=== PATIENT | female | born 1945 | race Caucasian/White ===

== ENCOUNTER → 2018-05-29 | Outpatient (CLI) | payer MEDICARE ==
--- NOTE | 2018-05-29 22:56 | XR ---
EXAMINATION TYPE: XR Hip Bilateral Complete, 2 views each side DATE OF EXAM: 05/29/2018 COMPARISON: NONE HISTORY: 72-year-old female probably arthropathy, bilateral hip pain, trouble walking for 2 weeks TECHNIQUE: 4 views total FINDINGS: There is mild axial joint space narrowing at both hips with marginal spurring. Osteopenia. No acute f racture, subluxation, or dislocation seen. Some changes of osteitis pubis. Additional subarticular sc lerosis in both SI joints. No displaced fracture. IMPRESSION: 1. Mild degenerative change in both hips with axial joint space narrowing. 2. Osteitis pubis and additional degenerative change at both SI joints. 3. Osteopenia without displaced fractures.
== END | disposition home or self-care (01) ==
LOC: RADXRMAIN 15:09
PROVIDERS: ATTEND Internal Medicine Rheumatology
DX: M25.851 Other specified joint disorders, right hip (principal); M25.852 Other specified joint disorders, left hip; M85.88 Other specified disorders of bone density and structure, other site; M86.8X8 Other osteomyelitis, other site
CPT/HCPCS: 73521

== ENCOUNTER → 2018-07-08 | Outpatient (CLI) | payer MEDICARE | END | disposition home or self-care (01) | LOC: RADMRIMAIN 14:37 | PROVIDERS: ATTEND Physical Medicine & Rehabilitation | DX: Z53.9 Procedure and treatment not carried out, unspecified reason (principal) ==

== ENCOUNTER → 2018-07-23 | Outpatient (CLI) | payer MEDICARE ==
--- NOTE | 2018-07-23 15:23 | CT ---
EXAMINATION TYPE: CT lumbar spine wo con DATE OF EXAM: 07/23/2018 1:48 PM COMPARISON: CT thorax dated 05/30/2016 HISTORY: Low back pain X 6 months. R/O Spondylosis without myelopathy CT DLP: 507.30 mGycm Automated exposure control for dose reduction was used. TECHNIQUE: Unenhanced CT of the lumbar spine was performed. Bone and soft tissue window settings are submitted as well as coronal and sagittal reconstructions. FINDINGS: There is an exaggeration of the usual lumbar lordosis. There is very mild anterolisthesis ( grade 1) of L5 on S1, likely on a degenerative basis as there is facet hypertrophy. No pars interarti cularis defects are identified. Mild multilevel degenerative change of the lumbar spine is seen. Ther e is a small compression deformity of T12 with approximately 15% vertebral body height loss of the mi d body and no retropulsion. This is seen on the prior CT thorax dated 05/30/2016. Fibrotic changes are seen at the lung bases with subpleural reticulation and interlobular septal thic kening. Probable mild cardiomegaly is also demonstrated. There is a small hiatal hernia seen. The gal lbladder is enlarged containing innumerable gallstones. Too small to accurately characterize left vinny al lesion is incompletely evaluated without contrast. Probable right sacral perineural cyst is seen on series 4 image 78 and 79. This could be confirmed wi th MR. There is slight subsequent enlargement of the neural foramen and on bone windows aerated L1-L2: There is a small broad-based disc bulge without spinal canal stenosis or significant neural fo raminal narrowing. L2-L3: There is a broad-based disc bulge and facet arthropathy resulting in mild bilateral neural for aminal narrowing and mild spinal canal stenosis. L3-L4: There is a broad-based disc bulge resulting in mild bilateral neural foraminal narrowing and m ild spinal canal stenosis. L4-L5: There is a broad-based disc bulge and vacuum disc disease resulting in minimal bilateral neura l foraminal narrowing. No significant spinal canal stenosis is seen. L5-S1: There is disc uncovering from the anterolisthesis. Minimal bilateral neural foraminal narrowin g is seen. No spinal canal stenosis. Degenerative disc disease and a broad-based disc bulge are prese nt. IMPRESSION: 1. No evidence of acute fracture of the lumbar spine. Chronic mild compression deformity of the T12 v ertebral body is unchanged from the prior CT thorax of 05/30/2016. 2. Grade 1 anterolisthesis of L4 on L5 is likely on degenerative basis due to facet hypertrophy. 3. 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 4. Multilevel degenerative disc disease resulting in multilevel neural foraminal narrowing and spinal canal stenosis that appears mild from L2 through L4. Findings could be better assessed with MRI. 5. Enlarged gallbladder containing innumerable gallstones. 6. Fibrotic changes of the lung bases.
== END | disposition home or self-care (01) ==
LOC: RADCTMAIN 13:16
PROVIDERS: ATTEND Physical Medicine & Rehabilitation
DX: M48.061 Spinal stenosis, lumbar region without neurogenic claudication (principal); M99.73 Connective tissue and disc stenosis of intervertebral foramina of lumbar region; M43.16 Spondylolisthesis, lumbar region; M51.36 Other intervertebral disc degeneration, lumbar region
CPT/HCPCS: 72131

== ENCOUNTER → 2018-08-20 | Outpatient (CLI) | payer MEDICARE ==
--- NOTE | 2018-08-20 20:23 | BD ---
EXAMINATION TYPE: Axial Bone Density DATE OF EXAM: 08/20/2018 CLINICAL HISTORY: 72-year-old female long-term steroid use, postmenopausal screening Height: 66 inches Weight: 180 FRAX RISK QUESTIONS: Alcohol (3 or more units per day): no Family History (Parent hip fracture): no Glucocorticoids (More than 3mos): yes (Ex: prednisone, prednisolone, methylprednisolone, dexamethasone, and hydrocortisone). History of Fracture in Adulthood: no Secondary Osteoporosis: 1. Type 1 Diabetes: no 2. Hyperthyroidism: no 3. Menopause before 45: no 4. Malnutrition: no 5. Chronic liver disease: no Rheumatoid Arthritis: no Current Tobacco Use: no RISK FACTORS HISTORY OF: Family History of Osteoporosis: unsure Active: not fully Diet low in dairy products/other sources of calcium: no Postmenopausal woman: yes Take estrogen and/or progesterone medications: no Lost more than 2 inches in height since high school: unsure Frequent falls: no Poor Health: no Hyperparathyroidism: no Adrenal Insufficiency: no MEDICATIONS: Prednisone or other steroids: yes How Long: about 2 years Thyroid Medications: no Osteoporosis Medications: no Additional Medications: multi-vitamin Additional History: see CT Lumbar Spine report 07/23/18; Scleroderma; osteoarthritis EXAM MEASUREMENTS: Bone mineral densitometry was performed using the Stupil System. Bone mineral density as measured about the Lumbar spine is: ----- L1-L4(G/cm2): 0.826 T Score Values are as follows: ----- L2: -3.6 ----- L3: -2.7 ----- L4: -3.0 ----- L1-L4: -2.9 Bone mineral density BASELINE Bone mineral density about the R hip (g/cm2): 0.582 Bone mineral density about the L hip (g/cm2): 0.631 T Score values are as follows: -----R Neck: -3-3 -----L Neck: -2.9 -----R Total: -3.7 -----L Total: -3.5 Bone mineral density BASELINE IMPRESSION: Osteoporosis (T Score less than -2.5). There is increased fracture risk and therapy is usually indicated based on age. Re-Screen 1-2 years. NOTE: T-SCORE=SD OF THE YOUNG ADULT MEAN.
== END ==
LOC: RADBDWWP 13:47
PROVIDERS: ATTEND Internal Medicine Rheumatology
DX: M81.0 Age-related osteoporosis without current pathological fracture (principal); Z79.52 Long term (current) use of systemic steroids
CPT/HCPCS: 77080

== ENCOUNTER → 2019-05-12 | Outpatient (CLI) | payer MEDICARE | DX: J98.9 Respiratory disorder, unspecified (principal) | CPT/HCPCS: 94060; 94726; 94729 ==

== ENCOUNTER → 2019-07-02 | Outpatient (CLI) | payer MEDICARE ==
--- NOTE | 2019-07-03 11:49 | ECHOF ---
Referral Reason:M34.9 Systemic sclerosis, unspecified MEASUREMENTS -------- HEIGHT: 180.3 cm WEIGHT: 81.6 kg BP: RVIDd: 3.0 cm (< 3.3) IVSd: 1.2 cm (0.6 - 1.1) LVIDd: 3.6 cm (3.9 - 5.3) LVPWd: 1.3 cm (0.6 - 1.1) IVSs: 1.4 cm LVIDs: 1.5 cm LVPWs: 2.0 cm LAESV Index (A-L): 23.30 ml/m Ao Diam: 3.0 cm (2.0 - 3.7) AV Cusp: 1.8 cm (1.5 - 2.6) LA Diam: 4.0 cm (2.7 - 3.8) MV EXCURSION: 18.395 mm (> 18.000) MV EF SLOPE: 67 mm/s (70 - 150) EPSS: 0.6 cm MV E Jose Carlos: 0.64 m/s MV DecT: 178 ms MV A Jose Carlos: 0.97 m/s MV E/A Ratio: 0.66 RAP: 5.00 mmHg RVSP: 26.04 mmHg FINDINGS -------- Sinus rhythm. This was a technically good study. The left ventricular size is normal. There is mild concentric left ventricular hypertrophy. Overa ll left ventricular systolic function is normal with, an EF between 55 - 60 %. The diastolic fillin g pattern is normal for the age of the patient 13.72. The right ventricle is normal in size. The left atrial size is normal. Normal LA size by volume 22+/-6 ml/m2. The right atrial size is normal. The aortic valve is trileaflet and appears structurally normal. The mitral valve is normal. There is trace mitral regurgitation. The tricuspid valve appears structurally normal. Trace tricuspid regurgitation present. Right amadeo tricular systolic pressure is normal at < 35 mmHg. There is no pulmonic regurgitation present. The aortic root size is normal. Normal inferior vena cava with normal inspiratory collapse consistent with estimated right atrial pre ssure of 5 mmHg. The pulmonary veins were not recorded. There is no pericardial effusion. CONCLUSIONS -------- 1. Sinus rhythm. 2. This was a technically good study. 3. The left ventricular size is normal. 4. There is mild concentric left ventricular hypertrophy. 5. Overall left ventricular systolic function is normal with, an EF between 55 - 60 %. 6. The diastolic filling pattern is normal for the age of the patient 13.72 7. The right ventricle is normal in size. 8. The left atrial size is normal. 9. Normal LA size by volume 22+/-6 ml/m2. 10. The right atrial size is normal. 11. The aortic valve is trileaflet and appears structurally normal. 12. The mitral valve is normal. 13. There is trace mitral regurgitation. 14. The tricuspid valve appears structurally normal. 15. Trace tricuspid regurgitation present. 16. Right ventricular systolic pressure is normal at < 35 mmHg. 17. There is no pulmonic regurgitation present. 18. The aortic root size is normal. 19. Normal inferior vena cava with normal inspiratory collapse consistent with estimated right atrial pressure of 5 mmHg. 20. The pulmonary veins were not recorded. 21. There is no pericardial effusion. OUTREACH LIAISON: Cynthia Bass RDCS
== END | disposition home or self-care (01) ==
LOC: RADECHMAIN 14:48
PROVIDERS: ATTEND Internal Medicine Rheumatology
DX: I51.7 Cardiomegaly (principal); M34.9 Systemic sclerosis, unspecified
CPT/HCPCS: 93306

== ENCOUNTER → 2019-12-02 | Outpatient (CLI) | payer MEDICARE ==
--- NOTE | 2019-12-02 15:19 | CT ---
EXAMINATION TYPE: CT chest wo con DATE OF EXAM: 12/02/2019 COMPARISON: Chest CT May 30, 2016 and older study August 04, 2015 HISTORY: Follow up for systemic sclerosis. Interstitial lung disease per order. CT DLP: 80 mGycm. Automated Exposure Control for Dose Reduction was Utilized. TECHNIQUE: CT scan of the thorax is performed without IV contrast. High-resolution protocol ordered with typical 1 mm sequences obtained in supine and prone position at 10 mm intervals. FINDINGS: Exam is suboptimal as patient cannot tolerate prone positioning for prone imaging. LUNGS: Some patchy reticulation and groundglass opacity in the lateral posterior aspect left upper lo be infiltrate seen extending inferiorly is redemonstrated. The mid to lower lungs there is peripheral reticulonodular opacity with increased prominence in the bases just above the diaphragm. Images also show motion artifact degradation. There is some honeycombing when middle lobe thought present axial image 39. No pleural effusion or pneumothorax. No pulmonary masses. MEDIASTINUM: Lack of IV contrast is noted to limit evaluation for mediastinal and especially hilar ad enopathy. There are no definitive greater than 1 cm hilar or mediastinal lymph nodes. No pericardia l effusion is seen. Heart size stable and upper limits of normal. Enlarged main pulmonary artery 3.4 cm, CT findings consistent with underlying pulmonary hypertension.1 OTHER: Prominent right axillary lymph node measuring 1.6 x 1.0 cm axial image 15 warrants follow-up n ew or more prominent from 2016 study. Multilevel spurring in the spine. Multiple small calcified gall stones in gallbladder redemonstrated IMPRESSION: Suboptimal study with pulmonary fibrotic changes greater in the lower lungs redemonstrate d, no obvious progression from 2016 CT. New or more prominent right axillary lymph node, targeted ult rasound follow-up advised.
--- NOTE | 2019-12-03 08:01 | ECHOF ---
Referral Reason:I10 hypertention MEASUREMENTS -------- HEIGHT: 175.3 cm WEIGHT: 81.6 kg BP: RVIDd: 2.4 cm (< 3.3) IVSd: 1.5 cm (0.6 - 1.1) LVIDd: 4.1 cm (3.9 - 5.3) LVPWd: 1.5 cm (0.6 - 1.1) IVSs: 1.7 cm LVIDs: 2.7 cm LVPWs: 1.7 cm LAESV Index (A-L): 22.05 ml/m Ao Diam: 2.8 cm (2.0 - 3.7) AV Cusp: 2.0 cm (1.5 - 2.6) LA Diam: 3.7 cm (2.7 - 3.8) MV EXCURSION: 17.354 mm (> 18.000) MV EF SLOPE: 148 mm/s (70 - 150) EPSS: 0.4 cm MV E Jose Carlos: 1.00 m/s MV DecT: 198 ms MV A Jose Carlos: 1.09 m/s MV E/A Ratio: 0.92 AV maxP.93 mmHg AV meanP.67 mmHg RAP: 5.00 mmHg RVSP: 37.42 mmHg FINDINGS -------- Sinus rhythm. This was a technically good study. The left ventricular size is normal. There is moderate concentric left ventricular hypertrophy. O verall left ventricular systolic function is normal with, an EF between 55 - 60 %. Normal LAP. Grad e 1 Diastolic Dysfunction. The right ventricle is normal in size. The left atrial size is normal. Normal LA size by volume 22+/-6 ml/m2. The right atrial size is normal. The aortic valve is trileaflet and appears structurally normal. Peak/mean gradient across the Aorti c Valve is 16.93mmHg / 9.67mmHg. The mitral valve is normal. The mitral valve leaflets are mildly thickened. Mild mitral regurgita tion is present. The tricuspid valve appears structurally normal. Mild tricuspid regurgitation present. There is m ild pulmonary hypertension. The right ventricular systolic pressure, as measured by Doppler, is 37. 42mmHg. There is no pulmonic regurgitation present. The aortic root size is normal. Normal inferior vena cava with normal inspiratory collapse consistent with estimated right atrial pre ssure of 5 mmHg. There is no pericardial effusion. CONCLUSIONS -------- 1. Sinus rhythm. 2. This was a technically good study. 3. The left ventricular size is normal. 4. There is moderate concentric left ventricular hypertrophy. 5. Overall left ventricular systolic function is normal with, an EF between 55 - 60 %. 6. Normal LAP. Grade 1 Diastolic Dysfunction. 7. The right ventricle is normal in size. 8. The left atrial size is normal. 9. Normal LA size by volume 22+/-6 ml/m2. 10. The right atrial size is normal. 11. The aortic valve is trileaflet and appears structurally normal. 12. Peak/mean gradient across the Aortic Valve is 16.93mmHg / 9.67mmHg. 13. The mitral valve is normal. 14. The mitral valve leaflets are mildly thickened. 15. Mild mitral regurgitation is present. 16. The tricuspid valve appears structurally normal. 17. Mild tricuspid regurgitation present. 18. There is mild pulmonary hypertension. 19. The right ventricular systolic pressure, as measured by Doppler, is 37.42mmHg. 20. There is no pulmonic regurgitation present. 21. The aortic root size is normal. 22. Normal inferior vena cava with normal inspiratory collapse consistent with estimated right atrial pressure of 5 mmHg. 23. There is no pericardial effusion. EMS COORDINATOR: Cynthia Bass RDCS
== END | disposition home or self-care (01) ==
LOC: RADCTMAIN 14:10
PROVIDERS: ATTEND Internal Medicine
DX: J84.10 Pulmonary fibrosis, unspecified (principal); R59.0 Localized enlarged lymph nodes; I08.1 Rheumatic disorders of both mitral and tricuspid valves; I27.20 Pulmonary hypertension, unspecified; M34.9 Systemic sclerosis, unspecified
CPT/HCPCS: 71250; 93306

== ENCOUNTER → 2020-05-10 | Outpatient (CLI) | payer MEDICARE | END | disposition home or self-care (01) | LOC: CPPFTMAIN 13:35 | DX: R94.2 Abnormal results of pulmonary function studies (principal); M34.9 Systemic sclerosis, unspecified | CPT/HCPCS: 94060; 94726; 94729 ==

== ENCOUNTER 2020-08-26 23:36 | Inpatient (IN) | payer MEDICARE ==
--- NOTE | 2020-08-27 00:51 | ED ---
SOB HPI <Ayaan Causey - Last Filed: 08/27/20 02:41> - General Source: patient Mode of arrival: EMS Limitations: no limitations <Muna Cortes - Last Filed: 08/27/20 03:31> - General Chief Complaint: Shortness of Breath Stated Complaint: + COVID, SURYA Time Seen by Provider: 08/26/20 23:38 - History of Present Illness Initial Comments: 74-year-old female patient presents as a transfer from [facility] for COVID-19, hypoxia, and elevated troponin. They believe that her elevated troponin is related to NSTEMI secondary to hypoxia. She was started on heparin there. Review of labs reveals patient had elevated troponin at 0.542, BNP 5600, elevated d-dimer at 3.82. Patient denies history of lung conditions, heart conditions, or diabetes. States that she is usually generally healthy. She is reporting shortness of breath and cough. States she's had symptoms for the last 4-5 days worsening today which prompted her visit to the emergency department. Apparently upon EMS arrival at her home she had O2 saturation in the 60s and appeared very dusky and short of breath. Patient denies any recent rash, fever, chills, cough, shortness of breath, chest pain, abdominal pain, nausea, vomiting, diarrhea, constipation, back pain, numbness, tingling, dizziness, weakness, hematuria, dysuria, urinary urgency, urinary frequency, headache, visual changes, or any other complaints. (Muna Cortes) - Related Data Home Medications Medication Instructions Recorded Confirmed NIFEdipine [Nifedical Xl] 30 mg PO DAILY 06/28/15 12/15/15 Furosemide [Lasix] 20 mg PO DAILY PRN 10/06/15 12/15/15 Allergies Allergy/AdvReac Type Severity Reaction Status Date / Time clindamycin HCl Allergy Rash/Hives Verified 12/15/15 14:16 [From Cleocin] clindamycin palmitate HCl Allergy Rash/Hives Verified 12/15/15 14:16 [From Cleocin] clindamycin phosphate Allergy Rash/Hives Verified 12/15/15 14:16 [From Cleocin] latex Allergy Rash/Hives Verified 12/15/15 14:16 Review of Systems ROS Other: All systems not noted in ROS Statement are negative. <Ayaan Causey - Last Filed: 08/27/20 02:41> ROS Other: All systems not noted in ROS Statement are negative. <Muna Cortes M - Last Filed: 08/27/20 03:31> ROS Statement: Those systems with pertinent positive or pertinent negative responses have been documented in the HPI. Past Medical History Additional Past Medical History / Comment(s): Raunaulds syndrome, Scoliosis of the skin, varicose veins, hx bleeding from ruptured varicosities. History of Any Multi-Drug Resistant Organisms: None Reported Past Surgical History: No Surgical Hx Reported Past Psychological History: No Psychological Hx Reported Smoking Status: Never smoker Past Alcohol Use History: None Reported Past Drug Use History: None Reported - Past Family History Mother Family Medical History: Dementia, Hypertension Additional Family Medical History / Comment(s): Lived until 102 Father Family Medical History: COPD Additional Family Medical History / Comment(s): in his late 60's from emphysema <SebastianMuna M - Last Filed: 08/27/20 03:31> General Exam Limitations: no limitations General appearance: alert, in no apparent distress, other (This is a well- developed, well-nourished elderly female patient in no acute distress. Vital signs upon presentation are temperature 97.3F, pulse 72, respirations 23, blood pressure 127/73, pulse ox 96% on 15 L via nonrebreather.) ENT exam: Present: normal exam, normal oropharynx, mucous membranes moist Neck exam: Present: normal inspection. Absent: tenderness, meningismus, lymphadenopathy Respiratory exam: Present: normal lung sounds bilaterally. Absent: respiratory distress, wheezes, rales, rhonchi, stridor Cardiovascular Exam: Present: regular rate, normal rhythm, normal heart sounds. Absent: systolic murmur, diastolic murmur, rubs, gallop, clicks GI/Abdominal exam: Present: soft, normal bowel sounds. Absent: distended, tenderness, guarding, rebound, rigid Neurological exam: Present: alert, oriented X3, CN II-XII intact Psychiatric exam: Present: normal affect, normal mood Skin exam: Present: warm, dry, intact, normal color. Absent: rash <Muna Cortes M - Last Filed: 08/27/20 03:31> Course Vital Signs 08/26/20 23:53 Temperature 97.3 F L Pulse Rate 72 Respiratory 23 Rate Blood Pressure 127/73 O2 Sat by Pulse 96 Oximetry Medical Decision Making <GlenysAyaan shay - Last Filed: 08/27/20 02:41> - EKG Data -: EKG Interpreted by Me - Radiology Data Radiology results: report reviewed, image reviewed <Muna Cortes - Last Filed: 08/27/20 03:31> - Medical Decision Making I saw this patient in conjunction with the nurse practitioner. I performed independent history and physical exam. Agree with case management. (Ayaan Causey) 74-year-old female patient is a transfer from [facility] for positive coated and hypoxia. Patient also had elevated troponin which is felt to be NSTEMI secondary to hypoxia. Patient was initially found to be 60% on room air when EMS arrived to her home. She was started on 15 L via nonrebreather and transferred to the hospital. There she underwent testing and ended up having positive coated and troponin at 0.54, BNP at 5600. She also had elevated d- dimer at 3.82. She was started on heparin and transferred here for further evaluation and monitoring. Upon arrival we did perform CT angiography of the chest to rule out pulmonary embolism, this is negative. She did receive a dose of dexamethasone at the previous facility. Case was discussed with Dr. Swenson who recommends admission to ICU. Dr. Cooper was consulted by my attending Dr. Causey. I did discuss CODE STATUS with the patient, she agrees to receiving CPR but does not want intubation at this time. (Muna Cortes) - EKG Data EKG Comments: EKG obtained at oh to 16 shows normal sinus rhythm with an incomplete right bundle branch block. Ventricular rate is 76, ND interval 138, QRS duration 92, QT 394, QTC 443. No evidence of ST elevation or depression (Muna Cortes) - Radiology Data CT angiography of the chest was obtained. Report was reviewed in its entirety. Impression by Dr. Han shows extensive patchy groundglass opacities throughout the lungs. Correlate with coated. Pulmonary edema not excluded. Cardiomegaly. No pulmonary embolus. (Muna Cortes) Disposition <GlenyslauritaAyaan - Last Filed: 08/27/20 02:41> Decision to Admit Reason: Admit from EC Decision Date: 08/27/20 Decision Time: 02:52 <Muna Cortes - Last Filed: 08/27/20 03:31> Clinical Impression: COVID-19, Hypoxia, NSTEMI (non-ST elevated myocardial infarction) Disposition: ADMITTED IP TO THIS HOSP Condition: Serious
--- NOTE | 2020-08-27 02:04 | CT ---
EXAM: CT Angiography Chest With Intravenous Contrast CLINICAL HISTORY: ITS.REASON CT Reason: Elevated D-dimer; Elevated trop TECHNIQUE: Axial computed tomographic angiography images of the chest with intravenous contrast. CTDI is 19.57 mGy and DLP is 261.9 mGy-cm. This CT exam was performed using one or more of the following dose reduction techniques: automated exposure control, adjustment of the mA and/or kV according to patient size, and/or use of iterative reconstruction technique. MIP reconstructed images were created and reviewed. COMPARISON: 12/02/2019 FINDINGS: Pulmonary arteries: No filling defects. Aorta: No thoracic aortic aneurysm. Lungs: Extensive patchy groundglass opacities throughout the lungs. Pleural space: No pneumothorax. No effusion. Heart: cardiomegaly. No pericardial effusion. Bones/joints: No acute fracture or dislocation. Soft tissues: Unremarkable. Lymph nodes: No enlarged lymph nodes. IMPRESSION: 1. Extensive patchy groundglass opacities throughout the lungs. Correlate with COVID. Pulmonary edema not excluded. 2. Cardiomegaly. 3. No pulmonary embolism.
[2020-08-27] MEDS ORDERED: NALOXONE 0.4 MG/ML 1 ML VIAL IV PRN (02:24)
[2020-08-27] MEDS: HEPARIN SOD,PORK IN 0.45% NACL 25,000 UNIT in 0.45% NACL 1 250ML.BAG IV SCH (03:43)
[2020-08-27 04:11] LABS: Basophils % (A) 1 %; Eosinophils % (A) 0 %; HCT 36.5 % (34.0-46.0); HGB 11.7 gm/dL (11.4-16.0); Hypochromasia Slight; Lymphocytes # (A) 0.6 k/uL (1.0-4.8); Lymphocytes % (A) 11 %; MCH 26.5 pg (25.0-35.0); MCHC 32.2 g/dL (31.0-37.0); MCV 82.3 fL (80.0-100.0); Mean Platelet Volume 7.9; Monocytes # (A) 0.2 k/uL (0-1.0); Monocytes % (A) 3 %; Neutrophils # (A) 4.4 k/uL (1.3-7.7); Neutrophils % (A) 83 %; Platelet Count 349 k/uL (150-450); RBC 4.43 m/uL (3.80-5.40); RDW 15.5 % (11.5-15.5); WBC 5.3 k/uL (3.8-10.6)
[2020-08-27 04:21] LABS: Prothrombin Time 10.7 sec (9.0-12.0)
--- NOTE | 2020-08-27 09:57 | P.CRDCN ---
History of Present Illness Consult date: 08/27/20 History of present illness: This is a 74-year-old female with history of hypertension who is been having symptoms of shortness of breath and cough for 4 to 5 days prior to admission. Patient was taken by EMS to [facility] because of shortness of breath and hypoxia. She was diagnosed to have COVID Pneumonia. She was also found to have mildly elevated troponin values. Patient did not have any chest pain, according to the information available. EKG not reveal any acute changes of ischemia. From the available information, patient did not have any history of previous myocardial infarction or ischemic heart disease. The pattern of troponin elevation is not consistent with acute coronary syndrome. Could be related to hypoxia related to pneumonia. We'll get an echocardiogram to assess LV function. Patient is being treated for Covid with cocktail. Prognosis is guarded. This patient is not personally examined because of COVID infection. 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 History of Any Multi-Drug Resistant Organisms: None Reported Past Surgical History: No Surgical Hx Reported Past Psychological History: No Psychological Hx Reported Smoking Status: Never smoker Past Alcohol Use History: None Reported Past Drug Use History: None Reported - Past Family History Mother Family Medical History: Dementia, Hypertension Additional Family Medical History / Comment(s): Lived until 102 Father Family Medical History: COPD Additional Family Medical History / Comment(s): in his late 60's from emphysema Medications and Allergies Home Medications Medication Instructions Recorded Confirmed Type NIFEdipine [Nifedical Xl] 30 mg PO DAILY 06/28/15 12/15/15 History Furosemide [Lasix] 20 mg PO DAILY PRN 10/06/15 12/15/15 History Allergies Allergy/AdvReac Type Severity Reaction Status Date / Time clindamycin HCl Allergy Rash/Hives Verified 12/15/15 14:16 [From Cleocin] clindamycin palmitate HCl Allergy Rash/Hives Verified 12/15/15 14:16 [From Cleocin] clindamycin phosphate Allergy Rash/Hives Verified 12/15/15 14:16 [From Cleocin] latex Allergy Rash/Hives Verified 12/15/15 14:16 Physical Exam Vitals: Vital Signs Temp Pulse Resp BP Pulse Ox 08/27/20 08:00 68 18 117/67 95 08/27/20 06:00 72 20 124/77 100 08/27/20 05:00 75 20 118/69 89 L 08/27/20 03:47 99.1 F 78 20 117/76 95 08/27/20 01:00 94 L 08/27/20 00:00 24 08/26/20 23:53 97.3 F L 72 23 127/73 96 Intake and Output 08/26/20 08/27/20 08/27/20 22:59 06:59 14:59 Other: Weight 81.647 kg Patient is not personally examined. Heart rhythm is regular. Information is gathered from nurses notes and consultants reports. Results 08/27/20 03:25 Cardiac Enzymes 08/27/20 08/27/20 Range/Units 02:21 03:25 Troponin I 0.530 H* 0.486 H* (0.000-0.034) ng/mL Coagulation 08/27/20 Range/Units 03:25 PT 10.7 (9.0-12.0) sec APTT 21.0 L (22.0-30.0) sec CBC 08/27/20 Range/Units 03:25 WBC 5.3 (3.8-10.6) k/uL RBC 4.43 (3.80-5.40) m/uL Hgb 11.7 (11.4-16.0) gm/dL Hct 36.5 (34.0-46.0) % Plt Count 349 (150-450) k/uL Current Medications Generic Name Dose Route Start Last Admin Trade Name Alexanderq PRN Reason Stop Dose Admin Acetaminophen 650 mg 08/27/20 02:30 Acetaminophen Tab 325 Mg Tab PO Q4HR PRN Fever and/or Mild Pain Dexamethasone 6 mg 08/27/20 09:00 Dexamethasone 2 Mg Tab PO DAILY ISAÍAS Heparin Sodium (Porcine) 0 unit 08/27/20 02:23 Heparin Sodium,Porcine 5,000 Unit/Ml 1 Ml Vial IV PER PROTOCOL PRN Low PTT Protocol Heparin Sodium/Sodium Chloride 250 mls @ 9.798 mls/hr 08/27/20 02:30 08/27/20 03:43 25,000 unit/ Sodium Chloride IV 12 units/kg/hr .Q24H ISA[facility]AS 9.798 mls/hr Administration Protocol 12 UNITS/KG/HR Naloxone HCl 0.2 mg 08/27/20 02:24 Naloxone 0.4 Mg/Ml 1 Ml Vial IV Q2M PRN Opioid Reversal Intake and Output 08/26/20 08/27/20 08/27/20 22:59 06:59 14:59 Other: Weight 81.647 kg 08/27/20 03:25 EKG Interpretations (text) Sinus rhythm Assessment and Plan (1) Troponin level elevated Current Visit: Yes Status: Acute Code(s): R77.8 - OTHER SPECIFIED ABNORMALITIES OF PLASMA PROTEINS SNOMED Code(s): 400703711 (2) COVID-19 Current Visit: Yes Status: Acute Code(s): U07.1 - COVID-19 SNOMED Code(s): 472997150 (3) Hypoxia Current Visit: Yes Status: Acute Code(s): R09.02 - HYPOXEMIA SNOMED Code(s): 677251837 Plan: Continue current medical therapy. Get an echocardiogram to rule out any wall motion abnormalities. Further recommendation depending upon the clinical course. Continue with aspirin and beta blockers
[2020-08-27] MEDS: HEPARIN SODIUM,PORCINE 5,000 UNIT/ML 1 ML VIAL IV PRN (11:12)
[2020-08-27] MEDS: dexAMETHasone 2 MG TAB PO SCH (11:43)
[2020-08-27] MEDS ORDERED: PSEUDOEPHEDRINE 12HR 120 MG TABLET.ER PO PRN (12:38)
[2020-08-27] MEDS ORDERED: NON FORMULARY DRUG (Acetaminophen [Tylenol Arthritis] 650 MG Tablet.Er) PO PRN (12:38)
[2020-08-27] MEDS: NIFEdipine XL 30 MG TAB.ER.24 PO SCH ×2 (13:49→21:15)
[2020-08-27] MEDS ORDERED: REMDESIVIR 200 MG in SODIUM CHLORIDE 0.9% 250 ML IVPB ONE (16:00)
--- NOTE | 2020-08-27 16:14 | P.HPIM ---
History of Present Illness H&P Date: 08/27/20 Claribel Ruiz, is a 74-year-old female patient of Dr. christiansen who presented to [facility] with a chief complaint of cough and shortness of breath, patient was transferred from [facility] she had elevated troponin level and positive Covid 19 testing she was evaluated in emergency room she was started on IV heparin [facility] in the relation non-ST elevation myocardial infarction with elevated troponin, patient also had elevated d-dimer at 3.[address] angiogram of the chest that was negative for pulmonary embolism however it was positive for extensive patchy groundglass opacities throughout the lungs. Patient was seen and examined in the emergency room she is alert and oriented 3 in no apparent distress she is maintained on oxygen via nasal cannula at 6 L there is no fever or chills no headache or dizziness she has cough and shortness of breath no chest pain no nausea or vomiting no abdominal pain no diarrhea no blood in the stools no burning with urination no frequency or urgency and no hematuria Past Medical History Additional Past Medical History / Comment(s): Raunaulds syndrome, Scoliosis of the skin, varicose veins, hx bleeding from ruptured varicosities. History of Any Multi-Drug Resistant Organisms: None Reported Past Surgical History: No Surgical Hx Reported Past Psychological History: No Psychological Hx Reported Smoking Status: Never smoker Past Alcohol Use History: None Reported Past Drug Use History: None Reported - Past Family History Mother Family Medical History: Dementia, Hypertension Additional Family Medical History / Comment(s): Lived until 102 Father Family Medical History: COPD Additional Family Medical History / Comment(s): in his late 60's from emphysema Medications and Allergies Home Medications Medication Instructions Recorded Confirmed Type NIFEdipine [Nifedical Xl] 30 mg PO BID 06/28/15 08/27/20 History Acetaminophen [Tylenol Arthritis] 650 mg PO Q8H PRN 08/27/20 08/27/20 History Alendronate Sodium [Binosto] 70 mg PO WE 08/27/20 08/27/20 History Celebrex Unknown Strength 1 cap PO DAILY PRN 08/27/20 08/27/20 History Cholecalciferol [Vitamin D3 (25 1,000 unit PO DAILY 08/27/20 08/27/20 History Mcg = 1000 Iu)] Mycophenolate Mofetil [Cellcept] 500 mg PO TID 08/27/20 08/27/20 History Pseudoephedrine 12Hr [Sudafed 12Hr] 120 mg PO Q12H PRN 08/27/20 08/27/20 History predniSONE 10 mg PO DAILY 08/27/20 08/27/20 History traMADol HCL 50 mg PO TID PRN 08/27/20 08/27/20 History Allergies Allergy/AdvReac Type Severity Reaction Status Date / Time clindamycin HCl Allergy Rash/Hives Verified 08/27/20 10:09 [From Cleocin] clindamycin palmitate HCl Allergy Rash/Hives Verified 08/27/20 10:09 [From Cleocin] clindamycin phosphate Allergy Rash/Hives Verified 08/27/20 10:09 [From Cleocin] latex Allergy Rash/Hives Verified 08/27/20 10:09 Physical Exam Vitals: Vital Signs Temp Pulse Resp BP Pulse Ox 08/27/20 11:11 65 16 116/64 90 L 08/27/20 11:00 98.1 F 76 18 116/64 91 L 08/27/20 08:00 68 18 117/67 95 08/27/20 06:00 72 20 124/77 100 08/27/20 05:00 75 20 118/69 89 L 08/27/20 03:47 99.1 F 78 20 117/76 95 08/27/20 01:00 94 L 08/27/20 00:00 24 08/26/20 23:53 97.3 F L 72 23 127/73 96 Intake and Output 08/26/20 08/27/20 08/27/20 22:59 06:59 14:59 Intake Total 73.485 Balance 73.485 Intake: Intake, IV Titration 73.485 Amount Heparin Sod,Pork in 0.45% 73.485 NaCl 25,000 unit In 0.45 % NaCl 1 250ml.bag @ 12 UNITS/KG/HR 9.798 mls/hr IV .Q24H [facility] Rx#: [id number] Other: Weight 81.647 kg In general patient is alert and oriented 3 in no apparent distress HEENT head normocephalic and atraumatic Neck is supple no JVD no goiter no lymphadenopathy Chest exam reveals fine crackles in both lung torres no wheezing Cardiac exam reveals regular heart sounds S1 and S2 no gallops no murmurs Abdomen is soft nontender no organomegaly with normal bowel sounds Extremity exam reveals minimal edema no cyanosis or clubbing Neurological examination reveals no gross focal neurological deficit Results CBC & Chem 7: 08/27/20 03:25 Labs: Abnormal Lab Results - Last 24 Hours (Table) 08/27/20 08/27/20 08/27/20 Range/Units 02:21 03:25 03:25 Lymphocytes # 0.6 L (1.0-4.8) k/uL APTT 21.0 L (22.0-30.0) sec Troponin I 0.530 H* (0.000-0.034) ng/mL 08/27/20 Range/Units 03:25 Lymphocytes # (1.0-4.8) k/uL APTT (22.0-30.0) sec Troponin I 0.486 H* (0.000-0.034) ng/mL Assessment and Plan Plan: 1. Covid 19 pneumonia pulmonary consultation requested, patient will be started on Decadron and Remdesevi 2. Elevated troponin level, patient was seen by cardiology, it was felt that her troponin elevation is related to hypoxia there was no evidence of acute coronary syndrome 3. Underlying history of scoliosis with chronic back pain 4. Underlying history of Raynaud's syndrome 5. Underlying history of hypertension At this time medication and labs were reviewed Cardiology and pulmonary consultation requested Recheck labs and chest x-ray in a.m. Will follow closely
--- NOTE | 2020-08-27 17:18 | P.CNPUL ---
History of Present Illness Consult date: 08/27/20 Requesting physician: Akbar Swenson Reason for consult: other (Acute hypoxic respiratory failure secondary to covid 19 pneumonitis.) Chief complaint: Cough and shortness of breath History of present illness: This is a 74-year-old female with history of multiple medical problems including scleroderma, Raynaud's syndrome, patient was transferred yesterday from [facility] to [facility] with symptoms of shortness of breath, fever, and she was noted to have positive pcr covid 19. Patient was also noted to have elevated troponin level while at [facility]. Patient was started on heparin at [facility] for presumptive non-ST elevation myocardial infarction, CT angiogram done at [facility] showed extensive patchy groundglass opacities affecting both lungs. Patient required increase in her FiO2 up to 15 L flow per minute, and I was asked to see her on consultation. I saw this patient in the ER, she is now on 11 L high flow nasal cannula, and her O2 saturation is ranging anywhere between 91-95%. Patient is noted to be in no distress, her symptoms of shortness of breath are about 1 week in urination. After evaluating the patient, we recommended that the patient goes on the Covid 19 cocktail, and we initiated remdesivir. Patient clearly wished DO NOT RES USCITATE CODE STATUS, hence we'll arrange for the patient to be transferred to a regular medical floor instead of transferred to the ICU. Review of Systems Constitutional: Fever, chills, vague aches and pains, no weight loss. HEENT: Negative. Pulmonary: Cough and shortness of breath GI: Negative Genitourinary: Negative Muscular skeletal: Negative Skin: Negative Psychiatric: Negative Hematologic: Negative Neurologic: Negative Psychiatric: Past Medical History Additional Past Medical History / Comment(s): Raunaulds syndrome, Scoliosis of the skin, varicose veins, hx bleeding from ruptured varicosities. History of Any Multi-Drug Resistant Organisms: None Reported Past Surgical History: No Surgical Hx Reported Past Psychological History: No Psychological Hx Reported Smoking Status: Never smoker Past Alcohol Use History: None Reported Past Drug Use History: None Reported - Past Family History Mother Family Medical History: Dementia, Hypertension Additional Family Medical History / Comment(s): Lived until 102 Father Family Medical History: COPD Additional Family Medical History / Comment(s): in his late 60's from emphysema Medications and Allergies Home Medications Medication Instructions Recorded Confirmed Type NIFEdipine [Nifedical Xl] 30 mg PO BID 06/28/15 08/27/20 History Acetaminophen [Tylenol Arthritis] 650 mg PO Q8H PRN 08/27/20 08/27/20 History Alendronate Sodium [Binosto] 70 mg PO WE 08/27/20 08/27/20 History Celebrex Unknown Strength 1 cap PO DAILY PRN 08/27/20 08/27/20 History Cholecalciferol [Vitamin D3 (25 1,000 unit PO DAILY 08/27/20 08/27/20 History Mcg = 1000 Iu)] Mycophenolate Mofetil [Cellcept] 500 mg PO TID 08/27/20 08/27/20 History Pseudoephedrine 12Hr [Sudafed 12Hr] 120 mg PO Q12H PRN 08/27/20 08/27/20 History predniSONE 10 mg PO DAILY 08/27/20 08/27/20 History traMADol HCL 50 mg PO TID PRN 08/27/20 08/27/20 History Allergies Allergy/AdvReac Type Severity Reaction Status Date / Time clindamycin HCl Allergy Rash/Hives Verified 08/27/20 10:09 [From Cleocin] clindamycin palmitate HCl Allergy Rash/Hives Verified 08/27/20 10:09 [From Cleocin] clindamycin phosphate Allergy Rash/Hives Verified 08/27/20 10:09 [From Cleocin] latex Allergy Rash/Hives Verified 08/27/20 10:09 Physical Exam Vitals: Vital Signs Temp Pulse Resp BP Pulse Ox 08/27/20 16:36 60 22 117/59 91 L 08/27/20 11:11 65 16 116/64 90 L 08/27/20 11:00 98.1 F 76 18 116/64 91 L 08/27/20 08:00 68 18 117/67 95 08/27/20 06:00 72 20 124/77 100 08/27/20 05:00 75 20 118/69 89 L 08/27/20 03:47 99.1 F 78 20 117/76 95 08/27/20 01:00 94 L 08/27/20 00:00 24 08/26/20 23:53 97.3 F L 72 23 127/73 96 Intake and Output 08/27/20 08/27/20 08/27/20 06:59 14:59 22:59 Intake Total 73.485 Balance 73.485 Intake: Intake, IV Titration 73.485 Amount Heparin Sod,Pork in 0.45% 73.485 NaCl 25,000 unit In 0.45 % NaCl 1 250ml.bag @ 12 UNITS/KG/HR 9.798 mls/hr IV .Q24H [facility] Rx#: [id number] Other: Weight 81.647 kg General appearance: Revealed a 74-year-old female on 11 L high flow nasal cannula, in no distress ENT exam: Present: normal exam, normal oropharynx, mucous membranes moist Neck exam: Present: normal inspection. Absent: tenderness, meningismus, lymphadenopathy Respiratory exam: Symmetrical chest expansion, minimal fine crackles at the bases, no rhonchi and no wheezes. Cardiovascular Exam: Normal S1 and S2, no S3 gallop. No murmur. GI/Abdominal exam: Soft nontender no megaly no rebound no guarding. Neurological exam: Alert and oriented 3, no gross focal deficits. Psychiatric exam: Normal mood, affect and normal mental status examination. Skin exam: No rashes, no cyanosis, no jaundice. Results - Laboratory Findings CBC and BMP: 08/27/20 03:25 PT/INR, D-dimer PT 10.7 sec (9.0-12.0) 08/27/20 03:25 INR 1.0 (<1.2) 08/27/20 03:25 Abnormal lab findings: Abnormal Labs 08/27/20 08/27/20 08/27/20 02:21 03:25 03:25 Lymphocytes # 0.6 L APTT 21.0 L Troponin I 0.530 H* 08/27/20 03:25 Lymphocytes # APTT Troponin I 0.486 H* - Diagnostic Findings CT scan - chest: image reviewed (CT angiogram of the chest showed extensive patchy groundglass opacities throughout both lungs. Differential diagnosis of course includes Covid 19 pneumonitis and/or pulmonary edema or both.) Assessment and Plan Assessment: Impression: Acute hypoxic respiratory failure secondary to Covid 19 pneumonitis. History of scleroderma and Raynaud's syndrome. History of benign essential hypertension. Elevated troponin on presentation, felt to be nonsignificant by cardiology on the case. Recommendation: Continue present supportive care measures. Admit patient to regular medical floor. Titrate oxygen to maintain O2 saturation above 90%. Continue remdesivir Continue the Covid 19 cocktail. We'll continue to follow. Time with Patient: Greater than 30
--- NOTE | 2020-08-27 18:02 | XR ---
EXAMINATION TYPE: XR chest 1V DATE OF EXAM: 08/27/2020 COMPARISON: Yesterday HISTORY: Short of breath TECHNIQUE: Single view FINDINGS: There is moderately severe diffuse pulmonary interstitial infiltrate. Heart is borderline e nlarged. Pulmonary vascularity is difficult to evaluate. There is no definite pleural effusion. IMPRESSION: Extensive pulmonary interstitial pneumonia is the same or slightly worse than yesterday.
[2020-08-27] MEDS: METOPROLOL TARTRATE 12.5 MG TAB PO SCH (21:19)
[2020-08-27] MEDS: ASPIRIN 81 MG PO SCH (21:19)
[2020-08-28] MEDS: HEPARIN SOD,PORK IN 0.45% NACL 25,000 UNIT in 0.45% NACL 1 250ML.BAG IV SCH ×2 (03:12→09:28)
[2020-08-28 05:21] LABS: Basophils # (A) 0.1 k/uL (0-0.2); Basophils % (A) 1 %; Eosinophils % (A) 0 %; HCT 35.2 % (34.0-46.0); HGB 11.1 gm/dL (11.4-16.0); Hypochromasia Slight; Lymphocytes # (A) 1.2 k/uL (1.0-4.8); Lymphocytes % (A) 12 %; MCH 26.2 pg (25.0-35.0); MCHC 31.5 g/dL (31.0-37.0); MCV 83.3 fL (80.0-100.0); Mean Platelet Volume 8.1; Monocytes # (A) 0.5 k/uL (0-1.0); Monocytes % (A) 5 %; Neutrophils # (A) 7.7 k/uL (1.3-7.7); Neutrophils % (A) 79 %; Platelet Count 414 k/uL (150-450); RBC 4.22 m/uL (3.80-5.40); RDW 15.8 % (11.5-15.5); WBC 9.7 k/uL (3.8-10.6)
[2020-08-28] MEDS: traMADol 50 MG TAB PO PRN ×2 (05:59→21:25)
[2020-08-28] MEDS: HEPARIN SODIUM,PORCINE 5,000 UNIT/ML 1 ML VIAL IV PRN (06:00)
[2020-08-28] MEDS: dexAMETHasone 2 MG TAB PO SCH (09:30)
[2020-08-28] MEDS: CHOLECALCIFEROL 1,000 UNIT TAB PO SCH (09:30)
[2020-08-28] MEDS: METOPROLOL TARTRATE 12.5 MG TAB PO SCH ×2 (09:30→21:25)
[2020-08-28] MEDS: NIFEdipine XL 30 MG TAB.ER.24 PO SCH ×2 (09:31→22:32)
[2020-08-28 10:01] LABS: African American GFR (CKD) 103.3 (60.0-200.0); Albumin 3.6 g/dL (3.80-4.90); Albumin/Globulin Ratio 1.5 (1.60-3.17); Anion Gap 11.1 mmol/L (4.00-12.00); Carbon Dioxide 23.9 mmol/L (21.6-31.8); Globulin 2.4 g/dL (1.6-3.3); Non-African American GFR(CKD) 89.2 (60.0-200.0); Potassium 4.5 mmol/L (3.5-5.5); Total Bilirubin 0.4 mg/dL (0.2-1.2)
--- NOTE | 2020-08-28 11:18 | ECHOF ---
Referral Reason: MEASUREMENTS -------- HEIGHT: 177.8 cm WEIGHT: 81.6 kg BP: IVSd: 1.2 cm (0.6 - 1.1) LVIDd: 4.2 cm (3.9 - 5.3) LVPWd: 1.0 cm (0.6 - 1.1) EDV(Teich): 78 ml IVSs: 1.8 cm LVIDs: 3.4 cm LVPWs: 1.7 cm %IVS Thck: 50 % ESV(Teich): 46 ml EF(Teich): 42 % %FS: 20 % SV(Teich): 33 ml RVIDd: 2.8 cm (< 3.3) IVC: 15.40 mm Ao Diam: 2.9 cm (2.0 - 3.7) LA Diam: 3.6 cm (2.7 - 3.8) AV Cusp: 1.9 cm (1.5 - 2.6) EPSS: 0.9 cm MV E Jose Carlos: 0.70 m/s MV DecT: 271 ms MV Dec [place]: 2.6 m/s MV A Jose Carlos: 1.05 m/s MV E/A Ratio: 0.67 MV PHT: 79 ms MR Vmax: 2.77 m/s MR maxP.72 mmHg AV Vmax: 1.60 m/s AV maxP.27 mmHg TR Vmax: 3.09 m/s TR maxP.24 mmHg RAP: 5.00 mmHg RVSP: 43.24 mmHg MV EF SLOPE: 66.11 mm/s (70 - 150) MV EXCURSION: 13.54 mm (> 18.000) FINDINGS -------- This was a technically adequate study. The left ventricular size is normal. There is borderline concentric left ventricular hypertrophy. Overall left ventricular systolic function is low-normal with, an EF between 50 - 55 %. The right ventricle is normal in size. The left atrial size is normal. The right atrial size is normal. The aortic valve is trileaflet and appears structurally normal. The mitral valve is normal. The mitral valve leaflets are mildly thickened. Mild mitral regurgita tion is present. There is mild mitral valve prolapse. The tricuspid valve appears structurally normal. Mild tricuspid regurgitation present. There is m ild pulmonary hypertension. The right ventricular systolic pressure, as measured by Doppler, is 43. 24mmHg. There is no pulmonic regurgitation present. The aortic root size is normal. Normal inferior vena cava with normal inspiratory collapse consistent with estimated right atrial pre ssure of 5 mmHg. There is no pericardial effusion. CONCLUSIONS -------- 1. The left ventricular size is normal. 2. There is borderline concentric left ventricular hypertrophy. 3. Overall left ventricular systolic function is low-normal with, an EF between 50 - 55 %. 4. The mitral valve leaflets are mildly thickened. 5. Mild mitral regurgitation is present. 6. There is mild mitral valve prolapse. 7. Mild tricuspid regurgitation present. 8. There is mild pulmonary hypertension. 9. The right ventricular systolic pressure, as measured by Doppler, is 43.24mmHg. 10. There is no pericardial effusion. REFUELER: Cynthia Bass RDCS
--- NOTE | 2020-08-28 13:44 | P.PN ---
Subjective Progress Note Date: 08/28/20 Principal diagnosis: Acute hypoxic respiratory failure secondary to CoVID 19 pneumonitis This is a 74-year-old female with history of multiple medical problems including scleroderma, Raynaud's syndrome, patient was transferred yesterday from [facility] to [facility] with symptoms of shortness of breath, fever, and she was noted to have positive pcr covid 19. Patient was also noted to have elevated troponin level while at [place]. Patient was started on heparin at [facility] for presumptive non-ST elevation myocardial infarction, CT angiogram done at [place] showed extensive patchy groundglass opacities affecting both lungs. Patient required increase in her FiO2 up to 15 L flow per minute, and I was asked to see her on consultation. I saw this patient in the ER, she is now on 11 L high flow nasal cannula, and her O2 saturation is ranging anywhere between 91-95%. Patient is noted to be in no distress, her symptoms of shortness of breath are about 1 week in urination. After evaluating the patient, we recommended that the patient goes on the Covid 19 cocktail, and we initiated remdesivir. Patient clearly wished DO NOT RESU SCITATE CODE STATUS, hence we'll arrange for the patient to be transferred to a regular medical floor instead of transferred to the ICU. The patient is seen today 08/28/2020 in follow-up on the regular medical floor. She is currently sitting up in a chair at the bedside. Awake and alert in no ac juno distress. He states her breathing is a bit easier today compared to yesterday. Still dyspneic with minimal exertion. Still requiring 11 L high flow nasal cannula to maintain O2 saturations in the 90s. She's been afebrile. Hemodynamically stable. White count 9.7. Hemoglobin 11.1. Sodium 138. Potassium 4.5. Creatinine 0.6. This is day 2 of Remdesivir. She remains on dexamethasone, heparin drip for elevated troponin. Objective - Vital Signs Vital signs: Vital Signs Temp 97.5 F L 08/28/20 08:00 Pulse 73 08/28/20 08:00 Resp 16 08/28/20 08:00 BP 101/61 08/28/20 08:00 Pulse Ox 96 08/28/20 08:00 Intake & Output 08/27/20 08/28/20 08/28/20 18:59 06:59 18:59 Intake Total 73.485 510.807 105.076 Balance 73.485 510.807 105.076 Weight 78.018 kg Intake: Intake, IV Titration 73.485 210.807 105.076 Amount Heparin Sod,Pork in 0.45% 73.485 210.807 105.076 NaCl 25,000 unit In 0.45 % NaCl 1 250ml.bag @ 12 UNITS/KG/HR 9.798 mls/hr IV .Q24H [facility] Rx#: [id number] Oral 300 Other: Voiding Method Bedside Commode Bedside Commode # Voids 1 1 - Exam GENERAL EXAM: Alert, pleasant 74-year-old female patient, on 11 L high flow nasal cannula, up in a chair at the bedside, comfortable in no apparent distress. HEAD: Normocephalic. EYES: Normal reaction of pupils, equal size. NOSE: Clear with pink turbinates. THROAT: No erythema or exudates. NECK: No masses, no JVD. CHEST: No chest wall deformity. LUNGS: Equal air entry with basilar crackles, no wheeze, rhonchi or dullness. CVS: S1 and S2 normal with no audible murmur, regular rhythm. ABDOMEN: No hepatosplenomegaly, normal bowel sounds, no guarding or rigidity. SPINE: No scoliosis or deformity SKIN: No rashes CENTRAL NERVOUS SYSTEM: No focal deficits, tone is normal in all 4 extremities. EXTREMITIES: There is no peripheral edema. No clubbing, no cyanosis. Peripheral pulses are intact. - Labs CBC & Chem 7: 08/28/20 04:21 08/28/20 04:21 Labs: Abnormal Lab Results - Last 24 Hours (Table) 08/27/20 08/28/20 08/28/20 Range/Units 16:58 04:21 04:21 Hgb 11.1 L (11.4-16.0) gm/dL RDW 15.8 H (11.5-15.5) % APTT 45.9 H (22.0-30.0) sec BUN/Creatinine Ratio 40.00 H (12.00-20.00) Ratio Glucose 113 H (70-110) mg/dL Total Protein 6.0 L (6.2-8.2) g/dL Albumin 3.60 L (3.80-4.90) g/dL Albumin/Globulin Ratio 1.50 L (1.60-3.17) g/dL 08/28/20 Range/Units 12:07 Hgb (11.4-16.0) gm/dL RDW (11.5-15.5) % APTT 56.1 H (22.0-30.0) sec BUN/Creatinine Ratio (12.00-20.00) Ratio Glucose (70-110) mg/dL Total Protein (6.2-8.2) g/dL Albumin (3.80-4.90) g/dL Albumin/Globulin Ratio (1.60-3.17) g/dL Assessment and Plan Assessment: 1 Acute hypoxic respiratory failure secondary to cope 19 pneumonitis 2 History of scleroderma 3 History of Raynaud's syndrome 4 Hypertension 5 Troponin leak, currently on heparin drip Plan: The patient was seen and evaluated by Dr. Ortez Labs reviewed Titrate down the FiO2 as tolerated Continue Remdesivir and dexamethasone Currently on a heparin drip Continue vitamin C, vitamin D, zinc, Pepcid, melatonin. We will continue to follow I, the cosigning physician, performed a history & physical examination of the patient. Lungs sounds with basilar crackles. Maintaining good O2 saturations in the 90s on 11 L high flow nasal cannula. I discussed the assessment and plan of care with my nurse practitioner, Marti Espinoza. I attest to the above note as dictated by her.
[2020-08-28] MEDS: ASCORBIC ACID 500 MG TAB PO SCH (15:56)
[2020-08-28] MEDS: ZINC SULFATE 220 MG CAP PO SCH (15:56)
[2020-08-28] MEDS: REMDESIVIR 100 MG in SODIUM CHLORIDE 0.9% 250 ML IVPB SCH (15:56)
[2020-08-28] MEDS: MELATONIN 5 MG TABLET PO SCH (21:25)
[2020-08-28] MEDS: FAMOTIDINE 20 MG TAB PO SCH (21:25)
[2020-08-28] MEDS: ASPIRIN 81 MG PO SCH (21:25)
[2020-08-29] MEDS: HEPARIN SOD,PORK IN 0.45% NACL 25,000 UNIT in 0.45% NACL 1 250ML.BAG IV SCH ×2 (02:30→23:34)
[2020-08-29 08:21] LABS: Anisocytosis Slight; HCT 33.8 % (34.0-46.0); HGB 10.6 gm/dL (11.4-16.0); Hypochromasia Slight; MCH 26.3 pg (25.0-35.0); MCHC 31.4 g/dL (31.0-37.0); MCV 83.6 fL (80.0-100.0); Platelet Count 376 k/uL (150-450); RBC 4.04 m/uL (3.80-5.40); RDW 16.2 % (11.5-15.5)
[2020-08-29] MEDS: METOPROLOL TARTRATE 12.5 MG TAB PO SCH ×2 (09:46→22:24)
[2020-08-29] MEDS: CHOLECALCIFEROL 1,000 UNIT TAB PO SCH (09:46)
[2020-08-29] MEDS: ASCORBIC ACID 500 MG TAB PO SCH (09:46)
[2020-08-29] MEDS: dexAMETHasone 2 MG TAB PO SCH (09:46)
[2020-08-29] MEDS: FAMOTIDINE 20 MG TAB PO SCH ×2 (09:46→22:23)
[2020-08-29] MEDS: ZINC SULFATE 220 MG CAP PO SCH (09:46)
[2020-08-29] MEDS: NIFEdipine XL 30 MG TAB.ER.24 PO SCH ×2 (09:47→22:24)
[2020-08-29 09:53] LABS: Band Neutrophils % 1 %; Metamyelocytes # (M) 0.13 k/uL (0); Metamyelocytes % 1 %; Monocytes # (M) 0.65 k/uL (0-1.0); Neutrophils % (M) 85 %; Nucleated Red Blood Cells 0 /100 WBC (0-0); Total Cells Counted 200
[2020-08-29 09:55] LABS: African American GFR (CKD) 103.3 (60.0-200.0); Albumin 3.5 g/dL (3.80-4.90); Albumin/Globulin Ratio 1.52 (1.60-3.17); Anion Gap 8.4 mmol/L (4.00-12.00); BUN/Creat Ratio 46.67 Ratio (12.00-20.00); Calcium 8.7 mg/dL (8.7-10.3); Carbon Dioxide 24.6 mmol/L (21.6-31.8); Globulin 2.3 g/dL (1.6-3.3); Non-African American GFR(CKD) 89.2 (60.0-200.0); Poikilocytosis (M) Present; Polychromasia Present; Potassium 4.1 mmol/L (3.5-5.5); Total Bilirubin 0.5 mg/dL (0.2-1.2); Total Protein 5.8 g/dL (6.2-8.2)
[2020-08-29 09:56] LABS: Ovalocytes Present; RBC Fragments Present
--- NOTE | 2020-08-29 16:36 | P.PN ---
Subjective Progress Note Date: 08/29/20 Principal diagnosis: Acute hypoxic respiratory failure related to COVID 19 pneumonitis This is a 74-year-old female with history of multiple medical problems including scleroderma, Raynaud's syndrome, patient was transferred yesterday from [facility] to [facility] with symptoms of shortness of breath, fever, and she was noted to have positive pcr covid 19. Patient was also noted to have elevated troponin level while at [place] [facility]. Patient was started on heparin at [facility] for presumptive non-ST elevation myocardial infarction, CT angiogram done at [place] showed extensive patchy groundglass opacities affecting both lungs. Patient required increase in her FiO2 up to 15 L flow per minute, and I was asked to see her on consultation. I saw this patient in the ER, she is now on 11 L high flow nasal cannula, and her O2 saturation is ranging anywhere between 91-95%. Patient is noted to be in no distress, her symptoms of shortness of breath are about 1 week in urination. After evaluating the patient, we recommended that the patient goes on the Covid 19 cocktail, and we initiated remdesivir. Patient clearly wished DO NOT RESUSC ITATE CODE STATUS, hence we'll arrange for the patient to be transferred to a regular medical floor instead of transferred to the ICU. The patient is seen today 08/28/2020 in follow-up on the regular medical floor. She is currently sitting up in a chair at the bedside. Awake and alert in no acute distress. He states her breathing is a bit easier today compared to yesterday. Still dyspneic with minimal exertion. Still requiring 11 L high flow nasal cannula to maintain O2 saturations in the 90s. She's been afebrile. Hemodynamically stable. White count 9.7. Hemoglobin 11.1. Sodium 138. Potassium 4.5. Creatinine 0.6. This is day 2 of Remdesivir. She remains on dexamethasone, heparin drip for elevated troponin. On 08/29/2020 patient seen in follow-up on the medical surgical floor. She remains on high flow oxygen, per Airvo at 3 L/m, and FiO2 of 65%, and a pulse ox 93-94%, she's been afebrile, hemodynamically stable, does have tremors of breath with exertion, but breathing comfortably at rest, her last chest x-ray was on 08/19/2020 shown extensive pulmonary interstitial pneumonia. Patient continues on oral Decadron, she is on day 3 of Remdesivir treatment. Today's labs have been reviewed, showing white blood cell count of 13, hemoglobin of 10.6, electrolytes were unremarkable, renal profile was unremarkable. Objective - Vital Signs Vital signs: Vital Signs Temp 97.5 F L 08/29/20 14:00 Pulse 51 L 08/29/20 14:00 Resp 19 08/29/20 14:00 BP 113/65 08/29/20 14:00 Pulse Ox 93 L 08/29/20 14:00 Intake & Output 08/28/20 08/29/20 08/29/20 18:59 06:59 18:59 Intake Total 345.076 795.87 Output Total 300 Balance 45.076 795.87 Intake: Intake, IV Titration 105.076 195.87 Amount Heparin Sod,Pork in 0.45% 105.076 195.87 NaCl 25,000 unit In 0.45 % NaCl 1 250ml.bag @ 12 UNITS/KG/HR 9.798 mls/hr IV .Q24H [facility] Rx#: [id number] Oral 240 600 Output: Urine 300 Other: Voiding Method Bedside Commode Bedside Commode Bedside Commode # Voids 1 2 - Exam GENERAL EXAM: Alert, very pleasant, 74-year-old white female, on Airvo at 30 L/m, and FiO2 of 65% comfortable in no apparent distress. HEAD: Normocephalic/atraumatic. EYES: Normal reaction of pupils, equal size. Conjunctiva pink, sclera white. NOSE: Clear with pink turbinates. THROAT: No erythema or exudates. NECK: No masses, no JVD, no thyroid enlargement, no adenopathy. CHEST: No chest wall deformity. Symmetrical expansion. LUNGS: Equal air entry with no crackles, wheeze, rhonchi or dullness. CVS: Regular rate and rhythm, normal S1 and S2, no gallops, no murmurs, no rubs ABDOMEN: Soft, nontender. No hepatosplenomegaly, normal bowel sounds, no guarding or rigidity. EXTREMITIES: No clubbing, no edema, no cyanosis, 2+ pulses and upper and lower extremities. MUSCULOSKELETAL: Muscle strength and tone normal. SPINE: No scoliosis or deformity SKIN: No rashes CENTRAL NERVOUS SYSTEM: Alert and oriented -3. No focal deficits, tone is normal in all 4 extremities. PSYCHIATRIC: Alert and oriented -3. Appropriate affect. Intact judgment and insight. - Labs CBC & Chem 7: 08/29/20 06:24 08/29/20 06:24 Labs: Abnormal Lab Results - Last 24 Hours (Table) 08/29/20 08/29/20 08/29/20 Range/Units 06:24 06:24 06:24 WBC 13.0 H (3.8-10.6) k/uL Hgb 10.6 L (11.4-16.0) gm/dL Hct 33.8 L (34.0-46.0) % RDW 16.2 H (11.5-15.5) % Neutrophils # (Manual) 11.10 H (1.3-7.7) k/uL Metamyelocytes # (Man) 0.13 H (0) k/uL APTT 51.8 H (22.0-30.0) sec BUN 28.0 H (9.0-27.0) mg/dL BUN/Creatinine Ratio 46.67 H (12.00-20.00) Ratio Total Protein 5.8 L (6.2-8.2) g/dL Albumin 3.50 L (3.80-4.90) g/dL Albumin/Globulin Ratio 1.52 L (1.60-3.17) g/dL Assessment and Plan Plan: Assessment: #1. Acute hypoxic respiratory failure secondary to comorbid 19 pneumonitis, started on the Remdesivir on 08/27/2020 #2. History of scleroderma #3. History of Raynaud's syndrome #4. Hypertension #5. Troponin leak, currently on heparin drip, patient was evaluated by cardiology and it was felt that the troponin elevation was related to hypoxia and there was no evidence of acute coronary syndrome Plan: Follow-up chest x-ray in the morning, weaning FiO2, vital signs are stable, patient is on day 3 of Remdesivir, continue Decadron, continue vitamins, and anticoagulation, once heparin is stopped we'll consider switch the patient over to Lovenox, will defer on the decision to discontinue the heparin to cardiology. I performed a history & physical examination of the patient and discussed their management with my nurse practitioner, Teagan Ceron. I reviewed the nurse practitioner's note and agree with the documented findings and plan of care. Lung sounds are positive for diminished breath sounds. The findings and the impression was discussed with the patient. I attest to the documentation by the nurse practitioner. Time with Patient: Less than 30
[2020-08-29] MEDS: traMADol 50 MG TAB PO PRN (16:51)
[2020-08-29] MEDS: REMDESIVIR 100 MG in SODIUM CHLORIDE 0.9% 250 ML IVPB SCH (16:52)
--- NOTE | 2020-08-29 19:40 | P.PN ---
Subjective Progress Note Date: 08/28/20 Claribel Ruiz, is a 74-year-old female patient of Dr. stokes who presented to [facility] with a chief complaint of cough and shortness of breath, patient was transferred from [facility] she had elevated troponin level and positive Covid 19 testing she was evaluated in emergency room she was started on IV heparin [facility] in the relation non-ST elevation myocardial infarction with elevated troponin, patient also had elevated d-dimer at 3.[address] angiogram of the chest that was negative for pulmonary embolism however it was positive for extensive patchy groundglass opacities throughout the lungs. Patient was seen and examined in the emergency room she is alert and oriented 3 in no apparent distress she is maintained on oxygen via nasal cannula at 6 L there is no fever or chills no headache or dizziness she has cough and shortness of breath no chest pain no nausea or vomiting no abdominal pain no diarrhea no blood in the stools no burning with urination no frequency or urgency and no hematuria. On 08/28/2020 patient was seen and examined on the medical floor, she is alert and oriented 3 in no distress she is complaining of cough and shortness of breath she is complaining of generalized weakness otherwise she denies any complaints there is no fever or chills no headache or dizziness no chest pain no palpitation no nausea or vomiting no abdominal pain no diarrhea no blood in the stools no burning with urination no frequency or urgency no hematuria Objective - Vital Signs Vital signs: Vital Signs Temp 97.5 F L 08/28/20 08:00 Pulse 73 08/28/20 08:00 Resp 16 08/28/20 08:00 BP 101/61 08/28/20 08:00 Pulse Ox 96 08/28/20 08:00 Intake & Output 08/27/20 08/28/20 08/28/20 18:59 06:59 18:59 Intake Total 73.485 510.807 50.946 Balance 73.485 510.807 50.946 Weight 78.018 kg Intake: Intake, IV Titration 73.485 210.807 50.946 Amount Heparin Sod,Pork in 0.45% 73.485 210.807 50.946 NaCl 25,000 unit In 0.45 % NaCl 1 250ml.bag @ 12 UNITS/KG/HR 9.798 mls/hr IV .Q24H [facility] Rx#: [id number] Oral 300 Other: Voiding Method Bedside Commode # Voids 1 - Exam In general patient is alert and oriented 3 in no apparent distress HEENT head normocephalic and atraumatic Neck is supple no JVD no goiter no lymphadenopathy Chest exam reveals fine crackles in both lung torres no wheezing Cardiac exam reveals regular heart sounds S1 and S2 no gallops no murmurs Abdomen is soft nontender no organomegaly with normal bowel sounds Extremity exam reveals minimal edema no cyanosis or clubbing Neurological examination reveals no gross focal neurological deficit - Labs CBC & Chem 7: 08/28/20 04:21 08/28/20 04:21 Labs: Abnormal Lab Results - Last 24 Hours (Table) 08/27/20 08/28/20 Range/Units 16:58 04:21 Hgb 11.1 L (11.4-16.0) gm/dL RDW 15.8 H (11.5-15.5) % APTT 45.9 H (22.0-30.0) sec Assessment and Plan Plan: 1. Covid 19 pneumonia pulmonary consultation requested, patient will be started on Decadron and Remdesevir 2. Elevated troponin level, patient was seen by cardiology, it was felt that her troponin elevation is related to hypoxia there was no evidence of acute coronary syndrome 3. Underlying history of scoliosis with chronic back pain 4. Underlying history of Raynaud's syndrome 5. Underlying history of hypertension At this time medication and labs were reviewed Cardiology and pulmonary consultation requested Recheck labs and chest x-ray in a.m. Will follow closely
--- NOTE | 2020-08-29 19:41 | P.PN ---
Subjective Progress Note Date: 08/29/20 Claribel Ruiz, is a 74-year-old female patient of Dr. stokes who presented to [facility] with a chief complaint of cough and shortness of breath, patient was transferred from [facility] she had elevated troponin level and positive Covid 19 testing she was evaluated in emergency room she was started on IV heparin [facility] in the relation non-ST elevation myocardial infarction with elevated troponin, patient also had elevated d-dimer at 3.[address] angiogram of the chest that was negative for pulmonary embolism however it was positive for extensive patchy groundglass opacities throughout the lungs. Patient was seen and examined in the emergency room she is alert and oriented 3 in no apparent distress she is maintained on oxygen via nasal cannula at 6 L there is no fever or chills no headache or dizziness she has cough and shortness of breath no chest pain no nausea or vomiting no abdominal pain no diarrhea no blood in the stools no burning with urination no frequency or urgency and no hematuria. On 08/28/2020 patient was seen and examined on the medical floor, she is alert and oriented 3 in no distress she is complaining of cough and shortness of breath she is complaining of generalized weakness otherwise she denies any complaints there is no fever or chills no headache or dizziness no chest pain no palpitation no nausea or vomiting no abdominal pain no diarrhea no blood in the stools no burning with urination no frequency or urgency no hematuria On 08/29/2020 patient was seen and examined on the medical floor, she is alert and oriented in no distress she is complaining of cough and shortness of breath she is complaining of generalized weakness, she is complaining of hemoorrhoides with pain and discomfort otherwise she denies any complaints there is no fever or chills no headache or dizziness no chest pain no palpitation no nausea or vomiting no abdominal pain no diarrhea no blood in the stools no burning with urination no frequency or urgency no hematuria Objective - Vital Signs Vital signs: Vital Signs Temp 97.4 F L 08/29/20 07:49 Pulse 58 L 08/29/20 07:49 Resp 18 08/29/20 07:49 BP 111/68 08/29/20 07:49 Pulse Ox 94 L 08/29/20 11:40 Intake & Output 08/28/20 08/29/20 08/29/20 18:59 06:59 18:59 Intake Total 345.076 795.87 Output Total 300 Balance 45.076 795.87 Intake: Intake, IV Titration 105.076 195.87 Amount Heparin Sod,Pork in 0.45% 105.076 195.87 NaCl 25,000 unit In 0.45 % NaCl 1 250ml.bag @ 12 UNITS/KG/HR 9.798 mls/hr IV .Q24H [facility] Rx#: [id number] Oral 240 600 Output: Urine 300 Other: Voiding Method Bedside Commode Bedside Commode # Voids 1 2 - Exam In general patient is alert and oriented 3 in no apparent distress HEENT head normocephalic and atraumatic Neck is supple no JVD no goiter no lymphadenopathy Chest exam reveals fine crackles in both lung torres no wheezing Cardiac exam reveals regular heart sounds S1 and S2 no gallops no murmurs Abdomen is soft nontender no organomegaly with normal bowel sounds Extremity exam reveals minimal edema no cyanosis or clubbing Neurological examination reveals no gross focal neurological deficit - Labs CBC & Chem 7: 08/29/20 06:24 08/29/20 06:24 Labs: Abnormal Lab Results - Last 24 Hours (Table) 08/29/20 08/29/20 08/29/20 Range/Units 06:24 06:24 06:24 WBC 13.0 H (3.8-10.6) k/uL Hgb 10.6 L (11.4-16.0) gm/dL Hct 33.8 L (34.0-46.0) % RDW 16.2 H (11.5-15.5) % Neutrophils # (Manual) 11.10 H (1.3-7.7) k/uL Metamyelocytes # (Man) 0.13 H (0) k/uL APTT 51.8 H (22.0-30.0) sec BUN 28.0 H (9.0-27.0) mg/dL BUN/Creatinine Ratio 46.67 H (12.00-20.00) Ratio Total Protein 5.8 L (6.2-8.2) g/dL Albumin 3.50 L (3.80-4.90) g/dL Albumin/Globulin Ratio 1.52 L (1.60-3.17) g/dL Assessment and Plan Plan: 1. Covid 19 pneumonia pulmonary consultation requested, patient will be started on Decadron and Remdesevir 2. Elevated troponin level, patient was seen by cardiology, it was felt that her troponin elevation is related to hypoxia there was no evidence of acute coronary syndrome 3. Underlying history of scoliosis with chronic back pain 4. Underlying history of Raynaud's syndrome 5. Underlying history of hypertension At this time medication and labs were reviewed Cardiology and pulmonary consultation requested Recheck labs and chest x-ray in a.m. Will follow closely
[2020-08-29] MEDS: ASPIRIN 81 MG PO SCH (22:23)
[2020-08-29] MEDS: MELATONIN 5 MG TABLET PO SCH (22:24)
[2020-08-30] MEDS: ZINC SULFATE 220 MG CAP PO SCH (08:47)
[2020-08-30] MEDS: dexAMETHasone 2 MG TAB PO SCH (08:47)
[2020-08-30] MEDS: CHOLECALCIFEROL 1,000 UNIT TAB PO SCH (08:47)
[2020-08-30] MEDS: ASCORBIC ACID 500 MG TAB PO SCH (08:48)
[2020-08-30] MEDS: FAMOTIDINE 20 MG TAB PO SCH ×2 (08:48→20:51)
[2020-08-30] MEDS: NIFEdipine XL 30 MG TAB.ER.24 PO SCH ×2 (08:48→20:52)
[2020-08-30] MEDS: METOPROLOL TARTRATE 12.5 MG TAB PO SCH ×2 (08:48→20:51)
[2020-08-30 08:56] LABS: Anisocytosis Slight; HCT 36.2 % (34.0-46.0); HGB 11.1 gm/dL (11.4-16.0); Hypochromasia Moderate; MCH 25.9 pg (25.0-35.0); MCHC 30.7 g/dL (31.0-37.0); MCV 84.6 fL (80.0-100.0); Mean Platelet Volume 8.6; Platelet Count 417 k/uL (150-450); RBC 4.28 m/uL (3.80-5.40); RDW 16.3 % (11.5-15.5); WBC 15.3 k/uL (3.8-10.6)
[2020-08-30 09:30] LABS: Band Neutrophils % 2 %; Eosinophils # (M) 0.15 k/uL (0-0.7); Lymphocytes # (M) 1.22 k/uL (1.0-4.8); Metamyelocytes # (M) 0.31 k/uL (0); Metamyelocytes % 2 %; Monocytes # (M) 0.46 k/uL (0-1.0); Myelocytes # (M) 0.31 k/uL (0); Myelocytes % 2 %; Neutrophils % (M) 85 %; Nucleated Red Blood Cells 0 /100 WBC (0-0); Total Cells Counted 200
[2020-08-30 09:31] LABS: Ovalocytes Present; Poikilocytosis (M) Present
[2020-08-30 11:35] LABS: African American GFR (CKD) 103.3 (60.0-200.0); Albumin 3.5 g/dL (3.80-4.90); Albumin/Globulin Ratio 1.46 (1.60-3.17); Anion Gap 8.1 mmol/L (4.00-12.00); BUN/Creat Ratio 38.33 Ratio (12.00-20.00); Calcium 8.8 mg/dL (8.7-10.3); Carbon Dioxide 24.9 mmol/L (21.6-31.8); Globulin 2.4 g/dL (1.6-3.3); Non-African American GFR(CKD) 89.2 (60.0-200.0); Potassium 4.1 mmol/L (3.5-5.5); Total Bilirubin 0.5 mg/dL (0.2-1.2); Total Protein 5.9 g/dL (6.2-8.2)
[2020-08-30] MEDS: REMDESIVIR 100 MG in SODIUM CHLORIDE 0.9% 250 ML IVPB SCH (15:56)
--- NOTE | 2020-08-30 17:19 | P.PN ---
Subjective Progress Note Date: 08/30/20 Principal diagnosis: Acute hypoxic respiratory failure related to COVID 19 pneumonitis This is a 74-year-old female with history of multiple medical problems including scleroderma, Raynaud's syndrome, patient was transferred yesterday from [facility] to [facility] with symptoms of shortness of breath, fever, and she was noted to have positive pcr covid 19. Patient was also noted to have elevated troponin level while at [place] [facility]. Patient was started on heparin at [facility] for presumptive non-ST elevation myocardial infarction, CT angiogram done at [place] showed extensive patchy groundglass opacities affecting both lungs. Patient required increase in her FiO2 up to 15 L flow per minute, and I was asked to see her on consultation. I saw this patient in the ER, she is now on 11 L high flow nasal cannula, and her O2 saturation is ranging anywhere between 91-95%. Patient is noted to be in no distress, her symptoms of shortness of breath are about 1 week in urination. After evaluating the patient, we recommended that the patient goes on the Covid 19 cocktail, and we initiated remdesivir. Patient clearly wished DO NOT RESUSC ITATE CODE STATUS, hence we'll arrange for the patient to be transferred to a regular medical floor instead of transferred to the ICU. The patient is seen today 08/28/2020 in follow-up on the regular medical floor. She is currently sitting up in a chair at the bedside. Awake and alert in no acute distress. He states her breathing is a bit easier today compared to yesterday. Still dyspneic with minimal exertion. Still requiring 11 L high flow nasal cannula to maintain O2 saturations in the 90s. She's been afebrile. Hemodynamically stable. White count 9.7. Hemoglobin 11.1. Sodium 138. Potassium 4.5. Creatinine 0.6. This is day 2 of Remdesivir. She remains on dexamethasone, heparin drip for elevated troponin. On 08/29/2020 patient seen in follow-up on the medical surgical floor. She remains on high flow oxygen, per Airvo at 3 L/m, and FiO2 of 65%, and a pulse ox 93-94%, she's been afebrile, hemodynamically stable, does have tremors of breath with exertion, but breathing comfortably at rest, her last chest x-ray was on 08/19/2020 shown extensive pulmonary interstitial pneumonia. Patient continues on oral Decadron, she is on day 3 of Remdesivir treatment. Today's labs have been reviewed, showing white blood cell count of 13, hemoglobin of 10.6, electrolytes were unremarkable, renal profile was unremarkable. On 08/30/2020 patient seen in follow-up on medical surgical floor. She remains on high flow oxygen, currently at 3 L and FiO2 of 66%, her pulse ox of 92%, she is afebrile, hemodynamically she is stable, no worsening dyspnea, she is up in the chair, today is day 4 of Remdesivir treatment, her vital signs have been stable, she continues on heparin infusion she denies any chest pain. Objective - Vital Signs Vital signs: Vital Signs Temp 97.6 F 08/30/20 13:25 Pulse 62 08/30/20 13:25 Resp 20 08/30/20 13:25 BP 117/71 08/30/20 13:25 Pulse Ox 92 L 08/30/20 13:25 Intake & Output 08/29/20 08/30/20 08/30/20 18:59 06:59 18:59 Intake Total 250 1050 Balance 250 1050 Weight 78.925 kg Intake: Intake, IV Titration 250 250 Amount Heparin Sod,Pork in 0.45% 250 NaCl 25,000 unit In 0.45 % NaCl 1 250ml.bag @ 12 UNITS/KG/HR 9.798 mls/hr IV .Q24H [facility] Rx#: [id number] Remdesivir (Eua) 100 mg 250 In Sodium Chloride 0.9% 250 ml @ 250 mls/hr IVPB DAILY@1600 [facility] Rx#: [id number] Oral 800 Other: Voiding Method Bedside Commode Bedside Commode Bedside Commode # Voids 3 1 1 - Exam GENERAL EXAM: Alert, very pleasant, 74-year-old white female, on Airvo at 30 L/m, and FiO2 of 65% comfortable in no apparent distress. HEAD: Normocephalic/atraumatic. EYES: Normal reaction of pupils, equal size. Conjunctiva pink, sclera white. NOSE: Clear with pink turbinates. THROAT: No erythema or exudates. NECK: No masses, no JVD, no thyroid enlargement, no adenopathy. CHEST: No chest wall deformity. Symmetrical expansion. LUNGS: Equal air entry with no crackles, wheeze, rhonchi or dullness. CVS: Regular rate and rhythm, normal S1 and S2, no gallops, no murmurs, no rubs ABDOMEN: Soft, nontender. No hepatosplenomegaly, normal bowel sounds, no guarding or rigidity. EXTREMITIES: No clubbing, no edema, no cyanosis, 2+ pulses and upper and lower extremities. MUSCULOSKELETAL: Muscle strength and tone normal. SPINE: No scoliosis or deformity SKIN: No rashes CENTRAL NERVOUS SYSTEM: Alert and oriented -3. No focal deficits, tone is normal in all 4 extremities. PSYCHIATRIC: Alert and oriented -3. Appropriate affect. Intact judgment and insight. - Labs CBC & Chem 7: 08/30/20 07:19 08/30/20 07:19 Labs: Abnormal Lab Results - Last 24 Hours (Table) 08/30/20 08/30/20 08/30/20 Range/Units 07:19 07:19 07:19 WBC 15.3 H (3.8-10.6) k/uL Hgb 11.1 L (11.4-16.0) gm/dL MCHC 30.7 L (31.0-37.0) g/dL RDW 16.3 H (11.5-15.5) % Neutrophils # (Manual) 13.30 H (1.3-7.7) k/uL Metamyelocytes # (Man) 0.31 H (0) k/uL Myelocytes # (Manual) 0.31 H (0) k/uL APTT 64.8 H (22.0-30.0) sec BUN/Creatinine Ratio 38.33 H (12.00-20.00) Ratio Total Protein 5.9 L (6.2-8.2) g/dL Albumin 3.50 L (3.80-4.90) g/dL Albumin/Globulin Ratio 1.46 L (1.60-3.17) g/dL Assessment and Plan Plan: Assessment: #1. Acute hypoxic respiratory failure secondary to comorbid 19 pneumonitis, started on the Remdesivir on 08/27/2020 #2. History of scleroderma #3. History of Raynaud's syndrome #4. Hypertension #5. Troponin leak, currently on heparin drip, patient was evaluated by cardiology and it was felt that the troponin elevation was related to hypoxia and there was no evidence of acute coronary syndrome Plan: Wean FiO2, continue with Remdesivir treatment, today is day 4 of treatment, no worsening dyspnea, continue oral Decadron, we'll switch the patient to prophylactic dose of Lovenox if the heparin drip can be discontinued per cardiology recommendations. We'll continue to follow I performed a history & physical examination of the patient and discussed their management with my nurse practitioner, Teagan Ceron. I reviewed the nurse practitioner's note and agree with the documented findings and plan of care. Lung sounds are positive for diminished breath sounds. The findings and the impression was discussed with the patient. I attest to the documentation by the nurse practitioner. Time with Patient: Less than 30
--- NOTE | 2020-08-30 17:58 | P.PN ---
Subjective Progress Note Date: 08/30/20 Claribel Ruiz, is a 74-year-old female patient of Dr. stokes who presented to [facility] with a chief complaint of cough and shortness of breath, patient was transferred from [facility] she had elevated troponin level and positive Covid 19 testing she was evaluated in emergency room she was started on IV heparin [facility] in the relation non-ST elevation myocardial infarction with elevated troponin, patient also had elevated d-dimer at 3.[address] angiogram of the chest that was negative for pulmonary embolism however it was positive for extensive patchy groundglass opacities throughout the lungs. Patient was seen and examined in the emergency room she is alert and oriented 3 in no apparent distress she is maintained on oxygen via nasal cannula at 6 L there is no fever or chills no headache or dizziness she has cough and shortness of breath no chest pain no nausea or vomiting no abdominal pain no diarrhea no blood in the stools no burning with urination no frequency or urgency and no hematuria. On 08/28/2020 patient was seen and examined on the medical floor, she is alert and oriented 3 in no distress she is complaining of cough and shortness of breath she is complaining of generalized weakness otherwise she denies any complaints there is no fever or chills no headache or dizziness no chest pain no palpitation no nausea or vomiting no abdominal pain no diarrhea no blood in the stools no burning with urination no frequency or urgency no hematuria On 08/29/2020 patient was seen and examined on the medical floor, she is alert and oriented in no distress she is complaining of cough and shortness of breath she is complaining of generalized weakness, she is complaining of hemoorrhoides with pain and discomfort otherwise she denies any complaints there is no fever or chills no headache or dizziness no chest pain no palpitation no nausea or vomiting no abdominal pain no diarrhea no blood in the stools no burning with urination no frequency or urgency no hematuria On 08/30/2020 patient was seen and examined on the medical floor she is complaining of hemorrhoids with pain and bleeding she is complaining of shortness of breath and cough otherwise she denies any complaints there is no fever or chills no headache or dizziness no nausea or vomiting no abdominal pain no diarrhea no burning with urination no frequency or urgency no hematuria Objective - Vital Signs Vital signs: Vital Signs Temp 98.1 F 08/30/20 08:00 Pulse 55 L 08/30/20 08:00 Resp 20 08/30/20 08:00 BP 120/63 08/30/20 08:00 Pulse Ox 98 08/30/20 08:00 Intake & Output 08/29/20 08/30/20 08/30/20 18:59 06:59 18:59 Intake Total 250 1050 Balance 250 1050 Weight 78.925 kg Intake: Intake, IV Titration 250 250 Amount Heparin Sod,Pork in 0.45% 250 NaCl 25,000 unit In 0.45 % NaCl 1 250ml.bag @ 12 UNITS/KG/HR 9.798 mls/hr IV .Q24H ISAÍAS Rx#: [id number] Remdesivir (Eua) 100 mg 250 In Sodium Chloride 0.9% 250 ml @ 250 mls/hr IVPB DAILY@1600 [facility] Rx#: [id number] Oral 800 Other: Voiding Method Bedside Commode Bedside Commode # Voids 3 1 1 - Exam In general patient is alert and oriented 3 in no apparent distress HEENT head normocephalic and atraumatic Neck is supple no JVD no goiter no lymphadenopathy Chest exam reveals fine crackles in both lung torres no wheezing Cardiac exam reveals regular heart sounds S1 and S2 no gallops no murmurs Abdomen is soft nontender no organomegaly with normal bowel sounds Extremity exam reveals minimal edema no cyanosis or clubbing Neurological examination reveals no gross focal neurological deficit - Labs CBC & Chem 7: 08/30/20 07:19 08/30/20 07:19 Labs: Abnormal Lab Results - Last 24 Hours (Table) 08/30/20 08/30/20 Range/Units 07:19 07:19 WBC 15.3 H (3.8-10.6) k/uL Hgb 11.1 L (11.4-16.0) gm/dL MCHC 30.7 L (31.0-37.0) g/dL RDW 16.3 H (11.5-15.5) % Neutrophils # (Manual) 13.30 H (1.3-7.7) k/uL Metamyelocytes # (Man) 0.31 H (0) k/uL Myelocytes # (Manual) 0.31 H (0) k/uL APTT 64.8 H (22.0-30.0) sec Assessment and Plan Plan: 1. Covid 19 pneumonia pulmonary consultation requested, patient will be started on Decadron and Remdesevir 2. Elevated troponin level, patient was seen by cardiology, it was felt that her troponin elevation is related to hypoxia there was no evidence of acute coronary syndrome 3. Underlying history of scoliosis with chronic back pain 4. Underlying history of Raynaud's syndrome 5. Underlying history of hypertension At this time medication and labs were reviewed Cardiology and pulmonary consultation requested Recheck labs and chest x-ray in a.m. Will follow closely
[2020-08-30] MEDS: ASPIRIN 81 MG PO SCH (20:51)
[2020-08-30] MEDS: traMADol 50 MG TAB PO PRN (20:51)
[2020-08-30] MEDS: MELATONIN 5 MG TABLET PO SCH (20:52)
[2020-08-30] MEDS: HYDROCORTISONE SUPPOSITORY 25 MG SUPP RECTAL SCH (20:53)
[2020-08-30] MEDS: HYDROCORTISONE 2.5% RECTAL CREAM 30 GM TUBE RECTAL SCH (20:53)
[2020-08-31] MEDS: dexAMETHasone 2 MG TAB PO SCH (08:29)
[2020-08-31] MEDS: CHOLECALCIFEROL 1,000 UNIT TAB PO SCH (08:30)
[2020-08-31] MEDS: ASCORBIC ACID 500 MG TAB PO SCH (08:30)
[2020-08-31] MEDS: METOPROLOL TARTRATE 12.5 MG TAB PO SCH ×2 (08:30→22:16)
[2020-08-31] MEDS: HYDROCORTISONE SUPPOSITORY 25 MG SUPP RECTAL SCH ×2 (08:30→22:17)
[2020-08-31] MEDS: FAMOTIDINE 20 MG TAB PO SCH ×2 (08:30→22:16)
[2020-08-31] MEDS: ZINC SULFATE 220 MG CAP PO SCH (08:30)
[2020-08-31] MEDS: NIFEdipine XL 30 MG TAB.ER.24 PO SCH ×2 (08:31→22:16)
[2020-08-31] MEDS: HYDROCORTISONE 2.5% RECTAL CREAM 30 GM TUBE RECTAL SCH ×3 (08:35→22:17)
--- NOTE | 2020-08-31 10:14 | CDI ---
Demand ischemia without MO secondary to hypoxia Documentation Clarification Form Date: 08/31/2020 09:32:36 AM From: Neelima Hickman RN, CCDS Admit Date: 08/27/2020 02:23:00 AM Patient Name: Claribel Ruiz Visit Number: [id number] Discharge Date: ATTENTION: The Clinical Documentation Specialists (CDI) and [facility] Coding Staff appreciate your assistance in clarifying documentation. Please respond to the clarification below the line at the bottom and electronically sign. The CDI & [facility] Coding staff will review the response and follow-up if needed. Please note: Queries are made part of the Legal Health Record. If you have any questions, please contact the author of this message via ITS. Dr. Kelsie Schwartz NSTEMI is documented in the ED clinical impression on 08/27. 08/27 Cardiology consult: The pattern of troponin elevation is not consistent with acute coronary syndrome. Could be related to hypoxia related to pneumonia. For accurate documentation please indicate if the elevated troponin not consistent with acute coronary syndrome may represent. Patient History/Risk Factors: Covid-19 positive, Raunaulds syndrome, varicose veins Clinical Indicators: 74-year-old female transfer with complaints of worsening shortness of breath and cough. EMS arrival her O2 saturation in the 60. and appeared very dusky and short of breath. Vital signs on admission: 127/73 72 23 96 % 15/L nonrebreather 08/27 Troponin 0.054, BNP 5600, 08/27 CT angiography chest: negative for PE 08/27 EKG: normal sinus rhythm with an incomplete right bundle branch block. Ventricular rate is 76. No evidence of ST elevation or depression. 08/27 CXR: extensive patchy groundglass opacities throughout lungs. Pulmonary edema not excluded. Cardiomegaly. Respiratory exam (per pulmonary): Symmetrical chest expansion, minimal fine crackles at the bases, no rhonchi and no wheezes. 08/28 ECHO: Overall left ventricular systolic function is low-normal with, an EF between 50-55 %Mild mitral regurgitation is present. There is mild pulmonary hypertension Treatment: Heparin Drip 250 mls@ 9.798 mls/hr Titrate oxygen to maintain O2 saturation above 90 % Dexamethasone 6 mg po daily Remdesivir 100 mg daily x4 bags For accurate documentation please indicate if the elevated troponin not consistent with acute coronary syndrome represent Type II MO secondary to hypoxia Demand ischemia without MO secondary to hypoxia Unable to determine Other Condition, please specify (Last Revision: September 2019) MTDD
--- NOTE | 2020-08-31 14:59 | P.PN ---
Subjective Progress Note Date: 08/31/20 Principal diagnosis: Acute hypoxic respiratory failure secondary to CoVID 19 pneumonitis This is a 74-year-old female with history of multiple medical problems including scleroderma, Raynaud's syndrome, patient was transferred yesterday from [facility] to [facility] with symptoms of shortness of breath, fever, and she was noted to have positive pcr covid 19. Patient was also noted to have elevated troponin level while at [place] [facility]. Patient was started on heparin at [facility] for presumptive non-ST elevation myocardial infarction, CT angiogram done at [place] showed extensive patchy groundglass opacities affecting both lungs. Patient required increase in her FiO2 up to 15 L flow per minute, and I was asked to see her on consultation. I saw this patient in the ER, she is now on 11 L high flow nasal cannula, and her O2 saturation is ranging anywhere between 91-95%. Patient is noted to be in no distress, her symptoms of shortness of breath are about 1 week in urination. After evaluating the patient, we recommended that the patient goes on the Covid 19 cocktail, and we initiated remdesivir. Patient clearly wished DO NOT RESU SCITATE CODE STATUS, hence we'll arrange for the patient to be transferred to a regular medical floor instead of transferred to the ICU. The patient is seen today 08/28/2020 in follow-up on the regular medical floor. She is currently sitting up in a chair at the bedside. Awake and alert in no ac juno distress. He states her breathing is a bit easier today compared to yesterday. Still dyspneic with minimal exertion. Still requiring 11 L high flow nasal cannula to maintain O2 saturations in the 90s. She's been afebrile. Hemodynamically stable. White count 9.7. Hemoglobin 11.1. Sodium 138. Potassium 4.5. Creatinine 0.6. This is day 2 of Remdesivir. She remains on dexamethasone, heparin drip for elevated troponin. On 08/29/2020 patient seen in follow-up on the medical surgical floor. She remains on high flow oxygen, per Airvo at 3 L/m, and FiO2 of 65%, and a pulse ox 93-94%, she's been afebrile, hemodynamically stable, does have tremors of breath with exertion, but breathing comfortably at rest, her last chest x-ray was on 08/19/2020 shown extensive pulmonary interstitial pneumonia. Patient continues on oral Decadron, she is on day 3 of Remdesivir treatment. Today's labs have been reviewed, showing white blood cell count of 13, hemoglobin of 10.6, electrolytes were unremarkable, renal profile was unremarkable. On 08/30/2020 patient seen in follow-up on medical surgical floor. She remains on high flow oxygen, currently at 3 L and FiO2 of 66%, her pulse ox of 92%, she is afebrile, hemodynamically she is stable, no worsening dyspnea, she is up in the chair, today is day 4 of Remdesivir treatment, her vital signs have been stable, she continues on heparin infusion she denies any chest pain. The patient is seen today 08/31/2020 in follow-up on the regular medical floor. She is currently resting in bed. She remains on the AirVo high flow oxygen device at 25 L and 70% FiO2 to maintain O2 saturations in the 90s. She's been afebrile. This will be day 5 of Remdesivir. Objective - Vital Signs Vital signs: Vital Signs Temp 97.6 F 08/31/20 14:00 Pulse 71 08/31/20 14:00 Resp 17 08/31/20 14:00 BP 122/71 08/31/20 14:00 Pulse Ox 95 08/31/20 14:00 Intake & Output 08/30/20 08/31/20 08/31/20 18:59 06:59 18:59 Intake Total 250 400 Balance 250 400 Weight 76.43 kg Intake: Intake, IV Titration 250 Amount Remdesivir (Eua) 100 mg 250 In Sodium Chloride 0.9% 250 ml @ 250 mls/hr IVPB DAILY@1600 [facility] Rx#: [id number] Oral 400 Other: Voiding Method Bedside Commode Bedside Commode # Voids 6 3 - Exam GENERAL EXAM: Alert, pleasant 74-year-old female patient, on AirVo at 70% FiO2, comfortable in no apparent distress. HEAD: Normocephalic. EYES: Normal reaction of pupils, equal size. NOSE: Clear with pink turbinates. THROAT: No erythema or exudates. NECK: No masses, no JVD. CHEST: No chest wall deformity. LUNGS: Equal air entry with basilar crackles, no wheeze, rhonchi or dullness. CVS: S1 and S2 normal with no audible murmur, regular rhythm. ABDOMEN: No hepatosplenomegaly, normal bowel sounds, no guarding or rigidity. SPINE: No scoliosis or deformity SKIN: No rashes CENTRAL NERVOUS SYSTEM: No focal deficits, tone is normal in all 4 extremities. EXTREMITIES: There is no peripheral edema. No clubbing, no cyanosis. Peripheral pulses are intact. - Labs CBC & Chem 7: 08/30/20 07:19 08/30/20 07:19 Assessment and Plan Assessment: 1 Acute hypoxic respiratory failure secondary to CoVID 19 pneumonitis 2 History of scleroderma 3 History of Raynaud's syndrome 4 Hypertension 5 Troponin leak Plan: The patient was seen and evaluated by Dr. Arredondo Titrate down the FiO2 as tolerated Continue Remdesivir and dexamethasone Heparin drip has been discontinued per cardiology Add Lovenox Continue vitamin C, vitamin D, zinc, Pepcid, melatonin Chest x-ray in a.m. We will continue to follow I, the cosigning physician, performed a history & physical examination of the patient. Lungs sounds with basilar crackles. Maintaining good O2 saturations in the 90s on 70% FiO2 via AirVo. I discussed the assessment and plan of care with my nurse practitioner, Marti Espinoza. I attest to the above note as dictated by her.
[2020-08-31] MEDS: REMDESIVIR 100 MG in SODIUM CHLORIDE 0.9% 250 ML IVPB SCH (16:45)
--- NOTE | 2020-08-31 18:39 | P.PN ---
Subjective Progress Note Date: 08/31/20 Claribel Ruiz, is a 74-year-old female patient of Dr. stkoes who presented to [facility] with a chief complaint of cough and shortness of breath, patient was transferred from [facility] she had elevated troponin level and positive Covid 19 testing she was evaluated in emergency room she was started on IV heparin [facility] in the relation non-ST elevation myocardial infarction with elevated troponin, patient also had elevated d-dimer at 3.[address] angiogram of the chest that was negative for pulmonary embolism however it was positive for extensive patchy groundglass opacities throughout the lungs. Patient was seen and examined in the emergency room she is alert and oriented 3 in no apparent distress she is maintained on oxygen via nasal cannula at 6 L there is no fever or chills no headache or dizziness she has cough and shortness of breath no chest pain no nausea or vomiting no abdominal pain no diarrhea no blood in the stools no burning with urination no frequency or urgency and no hematuria. On 08/28/2020 patient was seen and examined on the medical floor, she is alert and oriented 3 in no distress she is complaining of cough and shortness of breath she is complaining of generalized weakness otherwise she denies any complaints there is no fever or chills no headache or dizziness no chest pain no palpitation no nausea or vomiting no abdominal pain no diarrhea no blood in the stools no burning with urination no frequency or urgency no hematuria On 08/29/2020 patient was seen and examined on the medical floor, she is alert and oriented in no distress she is complaining of cough and shortness of breath she is complaining of generalized weakness, she is complaining of hemoorrhoides with pain and discomfort otherwise she denies any complaints there is no fever or chills no headache or dizziness no chest pain no palpitation no nausea or vomiting no abdominal pain no diarrhea no blood in the stools no burning with urination no frequency or urgency no hematuria On 08/30/2020 patient was seen and examined on the medical floor she is complaining of hemorrhoids with pain and bleeding she is complaining of shortness of breath and cough otherwise she denies any complaints there is no fever or chills no headache or dizziness no nausea or vomiting no abdominal pain no diarrhea no burning with urination no frequency or urgency no hematuria On 08/31/2020 patient was seen and examined on the medical floor she is still complaining of shortness of breath, cough and generalized weakness she is maintained on high flow oxygen otherwise she denies any complaints at this time there is no fever or chills no headache or dizziness no chest pain no nausea or vomiting no abdominal pain no diarrhea no blood in the stools no burning with urination no frequency or urgency and no hematuria Objective - Vital Signs Vital signs: Vital Signs Temp 97.6 F 08/31/20 14:00 Pulse 71 08/31/20 14:00 Resp 17 08/31/20 14:00 BP 122/71 08/31/20 14:00 Pulse Ox 95 08/31/20 14:00 Intake & Output 08/30/20 08/31/20 08/31/20 18:59 06:59 18:59 Intake Total 250 400 Balance 250 400 Weight 76.43 kg Intake: Intake, IV Titration 250 Amount Remdesivir (Eua) 100 mg 250 In Sodium Chloride 0.9% 250 ml @ 250 mls/hr IVPB DAILY@1600 [facility] Rx#: [id number] Oral 400 Other: Voiding Method Bedside Commode Bedside Commode # Voids 6 3 - Exam In general patient is alert and oriented 3 in no apparent distress HEENT head normocephalic and atraumatic Neck is supple no JVD no goiter no lymphadenopathy Chest exam reveals fine crackles in both lung torres no wheezing Cardiac exam reveals regular heart sounds S1 and S2 no gallops no murmurs Abdomen is soft nontender no organomegaly with normal bowel sounds Extremity exam reveals minimal edema no cyanosis or clubbing Neurological examination reveals no gross focal neurological deficit - Labs CBC & Chem 7: 08/30/20 07:19 08/30/20 07:19 Assessment and Plan Plan: 1. Covid 19 pneumonia pulmonary consultation requested, patient will be started on Decadron and Remdesevir 2. Elevated troponin level, patient was seen by cardiology, it was felt that her troponin elevation is related to hypoxia there was no evidence of acute coronary syndrome 3. Underlying history of scoliosis with chronic back pain 4. Underlying history of Raynaud's syndrome 5. Underlying history of hypertension At this time medication and labs were reviewed Cardiology and pulmonary consultation requested Recheck labs and chest x-ray in a.m. Will follow closely
[2020-08-31] MEDS: ASPIRIN 81 MG PO SCH (22:16)
[2020-08-31] MEDS: MELATONIN 5 MG TABLET PO SCH (22:16)
--- NOTE | 2020-09-01 08:06 | XR ---
EXAMINATION TYPE: XR chest 1V portable DATE OF EXAM: 09/01/2020 Comparison: 08/27/2020 Clinical History: 74-year-old female CoVID pneumonitis Findings: Heart upper limits of normal in size. Aorta within normal limits. Confluent groundglass airspace dise ase mid and lower lungs with slight improvement in aeration in the upper lungs. Impression: Confluent groundglass infiltrates persist with some improvement in aeration in the upper lungs.
[2020-09-01] MEDS: ZINC SULFATE 220 MG CAP PO SCH (09:38)
[2020-09-01] MEDS: NIFEdipine XL 30 MG TAB.ER.24 PO SCH ×2 (09:38→21:21)
[2020-09-01] MEDS: ASCORBIC ACID 500 MG TAB PO SCH (09:38)
[2020-09-01] MEDS: METOPROLOL TARTRATE 12.5 MG TAB PO SCH ×2 (09:39→21:21)
[2020-09-01] MEDS: CHOLECALCIFEROL 1,000 UNIT TAB PO SCH (09:39)
[2020-09-01] MEDS: dexAMETHasone 2 MG TAB PO SCH (09:39)
[2020-09-01] MEDS: HYDROCORTISONE SUPPOSITORY 25 MG SUPP RECTAL SCH ×2 (09:39→20:56)
[2020-09-01] MEDS: FAMOTIDINE 20 MG TAB PO SCH ×2 (09:39→20:56)
[2020-09-01] MEDS: ENOXAPARIN 40 MG/0.4 ML SYRINGE SQ SCH (10:36)
--- NOTE | 2020-09-01 14:53 | P.PN ---
Subjective Progress Note Date: 09/01/20 Principal diagnosis: Acute hypoxic respiratory failure secondary to CoVID 19 pneumonitis This is a 74-year-old female with history of multiple medical problems including scleroderma, Raynaud's syndrome, patient was transferred yesterday from [facility] to [facility] with symptoms of shortness of breath, fever, and she was noted to have positive pcr covid 19. Patient was also noted to have elevated troponin level while at [place] [facility]. Patient was started on heparin at [facility] for presumptive non-ST elevation myocardial infarction, CT angiogram done at [place] showed extensive patchy groundglass opacities affecting both lungs. Patient required increase in her FiO2 up to 15 L flow per minute, and I was asked to see her on consultation. I saw this patient in the ER, she is now on 11 L high flow nasal cannula, and her O2 saturation is ranging anywhere between 91-95%. Patient is noted to be in no distress, her symptoms of shortness of breath are about 1 week in urination. After evaluating the patient, we recommended that the patient goes on the Covid 19 cocktail, and we initiated remdesivir. Patient clearly wished DO NOT RESU SCITATE CODE STATUS, hence we'll arrange for the patient to be transferred to a regular medical floor instead of transferred to the ICU. The patient is seen today 08/28/2020 in follow-up on the regular medical floor. She is currently sitting up in a chair at the bedside. Awake and alert in no ac juno distress. He states her breathing is a bit easier today compared to yesterday. Still dyspneic with minimal exertion. Still requiring 11 L high flow nasal cannula to maintain O2 saturations in the 90s. She's been afebrile. Hemodynamically stable. White count 9.7. Hemoglobin 11.1. Sodium 138. Potassium 4.5. Creatinine 0.6. This is day 2 of Remdesivir. She remains on dexamethasone, heparin drip for elevated troponin. On 08/29/2020 patient seen in follow-up on the medical surgical floor. She remains on high flow oxygen, per Airvo at 3 L/m, and FiO2 of 65%, and a pulse ox 93-94%, she's been afebrile, hemodynamically stable, does have tremors of breath with exertion, but breathing comfortably at rest, her last chest x-ray was on 08/19/2020 shown extensive pulmonary interstitial pneumonia. Patient continues on oral Decadron, she is on day 3 of Remdesivir treatment. Today's labs have been reviewed, showing white blood cell count of 13, hemoglobin of 10.6, electrolytes were unremarkable, renal profile was unremarkable. On 08/30/2020 patient seen in follow-up on medical surgical floor. She remains on high flow oxygen, currently at 3 L and FiO2 of 66%, her pulse ox of 92%, she is afebrile, hemodynamically she is stable, no worsening dyspnea, she is up in the chair, today is day 4 of Remdesivir treatment, her vital signs have been stable, she continues on heparin infusion she denies any chest pain. The patient is seen today 08/31/2020 in follow-up on the regular medical floor. She is currently resting in bed. She remains on the AirVo high flow oxygen device at 25 L and 70% FiO2 to maintain O2 saturations in the 90s. She's been afebrile. This will be day 5 of Remdesivir. The patient is seen today 09/01/2020 in follow-up on the regular medical floor. She is currently sitting up in a chair at the bedside. She is awake and alert. She is still quite dyspneic with minimal exertion. Chest x-ray continues to show bilateral infiltrates. She has completed her Remdesivir. She is still requiring AirVo at 25 L and 68% FiO2 to maintain O2 saturations in the 90s. Sputum culture pending. Blood culture reveals no growth. D-dimer 0.69. She remains on IV Solu-Medrol, bronchodilators, Lovenox, vitamin supplements. Objective - Vital Signs Vital signs: Vital Signs Temp 97.6 F 09/01/20 10:15 Pulse 70 09/01/20 10:15 Resp 18 09/01/20 10:15 BP 140/76 09/01/20 10:15 Pulse Ox 91 L 09/01/20 10:15 Intake & Output 08/31/20 09/01/20 09/01/20 18:59 06:59 18:59 Intake Total 250 Balance 250 Weight 79.5 kg 79.5 kg Intake: Intake, IV Titration 250 Amount Remdesivir 100 mg In 250 Sodium Chloride 0.9% 250 ml @ 250 mls/hr IVPB DAILY@1600 [facility] Rx#: [id number] Other: Voiding Method Bedside Commode Bedside Commode Bedside Commode Diaper Bedpan Incontinent # Voids 3 1 - Exam GENERAL EXAM: Alert, pleasant 74-year-old female patient, on AirVo at 68% FiO2, comfortable in no apparent distress. HEAD: Normocephalic. EYES: Normal reaction of pupils, equal size. NOSE: Clear with pink turbinates. THROAT: No erythema or exudates. NECK: No masses, no JVD. CHEST: No chest wall deformity. LUNGS: Equal air entry with basilar crackles, no wheeze, rhonchi or dullness. CVS: S1 and S2 normal with no audible murmur, regular rhythm. ABDOMEN: No hepatosplenomegaly, normal bowel sounds, no guarding or rigidity. SPINE: No scoliosis or deformity SKIN: No rashes CENTRAL NERVOUS SYSTEM: No focal deficits, tone is normal in all 4 extremities. EXTREMITIES: There is no peripheral edema. No clubbing, no cyanosis. Peripheral pulses are intact. - Labs CBC & Chem 7: 08/30/20 07:19 08/30/20 07:19 Labs: Abnormal Lab Results - Last 24 Hours (Table) 09/01/20 Range/Units 08:07 D-Dimer 17.45 H (<0.60) mg/L FEU Assessment and Plan Assessment: 1 Acute hypoxic respiratory failure secondary to CoVID 19 pneumonitis 2 History of scleroderma 3 History of Raynaud's syndrome 4 Hypertension 5 Troponin leak Plan: The patient was seen and evaluated by Dr. Arredondo Chest x-ray and labs reviewed Titrate down the FiO2 as tolerated Completed Remdesivir Remains on Lovenox and IV Solu-Medrol Continue vitamin C, vitamin D, zinc, Pepcid, melatonin We will continue to follow I, the cosigning physician, performed a history & physical examination of the patient. Lungs sounds with basilar crackles. Maintaining good O2 saturations in the 90s on 68% FiO2 via AirVo. I discussed the assessment and plan of care with my nurse practitioner, Marti Espinoza. I attest to the above note as dictated by her.
[2020-09-01] MEDS: HYDROCORTISONE 2.5% RECTAL CREAM 30 GM TUBE RECTAL SCH ×3 (16:46→21:21)
--- NOTE | 2020-09-01 18:47 | P.PN ---
Subjective Progress Note Date: 09/01/20 Claribel Ruiz, is a 74-year-old female patient of Dr. stokes who presented to [facility] with a chief complaint of cough and shortness of breath, patient was transferred from [facility] she had elevated troponin level and positive Covid 19 testing she was evaluated in emergency room she was started on IV heparin [facility] in the relation non-ST elevation myocardial infarction with elevated troponin, patient also had elevated d-dimer at 3.[address] angiogram of the chest that was negative for pulmonary embolism however it was positive for extensive patchy groundglass opacities throughout the lungs. Patient was seen and examined in the emergency room she is alert and oriented 3 in no apparent distress she is maintained on oxygen via nasal cannula at 6 L there is no fever or chills no headache or dizziness she has cough and shortness of breath no chest pain no nausea or vomiting no abdominal pain no diarrhea no blood in the stools no burning with urination no frequency or urgency and no hematuria. On 08/28/2020 patient was seen and examined on the medical floor, she is alert and oriented 3 in no distress she is complaining of cough and shortness of breath she is complaining of generalized weakness otherwise she denies any complaints there is no fever or chills no headache or dizziness no chest pain no palpitation no nausea or vomiting no abdominal pain no diarrhea no blood in the stools no burning with urination no frequency or urgency no hematuria On 08/29/2020 patient was seen and examined on the medical floor, she is alert and oriented in no distress she is complaining of cough and shortness of breath she is complaining of generalized weakness, she is complaining of hemoorrhoides with pain and discomfort otherwise she denies any complaints there is no fever or chills no headache or dizziness no chest pain no palpitation no nausea or vomiting no abdominal pain no diarrhea no blood in the stools no burning with urination no frequency or urgency no hematuria On 08/30/2020 patient was seen and examined on the medical floor she is complaining of hemorrhoids with pain and bleeding she is complaining of shortness of breath and cough otherwise she denies any complaints there is no fever or chills no headache or dizziness no nausea or vomiting no abdominal pain no diarrhea no burning with urination no frequency or urgency no hematuria On 08/31/2020 patient was seen and examined on the medical floor she is still complaining of shortness of breath, cough and generalized weakness she is maintained on high flow oxygen otherwise she denies any complaints at this time there is no fever or chills no headache or dizziness no chest pain no nausea or vomiting no abdominal pain no diarrhea no blood in the stools no burning with urination no frequency or urgency and no hematuria On 09/01/2020 patient was seen and examined on the medical floor she is alert and oriented 3 she is still complaining of significant shortness of breath otherwise she denies any complaints she stated that she is having some pain in her legs and is requesting gabapentin 200 mg twice a day she stated that she was on that at home prior to admission although it was not listed on her home medication list. Otherwise patient denies any complaints there is no fever or chills no headache or dizziness no chest pain no nausea or vomiting no abdominal pain no diarrhea no blood in the stools no burning with urination no frequency or urgency and no hematuria Objective - Vital Signs Vital signs: Vital Signs Temp 98 F 09/01/20 05:41 Pulse 75 09/01/20 05:41 Resp 18 09/01/20 05:41 BP 142/88 09/01/20 05:41 Pulse Ox 93 L 09/01/20 05:41 Intake & Output 08/31/20 09/01/20 09/01/20 18:59 06:59 18:59 Intake Total 250 Balance 250 Weight 79.5 kg Intake: Intake, IV Titration 250 Amount Remdesivir 100 mg In 250 Sodium Chloride 0.9% 250 ml @ 250 mls/hr IVPB DAILY@1600 [facility] Rx#: [id number] Other: Voiding Method Bedside Commode Bedside Commode Diaper # Voids 3 - Exam In general patient is alert and oriented 3 in no apparent distress HEENT head normocephalic and atraumatic Neck is supple no JVD no goiter no lymphadenopathy Chest exam reveals fine crackles in both lung torres no wheezing Cardiac exam reveals regular heart sounds S1 and S2 no gallops no murmurs Abdomen is soft nontender no organomegaly with normal bowel sounds Extremity exam reveals minimal edema no cyanosis or clubbing Neurological examination reveals no gross focal neurological deficit - Labs CBC & Chem 7: 08/30/20 07:19 08/30/20 07:19 Assessment and Plan Plan: 1. Covid 19 pneumonia pulmonary consultation requested, patient will be started on Decadron and Remdesevir 2. Elevated troponin level, patient was seen by cardiology, it was felt that her troponin elevation is related to hypoxia there was no evidence of acute coronary syndrome 3. Underlying history of scoliosis with chronic back pain 4. Underlying history of Raynaud's syndrome 5. Underlying history of hypertension At this time medication and labs were reviewed Cardiology and pulmonary consultation requested Recheck labs and chest x-ray in a.m. Will follow closely
[2020-09-01] MEDS: GABAPENTIN 100 MG CAP PO SCH (20:56)
[2020-09-01] MEDS: MELATONIN 5 MG TABLET PO SCH (20:56)
[2020-09-01] MEDS: ASPIRIN 81 MG PO SCH (20:56)
[2020-09-02] MEDS: traMADol 50 MG TAB PO PRN (06:12)
[2020-09-02 08:21] LABS: Anisocytosis Slight; Basophils % (A) 0 %; Eosinophils % (A) 0 %; HCT 38.4 % (34.0-46.0); HGB 12.1 gm/dL (11.4-16.0); Hypochromasia Slight; Lymphocytes # (A) 0.8 k/uL (1.0-4.8); Lymphocytes % (A) 5 %; MCH 26.5 pg (25.0-35.0); MCHC 31.6 g/dL (31.0-37.0); MCV 83.9 fL (80.0-100.0); Mean Platelet Volume 8.6; Monocytes # (A) 0.6 k/uL (0-1.0); Monocytes % (A) 3 %; Neutrophils # (A) 17.1 k/uL (1.3-7.7); Neutrophils % (A) 91 %; Platelet Count 275 k/uL (150-450); RBC 4.57 m/uL (3.80-5.40); RDW 17.4 % (11.5-15.5); WBC 18.7 k/uL (3.8-10.6)
[2020-09-02] MEDS: ENOXAPARIN 40 MG/0.4 ML SYRINGE SQ SCH (09:18)
[2020-09-02] MEDS: CHOLECALCIFEROL 1,000 UNIT TAB PO SCH (09:19)
[2020-09-02] MEDS: FAMOTIDINE 20 MG TAB PO SCH ×2 (09:19→21:56)
[2020-09-02] MEDS: ZINC SULFATE 220 MG CAP PO SCH (09:19)
[2020-09-02] MEDS: NIFEdipine XL 30 MG TAB.ER.24 PO SCH ×2 (09:19→21:57)
[2020-09-02] MEDS: METOPROLOL TARTRATE 12.5 MG TAB PO SCH ×2 (09:19→21:57)
[2020-09-02] MEDS: GABAPENTIN 100 MG CAP PO SCH ×2 (09:19→21:55)
[2020-09-02] MEDS: dexAMETHasone 2 MG TAB PO SCH (09:19)
[2020-09-02] MEDS: ASCORBIC ACID 500 MG TAB PO SCH (09:19)
[2020-09-02] MEDS: HYDROCORTISONE SUPPOSITORY 25 MG SUPP RECTAL SCH ×2 (09:20→21:58)
[2020-09-02] MEDS: HYDROCORTISONE 2.5% RECTAL CREAM 30 GM TUBE RECTAL SCH ×3 (09:21→21:57)
[2020-09-02 12:40] LABS: African American GFR (CKD) 103.3 (60.0-200.0); Albumin 3.5 g/dL (3.80-4.90); Albumin/Globulin Ratio 1.4 (1.60-3.17); Anion Gap 13.4 mmol/L (4.00-12.00); BUN/Creat Ratio 36.67 Ratio (12.00-20.00); Carbon Dioxide 21.6 mmol/L (21.6-31.8); Globulin 2.5 g/dL (1.6-3.3); Non-African American GFR(CKD) 89.2 (60.0-200.0); Potassium 4.3 mmol/L (3.5-5.5)
[2020-09-02] MEDS: methylPREDNISolone SOD SUCCI 125 MG/2 ML VIAL IV SCH ×2 (13:10→17:18)
--- NOTE | 2020-09-02 14:47 | P.PN ---
Subjective Progress Note Date: 09/02/20 Principal diagnosis: Acute hypoxic respiratory failure secondary to CoVID 19 pneumonitis This is a 74-year-old female with history of multiple medical problems including scleroderma, Raynaud's syndrome, patient was transferred yesterday from [facility] to [facility] with symptoms of shortness of breath, fever, and she was noted to have positive pcr covid 19. Patient was also noted to have elevated troponin level while at [facility]. Patient was started on heparin at [facility] for presumptive non-ST elevation myocardial infarction, CT angiogram done at [facility] showed extensive patchy groundglass opacities affecting both lungs. Patient required increase in her FiO2 up to 15 L flow per minute, and I was asked to see her on consultation. I saw this patient in the ER, she is now on 11 L high flow nasal cannula, and her O2 saturation is ranging anywhere between 91-95%. Patient is noted to be in no distress, her symptoms of shortness of breath are about 1 week in urination. After evaluating the patient, we recommended that the patient goes on the Covid 19 cocktail, and we initiated remdesivir. Patient clearly wished DO NOT RESU SCITATE CODE STATUS, hence we'll arrange for the patient to be transferred to a regular medical floor instead of transferred to the ICU. The patient is seen today 08/28/2020 in follow-up on the regular medical floor. She is currently sitting up in a chair at the bedside. Awake and alert in no ac juno distress. He states her breathing is a bit easier today compared to yesterday. Still dyspneic with minimal exertion. Still requiring 11 L high flow nasal cannula to maintain O2 saturations in the 90s. She's been afebrile. Hemodynamically stable. White count 9.7. Hemoglobin 11.1. Sodium 138. Potassium 4.5. Creatinine 0.6. This is day 2 of Remdesivir. She remains on dexamethasone, heparin drip for elevated troponin. On 08/29/2020 patient seen in follow-up on the medical surgical floor. She remains on high flow oxygen, per Airvo at 3 L/m, and FiO2 of 65%, and a pulse ox 93-94%, she's been afebrile, hemodynamically stable, does have tremors of breath with exertion, but breathing comfortably at rest, her last chest x-ray was on 08/19/2020 shown extensive pulmonary interstitial pneumonia. Patient continues on oral Decadron, she is on day 3 of Remdesivir treatment. Today's labs have been reviewed, showing white blood cell count of 13, hemoglobin of 10.6, electrolytes were unremarkable, renal profile was unremarkable. On 08/30/2020 patient seen in follow-up on medical surgical floor. She remains on high flow oxygen, currently at 3 L and FiO2 of 66%, her pulse ox of 92%, she is afebrile, hemodynamically she is stable, no worsening dyspnea, she is up in the chair, today is day 4 of Remdesivir treatment, her vital signs have been stable, she continues on heparin infusion she denies any chest pain. The patient is seen today 08/31/2020 in follow-up on the regular medical floor. She is currently resting in bed. She remains on the AirVo high flow oxygen device at 25 L and 70% FiO2 to maintain O2 saturations in the 90s. She's been afebrile. This will be day 5 of Remdesivir. The patient is seen today 09/01/2020 in follow-up on the regular medical floor. She is currently sitting up in a chair at the bedside. She is awake and alert. She is still quite dyspneic with minimal exertion. Chest x-ray continues to show bilateral infiltrates. She has completed her Remdesivir. She is still requiring AirVo at 25 L and 68% FiO2 to maintain O2 saturations in the 90s. Sputum culture pending. Blood culture reveals no growth. D-dimer 0.69. She remains on IV Solu-Medrol, bronchodilators, Lovenox, vitamin supplements. The patient is seen today 09/02/2020 in follow-up on the regular medical floor. She is awake and alert. She is dyspneic with minimal exertion. Dyspneic with conversation. She remains on AirVo high flow oxygen at 50 L and 90% FiO2. W brandon count 18.7. Hemoglobin 12.1. Sodium 139. Potassium 4.3. Creatinine 0.6. She remains on dexamethasone, bronchodilators, Lovenox, vitamin supplements. Chest x-ray revealed confluent groundglass infiltrates with some improvement in aeration of the upper lobes. Sitters at the bedside to assure the patient keeps her oxygen on. Objective - Vital Signs Vital signs: Vital Signs Temp 97.6 F 09/02/20 11:00 Pulse 83 09/02/20 11:00 Resp 24 09/02/20 11:00 BP 108/64 09/02/20 11:00 Pulse Ox 98 09/02/20 11:00 Intake & Output 09/01/20 09/02/20 09/02/20 18:59 06:59 18:59 Intake Total 300 Output Total 1 Balance -1 300 Weight 79.5 kg Intake: Oral 300 Output: Urine 1 Other: Voiding Method Bedside Commode Bedside Commode Bedside Commode Bedpan Bedpan Bedpan Incontinent Diaper Diaper Incontinent Incontinent # Voids 4 1 - Exam GENERAL EXAM: Alert, pleasant 74-year-old female patient, on AirVo at 90% FiO2, comfortable in no apparent distress. HEAD: Normocephalic. EYES: Normal reaction of pupils, equal size. NOSE: Clear with pink turbinates. THROAT: No erythema or exudates. NECK: No masses, no JVD. CHEST: No chest wall deformity. LUNGS: Equal air entry with basilar crackles, few scattered rhonchi, diminished CVS: S1 and S2 normal with no audible murmur, regular rhythm. ABDOMEN: No hepatosplenomegaly, normal bowel sounds, no guarding or rigidity. SPINE: No scoliosis or deformity SKIN: No rashes CENTRAL NERVOUS SYSTEM: No focal deficits, tone is normal in all 4 extremities. EXTREMITIES: There is no peripheral edema. No clubbing, no cyanosis. Peripheral pulses are intact. - Labs CBC & Chem 7: 09/02/20 07:12 09/02/20 07:12 Labs: Abnormal Lab Results - Last 24 Hours (Table) 09/02/20 09/02/20 Range/Units 07:12 07:12 WBC 18.7 H (3.8-10.6) k/uL RDW 17.4 H (11.5-15.5) % Neutrophils # 17.1 H (1.3-7.7) k/uL Lymphocytes # 0.8 L (1.0-4.8) k/uL Anion Gap 13.40 H (4.00-12.00) mmol/L BUN/Creatinine Ratio 36.67 H (12.00-20.00) Ratio Total Protein 6.0 L (6.2-8.2) g/dL Albumin 3.50 L (3.80-4.90) g/dL Albumin/Globulin Ratio 1.40 L (1.60-3.17) g/dL Assessment and Plan Assessment: 1 Acute hypoxic respiratory failure secondary to CoVID 19 pneumonitis, requiring AirVo high flow oxygen at 50 L 90% FiO2, completed Remdesivir 2 History of scleroderma 3 History of Raynaud's syndrome 4 Hypertension 5 Troponin leak Plan: The patient was seen and evaluated by Dr. Arredondo She has required more oxygen supplementation Sitter at the bedside to assure she continues to Wear the Oxygen Discontinue dexamethasone, and IV Solu-Medrol 60 every 6 Increase Lovenox to 80 mg subcutaneous twice a day Completed Remdesivir Continue vitamin C, vitamin D, zinc, Pepcid, melatonin We will continue to follow Prognosis is guarded I, the cosigning physician, performed a history & physical examination of the patient. Lungs sounds with basilar crackles, scattered rhonchi, diminished. Maintaining good O2 saturations in the 90s on 90% FiO2 via AirVo. I discussed the assessment and plan of care with my nurse practitioner, Marti Espinoza. I attest to the above note as dictated by her.
--- NOTE | 2020-09-02 15:34 | P.PN ---
Subjective Progress Note Date: 09/02/20 Claribel Ruiz, is a 74-year-old female patient of Dr. stokes who presented to [facility] with a chief complaint of cough and shortness of breath, patient was transferred from [facility] she had elevated troponin level and positive Covid 19 testing she was evaluated in emergency room she was started on IV heparin [facility] in the relation non-ST elevation myocardial infarction with elevated troponin, patient also had elevated d-dimer at 3.[address] angiogram of the chest that was negative for pulmonary embolism however it was positive for extensive patchy groundglass opacities throughout the lungs. Patient was seen and examined in the emergency room she is alert and oriented 3 in no apparent distress she is maintained on oxygen via nasal cannula at 6 L there is no fever or chills no headache or dizziness she has cough and shortness of breath no chest pain no nausea or vomiting no abdominal pain no diarrhea no blood in the stools no burning with urination no frequency or urgency and no hematuria. On 08/28/2020 patient was seen and examined on the medical floor, she is alert and oriented 3 in no distress she is complaining of cough and shortness of breath she is complaining of generalized weakness otherwise she denies any complaints there is no fever or chills no headache or dizziness no chest pain no palpitation no nausea or vomiting no abdominal pain no diarrhea no blood in the stools no burning with urination no frequency or urgency no hematuria On 08/29/2020 patient was seen and examined on the medical floor, she is alert and oriented in no distress she is complaining of cough and shortness of breath she is complaining of generalized weakness, she is complaining of hemoorrhoides with pain and discomfort otherwise she denies any complaints there is no fever or chills no headache or dizziness no chest pain no palpitation no nausea or vomiting no abdominal pain no diarrhea no blood in the stools no burning with urination no frequency or urgency no hematuria On 08/30/2020 patient was seen and examined on the medical floor she is complaining of hemorrhoids with pain and bleeding she is complaining of shortness of breath and cough otherwise she denies any complaints there is no fever or chills no headache or dizziness no nausea or vomiting no abdominal pain no diarrhea no burning with urination no frequency or urgency no hematuria On 08/31/2020 patient was seen and examined on the medical floor she is still complaining of shortness of breath, cough and generalized weakness she is maintained on high flow oxygen otherwise she denies any complaints at this time there is no fever or chills no headache or dizziness no chest pain no nausea or vomiting no abdominal pain no diarrhea no blood in the stools no burning with urination no frequency or urgency and no hematuria On 09/01/2020 patient was seen and examined on the medical floor she is alert and oriented 3 she is still complaining of significant shortness of breath otherwise she denies any complaints she stated that she is having some pain in her legs and is requesting gabapentin 200 mg twice a day she stated that she was on that at home prior to admission although it was not listed on her home medication list. Otherwise patient denies any complaints there is no fever or chills no headache or dizziness no chest pain no nausea or vomiting no abdominal pain no diarrhea no blood in the stools no burning with urination no frequency or urgency and no hematuria. On 09/02/2020 patient was seen and examined on the medical floor, she is somnolant, responsive she is still complaining of generalized weakness shortness of breath fatigue and cough, she has poor oral intake, at this time, patient remains full code per her request, we will place a midline and start on TPN, consultation for infectious disease was initiated, condition is poor, prognosis is guarded Objective - Vital Signs Vital signs: Vital Signs Temp 98.1 F 09/02/20 04:32 Pulse 50 L 09/02/20 04:32 Resp 17 09/02/20 04:32 BP 144/70 09/02/20 04:32 Pulse Ox 98 09/02/20 09:12 Intake & Output 09/01/20 09/02/20 09/02/20 18:59 06:59 18:59 Intake Total 300 Output Total 1 Balance -1 300 Weight 79.5 kg Intake: Oral 300 Output: Urine 1 Other: Voiding Method Bedside Commode Bedside Commode Bedpan Bedpan Incontinent Diaper Incontinent # Voids 4 1 - Exam In general patient is alert and oriented 3 in no apparent distress HEENT head normocephalic and atraumatic Neck is supple no JVD no goiter no lymphadenopathy Chest exam reveals fine crackles in both lung torres no wheezing Cardiac exam reveals regular heart sounds S1 and S2 no gallops no murmurs Abdomen is soft nontender no organomegaly with normal bowel sounds Extremity exam reveals minimal edema no cyanosis or clubbing Neurological examination reveals no gross focal neurological deficit - Labs CBC & Chem 7: 09/02/20 07:12 09/02/20 07:12 Labs: Abnormal Lab Results - Last 24 Hours (Table) 09/02/20 Range/Units 07:12 WBC 18.7 H (3.8-10.6) k/uL RDW 17.4 H (11.5-15.5) % Neutrophils # 17.1 H (1.3-7.7) k/uL Lymphocytes # 0.8 L (1.0-4.8) k/uL Assessment and Plan Plan: 1. Covid 19 pneumonia pulmonary consultation requested, patient will be started on Decadron and Remdesevir 2. Elevated troponin level, patient was seen by cardiology, it was felt that her troponin elevation is related to hypoxia there was no evidence of acute coronary syndrome 3. Underlying history of scoliosis with chronic back pain 4. Underlying history of Raynaud's syndrome 5. Underlying history of hypertension At this time medication and labs were reviewed Cardiology and pulmonary consultation requested Recheck labs and chest x-ray in a.m. Will follow closely
[2020-09-02] MEDS: ASPIRIN 81 MG PO SCH (21:55)
[2020-09-02] MEDS: ENOXAPARIN 80 MG/0.8 ML SYRINGE SQ SCH (21:55)
[2020-09-02] MEDS: MELATONIN 5 MG TABLET PO SCH (21:55)
[2020-09-03] MEDS: methylPREDNISolone SOD SUCCI 125 MG/2 ML VIAL IV SCH ×4 (00:30→17:22)
[2020-09-03 06:24] LABS: Anisocytosis Slight; Basophils % (A) 0 %; Eosinophils % (A) 0 %; HGB 11.9 gm/dL (11.4-16.0); Hypochromasia Marked; Lymphocytes # (A) 0.6 k/uL (1.0-4.8); Lymphocytes % (A) 7 %; MCH 26.7 pg (25.0-35.0); MCHC 30.4 g/dL (31.0-37.0); MCV 87.8 fL (80.0-100.0); Mean Platelet Volume 8.4; Monocytes # (A) 0.2 k/uL (0-1.0); Monocytes % (A) 2 %; Neutrophils # (A) 8.5 k/uL (1.3-7.7); Neutrophils % (A) 90 %; Platelet Count 215 k/uL (150-450); RBC 4.45 m/uL (3.80-5.40); WBC 9.5 k/uL (3.8-10.6)
[2020-09-03] MEDS: CHOLECALCIFEROL 1,000 UNIT TAB PO SCH (09:50)
[2020-09-03] MEDS: METOPROLOL TARTRATE 12.5 MG TAB PO SCH ×2 (09:50→20:59)
[2020-09-03] MEDS: FAMOTIDINE 20 MG TAB PO SCH ×2 (09:50→20:59)
[2020-09-03] MEDS: GABAPENTIN 100 MG CAP PO SCH ×2 (09:50→20:59)
[2020-09-03] MEDS: ASCORBIC ACID 500 MG TAB PO SCH (09:50)
[2020-09-03] MEDS: NIFEdipine XL 30 MG TAB.ER.24 PO SCH ×2 (09:50→20:59)
[2020-09-03] MEDS: ENOXAPARIN 80 MG/0.8 ML SYRINGE SQ SCH ×2 (09:50→20:59)
[2020-09-03] MEDS: ZINC SULFATE 220 MG CAP PO SCH (09:50)
[2020-09-03] MEDS: HYDROCORTISONE 2.5% RECTAL CREAM 30 GM TUBE RECTAL SCH ×3 (09:51→20:58)
[2020-09-03] MEDS: HYDROCORTISONE SUPPOSITORY 25 MG SUPP RECTAL SCH ×2 (09:51→20:58)
[2020-09-03 10:11] LABS: African American GFR (CKD) 109.7 (60.0-200.0); Albumin 3.2 g/dL (3.80-4.90); Albumin/Globulin Ratio 1.28 (1.60-3.17); Anion Gap 10.2 mmol/L (4.00-12.00); Calcium 8.7 mg/dL (8.7-10.3); Carbon Dioxide 22.8 mmol/L (21.6-31.8); Globulin 2.5 g/dL (1.6-3.3); Non-African American GFR(CKD) 94.7 (60.0-200.0); Potassium 4.8 mmol/L (3.5-5.5); Total Bilirubin 0.6 mg/dL (0.2-1.2); Total Protein 5.7 g/dL (6.2-8.2)
--- NOTE | 2020-09-03 13:04 | P.PN ---
Subjective Progress Note Date: 09/03/20 Claribel Ruiz, is a 74-year-old female patient of Dr. stokes who presented to [facility] with a chief complaint of cough and shortness of breath, patient was transferred from [facility] she had elevated troponin level and positive Covid 19 testing she was evaluated in emergency room she was started on IV heparin [facility] in the relation non-ST elevation myocardial infarction with elevated troponin, patient also had elevated d-dimer at 3.[address] angiogram of the chest that was negative for pulmonary embolism however it was positive for extensive patchy groundglass opacities throughout the lungs. Patient was seen and examined in the emergency room she is alert and oriented 3 in no apparent distress she is maintained on oxygen via nasal cannula at 6 L there is no fever or chills no headache or dizziness she has cough and shortness of breath no chest pain no nausea or vomiting no abdominal pain no diarrhea no blood in the stools no burning with urination no frequency or urgency and no hematuria. On 08/28/2020 patient was seen and examined on the medical floor, she is alert and oriented 3 in no distress she is complaining of cough and shortness of breath she is complaining of generalized weakness otherwise she denies any complaints there is no fever or chills no headache or dizziness no chest pain no palpitation no nausea or vomiting no abdominal pain no diarrhea no blood in the stools no burning with urination no frequency or urgency no hematuria On 08/29/2020 patient was seen and examined on the medical floor, she is alert and oriented in no distress she is complaining of cough and shortness of breath she is complaining of generalized weakness, she is complaining of hemoorrhoides with pain and discomfort otherwise she denies any complaints there is no fever or chills no headache or dizziness no chest pain no palpitation no nausea or vomiting no abdominal pain no diarrhea no blood in the stools no burning with urination no frequency or urgency no hematuria On 08/30/2020 patient was seen and examined on the medical floor she is complaining of hemorrhoids with pain and bleeding she is complaining of shortness of breath and cough otherwise she denies any complaints there is no fever or chills no headache or dizziness no nausea or vomiting no abdominal pain no diarrhea no burning with urination no frequency or urgency no hematuria On 08/31/2020 patient was seen and examined on the medical floor she is still complaining of shortness of breath, cough and generalized weakness she is maintained on high flow oxygen otherwise she denies any complaints at this time there is no fever or chills no headache or dizziness no chest pain no nausea or vomiting no abdominal pain no diarrhea no blood in the stools no burning with urination no frequency or urgency and no hematuria On 09/01/2020 patient was seen and examined on the medical floor she is alert and oriented 3 she is still complaining of significant shortness of breath otherwise she denies any complaints she stated that she is having some pain in her legs and is requesting gabapentin 200 mg twice a day she stated that she was on that at home prior to admission although it was not listed on her home medication list. Otherwise patient denies any complaints there is no fever or chills no headache or dizziness no chest pain no nausea or vomiting no abdominal pain no diarrhea no blood in the stools no burning with urination no frequency or urgency and no hematuria. On 09/02/2020 patient was seen and examined on the medical floor, she is somnolant, responsive she is still complaining of generalized weakness shortness of breath fatigue and cough, she has poor oral intake, at this time, patient remains full code per her request, we will place a midline and start on TPN, consultation for infectious disease was initiated, condition is poor, prognosis is guarded On 09/03/2020 patient was seen and examined on the medical floor she is more alert today she is sitting up at the chair, yesterday she was very somnolent and she had almost no oral intake however today she is sitting up and she is having some food, at this time will hold plans for midline and TPN, Will consult nutrition to assess oral intake, will follow closely, patient is still com plaining of cough and shortness of breath otherwise she denies any complaints there is no fever or chills no headache or dizziness no chest pain no palpitation no nausea or vomiting no abdominal pain no diarrhea no burning with urination no frequency or urgency and no hematuria Objective - Vital Signs Vital signs: Vital Signs Temp 97.5 F L 09/03/20 11:00 Pulse 64 09/03/20 11:00 Resp 19 09/03/20 11:00 BP 131/71 09/03/20 05:12 Pulse Ox 100 09/03/20 11:00 Intake & Output 09/02/20 09/03/20 09/03/20 18:59 06:59 18:59 Weight 71.5 kg Other: Voiding Method Bedside Commode Diaper Diaper Bedpan Incontinent Incontinent Diaper Incontinent # Voids 3 1 - Exam In general patient is alert and oriented 3 in no apparent distress HEENT head normocephalic and atraumatic Neck is supple no JVD no goiter no lymphadenopathy Chest exam reveals fine crackles in both lung torres no wheezing Cardiac exam reveals regular heart sounds S1 and S2 no gallops no murmurs Abdomen is soft nontender no organomegaly with normal bowel sounds Extremity exam reveals minimal edema no cyanosis or clubbing Neurological examination reveals no gross focal neurological deficit - Labs CBC & Chem 7: 09/03/20 05:28 09/03/20 05:28 Labs: Abnormal Lab Results - Last 24 Hours (Table) 09/03/20 09/03/20 Range/Units 05:28 05:28 MCHC 30.4 L (31.0-37.0) g/dL RDW 17.0 H (11.5-15.5) % Neutrophils # 8.5 H (1.3-7.7) k/uL Lymphocytes # 0.6 L (1.0-4.8) k/uL BUN 28.0 H (9.0-27.0) mg/dL Creatinine 0.5 L (0.6-1.5) mg/dL BUN/Creatinine Ratio 56.00 H (12.00-20.00) Ratio Glucose 127 H (70-110) mg/dL AST 12 L (13-35) U/L Total Protein 5.7 L (6.2-8.2) g/dL Albumin 3.20 L (3.80-4.90) g/dL Albumin/Globulin Ratio 1.28 L (1.60-3.17) g/dL Assessment and Plan Plan: 1. Covid 19 pneumonia pulmonary consultation requested, patient will be started on Decadron and Remdesevir 2. Elevated troponin level, patient was seen by cardiology, it was felt that her troponin elevation is related to hypoxia there was no evidence of acute coronary syndrome 3. Underlying history of scoliosis with chronic back pain 4. Underlying history of Raynaud's syndrome 5. Underlying history of hypertension At this time medication and labs were reviewed Cardiology and pulmonary consultation requested Recheck labs and chest x-ray in a.m. Will follow closely
--- NOTE | 2020-09-03 14:03 | P.PN ---
Subjective Progress Note Date: 09/03/20 Principal diagnosis: Acute hypoxic respiratory failure secondary to CoVID 19 pneumonitis This is a 74-year-old female with history of multiple medical problems including scleroderma, Raynaud's syndrome, patient was transferred yesterday from [facility] to [facility] with symptoms of shortness of breath, fever, and she was noted to have positive pcr covid 19. Patient was also noted to have elevated troponin level while at [facility]. Patient was started on heparin at [facility] for presumptive non-ST elevation myocardial infarction, CT angiogram done at [facility] showed extensive patchy groundglass opacities affecting both lungs. Patient required increase in her FiO2 up to 15 L flow per minute, and I was asked to see her on consultation. I saw this patient in the ER, she is now on 11 L high flow nasal cannula, and her O2 saturation is ranging anywhere between 91-95%. Patient is noted to be in no distress, her symptoms of shortness of breath are about 1 week in urination. After evaluating the patient, we recommended that the patient goes on the Covid 19 cocktail, and we initiated remdesivir. Patient clearly wished DO NOT RESU SCITATE CODE STATUS, hence we'll arrange for the patient to be transferred to a regular medical floor instead of transferred to the ICU. The patient is seen today 08/28/2020 in follow-up on the regular medical floor. She is currently sitting up in a chair at the bedside. Awake and alert in no ac juno distress. He states her breathing is a bit easier today compared to yesterday. Still dyspneic with minimal exertion. Still requiring 11 L high flow nasal cannula to maintain O2 saturations in the 90s. She's been afebrile. Hemodynamically stable. White count 9.7. Hemoglobin 11.1. Sodium 138. Potassium 4.5. Creatinine 0.6. This is day 2 of Remdesivir. She remains on dexamethasone, heparin drip for elevated troponin. On 08/29/2020 patient seen in follow-up on the medical surgical floor. She remains on high flow oxygen, per Airvo at 3 L/m, and FiO2 of 65%, and a pulse ox 93-94%, she's been afebrile, hemodynamically stable, does have tremors of breath with exertion, but breathing comfortably at rest, her last chest x-ray was on 08/19/2020 shown extensive pulmonary interstitial pneumonia. Patient continues on oral Decadron, she is on day 3 of Remdesivir treatment. Today's labs have been reviewed, showing white blood cell count of 13, hemoglobin of 10.6, electrolytes were unremarkable, renal profile was unremarkable. On 08/30/2020 patient seen in follow-up on medical surgical floor. She remains on high flow oxygen, currently at 3 L and FiO2 of 66%, her pulse ox of 92%, she is afebrile, hemodynamically she is stable, no worsening dyspnea, she is up in the chair, today is day 4 of Remdesivir treatment, her vital signs have been stable, she continues on heparin infusion she denies any chest pain. The patient is seen today 08/31/2020 in follow-up on the regular medical floor. She is currently resting in bed. She remains on the AirVo high flow oxygen device at 25 L and 70% FiO2 to maintain O2 saturations in the 90s. She's been afebrile. This will be day 5 of Remdesivir. The patient is seen today 09/01/2020 in follow-up on the regular medical floor. She is currently sitting up in a chair at the bedside. She is awake and alert. She is still quite dyspneic with minimal exertion. Chest x-ray continues to show bilateral infiltrates. She has completed her Remdesivir. She is still requiring AirVo at 25 L and 68% FiO2 to maintain O2 saturations in the 90s. Sputum culture pending. Blood culture reveals no growth. D-dimer 0.69. She remains on IV Solu-Medrol, bronchodilators, Lovenox, vitamin supplements. The patient is seen today 09/02/2020 in follow-up on the regular medical floor. She is awake and alert. She is dyspneic with minimal exertion. Dyspneic with conversation. She remains on AirVo high flow oxygen at 50 L and 90% FiO2. W brandon count 18.7. Hemoglobin 12.1. Sodium 139. Potassium 4.3. Creatinine 0.6. She remains on dexamethasone, bronchodilators, Lovenox, vitamin supplements. Chest x-ray revealed confluent groundglass infiltrates with some improvement in aeration of the upper lobes. Sitters at the bedside to assure the patient keeps her oxygen on. The patient is seen today 09/03/2020 in follow-up on the regular medical floor. She is currently sitting up in a chair at the bedside. Awake and alert in no acute distress. She does still require the AirVo high flow oxygen device at 50 L and 90% FiO2. She is afebrile. White count 9.5. Hemoglobin 11.9. Leukocyte 0.6. Sodium 130. Potassium 4.8. Creatinine 0.5. She remains on IV Solu- Medrol, bronchodilators, Lovenox 80 mg twice a day, vitamin supplements. Objective - Vital Signs Vital signs: Vital Signs Temp 97.5 F L 09/03/20 11:00 Pulse 64 09/03/20 11:00 Resp 19 09/03/20 11:00 BP 131/71 09/03/20 05:12 Pulse Ox 100 09/03/20 11:00 Intake & Output 09/02/20 09/03/20 09/03/20 18:59 06:59 18:59 Weight 71.5 kg Other: Voiding Method Bedside Commode Diaper Diaper Bedpan Incontinent Incontinent Diaper Incontinent # Voids 3 1 - Exam GENERAL EXAM: Alert, pleasant 74-year-old female patient, on AirVo at 90% FiO2, comfortable in no apparent distress. HEAD: Normocephalic. EYES: Normal reaction of pupils, equal size. NOSE: Clear with pink turbinates. THROAT: No erythema or exudates. NECK: No masses, no JVD. CHEST: No chest wall deformity. LUNGS: Equal air entry with basilar crackles, few scattered rhonchi, diminished CVS: S1 and S2 normal with no audible murmur, regular rhythm. ABDOMEN: No hepatosplenomegaly, normal bowel sounds, no guarding or rigidity. SPINE: No scoliosis or deformity SKIN: No rashes CENTRAL NERVOUS SYSTEM: No focal deficits, tone is normal in all 4 extremities. EXTREMITIES: There is no peripheral edema. No clubbing, no cyanosis. Peripheral pulses are intact. - Labs CBC & Chem 7: 09/03/20 05:28 09/03/20 05:28 Labs: Abnormal Lab Results - Last 24 Hours (Table) 09/03/20 09/03/20 Range/Units : 05:28 MCHC 30.4 L (31.0-37.0) g/dL RDW 17.0 H (11.5-15.5) % Neutrophils # 8.5 H (1.3-7.7) k/uL Lymphocytes # 0.6 L (1.0-4.8) k/uL BUN 28.0 H (9.0-27.0) mg/dL Creatinine 0.5 L (0.6-1.5) mg/dL BUN/Creatinine Ratio 56.00 H (12.00-20.00) Ratio Glucose 127 H (70-110) mg/dL AST 12 L (13-35) U/L Total Protein 5.7 L (6.2-8.2) g/dL Albumin 3.20 L (3.80-4.90) g/dL Albumin/Globulin Ratio 1.28 L (1.60-3.17) g/dL Assessment and Plan Assessment: 1 Acute hypoxic respiratory failure secondary to CoVID 19 pneumonitis, requiring AirVo high flow oxygen at 50 L 90% FiO2, completed Remdesivir 2 History of scleroderma 3 History of Raynaud's syndrome 4 Hypertension 5 Troponin leak Plan: The patient was seen and evaluated by Dr. Arredondo Titrate down the FiO2 as tolerated Continue IV Solu-Medrol 60mg every 6 hours Continue Lovenox to 80 mg subcutaneous twice a day Continue vitamin C, vitamin D, zinc, Pepcid, melatonin Completed Remdesivir Give convalescent plasma Repeat chest x-ray in a.m. We will continue to follow Prognosis is guarded I, the cosigning physician, performed a history & physical examination of the patient. Lungs sounds with basilar crackles, scattered rhonchi, diminished. Maintaining good O2 saturations in the 90s on 90% FiO2 via AirVo. I discussed the assessment and plan of care with my nurse practitioner, Marti Espinoza. I attest to the above note as dictated by her.
[2020-09-03] MEDS: MELATONIN 5 MG TABLET PO SCH (20:59)
[2020-09-03] MEDS: ASPIRIN 81 MG PO SCH (20:59)
[2020-09-03] MEDS ORDERED: LEVOFLOXACIN 750MG-D5W PMX 750 MG in DEXTROSE/WATER 1 150ML.BAG IVPB STA (23:21)
--- NOTE | 2020-09-03 23:21 | P.CONS ---
History of Present Illness - Reason for Consult Consult date: 09/03/20 covid19 Requesting physician: Akbar Swenson - Chief Complaint shortness of breath x days - History of Present Illness Patient is a 74-year-old female presenting to the ER at [facility] about a week ago in this patient who was basically transferred from [facility] with the patient presented with increasing shortness of breath she was noticed to be hypoxic so diagnosed with COVID-19 and did have elevated troponin patient main symptom has been shortness of breath and cough that was going on for about 4 to 5 days before presentation to the hospital patient on admission to this facility did not have any fever throughout her hospital stay patient did have a normal white count did jump to 18.7 yesterday however is normal today patient also have elevated D-dimer patient did have a normal liver enzymes CRP procalcitonin not done patient did have a CT angiogram of the chest on admission there was negative for PE diffuse extensive patchy groundglass opacities throughout the lungs correlate for Covid patient be treated with 5-day course of remdesivir she was on dexamethasone that has been switched to Solu- Medrol yesterday currently on zinc and her Lovenox infection was consulted last evening for further management at the time my evaluation this morning the patient is afebrile he still complaining of shortness of breath though did have some improvement and requiring high flow nasal cannula oxygen denies having any chest pain she did have a cough and minimal sputum no nausea no vomiting no abdominal pain or diarrhea. Review of Systems Positive point has been mentioned in HPI rest of the systems are negative. 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 History of Any Multi-Drug Resistant Organisms: None Reported Past Surgical History: No Surgical Hx Reported Past Anesthesia/Blood Transfusion Reactions: No Reported Reaction Past Psychological History: No Psychological Hx Reported Smoking Status: Never smoker Past Alcohol Use History: None Reported Past Drug Use History: None Reported - Past Family History Mother Family Medical History: Dementia, Hypertension Additional Family Medical History / Comment(s): Lived until 102 Father Family Medical History: COPD Additional Family Medical History / Comment(s): in his late 60's from emphysema Medications and Allergies Home Medications Medication Instructions Recorded Confirmed Type NIFEdipine [Nifedical Xl] 30 mg PO BID 06/28/15 08/27/20 History Acetaminophen [Tylenol Arthritis] 650 mg PO Q8H PRN 08/27/20 08/27/20 History Alendronate Sodium [Binosto] 70 mg PO WE 08/27/20 08/27/20 History Cholecalciferol [Vitamin D3 (25 1,000 unit PO DAILY 08/27/20 08/27/20 History Mcg = 1000 Iu)] Mycophenolate Mofetil [Cellcept] 500 mg PO TID 08/27/20 08/27/20 History Pseudoephedrine 12Hr [Sudafed 12Hr] 120 mg PO Q12H PRN 08/27/20 08/27/20 History predniSONE 10 mg PO DAILY 08/27/20 08/27/20 History traMADol HCL 50 mg PO TID PRN 08/27/20 08/27/20 History Celecoxib [CeleBREX] 200 mg PO BID PRN 08/29/20 08/29/20 History Allergies Allergy/AdvReac Type Severity Reaction Status Date / Time clindamycin HCl Allergy Rash/Hives Verified 08/27/20 10:09 [From Cleocin] clindamycin palmitate HCl Allergy Rash/Hives Verified 08/27/20 10:09 [From Cleocin] clindamycin phosphate Allergy Rash/Hives Verified 08/27/20 10:09 [From Cleocin] latex Allergy Rash/Hives Verified 08/27/20 10:09 Physical Exam Vitals: Vital Signs Temp Pulse Resp BP BP Pulse Ox 09/03/20 11:00 97.5 F L 64 19 100 09/03/20 05:12 97.6 F 51 L 18 131/71 97 09/02/20 23:00 97.0 F L 61 20 149/76 100 09/02/20 17:00 97.9 F 77 16 116/67 99 Intake and Output 09/02/20 09/03/20 09/03/20 22:59 06:59 14:59 Other: Voiding Method Diaper Diaper Incontinent Incontinent # Voids 3 1 Weight 71.5 kg GENERAL DESCRIPTION: Elderly female up in the chair, no distress. No tachypnea or accessory muscle of respiration use. HEENT: Shows Pallor , no scleral icterus. Oral mucous membrane is dry. NECK: Trachea central, no thyromegaly. LUNGS: Unlabored breathing. Coarse breath sounds bilaterally. No wheeze or crackle. HEART: S1, S2, regular rate and rhythm. ABDOMEN: Soft, no tenderness , guarding or rigidity EXTREMITIES: No edema of feet. SKIN: No rash, no masses palpable. NEUROLOGICAL: The patient is awake, alert, oriented x3, mood and affect normal. Results CBC & Chem 7: 09/03/20 05:28 09/03/20 05:28 Labs: Abnormal Lab Results - Last 24 Hours (Table) 09/02/20 09/03/20 09/03/20 Range/Units 07:12 05:28 05:28 MCHC 30.4 L (31.0-37.0) g/dL RDW 17.0 H (11.5-15.5) % Neutrophils # 8.5 H (1.3-7.7) k/uL Lymphocytes # 0.6 L (1.0-4.8) k/uL Anion Gap 13.40 H (4.00-12.00) mmol/L BUN 28.0 H (9.0-27.0) mg/dL Creatinine 0.5 L (0.6-1.5) mg/dL BUN/Creatinine Ratio 36.67 H 56.00 H (12.00-20.00) Ratio Glucose 127 H (70-110) mg/dL AST 12 L (13-35) U/L Total Protein 6.0 L 5.7 L (6.2-8.2) g/dL Albumin 3.50 L 3.20 L (3.80-4.90) g/dL Albumin/Globulin Ratio 1.40 L 1.28 L (1.60-3.17) g/dL Assessment and Plan Assessment: patient admitted to hospital with respiratory distress hypoxemia in this patient who did have multifocal infiltrate on the CT angiogram high clinical suspicious for COVID-19 infection patient has completed her remdesivir therapy with persistent respiratory failure and need for high flow nasal cannula oxygen more likely from inflammatory changes associated with a COVID-19 infection and will benefit from high-dose steroids plus minus Actemra clinical no suspicious for secondary bacterial infection (1) COVID-19 Current Visit: Yes Status: Acute Code(s): U07.1 - COVID-19 SNOMED Code(s): 490912505 Plan: 1-we will check inflammatory markers and procalcitonin with a.m. lab 2-repeat chest x-ray 3-continue Solu-Medrol Lovenox and zinc sulfate 4-droplet isolation respiratory support. We will follow on clinical condition and cultures to further adjust medication if needed Thank you for this consultation we will follow the patient along with you Time with Patient: Greater than 30
[2020-09-04] MEDS: methylPREDNISolone SOD SUCCI 125 MG/2 ML VIAL IV SCH ×5 (00:34→23:31)
--- NOTE | 2020-09-04 08:47 | XR ---
EXAMINATION TYPE: XR chest 1V portable DATE OF EXAM: 09/04/2020 Comparison: 09/01/2020 Clinical History: 74-year-old female CoVID Findings: Heart upper limits of normal in size. Slight worsening in airspace disease bilaterally especially in the mid and lower lungs. Impression: Slight worsening bilateral airspace disease.
[2020-09-04] MEDS: METOPROLOL TARTRATE 12.5 MG TAB PO SCH ×2 (08:56→21:05)
[2020-09-04] MEDS: ASCORBIC ACID 500 MG TAB PO SCH (08:56)
[2020-09-04] MEDS: GABAPENTIN 100 MG CAP PO SCH ×2 (08:56→21:05)
[2020-09-04] MEDS: NIFEdipine XL 30 MG TAB.ER.24 PO SCH ×2 (08:56→21:06)
[2020-09-04] MEDS: CHOLECALCIFEROL 1,000 UNIT TAB PO SCH (08:56)
[2020-09-04] MEDS: FAMOTIDINE 20 MG TAB PO SCH ×2 (08:56→21:05)
[2020-09-04] MEDS: ZINC SULFATE 220 MG CAP PO SCH (08:56)
[2020-09-04] MEDS: HYDROCORTISONE SUPPOSITORY 25 MG SUPP RECTAL SCH ×2 (08:57→21:06)
[2020-09-04] MEDS: ENOXAPARIN 80 MG/0.8 ML SYRINGE SQ SCH ×2 (08:57→21:06)
[2020-09-04 12:39] LABS: C Reactive Protein 6.3 mg/dL (0.0-0.8)
[2020-09-04] MEDS: HYDROCORTISONE 2.5% RECTAL CREAM 30 GM TUBE RECTAL SCH ×3 (12:41→21:05)
--- NOTE | 2020-09-04 14:30 | P.PN ---
Subjective Progress Note Date: 09/04/20 Principal diagnosis: Acute hypoxic respiratory failure secondary to CoVID 19 pneumonitis This is a 74-year-old female with history of multiple medical problems including scleroderma, Raynaud's syndrome, patient was transferred yesterday from [facility] to [facility] with symptoms of shortness of breath, fever, and she was noted to have positive pcr covid 19. Patient was also noted to have elevated troponin level while at [facility]. Patient was started on heparin at [facility] for presumptive non-ST elevation myocardial infarction, CT angiogram done at [facility] showed extensive patchy groundglass opacities affecting both lungs. Patient required increase in her FiO2 up to 15 L flow per minute, and I was asked to see her on consultation. I saw this patient in the ER, she is now on 11 L high flow nasal cannula, and her O2 saturation is ranging anywhere between 91-95%. Patient is noted to be in no distress, her symptoms of shortness of breath are about 1 week in urination. After evaluating the patient, we recommended that the patient goes on the Covid 19 cocktail, and we initiated remdesivir. Patient clearly wished DO NOT RESU SCITATE CODE STATUS, hence we'll arrange for the patient to be transferred to a regular medical floor instead of transferred to the ICU. The patient is seen today 08/28/2020 in follow-up on the regular medical floor. She is currently sitting up in a chair at the bedside. Awake and alert in no ac juno distress. He states her breathing is a bit easier today compared to yesterday. Still dyspneic with minimal exertion. Still requiring 11 L high flow nasal cannula to maintain O2 saturations in the 90s. She's been afebrile. Hemodynamically stable. White count 9.7. Hemoglobin 11.1. Sodium 138. Potassium 4.5. Creatinine 0.6. This is day 2 of Remdesivir. She remains on dexamethasone, heparin drip for elevated troponin. On 08/29/2020 patient seen in follow-up on the medical surgical floor. She remains on high flow oxygen, per Airvo at 3 L/m, and FiO2 of 65%, and a pulse ox 93-94%, she's been afebrile, hemodynamically stable, does have tremors of breath with exertion, but breathing comfortably at rest, her last chest x-ray was on 08/19/2020 shown extensive pulmonary interstitial pneumonia. Patient continues on oral Decadron, she is on day 3 of Remdesivir treatment. Today's labs have been reviewed, showing white blood cell count of 13, hemoglobin of 10.6, electrolytes were unremarkable, renal profile was unremarkable. On 08/30/2020 patient seen in follow-up on medical surgical floor. She remains on high flow oxygen, currently at 3 L and FiO2 of 66%, her pulse ox of 92%, she is afebrile, hemodynamically she is stable, no worsening dyspnea, she is up in the chair, today is day 4 of Remdesivir treatment, her vital signs have been stable, she continues on heparin infusion she denies any chest pain. The patient is seen today 08/31/2020 in follow-up on the regular medical floor. She is currently resting in bed. She remains on the AirVo high flow oxygen device at 25 L and 70% FiO2 to maintain O2 saturations in the 90s. She's been afebrile. This will be day 5 of Remdesivir. The patient is seen today 09/01/2020 in follow-up on the regular medical floor. She is currently sitting up in a chair at the bedside. She is awake and alert. She is still quite dyspneic with minimal exertion. Chest x-ray continues to show bilateral infiltrates. She has completed her Remdesivir. She is still requiring AirVo at 25 L and 68% FiO2 to maintain O2 saturations in the 90s. Sputum culture pending. Blood culture reveals no growth. D-dimer 0.69. She remains on IV Solu-Medrol, bronchodilators, Lovenox, vitamin supplements. The patient is seen today 09/02/2020 in follow-up on the regular medical floor. She is awake and alert. She is dyspneic with minimal exertion. Dyspneic with conversation. She remains on AirVo high flow oxygen at 50 L and 90% FiO2. W brandon count 18.7. Hemoglobin 12.1. Sodium 139. Potassium 4.3. Creatinine 0.6. She remains on dexamethasone, bronchodilators, Lovenox, vitamin supplements. Chest x-ray revealed confluent groundglass infiltrates with some improvement in aeration of the upper lobes. Sitters at the bedside to assure the patient keeps her oxygen on. The patient is seen today 09/03/2020 in follow-up on the regular medical floor. She is currently sitting up in a chair at the bedside. Awake and alert in no acute distress. She does still require the AirVo high flow oxygen device at 50 L and 90% FiO2. She is afebrile. White count 9.5. Hemoglobin 11.9. Leukocyte 0.6. Sodium 130. Potassium 4.8. Creatinine 0.5. She remains on IV Solu- Medrol, bronchodilators, Lovenox 80 mg twice a day, vitamin supplements. The patient is seen today 09/04/2020 in follow-up on the regular medical floor. She is currently sitting up in a chair at the bedside. Awake and alert. She is quite dyspneic on minimal exertion. She remains on AirVo high flow oxygen at 50 L and 91% FiO2 to maintain O2 saturation in the high 80s low 90s. She's afebrile. Chest x-ray reveals slight worsening bilateral airspace disease. She remains on IV Solu-Medrol, bronchodilators, Lovenox 80 mg twice a day, vitamin supplements. She did receive convalescent plasma that was completed early this morning. Objective - Vital Signs Vital signs: Vital Signs Temp 97.2 F L 09/04/20 11:00 Pulse 83 09/04/20 11:00 Resp 19 09/04/20 11:00 BP 171/71 09/04/20 11:00 Pulse Ox 91 L 09/04/20 11:00 Intake & Output 09/03/20 09/04/20 09/04/20 18:59 06:59 18:59 Intake Total 201 Balance 201 Weight 74 kg Intake: Blood Product 201 Ffp Pher Conval Covid19 201 Acda 2 Unit [id number] Other: Voiding Method Diaper Diaper Diaper Incontinent Incontinent Incontinent # Voids 2 # Bowel Movements 0 - Exam GENERAL EXAM: Alert, pleasant,frail 74-year-old female patient, on AirVo at 90% FiO2, comfortable in no apparent distress. HEAD: Normocephalic. EYES: Normal reaction of pupils, equal size. NOSE: Clear with pink turbinates. THROAT: No erythema or exudates. NECK: No masses, no JVD. CHEST: No chest wall deformity. LUNGS: Equal air entry with basilar crackles, few scattered rhonchi, diminished CVS: S1 and S2 normal with no audible murmur, regular rhythm. ABDOMEN: No hepatosplenomegaly, normal bowel sounds, no guarding or rigidity. SPINE: No scoliosis or deformity SKIN: No rashes CENTRAL NERVOUS SYSTEM: No focal deficits, tone is normal in all 4 extremities. EXTREMITIES: There is no peripheral edema. No clubbing, no cyanosis. Peripheral pulses are intact. - Labs CBC & Chem 7: 09/03/20 05:28 09/03/20 05:28 Labs: Abnormal Lab Results - Last 24 Hours (Table) 09/04/20 09/04/20 Range/Units 07:38 07:38 D-Dimer 3.54 H (<0.60) mg/L FEU Lactate Dehydrogenase 373 H (120-246) U/L C-Reactive Protein 6.3 H (0.0-0.8) mg/dL Assessment and Plan Assessment: 1 Acute hypoxic respiratory failure secondary to CoVID 19 pneumonitis, requiring AirVo high flow oxygen at 50 L 90% FiO2, completed Remdesivir, received convalescent plasma 2 History of scleroderma 3 History of Raynaud's syndrome 4 Hypertension 5 Troponin leak Plan: The patient was seen and evaluated by Dr. Arredondo Received convalescent plasma today Slow to improve and remains on AirVo X-ray reveals no significant improvement We will continue to follow Prognosis is guarded I, the cosigning physician, performed a history & physical examination of the patient. Lungs sounds with basilar crackles, scattered rhonchi, diminished. Maintaining good O2 saturations in the 90s on 90% FiO2 via AirVo. I discussed the assessment and plan of care with my nurse practitioner, Marti Espinoza. I attest to the above note as dictated by her.
--- NOTE | 2020-09-04 14:33 | P.PN ---
Subjective Progress Note Date: 09/04/20 Claribel Ruiz, is a 74-year-old female patient of Dr. stokes who presented to [facility] with a chief complaint of cough and shortness of breath, patient was transferred from [facility] she had elevated troponin level and positive Covid 19 testing she was evaluated in emergency room she was started on IV heparin [facility] in the relation non-ST elevation myocardial infarction with elevated troponin, patient also had elevated d-dimer at 3.[address] angiogram of the chest that was negative for pulmonary embolism however it was positive for extensive patchy groundglass opacities throughout the lungs. Patient was seen and examined in the emergency room she is alert and oriented 3 in no apparent distress she is maintained on oxygen via nasal cannula at 6 L there is no fever or chills no headache or dizziness she has cough and shortness of breath no chest pain no nausea or vomiting no abdominal pain no diarrhea no blood in the stools no burning with urination no frequency or urgency and no hematuria. On 08/28/2020 patient was seen and examined on the medical floor, she is alert and oriented 3 in no distress she is complaining of cough and shortness of breath she is complaining of generalized weakness otherwise she denies any complaints there is no fever or chills no headache or dizziness no chest pain no palpitation no nausea or vomiting no abdominal pain no diarrhea no blood in the stools no burning with urination no frequency or urgency no hematuria On 08/29/2020 patient was seen and examined on the medical floor, she is alert and oriented in no distress she is complaining of cough and shortness of breath she is complaining of generalized weakness, she is complaining of hemoorrhoides with pain and discomfort otherwise she denies any complaints there is no fever or chills no headache or dizziness no chest pain no palpitation no nausea or vomiting no abdominal pain no diarrhea no blood in the stools no burning with urination no frequency or urgency no hematuria On 08/30/2020 patient was seen and examined on the medical floor she is complaining of hemorrhoids with pain and bleeding she is complaining of shortness of breath and cough otherwise she denies any complaints there is no fever or chills no headache or dizziness no nausea or vomiting no abdominal pain no diarrhea no burning with urination no frequency or urgency no hematuria On 08/31/2020 patient was seen and examined on the medical floor she is still complaining of shortness of breath, cough and generalized weakness she is maintained on high flow oxygen otherwise she denies any complaints at this time there is no fever or chills no headache or dizziness no chest pain no nausea or vomiting no abdominal pain no diarrhea no blood in the stools no burning with urination no frequency or urgency and no hematuria On 09/01/2020 patient was seen and examined on the medical floor she is alert and oriented 3 she is still complaining of significant shortness of breath otherwise she denies any complaints she stated that she is having some pain in her legs and is requesting gabapentin 200 mg twice a day she stated that she was on that at home prior to admission although it was not listed on her home medication list. Otherwise patient denies any complaints there is no fever or chills no headache or dizziness no chest pain no nausea or vomiting no abdominal pain no diarrhea no blood in the stools no burning with urination no frequency or urgency and no hematuria. On 09/02/2020 patient was seen and examined on the medical floor, she is somnolant, responsive she is still complaining of generalized weakness shortness of breath fatigue and cough, she has poor oral intake, at this time, patient remains full code per her request, we will place a midline and start on TPN, consultation for infectious disease was initiated, condition is poor, prognosis is guarded On 09/03/2020 patient was seen and examined on the medical floor she is more alert today she is sitting up at the chair, yesterday she was very somnolent and she had almost no oral intake however today she is sitting up and she is having some food, at this time will hold plans for midline and TPN, Will consult nutrition to assess oral intake, will follow closely, patient is still com plaining of cough and shortness of breath otherwise she denies any complaints there is no fever or chills no headache or dizziness no chest pain no palpitation no nausea or vomiting no abdominal pain no diarrhea no burning with urination no frequency or urgency and no hematuria. On 09/04/2020 patient was seen and examined on the medical floor she is alert and oriented 3 she is sitting up in a chair he reports some improvement in her shortness of breath she is having some oral intake better than yesterday she is complaining of cough and generalized weakness otherwise she denies any complaint there is no fever or chills no headache or dizziness no chest pain no palpitation no nausea or vomiting no abdominal pain no diarrhea no blood in the stools no burning with urination no frequency or urgency no hematuria. CODE STATUS was discussed again today with patient and she still wish to be full code Objective - Vital Signs Vital signs: Vital Signs Temp 97.2 F L 09/04/20 11:00 Pulse 83 09/04/20 11:00 Resp 19 09/04/20 11:00 BP 171/71 09/04/20 11:00 Pulse Ox 91 L 09/04/20 11:00 Intake & Output 09/03/20 09/04/20 09/04/20 18:59 06:59 18:59 Intake Total 201 Balance 201 Weight 74 kg Intake: Blood Product 201 Ffp Pher Conval Covid19 201 Acda 2 Unit [id number] Other: Voiding Method Diaper Diaper Diaper Incontinent Incontinent Incontinent # Voids 2 # Bowel Movements 0 - Exam In general patient is alert and oriented 3 in no apparent distress HEENT head normocephalic and atraumatic Neck is supple no JVD no goiter no lymphadenopathy Chest exam reveals fine crackles in both lung torres no wheezing Cardiac exam reveals regular heart sounds S1 and S2 no gallops no murmurs Abdomen is soft nontender no organomegaly with normal bowel sounds Extremity exam reveals minimal edema no cyanosis or clubbing Neurological examination reveals no gross focal neurological deficit - Labs CBC & Chem 7: 09/03/20 05:28 09/03/20 05:28 Labs: Abnormal Lab Results - Last 24 Hours (Table) 09/04/20 09/04/20 Range/Units 07:38 07:38 D-Dimer 3.54 H (<0.60) mg/L FEU Lactate Dehydrogenase 373 H (120-246) U/L C-Reactive Protein 6.3 H (0.0-0.8) mg/dL Assessment and Plan Plan: 1. Covid 19 pneumonia pulmonary consultation requested, patient will be started on Decadron and Remdesevir 2. Elevated troponin level, patient was seen by cardiology, it was felt that her troponin elevation is related to hypoxia there was no evidence of acute coronary syndrome 3. Underlying history of scoliosis with chronic back pain 4. Underlying history of Raynaud's syndrome 5. Underlying history of hypertension At this time medication and labs were reviewed Cardiology and pulmonary consultation requested Recheck labs and chest x-ray in a.m. Will follow closely
[2020-09-04] MEDS: MELATONIN 5 MG TABLET PO SCH (21:05)
[2020-09-04] MEDS: ASPIRIN 81 MG PO SCH (21:06)
--- NOTE | 2020-09-04 23:19 | PN ---
PROGRESS NOTE DATE OF SERVICE: 09/04/2020. REASON FOR FOLLOWUP: COVID-19 pneumonia. INTERVAL HISTORY: Patient is currently afebrile. As mentioned she is feeling slightly better. The patient denies having any chest pain. She did have a cough, not bringing up any sputum. No nausea, no vomiting. No abdominal pain. No diarrhea. PHYSICAL EXAMINATION: Blood pressure 133/69, pulse of 53. Temperature 97.9. She is 91% on 50% O2. General description is an elderly female up in the chair in no distress. Respiratory system: Unlabored breathing, decreased intense breath sounds. No wheeze. HEART: S1, S2. Regular rate and rhythm. ABDOMEN: Soft, no tenderness. LABS: D. dimer is down to 3.54 and LDH 3.7. Procalcitonin is normal. DIAGNOSTIC IMPRESSION AND PLAN: Patient with acute COVID-19 infection. This patient has completed her Remdesivir therapy, currently on steroid, Lovenox, to continue and and monitor clinical course closely. MMODL / IJN: [id number] /
[2020-09-05] MEDS: methylPREDNISolone SOD SUCCI 125 MG/2 ML VIAL IV SCH ×4 (05:46→23:30)
[2020-09-05 07:33] LABS: Anisocytosis Slight; Basophils % (A) 0 %; Eosinophils % (A) 0 %; HCT 35.1 % (34.0-46.0); Hypochromasia Moderate; Lymphocytes # (A) 0.5 k/uL (1.0-4.8); Lymphocytes % (A) 7 %; MCHC 31.4 g/dL (31.0-37.0); MCV 86.2 fL (80.0-100.0); Mean Platelet Volume 8.4; Monocytes # (A) 0.3 k/uL (0-1.0); Monocytes % (A) 5 %; Neutrophils % (A) 87 %; Platelet Count 269 k/uL (150-450); RBC 4.07 m/uL (3.80-5.40); RDW 16.9 % (11.5-15.5)
[2020-09-05 09:17] LABS: African American GFR (CKD) 109.7 (60.0-200.0); Albumin 3.2 g/dL (3.80-4.90); Albumin/Globulin Ratio 1.52 (1.60-3.17); Anion Gap 5.6 mmol/L (4.00-12.00); Carbon Dioxide 28.4 mmol/L (21.6-31.8); Globulin 2.1 g/dL (1.6-3.3); Non-African American GFR(CKD) 94.7 (60.0-200.0); Total Bilirubin 0.6 mg/dL (0.2-1.2); Total Protein 5.3 g/dL (6.2-8.2)
[2020-09-05] MEDS: GABAPENTIN 100 MG CAP PO SCH ×2 (09:28→20:30)
[2020-09-05] MEDS: ZINC SULFATE 220 MG CAP PO SCH (09:28)
[2020-09-05] MEDS: FAMOTIDINE 20 MG TAB PO SCH ×2 (09:28→20:30)
[2020-09-05] MEDS: CHOLECALCIFEROL 1,000 UNIT TAB PO SCH (09:28)
[2020-09-05] MEDS: ASCORBIC ACID 500 MG TAB PO SCH (09:28)
[2020-09-05] MEDS: METOPROLOL TARTRATE 12.5 MG TAB PO SCH ×2 (09:28→20:29)
[2020-09-05] MEDS: HYDROCORTISONE SUPPOSITORY 25 MG SUPP RECTAL SCH ×2 (09:29→20:30)
[2020-09-05] MEDS: ENOXAPARIN 80 MG/0.8 ML SYRINGE SQ SCH (09:29)
[2020-09-05] MEDS: NIFEdipine XL 30 MG TAB.ER.24 PO SCH ×2 (09:29→20:31)
--- NOTE | 2020-09-05 13:15 | P.PN ---
Subjective Progress Note Date: 09/05/20 On today's evaluation of 09/05/2020 the patient is feeling slightly better. Her appetite is improved. Nevertheless, the chest x-ray from yesterday was showing SA space disease bilaterally consistent with pneumonia and the patient is still requiring high flow oxygen at 15 L with an FiO2 of 90%. The patient is also on IV Solu-Medrol, completed a course of Remdesivir and she also received a dose of convalescent plasma. The patient wishes to have a full code status. The d- dimer is down to 3.54. C-reactive protein is down to 6.3 with an LDH of 373. The pro-calcitonin level was low at 0.09. 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 No 70 interstitial lung disease. Objective - Vital Signs Vital signs: Vital Signs Temp 97.7 F 09/05/20 11:00 Pulse 57 L 09/05/20 11:00 Resp 19 09/05/20 11:00 BP 136/68 09/05/20 11:00 Pulse Ox 93 L 09/05/20 11:00 Intake & Output 09/04/20 09/05/20 09/05/20 18:59 06:59 18:59 Weight 72.5 kg Other: Voiding Method Diaper Diaper Incontinent Incontinent # Voids 4 3 # Bowel Movements 0 - Exam - GENERAL EXAM: Alert, pleasant,frail 74-year-old female patient, on AirVo at 90% FiO2, comfortable in no apparent distress.she is not using his muscles of breathing and the patient seems to be quite comfortable at this point in time HEAD: Normocephalic. EYES: Normal reaction of pupils, equal size. NOSE: Clear with pink turbinates. THROAT: No erythema or exudates. NECK: No masses, no JVD. CHEST: No chest wall deformity. LUNGS: Equal air entry with basilar crackles, few scattered rhonchi, diminished CVS: S1 and S2 normal with no audible murmur, regular rhythm. ABDOMEN: No hepatosplenomegaly, normal bowel sounds, no guarding or rigidity. SPINE: No scoliosis or deformity SKIN: No rashes, skin changes consistent with scleroderma CENTRAL NERVOUS SYSTEM: No focal deficits, tone is normal in all 4 extremities. EXTREMITIES: There is no peripheral edema. No clubbing, no cyanosis. Peripheral pulses are intact. - Labs CBC & Chem 7: 09/05/20 06:26 09/05/20 06:26 Labs: Abnormal Lab Results - Last 24 Hours (Table) 09/05/20 09/05/20 Range/Units 06:26 06:26 Hgb 11.0 L (11.4-16.0) gm/dL RDW 16.9 H (11.5-15.5) % Lymphocytes # 0.5 L (1.0-4.8) k/uL BUN 31.0 H (9.0-27.0) mg/dL Creatinine 0.5 L (0.6-1.5) mg/dL BUN/Creatinine Ratio 62.00 H (12.00-20.00) Ratio Glucose 122 H (70-110) mg/dL Total Protein 5.3 L (6.2-8.2) g/dL Albumin 3.20 L (3.80-4.90) g/dL Albumin/Globulin Ratio 1.52 L (1.60-3.17) g/dL Assessment and Plan Plan: 1 Acute hypoxic respiratory failure secondary to CoVID 19 pneumonitis, requiring AirVo high flow oxygen at 50 L 90% FiO2, completed Remdesivir, received convalescent plasma. No major improvement over the past few days. On today's evaluation, the patient is feeling somewhat better. Appetite is improved. Nevertheless she still requiring high flow oxygen at 50 L. 2 History of scleroderma 3 History of Raynaud's syndrome 4 Hypertension 5 Troponin leak Plan: Received Remdesivir , steroids and convalescent plasma t remains on AirVo at 50 L and a FIo2 70% Chest x-ray from yesterday is showing events bilateral airspace disease right more than left more so over the lung bases X-ray reveals no significant improvement Will need adjustment in the Lovenox dose to half a dose twice a day as the patient d-dimer has dropped considerably. We will continue to follow Prognosis is guarded
[2020-09-05] MEDS: HYDROCORTISONE 2.5% RECTAL CREAM 30 GM TUBE RECTAL SCH ×3 (13:34→20:32)
--- NOTE | 2020-09-05 14:51 | P.PN ---
Subjective Progress Note Date: 09/05/20 HISTORY OF PRESENT ILLNESS This is a 74-year-old female patient admitted to the hospital for [place] 19 pn eumonia. Patient complains of minimal cough. No phlegm production. She denies having any chest pain. No abdominal pain. She denies any nausea vomiting or diarrhea. Patient has completed course of Remdesivir and continued on steroids, Lovenox and supplements. Lung sounds are improving. Patient has been afebrile, heart rate 57, blood pressure 136/68, pulse ox 91-93% on high flow nasal cannula 15 L. PHYSICAL EXAMINATION Gen: This is a 74-year-old female. Patient is sitting in a recliner and appears to be comfortable. HEENT: Head is atraumatic, normocephalic. Pupils equal, round. Sclerae is anicteric. LUNGS: Decreased breath sounds bilaterally.. No wheezes or rhonchi. No in tercostal retractions. HEART: Regular rate and rhythm. No murmur. ABDOMEN: Soft. Bowel sounds are present. No masses. No tenderness. EXTREMITIES: No pedal edema. NEUROLOGICAL: Patient is awake, alert and oriented x3. ASSESSMENT COVID-19 pneumonia PLAN Patient completed course of Remdesivir Continue Solu-Medrol 60 mg IV every 6 hours, Lovenox 40 mg subcu twice daily, zinc, vitamin C, vitamin D Continue oxygen therapy The above dictated assessment and findings were discussed with Dr. Wallace. The impression and plan of care have been directed as dictated. Antonieta Nguyen nurse practitioner acting as scribe for Dr. Wallace. Objective - Vital Signs Vital signs: Vital Signs Temp 97.7 F 09/05/20 11:00 Pulse 57 L 09/05/20 11:00 Resp 19 09/05/20 11:00 BP 136/68 09/05/20 11:00 Pulse Ox 93 L 09/05/20 11:00 Intake & Output 09/04/20 09/05/20 09/05/20 18:59 06:59 18:59 Weight 72.5 kg Other: Voiding Method Diaper Diaper Incontinent Incontinent # Voids 4 3 # Bowel Movements 0 - Labs CBC & Chem 7: 09/05/20 06:26 09/05/20 06:26 Labs: Abnormal Lab Results - Last 24 Hours (Table) 1209/05/20 09/05/20 Range/Units 07:38 06:26 06:26 Hgb 11.0 L (11.4-16.0) gm/dL RDW 16.9 H (11.5-15.5) % Lymphocytes # 0.5 L (1.0-4.8) k/uL BUN 31.0 H (9.0-27.0) mg/dL Creatinine 0.5 L (0.6-1.5) mg/dL BUN/Creatinine Ratio 62.00 H (12.00-20.00) Ratio Glucose 122 H (70-110) mg/dL Lactate Dehydrogenase 373 H (120-246) U/L C-Reactive Protein 6.3 H (0.0-0.8) mg/dL Total Protein 5.3 L (6.2-8.2) g/dL Albumin 3.20 L (3.80-4.90) g/dL Albumin/Globulin Ratio 1.52 L (1.60-3.17) g/dL
[2020-09-05 15:16] VITALS: BMI 22.9
--- NOTE | 2020-09-05 17:29 | P.PN ---
Subjective Progress Note Date: 09/05/20 Claribel Ruiz, is a 74-year-old female patient of Dr. stokes who presented to [facility] with a chief complaint of cough and shortness of breath, patient was transferred from [facility] she had elevated troponin level and positive Covid 19 testing she was evaluated in emergency room she was started on IV heparin [facility] in the relation non-ST elevation myocardial infarction with elevated troponin, patient also had elevated d-dimer at 3.[address] angiogram of the chest that was negative for pulmonary embolism however it was positive for extensive patchy groundglass opacities throughout the lungs. Patient was seen and examined in the emergency room she is alert and oriented 3 in no apparent distress she is maintained on oxygen via nasal cannula at 6 L there is no fever or chills no headache or dizziness she has cough and shortness of breath no chest pain no nausea or vomiting no abdominal pain no diarrhea no blood in the stools no burning with urination no frequency or urgency and no hematuria. On 08/28/2020 patient was seen and examined on the medical floor, she is alert and oriented 3 in no distress she is complaining of cough and shortness of breath she is complaining of generalized weakness otherwise she denies any complaints there is no fever or chills no headache or dizziness no chest pain no palpitation no nausea or vomiting no abdominal pain no diarrhea no blood in the stools no burning with urination no frequency or urgency no hematuria On 08/29/2020 patient was seen and examined on the medical floor, she is alert and oriented in no distress she is complaining of cough and shortness of breath she is complaining of generalized weakness, she is complaining of hemoorrhoides with pain and discomfort otherwise she denies any complaints there is no fever or chills no headache or dizziness no chest pain no palpitation no nausea or vomiting no abdominal pain no diarrhea no blood in the stools no burning with urination no frequency or urgency no hematuria On 08/30/2020 patient was seen and examined on the medical floor she is complaining of hemorrhoids with pain and bleeding she is complaining of shortness of breath and cough otherwise she denies any complaints there is no fever or chills no headache or dizziness no nausea or vomiting no abdominal pain no diarrhea no burning with urination no frequency or urgency no hematuria On 08/31/2020 patient was seen and examined on the medical floor she is still complaining of shortness of breath, cough and generalized weakness she is maintained on high flow oxygen otherwise she denies any complaints at this time there is no fever or chills no headache or dizziness no chest pain no nausea or vomiting no abdominal pain no diarrhea no blood in the stools no burning with urination no frequency or urgency and no hematuria On 09/01/2020 patient was seen and examined on the medical floor she is alert and oriented 3 she is still complaining of significant shortness of breath otherwise she denies any complaints she stated that she is having some pain in her legs and is requesting gabapentin 200 mg twice a day she stated that she was on that at home prior to admission although it was not listed on her home medication list. Otherwise patient denies any complaints there is no fever or chills no headache or dizziness no chest pain no nausea or vomiting no abdominal pain no diarrhea no blood in the stools no burning with urination no frequency or urgency and no hematuria. On 09/02/2020 patient was seen and examined on the medical floor, she is somnolant, responsive she is still complaining of generalized weakness shortness of breath fatigue and cough, she has poor oral intake, at this time, patient remains full code per her request, we will place a midline and start on TPN, consultation for infectious disease was initiated, condition is poor, prognosis is guarded On 09/03/2020 patient was seen and examined on the medical floor she is more alert today she is sitting up at the chair, yesterday she was very somnolent and she had almost no oral intake however today she is sitting up and she is having some food, at this time will hold plans for midline and TPN, Will consult nutrition to assess oral intake, will follow closely, patient is still com plaining of cough and shortness of breath otherwise she denies any complaints there is no fever or chills no headache or dizziness no chest pain no palpitation no nausea or vomiting no abdominal pain no diarrhea no burning with urination no frequency or urgency and no hematuria. On 09/04/2020 patient was seen and examined on the medical floor she is alert and oriented 3 she is sitting up in a chair he reports some improvement in her shortness of breath she is having some oral intake better than yesterday she is complaining of cough and generalized weakness otherwise she denies any complaint there is no fever or chills no headache or dizziness no chest pain no palpitation no nausea or vomiting no abdominal pain no diarrhea no blood in the stools no burning with urination no frequency or urgency no hematuria. CODE STATUS was discussed again today with patient and she still wish to be full code. On 09/05/2020 patient was seen and examined on the medical floor she is alert and oriented 3 in no distress there is some improvement in patient's symptoms and in her oxygen requirement since yesterday she is still complaining of severe shortness of breath with any activity she is complaining of cough and complaining of constipation otherwise she denies any complaints at this time there is no fever or chills no headache or dizziness no chest pain no palpitation no nausea or vomiting no abdominal pain no diarrhea no blood in the stools no burning with urination no frequency or urgency and no hematuria Objective - Vital Signs Vital signs: Vital Signs Temp 97.5 F L 09/05/20 04:25 Pulse 56 L 09/05/20 04:25 Resp 16 09/05/20 04:25 BP 144/75 09/05/20 04:25 Pulse Ox 97 09/05/20 04:25 Intake & Output 09/04/20 09/05/20 09/05/20 18:59 06:59 18:59 Weight 72.5 kg Other: Voiding Method Diaper Diaper Incontinent Incontinent # Voids 4 3 # Bowel Movements 0 - Exam In general patient is alert and oriented 3 in no apparent distress HEENT head normocephalic and atraumatic Neck is supple no JVD no goiter no lymphadenopathy Chest exam reveals fine crackles in both lung torres no wheezing Cardiac exam reveals regular heart sounds S1 and S2 no gallops no murmurs Abdomen is soft nontender no organomegaly with normal bowel sounds Extremity exam reveals minimal edema no cyanosis or clubbing Neurological examination reveals no gross focal neurological deficit - Labs CBC & Chem 7: 09/05/20 06:26 09/05/20 06:26 Labs: Abnormal Lab Results - Last 24 Hours (Table) 09/04/20 09/04/20 Range/Units 07:38 07:38 D-Dimer 3.54 H (<0.60) mg/L FEU Lactate Dehydrogenase 373 H (120-246) U/L C-Reactive Protein 6.3 H (0.0-0.8) mg/dL Assessment and Plan Plan: 1. Covid 19 pneumonia pulmonary consultation requested, patient will be started on Decadron and Remdesevir 2. Elevated troponin level, patient was seen by cardiology, it was felt that her troponin elevation is related to hypoxia there was no evidence of acute coronary syndrome 3. Underlying history of scoliosis with chronic back pain 4. Underlying history of Raynaud's syndrome 5. Underlying history of hypertension At this time medication and labs were reviewed Cardiology and pulmonary consultation requested Recheck labs and chest x-ray in a.m. Will follow closely
[2020-09-05] MEDS: MELATONIN 5 MG TABLET PO SCH (20:30)
[2020-09-05] MEDS: ASPIRIN 81 MG PO SCH (20:30)
[2020-09-05] MEDS: ENOXAPARIN 40 MG/0.4 ML SYRINGE SQ SCH (20:30)
[2020-09-05] MEDS ORDERED: ENOXAPARIN 80 MG/0.8 ML SYRINGE SQ SCH (21:00)
[2020-09-06] MEDS: methylPREDNISolone SOD SUCCI 125 MG/2 ML VIAL IV SCH ×4 (05:48→23:41)
[2020-09-06] MEDS: ASCORBIC ACID 500 MG TAB PO SCH (11:12)
[2020-09-06] MEDS: CHOLECALCIFEROL 1,000 UNIT TAB PO SCH (11:12)
[2020-09-06] MEDS: GABAPENTIN 100 MG CAP PO SCH ×2 (11:12→21:19)
[2020-09-06] MEDS: ENOXAPARIN 40 MG/0.4 ML SYRINGE SQ SCH ×2 (11:12→21:18)
[2020-09-06] MEDS: METOPROLOL TARTRATE 12.5 MG TAB PO SCH ×2 (11:12→21:19)
[2020-09-06] MEDS: FAMOTIDINE 20 MG TAB PO SCH ×2 (11:12→21:19)
[2020-09-06] MEDS: ZINC SULFATE 220 MG CAP PO SCH (11:13)
[2020-09-06] MEDS: HYDROCORTISONE 2.5% RECTAL CREAM 30 GM TUBE RECTAL SCH ×3 (11:13→21:21)
[2020-09-06] MEDS: NIFEdipine XL 30 MG TAB.ER.24 PO SCH ×2 (11:13→21:20)
[2020-09-06] MEDS: HYDROCORTISONE SUPPOSITORY 25 MG SUPP RECTAL SCH ×2 (11:13→21:20)
--- NOTE | 2020-09-06 12:21 | P.PN ---
Subjective Progress Note Date: 09/06/20 on 09/06/2020, the patient is still on high flow oxygen at 50L and she is also on 57% FiO2. Her pulse ox has improved. The patient remains on IV Solu-Medrol, completed a course of Remdesivir and she also received a dose of convalescent plasma. She is a full CODE STATUS. Her pro-calcitonin level is not elevated. She has known history of interstitial lung disease. She has history of scleroderma. She is a weak and fatigued and tired. No nausea. No vomiting. No diarrhea. No altered mentation. Blood work is stable for now. Objective - Vital Signs Vital signs: Vital Signs Temp 97.4 F L 09/06/20 10:52 Pulse 54 L 09/06/20 10:52 Resp 16 09/06/20 10:52 BP 123/71 09/06/20 10:52 Pulse Ox 98 09/06/20 11:37 Intake & Output 09/05/20 09/06/20 09/06/20 18:59 06:59 18:59 Intake Total 250 Balance 250 Weight 72.5 kg 74 kg Intake: Oral 250 Other: Voiding Method Diaper Diaper Incontinent Incontinent # Voids 2 1 # Bowel Movements 1 - Exam - GENERAL EXAM: Alert, pleasant,frail 74-year-old female patient, on AirVo at 50 lietrs 57% FiO2, comfortable in no apparent distress.she is not using his mu scles of breathing and the patient seems to be quite comfortable at this point in time HEAD: Normocephalic. EYES: Normal reaction of pupils, equal size. NOSE: Clear with pink turbinates. THROAT: No erythema or exudates. NECK: No masses, no JVD. CHEST: No chest wall deformity. LUNGS: Equal air entry with basilar crackles, few scattered rhonchi, diminished CVS: S1 and S2 normal with no audible murmur, regular rhythm. ABDOMEN: No hepatosplenomegaly, normal bowel sounds, no guarding or rigidity. SPINE: No scoliosis or deformity SKIN: No rashes, skin changes consistent with scleroderma CENTRAL NERVOUS SYSTEM: No focal deficits, tone is normal in all 4 extremities. EXTREMITIES: There is no peripheral edema. No clubbing, no cyanosis. Peripheral pulses are intact. - Labs CBC & Chem 7: 09/05/20 06:09/05/20 06:26 Assessment and Plan Plan: 1 Acute hypoxic respiratory failure secondary to CoVID 19 pneumonitis, requiring AirVo high flow oxygen at 50 L , 50% FiO2, completed Remdesivir, received convalescent plasma. No major improvement over the past few days. On today's evaluation, the patient is feeling somewhat better. Appetite is improved. Nevertheless she still requiring high flow oxygen at 50 L. we'll gradually wean down the FiO2 as tolerated. 2 History of scleroderma 3 History of Raynaud's syndrome 4 Hypertension 5 Troponin leak Plan: Received Remdesivir , steroids and convalescent plasma remains on AirVo at 50 L and a FIo2 57% Chest x-ray from yesterday is showing events bilateral airspace disease right more than left more so over the lung bases X-ray reveals no significant improvement Lovenox half a dose twice a day as the patient d-dimer has dropped considerably. We will continue to follow Prognosis is guarded, we'll continue to follow. Allow advancement in diet.
--- NOTE | 2020-09-06 14:06 | P.PN ---
Subjective Progress Note Date: 09/06/20 HISTORY OF PRESENT ILLNESS This is a 74-year-old female patient admitted to the hospital for COVID-19 pneu monia. Patient complains of minimal cough. No phlegm production. She denies having any chest pain. No abdominal pain. She denies any nausea vomiting or diarrhea. Patient has completed course of Remdesivir, status post convalescent plasma, and continued on steroids, Lovenox and supplements. Lung sounds are improving. Patient has been afebrile, heart rate 57, blood pressure 136/68, pulse ox 91-93% on high flow nasal cannula 15 L. 09/06: Patient denies any chest pain, cough, she denies shortness breath although she is on AirVo at pulse ox is 98% on FiO2 71, flow rate 50. She has been afe brile, heart rate 54, blood pressure 123/71. No nausea, vomiting or diarrhea. PHYSICAL EXAMINATION Gen: This is a 74-year-old female. Patient is sitting in a recliner and appears to be comfortable. HEENT: Head is atraumatic, normocephalic. Pupils equal, round. Sclerae is anicteric. LUNGS: Decreased breath sounds bilaterally. No wheezes or rhonchi. No intercostal retractions. HEART: Regular rate and rhythm. No murmur. ABDOMEN: Soft. Bowel sounds are present. No masses. No tenderness. EXTREMITIES: No pedal edema. NEUROLOGICAL: Patient is awake, alert and oriented x3. Generalized weakness. ASSESSMENT COVID-19 pneumonia History of scleroderma PLAN Patient completed course of Remdesivir, status post convalescent plasma Continue Solu-Medrol 60 mg IV every 6 hours, Lovenox 40 mg subcu twice daily, zinc, vitamin C, vitamin D Continue oxygen therapy The above dictated assessment and findings were discussed with Dr. Wallace. The impression and plan of care have been directed as dictated. Antonieta Nguyen nurse practitioner acting as scribe for Dr. Wallace. Objective - Vital Signs Vital signs: Vital Signs Temp 97.4 F L 09/06/20 10:52 Pulse 54 L 09/06/20 10:52 Resp 16 09/06/20 10:52 BP 123/71 09/06/20 10:52 Pulse Ox 98 09/06/20 11:37 Intake & Output 09/05/20 09/06/2009/06/20 18:59 06:59 18:59 Intake Total 250 Balance 250 Weight 72.5 kg 74 kg Intake: Oral 250 Other: Voiding Method Diaper Diaper Incontinent Incontinent # Voids 2 1 # Bowel Movements 1 - Labs CBC & Chem 7: 09/05/20 06:26 09/05/20 06:26
--- NOTE | 2020-09-06 18:06 | P.PN ---
Subjective Progress Note Date: 09/06/20 Claribel Ruiz, is a 74-year-old female patient of Dr. stokes who presented to [facility] with a chief complaint of cough and shortness of breath, patient was transferred from [facility] she had elevated troponin level and positive Covid 19 testing she was evaluated in emergency room she was started on IV heparin [facility] in the relation non-ST elevation myocardial infarction with elevated troponin, patient also had elevated d-dimer at 3.[address] angiogram of the chest that was negative for pulmonary embolism however it was positive for extensive patchy groundglass opacities throughout the lungs. Patient was seen and examined in the emergency room she is alert and oriented 3 in no apparent distress she is maintained on oxygen via nasal cannula at 6 L there is no fever or chills no headache or dizziness she has cough and shortness of breath no chest pain no nausea or vomiting no abdominal pain no diarrhea no blood in the stools no burning with urination no frequency or urgency and no hematuria. On 08/28/2020 patient was seen and examined on the medical floor, she is alert and oriented 3 in no distress she is complaining of cough and shortness of breath she is complaining of generalized weakness otherwise she denies any complaints there is no fever or chills no headache or dizziness no chest pain no palpitation no nausea or vomiting no abdominal pain no diarrhea no blood in the stools no burning with urination no frequency or urgency no hematuria On 08/29/2020 patient was seen and examined on the medical floor, she is alert and oriented in no distress she is complaining of cough and shortness of breath she is complaining of generalized weakness, she is complaining of hemoorrhoides with pain and discomfort otherwise she denies any complaints there is no fever or chills no headache or dizziness no chest pain no palpitation no nausea or vomiting no abdominal pain no diarrhea no blood in the stools no burning with urination no frequency or urgency no hematuria On 08/30/2020 patient was seen and examined on the medical floor she is complaining of hemorrhoids with pain and bleeding she is complaining of shortness of breath and cough otherwise she denies any complaints there is no fever or chills no headache or dizziness no nausea or vomiting no abdominal pain no diarrhea no burning with urination no frequency or urgency no hematuria On 08/31/2020 patient was seen and examined on the medical floor she is still complaining of shortness of breath, cough and generalized weakness she is maintained on high flow oxygen otherwise she denies any complaints at this time there is no fever or chills no headache or dizziness no chest pain no nausea or vomiting no abdominal pain no diarrhea no blood in the stools no burning with urination no frequency or urgency and no hematuria On 09/01/2020 patient was seen and examined on the medical floor she is alert and oriented 3 she is still complaining of significant shortness of breath otherwise she denies any complaints she stated that she is having some pain in her legs and is requesting gabapentin 200 mg twice a day she stated that she was on that at home prior to admission although it was not listed on her home medication list. Otherwise patient denies any complaints there is no fever or chills no headache or dizziness no chest pain no nausea or vomiting no abdominal pain no diarrhea no blood in the stools no burning with urination no frequency or urgency and no hematuria. On 09/02/2020 patient was seen and examined on the medical floor, she is somnolant, responsive she is still complaining of generalized weakness shortness of breath fatigue and cough, she has poor oral intake, at this time, patient remains full code per her request, we will place a midline and start on TPN, consultation for infectious disease was initiated, condition is poor, prognosis is guarded On 09/03/2020 patient was seen and examined on the medical floor she is more alert today she is sitting up at the chair, yesterday she was very somnolent and she had almost no oral intake however today she is sitting up and she is having some food, at this time will hold plans for midline and TPN, Will consult nutrition to assess oral intake, will follow closely, patient is still com plaining of cough and shortness of breath otherwise she denies any complaints there is no fever or chills no headache or dizziness no chest pain no palpitation no nausea or vomiting no abdominal pain no diarrhea no burning with urination no frequency or urgency and no hematuria. On 09/04/2020 patient was seen and examined on the medical floor she is alert and oriented 3 she is sitting up in a chair he reports some improvement in her shortness of breath she is having some oral intake better than yesterday she is complaining of cough and generalized weakness otherwise she denies any complaint there is no fever or chills no headache or dizziness no chest pain no palpitation no nausea or vomiting no abdominal pain no diarrhea no blood in the stools no burning with urination no frequency or urgency no hematuria. CODE STATUS was discussed again today with patient and she still wish to be full code. On 09/05/2020 patient was seen and examined on the medical floor she is alert and oriented 3 in no distress there is some improvement in patient's symptoms and in her oxygen requirement since yesterday she is still complaining of severe shortness of breath with any activity she is complaining of cough and complaining of constipation otherwise she denies any complaints at this time there is no fever or chills no headache or dizziness no chest pain no palpitation no nausea or vomiting no abdominal pain no diarrhea no blood in the stools no burning with urination no frequency or urgency and no hematuria. On 09/06/2020 patient was seen and examined on the medical floor she is alert a nd oriented 3 in no apparent distress she is still complaining of cough and shortness of breath she is still maintained on high flow oxygen she is complaining of back and lower extremities pain she has a known history of scleroderma and osteoarthritis otherwise she denies any complaints there is no fever or chills no headache or dizziness no chest pain no nausea or vomiting no abdominal pain no diarrhea no blood in the stools no burning with urination no frequency or urgency and no hematuria. Objective - Vital Signs Vital signs: Vital Signs Temp 97.3 F L 09/06/20 05:00 Pulse 44 L 09/06/20 05:00 Resp 20 09/06/20 05:00 BP 149/70 09/06/20 05:00 Pulse Ox 97 09/06/20 05:00 Intake & Output 09/05/20 09/06/20 09/06/20 18:59 06:59 18:59 Intake Total 250 Balance 250 Weight 72.5 kg 74 kg Intake: Oral 250 Other: Voiding Method Diaper Diaper Incontinent Incontinent # Voids 2 1 # Bowel Movements 1 - Exam In general patient is alert and oriented 3 in no apparent distress HEENT head normocephalic and atraumatic Neck is supple no JVD no goiter no lymphadenopathy Chest exam reveals fine crackles in both lung torres no wheezing Cardiac exam reveals regular heart sounds S1 and S2 no gallops no murmurs Abdomen is soft nontender no organomegaly with normal bowel sounds Extremity exam reveals minimal edema no cyanosis or clubbing Neurological examination reveals no gross focal neurological deficit - Labs CBC & Chem 7: 09/05/20 06:26 09/05/20 06:26 Labs: Abnormal Lab Results - Last 24 Hours (Table) 09/05/20 Range/Units 06:26 BUN 31.0 H (9.0-27.0) mg/dL Creatinine 0.5 L (0.6-1.5) mg/dL BUN/Creatinine Ratio 62.00 H (12.00-20.00) Ratio Glucose 122 H (70-110) mg/dL Total Protein 5.3 L (6.2-8.2) g/dL Albumin 3.20 L (3.80-4.90) g/dL Albumin/Globulin Ratio 1.52 L (1.60-3.17) g/dL Assessment and Plan Plan: 1. Covid 19 pneumonia pulmonary consultation requested, patient will be started on Decadron and Remdesevir 2. Elevated troponin level, patient was seen by cardiology, it was felt that her troponin elevation is related to hypoxia there was no evidence of acute coronary syndrome 3. Underlying history of scoliosis with chronic back pain 4. Underlying history of Raynaud's syndrome 5. Underlying history of hypertension At this time medication and labs were reviewed Cardiology and pulmonary consultation requested Recheck labs and chest x-ray in a.m. Will follow closely
[2020-09-06] MEDS: traMADol 50 MG TAB PO PRN (21:18)
[2020-09-06] MEDS: ASPIRIN 81 MG PO SCH (21:19)
[2020-09-06] MEDS: MELATONIN 5 MG TABLET PO SCH (21:19)
[2020-09-07] MEDS: methylPREDNISolone SOD SUCCI 125 MG/2 ML VIAL IV SCH ×3 (05:51→18:00)
[2020-09-07] MEDS: ASCORBIC ACID 500 MG TAB PO SCH (08:18)
[2020-09-07] MEDS: FAMOTIDINE 20 MG TAB PO SCH ×2 (08:18→21:03)
[2020-09-07] MEDS: NIFEdipine XL 30 MG TAB.ER.24 PO SCH ×2 (08:18→21:04)
[2020-09-07] MEDS: CHOLECALCIFEROL 1,000 UNIT TAB PO SCH (08:19)
[2020-09-07] MEDS: GABAPENTIN 100 MG CAP PO SCH ×2 (08:19→21:03)
[2020-09-07] MEDS: ZINC SULFATE 220 MG CAP PO SCH (08:19)
[2020-09-07] MEDS: ENOXAPARIN 40 MG/0.4 ML SYRINGE SQ SCH ×2 (08:20→21:03)
[2020-09-07] MEDS: HYDROCORTISONE SUPPOSITORY 25 MG SUPP RECTAL SCH ×2 (08:20→21:03)
[2020-09-07] MEDS: METOPROLOL TARTRATE 12.5 MG TAB PO SCH ×2 (08:20→21:04)
[2020-09-07] MEDS: HYDROCORTISONE 2.5% RECTAL CREAM 30 GM TUBE RECTAL SCH ×3 (08:21→21:04)
--- NOTE | 2020-09-07 11:40 | P.PN ---
Subjective Progress Note Date: 09/07/20 Principal diagnosis: Acute hypoxic respiratory failure related to COVID 19 pneumonitis This is a 74-year-old female with history of multiple medical problems including scleroderma, Raynaud's syndrome, patient was transferred yesterday from [facility] to [facility] with symptoms of shortness of breath, fever, and she was noted to have positive pcr covid 19. Patient was also noted to have elevated troponin level while at [facility]. Patient was started on heparin at [facility] for presumptive non-ST elevation myocardial infarction, CT angiogram done at [facility] showed extensive patchy groundglass opacities affecting both lungs. Patient required increase in her FiO2 up to 15 L flow per minute, and I was asked to see her on consultation. I saw this patient in the ER, she is now on 11 L high flow nasal cannula, and her O2 saturation is ranging anywhere between 91-95%. Patient is noted to be in no distress, her symptoms of shortness of breath are about 1 week in urination. After evaluating the patient, we recommended that the patient goes on the Covid 19 cocktail, and we initiated remdesivir. Patient clearly wished DO NOT RESUSC ITATE CODE STATUS, hence we'll arrange for the patient to be transferred to a regular medical floor instead of transferred to the ICU. The patient is seen today 08/28/2020 in follow-up on the regular medical floor. She is currently sitting up in a chair at the bedside. Awake and alert in no acute distress. He states her breathing is a bit easier today compared to yesterday. Still dyspneic with minimal exertion. Still requiring 11 L high flow nasal cannula to maintain O2 saturations in the 90s. She's been afebrile. Hemodynamically stable. White count 9.7. Hemoglobin 11.1. Sodium 138. Potassium 4.5. Creatinine 0.6. This is day 2 of Remdesivir. She remains on dexamethasone, heparin drip for elevated troponin. On 08/29/2020 patient seen in follow-up on the medical surgical floor. She remains on high flow oxygen, per Airvo at 3 L/m, and FiO2 of 65%, and a pulse ox 93-94%, she's been afebrile, hemodynamically stable, does have tremors of breath with exertion, but breathing comfortably at rest, her last chest x-ray was on 08/19/2020 shown extensive pulmonary interstitial pneumonia. Patient continues on oral Decadron, she is on day 3 of Remdesivir treatment. Today's labs have been reviewed, showing white blood cell count of 13, hemoglobin of 10.6, electrolytes were unremarkable, renal profile was unremarkable. On 08/30/2020 patient seen in follow-up on medical surgical floor. She remains on high flow oxygen, currently at 3 L and FiO2 of 66%, her pulse ox of 92%, she is afebrile, hemodynamically she is stable, no worsening dyspnea, she is up in the chair, today is day 4 of Remdesivir treatment, her vital signs have been stable, she continues on heparin infusion she denies any chest pain. On today's evaluation 09/07/2020 patient still remains on Airvo 50 L and FiO2 of 60%, and her pulse ox is around 95%, patient has completed a course of Remdesivir, she remains on IV steroids with Solu-Medrol, she has received a unit of convalescent plasma, she's been afebrile, yesterday chest x-ray showed stable bilateral consolidation. No acute events overnight, patient is somewhat depressed, and she thinks he may have oral candidiasis. No worsening cough. Ap petite is improving Objective - Vital Signs Vital signs: Vital Signs Temp 97 F L 09/07/20 10:14 Pulse 54 L 09/07/20 10:14 Resp 18 09/07/20 10:14 BP 132/82 09/07/20 10:14 Pulse Ox 95 09/07/20 10:14 Intake & Output 09/06/20 09/07/20 09/07/20 18:59 06:59 18:59 Intake Total 240 460 Balance 240 460 Weight 72 kg Intake: Oral 240 460 Other: Voiding Method Diaper Diaper Incontinent Incontinent # Voids 3 2 # Bowel Movements 1 - Exam GENERAL EXAM: Alert, very pleasant, 74-year-old white female, on Airvo at 50 L/m, and FiO2 of 60% comfortable in no apparent distress. HEAD: Normocephalic/atraumatic. EYES: Normal reaction of pupils, equal size. Conjunctiva pink, sclera white. NOSE: Clear with pink turbinates. THROAT: No erythema or exudates. NECK: No masses, no JVD, no thyroid enlargement, no adenopathy. CHEST: No chest wall deformity. Symmetrical expansion. LUNGS: Equal air entry with no crackles, wheeze, rhonchi or dullness. CVS: Regular rate and rhythm, normal S1 and S2, no gallops, no murmurs, no rubs ABDOMEN: Soft, nontender. No hepatosplenomegaly, normal bowel sounds, no guarding or rigidity. EXTREMITIES: No clubbing, no edema, no cyanosis, 2+ pulses and upper and lower extremities. MUSCULOSKELETAL: Muscle strength and tone normal. SPINE: No scoliosis or deformity SKIN: No rashes CENTRAL NERVOUS SYSTEM: Alert and oriented -3. No focal deficits, tone is normal in all 4 extremities. PSYCHIATRIC: Alert and oriented -3. Appropriate affect. Intact judgment and insight. - Labs CBC & Chem 7: 09/05/20 06:26 09/05/20 06:26 Assessment and Plan Plan: Assessment: #1. Acute hypoxic respiratory failure secondary to COVID 19 pneumonitis, started on the Remdesivir on 08/27/2020, STATUS POST iv STEROIDS, AND USE OF CONVALESCENT PLASMA #2. History of scleroderma #3. History of Raynaud's syndrome #4. Hypertension #5. Troponin leak, currently on heparin drip, patient was evaluated by cardiology and it was felt that the troponin elevation was related to hypoxia and there was no evidence of acute coronary syndrome Plan: Continue steroids, requiring high flow oxygen, however it's extremely drying to her oral membranes, she is complaining is really difficult for her to eat with the animal on, she is currently on 50 L and FiO2 of 60%, pulse ox is 95%, no worsening dyspnea, we'll try to give her a trial on 15 L per high flow, patient has developed oral candidiasis, will start her on nystatin swish and swallow. Continue supportive treatment, continue anticoagulation. I performed a history & physical examination of the patient and discussed their management with my nurse practitioner, Teagan Ceron. I reviewed the nurse practitioner's note and agree with the documented findings and plan of care. L zak sounds are positive for diminished breath sounds. The findings and the impression was discussed with the patient. I attest to the documentation by the nurse practitioner. Time with Patient: Less than 30
--- NOTE | 2020-09-07 18:00 | P.PN ---
Subjective Progress Note Date: 09/07/20 Claribel Ruiz, is a 74-year-old female patient of Dr. stokes who presented to [facility] with a chief complaint of cough and shortness of breath, patient was transferred from [facility] she had elevated troponin level and positive Covid 19 testing she was evaluated in emergency room she was started on IV heparin [facility] in the relation non-ST elevation myocardial infarction with elevated troponin, patient also had elevated d-dimer at 3.[address] angiogram of the chest that was negative for pulmonary embolism however it was positive for extensive patchy groundglass opacities throughout the lungs. Patient was seen and examined in the emergency room she is alert and oriented 3 in no apparent distress she is maintained on oxygen via nasal cannula at 6 L there is no fever or chills no headache or dizziness she has cough and shortness of breath no chest pain no nausea or vomiting no abdominal pain no diarrhea no blood in the stools no burning with urination no frequency or urgency and no hematuria. On 08/28/2020 patient was seen and examined on the medical floor, she is alert and oriented 3 in no distress she is complaining of cough and shortness of breath she is complaining of generalized weakness otherwise she denies any complaints there is no fever or chills no headache or dizziness no chest pain no palpitation no nausea or vomiting no abdominal pain no diarrhea no blood in the stools no burning with urination no frequency or urgency no hematuria On 08/29/2020 patient was seen and examined on the medical floor, she is alert and oriented in no distress she is complaining of cough and shortness of breath she is complaining of generalized weakness, she is complaining of hemoorrhoides with pain and discomfort otherwise she denies any complaints there is no fever or chills no headache or dizziness no chest pain no palpitation no nausea or vomiting no abdominal pain no diarrhea no blood in the stools no burning with urination no frequency or urgency no hematuria On 08/30/2020 patient was seen and examined on the medical floor she is complaining of hemorrhoids with pain and bleeding she is complaining of shortness of breath and cough otherwise she denies any complaints there is no fever or chills no headache or dizziness no nausea or vomiting no abdominal pain no diarrhea no burning with urination no frequency or urgency no hematuria On 08/31/2020 patient was seen and examined on the medical floor she is still complaining of shortness of breath, cough and generalized weakness she is maintained on high flow oxygen otherwise she denies any complaints at this time there is no fever or chills no headache or dizziness no chest pain no nausea or vomiting no abdominal pain no diarrhea no blood in the stools no burning with urination no frequency or urgency and no hematuria On 09/01/2020 patient was seen and examined on the medical floor she is alert and oriented 3 she is still complaining of significant shortness of breath otherwise she denies any complaints she stated that she is having some pain in her legs and is requesting gabapentin 200 mg twice a day she stated that she was on that at home prior to admission although it was not listed on her home medication list. Otherwise patient denies any complaints there is no fever or chills no headache or dizziness no chest pain no nausea or vomiting no abdominal pain no diarrhea no blood in the stools no burning with urination no frequency or urgency and no hematuria. On 09/02/2020 patient was seen and examined on the medical floor, she is somnolant, responsive she is still complaining of generalized weakness shortness of breath fatigue and cough, she has poor oral intake, at this time, patient remains full code per her request, we will place a midline and start on TPN, consultation for infectious disease was initiated, condition is poor, prognosis is guarded On 09/03/2020 patient was seen and examined on the medical floor she is more alert today she is sitting up at the chair, yesterday she was very somnolent and she had almost no oral intake however today she is sitting up and she is having some food, at this time will hold plans for midline and TPN, Will consult nutrition to assess oral intake, will follow closely, patient is still com plaining of cough and shortness of breath otherwise she denies any complaints there is no fever or chills no headache or dizziness no chest pain no palpitation no nausea or vomiting no abdominal pain no diarrhea no burning with urination no frequency or urgency and no hematuria. On 09/04/2020 patient was seen and examined on the medical floor she is alert and oriented 3 she is sitting up in a chair he reports some improvement in her shortness of breath she is having some oral intake better than yesterday she is complaining of cough and generalized weakness otherwise she denies any complaint there is no fever or chills no headache or dizziness no chest pain no palpitation no nausea or vomiting no abdominal pain no diarrhea no blood in the stools no burning with urination no frequency or urgency no hematuria. CODE STATUS was discussed again today with patient and she still wish to be full code. On 09/05/2020 patient was seen and examined on the medical floor she is alert and oriented 3 in no distress there is some improvement in patient's symptoms and in her oxygen requirement since yesterday she is still complaining of severe shortness of breath with any activity she is complaining of cough and complaining of constipation otherwise she denies any complaints at this time there is no fever or chills no headache or dizziness no chest pain no palpitation no nausea or vomiting no abdominal pain no diarrhea no blood in the stools no burning with urination no frequency or urgency and no hematuria. On 09/06/2020 patient was seen and examined on the medical floor she is alert a nd oriented 3 in no apparent distress she is still complaining of cough and shortness of breath she is still maintained on high flow oxygen she is complaining of back and lower extremities pain she has a known history of scleroderma and osteoarthritis otherwise she denies any complaints there is no fever or chills no headache or dizziness no chest pain no nausea or vomiting no abdominal pain no diarrhea no blood in the stools no burning with urination no frequency or urgency and no hematuria. On 09/07/2020 patient was seen and examined on the medical floor she is alert and oriented in no distress she is sitting up in a chair she is still complaining of cough and shortness of breath otherwise she denies any complaints maintained on high flow oxygen there is no fever or chills no headache or dizziness no chest pain no nausea or vomiting no abdominal pain no diarrhea no blood in the stools no burning with urination no frequency or urgency and no hematuria Objective - Vital Signs Vital signs: Vital Signs Temp 97.1 F L 09/07/20 05:00 Pulse 53 L 09/07/20 05:00 Resp 20 09/07/20 05:00 BP 127/72 09/07/20 05:00 Pulse Ox 95 09/07/20 05:00 Intake & Output 09/06/20 09/07/20 09/07/20 18:59 06:59 18:59 Intake Total 240 460 Balance 240 460 Weight 72 kg Intake: Oral 240 460 Other: Voiding Method Diaper Diaper Incontinent Incontinent # Voids 3 2 # Bowel Movements 1 - Exam In general patient is alert and oriented 3 in no apparent distress HEENT head normocephalic and atraumatic Neck is supple no JVD no goiter no lymphadenopathy Chest exam reveals fine crackles in both lung torres no wheezing Cardiac exam reveals regular heart sounds S1 and S2 no gallops no murmurs Abdomen is soft nontender no organomegaly with normal bowel sounds Extremity exam reveals minimal edema no cyanosis or clubbing Neurological examination reveals no gross focal neurological deficit - Labs CBC & Chem 7: 09/05/20 06:26 09/05/20 06:26 Assessment and Plan Plan: 1. Covid 19 pneumonia pulmonary consultation requested, patient will be started on Decadron and Remdesevir 2. Elevated troponin level, patient was seen by cardiology, it was felt that her troponin elevation is related to hypoxia there was no evidence of acute coronary syndrome 3. Underlying history of scoliosis with chronic back pain 4. Underlying history of Raynaud's syndrome 5. Underlying history of hypertension At this time medication and labs were reviewed Cardiology and pulmonary consultation requested Recheck labs and chest x-ray in a.m. Will follow closely
[2020-09-07] MEDS: ASPIRIN 81 MG PO SCH (21:03)
[2020-09-07] MEDS: MELATONIN 5 MG TABLET PO SCH (21:03)
[2020-09-07] MEDS: NYSTATIN 100,000 UNIT/ML SUSP 500,000 UNIT/5 ML CUP PO SCH (21:04)
--- NOTE | 2020-09-08 00:19 | PN ---
PROGRESS NOTE DATE OF SERVICE: 09/07/2020 REASON FOR FOLLOWUP: 1. Covid 19 urinary tract infection. 2. The patient with oral thrush. INTERVAL HISTORY: The patient is currently afebrile. Patient is breathing slightly comfortably today. She is complaining of sore throat and difficulty swallowing. No chest pain. Minimal cough. No abdominal pain. No diarrhea. PHYSICAL EXAMINATION: Blood pressure 131/70 with a pulse of 70. Temperature 99.5. She is 97% on 50% high- flow oxygen. General description is an elderly female up in the chair in no distress. HEENT: Shows thrush. Lungs unlabored breathing, decreased intensity of the breath sounds. No wheeze. Heart S1, S2. Regular rate and rhythm. ABDOMEN: Soft, no tenderness. LABS: Hemoglobin is 11.2, white count 7.3. BUN of 31, creatinine 0.5. DIAGNOSTIC IMPRESSION AND PLAN: 1. Patient with COVID-19 infection in this patient mostly ARDS type of picture in this patient currently on Lovenox and Solu Medrol to continue. 2. Patient with oral thrush, will add nystatin swish and swallow and monitor clinical course closely. MMODL / IJN: [id number] /
[2020-09-08] MEDS: methylPREDNISolone SOD SUCCI 125 MG/2 ML VIAL IV SCH ×5 (00:41→23:06)
[2020-09-08] MEDS: traMADol 50 MG TAB PO PRN (05:19)
[2020-09-08] MEDS: CHOLECALCIFEROL 1,000 UNIT TAB PO SCH (08:45)
[2020-09-08] MEDS: NYSTATIN 100,000 UNIT/ML SUSP 500,000 UNIT/5 ML CUP PO SCH ×4 (08:45→21:56)
[2020-09-08] MEDS: ZINC SULFATE 220 MG CAP PO SCH (08:45)
[2020-09-08] MEDS: FAMOTIDINE 20 MG TAB PO SCH ×2 (08:45→21:29)
[2020-09-08] MEDS: GABAPENTIN 100 MG CAP PO SCH ×2 (08:45→21:29)
[2020-09-08] MEDS: METOPROLOL TARTRATE 12.5 MG TAB PO SCH ×2 (08:46→21:30)
[2020-09-08] MEDS: ENOXAPARIN 40 MG/0.4 ML SYRINGE SQ SCH ×2 (08:46→21:29)
[2020-09-08] MEDS: ASCORBIC ACID 500 MG TAB PO SCH (08:46)
[2020-09-08] MEDS: NIFEdipine XL 30 MG TAB.ER.24 PO SCH ×2 (09:35→21:31)
[2020-09-08] MEDS: HYDROCORTISONE SUPPOSITORY 25 MG SUPP RECTAL SCH ×2 (09:36→21:30)
[2020-09-08] MEDS: HYDROCORTISONE 2.5% RECTAL CREAM 30 GM TUBE RECTAL SCH ×3 (09:45→21:32)
--- NOTE | 2020-09-08 14:08 | P.PN ---
Subjective Progress Note Date: 09/08/20 HISTORY OF PRESENT ILLNESS This is a 74-year-old female patient admitted to the hospital for COVID-19 pneu monia. Patient complains of minimal cough. No phlegm production. She denies having any chest pain. No abdominal pain. She denies any nausea vomiting or diarrhea. Patient has completed course of Remdesivir, status post convalescent plasma, and continued on steroids, Lovenox and supplements. Lung sounds are improving. Patient has been afebrile, heart rate 57, blood pressure 136/68, pulse ox 91-93% on high flow nasal cannula 15 L. 09/08: Patient denies any chest pain, cough, she denies shortness breath although she has been on AirVo and transition to 6 L high flow nasal cannula with pulse ox 100%. She has been afebrile, heart rate 62, blood pressure 124/68. No nausea, vomiting or diarrhea. PHYSICAL EXAMINATION Gen: This is a 74-year-old female. Patient is sitting in a recliner and appears to be comfortable. HEENT: Head is atraumatic, normocephalic. Pupils equal, round. Sclerae is anicteric. LUNGS: Clear to auscultation. No wheezes or rhonchi. No intercostal ret ractions. HEART: Regular rate and rhythm. No murmur. ABDOMEN: Soft. Bowel sounds are present. No masses. No tenderness. EXTREMITIES: No pedal edema. NEUROLOGICAL: Patient is awake, alert and oriented x3. Generalized weakness. ASSESSMENT COVID-19 pneumonia History of scleroderma Oral thrush PLAN Patient completed course of Remdesivir, status post convalescent plasma Continue Solu-Medrol 60 mg IV every 6 hours, Lovenox 40 mg subcu twice daily, zinc, vitamin C, vitamin D Continue oxygen therapy and attempt to wean. The above dictated assessment and findings were discussed with Dr. Wallace. The impression and plan of care have been directed as dictated. Antonieta Nguyen nurse practitioner acting as scribe for Dr. Wallace. Objective - Vital Signs Vital signs: Vital Signs Temp 97.5 F L 09/08/20 09:40 Pulse 62 09/08/20 09:40 Resp 20 09/08/20 09:40 BP 124/68 09/08/20 09:40 Pulse Ox 99 09/08/20 09:40 Intake & Output 09/07/20 09/08/20 09/08/20 18:59 06:59 18:59 Other: Voiding Method Diaper Diaper Diaper Incontinent Incontinent Incontinent # Voids 4 1 - Labs CBC & Chem 7: 09/05/20 06:26 09/05/20 06:26
--- NOTE | 2020-09-08 14:36 | P.PN ---
Subjective Progress Note Date: 09/08/20 On today's evaluation of 09/08/2020 the patient is being seen for a follow-up. No reported chest pain. She was on high flow oxygen 6 L yesterday and today she has been weaned down. She was on 45 L and then 10 L and currently she is down to 6 L and his saturations around 99%.. Hemodynamically stable. No nausea vomiting or diarrhea. She does not feel that she is getting better fast. She remains on IV Solu Medrol 60 mg every 6 hours addition to Lovenox 40 mg subcu twice a day and zinc and vitamin C and vitamin D. Her pulse ox on the current setting is in the order of 99%. Objective - Vital Signs Vital signs: Vital Signs Temp 97.5 F L 09/08/20 09:40 Pulse 62 09/08/20 09:40 Resp 20 09/08/20 09:40 BP 124/68 09/08/20 09:40 Pulse Ox 99 09/08/20 13:34 Intake & Output 09/07/20 09/08/20 09/08/20 18:59 06:59 18:59 Other: Voiding Method Diaper Diaper Diaper Incontinent Incontinent Incontinent # Voids 4 1 - Exam - GENERAL EXAM: Alert, pleasant,frail 74-year-old female patient, on6lof oxygen by nasal cannula, comfortable in no apparent distress.she is not using his muscles of breathing and the patient seems to be quite comfortable at this point in time HEAD: Normocephalic. EYES: Normal reaction of pupils, equal size. NOSE: Clear with pink turbinates. THROAT: No erythema or exudates. NECK: No masses, no JVD. CHEST: No chest wall deformity. LUNGS: Equal air entry with basilar crackles, few scattered rhonchi, diminished CVS: S1 and S2 normal with no audible murmur, regular rhythm. ABDOMEN: No hepatosplenomegaly, normal bowel sounds, no guarding or rigidity. SPINE: No scoliosis or deformity SKIN: No rashes, skin changes consistent with scleroderma CENTRAL NERVOUS SYSTEM: No focal deficits, tone is normal in all 4 extremities. EXTREMITIES: There is no peripheral edema. No clubbing, no cyanosis. Peripheral pulses are intact. - Labs CBC & Chem 7: 09/05/20 06:26 09/05/20 06:26 Assessment and Plan Plan: 1 Acute hypoxic respiratory failure secondary to CoVID 19 pneumonitis,clinically improving currently on 6 L of oxygen by nasal cannula 2 History of scleroderma 3 History of Raynaud's syndrome 4 Hypertension 5 Troponin leak Plan: Received Remdesivir , steroids and convalescent plasma Currently on 6 L of oxygen by nasal cannula. Continue weaning the FiO2 down. Chest x-ray from yesterday is showing events bilateral airspace disease right more than left more so over the lung bases X-ray reveals no significant improvement Lovenox half a dose twice a day as the patient d-dimer has dropped considerably. We will continue to follow Prognosis is guarded, we'll continue to follow. Allow advancement in diet.
[2020-09-08] MEDS ORDERED: MELOXICAM 7.5 MG TAB PO PRN (17:25)
--- NOTE | 2020-09-08 19:30 | P.PN ---
Subjective Progress Note Date: 09/08/20 Claribel Ruiz, is a 74-year-old female patient of Dr. stokes who presented to [facility] with a chief complaint of cough and shortness of breath, patient was transferred from [facility] she had elevated troponin level and positive Covid 19 testing she was evaluated in emergency room she was started on IV heparin [facility] in the relation non-ST elevation myocardial infarction with elevated troponin, patient also had elevated d-dimer at 3.[address] angiogram of the chest that was negative for pulmonary embolism however it was positive for extensive patchy groundglass opacities throughout the lungs. Patient was seen and examined in the emergency room she is alert and oriented 3 in no apparent distress she is maintained on oxygen via nasal cannula at 6 L there is no fever or chills no headache or dizziness she has cough and shortness of breath no chest pain no nausea or vomiting no abdominal pain no diarrhea no blood in the stools no burning with urination no frequency or urgency and no hematuria. On 08/28/2020 patient was seen and examined on the medical floor, she is alert and oriented 3 in no distress she is complaining of cough and shortness of breath she is complaining of generalized weakness otherwise she denies any complaints there is no fever or chills no headache or dizziness no chest pain no palpitation no nausea or vomiting no abdominal pain no diarrhea no blood in the stools no burning with urination no frequency or urgency no hematuria On 08/29/2020 patient was seen and examined on the medical floor, she is alert and oriented in no distress she is complaining of cough and shortness of breath she is complaining of generalized weakness, she is complaining of hemoorrhoides with pain and discomfort otherwise she denies any complaints there is no fever or chills no headache or dizziness no chest pain no palpitation no nausea or vomiting no abdominal pain no diarrhea no blood in the stools no burning with urination no frequency or urgency no hematuria On 08/30/2020 patient was seen and examined on the medical floor she is complaining of hemorrhoids with pain and bleeding she is complaining of shortness of breath and cough otherwise she denies any complaints there is no fever or chills no headache or dizziness no nausea or vomiting no abdominal pain no diarrhea no burning with urination no frequency or urgency no hematuria On 08/31/2020 patient was seen and examined on the medical floor she is still complaining of shortness of breath, cough and generalized weakness she is maintained on high flow oxygen otherwise she denies any complaints at this time there is no fever or chills no headache or dizziness no chest pain no nausea or vomiting no abdominal pain no diarrhea no blood in the stools no burning with urination no frequency or urgency and no hematuria On 09/01/2020 patient was seen and examined on the medical floor she is alert and oriented 3 she is still complaining of significant shortness of breath otherwise she denies any complaints she stated that she is having some pain in her legs and is requesting gabapentin 200 mg twice a day she stated that she was on that at home prior to admission although it was not listed on her home medication list. Otherwise patient denies any complaints there is no fever or chills no headache or dizziness no chest pain no nausea or vomiting no abdominal pain no diarrhea no blood in the stools no burning with urination no frequency or urgency and no hematuria. On 09/02/2020 patient was seen and examined on the medical floor, she is somnolant, responsive she is still complaining of generalized weakness shortness of breath fatigue and cough, she has poor oral intake, at this time, patient remains full code per her request, we will place a midline and start on TPN, consultation for infectious disease was initiated, condition is poor, prognosis is guarded On 09/03/2020 patient was seen and examined on the medical floor she is more alert today she is sitting up at the chair, yesterday she was very somnolent and she had almost no oral intake however today she is sitting up and she is having some food, at this time will hold plans for midline and TPN, Will consult nutrition to assess oral intake, will follow closely, patient is still com plaining of cough and shortness of breath otherwise she denies any complaints there is no fever or chills no headache or dizziness no chest pain no palpitation no nausea or vomiting no abdominal pain no diarrhea no burning with urination no frequency or urgency and no hematuria. On 09/04/2020 patient was seen and examined on the medical floor she is alert and oriented 3 she is sitting up in a chair he reports some improvement in her shortness of breath she is having some oral intake better than yesterday she is complaining of cough and generalized weakness otherwise she denies any complaint there is no fever or chills no headache or dizziness no chest pain no palpitation no nausea or vomiting no abdominal pain no diarrhea no blood in the stools no burning with urination no frequency or urgency no hematuria. CODE STATUS was discussed again today with patient and she still wish to be full code. On 09/05/2020 patient was seen and examined on the medical floor she is alert and oriented 3 in no distress there is some improvement in patient's symptoms and in her oxygen requirement since yesterday she is still complaining of severe shortness of breath with any activity she is complaining of cough and complaining of constipation otherwise she denies any complaints at this time there is no fever or chills no headache or dizziness no chest pain no palpitation no nausea or vomiting no abdominal pain no diarrhea no blood in the stools no burning with urination no frequency or urgency and no hematuria. On 09/06/2020 patient was seen and examined on the medical floor she is alert a nd oriented 3 in no apparent distress she is still complaining of cough and shortness of breath she is still maintained on high flow oxygen she is complaining of back and lower extremities pain she has a known history of scleroderma and osteoarthritis otherwise she denies any complaints there is no fever or chills no headache or dizziness no chest pain no nausea or vomiting no abdominal pain no diarrhea no blood in the stools no burning with urination no frequency or urgency and no hematuria. On 09/07/2020 patient was seen and examined on the medical floor she is alert and oriented in no distress she is sitting up in a chair she is still complaining of cough and shortness of breath otherwise she denies any complaints maintained on high flow oxygen there is no fever or chills no headache or dizziness no chest pain no nausea or vomiting no abdominal pain no diarrhea no blood in the stools no burning with urination no frequency or urgency and no hematuria On 09/08/2020 patient was seen and examined on the medical floor she is alert and oriented in no distress she is sitting up in a chair she is still complaining of cough and shortness of breath , however she is feeling better she is down to 4 L nasal cannula on her oxygen requirements otherwise she denies any complaints there is no fever or chills no headache or dizziness no chest pain no nausea or vomiting no abdominal pain no diarrhea no blood in the stools no burning with urination no frequency or urgency and no hematuria Objective - Vital Signs Vital signs: Vital Signs Temp 97.6 F 09/08/20 17:00 Pulse 53 L 09/08/20 17:00 Resp 19 09/08/20 17:00 BP 134/61 09/08/20 17:00 Pulse Ox 94 L 09/08/20 17:00 Intake & Output 09/08/20 09/08/20 09/09/20 06:59 18:59 06:59 Other: Voiding Method Diaper Diaper Incontinent Incontinent # Voids 1 2 - Exam In general patient is alert and oriented 3 in no apparent distress HEENT head normocephalic and atraumatic Neck is supple no JVD no goiter no lymphadenopathy Chest exam reveals fine crackles in both lung torres no wheezing Cardiac exam reveals regular heart sounds S1 and S2 no gallops no murmurs Abdomen is soft nontender no organomegaly with normal bowel sounds Extremity exam reveals minimal edema no cyanosis or clubbing Neurological examination reveals no gross focal neurological deficit - Labs CBC & Chem 7: 09/05/20 06:26 09/05/20 06:26 Assessment and Plan Plan: 1. Covid 19 pneumonia pulmonary consultation requested, patient will be started on Decadron and Remdesevir 2. Elevated troponin level, patient was seen by cardiology, it was felt that her troponin elevation is related to hypoxia there was no evidence of acute coronary syndrome 3. Underlying history of scoliosis with chronic back pain 4. Underlying history of Raynaud's syndrome 5. Underlying history of hypertension At this time medication and labs were reviewed Cardiology and pulmonary consultation requested Recheck labs and chest x-ray in a.m. Will follow closely
[2020-09-08] MEDS: ASPIRIN 81 MG PO SCH (21:29)
[2020-09-08] MEDS: MELATONIN 5 MG TABLET PO SCH (21:30)
[2020-09-09] MEDS: ACETAMINOPHEN TAB 325 MG TAB PO PRN ×2 (02:18→20:49)
[2020-09-09] MEDS: methylPREDNISolone SOD SUCCI 125 MG/2 ML VIAL IV SCH ×3 (05:22→18:17)
[2020-09-09] MEDS: GABAPENTIN 100 MG CAP PO SCH ×2 (08:38→20:48)
[2020-09-09] MEDS: FAMOTIDINE 20 MG TAB PO SCH ×2 (08:38→20:48)
[2020-09-09] MEDS: ENOXAPARIN 40 MG/0.4 ML SYRINGE SQ SCH ×2 (08:38→20:48)
[2020-09-09] MEDS: METOPROLOL TARTRATE 12.5 MG TAB PO SCH ×2 (08:38→20:48)
[2020-09-09] MEDS: ZINC SULFATE 220 MG CAP PO SCH (08:38)
[2020-09-09] MEDS: ASCORBIC ACID 500 MG TAB PO SCH (08:38)
[2020-09-09] MEDS: CHOLECALCIFEROL 1,000 UNIT TAB PO SCH (08:39)
[2020-09-09] MEDS: NYSTATIN 100,000 UNIT/ML SUSP 500,000 UNIT/5 ML CUP PO SCH ×4 (08:39→21:01)
[2020-09-09] MEDS: NIFEdipine XL 30 MG TAB.ER.24 PO SCH ×2 (08:40→20:41)
[2020-09-09] MEDS: HYDROCORTISONE SUPPOSITORY 25 MG SUPP RECTAL SCH ×2 (08:40→20:41)
[2020-09-09] MEDS: HYDROCORTISONE 2.5% RECTAL CREAM 30 GM TUBE RECTAL SCH ×3 (08:45→22:03)
--- NOTE | 2020-09-09 14:14 | P.PN ---
Subjective Progress Note Date: 09/09/20 Claribel Ruiz, is a 74-year-old female patient of Dr. stokes who presented to [facility] with a chief complaint of cough and shortness of breath, patient was transferred from [facility] she had elevated troponin level and positive Covid 19 testing she was evaluated in emergency room she was started on IV heparin [facility] in the relation non-ST elevation myocardial infarction with elevated troponin, patient also had elevated d-dimer at 3.[address] angiogram of the chest that was negative for pulmonary embolism however it was positive for extensive patchy groundglass opacities throughout the lungs. Patient was seen and examined in the emergency room she is alert and oriented 3 in no apparent distress she is maintained on oxygen via nasal cannula at 6 L there is no fever or chills no headache or dizziness she has cough and shortness of breath no chest pain no nausea or vomiting no abdominal pain no diarrhea no blood in the stools no burning with urination no frequency or urgency and no hematuria. On 08/28/2020 patient was seen and examined on the medical floor, she is alert and oriented 3 in no distress she is complaining of cough and shortness of breath she is complaining of generalized weakness otherwise she denies any complaints there is no fever or chills no headache or dizziness no chest pain no palpitation no nausea or vomiting no abdominal pain no diarrhea no blood in the stools no burning with urination no frequency or urgency no hematuria On 08/29/2020 patient was seen and examined on the medical floor, she is alert and oriented in no distress she is complaining of cough and shortness of breath she is complaining of generalized weakness, she is complaining of hemoorrhoides with pain and discomfort otherwise she denies any complaints there is no fever or chills no headache or dizziness no chest pain no palpitation no nausea or vomiting no abdominal pain no diarrhea no blood in the stools no burning with urination no frequency or urgency no hematuria On 08/30/2020 patient was seen and examined on the medical floor she is complaining of hemorrhoids with pain and bleeding she is complaining of shortness of breath and cough otherwise she denies any complaints there is no fever or chills no headache or dizziness no nausea or vomiting no abdominal pain no diarrhea no burning with urination no frequency or urgency no hematuria On 08/31/2020 patient was seen and examined on the medical floor she is still complaining of shortness of breath, cough and generalized weakness she is maintained on high flow oxygen otherwise she denies any complaints at this time there is no fever or chills no headache or dizziness no chest pain no nausea or vomiting no abdominal pain no diarrhea no blood in the stools no burning with urination no frequency or urgency and no hematuria On 09/01/2020 patient was seen and examined on the medical floor she is alert and oriented 3 she is still complaining of significant shortness of breath otherwise she denies any complaints she stated that she is having some pain in her legs and is requesting gabapentin 200 mg twice a day she stated that she was on that at home prior to admission although it was not listed on her home medication list. Otherwise patient denies any complaints there is no fever or chills no headache or dizziness no chest pain no nausea or vomiting no abdominal pain no diarrhea no blood in the stools no burning with urination no frequency or urgency and no hematuria. On 09/02/2020 patient was seen and examined on the medical floor, she is somnolant, responsive she is still complaining of generalized weakness shortness of breath fatigue and cough, she has poor oral intake, at this time, patient remains full code per her request, we will place a midline and start on TPN, consultation for infectious disease was initiated, condition is poor, prognosis is guarded On 09/03/2020 patient was seen and examined on the medical floor she is more alert today she is sitting up at the chair, yesterday she was very somnolent and she had almost no oral intake however today she is sitting up and she is having some food, at this time will hold plans for midline and TPN, Will consult nutrition to assess oral intake, will follow closely, patient is still com plaining of cough and shortness of breath otherwise she denies any complaints there is no fever or chills no headache or dizziness no chest pain no palpitation no nausea or vomiting no abdominal pain no diarrhea no burning with urination no frequency or urgency and no hematuria. On 09/04/2020 patient was seen and examined on the medical floor she is alert and oriented 3 she is sitting up in a chair he reports some improvement in her shortness of breath she is having some oral intake better than yesterday she is complaining of cough and generalized weakness otherwise she denies any complaint there is no fever or chills no headache or dizziness no chest pain no palpitation no nausea or vomiting no abdominal pain no diarrhea no blood in the stools no burning with urination no frequency or urgency no hematuria. CODE STATUS was discussed again today with patient and she still wish to be full code. On 09/05/2020 patient was seen and examined on the medical floor she is alert and oriented 3 in no distress there is some improvement in patient's symptoms and in her oxygen requirement since yesterday she is still complaining of severe shortness of breath with any activity she is complaining of cough and complaining of constipation otherwise she denies any complaints at this time there is no fever or chills no headache or dizziness no chest pain no palpitation no nausea or vomiting no abdominal pain no diarrhea no blood in the stools no burning with urination no frequency or urgency and no hematuria. On 09/06/2020 patient was seen and examined on the medical floor she is alert a nd oriented 3 in no apparent distress she is still complaining of cough and shortness of breath she is still maintained on high flow oxygen she is complaining of back and lower extremities pain she has a known history of scleroderma and osteoarthritis otherwise she denies any complaints there is no fever or chills no headache or dizziness no chest pain no nausea or vomiting no abdominal pain no diarrhea no blood in the stools no burning with urination no frequency or urgency and no hematuria. On 09/07/2020 patient was seen and examined on the medical floor she is alert and oriented in no distress she is sitting up in a chair she is still complaining of cough and shortness of breath otherwise she denies any complaints maintained on high flow oxygen there is no fever or chills no headache or dizziness no chest pain no nausea or vomiting no abdominal pain no diarrhea no blood in the stools no burning with urination no frequency or urgency and no hematuria On 09/08/2020 patient was seen and examined on the medical floor she is alert and oriented in no distress she is sitting up in a chair she is still complaining of cough and shortness of breath , however she is feeling better she is down to 4 L nasal cannula on her oxygen requirements otherwise she denies any complaints there is no fever or chills no headache or dizziness no chest pain no nausea or vomiting no abdominal pain no diarrhea no blood in the stools no burning with urination no frequency or urgency and no hematuria On 09/09/2020 patient was seen and examined on the medical floor she is alert and oriented 3 she is sitting up in a chair she is feeling better she has significant improvement in her cough and her shortness of breath she is still fairly weak and requires assistance to stand or walk she is maintained on oxygen via nasal cannula at 4 L/m there is no fever or chills no headache or dizziness no chest pain no nausea or vomiting no abdominal pain no diarrhea no blood in the stools no burning with urination no frequency or urgency and no hematuria, disability case manager and social service agency director working on transferring the patient to a rehab unit. Objective - Vital Signs Vital signs: Vital Signs Temp 97.3 F L 09/09/20 11:00 Pulse 63 09/09/20 11:00 Resp 18 09/09/20 11:00 BP 134/69 09/09/20 11:00 Pulse Ox 84 L 09/09/20 11:23 Intake & Output 09/08/20 09/09/20 09/09/20 18:59 06:59 18:59 Intake Total 1320 Output Total 900 0 Balance 420 0 Weight 73.5 kg Intake: Oral 1320 Output: Urine 900 Stool 0 0 Other: Voiding Method Diaper Diaper Diaper Incontinent Incontinent Incontinent # Voids 2 2 - Exam In general patient is alert and oriented 3 in no apparent distress HEENT head normocephalic and atraumatic Neck is supple no JVD no goiter no lymphadenopathy Chest exam reveals fine crackles in both lung torres no wheezing Cardiac exam reveals regular heart sounds S1 and S2 no gallops no murmurs Abdomen is soft nontender no organomegaly with normal bowel sounds Extremity exam reveals minimal edema no cyanosis or clubbing Neurological examination reveals no gross focal neurological deficit - Labs CBC & Chem 7: 09/05/20 06:26 09/05/20 06:26 Assessment and Plan Plan: 1. Covid 19 pneumonia pulmonary consultation requested, patient will be started on Decadron and Remdesevir 2. Elevated troponin level, patient was seen by cardiology, it was felt that her troponin elevation is related to hypoxia there was no evidence of acute cor onary syndrome 3. Underlying history of scoliosis with chronic back pain 4. Underlying history of Raynaud's syndrome 5. Underlying history of hypertension At this time medication and labs were reviewed Cardiology and pulmonary consultation requested Recheck labs and chest x-ray in a.m. Will follow closely
--- NOTE | 2020-09-09 14:44 | P.PN ---
Subjective Progress Note Date: 09/09/20 HISTORY OF PRESENT ILLNESS This is a 74-year-old female patient admitted to the hospital for COVID-19 pneu monia. Patient complains of minimal cough. No phlegm production. She denies having any chest pain. No abdominal pain. She denies any nausea vomiting or diarrhea. Patient has completed course of Remdesivir, status post convalescent plasma, and continued on steroids, Lovenox and supplements. Lung sounds are improving. Patient has been afebrile, heart rate 57, blood pressure 136/68, pulse ox 91-93% on high flow nasal cannula 15 L. 09/08: Patient denies any chest pain, cough, she denies shortness breath although she has been on AirVo and transition to 6 L high flow nasal cannula with pulse ox 100%. She has been afebrile, heart rate 62, blood pressure 124/68. No nausea, vomiting or diarrhea. 09/09: Patient denies any chest pain. Shortness of breath with exertion is mild. No cough. She has improvement of oral thrush. Patient denies abdominal symptoms including nausea, vomiting, diarrhea. She has been afebrile, pulse ox is 89% on 2 L nasal cannula, heart rate 63. Blood pressure 134/69. PHYSICAL EXAMINATION Gen: This is a 74-year-old female. Patient is sitting in a recliner and appears to be comfortable. HEENT: Head is atraumatic, normocephalic. Pupils equal, round. Sclerae is anicteric. LUNGS: Clear to auscultation. No wheezes or rhonchi. No intercostal retractions. HEART: Regular rate and rhythm. No murmur. ABDOMEN: Soft. Bowel sounds are present. No masses. No tenderness. EXTREMITIES: No pedal edema. NEUROLOGICAL: Patient is awake, alert and oriented x3. Generalized weakness. ASSESSMENT COVID-19 pneumonia History of scleroderma Oral thrush, improving PLAN Patient completed course of Remdesivir, status post convalescent plasma Continue Solu-Medrol 60 mg IV every 6 hours, Lovenox 40 mg subcu twice daily, zinc, vitamin C, vitamin D Continue oxygen therapy and attempt to wean. The above dictated assessment and findings were discussed with Dr. Wallace. The impression and plan of care have been directed as dictated. Antonieta Nguyen nurse practitioner acting as scribe for Dr. Wallace. Objective - Vital Signs Vital signs: Vital Signs Temp 97.3 F L 09/09/20 11:00 Pulse 63 09/09/20 11:00 Resp 18 09/09/20 11:00 BP 134/69 09/09/20 11:00 Pulse Ox 84 L 09/09/20 11:23 Intake & Output 09/08/20 09/09/20 09/09/20 18:59 06:59 18:59 Intake Total 1320 Output Total 900 0 Balance 420 0 Weight 73.5 kg Intake: Oral 1320 Output: Urine 900 Stool 0 0 Other: Voiding Method Diaper Diaper Diaper Incontinent Incontinent Incontinent # Voids 2 2 - Labs CBC & Chem 7: 09/05/20 06:26 09/05/20 06:26
--- NOTE | 2020-09-09 18:53 | P.PN ---
Subjective Progress Note Date: 09/09/20 Principal diagnosis: Acute hypoxic respiratory failure secondary to CoVID 19 pneumonitis This is a 74-year-old female with history of multiple medical problems including scleroderma, Raynaud's syndrome, patient was transferred yesterday from [facility] to [facility] with symptoms of shortness of breath, fever, and she was noted to have positive pcr covid 19. Patient was also noted to have elevated troponin level while at [place] [facility]. Patient was started on heparin at [facility] for presumptive non-ST elevation myocardial infarction, CT angiogram done at [place] showed extensive patchy groundglass opacities affecting both lungs. Patient required increase in her FiO2 up to 15 L flow per minute, and I was asked to see her on consultation. I saw this patient in the ER, she is now on 11 L high flow nasal cannula, and her O2 saturation is ranging anywhere between 91-95%. Patient is noted to be in no distress, her symptoms of shortness of breath are about 1 week in urination. After evaluating the patient, we recommended that the patient goes on the Covid 19 cocktail, and we initiated remdesivir. Patient clearly wished DO NOT RESU SCITATE CODE STATUS, hence we'll arrange for the patient to be transferred to a regular medical floor instead of transferred to the ICU. The patient is seen today 08/28/2020 in follow-up on the regular medical floor. She is currently sitting up in a chair at the bedside. Awake and alert in no ac juno distress. He states her breathing is a bit easier today compared to yesterday. Still dyspneic with minimal exertion. Still requiring 11 L high flow nasal cannula to maintain O2 saturations in the 90s. She's been afebrile. Hemodynamically stable. White count 9.7. Hemoglobin 11.1. Sodium 138. Potassium 4.5. Creatinine 0.6. This is day 2 of Remdesivir. She remains on dexamethasone, heparin drip for elevated troponin. On 08/29/2020 patient seen in follow-up on the medical surgical floor. She remains on high flow oxygen, per Airvo at 3 L/m, and FiO2 of 65%, and a pulse ox 93-94%, she's been afebrile, hemodynamically stable, does have tremors of breath with exertion, but breathing comfortably at rest, her last chest x-ray was on 08/19/2020 shown extensive pulmonary interstitial pneumonia. Patient continues on oral Decadron, she is on day 3 of Remdesivir treatment. Today's labs have been reviewed, showing white blood cell count of 13, hemoglobin of 10.6, electrolytes were unremarkable, renal profile was unremarkable. On 08/30/2020 patient seen in follow-up on medical surgical floor. She remains on high flow oxygen, currently at 3 L and FiO2 of 66%, her pulse ox of 92%, she is afebrile, hemodynamically she is stable, no worsening dyspnea, she is up in the chair, today is day 4 of Remdesivir treatment, her vital signs have been stable, she continues on heparin infusion she denies any chest pain. The patient is seen today 08/31/2020 in follow-up on the regular medical floor. She is currently resting in bed. She remains on the AirVo high flow oxygen device at 25 L and 70% FiO2 to maintain O2 saturations in the 90s. She's been afebrile. This will be day 5 of Remdesivir. The patient is seen today 09/01/2020 in follow-up on the regular medical floor. She is currently sitting up in a chair at the bedside. She is awake and alert. She is still quite dyspneic with minimal exertion. Chest x-ray continues to show bilateral infiltrates. She has completed her Remdesivir. She is still requiring AirVo at 25 L and 68% FiO2 to maintain O2 saturations in the 90s. Sputum culture pending. Blood culture reveals no growth. D-dimer 0.69. She remains on IV Solu-Medrol, bronchodilators, Lovenox, vitamin supplements. The patient is seen today 09/02/2020 in follow-up on the regular medical floor. She is awake and alert. She is dyspneic with minimal exertion. Dyspneic with conversation. She remains on AirVo high flow oxygen at 50 L and 90% FiO2. W brandon count 18.7. Hemoglobin 12.1. Sodium 139. Potassium 4.3. Creatinine 0.6. She remains on dexamethasone, bronchodilators, Lovenox, vitamin supplements. Chest x-ray revealed confluent groundglass infiltrates with some improvement in aeration of the upper lobes. Sitters at the bedside to assure the patient keeps her oxygen on. The patient is seen today 09/03/2020 in follow-up on the regular medical floor. She is currently sitting up in a chair at the bedside. Awake and alert in no acute distress. She does still require the AirVo high flow oxygen device at 50 L and 90% FiO2. She is afebrile. White count 9.5. Hemoglobin 11.9. Leukocyte 0.6. Sodium 130. Potassium 4.8. Creatinine 0.5. She remains on IV Solu- Medrol, bronchodilators, Lovenox 80 mg twice a day, vitamin supplements. The patient is seen today 09/04/2020 in follow-up on the regular medical floor. She is currently sitting up in a chair at the bedside. Awake and alert. She is quite dyspneic on minimal exertion. She remains on AirVo high flow oxygen at 50 L and 91% FiO2 to maintain O2 saturation in the high 80s low 90s. She's afebrile. Chest x-ray reveals slight worsening bilateral airspace disease. She remains on IV Solu-Medrol, bronchodilators, Lovenox 80 mg twice a day, vitamin supplements. She did receive convalescent plasma that was completed early this morning. The patient is seen today 09/09/2020 in follow-up on the regular medical floor. She is currently sitting up in a chair at the bedside. Awake and alert. Her main complaint is that of fatigue and weakness. No worsening shortness of breath, cough or congestion. He is maintaining O2 saturations on 4 L high flow nasal cannula in the 90s. Does dip into the 80s on 2 L. She remains on IV Solu-Medrol, Lovenox. Objective - Vital Signs Vital signs: Vital Signs Temp 97.4 F L 09/09/20 17:00 Pulse 53 L 09/09/20 17:00 Resp 18 09/09/20 17:00 BP 126/71 09/09/20 17:00 Pulse Ox 95 09/09/20 17:00 Intake & Output 09/08/20 09/09/20 09/09/20 18:59 06:59 18:59 Intake Total 1320 300 Output Total 900 0 Balance 420 300 Weight 73.5 kg Intake: Oral 1320 300 Output: Urine 900 Stool 0 0 Other: Voiding Method Diaper Diaper Diaper Incontinent Incontinent Incontinent # Voids 2 2 - Exam GENERAL EXAM: Alert, pleasant,frail 74-year-old female patient, on 4 L/m per nasal cannula, comfortable in no apparent distress. HEAD: Normocephalic. EYES: Normal reaction of pupils, equal size. NOSE: Clear with pink turbinates. THROAT: No erythema or exudates. NECK: No masses, no JVD. CHEST: No chest wall deformity. LUNGS: Equal air entry with basilar crackles, few scattered rhonchi, diminished CVS: S1 and S2 normal with no audible murmur, regular rhythm. ABDOMEN: No hepatosplenomegaly, normal bowel sounds, no guarding or rigidity. SPINE: No scoliosis or deformity SKIN: No rashes CENTRAL NERVOUS SYSTEM: No focal deficits, tone is normal in all 4 extremities. EXTREMITIES: There is no peripheral edema. No clubbing, no cyanosis. Peripheral pulses are intact. - Labs CBC & Chem 7: 09/05/20 06:26 12 06:26 Assessment and Plan Assessment: 1 Acute hypoxic respiratory failure secondary to CoVID 19 pneumonitis, improving and down to 4 L nasal cannula, completed Remdesivir, received convalescent plasma 2 History of scleroderma 3 History of Raynaud's syndrome 4 Hypertension 5 Troponin leak Plan: The patient was seen and evaluated by Dr. Woo Oxygen requirements have improved and she is down to 4 L/m per nasal cannula Plan is to transfer to [facility] for rehabilitation once cleared medically Prognosis is guarded I, the cosigning physician, performed a history & physical examination of the patient. Lungs sounds with basilar crackles, scattered rhonchi, diminished. Maintaining good O2 saturations in the 90s on 4 L/m per nasal cannula. I di scussed the assessment and plan of care with my nurse practitioner, Marti Espinoza. I attest to the above note as dictated by her.
[2020-09-09] MEDS: ASPIRIN 81 MG PO SCH (20:48)
[2020-09-09] MEDS: MELATONIN 5 MG TABLET PO SCH (20:48)
[2020-09-10] MEDS: methylPREDNISolone SOD SUCCI 125 MG/2 ML VIAL IV SCH ×3 (00:03→12:03)
[2020-09-10 00:32] VITALS: RESP 20
[2020-09-10] MEDS: ASCORBIC ACID 500 MG TAB PO SCH (09:06)
[2020-09-10] MEDS: CHOLECALCIFEROL 1,000 UNIT TAB PO SCH (09:06)
[2020-09-10] MEDS: ENOXAPARIN 40 MG/0.4 ML SYRINGE SQ SCH (09:07)
[2020-09-10] MEDS: METOPROLOL TARTRATE 12.5 MG TAB PO SCH (09:07)
[2020-09-10] MEDS: GABAPENTIN 100 MG CAP PO SCH (09:07)
[2020-09-10] MEDS: HYDROCORTISONE SUPPOSITORY 25 MG SUPP RECTAL SCH (09:07)
[2020-09-10] MEDS: FAMOTIDINE 20 MG TAB PO SCH (09:07)
[2020-09-10] MEDS: NIFEdipine XL 30 MG TAB.ER.24 PO SCH (09:08)
[2020-09-10] MEDS: NYSTATIN 100,000 UNIT/ML SUSP 500,000 UNIT/5 ML CUP PO SCH ×2 (09:08→12:03)
[2020-09-10] MEDS: ZINC SULFATE 220 MG CAP PO SCH (09:08)
[2020-09-10] MEDS: HYDROCORTISONE 2.5% RECTAL CREAM 30 GM TUBE RECTAL SCH (09:09)
[2020-09-10 11:10] VITALS: BP 124/71; PULSE 64; TEMP 97.9
--- NOTE | 2020-09-10 12:09 | P.DS ---
Providers Date of admission: 08/27/20 02:23 Expected date of discharge: 09/10/20 Attending physician: Akbar Swenson Consults: 08/27/20 02:24 Consult Physician Stat Consulting Provider: Sara Ortez Consult Reason/Comments: Critical care management Do you want consulting provider notified?: Already Contacted 08/27/20 12:38 Consult Physician Routine Consulting Provider: Sara Ortez Consult Reason/Comments: pneumonia Do you want consulting provider notified?: Yes 09/02/20 15:28 Consult Physician Routine Consulting Provider: Liam Wallace Consult Reason/Comments: Covid 19 Do you want consulting provider notified?: Yes Primary care physician: Darcy Araujo [facility] Hospital Course: Diagnosis on discharge: 1. Covid 19 pneumonia pulmonary consultation requested, patient received Decadron and Remdesevir and Lovenox she improved gradually 2. Elevated troponin level, patient was seen by cardiology, it was felt that her troponin elevation is related to hypoxia there was no evidence of acute coronary syndrome 3. Underlying history of scoliosis with chronic back pain 4. Underlying history of Raynaud's syndrome 5. Underlying history of hypertension 6. Underlying history of pulmonary fibrosis and secondary pulmonary hypertension 7. Underlying history of scleroderma 8. Hemorrhoids with pain and discomfort Hospital course: Claribel Ruiz, is a 74-year-old female patient of Dr. araujo who presented to [facility] with a chief complaint of cough and shortness of breath, patient was transferred from [facility] she had elevated troponin level and positive Covid 19 testing she was evaluated in emergency room she was started on IV heparin [facility] in the relation non-ST elevation myocardial infarction with elevated troponin, patient also had elevated d-dimer at 3.[address] angiogram of the chest that was negative for pulmonary embolism however it was positive for extensive patchy groundglass opacities throughout the lungs. Patient was seen and examined in the emergency room she is alert and oriented 3 in no apparent distress she is maintained on oxygen via nasal cannula at 6 L there is no fever or chills no headache or dizziness she has cough and shortness of breath no chest pain no nausea or vomiting no abdominal pain no diarrhea no blood in the stools no burning with urination no frequency or urgency and no hematuria. On 08/28/2020 patient was seen and examined on the medical floor, she is alert and oriented 3 in no distress she is complaining of cough and shortness of breath she is complaining of generalized weakness otherwise she denies any complaints there is no fever or chills no headache or dizziness no chest pain no palpitation no nausea or vomiting no abdominal pain no diarrhea no blood in the stools no burning with urination no frequency or urgency no hematuria On 08/29/2020 patient was seen and examined on the medical floor, she is alert and oriented in no distress she is complaining of cough and shortness of breath she is complaining of generalized weakness, she is complaining of hemoorrhoides with pain and discomfort otherwise she denies any complaints there is no fever or chills no headache or dizziness no chest pain no palpitation no nausea or vomiting no abdominal pain no diarrhea no blood in the stools no burning with urination no frequency or urgency no hematuria On 08/30/2020 patient was seen and examined on the medical floor she is complaining of hemorrhoids with pain and bleeding she is complaining of shortness of breath and cough otherwise she denies any complaints there is no fever or chills no headache or dizziness no nausea or vomiting no abdominal pain no diarrhea no burning with urination no frequency or urgency no hematuria On 08/31/2020 patient was seen and examined on the medical floor she is still complaining of shortness of breath, cough and generalized weakness she is maint ained on high flow oxygen otherwise she denies any complaints at this time there is no fever or chills no headache or dizziness no chest pain no nausea or vomiting no abdominal pain no diarrhea no blood in the stools no burning with urination no frequency or urgency and no hematuria On 09/01/2020 patient was seen and examined on the medical floor she is alert and oriented 3 she is still complaining of significant shortness of breath otherwise she denies any complaints she stated that she is having some pain in her legs and is requesting gabapentin 200 mg twice a day she stated that she was on that at home prior to admission although it was not listed on her home medication list. Otherwise patient denies any complaints there is no fever or chills no headache or dizziness no chest pain no nausea or vomiting no abdominal pain no diarrhea no blood in the stools no burning with urination no frequency or urgency and no hematuria. On 09/02/2020 patient was seen and examined on the medical floor, she is somnolant, responsive she is still complaining of generalized weakness shortness of breath fatigue and cough, she has poor oral intake, at this time, patient remains full code per her request, we will place a midline and start on TPN, consultation for infectious disease was initiated, condition is poor, prognosis is guarded On 09/03/2020 patient was seen and examined on the medical floor she is more alert today she is sitting up at the chair, yesterday she was very somnolent and she had almost no oral intake however today she is sitting up and she is having some food, at this time will hold plans for midline and TPN, Will consult nutrition to assess oral intake, will follow closely, patient is still complaining of cough and shortness of breath otherwise she denies any complaints there is no fever or chills no headache or dizziness no chest pain no palpitation no nausea or vomiting no abdominal pain no diarrhea no burning with urination no frequency or urgency and no hematuria. On 09/04/2020 patient was seen and examined on the medical floor she is alert and oriented 3 she is sitting up in a chair he reports some improvement in her shortness of breath she is having some oral intake better than yesterday she is complaining of cough and generalized weakness otherwise she denies any complaint there is no fever or chills no headache or dizziness no chest pain no pal pitation no nausea or vomiting no abdominal pain no diarrhea no blood in the stools no burning with urination no frequency or urgency no hematuria. CODE STATUS was discussed again today with patient and she still wish to be full code. On 09/05/2020 patient was seen and examined on the medical floor she is alert and oriented 3 in no distress there is some improvement in patient's symptoms and in her oxygen requirement since yesterday she is still complaining of severe shortness of breath with any activity she is complaining of cough and complaining of constipation otherwise she denies any complaints at this time there is no fever or chills no headache or dizziness no chest pain no palpitation no nausea or vomiting no abdominal pain no diarrhea no blood in the stools no burning with urination no frequency or urgency and no hematuria. On 09/06/2020 patient was seen and examined on the medical floor she is alert and oriented 3 in no apparent distress she is still complaining of cough and shortness of breath she is still maintained on high flow oxygen she is complaining of back and lower extremities pain she has a known history of scleroderma and osteoarthritis otherwise she denies any complaints there is no fever or chills no headache or dizziness no chest pain no nausea or vomiting no abdominal pain no diarrhea no blood in the stools no burning with urination no frequency or urgency and no hematuria. On 09/07/2020 patient was seen and examined on the medical floor she is alert and oriented in no distress she is sitting up in a chair she is still complaining of cough and shortness of breath otherwise she denies any complaints maintained on high flow oxygen there is no fever or chills no headache or dizziness no chest pain no nausea or vomiting no abdominal pain no diarrhea no blood in the stools no burning with urination no frequency or urgency and no hematuria On 09/08/2020 patient was seen and examined on the medical floor she is alert and oriented in no distress she is sitting up in a chair she is still complaining of cough and shortness of breath , however she is feeling better she is down to 4 L nasal cannula on her oxygen requirements otherwise she denies any complaints there is no fever or chills no headache or dizziness no chest pain no nausea or vomiting no abdominal pain no diarrhea no blood in the stools no burning with urination no frequency or urgency and no hematuria On 09/09/2020 patient was seen and examined on the medical floor she is alert and oriented 3 she is sitting up in a chair she is feeling better she has significant improvement in her cough and her shortness of breath she is still fairly weak and requires assistance to stand or walk she is maintained on oxygen via nasal cannula at 4 L/m there is no fever or chills no headache or dizziness no chest pain no nausea or vomiting no abdominal pain no diarrhea no blood in the stools no burning with urination no frequency or urgency and no hematuria, patient case coordinator and social insurance analyst working on transferring the patient to a rehab unit. On 09/10/2020 patient was seen and examined on the medical floor she is alert and oriented 3 in no apparent distress she is still maintained on oxygen 4 L via nasal cannula and her oxygen saturation is in the low 90s, she is tolerating well she is sitting up in a chair, her oxygen saturation drops down to the 80s when oxygen flow is decreased, at this time patient was evaluated by pulmonary and was cleared for discharge to a rehab facility, will discontinue IV Solu- Medrol and resume prednisone 10 mg by mouth daily, will follow as needed for medical management at the longterm. At the time of discharge patient is doing well she is alert and oriented 3 she is sitting up in a chair there is no fever or chills no headache or dizziness no chest pain no cough no nausea or vomiting no abdominal pain no diarrhea and no urinary symptoms Patient Condition at Discharge: Serious Plan - Discharge Summary Discharge Rx Participant: No New Discharge Prescriptions: New Hydrocortisone Suppository [Anusol-Hc] 25 mg RECTAL BID supp Aspirin 81 mg PO HS chew Metoprolol Tartrate [Lopressor] 12.5 mg PO BID tab Melatonin 5 mg PO HS tablet Nystatin 100,000 Unit/ml Susp [Mycostatin Oral Susp] 500,000 unit PO QID ml Gabapentin [Neurontin] 200 mg PO BID cap Zinc Sulfate [Orazinc] 220 mg PO DAILY cap Famotidine [Pepcid] 20 mg PO BID tab Hydrocortisone Pr Cream [Proctosol-Hc 2.5%] 1 applic RECTAL TID applic Ascorbic Acid [Vitamin C] 1,000 mg PO DAILY tab Continue NIFEdipine [Nifedical Xl] 30 mg PO BID Cholecalciferol [Vitamin D3 (25 Mcg = 1000 Iu)] 1,000 unit PO DAILY Acetaminophen [Tylenol Arthritis] 650 mg PO Q8H PRN PRN Reason: Pain Or Fever > 100.5 Pseudoephedrine 12Hr [Sudafed 12 Hour] 120 mg PO Q12H PRN PRN Reason: Cold Symptoms predniSONE 10 mg PO DAILY Mycophenolate Mofetil [Cellcept] 500 mg PO TID Alendronate Sodium [Binosto] 70 mg PO WE traMADol HCL 50 mg PO TID PRN PRN Reason: Pain Celecoxib [CeleBREX] 200 mg PO BID PRN PRN Reason: Pain Discharge Medication List NIFEdipine [Nifedical Xl] 30 mg PO BID 06/28/15 [History] Acetaminophen [Tylenol Arthritis] 650 mg PO Q8H PRN 08/27/20 [History] Alendronate Sodium [Binosto] 70 mg PO WE 08/27/20 [History] Cholecalciferol [Vitamin D3 (25 Mcg = 1000 Iu)] 1,000 unit PO DAILY 08/27/20 [History] Mycophenolate Mofetil [Cellcept] 500 mg PO TID 08/27/20 [History] Pseudoephedrine 12Hr [Sudafed 12 Hour] 120 mg PO Q12H PRN 08/27/20 [History] predniSONE 10 mg PO DAILY 08/27/20 [History] traMADol HCL 50 mg PO TID PRN 08/27/20 [History] Celecoxib [CeleBREX] 200 mg PO BID PRN 08/29/20 [History] Ascorbic Acid [Vitamin C] 1,000 mg PO DAILY tab 09/10/20 [Rx] Aspirin 81 mg PO HS chew 09/10/20 [Rx] Famotidine [Pepcid] 20 mg PO BID tab 09/10/20 [Rx] Gabapentin [Neurontin] 200 mg PO BID cap 09/10/20 [Rx] Hydrocortisone Pr Cream [Proctosol-Hc 2.5%] 1 applic RECTAL TID applic 09/10/20 [Rx] Hydrocortisone Suppository [Anusol-Hc] 25 mg RECTAL BID supp 09/10/20 [Rx] Melatonin 5 mg PO HS tablet 09/10/20 [Rx] Metoprolol Tartrate [Lopressor] 12.5 mg PO BID tab 09/10/20 [Rx] Nystatin 100,000 Unit/ml Susp [Mycostatin Oral Susp] 500,000 unit PO QID ml 09/10/20 [Rx] Zinc Sulfate [Orazinc] 220 mg PO DAILY cap 09/10/20 [Rx] Follow up Appointment(s)/Referral(s): Darcy Araujo MD [Primary Care Provider] - 1-2 days Activity/Diet/Wound Care/Special Instructions: Per Dr. Swenson, patient may be taken off isolation precautions.
--- NOTE | 2020-09-10 13:12 | P.PN ---
Subjective Progress Note Date: 09/10/20 b On 09/10/2020 patient is extremely weak. She is having difficulty with mobility. She cannot get herself from bed to a recliner and she needs help doing this. Her oxygenation however is improved. There is a significant decline in her oxygenation. Which was down titrated and currently she is down to 2 L of oxygen by nasal cannula. No significant cough or sputum production. On examination, she still having some crackles more so on the right compared to left. No thrush. No nausea. No vomiting. In fact she is hungry and she is looking forward for lunch. Objective - Vital Signs Vital signs: Vital Signs Temp 97.9 F 09/10/20 10:12 Pulse 64 09/10/20 10:12 Resp 20 09/10/20 10:12 BP 124/71 09/10/20 10:12 Pulse Ox 93 L 09/10/20 10:12 Intake & Output 09/09/20 09/10/20 09/10/20 18:59 06:59 18:59 Intake Total 300 500 Output Total 0 Balance 300 500 Weight 72.5 kg Intake: Oral 300 500 Output: Stool 0 Other: Voiding Method Diaper Diaper Diaper Incontinent Incontinent Incontinent # Voids 1 1 # Bowel Movements 1 1 - Exam - GENERAL EXAM: Alert, pleasant,frail 74-year-old female patient, on 2l of oxygen by nasal cannula, comfortable in no apparent distress.she is not using his m uscles of breathing and the patient seems to be quite comfortable at this point in time HEAD: Normocephalic. EYES: Normal reaction of pupils, equal size. NOSE: Clear with pink turbinates. THROAT: No erythema or exudates. NECK: No masses, no JVD. CHEST: No chest wall deformity. LUNGS: Equal air entry with basilar crackles, few scattered rhonchi, diminished CVS: S1 and S2 normal with no audible murmur, regular rhythm. ABDOMEN: No hepatosplenomegaly, normal bowel sounds, no guarding or rigidity. SPINE: No scoliosis or deformity SKIN: No rashes, skin changes consistent with scleroderma CENTRAL NERVOUS SYSTEM: No focal deficits, tone is normal in all 4 extremities. EXTREMITIES: There is no peripheral edema. No clubbing, no cyanosis. Peripheral pulses are intact. - Labs CBC & Chem 7: 09/05/20 06:26 09/05/20 06:26 Assessment and Plan Plan: 1 Acute hypoxic respiratory failure secondary to CoVID 19 pneumonitis,clinically improving currently on 2 L of oxygen by nasal cannula 2 History of scleroderma 3 History of Raynaud's syndrome 4 Hypertension 5 Troponin leak Plan: Received Remdesivir , steroids and convalescent plasma Currently on 2 L of oxygen by nasal cannula. Continue weaning the FiO2 down. Chest x-ray from yesterday is showing events bilateral airspace disease right more than left more so over the lung bases, this chest x-ray was from 09/04/2020. Lovenox half a dose twice a day as the patient d-dimer has dropped considerably. We will continue to follow Prognosis is guarded, we'll continue to follow. will need aggressive physical therapy.
== END 2020-09-10 15:29 | DRG 177 ==
LOC: EC 23:36 → 2SICU 08-27 02:23 → 4SSUR 08-27 14:03 → 6NMEDSUR 08-27 18:22
PROVIDERS: ADMIT Internal Medicine; ATTEND Internal Medicine
PROC: XW033E5 Introduction of Remdesivir Anti-infective into Peripheral Vein, Percutaneous Approach, New Technology Group 5 (ICD-10-PCS; principal; 2020-08-27)
PROC: XW13325 Transfusion of Convalescent Plasma (Nonautologous) into Peripheral Vein, Percutaneous Approach, New Technology Group 5 (ICD-10-PCS; 2020-09-04)
DX: U07.1 COVID-19 (principal); J80 Acute respiratory distress syndrome; J12.89 Other viral pneumonia; B37.0 Candidal stomatitis; I24.8 Other forms of acute ischemic heart disease; M34.9 Systemic sclerosis, unspecified; I27.29 Other secondary pulmonary hypertension; J84.10 Pulmonary fibrosis, unspecified; I10 Essential (primary) hypertension; I73.00 Raynaud's syndrome without gangrene; K59.00 Constipation, unspecified; K64.9 Unspecified hemorrhoids; M41.9 Scoliosis, unspecified; G89.29 Other chronic pain; I83.90 Asymptomatic varicose veins of unspecified lower extremity; M54.9 Dorsalgia, unspecified; R32 Unspecified urinary incontinence; M19.90 Unspecified osteoarthritis, unspecified site; Z79.899 Other long term (current) drug therapy; Z66 Do not resuscitate; Z88.1 Allergy status to other antibiotic agents; Z91.040 Latex allergy status; Z82.49 Family history of ischemic heart disease and other diseases of the circulatory system; Z82.5 Family history of asthma and other chronic lower respiratory diseases; Z82.0 Family history of epilepsy and other diseases of the nervous system
CPT/HCPCS: 36415; 71045; 71275; 80053; 83615; 84145; 84484; 85025; 85379; 85610; 85730; 86140; 86850; 86900; 86901; 93005; 93306; 94760; 96365; 96366; 96376; 99285

== ENCOUNTER 2020-09-11 10:49 | Inpatient (IN) | payer MEDICARE ==
[2020-09-11] MEDS ORDERED: FUROSEMIDE 10 MG/ML 4 ML VIAL IV STA (10:53)
[2020-09-11] MEDS ORDERED: IPRATROPIUM-ALBUTEROL 3 ML NEB INHALATION STA (10:53)
[2020-09-11 12:15] LABS: Anisocytosis Slight; Basophils # (A) 0.1 k/uL (0-0.2); Basophils % (A) 1 %; Eosinophils # (A) 0.1 k/uL (0-0.7); Eosinophils % (A) 1 %; HCT 38.8 % (34.0-46.0); HGB 12.2 gm/dL (11.4-16.0); Hypochromasia Slight; Lymphocytes # (A) 1.3 k/uL (1.0-4.8); Lymphocytes % (A) 12 %; MCH 27.2 pg (25.0-35.0); MCHC 31.5 g/dL (31.0-37.0); MCV 86.3 fL (80.0-100.0); Mean Platelet Volume 7.9; Monocytes # (A) 0.6 k/uL (0-1.0); Monocytes % (A) 6 %; Neutrophils # (A) 9.1 k/uL (1.3-7.7); Neutrophils % (A) 80 %; Platelet Count 224 k/uL (150-450); RDW 16.9 % (11.5-15.5); WBC 11.4 k/uL (3.8-10.6)
[2020-09-11 12:21] LABS: ALT 18 U/L (4-34); AST 21 U/L (14-36); African American GFR (CKD) >90 (>60 ml/min/1.73 sqM); Albumin 2.9 g/dL (3.5-5.0); Alkaline Phosphatase 64 U/L (38-126); Anion Gap 1 mmol/L; Blood Urea Nitrogen 23 mg/dL (7-17); Calcium 8.9 mg/dL (8.4-10.2); Carbon Dioxide 32 mmol/L (22-30); Chloride 104 mmol/L (98-107); Creatine Kinase <20 U/L (30-135); Glucose 84 mg/dL (74-99); Magnesium 2.2 mg/dL (1.6-2.3); Non-African American GFR(CKD) >90 (>60 ml/min/1.73 sqM); Sodium 137 mmol/L (137-145); Total Bilirubin 1.5 mg/dL (0.2-1.3); Total Protein 5.7 g/dL (6.3-8.2)
[2020-09-11 12:22] LABS: INR 1.1 (<1.2); Prothrombin Time 10.9 sec (9.0-12.0)
--- NOTE | 2020-09-11 12:22 | XR ---
EXAMINATION TYPE: XR chest 2V DATE OF EXAM: 09/11/2020 COMPARISON: 09/04/2020 INDICATION: Difficulty breathing, short of breath TECHNIQUE: Frontal and lateral views of the chest are obtained. FINDINGS: The heart size is normal. The pulmonary vasculature is prominent. Bibasilar infiltrates are present. IMPRESSION: 1. Mild increased infiltrates, slightly improved from comparison
--- NOTE | 2020-09-11 12:28 | ED ---
SOB HPI - General Chief Complaint: Shortness of Breath Stated Complaint: SOB Time Seen by Provider: 09/11/20 10:49 Source: patient, EMS, RN notes reviewed, old records reviewed Mode of arrival: EMS Limitations: no limitations - History of Present Illness Initial Comments: This is a 74-year-old female who was just discharged yesterday from this facility after being admitted for treatment of Covid 19, who presents with complaints of shortness of breath refractory to her medications. Patient brought in by EMS oxygen did seem to help. She did demonstrate audible wheezing. She denies any overt fevers chills sweats or chest pain at this time. Other complaints MD Complaint: shortness of breath - Related Data Home Medications Medication Instructions Recorded Confirmed NIFEdipine [Nifedical Xl] 30 mg PO BID@0800,199906/28/15 09/11/20 Acetaminophen [Tylenol Arthritis] 650 mg PO Q8H PRN 08/27/20 09/11/20 Alendronate Sodium [Binosto] 70 mg PO WE 08/27/20 09/11/20 Cholecalciferol [Vitamin D3 (25 1,000 unit PO DAILY 08/27/20 09/11/20 Mcg = 1000 Iu)] Mycophenolate Mofetil [Cellcept] 500 mg PO TID@0500,1300,209908/27/20 09/11/20 Pseudoephedrine 12Hr [Sudafed 12 120 mg PO Q12H PRN 08/27/20 09/11/20 Hour] predniSONE 10 mg PO DAILY 08/27/20 09/11/20 traMADol HCL 50 mg PO Q8H PRN 08/27/20 09/11/20 Celecoxib [CeleBREX] 200 mg PO Q12H PRN 08/29/20 09/11/20 Ascorbic Acid [Vitamin C] 1,000 mg PO HS 09/11/20 09/11/20 Gabapentin [Neurontin] 200 mg PO BID@0800,199909/11/20 09/11/20 Hydrocortisone Pr Cream 1 applic RECTAL TID@0500,1300,209909/11/20 09/11/20 [Proctosol-Hc 2.5%] Nystatin 100,000 Unit/ml Susp 500,000 unit PO Q6H 09/11/20 09/11/20 [Mycostatin Oral Susp] Zinc Sulfate [Orazinc] 220 mg PO HS 09/11/20 09/11/20 Previous Rx's Medication Instructions Recorded Aspirin 81 mg PO HS chew 09/10/20 Famotidine [Pepcid] 20 mg PO BID tab 09/10/20 Hydrocortisone Suppository 25 mg RECTAL BID supp 09/10/20 [Anusol-Hc] Melatonin 5 mg PO HS tablet 09/10/20 Metoprolol Tartrate [Lopressor] 12.5 mg PO BID tab 09/10/20 Allergies Allergy/AdvReac Type Severity Reaction Status Date / Time clindamycin HCl Allergy Rash/Hives Verified 09/11/20 12:28 [From Cleocin] clindamycin palmitate HCl Allergy Rash/Hives Verified 09/11/20 12:28 [From Cleocin] clindamycin phosphate Allergy Rash/Hives Verified 09/11/20 12:28 [From Cleocin] latex Allergy Rash/Hives Verified 09/11/20 12:28 Review of Systems ROS Statement: Those systems with pertinent positive or pertinent negative responses have been documented in the HPI. ROS Other: All systems not noted in ROS Statement are negative. 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 History of Any Multi-Drug Resistant Organisms: None Reported Past Surgical History: No Surgical Hx Reported Past Anesthesia/Blood Transfusion Reactions: No Reported Reaction Past Psychological History: No Psychological Hx Reported Smoking Status: Never smoker Past Alcohol Use History: None Reported Past Drug Use History: None Reported - Past Family History Mother Family Medical History: Dementia, Hypertension Additional Family Medical History / Comment(s): Lived until 102 Father Family Medical History: COPD Additional Family Medical History / Comment(s): in his late 60's from emphysema General Exam - General Exam Comments Initial Comments: This a well-developed asthenic appearing female who is awake alert oriented 3 Limitations: no limitations General appearance: alert, in no apparent distress Head exam: Present: atraumatic, normocephalic, normal inspection Eye exam: Present: normal appearance, PERRL, EOMI. Absent: scleral icterus, conjunctival injection, periorbital swelling ENT exam: Present: mucous membranes dry Neck exam: Present: normal inspection, full ROM. Absent: tenderness, meningismus, lymphadenopathy Respiratory exam: Present: decreased breath sounds, other (Right lower lobe rales and rhonchi.Wheezes audible). Absent: respiratory distress, wheezes, rales, rhonchi, stridor Cardiovascular Exam: Present: regular rate, normal rhythm, normal heart sounds. Absent: systolic murmur, diastolic murmur, rubs, gallop, clicks GI/Abdominal exam: Present: soft, normal bowel sounds. Absent: distended, tenderness, guarding, rebound, rigid Extremities exam: Present: full ROM, normal capillary refill, pedal edema (Bilateral pedal edema). Absent: tenderness, joint swelling, calf tenderness Back exam: Present: normal inspection Neurological exam: Present: alert, oriented X3, CN II-XII intact Psychiatric exam: Present: normal affect, normal mood Skin exam: Present: warm, dry, intact, normal color. Absent: rash Course Vital Signs 09/11/20 09/11/20 09/11/20 10:51 12:00 13:00 Temperature 97.6 F Pulse Rate 66 74 87 Respiratory 18 18 18 Rate Blood Pressure 135/57 144/75 141/72 O2 Sat by Pulse 90 L 91 L 93 L Oximetry - Reevaluation(s) Reevaluation #1: 09/11/20 14:13 EKG shows sinus rhythm with evidence of hematuria sure ventricular complexes rate 60 MT interval once 36 QRS 82 QT since QTC 446/[address]-T wave configuration noted Medical Decision Making - Medical Decision Making I did discuss findings with Dr. Swenson as well as the patient patient be readmitted for inpatient treatment and care feel outpatient treatment - Lab Data Result diagrams: 09/11/20 11:39 09/11/20 11:39 Lab Results 09/11/20 09/11/20 09/11/20 Range/Units 11:39 11:39 11:39 WBC 11.4 H (3.8-10.6) k/uL RBC 4.50 (3.80-5.40) m/uL Hgb 12.2 (11.4-16.0) gm/dL Hct 38.8 (34.0-46.0) % MCV 86.3 (80.0-100.0) fL MCH 27.2 (25.0-35.0) pg MCHC 31.5 (31.0-37.0) g/dL RDW 16.9 H (11.5-15.5) % Plt Count 224 (150-450) k/uL MPV 7.9 Neutrophils % 80 % Lymphocytes % 12 % Monocytes % 6 % Eosinophils % 1 % Basophils % 1 % Neutrophils # 9.1 H (1.3-7.7) k/uL Lymphocytes # 1.3 (1.0-4.8) k/uL Monocytes # 0.6 (0-1.0) k/uL Eosinophils # 0.1 (0-0.7) k/uL Basophils # 0.1 (0-0.2) k/uL Hypochromasia Slight Anisocytosis Slight PT 10.9 (9.0-12.0) sec INR 1.1 (<1.2) APTT 19.9 L (22.0-30.0) sec D-Dimer 1.71 H (<0.60) mg/L FEU Sodium 137 (137-145) mmol/L Potassium 4.0 (3.5-5.1) mmol/L Chloride 104 (98-107) mmol/L Carbon Dioxide 32 H (22-30) mmol/L Anion Gap 1 mmol/L BUN 23 H (7-17) mg/dL Creatinine 0.48 L (0.52-1.04) mg/dL Est GFR (CKD-EPI)AfAm >90 (>60 ml/min/1.73 sqM) Est GFR (CKD-EPI)NonAf >90 (>60 ml/min/1.73 sqM) Glucose 84 (74-99) mg/dL Plasma Lactic Acid Aime (0.7-2.0) mmol/L Calcium 8.9 (8.4-10.2) mg/dL Magnesium 2.2 (1.6-2.3) mg/dL Total Bilirubin 1.5 H (0.2-1.3) mg/dL AST 21 (14-36) U/L ALT 18 (4-34) U/L Alkaline Phosphatase 64 (38-126) U/L Creatine Kinase <20 L (30-135) U/L Troponin I (0.000-0.034) ng/mL NT-Pro-B Natriuret Pep pg/mL Total Protein 5.7 L (6.3-8.2) g/dL Albumin 2.9 L (3.5-5.0) g/dL 09/11/20 09/11/20 09/11/20 Range/Units 11:39 11:39 11:39 WBC (3.8-10.6) k/uL RBC (3.80-5.40) m/uL Hgb (11.4-16.0) gm/dL Hct (34.0-46.0) % MCV (80.0-100.0) fL MCH (25.0-35.0) pg MCHC (31.0-37.0) g/dL RDW (11.5-15.5) % Plt Count (150-450) k/uL MPV Neutrophils % % Lymphocytes % % Monocytes % % Eosinophils % % Basophils % % Neutrophils # (1.3-7.7) k/uL Lymphocytes # (1.0-4.8) k/uL Monocytes # (0-1.0) k/uL Eosinophils # (0-0.7) k/uL Basophils # (0-0.2) k/uL Hypochromasia Anisocytosis PT (9.0-12.0) sec INR (<1.2) APTT (22.0-30.0) sec D-Dimer (<0.60) mg/L FEU Sodium (137-145) mmol/L Potassium (3.5-5.1) mmol/L Chloride (98-107) mmol/L Carbon Dioxide (22-30) mmol/L Anion Gap mmol/L BUN (7-17) mg/dL Creatinine (0.52-1.04) mg/dL Est GFR (CKD-EPI)AfAm (>60 ml/min/1.73 sqM) Est GFR (CKD-EPI)NonAf (>60 ml/min/1.73 sqM) Glucose (74-99) mg/dL Plasma Lactic Acid Aime 1.1 (0.7-2.0) mmol/L Calcium (8.4-10.2) mg/dL Magnesium (1.6-2.3) mg/dL Total Bilirubin (0.2-1.3) mg/dL AST (14-36) U/L ALT (4-34) U/L Alkaline Phosphatase (38-126) U/L Creatine Kinase (30-135) U/L Troponin I 0.087 H* (0.000-0.034) ng/mL NT-Pro-B Natriuret Pep 840 pg/mL Total Protein (6.3-8.2) g/dL Albumin (3.5-5.0) g/dL - Radiology Data Radiology results: report reviewed (Imaging shows evidence of bilateral infiltrates questionable improvement from previous), image reviewed Disposition Clinical Impression: Viral pneumonia, COVID-19, Elevated d-dimer, Elevated troponin, Dehydration, Dyspnea, Bronchospasm, Failure of outpatient treatment Disposition: ADMITTED IP TO THIS HOSP Condition: Fair Referrals: Akbar Swenson MD [Primary Care Provider] - 1-2 days
[2020-09-11 12:37] LABS: Partial Thromboplastin Time 19.9 sec (22.0-30.0)
[2020-09-11 12:39] LABS: D-Dimer 1.71 mg/L FEU (<0.60)
[2020-09-11] MEDS ORDERED: ALBUTEROL HFA INHALER INHALATION STA (13:25)
[2020-09-11] MEDS ORDERED: methylPREDNISolone SOD SUCCI 125 MG/2 ML VIAL IV STA (15:22)
[2020-09-11] MEDS ORDERED: ACETAMINOPHEN TAB 325 MG TAB PO PRN (15:24)
[2020-09-11] MEDS ORDERED: PSEUDOEPHEDRINE 12HR 120 MG TABLET.ER PO PRN (15:24)
[2020-09-11] MEDS ORDERED: ENOXAPARIN 80 MG/0.8 ML SYRINGE SQ STA (15:24)
[2020-09-11] MEDS: traMADol 50 MG TAB PO PRN (15:46)
[2020-09-11] MEDS: NYSTATIN 100,000 UNIT/ML SUSP 500,000 UNIT/5 ML CUP PO SCH ×2 (17:10→23:47)
[2020-09-11] MEDS: methylPREDNISolone SOD SUCCI 125 MG/2 ML VIAL IV SCH ×2 (17:11→23:46)
--- NOTE | 2020-09-11 18:17 | CT ---
EXAMINATION TYPE: CT angio chest DATE OF EXAM: 09/11/2020 6:06 PM COMPARISON: CT 08/19/2020. Same-day radiograph. HISTORY: PE suspected. Shortness of breath. CT DLP: 199.4 mGycm Automated exposure control for dose reduction was used. CONTRAST: CTA scan of the thorax is performed with IV Contrast, patient injected with 100 mL of Isovue 370, pul monary embolism protocol. MIP images are created and reviewed. FINDINGS: LUNGS: There are ongoing bilateral diffuse moderate patchy airspace opacities, mildly decreased in th e upper midlungs, compared to the prior study. However pronounced in the lower lobes. There is no p leural effusion or pneumothorax seen. MEDIASTINUM: There is satisfactory enhancement of the pulmonary artery and its branches, there is no CT evidence for pulmonary embolism. There are no greater than 1 cm hilar or mediastinal lymph nodes. No pericardial effusion is seen. OTHER: No additional significant abnormality is seen. IMPRESSION: ONGOING BILATERAL DIFFUSE AIRSPACE DISEASE, MILDLY DECREASED IN THE UPPER MID LUNGS. NO EVIDENCE OF PE.
[2020-09-11] MEDS: GABAPENTIN 100 MG CAP PO SCH (20:08)
[2020-09-11] MEDS: NIFEdipine XL 30 MG TAB.ER.24 PO SCH (20:08)
[2020-09-11] MEDS: ASCORBIC ACID 500 MG TAB PO SCH (21:05)
[2020-09-11] MEDS: METOPROLOL TARTRATE 12.5 MG TAB PO SCH (21:05)
[2020-09-11] MEDS: ASPIRIN 81 MG PO SCH (21:05)
[2020-09-11] MEDS: FAMOTIDINE 20 MG TAB PO SCH (21:05)
[2020-09-11] MEDS: MELATONIN 5 MG TABLET PO SCH (21:05)
[2020-09-11] MEDS: HYDROCORTISONE 2.5% RECTAL CREAM 30 GM TUBE RECTAL SCH (21:06)
[2020-09-11] MEDS: HYDROCORTISONE SUPPOSITORY 25 MG SUPP RECTAL SCH (21:06)
[2020-09-12] MEDS: HYDROCORTISONE 2.5% RECTAL CREAM 30 GM TUBE RECTAL SCH ×3 (05:08→21:01)
[2020-09-12] MEDS: methylPREDNISolone SOD SUCCI 125 MG/2 ML VIAL IV SCH ×3 (05:08→18:07)
[2020-09-12] MEDS: NYSTATIN 100,000 UNIT/ML SUSP 500,000 UNIT/5 ML CUP PO SCH ×3 (05:08→18:07)
[2020-09-12] MEDS: ENOXAPARIN 80 MG/0.8 ML SYRINGE SQ SCH ×2 (05:09→18:07)
[2020-09-12 06:53] LABS: Glucose,Whole Blood 129 mg/dL (75-99)
[2020-09-12] MEDS: NIFEdipine XL 30 MG TAB.ER.24 PO SCH ×2 (08:22→20:58)
[2020-09-12] MEDS: METOPROLOL TARTRATE 12.5 MG TAB PO SCH ×2 (08:22→20:58)
[2020-09-12] MEDS: GABAPENTIN 100 MG CAP PO SCH ×2 (08:22→20:57)
[2020-09-12] MEDS: FAMOTIDINE 20 MG TAB PO SCH ×2 (08:22→20:57)
[2020-09-12] MEDS: CHOLECALCIFEROL 1,000 UNIT TAB PO SCH (08:22)
[2020-09-12] MEDS: HYDROCORTISONE SUPPOSITORY 25 MG SUPP RECTAL SCH ×2 (08:23→21:00)
[2020-09-12 11:47] LABS: Glucose,Whole Blood 141 mg/dL (75-99)
[2020-09-12 17:08] LABS: Glucose,Whole Blood 288 mg/dL (75-99)
--- NOTE | 2020-09-12 18:26 | P.HPIM ---
History of Present Illness H&P Date: 09/12/20 Claribel Ruiz, is a 74-year-old female who presented to [facility] emergency room with worsening shortness of breath, patient had a prolonged admission at [facility] for Covid 19 pneumonia with acute respiratory failure she was treated with Remdesevir, IV Steroids, convalescent plasma, and subcu Lovenox she improved very slowly she was transferred to assisted for rehab however after 24 hours patient developed severe shortness of breath and was transferred back to emergency room patient was evaluated in the emergency room CT angiogram of the chest was done in the emergency room due to severe shortness of breath or was no evidence of pulmonary embolism however patient had evidence of ongoing bilateral diffuse airspace disease she was restarted on IV Solu-Medrol and subcu Lovenox and admitted to medical floor pulmonary consultation was requested Patient has multiple underlying medical problems including scleroderma, history of pulmonary fibrosis and secondary pulmonary hypertension, history of hypertension, history of scoliosis. 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 Does NOT want to ever return there. Spouse was admitted to [facility] in [place] with covid. Pt last spoke to him 09/09 and currently doesnt know his status or whereabouts. Smoking Status: Never smoker Past Alcohol Use History: None Reported Past Drug Use History: None Reported - Past Family History Mother Family Medical History: Dementia, Hypertension Additional Family Medical History / Comment(s): Lived until 102 Father Family Medical History: COPD Additional Family Medical History / Comment(s): in his late 60's from emphysema Medications and Allergies Home Medications Medication Instructions Recorded Confirmed Type NIFEdipine [Nifedical Xl] 30 mg PO BID@799,199906/28/15 09/11/20 History Acetaminophen [Tylenol Arthritis] 650 mg PO Q8H PRN 08/27/20 09/11/20 History Alendronate Sodium [Binosto] 70 mg PO WE 08/27/20 09/11/20 History Cholecalciferol [Vitamin D3 (25 1,000 unit PO DAILY 08/27/20 09/11/20 History Mcg = 1000 Iu)] Mycophenolate Mofetil [Cellcept] 500 mg PO TID@0500,1300,209908/27/20 09/11/20 History Pseudoephedrine 12Hr [Sudafed 12 120 mg PO Q12H PRN 08/27/20 09/11/20 History Hour] predniSONE 10 mg PO DAILY 08/27/20 09/11/20 History traMADol HCL 50 mg PO Q8H PRN 08/27/20 09/11/20 History Celecoxib [CeleBREX] 200 mg PO Q12H PRN 08/29/20 09/11/20 History Aspirin 81 mg PO HS chew 09/10/20 09/11/20 Rx Famotidine [Pepcid] 20 mg PO BID tab 09/10/20 09/11/20 Rx Hydrocortisone Suppository 25 mg RECTAL BID supp 09/10/20 09/11/20 Rx [Anusol-Hc] Melatonin 5 mg PO HS tablet 09/10/20 09/11/20 Rx Metoprolol Tartrate [Lopressor] 12.5 mg PO BID tab 09/10/20 09/11/20 Rx Ascorbic Acid [Vitamin C] 1,000 mg PO HS 09/11/20 09/11/20 History Gabapentin [Neurontin] 200 mg PO BID@0800,199909/11/20 09/11/20 History Hydrocortisone Pr Cream 1 applic RECTAL TID@0500,1300,209909/11/20 09/11/20 History [Proctosol-Hc 2.5%] Nystatin 100,000 Unit/ml Susp 500,000 unit PO Q6H 09/11/20 09/11/20 History [Mycostatin Oral Susp] Zinc Sulfate [Orazinc] 220 mg PO HS 09/11/20 09/11/20 History Allergies Allergy/AdvReac Type Severity Reaction Status Date / Time clindamycin HCl Allergy Rash/Hives Verified 09/11/20 12:28 [From Cleocin] clindamycin palmitate HCl Allergy Rash/Hives Verified 09/11/20 12:28 [From Cleocin] clindamycin phosphate Allergy Rash/Hives Verified 09/11/20 12:28 [From Cleocin] latex Allergy Rash/Hives Verified 09/11/20 12:28 Physical Exam Vitals: Vital Signs Temp Pulse Pulse Resp BP BP Pulse Ox 09/12/20 13:58 97.4 F L 81 20 131/63 94 L 09/12/20 09:47 97.4 F L 64 26 H 118/59 96 09/12/20 05:30 98.4 F 53 L 14 117/65 96 09/12/20 02:55 97.8 F 70 18 123/65 92 L 09/11/20 21:50 97.2 F L 55 L 16 123/71 99 09/11/20 19:51 78 122/71 92 L 09/11/20 18:17 98.0 F 69 20 130/79 90 L 09/11/20 15:59 82 18 124/68 93 L Intake and Output 09/11/20 09/12/20 09/12/20 22:59 06:59 14:59 Output Total 650 Balance -650 Output: Urine 650 Other: Voiding Method Incontinent Weight 81.647 kg In general patient is alert and oriented 3 in no apparent distress HEENT head normocephalic and atraumatic Neck is supple no JVD no goiter no lymphadenopathy Chest exam reveals fine crackles in both lung torres no wheezing Cardiac exam reveals regular heart sounds S1 and S2 no gallops no murmurs Abdomen is soft nontender no organomegaly with normal bowel sounds Extremity exam reveals minimal edema no cyanosis or clubbing Neurological examination reveals no gross focal neurological deficit Results CBC & Chem 7: 09/11/20 11:39 09/11/20 11:39 Labs: Abnormal Lab Results - Last 24 Hours (Table) 09/12/20 09/12/20 Range/Units 06:51 11:46 POC Glucose (mg/dL) 129 H 141 H (75-99) mg/dL Microbiology - Last 24 Hours (Table) 09/11/20 11:39 Blood Culture - Preliminary Blood No Growth after 24 hours Thrombosis Risk Factor Assmnt - Choose All That Apply Each Risk Factor Represents 3 Points: Age 75 years or older Thrombosis Risk Factor Assessment Total Risk Factor Score: 3 Thrombosis Risk Factor Assessment Level: Moderate Risk Assessment and Plan Plan: 1. Acute hypoxic respiratory failure 2. Covid 19 pneumonia diagnosed 3 weeks ago 3. Underlying history of scleroderma 4. Underlying history of pulmonary fibrosis 5. Underlying history of pulmonary hypertension At this time patient is admitted to medical floor she was restarted on IV Decadron and subcu Lovenox home medications reviewed and reordered Will follow during this admission for medical management pulmonary consultation was requested
[2020-09-12 20:29] LABS: Glucose,Whole Blood 197 mg/dL (75-99)
[2020-09-12] MEDS: ZINC SULFATE 220 MG CAP PO SCH (20:57)
[2020-09-12] MEDS: MELATONIN 5 MG TABLET PO SCH (20:57)
[2020-09-12] MEDS: INSULIN ASPART (NovoLOG) 100 UNIT/ML VIAL SQ SCH (20:57)
[2020-09-12] MEDS: ASPIRIN 81 MG PO SCH (20:57)
[2020-09-12] MEDS: ASCORBIC ACID 500 MG TAB PO SCH (20:58)
[2020-09-13] MEDS: NYSTATIN 100,000 UNIT/ML SUSP 500,000 UNIT/5 ML CUP PO SCH ×4 (00:37→18:09)
[2020-09-13] MEDS: methylPREDNISolone SOD SUCCI 125 MG/2 ML VIAL IV SCH ×3 (00:38→13:35)
[2020-09-13] MEDS: HYDROCORTISONE 2.5% RECTAL CREAM 30 GM TUBE RECTAL SCH ×3 (06:19→21:29)
[2020-09-13 06:59] LABS: Glucose,Whole Blood 112 mg/dL (75-99)
[2020-09-13] MEDS: INSULIN ASPART (NovoLOG) 100 UNIT/ML VIAL SQ SCH ×4 (07:01→21:29)
[2020-09-13 07:22] LABS: Anisocytosis Slight; Basophils # (A) 0.1 k/uL (0-0.2); Basophils % (A) 1 %; Eosinophils # (A) 0.1 k/uL (0-0.7); Eosinophils % (A) 0 %; HCT 32.1 % (34.0-46.0); HGB 10.2 gm/dL (11.4-16.0); Hypochromasia Slight; Lymphocytes % (A) 7 %; MCH 27.5 pg (25.0-35.0); MCHC 31.6 g/dL (31.0-37.0); MCV 86.8 fL (80.0-100.0); Mean Platelet Volume 8.7; Monocytes # (A) 0.8 k/uL (0-1.0); Monocytes % (A) 6 %; Neutrophils # (A) 11.9 k/uL (1.3-7.7); Neutrophils % (A) 85 %; Platelet Count 211 k/uL (150-450); RDW 17.3 % (11.5-15.5); WBC 13.9 k/uL (3.8-10.6)
[2020-09-13] MEDS: NIFEdipine XL 30 MG TAB.ER.24 PO SCH ×2 (09:23→21:09)
[2020-09-13] MEDS: METOPROLOL TARTRATE 12.5 MG TAB PO SCH ×2 (09:23→21:30)
[2020-09-13] MEDS: FAMOTIDINE 20 MG TAB PO SCH ×2 (09:23→21:07)
[2020-09-13] MEDS: ENOXAPARIN 80 MG/0.8 ML SYRINGE SQ SCH (09:23)
[2020-09-13] MEDS: GABAPENTIN 100 MG CAP PO SCH ×2 (09:23→21:10)
[2020-09-13] MEDS: CHOLECALCIFEROL 1,000 UNIT TAB PO SCH (09:23)
[2020-09-13] MEDS: HYDROCORTISONE SUPPOSITORY 25 MG SUPP RECTAL SCH ×2 (10:49→21:29)
[2020-09-13 12:05] LABS: Glucose,Whole Blood 173 mg/dL (75-99)
[2020-09-13 13:24] LABS: African American GFR (CKD) 118.1 (60.0-200.0); Anion Gap 8.2 mmol/L (4.00-12.00); BUN/Creat Ratio 57.5 Ratio (12.00-20.00); Calcium 8.6 mg/dL (8.7-10.3); Carbon Dioxide 27.8 mmol/L (21.6-31.8); Non-African American GFR(CKD) 101.9 (60.0-200.0); Potassium 4.5 mmol/L (3.5-5.5)
--- NOTE | 2020-09-13 14:02 | P.CNPUL ---
History of Present Illness Consult date: 09/13/20 Reason for consult: other Chief complaint: Generalized weakness, recent history of COVID 19 pneumonitis History of present illness: This is a 74-year-old white female patient of Dr. Swenson, who was recently hospitalized for a period of time from 08/27/2020 through 09/10/2024 acute COVID 19 pneumonia, patient had completed a course of Decadron, Remdesivir, and she received anticoagulation while in the hospital. She did require prolonged hospitalization during which she was requiring high flow oxygen per [employer], which was gradually weaned down, to 4 L/m, patient remained generally very weak, however she was improving, she was discharged to rehab facility, on 09/10/2020, however when the patient got there she was not happy with the care that she was getting there, and she remained quite weak, and she thought she should return to the hospital. On 09/11/2020 patient was brought back to the hospital per EMS, apparently patient also stated down increased shortness of breath, denies any fever or chills, denied any chest pain or sweats, no nausea vomiting or diarrhea. Chest x-ray was obtained showing evidence of bilateral infiltrates , stable in appearance from previous chest x-ray. Her lab work was reviewed, showing white blood cell count of 11.4, hemoglobin 12.2, her d-dimer is 1.71, and this is improved from 3.54 from previous admission, CO2 is 32, the rest of the electrolytes are unremarkable, BUN is 23, creatinine is 0.48, total bilirubin was 1.5, her troponin was mildly elevated to 0.08, and 0.045. And they are trending down from her previous admission. She denied any chest discomfort, her proBNP was 840. She is currently on 6 L of oxygen, with a pulse ox of 97-99%, hemodynamically she is stable, she's been afebrile, CT angios the chest was obtained showing ongoing bilateral diffuse airspace disease, mildly decreased in the upper mid lungs, and no evidence of pulmonary embolism. Suraj parker remains on therapeutic doses of Lovenox at 80 mg by mouth twice daily, she is on IV Solu-Medrol 60 mg every 6 hours. Review of Systems All systems: negative Constitutional: Denies chills, Denies fever Eyes: denies blurred vision, denies pain Ears, nose, mouth and throat: Denies headache, Denies sore throat Cardiovascular: Denies chest pain, Denies shortness of breath Respiratory: Reports dyspnea, Denies cough Gastrointestinal: Denies abdominal pain, Denies diarrhea, Denies nausea, Denies vomiting Genitourinary: Denies dysuria, Denies hematuria Musculoskeletal: Denies myalgias Integumentary: Denies pruritus, Denies rash Neurological: Denies numbness, Denies weakness Psychiatric: Denies anxiety, Denies depression Endocrine: Denies fatigue, Denies weight change 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 Does NOT want to ever return there. Spouse was admitted to [facility] in [place] with [facility]. Pt last spoke to him 09/09 and currently doesnt know his status or whereabouts. Smoking Status: Never smoker Past Alcohol Use History: None Reported Past Drug Use History: None Reported - Past Family History Mother Family Medical History: Dementia, Hypertension Additional Family Medical History / Comment(s): Lived until 102 Father Family Medical History: COPD Additional Family Medical History / Comment(s): in his late 60's from emphysema Medications and Allergies Home Medications Medication Instructions Recorded Confirmed Type NIFEdipine [Nifedical Xl] 30 mg PO BID@0800,199906/28/15 09/11/20 History Acetaminophen [Tylenol Arthritis] 650 mg PO Q8H PRN 08/27/20 09/11/20 History Alendronate Sodium [Binosto] 70 mg PO WE 08/27/20 09/11/20 History Cholecalciferol [Vitamin D3 (25 1,000 unit PO DAILY 08/27/20 09/11/20 History Mcg = 1000 Iu)] Mycophenolate Mofetil [Cellcept] 500 mg PO TID@0500,1300,2100 08/27/20 09/11/20 History Pseudoephedrine 12Hr [Sudafed 12 120 mg PO Q12H PRN 08/27/20 09/11/20 History Hour] predniSONE 10 mg PO DAILY 08/27/20 09/11/20 History traMADol HCL 50 mg PO Q8H PRN 08/27/20 09/11/20 History Celecoxib [CeleBREX] 200 mg PO Q12H PRN 08/29/20 09/11/20 History Aspirin 81 mg PO HS chew 09/10/20 09/11/20 Rx Famotidine [Pepcid] 20 mg PO BID tab 09/10/20 09/11/20 Rx Hydrocortisone Suppository 25 mg RECTAL BID supp 09/10/20 09/11/20 Rx [Anusol-Hc] Melatonin 5 mg PO HS tablet 09/10/20 09/11/20 Rx Metoprolol Tartrate [Lopressor] 12.5 mg PO BID tab 09/10/20 09/11/20 Rx Ascorbic Acid [Vitamin C] 1,000 mg PO HS 09/11/20 09/11/20 History Gabapentin [Neurontin] 200 mg PO BID@0800,2000 09/11/20 09/11/20 History Hydrocortisone Pr Cream 1 applic RECTAL TID@0500,1300,209909/11/20 09/11/20 History [Proctosol-Hc 2.5%] Nystatin 100,000 Unit/ml Susp 500,000 unit PO Q6H 09/11/20 09/11/20 History [Mycostatin Oral Susp] Zinc Sulfate [Orazinc] 220 mg PO HS 09/11/20 09/11/20 History Allergies Allergy/AdvReac Type Severity Reaction Status Date / Time clindamycin HCl Allergy Rash/Hives Verified 09/11/20 12:28 [From Cleocin] clindamycin palmitate HCl Allergy Rash/Hives Verified 09/11/20 12:28 [From Cleocin] clindamycin phosphate Allergy Rash/Hives Verified 09/11/20 12:28 [From Cleocin] latex Allergy Rash/Hives Verified 09/11/20 12:28 Physical Exam Vitals: Vital Signs Temp Pulse Pulse Resp BP Pulse Ox 09/13/20 10:00 97.7 F 54 L 18 125/63 97 12/15/20 07:25 54 L 18 09/13/20 05:40 97.4 F L 49 L 146/71 99 09/13/20 01:53 97 F L 54 L 162/77 100 09/12/20 21:51 97.8 F 64 20 126/77 97 09/12/20 20:00 20 09/12/20 17:48 98.1 F 58 L 20 142/59 97 09/12/20 13:58 97.4 F L 81 20 131/63 94 L Intake and Output 09/12/20 09/13/20 09/13/20 22:59 06:59 14:59 Output Total 300 300 Balance -300 -300 Output: Urine 300 300 Other: Voiding Method Diaper Diaper Incontinent Incontinent # Voids 3 3 # Bowel Movements 1 1 GENERAL EXAM: Alert, 74-year-old white female, on 6 L of oxygen and the pulse ox of 97-99% comfortable in no apparent distress. HEAD: Normocephalic/atraumatic. EYES: Normal reaction of pupils, equal size. Conjunctiva pink, sclera white. NOSE: Clear with pink turbinates. THROAT: No erythema or exudates. NECK: No masses, no JVD, no thyroid enlargement, no adenopathy. CHEST: No chest wall deformity. Symmetrical expansion. LUNGS: Equal air entry with no crackles, wheeze, rhonchi or dullness. CVS: Regular rate and rhythm, normal S1 and S2, no gallops, no murmurs, no rubs ABDOMEN: Soft, nontender. No hepatosplenomegaly, normal bowel sounds, no guarding or rigidity. EXTREMITIES: No clubbing, no edema, no cyanosis, 2+ pulses and upper and lower extremities. MUSCULOSKELETAL: Muscle strength and tone normal. SPINE: No scoliosis or deformity SKIN: No rashes CENTRAL NERVOUS SYSTEM: Alert and oriented -3. No focal deficits, tone is normal in all 4 extremities. PSYCHIATRIC: Alert and oriented -3. Appropriate affect. Intact judgment and insight. Results - Laboratory Findings CBC and BMP: 09/13/20 06:06 09/13/20 06:06 PT/INR, D-dimer PT 10.9 sec (9.0-12.0) 09/11/20 11:39 INR 1.1 (<1.2) 09/11/20 11:39 D-Dimer 1.71 mg/L FEU (<0.60) H 09/11/20 11:39 Abnormal lab findings: Abnormal Labs 09/11/20 09/11/20 09/11/20 11:39 11:39 11:39 WBC 11.4 H RBC Hgb Hct RDW 16.9 H Neutrophils # 9.1 H APTT 19.9 L D-Dimer 1.71 H Carbon Dioxide 32 H BUN 23 H Creatinine 0.48 L BUN/Creatinine Ratio Glucose POC Glucose (mg/dL) Calcium Total Bilirubin 1.5 H Creatine Kinase <20 L Troponin I Total Protein 5.7 L Albumin 2.9 L 09/11/20 09/12/20 09/12/20 11:39 06:51 11:46 WBC RBC Hgb Hct RDW Neutrophils # APTT D-Dimer Carbon Dioxide BUN Creatinine BUN/Creatinine Ratio Glucose POC Glucose (mg/dL) 129 H 141 H Calcium Total Bilirubin Creatine Kinase Troponin I 0.087 H* Total Protein Albumin 09/12/20 09/12/20 09/12/20 16:25 17:06 20:27 WBC RBC Hgb Hct RDW Neutrophils # APTT D-Dimer Carbon Dioxide BUN Creatinine BUN/Creatinine Ratio Glucose POC Glucose (mg/dL) 288 H 197 H Calcium Total Bilirubin Creatine Kinase Troponin I 0.045 H* Total Protein Albumin 09/13/20 09/13/20 09/13/20 06:06 06:06 06:58 WBC 13.9 H RBC 3.70 L Hgb 10.2 L Hct 32.1 L RDW 17.3 H Neutrophils # 11.9 H APTT D-Dimer Carbon Dioxide BUN Creatinine 0.4 L BUN/Creatinine Ratio 57.50 H Glucose 111 H POC Glucose (mg/dL) 112 H Calcium 8.6 L Total Bilirubin Creatine Kinase Troponin I Total Protein Albumin 09/13/20 12:03 WBC RBC Hgb Hct RDW Neutrophils # APTT D-Dimer Carbon Dioxide BUN Creatinine BUN/Creatinine Ratio Glucose POC Glucose (mg/dL) 173 H Calcium Total Bilirubin Creatine Kinase Troponin I Total Protein Albumin - Diagnostic Findings Chest x-ray: report reviewed, image reviewed CT scan - chest: report reviewed, image reviewed Additional studies: EKG was reviewed Assessment and Plan Plan: Assessment: #1. Acute hypoxic respiratory failure, ongoing, has improved over the course of the last several weeks, related to recent history of COVID 19 pneumonia, currently requiring 6 L of oxygen, pulse ox of 97-99%, this can probably be further wean down #2. Slightly improved bilateral airspace disease related to recent history of COVID 19 pneumonia #3. Elevated d-dimer of 1.72, trending down from recent hospitalization for acute COVID 19 pneumonitis, with no evidence of pulmonary embolism on the CT chest #4. Elevated troponins, trending down from her most recent hospitalization #5. Recent hospitalization from 08/27/2020 through 09/10/2020 patient completed a course of Remdesivir, IV steroids, and doses of anticoagulation, she required high flow oxygen per [employer], which was gradually weaned down, and patient was discharged to ECF for rehabilitation on 09/10/2020 on 4 L/m #6. History of scleroderma #7. History of Raynaud's syndrome #8. History of hypertension #9. Generalized weakness Plan: CTA chest has been reviewed, chest x-ray reviewed, patient still has evidence of bilateral airspace disease, maybe mildly improved from her most recent admission, wean FiO2 to keep O2 sat between 92-94%, no worsening dyspnea, patient appears to be very comfortable, continue Pepcid, continue vitamins, we will cut back on IV steroids to 40 mg every 8 hours, we'll cut back the therapeutic doses of Lovenox to prophylactic dose 40 mg daily, her d-dimer is actually trending down from her most previous admission, no PE on CTA, her troponins are trending down, no complaints of chest pain, no worsening dyspnea, patient appears to be very comfortable, we'll continue to monitor, she will need placement in the possibly in the different ECF or possibly home, consult discharge planning. I performed a history & physical examination of the patient and discussed their management with my nurse practitioner, Teagan Ceron. I reviewed the nurse practitioner's note and agree with the documented findings and plan of care. Lung sounds are positive for diminished breath sounds. The findings and the impression was discussed with the patient. I attest to the documentation by the nurse practitioner. Time with Patient: Greater than 30
--- NOTE | 2020-09-13 14:06 | P.CRDCN ---
History of Present Illness History of present illness: HISTORY OF PRESENTING ILLNESS This is a pleasant 74-year-old female past medical history significant for scleroderma and reynauds. She denies prior history of coronary artery disea se and does not follow in the office with a ocean biologist. We have been asked to see in consultation for chest pain. She was recently diagnosed with COVID and was treated in the hospital. We had seen her on that admission secondary to elevated troponin. An echo was obtained revealing preserved LV systolic function with EF 50-55%, mild MR , mild TR, mild mitral valve prolapse and mild pulmonary hypertension with RVSP 43 mmHg. During that admission she states she did not have any chest pain or exertional shortness of breath. Her troponins peaked at 0.53. She was discharged to [facility] 09/10. She returned to ER with complaints of worsening shortness of breath and chest pressure. Her troponins are again elevated however are coming down. She is seen and examined resting comfortably in no acute distress. She states her chest pressure has subsided. DIAGNOSTICS EKG reveals sinus mechanism with heart rate 60 with T-wave inversion in the inferior and precordial leads. These are changes from EKG obtained 08/27/20. Telemetry tracings indicate sinus rhythm with no acute arrhythmia noted. Chest xray mild increased infiltrates slightly improved from previous study. CTA negative for PE with ongoing bilateraly diffuse airspace disease with mildly decreased upper-mid lungs. Laboratory reviewed, WBC 11.4, hemoglobin 12.2, platelets 224, d-dimer 1.71, sodium 137, potassium 4.0, creatinine 0.48, magnesium 2.2, troponin 0.087, 0.045 and proBNP 840. Current cardiac medications include metoprolol 12.5 mg twice a day, nifedipine 30 mg twice a day and aspirin 81 mg chanel. REVIEW OF SYSTEMS At the time of my exam: CONSTITUTIONAL: Denies fever or chills. CARDIOVASCULAR: Denies chest pain, shortness of breath, orthopnea, PND or palpitations. RESPIRATORY: Denies cough. GASTROINTESTINAL: Denies abdominal pain, diarrhea, constipation, nausea or vomiting. MUSCULOSKELETAL: Denies myalgias. NEUROLOGIC: Denies numbness, tingling or weakness. ENDOCRINE: Denies fatigue, weight change, polydipsia or polyurina. GENITOURINARY: Denies burning, hematuria or urgency with micturation. HEMATOLOGIC: Denies history of anemia or bleeding. PHYSICAL EXAMINATION Blood pressure 125/63 heart rate 54 afebrile and maintaining oxygen saturation on nasal cannula. CONSTITUTIONAL: No apparent distress. Appears older than stated age. HEENT: Head is normocephalic. Pupils are equal, round. Sclerae anicteric. Mucous membranes of the mouth are moist. No JVD. No carotid bruit. CHEST EXAMINATION: Scattered rhonchi. No rales or wheezes. No chest wall tenderness is noted on palpation or with deep breathing. HEART EXAMINATION: Regular rate and rhythm. S1, S2 heard. No murmurs, gallops or rub. ABDOMEN: Soft, nontender. Positive bowel sounds. EXTREMITIES: 2+ peripheral pulses, no lower extremity edema and no calf tenderness. NEUROLOGIC EXAMINATION: Patient is awake, alert and oriented x3. ASSESSMENT COVID 19 Chest pain Abnormal troponin Hypertension Scleroderma PLAN Previous admission her troponins were elevated but she had no symptoms of chest pressure throughout her hospital stay. In the last 24 hours she did develop some chest pressure at rest. We will repeat a limited echo to assess LV function. Continue aspirin and lopressor. Initiate atorvastatin 20 mg daily. Discussed with her the possibility of underlying CAD and the need for either stress testing or catherization down the road when her COVID has improved. She states she would not like to pursue and further testing like that and would opt for medical therapy regardless. If echo is benign we will follow along as needed. Thank you kindly for this consultation. Nurse Practitioner note has been reviewed, I agree with a documented findings and plan of care. Patient was seen and examined. 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 Does NOT want to ever return there. Spouse was admitted to [facility] in [place] with covid. Pt last spoke to him 09/09 and currently doesnt know his status or whereabouts. Smoking Status: Never smoker Past Alcohol Use History: None Reported Past Drug Use History: None Reported - Past Family History Mother Family Medical History: Dementia, Hypertension Additional Family Medical History / Comment(s): Lived until 102 Father Family Medical History: COPD Additional Family Medical History / Comment(s): in his late 60's from emp hysema Medications and Allergies Home Medications Medication Instructions Recorded Confirmed Type NIFEdipine [Nifedical Xl] 30 mg PO BID@799,199906/28/15 09/11/20 History Acetaminophen [Tylenol Arthritis] 650 mg PO Q8H PRN 08/27/20 09/11/20 History Alendronate Sodium [Binosto] 70 mg PO WE 08/27/20 09/11/20 History Cholecalciferol [Vitamin D3 (25 1,000 unit PO DAILY 08/27/20 09/11/20 History Mcg = 1000 Iu)] Mycophenolate Mofetil [Cellcept] 500 mg PO TID@0500,1300,2100 08/27/20 09/11/20 History Pseudoephedrine 12Hr [Sudafed 12 120 mg PO Q12H PRN 08/27/20 09/11/20 History Hour] predniSONE 10 mg PO DAILY 08/27/20 09/11/20 History traMADol HCL 50 mg PO Q8H PRN 08/27/20 09/11/20 History Celecoxib [CeleBREX] 200 mg PO Q12H PRN 08/29/20 09/11/20 History Aspirin 81 mg PO HS chew 09/10/20 09/11/20 Rx Famotidine [Pepcid] 20 mg PO BID tab 09/10/20 09/11/20 Rx Hydrocortisone Suppository 25 mg RECTAL BID supp 09/10/20 09/11/20 Rx [Anusol-Hc] Melatonin 5 mg PO HS tablet 09/10/20 09/11/20 Rx Metoprolol Tartrate [Lopressor] 12.5 mg PO BID tab 09/10/20 09/11/20 Rx Ascorbic Acid [Vitamin C] 1,000 mg PO HS 09/11/20 09/11/20 History Gabapentin [Neurontin] 200 mg PO BID@0800,199909/11/20 09/11/20 History Hydrocortisone Pr Cream 1 applic RECTAL TID@0500,1300,2100 09/11/20 09/11/20 History [Proctosol-Hc 2.5%] Nystatin 100,000 Unit/ml Susp 500,000 unit PO Q6H 09/11/20 09/11/20 History [Mycostatin Oral Susp] Zinc Sulfate [Orazinc] 220 mg PO HS 09/11/20 09/11/20 History Allergies Allergy/AdvReac Type Severity Reaction Status Date / Time clindamycin HCl Allergy Rash/Hives Verified 09/11/20 12:28 [From Cleocin] clindamycin palmitate HCl Allergy Rash/Hives Verified 09/11/20 12:28 [From Cleocin] clindamycin phosphate Allergy Rash/Hives Verified 09/11/20 12:28 [From Cleocin] latex Allergy Rash/Hives Verified 09/11/20 12:28 Physical Exam Vitals: Vital Signs Temp Pulse Pulse Resp BP Pulse Ox 09/13/20 10:00 97.7 F 54 L 18 125/63 97 09/13/20 07:25 54 L 18 09/13/20 05:40 97.4 F L 49 L 146/71 99 09/13/20 01:53 97 F L 54 L 162/77 100 09/12/20 21:51 97.8 F 64 20 126/77 97 09/12/20 20:00 20 09/12/20 17:48 98.1 F 58 L 20 142/59 97 09/12/20 13:58 97.4 F L 81 20 131/63 94 L Intake and Output 09/12/20 09/13/20 09/13/20 22:59 06:59 14:59 Output Total 300 300 Balance -300 -300 Output: Urine 300 300 Other: Voiding Method Diaper Diaper Incontinent Incontinent # Voids 3 3 # Bowel Movements 1 1 Results 09/13/20 06:06 09/13/20 06:06 Cardiac Enzymes 09/12/20 Range/Units 16:25 Troponin I 0.045 H* (0.000-0.034) ng/mL CBC 09/13/20 Range/Units 06:06 WBC 13.9 H (3.8-10.6) k/uL RBC 3.70 L (3.80-5.40) m/uL Hgb 10.2 L (11.4-16.0) gm/dL Hct 32.1 L (34.0-46.0) % Plt Count 211 (150-450) k/uL Comprehensive Metabolic Panel 09/13/20 Range/Units 06:06 Sodium 139 (135-145) mmol/L Potassium 4.5 (3.5-5.5) mmol/L Chloride 103 (96-109) mmol/L Carbon Dioxide 27.8 (21.6-31.8) mmol/L BUN 23.0 (9.0-27.0) mg/dL Creatinine 0.4 L (0.6-1.5) mg/dL Glucose 111 H (70-110) mg/dL Calcium 8.6 L (8.7-10.3) mg/dL Current Medications Generic Name Dose Route Start Last Admin Trade Name Freq PRN Reason Stop Dose Admin Acetaminophen 650 mg 09/11/20 15:24 Acetaminophen Tab 325 Mg Tab PO Q8H PRN Pain or Fever > 100.5 Ascorbic Acid 1,000 mg 09/11/20 21:00 09/12/20 20:58 Ascorbic Acid 500 Mg Tab PO 1,000 mg HS ISAÍAS Administration Aspirin 81 mg 09/11/20 21:00 09/12/20 20:57 Aspirin 81 Mg PO 81 mg HS ISAÍAS Administration Cholecalciferol 1,000 unit 09/12/20 09:00 09/13/20 09:23 Cholecalciferol 1,000 Unit Tab PO 1,000 unit DAILY ISAÍAS Administration Enoxaparin Sodium 80 mg 09/12/20 06:00 09/13/20 09:23 Enoxaparin 80 Mg/0.8 Ml Syringe SQ 80 mg Q12H ISAÍAS Administration Famotidine 20 mg 09/11/20 21:00 09/13/20 09:23 Famotidine 20 Mg Tab PO 20 mg BID ISAÍAS Administration Gabapentin 200 mg 09/11/20 20:00 09/13/20 09:23 Gabapentin 100 Mg Cap PO 200 mg BID@0800,2000 [facility] Administration Hydrocortisone 1 applic 09/11/20 21:00 09/13/20 10:50 Hydrocortisone 2.5% Rectal Cream 30 Gm Tube RECTAL Not Given TID@0500,1300,2100 [facility] Hydrocortisone Acetate 25 mg 09/11/20 21:00 09/13/20 10:49 Hydrocortisone Suppository 25 Mg Supp RECTAL Not Given BID [facility] Insulin Aspart 0 unit 09/12/20 21:00 09/13/20 13:34 Insulin Aspart (Novolog) 100 Unit/Ml Vial SQ 2 unit ACHS ISAÍAS Administration Protocol Melatonin 5 mg 09/11/20 21:00 09/12/20 20:57 Melatonin 5 Mg Tablet PO 5 mg HS ISAÍAS Administration Meloxicam 7.5 mg 09/11/20 15:24 Meloxicam 7.5 Mg Tab PO Q12H PRN Pain Methylprednisolone Sodium Succinate 60 mg 09/11/20 18:00 09/13/20 13:35 Methylprednisolone Sod Succi 125 Mg/2 Ml Vial IV 60 mg Q6HR ISAÍAS Administration Metoprolol Tartrate 12.5 mg 09/11/20 21:00 09/13/20 09:23 Metoprolol Tartrate 12.5 Mg Tab PO 12.5 mg BID ISAÍAS Administration Mycophenolate Mofetil 500 mg 09/11/20 21:00 09/13/20 13:35 Mycophenolate Mofetil 500 Mg Tab PO 500 mg TID@0500,1300,2100 ISAÍAS Administration Nifedipine 30 mg 09/11/20 20:00 09/13/20 09:23 Nifedipine Xl 30 Mg Tab.Er.24 PO 30 mg BID@0800,2000 ISAÍAS Administration Patient's Own ( 70 mg 09/14/20 07:00 Alendronate Sodium [ PO Binosto] 70 Mg WE [facility] Tablet.Eff) Nystatin 500,000 unit 09/11/20 18:00 09/13/20 13:34 Nystatin 100,000 Unit/Ml Susp 500,000 Unit/5 Ml Cup PO 500,000 unit Q6H ISAÍAS Administration Pseudoephedrine HCl 120 mg 09/11/20 15:24 Pseudoephedrine 12hr 120 Mg Tablet.Er PO Q12H PRN Cold Symptoms Tramadol HCl 50 mg 09/11/20 15:24 09/11/20 15:46 Tramadol 50 Mg Tab PO 50 mg Q8H PRN Administration Pain Zinc Sulfate 220 mg 09/12/20 21:00 09/12/20 20:57 Zinc Sulfate 220 Mg Cap PO 220 mg HS ISAÍAS Administration Intake and Output 09/12/20 09/13/20 09/13/20 22:59 06:59 14:59 Output Total 300 300 Balance -300 -300 Output: Urine 300 300 Other: Voiding Method Diaper Diaper Incontinent Incontinent # Voids 3 3 # Bowel Movements 1 1 09/13/20 06:06 09/13/20 06:06
[2020-09-13 17:30] LABS: Glucose,Whole Blood 163 mg/dL (75-99)
[2020-09-13] MEDS: methylPREDNISolone SOD SUCCI 40 MG/ML 1 ML VIAL IV SCH (18:09)
--- NOTE | 2020-09-13 18:48 | P.PN ---
Subjective Progress Note Date: 09/13/20 Claribel Ruiz, is a 74-year-old female who presented to [facility] emergency room with worsening shortness of breath, patient had a prolonged admission at [facility] for Covid 19 pneumonia with acute respiratory failure she was treated with Remdesevir, IV Steroids, convalescent plasma, and subcu Lovenox she improved very slowly she was transferred to group home for rehab however after 24 hours patient developed severe shortness of breath and was transferred back to emergency room patient was evaluated in the emergency room CT angiogram of the chest was done in the emergency room due to severe shortness of breath or was no evidence of pulmonary embolism however patient had evidence of ongoing bilateral diffuse airspace disease she was restarted on IV Solu-Medrol and subcu Lovenox and admitted to medical floor pulmonary consultation was requested Patient has multiple underlying medical problems including scleroderma, history of pulmonary fibrosis and secondary pulmonary hypertension, history of hypertension, history of scoliosis. On review of system patient is complaining of generalized weakness and generalized muscle aches she is also complaining of cough and shortness of breath otherwise she denies any complaints there is no fever or chills no headache or dizziness no chest pain no palpitation no nausea or vomiting no abdominal pain no diarrhea and no urinary symptoms. On 09/13/2020 patient was seen and examined on the medical floor she oriented 3 in no apparent distress of generalized weakness and body ache she is complaining of cough and shortness of breath she is maintained on oxygen 5 L/m via nasal cannula otherwise she denies any complaints there is no fever or chills no headache or dizziness no chest pain no palpitation no nausea or vomiting no abdominal pain no diarrhea no blood in the stools no burning with urination no frequency or urgency and no hematuria Objective - Vital Signs Vital signs: Vital Signs Temp 97.8 F 09/13/20 18:00 Pulse 56 L 09/13/20 18:00 Resp 18 09/13/20 18:00 BP 154/74 09/13/20 18:00 Pulse Ox 93 L 09/13/20 18:00 Intake & Output 09/12/20 09/13/20 09/13/20 18:59 06:59 18:59 Output Total 300 750 Balance -300 -750 Output: Urine 300 750 Other: Voiding Method Diaper Diaper Incontinent Incontinent # Voids 3 3 # Bowel Movements 1 1 - Exam In general patient is alert and oriented 3 in no apparent distress HEENT head normocephalic and atraumatic Neck is supple no JVD no goiter no lymphadenopathy Chest exam reveals fine crackles in both lung torres no wheezing Cardiac exam reveals regular heart sounds S1 and S2 no gallops no murmurs Abdomen is soft nontender no organomegaly with normal bowel sounds Extremity exam reveals minimal edema no cyanosis or clubbing Neurological examination reveals no gross focal neurological deficit - Labs CBC & Chem 7: 09/13/20 06:06 09/13/20 06:06 Labs: Abnormal Lab Results - Last 24 Hours (Table) 09/12/20 09/13/20 09/13/20 Range/Units 20:27 06:06 06:06 WBC 13.9 H (3.8-10.6) k/uL RBC 3.70 L (3.80-5.40) m/uL Hgb 10.2 L (11.4-16.0) gm/dL Hct 32.1 L (34.0-46.0) % RDW 17.3 H (11.5-15.5) % Neutrophils # 11.9 H (1.3-7.7) k/uL Creatinine 0.4 L (0.6-1.5) mg/dL BUN/Creatinine Ratio 57.50 H (12.00-20.00) Ratio Glucose 111 H (70-110) mg/dL POC Glucose (mg/dL) 197 H (75-99) mg/dL Calcium 8.6 L (8.7-10.3) mg/dL 09/13/20 09/13/20 09/13/20 Range/Units 06:58 12:03 17:28 WBC (3.8-10.6) k/uL RBC (3.80-5.40) m/uL Hgb (11.4-16.0) gm/dL Hct (34.0-46.0) % RDW (11.5-15.5) % Neutrophils # (1.3-7.7) k/uL Creatinine (0.6-1.5) mg/dL BUN/Creatinine Ratio (12.00-20.00) Ratio Glucose (70-110) mg/dL POC Glucose (mg/dL) 112 H 173 H 163 H (75-99) mg/dL Calcium (8.7-10.3) mg/dL Microbiology - Last 24 Hours (Table) 09/11/20 11:39 Blood Culture - Preliminary Blood No Growth after 48 hours Assessment and Plan Plan: 1. Acute hypoxic respiratory failure 2. Covid 19 pneumonia diagnosed 3 weeks ago 3. Underlying history of scleroderma 4. Underlying history of pulmonary fibrosis 5. Underlying history of pulmonary hypertension At this time patient is admitted to medical floor she was restarted on IV Decadron and subcu Lovenox home medications reviewed and reordered Will follow during this admission for medical management pulmonary consultation was requested Continue with current management consult physical therapy and occupational therapy Patient does not wish to return to group home and is hoping to return home after this admission
[2020-09-13 20:27] LABS: Glucose,Whole Blood 180 mg/dL (75-99)
[2020-09-13] MEDS: ATORVASTATIN 20 MG TAB PO SCH (21:08)
[2020-09-13] MEDS: ASCORBIC ACID 500 MG TAB PO SCH (21:08)
[2020-09-13] MEDS: ASPIRIN 81 MG PO SCH (21:09)
[2020-09-13] MEDS: MELATONIN 5 MG TABLET PO SCH (21:09)
[2020-09-13] MEDS: ZINC SULFATE 220 MG CAP PO SCH (21:09)
[2020-09-13] MEDS: MELOXICAM 7.5 MG TAB PO PRN (21:17)
[2020-09-14] MEDS: NYSTATIN 100,000 UNIT/ML SUSP 500,000 UNIT/5 ML CUP PO SCH ×4 (01:17→17:37)
[2020-09-14] MEDS: methylPREDNISolone SOD SUCCI 40 MG/ML 1 ML VIAL IV SCH ×3 (01:17→14:39)
[2020-09-14] MEDS: HYDROCORTISONE 2.5% RECTAL CREAM 30 GM TUBE RECTAL SCH ×3 (05:54→20:37)
[2020-09-14 06:58] LABS: Glucose,Whole Blood 98 mg/dL (75-99)
[2020-09-14] MEDS ORDERED: ALENDRONATE SODIUM 70 MG PO SCH (07:00)
[2020-09-14] MEDS: INSULIN ASPART (NovoLOG) 100 UNIT/ML VIAL SQ SCH ×4 (07:12→20:21)
--- NOTE | 2020-09-14 07:53 | ECHOF ---
Referral Reason:lv function MEASUREMENTS -------- HEIGHT: 177.8 cm WEIGHT: 81.6 kg BP: 125/63 IVSd: 1.3 cm (0.6 - 1.1) LVIDd: 4.6 cm (3.9 - 5.3) LVPWd: 1.2 cm (0.6 - 1.1) IVSs: 1.8 cm LVIDs: 3.4 cm LVPWs: 1.9 cm FINDINGS -------- Sinus rhythm. Limited Study The left ventricular size is normal. There is mild concentric left ventricular hypertrophy. Overa ll left ventricular systolic function is low-normal with, an EF between 50 - 55 %. CONCLUSIONS -------- 1. The left ventricular size is normal. 2. There is mild concentric left ventricular hypertrophy. 3. Overall left ventricular systolic function is low-normal with, an EF between 50 - 55 %. [employer]: Elaine Ward RDCS
[2020-09-14] MEDS: ENOXAPARIN 40 MG/0.4 ML SYRINGE SQ SCH (08:15)
[2020-09-14] MEDS: NIFEdipine XL 30 MG TAB.ER.24 PO SCH ×2 (08:16→20:20)
[2020-09-14] MEDS: CHOLECALCIFEROL 1,000 UNIT TAB PO SCH (08:16)
[2020-09-14] MEDS: GABAPENTIN 100 MG CAP PO SCH ×2 (08:16→20:33)
[2020-09-14] MEDS: FAMOTIDINE 20 MG TAB PO SCH ×3 (08:16→21:45)
[2020-09-14] MEDS: METOPROLOL TARTRATE 12.5 MG TAB PO SCH ×2 (08:16→20:23)
[2020-09-14] MEDS: HYDROCORTISONE SUPPOSITORY 25 MG SUPP RECTAL SCH ×2 (08:23→20:23)
--- NOTE | 2020-09-14 13:46 | P.PN ---
Subjective Progress Note Date: 09/14/20 Principal diagnosis: Generalized fatigue and weakness, recent CoVID 19 pneumonitis This is a 74-year-old white female patient of Dr. Swenson, who was recently hospitalized for a period of time from 08/27/2020 through 09/10/2024 acute COVID 19 pneumonia, patient had completed a course of Decadron, Remdesivir, and she received anticoagulation while in the hospital. She did require prolonged hospitalization during which she was requiring high flow oxygen per [employer], which was gradually weaned down, to 4 L/m, patient remained generally very weak, however she was improving, she was discharged to rehab facility, on 09/10/2020, however when the patient got there she was not happy with the care that she was getting there, and she remained quite weak, and she thought she should return to the hospital. On 09/11/2020 patient was brought back to the hospital per EMS, apparently patient also stated down increased shortness of breath, denies any fever or chills, denied any chest pain or sweats, no nausea vomiting or diarrhea. Chest x-ray was obtained showing evidence of bilateral infiltrates , stable in appearance from previous chest x-ray. Her lab work was reviewed, showi ng white blood cell count of 11.4, hemoglobin 12.2, her d-dimer is 1.71, and this is improved from 3.54 from previous admission, CO2 is 32, the rest of the electrolytes are unremarkable, BUN is 23, creatinine is 0.48, total bilirubin was 1.5, her troponin was mildly elevated to 0.08, and 0.045. And they are trending down from her previous admission. She denied any chest discomfort, her proBNP was 840. She is currently on 6 L of oxygen, with a pulse ox of 97-99%, hemodynamically she is stable, she's been afebrile, CT angios the chest was obtained showing ongoing bilateral diffuse airspace disease, mildly decreased in the upper mid lungs, and no evidence of pulmonary embolism. Patient remains on therapeutic doses of Lovenox at 80 mg by mouth twice daily, she is on IV Solu- Medrol 60 mg every 6 hours. Patient is seen today 09/14/2020 in follow-up on the regular medical floor. She is awake and alert. Currently sitting up in a chair at the bedside. No worsening shortness of breath, cough or congestion. Maintaining O2 saturation in the 90s on 4 L/m per nasal cannula. She's afebrile. Blood glucose 98. Continued on Lovenox, IV Solu-Medrol, vitamin supplements. Limited echocard iogram revealed a preserved left ventricular systolic function with ejection fraction 50-55%. Objective - Vital Signs Vital signs: Vital Signs Temp 97.3 F L 09/14/20 09:33 Pulse 64 09/14/20 09:33 Resp 16 09/14/20 09:33 BP 129/63 09/14/20 09:33 Pulse Ox 91 L 09/14/20 09:33 Intake & Output 09/13/20 09/14/20 09/14/20 18:59 06:59 18:59 Output Total 750 400 Balance -750 -400 Output: Urine 750 400 Other: Voiding Method Diaper Diaper Diaper Incontinent Incontinent Incontinent # Voids 3 1 # Bowel Movements 1 - Exam GENERAL EXAM: Alert, 74-year-old female patient on 4 L of oxygen and the pulse ox of 97-99% comfortable in no apparent distress. HEAD: Normocephalic/atraumatic. EYES: Normal reaction of pupils, equal size. Conjunctiva pink, sclera white. NOSE: Clear with pink turbinates. THROAT: No erythema or exudates. NECK: No masses, no JVD, no thyroid enlargement, no adenopathy. CHEST: No chest wall deformity. Symmetrical expansion. LUNGS: Equal air entry with few scattered crackles in the bilateral posterior bases. CVS: Regular rate and rhythm, normal S1 and S2, no gallops, no murmurs, no rubs ABDOMEN: Soft, nontender. No hepatosplenomegaly, normal bowel sounds, no guarding or rigidity. EXTREMITIES: No clubbing, no edema, no cyanosis, 2+ pulses and upper and lower extremities. MUSCULOSKELETAL: Muscle strength and tone normal. SPINE: No scoliosis or deformity SKIN: No rashes CENTRAL NERVOUS SYSTEM: Alert and oriented -3. No focal deficits, tone is normal in all 4 extremities. PSYCHIATRIC: Alert and oriented -3. Appropriate affect. Intact judgment and insight. - Labs CBC & Chem 7: 09/13/20 06:06 09/13/20 06:06 Labs: Abnormal Lab Results - Last 24 Hours (Table) 09/13/20 09/13/20 Range/Units 17:28 20:23 POC Glucose (mg/dL) 163 H 180 H (75-99) mg/dL Microbiology - Last 24 Hours (Table) 09/11/20 11:39 Blood Culture - Preliminary Blood No Growth after 48 hours Assessment and Plan Assessment: #1. Acute hypoxic respiratory failure, ongoing, has improved over the course of the last several weeks, related to recent history of COVID 19 pneumonia, currently requiring 4 L of oxygen, pulse ox of 91-99%, this can probably be further wean down #2. Slightly improved bilateral airspace disease related to recent history of COVID 19 pneumonia #3. Elevated d-dimer of 1.72, trending down from recent hospitalization for acute COVID 19 pneumonitis, with no evidence of pulmonary embolism on the CT chest #4. Elevated troponins, trending down from her most recent hospitalization #5. Recent hospitalization from 08/27/2020 through 09/10/2020 patient completed a course of Remdesivir, IV steroids, and doses of anticoagulation, she required high flow oxygen per [employer], which was gradually weaned down, and patient was discharged to [facility] for rehabilitation on 09/10/2020 on 4 L/m #6. History of scleroderma #7. History of Raynaud's syndrome #8. History of hypertension #9. Generalized weakness Plan: The patient was seen and evaluated by Dr. Ortez Discharge planning in place We will see as needed I, the cosigning physician, performed a history & physical examination of the patient. Lungs sounds bibasilar coarse crackles. Maintaining good O2 saturations in the 90s on 4 L/m per nasal cannula. I discussed the assessment and plan of care with my nurse practitioner, Marti Espinoza. I attest to the above note as dictated by her.
[2020-09-14] MEDS: LACTULOSE 20 GM/30 ML CUP PO SCH (14:37)
[2020-09-14 16:46] LABS: Glucose,Whole Blood 133 mg/dL (75-99)
--- NOTE | 2020-09-14 16:58 | P.PN ---
Subjective Progress Note Date: 09/14/20 Claribel Ruiz, is a 74-year-old female who presented to [facility] emergency room with worsening shortness of breath, patient had a prolonged admission at [facility] for Covid 19 pneumonia with acute respiratory failure she was treated with Remdesevir, IV Steroids, convalescent plasma, and subcu Lovenox she improved very slowly she was [facility] to [facility] for [facility] however after 24 hours patient developed severe shortness of breath and was transferred back to emergency room patient was evaluated in the emergency room CT angiogram of the chest was done in the emergency room due to severe shortness of breath or was no evidence of pulmonary embolism however patient had evidence of ongoing bilateral diffuse airspace disease she was restarted on IV Solu-Medrol and subcu Lovenox and admitted to medical floor pulmonary consultation was requested Patient has multiple underlying medical problems including scleroderma, history of pulmonary fibrosis and secondary pulmonary hypertension, history of hypertension, history of scoliosis. On review of system patient is complaining of generalized weakness and generalized muscle aches she is also complaining of cough and shortness of breath otherwise she denies any complaints there is no fever or chills no headache or dizziness no chest pain no palpitation no nausea or vomiting no abdominal pain no diarrhea and no urinary symptoms. On 09/13/2020 patient was seen and examined on the medical floor she oriented 3 in no apparent distress of generalized weakness and body ache she is complaining of cough and shortness of breath she is maintained on oxygen 5 L/m via nasal cannula otherwise she denies any complaints there is no fever or chills no headache or dizziness no chest pain no palpitation no nausea or vomiting no abdominal pain no diarrhea no blood in the stools no burning with urination no frequency or urgency and no hematuria. On 09/14/2020 patient was seen and examined on the medical floor she oriented 3 in no apparent distress of generalized weakness and body ache she is complaining of cough and shortness of breath she is maintained on oxygen 5 L/m via nasal cannula , she is also complaining of constipation, otherwise she denies any complaints there is no fever or chills no headache or dizziness no chest pain no palpitation no nausea or vomiting no abdominal pain no diarrhea no blood in the stools no burning with urination no frequency or urgency and no hematuria Objective - Vital Signs Vital signs: Vital Signs Temp 97.6 F 09/14/20 05:22 Pulse 100 09/14/20 05:22 Resp 15 09/14/20 05:22 BP 133/67 09/14/20 05:22 Pulse Ox 99 09/14/20 05:22 Intake & Output 09/13/20 09/14/20 09/14/20 18:59 06:59 18:59 Output Total 750 400 Balance -750 -400 Output: Urine 750 400 Other: Voiding Method Diaper Diaper Incontinent Incontinent # Voids 3 1 # Bowel Movements 1 - Exam In general patient is alert and oriented 3 in no apparent distress HEENT head normocephalic and atraumatic Neck is supple no JVD no goiter no lymphadenopathy Chest exam reveals fine crackles in both lung torres no wheezing Cardiac exam reveals regular heart sounds S1 and S2 no gallops no murmurs Abdomen is soft nontender no organomegaly with normal bowel sounds Extremity exam reveals minimal edema no cyanosis or clubbing Neurological examination reveals no gross focal neurological deficit - Labs CBC & Chem 7: 09/13/20 06:06 09/13/20 06:06 Labs: Abnormal Lab Results - Last 24 Hours (Table) 09/13/20 09/13/20 09/13/20 Range/Units 06:06 12:03 17:28 Creatinine 0.4 L (0.6-1.5) mg/dL BUN/Creatinine Ratio 57.50 H (12.00-20.00) Ratio Glucose 111 H (70-110) mg/dL POC Glucose (mg/dL) 173 H 163 H (75-99) mg/dL Calcium 8.6 L (8.7-10.3) mg/dL 09/13/20 Range/Units 20:23 Creatinine (0.6-1.5) mg/dL BUN/Creatinine Ratio (12.00-20.00) Ratio Glucose (70-110) mg/dL POC Glucose (mg/dL) 180 H (75-99) mg/dL Calcium (8.7-10.3) mg/dL Microbiology - Last 24 Hours (Table) 09/11/20 11:39 Blood Culture - Preliminary Blood No Growth after 48 hours Assessment and Plan Plan: 1. Acute hypoxic respiratory failure 2. Covid 19 pneumonia diagnosed 3 weeks ago 3. Underlying history of scleroderma 4. Underlying history of pulmonary fibrosis 5. Underlying history of pulmonary hypertension At this time patient is admitted to medical floor she was restarted on IV Decadron and subcu Lovenox home medications reviewed and reordered Will follow during this admission for medical management pulmonary consultation was requested Continue with current management consult physical therapy and occupational therapy Patient does not wish to return to [facility] and is hoping to return home after this admission
[2020-09-14] MEDS ORDERED: NA PHOS,M-B/NA PHOS,DI-BA 133 ML ENEMA RECTAL ONE ×2 (17:00→20:00)
[2020-09-14 20:05] LABS: Glucose,Whole Blood 178 mg/dL (75-99)
[2020-09-14] MEDS: MELOXICAM 7.5 MG TAB PO PRN (20:33)
[2020-09-14] MEDS: MELATONIN 5 MG TABLET PO SCH (20:37)
[2020-09-14] MEDS: ASPIRIN 81 MG PO SCH (20:37)
[2020-09-14] MEDS: ATORVASTATIN 20 MG TAB PO SCH (20:37)
[2020-09-14] MEDS: ASCORBIC ACID 500 MG TAB PO SCH (20:37)
[2020-09-14] MEDS: ZINC SULFATE 220 MG CAP PO SCH (20:38)
[2020-09-15] MEDS: methylPREDNISolone SOD SUCCI 40 MG/ML 1 ML VIAL IV SCH ×4 (00:44→23:16)
[2020-09-15] MEDS: NYSTATIN 100,000 UNIT/ML SUSP 500,000 UNIT/5 ML CUP PO SCH ×5 (00:44→23:16)
[2020-09-15] MEDS: HYDROCORTISONE 2.5% RECTAL CREAM 30 GM TUBE RECTAL SCH ×3 (05:14→22:38)
[2020-09-15] MEDS: INSULIN ASPART (NovoLOG) 100 UNIT/ML VIAL SQ SCH ×4 (06:56→20:18)
[2020-09-15 07:01] LABS: Glucose,Whole Blood 38 mg/dL (75-99)
[2020-09-15 07:10] LABS: Glucose,Whole Blood 61 mg/dL (75-99)
[2020-09-15] MEDS: METOPROLOL TARTRATE 12.5 MG TAB PO SCH ×2 (07:23→20:18)
[2020-09-15] MEDS: GABAPENTIN 100 MG CAP PO SCH ×2 (07:23→20:18)
[2020-09-15] MEDS: FAMOTIDINE 20 MG TAB PO SCH ×2 (07:23→20:17)
[2020-09-15] MEDS: ENOXAPARIN 40 MG/0.4 ML SYRINGE SQ SCH (07:24)
[2020-09-15] MEDS: LACTULOSE 20 GM/30 ML CUP PO SCH (07:25)
[2020-09-15] MEDS: HYDROCORTISONE SUPPOSITORY 25 MG SUPP RECTAL SCH ×2 (07:26→22:38)
[2020-09-15] MEDS: NIFEdipine XL 30 MG TAB.ER.24 PO SCH ×2 (07:26→20:17)
[2020-09-15] MEDS: CHOLECALCIFEROL 1,000 UNIT TAB PO SCH (07:34)
[2020-09-15 07:46] LABS: Glucose,Whole Blood 40 mg/dL (75-99)
[2020-09-15 07:46] LABS: Glucose,Whole Blood 55 mg/dL (75-99)
[2020-09-15 07:50] LABS: Glucose,Whole Blood 81 mg/dL (75-99)
[2020-09-15 07:59] LABS: Anisocytosis Slight; Basophils # (A) 0.1 k/uL (0-0.2); Basophils % (A) 1 %; Eosinophils # (A) 0.2 k/uL (0-0.7); Eosinophils % (A) 1 %; HCT 36.2 % (34.0-46.0); HGB 11.3 gm/dL (11.4-16.0); Hypochromasia Marked; Lymphocytes # (A) 1.8 k/uL (1.0-4.8); Lymphocytes % (A) 13 %; MCH 27.3 pg (25.0-35.0); MCHC 31.2 g/dL (31.0-37.0); MCV 87.6 fL (80.0-100.0); Mean Platelet Volume 8.2; Monocytes # (A) 0.8 k/uL (0-1.0); Monocytes % (A) 6 %; Neutrophils % (A) 79 %; Platelet Count 219 k/uL (150-450); RBC 4.14 m/uL (3.80-5.40); RDW 17.3 % (11.5-15.5); WBC 13.9 k/uL (3.8-10.6)
[2020-09-15 11:39] LABS: Glucose,Whole Blood 115 mg/dL (75-99)
[2020-09-15 11:47] LABS: African American GFR (CKD) 118.1 (60.0-200.0); Albumin 3.4 g/dL (3.80-4.90); Albumin/Globulin Ratio 1.89 (1.60-3.17); Anion Gap 9.3 mmol/L (4.00-12.00); Calcium 8.9 mg/dL (8.7-10.3); Carbon Dioxide 25.7 mmol/L (21.6-31.8); Globulin 1.8 g/dL (1.6-3.3); Non-African American GFR(CKD) 101.9 (60.0-200.0); Potassium 4.2 mmol/L (3.5-5.5); Total Bilirubin 0.6 mg/dL (0.3-1.2); Total Protein 5.2 g/dL (6.2-8.2)
[2020-09-15 16:58] LABS: Glucose,Whole Blood 148 mg/dL (75-99)
[2020-09-15 20:05] LABS: Glucose,Whole Blood 140 mg/dL (75-99)
[2020-09-15] MEDS: ATORVASTATIN 20 MG TAB PO SCH (20:17)
[2020-09-15] MEDS: ASCORBIC ACID 500 MG TAB PO SCH (20:17)
[2020-09-15] MEDS: ASPIRIN 81 MG PO SCH (20:17)
[2020-09-15] MEDS: MELATONIN 5 MG TABLET PO SCH (20:18)
[2020-09-15] MEDS: ZINC SULFATE 220 MG CAP PO SCH (20:18)
[2020-09-16] MEDS: HYDROCORTISONE 2.5% RECTAL CREAM 30 GM TUBE RECTAL SCH ×3 (05:08→20:58)
[2020-09-16] MEDS: NYSTATIN 100,000 UNIT/ML SUSP 500,000 UNIT/5 ML CUP PO SCH ×3 (05:08→17:17)
[2020-09-16 07:18] LABS: Glucose,Whole Blood 152 mg/dL (75-99)
[2020-09-16] MEDS: LACTULOSE 20 GM/30 ML CUP PO SCH (07:26)
[2020-09-16] MEDS: INSULIN ASPART (NovoLOG) 100 UNIT/ML VIAL SQ SCH ×4 (07:26→20:48)
[2020-09-16] MEDS: HYDROCORTISONE SUPPOSITORY 25 MG SUPP RECTAL SCH ×2 (07:26→20:58)
[2020-09-16] MEDS: METOPROLOL TARTRATE 12.5 MG TAB PO SCH ×2 (07:31→20:43)
[2020-09-16] MEDS: methylPREDNISolone SOD SUCCI 40 MG/ML 1 ML VIAL IV SCH ×2 (07:31→16:11)
[2020-09-16] MEDS: FAMOTIDINE 20 MG TAB PO SCH ×2 (07:32→20:43)
[2020-09-16] MEDS: GABAPENTIN 100 MG CAP PO SCH ×2 (07:32→20:42)
[2020-09-16] MEDS: ENOXAPARIN 40 MG/0.4 ML SYRINGE SQ SCH (07:32)
[2020-09-16] MEDS: NIFEdipine XL 30 MG TAB.ER.24 PO SCH ×2 (07:32→21:04)
[2020-09-16] MEDS: CHOLECALCIFEROL 1,000 UNIT TAB PO SCH (07:32)
[2020-09-16 11:43] LABS: Glucose,Whole Blood 178 mg/dL (75-99)
--- NOTE | 2020-09-16 13:45 | P.PN ---
Subjective Progress Note Date: 09/15/20 Claribel Ruiz, is a 74-year-old female who presented to [facility] emergency room with worsening shortness of breath, patient had a prolonged admission at [facility] for Covid 19 pneumonia with acute respiratory failure she was treated with Remdesevir, IV Steroids, convalescent plasma, and subcu Lovenox she improved very slowly she was [facility] however after 24 hours patient developed severe shortness of breath and was transferred back to emergency room patient was evaluated in the emergency room CT angiogram of the chest was done in the emergency room due to severe shortness of breath or was no evidence of pulmonary embolism however patient had evidence of ongoing bilateral diffuse airspace disease she was restarted on IV Solu-Medrol and subcu Lovenox and admitted to medical floor pulmonary consultation was requested Patient has multiple underlying medical problems including scleroderma, history of pulmonary fibrosis and secondary pulmonary hypertension, history of hypertension, history of scoliosis. On review of system patient is complaining of generalized weakness and generalized muscle aches she is also complaining of cough and shortness of breath otherwise she denies any complaints there is no fever or chills no headache or dizziness no chest pain no palpitation no nausea or vomiting no abdominal pain no diarrhea and no urinary symptoms. On 09/13/2020 patient was seen and examined on the medical floor she oriented 3 in no apparent distress of generalized weakness and body ache she is complaining of cough and shortness of breath she is maintained on oxygen 5 L/m via nasal cannula otherwise she denies any complaints there is no fever or chills no headache or dizziness no chest pain no palpitation no nausea or vomiting no abdominal pain no diarrhea no blood in the stools no burning with urination no frequency or urgency and no hematuria. On 09/14/2020 patient was seen and examined on the medical floor she oriented 3 in no apparent distress of generalized weakness and body ache she is complaining of cough and shortness of breath she is maintained on oxygen 5 L/m via nasal cannula , she is also complaining of constipation, otherwise she denies any complaints there is no fever or chills no headache or dizziness no chest pain no palpitation no nausea or vomiting no abdominal pain no diarrhea no blood in the stools no burning with urination no frequency or urgency and no hematuria On 09/15/2020 patient was seen and examined on the medical floor she is alert and oriented 3 in no apparent distress she is still complaining of severe weakness and shortness of breath she has occasional cough otherwise she denies any complaints there is no fever or chills no headache or dizziness no chest pain, no palpitation no nausea or vomiting no abdominal pain no diarrhea no blood in the stools no burning with urination no frequency or urgency and no hematuria. Objective - Vital Signs Vital signs: Vital Signs Temp 97.3 F L 09/15/20 06:05 Pulse 83 09/15/20 07:03 Resp 19 09/15/20 06:05 BP 150/73 09/15/20 06:05 Pulse Ox 93 L 09/15/20 07:03 Intake & Output 09/14/20 09/15/20 09/15/20 18:59 06:59 18:59 Intake Total 400 Output Total 300 Balance 400 -300 Intake: Oral 400 Output: Urine 300 Other: Voiding Method Diaper Diaper Incontinent Incontinent # Voids 3 1 # Bowel Movements 1 - Exam In general patient is alert and oriented 3 in no apparent distress HEENT head normocephalic and atraumatic Neck is supple no JVD no goiter no lymphadenopathy Chest exam reveals fine crackles in both lung torres no wheezing Cardiac exam reveals regular heart sounds S1 and S2 no gallops no murmurs Abdomen is soft nontender no organomegaly with normal bowel sounds Extremity exam reveals minimal edema no cyanosis or clubbing Neurological examination reveals no gross focal neurological deficit - Labs CBC & Chem 7: 09/15/20 07:19 09/15/20 06:27 Labs: Abnormal Lab Results - Last 24 Hours (Table) 09/14/20 09/14/20 09/15/20 Range/Units 16:40 20:04 06:51 WBC (3.8-10.6) k/uL Hgb (11.4-16.0) gm/dL RDW (11.5-15.5) % Neutrophils # (1.3-7.7) k/uL POC Glucose (mg/dL) 133 H 178 H 38 L (75-99) mg/dL 09/15/20 09/15/20 09/15/20 Range/Units 07:09 07:19 07:28 WBC 13.9 H (3.8-10.6) k/uL Hgb 11.3 L (11.4-16.0) gm/dL RDW 17.3 H (11.5-15.5) % Neutrophils # 11.0 H (1.3-7.7) k/uL POC Glucose (mg/dL) 61 L 40 L (75-99) mg/dL 09/15/20 Range/Units 07:29 WBC (3.8-10.6) k/uL Hgb (11.4-16.0) gm/dL RDW (11.5-15.5) % Neutrophils # (1.3-7.7) k/uL POC Glucose (mg/dL) 55 L (75-99) mg/dL Microbiology - Last 24 Hours (Table) 09/11/20 11:39 Blood Culture - Preliminary Blood No Growth after 72 hours Assessment and Plan Plan: 1. Acute hypoxic respiratory failure 2. Covid 19 pneumonia diagnosed 3 weeks ago 3. Underlying history of scleroderma 4. Underlying history of pulmonary fibrosis 5. Underlying history of pulmonary hypertension At this time patient is admitted to medical floor she was restarted on IV Decadron and subcu Lovenox home medications reviewed and reordered Will follow during this admission for medical management pulmonary consultation was requested Continue with current management consult physical therapy and occupational therapy Patient does not wish to return to [facility] and is hoping to return home after this admission
--- NOTE | 2020-09-16 13:47 | P.PN ---
Subjective Progress Note Date: 09/16/20 Claribel Ruiz, is a 74-year-old female who presented to [facility] emergency room with worsening shortness of breath, patient had a prolonged admission at [facility] for Covid 19 pneumonia with acute respiratory failure she was treated with Remdesevir, IV Steroids, convalescent plasma, and subcu Lovenox she improved very slowly she was transferred to intermediate for rehab however after 24 hours patient developed severe shortness of breath and was transferred back to emergency room patient was evaluated in the emergency room CT angiogram of the chest was done in the emergency room due to severe shortness of breath or was no evidence of pulmonary embolism however patient had evidence of ongoing bilateral diffuse airspace disease she was restarted on IV Solu-Medrol and subcu Lovenox and admitted to medical floor pulmonary consultation was requested Patient has multiple underlying medical problems including scleroderma, history of pulmonary fibrosis and secondary pulmonary hypertension, history of hypertension, history of scoliosis. On review of system patient is complaining of generalized weakness and generalized muscle aches she is also complaining of cough and shortness of breath otherwise she denies any complaints there is no fever or chills no headache or dizziness no chest pain no palpitation no nausea or vomiting no abdominal pain no diarrhea and no urinary symptoms. On 09/13/2020 patient was seen and examined on the medical floor she oriented 3 in no apparent distress of generalized weakness and body ache she is complaining of cough and shortness of breath she is maintained on oxygen 5 L/m via nasal cannula otherwise she denies any complaints there is no fever or chills no headache or dizziness no chest pain no palpitation no nausea or vomiting no abdominal pain no diarrhea no blood in the stools no burning with urination no frequency or urgency and no hematuria. On 09/14/2020 patient was seen and examined on the medical floor she oriented 3 in no apparent distress of generalized weakness and body ache she is complaining of cough and shortness of breath she is maintained on oxygen 5 L/m via nasal cannula , she is also complaining of constipation, otherwise she denies any complaints there is no fever or chills no headache or dizziness no chest pain no palpitation no nausea or vomiting no abdominal pain no diarrhea no blood in the stools no burning with urination no frequency or urgency and no hematuria On 09/15/2020 patient was seen and examined on the medical floor she is alert and oriented 3 in no apparent distress she is still complaining of severe weakness and shortness of breath she has occasional cough otherwise she denies any complaints there is no fever or chills no headache or dizziness no chest pain, no palpitation no nausea or vomiting no abdominal pain no diarrhea no blood in the stools no burning with urination no frequency or urgency and no hematuria. On 09/16/2020 patient was seen and examined on the medical floor she is alert and oriented 3 in no apparent distress she is complaining of shortness of breath occasional cough and severe weakness otherwise she denies any complaints there is no fever or chills no headache or dizziness no chest pain no palpitation no nausea or vomiting no abdominal pain no diarrhea no blood in the stools no burning with urination no frequency or urgency and no hematuria. Pr olonged discussion today in regard to discharge planning, at this point patient is refusing to go to any intermediate she wants to return to her own home with oxygen and hospital bed and visiting nurses hopefully early next week. Objective - Vital Signs Vital signs: Vital Signs Temp 97.6 F 09/16/20 10:00 Pulse 63 09/16/20 10:00 Resp 16 09/16/20 10:00 BP 136/66 09/16/20 10:00 Pulse Ox 96 09/16/20 10:00 Intake & Output 09/15/20 09/16/20 09/16/20 18:59 06:59 18:59 Intake Total 532 Balance 532 Intake: Oral 532 Other: Voiding Method Diaper Diaper Incontinent Incontinent # Voids 2 4 - Exam In general patient is alert and oriented 3 in no apparent distress HEENT head normocephalic and atraumatic Neck is supple no JVD no goiter no lymphadenopathy Chest exam reveals fine crackles in both lung torres no wheezing Cardiac exam reveals regular heart sounds S1 and S2 no gallops no murmurs Abdomen is soft nontender no organomegaly with normal bowel sounds Extremity exam reveals minimal edema no cyanosis or clubbing Neurological examination reveals no gross focal neurological deficit - Labs CBC & Chem 7: 09/15/20 07:19 09/15/20 06:27 Labs: Abnormal Lab Results - Last 24 Hours (Table) 09/15/20 09/15/20 09/16/20 Range/Units 16:57 20:03 07:17 POC Glucose (mg/dL) 148 H 140 H 152 H (75-99) mg/dL 09/16/20 Range/Units 11:41 POC Glucose (mg/dL) 178 H (75-99) mg/dL Microbiology - Last 24 Hours (Table) 09/11/20 11:39 Blood Culture - Preliminary Blood No Growth after 96 hours Assessment and Plan Plan: 1. Acute hypoxic respiratory failure 2. Covid 19 pneumonia diagnosed 3 weeks ago 3. Underlying history of scleroderma 4. Underlying history of pulmonary fibrosis 5. Underlying history of pulmonary hypertension At this time patient is admitted to medical floor she was restarted on IV Decadron and subcu Lovenox home medications reviewed and reordered Will follow during this admission for medical management pulmonary consultation was requested Continue with current management consult physical therapy and occupational therapy Patient does not wish to return to intermediate and is hoping to return home after this admission
[2020-09-16 13:56] VITALS: BMI 25.8
[2020-09-16 16:59] LABS: Glucose,Whole Blood 101 mg/dL (75-99)
[2020-09-16 20:33] LABS: Glucose,Whole Blood 170 mg/dL (75-99)
[2020-09-16] MEDS: ASCORBIC ACID 500 MG TAB PO SCH (20:43)
[2020-09-16] MEDS: ZINC SULFATE 220 MG CAP PO SCH (20:43)
[2020-09-16] MEDS: MELATONIN 5 MG TABLET PO SCH (20:43)
[2020-09-16] MEDS: ATORVASTATIN 20 MG TAB PO SCH (20:43)
[2020-09-16] MEDS: ASPIRIN 81 MG PO SCH (21:04)
[2020-09-17] MEDS: methylPREDNISolone SOD SUCCI 40 MG/ML 1 ML VIAL IV SCH ×4 (00:07→23:36)
[2020-09-17] MEDS: NYSTATIN 100,000 UNIT/ML SUSP 500,000 UNIT/5 ML CUP PO SCH ×6 (00:07→23:38)
[2020-09-17] MEDS: HYDROCORTISONE 2.5% RECTAL CREAM 30 GM TUBE RECTAL SCH ×4 (05:33→21:17)
[2020-09-17 07:30] LABS: Glucose,Whole Blood 102 mg/dL (75-99)
[2020-09-17] MEDS: INSULIN ASPART (NovoLOG) 100 UNIT/ML VIAL SQ SCH ×4 (07:33→20:17)
[2020-09-17] MEDS: LACTULOSE 20 GM/30 ML CUP PO SCH (08:25)
[2020-09-17] MEDS: ENOXAPARIN 40 MG/0.4 ML SYRINGE SQ SCH (08:25)
[2020-09-17] MEDS: NIFEdipine XL 30 MG TAB.ER.24 PO SCH ×2 (08:26→21:16)
[2020-09-17] MEDS: METOPROLOL TARTRATE 12.5 MG TAB PO SCH ×2 (08:26→20:17)
[2020-09-17] MEDS: GABAPENTIN 100 MG CAP PO SCH ×2 (08:26→20:17)
[2020-09-17] MEDS: CHOLECALCIFEROL 1,000 UNIT TAB PO SCH (08:26)
[2020-09-17] MEDS: traMADol 50 MG TAB PO PRN (08:27)
[2020-09-17] MEDS: HYDROCORTISONE SUPPOSITORY 25 MG SUPP RECTAL SCH ×2 (08:27→20:07)
[2020-09-17] MEDS: FAMOTIDINE 20 MG TAB PO SCH ×2 (08:27→20:17)
[2020-09-17 11:09] LABS: Anisocytosis Slight; Basophils % (A) 0 %; Eosinophils % (A) 0 %; HCT 35.8 % (34.0-46.0); HGB 11.2 gm/dL (11.4-16.0); Hypochromasia Moderate; Lymphocytes # (A) 1.2 k/uL (1.0-4.8); Lymphocytes % (A) 9 %; MCH 27.3 pg (25.0-35.0); MCHC 31.2 g/dL (31.0-37.0); MCV 87.3 fL (80.0-100.0); Mean Platelet Volume 9.5; Monocytes # (A) 0.5 k/uL (0-1.0); Monocytes % (A) 4 %; Neutrophils # (A) 11.1 k/uL (1.3-7.7); Neutrophils % (A) 86 %; Platelet Count 222 k/uL (150-450); RDW 17.7 % (11.5-15.5); WBC 12.9 k/uL (3.8-10.6)
[2020-09-17 12:05] LABS: Glucose,Whole Blood 133 mg/dL (75-99)
--- NOTE | 2020-09-17 12:05 | P.PN ---
Subjective Progress Note Date: 09/17/20 Claribel Ruiz, is a 74-year-old female who presented to [facility] emergency room with worsening shortness of breath, patient had a prolonged admission at [facility] for Covid 19 pneumonia with acute respiratory failure she was treated with Remdesevir, IV Steroids, convalescent plasma, and subcu Lovenox she improved very slowly she was transferred to skilled nursing for rehab however after 24 hours patient developed severe shortness of breath and was transferred back to emergency room patient was evaluated in the emergency room CT angiogram of the chest was done in the emergency room due to severe shortness of breath or was no evidence of pulmonary embolism however patient had evidence of ongoing bilateral diffuse airspace disease she was restarted on IV Solu-Medrol and subcu Lovenox and admitted to medical floor pulmonary consultation was requested Patient has multiple underlying medical problems including scleroderma, history of pulmonary fibrosis and secondary pulmonary hypertension, history of hypertension, history of scoliosis. On review of system patient is complaining of generalized weakness and generalized muscle aches she is also complaining of cough and shortness of breath otherwise she denies any complaints there is no fever or chills no headache or dizziness no chest pain no palpitation no nausea or vomiting no abdominal pain no diarrhea and no urinary symptoms. On 09/13/2020 patient was seen and examined on the medical floor she oriented 3 in no apparent distress of generalized weakness and body ache she is complaining of cough and shortness of breath she is maintained on oxygen 5 L/m via nasal cannula otherwise she denies any complaints there is no fever or chills no headache or dizziness no chest pain no palpitation no nausea or vomiting no abdominal pain no diarrhea no blood in the stools no burning with urination no frequency or urgency and no hematuria. On 09/14/2020 patient was seen and examined on the medical floor she oriented 3 in no apparent distress of generalized weakness and body ache she is complaining of cough and shortness of breath she is maintained on oxygen 5 L/m via nasal cannula , she is also complaining of constipation, otherwise she denies any complaints there is no fever or chills no headache or dizziness no chest pain no palpitation no nausea or vomiting no abdominal pain no diarrhea no blood in the stools no burning with urination no frequency or urgency and no hematuria On 09/15/2020 patient was seen and examined on the medical floor she is alert and oriented 3 in no apparent distress she is still complaining of severe weakness and shortness of breath she has occasional cough otherwise she denies any complaints there is no fever or chills no headache or dizziness no chest pain, no palpitation no nausea or vomiting no abdominal pain no diarrhea no blood in the stools no burning with urination no frequency or urgency and no hematuria. On 09/16/2020 patient was seen and examined on the medical floor she is alert and oriented 3 in no apparent distress she is complaining of shortness of breath occasional cough and severe weakness otherwise she denies any complaints there is no fever or chills no headache or dizziness no chest pain no palpitation no nausea or vomiting no abdominal pain no diarrhea no blood in the stools no burning with urination no frequency or urgency and no hematuria. Pr olonged discussion today in regard to discharge planning, at this point patient is refusing to go to any skilled nursing she wants to return to her own home with oxygen and hospital bed and visiting nurses hopefully early next week. On 09/17/2020 patient was seen and examined on the medical floor she is alert and oriented 3 in no apparent distress she is complaining of shortness of breath occasional cough and severe weakness otherwise she denies any complaints there is no fever or chills no headache or dizziness no chest pain no palpitation no nausea or vomiting no abdominal pain no diarrhea no blood in the stools no burning with urination no frequency or urgency and no hematuria. Objective - Vital Signs Vital signs: Vital Signs Temp 97.9 F 09/17/20 10:00 Pulse 56 L 09/17/20 10:00 Resp 16 09/17/20 10:00 BP 137/71 09/17/20 10:00 Pulse Ox 98 09/17/20 10:00 Intake & Output 09/16/20 09/17/20 09/17/20 18:59 06:59 18:59 Intake Total 532 Output Total 300 Balance 532 -300 Weight 81.647 kg Intake: Oral 532 Output: Urine 300 Other: # Voids 2 # Bowel Movements 1 - Exam In general patient is alert and oriented 3 in no apparent distress HEENT head normocephalic and atraumatic Neck is supple no JVD no goiter no lymphadenopathy Chest exam reveals fine crackles in both lung torres no wheezing Cardiac exam reveals regular heart sounds S1 and S2 no gallops no murmurs Abdomen is soft nontender no organomegaly with normal bowel sounds Extremity exam reveals minimal edema no cyanosis or clubbing Neurological examination reveals no gross focal neurological deficit - Labs CBC & Chem 7: 09/17/20 09:11 09/15/20 06:27 Labs: Abnormal Lab Results - Last 24 Hours (Table) 09/16/20 09/16/20 09/17/20 Range/Units 16:58 20:32 07:26 WBC (3.8-10.6) k/uL Hgb (11.4-16.0) gm/dL RDW (11.5-15.5) % Neutrophils # (1.3-7.7) k/uL POC Glucose (mg/dL) 101 H 170 H 102 H (75-99) mg/dL 09/17/20 Range/Units 09:11 WBC 12.9 H (3.8-10.6) k/uL Hgb 11.2 L (11.4-16.0) gm/dL RDW 17.7 H (11.5-15.5) % Neutrophils # 11.1 H (1.3-7.7) k/uL POC Glucose (mg/dL) (75-99) mg/dL Microbiology - Last 24 Hours (Table) 09/11/20 11:39 Blood Culture - Preliminary Blood No Growth after 120 hours Assessment and Plan Plan: 1. Acute hypoxic respiratory failure 2. Covid 19 pneumonia diagnosed 3 weeks ago 3. Underlying history of scleroderma 4. Underlying history of pulmonary fibrosis 5. Underlying history of pulmonary hypertension At this time patient is admitted to medical floor she was restarted on IV Decadron and subcu Lovenox home medications reviewed and reordered Will follow during this admission for medical management pulmonary consultation was requested Continue with current management consult physical therapy and occupational therapy Patient does not wish to return to skilled nursing and is hoping to return home after this admission
[2020-09-17 17:18] LABS: Glucose,Whole Blood 133 mg/dL (75-99)
[2020-09-17 19:06] LABS: African American GFR (CKD) 117.3 (60.0-200.0); Albumin 3.5 g/dL (3.80-4.90); Albumin/Globulin Ratio 1.94 (1.60-3.17); Anion Gap 6.8 mmol/L (4.00-12.00); BUN/Creat Ratio 57.5 Ratio (12.00-20.00); Calcium 9.2 mg/dL (8.7-10.3); Carbon Dioxide 30.2 mmol/L (21.6-31.8); Globulin 1.8 g/dL (1.6-3.3); Non-African American GFR(CKD) 101.2 (60.0-200.0); Total Bilirubin 0.6 mg/dL (0.2-1.2); Total Protein 5.3 g/dL (6.2-8.2)
[2020-09-17 20:04] LABS: Glucose,Whole Blood 172 mg/dL (75-99)
[2020-09-17] MEDS: ASPIRIN 81 MG PO SCH (20:17)
[2020-09-17] MEDS: MELATONIN 5 MG TABLET PO SCH (20:17)
[2020-09-17] MEDS: ATORVASTATIN 20 MG TAB PO SCH (20:17)
[2020-09-17] MEDS: ZINC SULFATE 220 MG CAP PO SCH (20:17)
[2020-09-17] MEDS: ASCORBIC ACID 500 MG TAB PO SCH (20:17)
[2020-09-18] MEDS: NYSTATIN 100,000 UNIT/ML SUSP 500,000 UNIT/5 ML CUP PO SCH ×4 (05:14→23:10)
[2020-09-18] MEDS: INSULIN ASPART (NovoLOG) 100 UNIT/ML VIAL SQ SCH ×4 (07:16→20:08)
[2020-09-18] MEDS: NIFEdipine XL 30 MG TAB.ER.24 PO SCH ×2 (07:17→20:45)
[2020-09-18] MEDS: GABAPENTIN 100 MG CAP PO SCH ×2 (07:17→20:45)
[2020-09-18] MEDS: METOPROLOL TARTRATE 12.5 MG TAB PO SCH ×2 (07:17→20:45)
[2020-09-18] MEDS: FAMOTIDINE 20 MG TAB PO SCH ×2 (07:17→20:45)
[2020-09-18 07:18] LABS: Glucose,Whole Blood 117 mg/dL (75-99)
[2020-09-18] MEDS: HYDROCORTISONE SUPPOSITORY 25 MG SUPP RECTAL SCH ×2 (08:00→19:14)
[2020-09-18] MEDS: LACTULOSE 20 GM/30 ML CUP PO SCH (08:02)
[2020-09-18] MEDS: ENOXAPARIN 40 MG/0.4 ML SYRINGE SQ SCH (08:02)
[2020-09-18] MEDS: methylPREDNISolone SOD SUCCI 40 MG/ML 1 ML VIAL IV SCH ×3 (08:03→23:09)
[2020-09-18] MEDS: CHOLECALCIFEROL 1,000 UNIT TAB PO SCH (08:03)
[2020-09-18 10:00] LABS: Anisocytosis Slight; Basophils # (A) 0.1 k/uL (0-0.2); Basophils % (A) 1 %; Eosinophils # (A) 0.2 k/uL (0-0.7); Eosinophils % (A) 1 %; HCT 34.6 % (34.0-46.0); HGB 10.8 gm/dL (11.4-16.0); Hypochromasia Slight; Lymphocytes # (A) 0.8 k/uL (1.0-4.8); Lymphocytes % (A) 6 %; MCH 27.4 pg (25.0-35.0); MCHC 31.2 g/dL (31.0-37.0); MCV 87.8 fL (80.0-100.0); Monocytes # (A) 0.6 k/uL (0-1.0); Monocytes % (A) 5 %; Neutrophils # (A) 11.2 k/uL (1.3-7.7); Neutrophils % (A) 87 %; Platelet Count 186 k/uL (150-450); RBC 3.94 m/uL (3.80-5.40); RDW 18.1 % (11.5-15.5); WBC 12.9 k/uL (3.8-10.6)
[2020-09-18 11:31] LABS: Glucose,Whole Blood 107 mg/dL (75-99)
--- NOTE | 2020-09-18 13:45 | P.PN ---
Subjective Progress Note Date: 09/18/20 Claribel Ruiz, is a 74-year-old female who presented to [facility] emergency room with worsening shortness of breath, patient had a prolonged admission at [facility] for Covid 19 pneumonia with acute respiratory failure she was treated with Remdesevir, IV Steroids, convalescent plasma, and subcu Lovenox she improved very slowly she was transferred to correction for rehab however after 24 hours patient developed severe shortness of breath and was transferred back to emergency room patient was evaluated in the emergency room CT angiogram of the chest was done in the emergency room due to severe shortness of breath or was no evidence of pulmonary embolism however patient had evidence of ongoing bilateral diffuse airspace disease she was restarted on IV Solu-Medrol and subcu Lovenox and admitted to medical floor pulmonary consultation was requested Patient has multiple underlying medical problems including scleroderma, history of pulmonary fibrosis and secondary pulmonary hypertension, history of hypertension, history of scoliosis. On review of system patient is complaining of generalized weakness and generalized muscle aches she is also complaining of cough and shortness of breath otherwise she denies any complaints there is no fever or chills no headache or dizziness no chest pain no palpitation no nausea or vomiting no abdominal pain no diarrhea and no urinary symptoms. On 09/13/2020 patient was seen and examined on the medical floor she oriented 3 in no apparent distress of generalized weakness and body ache she is complaining of cough and shortness of breath she is maintained on oxygen 5 L/m via nasal cannula otherwise she denies any complaints there is no fever or chills no headache or dizziness no chest pain no palpitation no nausea or vomiting no abdominal pain no diarrhea no blood in the stools no burning with urination no frequency or urgency and no hematuria. On 09/14/2020 patient was seen and examined on the medical floor she oriented 3 in no apparent distress of generalized weakness and body ache she is complaining of cough and shortness of breath she is maintained on oxygen 5 L/m via nasal cannula , she is also complaining of constipation, otherwise she denies any complaints there is no fever or chills no headache or dizziness no chest pain no palpitation no nausea or vomiting no abdominal pain no diarrhea no blood in the stools no burning with urination no frequency or urgency and no hematuria On 09/15/2020 patient was seen and examined on the medical floor she is alert and oriented 3 in no apparent distress she is still complaining of severe weakness and shortness of breath she has occasional cough otherwise she denies any complaints there is no fever or chills no headache or dizziness no chest pain, no palpitation no nausea or vomiting no abdominal pain no diarrhea no blood in the stools no burning with urination no frequency or urgency and no hematuria. On 09/16/2020 patient was seen and examined on the medical floor she is alert and oriented 3 in no apparent distress she is complaining of shortness of breath occasional cough and severe weakness otherwise she denies any complaints there is no fever or chills no headache or dizziness no chest pain no palpitation no nausea or vomiting no abdominal pain no diarrhea no blood in the stools no burning with urination no frequency or urgency and no hematuria. Pr olonged discussion today in regard to discharge planning, at this point patient is refusing to go to any correction she wants to return to her own home with oxygen and hospital bed and visiting nurses hopefully early next week. On 09/17/2020 patient was seen and examined on the medical floor she is alert and oriented 3 in no apparent distress she is complaining of shortness of breath occasional cough and severe weakness otherwise she denies any complaints there is no fever or chills no headache or dizziness no chest pain no palpitation no nausea or vomiting no abdominal pain no diarrhea no blood in the stools no burning with urination no frequency or urgency and no hematuria. On 09/18/2020 patient was seen and examined on the medical floor, she is complaining of shortness of breath occasional cough and severe weakness otherwise she denies any complaints there is no fever or chills no headache or dizziness no chest pain no palpitation no nausea or vomiting no abdominal pain no diarrhea no blood in the stools no burning with urination no frequency or urgency and no hematuria. Patient will require home oxygen, hospital bed, and lift chair, will make arrangement on Saturday, plan is to discharge to home on Saturday if all above is available, patient is still refusing to go to any correction for rehab. Objective - Vital Signs Vital signs: Vital Signs Temp 97.5 F L 09/18/20 06:00 Pulse 63 09/18/20 08:02 Resp 16 09/18/20 08:02 BP 142/82 09/18/20 06:00 Pulse Ox 93 L 12/20/20 09:07 Intake & Output 09/17/20 09/18/20 09/18/20 18:59 06:59 18:59 Other: Voiding Method Diaper Diaper Incontinent Incontinent # Voids 3 - Exam In general patient is alert and oriented 3 in no apparent distress HEENT head normocephalic and atraumatic Neck is supple no JVD no goiter no lymphadenopathy Chest exam reveals fine crackles in both lung torres no wheezing Cardiac exam reveals regular heart sounds S1 and S2 no gallops no murmurs Abdomen is soft nontender no organomegaly with normal bowel sounds Extremity exam reveals minimal edema no cyanosis or clubbing Neurological examination reveals no gross focal neurological deficit - Labs CBC & Chem 7: 09/18/20 09:17 09/17/20 09:11 Labs: Abnormal Lab Results - Last 24 Hours (Table) 09/17/20 09/17/20 09/17/20 Range/Units 09:11 09:11 12:03 WBC 12.9 H (3.8-10.6) k/uL Hgb 11.2 L (11.4-16.0) gm/dL RDW 17.7 H (11.5-15.5) % Neutrophils # 11.1 H (1.3-7.7) k/uL Lymphocytes # (1.0-4.8) k/uL Creatinine 0.4 L (0.6-1.5) mg/dL BUN/Creatinine Ratio 57.50 H (12.00-20.00) Ratio Glucose 172 H (70-110) mg/dL POC Glucose (mg/dL) 133 H (75-99) mg/dL AST 11 L (13-35) U/L Total Protein 5.3 L (6.2-8.2) g/dL Albumin 3.50 L (3.80-4.90) g/dL 09/17/20 09/17/20 09/18/20 Range/Units 17:16 20:03 07:15 WBC (3.8-10.6) k/uL Hgb (11.4-16.0) gm/dL RDW (11.5-15.5) % Neutrophils # (1.3-7.7) k/uL Lymphocytes # (1.0-4.8) k/uL Creatinine (0.6-1.5) mg/dL BUN/Creatinine Ratio (12.00-20.00) Ratio Glucose (70-110) mg/dL POC Glucose (mg/dL) 133 H 172 H 117 H (75-99) mg/dL AST (13-35) U/L Total Protein (6.2-8.2) g/dL Albumin (3.80-4.90) g/dL 09/18/20 Range/Units 09:17 WBC 12.9 H (3.8-10.6) k/uL Hgb 10.8 L (11.4-16.0) gm/dL RDW 18.1 H (11.5-15.5) % Neutrophils # 11.2 H (1.3-7.7) k/uL Lymphocytes # 0.8 L (1.0-4.8) k/uL Creatinine (0.6-1.5) mg/dL BUN/Creatinine Ratio (12.00-20.00) Ratio Glucose (70-110) mg/dL POC Glucose (mg/dL) (75-99) mg/dL AST (13-35) U/L Total Protein (6.2-8.2) g/dL Albumin (3.80-4.90) g/dL Microbiology - Last 24 Hours (Table) 09/11/20 11:39 Blood Culture - Final Blood No Growth after 144 hours Assessment and Plan Plan: 1. Acute hypoxic respiratory failure 2. Covid 19 pneumonia diagnosed 3 weeks ago 3. Underlying history of scleroderma 4. Underlying history of pulmonary fibrosis 5. Underlying history of pulmonary hypertension At this time patient is admitted to medical floor she was restarted on IV Decadron and subcu Lovenox home medications reviewed and reordered Will follow during this admission for medical management pulmonary consultation was requested Continue with current management consult physical therapy and occupational therapy Patient does not wish to return to correction and is hoping to return home after this admission
[2020-09-18] MEDS: HYDROCORTISONE 2.5% RECTAL CREAM 30 GM TUBE RECTAL SCH ×2 (13:49→19:14)
[2020-09-18 16:39] LABS: Glucose,Whole Blood 132 mg/dL (75-99)
[2020-09-18 17:24] LABS: African American GFR (CKD) 117.3 (60.0-200.0); Albumin 3.4 g/dL (3.80-4.90); Anion Gap 5.9 mmol/L (4.00-12.00); Carbon Dioxide 31.1 mmol/L (21.6-31.8); Globulin 1.7 g/dL (1.6-3.3); Non-African American GFR(CKD) 101.2 (60.0-200.0); Potassium 4.3 mmol/L (3.5-5.5); Total Bilirubin 0.6 mg/dL (0.3-1.2); Total Protein 5.1 g/dL (6.2-8.2)
[2020-09-18 20:06] LABS: Glucose,Whole Blood 83 mg/dL (75-99)
[2020-09-18] MEDS: ATORVASTATIN 20 MG TAB PO SCH (20:45)
[2020-09-18] MEDS: ASPIRIN 81 MG PO SCH (20:45)
[2020-09-18] MEDS: MELATONIN 5 MG TABLET PO SCH (20:45)
[2020-09-18] MEDS: ASCORBIC ACID 500 MG TAB PO SCH (20:45)
[2020-09-18] MEDS: ZINC SULFATE 220 MG CAP PO SCH (20:45)
[2020-09-18] MEDS: MELOXICAM 7.5 MG TAB PO PRN (20:54)
[2020-09-19] MEDS: NYSTATIN 100,000 UNIT/ML SUSP 500,000 UNIT/5 ML CUP PO SCH ×4 (03:32→23:49)
[2020-09-19] MEDS: HYDROCORTISONE 2.5% RECTAL CREAM 30 GM TUBE RECTAL SCH ×3 (03:32→20:44)
[2020-09-19 06:53] LABS: Anisocytosis Slight; Basophils # (A) 0.1 k/uL (0-0.2); Basophils % (A) 1 %; Eosinophils # (A) 0.2 k/uL (0-0.7); Eosinophils % (A) 1 %; HCT 34.8 % (34.0-46.0); Hypochromasia Slight; Lymphocytes # (A) 1.9 k/uL (1.0-4.8); Lymphocytes % (A) 15 %; MCH 27.8 pg (25.0-35.0); MCHC 31.8 g/dL (31.0-37.0); MCV 87.5 fL (80.0-100.0); Mean Platelet Volume 8.3; Monocytes # (A) 0.8 k/uL (0-1.0); Monocytes % (A) 6 %; Neutrophils # (A) 9.8 k/uL (1.3-7.7); Neutrophils % (A) 77 %; Platelet Count 231 k/uL (150-450); RBC 3.97 m/uL (3.80-5.40); RDW 18.4 % (11.5-15.5); WBC 12.8 k/uL (3.8-10.6)
[2020-09-19 06:57] LABS: Glucose,Whole Blood 71 mg/dL (75-99)
[2020-09-19] MEDS: INSULIN ASPART (NovoLOG) 100 UNIT/ML VIAL SQ SCH ×4 (09:51→20:44)
[2020-09-19] MEDS: traMADol 50 MG TAB PO PRN ×2 (09:51→20:42)
[2020-09-19] MEDS: CHOLECALCIFEROL 1,000 UNIT TAB PO SCH (09:52)
[2020-09-19] MEDS: LACTULOSE 20 GM/30 ML CUP PO SCH (09:52)
[2020-09-19] MEDS: methylPREDNISolone SOD SUCCI 40 MG/ML 1 ML VIAL IV SCH ×3 (09:52→23:50)
[2020-09-19] MEDS: ENOXAPARIN 40 MG/0.4 ML SYRINGE SQ SCH (09:52)
[2020-09-19] MEDS: FAMOTIDINE 20 MG TAB PO SCH ×2 (09:52→20:44)
[2020-09-19] MEDS: NIFEdipine XL 30 MG TAB.ER.24 PO SCH ×2 (09:52→20:44)
[2020-09-19] MEDS: METOPROLOL TARTRATE 12.5 MG TAB PO SCH ×2 (09:52→20:44)
[2020-09-19] MEDS: GABAPENTIN 100 MG CAP PO SCH ×2 (09:53→20:43)
[2020-09-19] MEDS: HYDROCORTISONE SUPPOSITORY 25 MG SUPP RECTAL SCH ×2 (09:53→20:44)
[2020-09-19 11:03] LABS: African American GFR (CKD) 117.3 (60.0-200.0); Albumin 3.3 g/dL (3.80-4.90); Albumin/Globulin Ratio 1.94 (1.60-3.17); Anion Gap 4.3 mmol/L (4.00-12.00); Carbon Dioxide 30.7 mmol/L (21.6-31.8); Globulin 1.7 g/dL (1.6-3.3); Non-African American GFR(CKD) 101.2 (60.0-200.0); Potassium 4.6 mmol/L (3.5-5.5); Total Bilirubin 0.7 mg/dL (0.2-1.2)
[2020-09-19 17:10] LABS: Glucose,Whole Blood 141 mg/dL (75-99)
--- NOTE | 2020-09-19 18:24 | P.PN ---
Subjective Progress Note Date: 09/19/20 Claribel Ruiz, is a 74-year-old female who presented to [facility] emergency room with worsening shortness of breath, patient had a prolonged admission at [facility] for Covid 19 pneumonia with acute respiratory failure she was treated with Remdesevir, IV Steroids, convalescent plasma, and subcu Lovenox she improved very slowly she was transferred to detention for rehab however after 24 hours patient developed severe shortness of breath and was transferred back to emergency room patient was evaluated in the emergency room CT angiogram of the chest was done in the emergency room due to severe shortness of breath or was no evidence of pulmonary embolism however patient had evidence of ongoing bilateral diffuse airspace disease she was restarted on IV Solu-Medrol and subcu Lovenox and admitted to medical floor pulmonary consultation was requested Patient has multiple underlying medical problems including scleroderma, history of pulmonary fibrosis and secondary pulmonary hypertension, history of hypertension, history of scoliosis. On review of system patient is complaining of generalized weakness and generalized muscle aches she is also complaining of cough and shortness of breath otherwise she denies any complaints there is no fever or chills no headache or dizziness no chest pain no palpitation no nausea or vomiting no abdominal pain no diarrhea and no urinary symptoms. On 09/13/2020 patient was seen and examined on the medical floor she oriented 3 in no apparent distress of generalized weakness and body ache she is complaining of cough and shortness of breath she is maintained on oxygen 5 L/m via nasal cannula otherwise she denies any complaints there is no fever or chills no headache or dizziness no chest pain no palpitation no nausea or vomiting no abdominal pain no diarrhea no blood in the stools no burning with urination no frequency or urgency and no hematuria. On 09/14/2020 patient was seen and examined on the medical floor she oriented 3 in no apparent distress of generalized weakness and body ache she is complaining of cough and shortness of breath she is maintained on oxygen 5 L/m via nasal cannula , she is also complaining of constipation, otherwise she denies any complaints there is no fever or chills no headache or dizziness no chest pain no palpitation no nausea or vomiting no abdominal pain no diarrhea no blood in the stools no burning with urination no frequency or urgency and no hematuria On 09/15/2020 patient was seen and examined on the medical floor she is alert and oriented 3 in no apparent distress she is still complaining of severe weakness and shortness of breath she has occasional cough otherwise she denies any complaints there is no fever or chills no headache or dizziness no chest pain, no palpitation no nausea or vomiting no abdominal pain no diarrhea no blood in the stools no burning with urination no frequency or urgency and no hematuria. On 09/16/2020 patient was seen and examined on the medical floor she is alert and oriented 3 in no apparent distress she is complaining of shortness of breath occasional cough and severe weakness otherwise she denies any complaints there is no fever or chills no headache or dizziness no chest pain no palpitation no nausea or vomiting no abdominal pain no diarrhea no blood in the stools no burning with urination no frequency or urgency and no hematuria. Pr olonged discussion today in regard to discharge planning, at this point patient is refusing to go to any detention she wants to return to her own home with oxygen and hospital bed and visiting nurses hopefully early next week. On 09/17/2020 patient was seen and examined on the medical floor she is alert and oriented 3 in no apparent distress she is complaining of shortness of breath occasional cough and severe weakness otherwise she denies any complaints there is no fever or chills no headache or dizziness no chest pain no palpitation no nausea or vomiting no abdominal pain no diarrhea no blood in the stools no burning with urination no frequency or urgency and no hematuria. On 09/18/2020 patient was seen and examined on the medical floor, she is complaining of shortness of breath occasional cough and severe weakness otherwise she denies any complaints there is no fever or chills no headache or dizziness no chest pain no palpitation no nausea or vomiting no abdominal pain no diarrhea no blood in the stools no burning with urination no frequency or urgency and no hematuria. Patient will require home oxygen, hospital bed, and lift chair, will make arrangement on Saturday, plan is to discharge to home on Saturday if all above is available, patient is still refusing to go to any detention for rehab. On 09/19/2020 patient was seen and examined on the medical floor she is alert and oriented 3 in no apparent distress she stated that she is feeling better her shortness of breath and her generalized weakness are improving she is still having some cough otherwise she denies any symptoms there is no fever or chills no headache or dizziness no chest pain no nausea or vomiting no abdominal pain no diarrhea no blood in the stools no burning with urination no frequency or urgency and no hematuria Objective - Vital Signs Vital signs: Vital Signs Temp 97.6 F 09/19/20 14:00 Pulse 58 L 09/19/20 14:00 Resp 18 09/19/20 14:00 BP 106/65 09/19/20 14:00 Pulse Ox 98 09/19/20 14:00 Intake & Output 09/18/20 09/19/20 09/19/20 18:59 06:59 18:59 Output Total 1 1 Balance -1 -1 Output: Stool 1 1 Other: Voiding Method Diaper Diaper Diaper Incontinent Incontinent Incontinent # Voids 4 1 - Exam In general patient is alert and oriented 3 in no apparent distress HEENT head normocephalic and atraumatic Neck is supple no JVD no goiter no lymphadenopathy Chest exam reveals fine crackles in both lung torres no wheezing Cardiac exam reveals regular heart sounds S1 and S2 no gallops no murmurs Abdomen is soft nontender no organomegaly with normal bowel sounds Extremity exam reveals minimal edema no cyanosis or clubbing Neurological examination reveals no gross focal neurological deficit - Labs CBC & Chem 7: 09/19/20 05:59 09/19/20 05:59 Labs: Abnormal Lab Results - Last 24 Hours (Table) 09/19/20 09/19/20 09/19/20 Range/Units 05:59 05:59 06:55 WBC 12.8 H (3.8-10.6) k/uL Hgb 11.0 L (11.4-16.0) gm/dL RDW 18.4 H (11.5-15.5) % Neutrophils # 9.8 H (1.3-7.7) k/uL Creatinine 0.4 L (0.6-1.5) mg/dL BUN/Creatinine Ratio 50.00 H (12.00-20.00) Ratio POC Glucose (mg/dL) 71 L (75-99) mg/dL Total Protein 5.0 L (6.2-8.2) g/dL Albumin 3.30 L (3.80-4.90) g/dL 09/19/20 Range/Units 17:08 WBC (3.8-10.6) k/uL Hgb (11.4-16.0) gm/dL RDW (11.5-15.5) % Neutrophils # (1.3-7.7) k/uL Creatinine (0.6-1.5) mg/dL BUN/Creatinine Ratio (12.00-20.00) Ratio POC Glucose (mg/dL) 141 H (75-99) mg/dL Total Protein (6.2-8.2) g/dL Albumin (3.80-4.90) g/dL Assessment and Plan Plan: 1. Acute hypoxic respiratory failure 2. Covid 19 pneumonia diagnosed 3 weeks ago 3. Underlying history of scleroderma 4. Underlying history of pulmonary fibrosis 5. Underlying history of pulmonary hypertension At this time patient is admitted to medical floor she was restarted on IV Decadron and subcu Lovenox home medications reviewed and reordered Will follow during this admission for medical management pulmonary consultation was requested Continue with current management consult physical therapy and occupational therapy Patient does not wish to return to detention and is hoping to return home a fter this admission
[2020-09-19 20:27] LABS: Glucose,Whole Blood 158 mg/dL (75-99)
[2020-09-19] MEDS: MELATONIN 5 MG TABLET PO SCH (20:43)
[2020-09-19] MEDS: ASCORBIC ACID 500 MG TAB PO SCH (20:43)
[2020-09-19] MEDS: ASPIRIN 81 MG PO SCH (20:43)
[2020-09-19] MEDS: ATORVASTATIN 20 MG TAB PO SCH (20:44)
[2020-09-19] MEDS: ZINC SULFATE 220 MG CAP PO SCH (20:44)
[2020-09-20] MEDS: NYSTATIN 100,000 UNIT/ML SUSP 500,000 UNIT/5 ML CUP PO SCH ×2 (05:12→13:41)
[2020-09-20] MEDS: HYDROCORTISONE 2.5% RECTAL CREAM 30 GM TUBE RECTAL SCH ×2 (05:12→13:41)
[2020-09-20 07:09] LABS: Glucose,Whole Blood 80 mg/dL (75-99)
[2020-09-20] MEDS: INSULIN ASPART (NovoLOG) 100 UNIT/ML VIAL SQ SCH ×3 (07:18→17:01)
[2020-09-20] MEDS: METOPROLOL TARTRATE 12.5 MG TAB PO SCH (07:18)
[2020-09-20] MEDS: HYDROCORTISONE SUPPOSITORY 25 MG SUPP RECTAL SCH (07:19)
[2020-09-20] MEDS: GABAPENTIN 100 MG CAP PO SCH (08:03)
[2020-09-20] MEDS: CHOLECALCIFEROL 1,000 UNIT TAB PO SCH (08:03)
[2020-09-20] MEDS: FAMOTIDINE 20 MG TAB PO SCH (08:03)
[2020-09-20] MEDS: LACTULOSE 20 GM/30 ML CUP PO SCH (08:03)
[2020-09-20] MEDS: methylPREDNISolone SOD SUCCI 40 MG/ML 1 ML VIAL IV SCH ×2 (08:03→17:01)
[2020-09-20] MEDS: NIFEdipine XL 30 MG TAB.ER.24 PO SCH (08:04)
[2020-09-20] MEDS: ENOXAPARIN 40 MG/0.4 ML SYRINGE SQ SCH (08:04)
[2020-09-20] MEDS: traMADol 50 MG TAB PO PRN ×2 (08:12→17:04)
[2020-09-20 08:22] LABS: Anisocytosis Slight; Basophils % (A) 0 %; Eosinophils # (A) 0.1 k/uL (0-0.7); Eosinophils % (A) 1 %; HCT 36.1 % (34.0-46.0); HGB 11.4 gm/dL (11.4-16.0); Hypochromasia Slight; Lymphocytes # (A) 1.3 k/uL (1.0-4.8); Lymphocytes % (A) 12 %; MCH 28.1 pg (25.0-35.0); MCHC 31.7 g/dL (31.0-37.0); MCV 88.7 fL (80.0-100.0); Mean Platelet Volume 7.7; Monocytes # (A) 0.6 k/uL (0-1.0); Monocytes % (A) 5 %; Neutrophils # (A) 9.4 k/uL (1.3-7.7); Neutrophils % (A) 82 %; Platelet Count 217 k/uL (150-450); RBC 4.08 m/uL (3.80-5.40); RDW 18.4 % (11.5-15.5); WBC 11.6 k/uL (3.8-10.6)
[2020-09-20 11:43] LABS: Glucose,Whole Blood 99 mg/dL (75-99)
--- NOTE | 2020-09-20 15:25 | P.DS ---
Providers Date of admission: 09/11/20 15:22 Expected date of discharge: 09/20/20 Attending physician: Akbar Swenson Consults: 09/12/20 15:59 Consult Physician Routine Consulting Provider: Sara Ortez Consult Reason/Comments: shortness of breath Do you want consulting provider notified?: Yes 09/12/20 16:09 Consult Physician Routine Consulting Provider: Kye Montanez Consult Reason/Comments: elevated troponin Do you want consulting provider notified?: Yes Primary care physician: Akbar Swenson [facility] Course: Diagnosis on discharge: 1. Acute hypoxic respiratory failure 2. Covid 19 pneumonia diagnosed 3 weeks ago 3. Underlying history of scleroderma 4. Underlying history of pulmonary fibrosis 5. Underlying history of pulmonary hypertension 6. Generalized weakness with physical debility and gait disturbance Hospital course: Claribel Ruiz, is a 74-year-old female who presented to [facility] emergency room with worsening shortness of breath, patient had a prolonged admission at [facility] for Covid 19 pneumonia with acute respiratory failure she was treated with Remdesevir, IV Steroids, convalescent plasma, and subcu Lovenox she improved very slowly she was transferred to [facility]pc for rehab however after 24 hours patient developed severe shortness of breath and was transferred back to emergency room patient was evaluated in the emergency room CT angiogram of the chest was done in the emergency room due to severe shortness of breath or was no evidence of pulmonary embolism however patient had evidence of ongoing bilateral diffuse airspace disease she was restarted on IV Solu-Medrol and subcu Lovenox and admitted to medical floor pulmonary consultation was requested Patient has multiple underlying medical problems including scleroderma, history of pulmonary fibrosis and secondary pulmonary hypertension, history of hypertension, history of scoliosis. On review of system patient is complaining of generalized weakness and generalized muscle aches she is also complaining of cough and shortness of breath otherwise she denies any complaints there is no fever or chills no headache or dizziness no chest pain no palpitation no nausea or vomiting no abdominal pain no diarrhea and no urinary symptoms. On 09/13/2020 patient was seen and examined on the medical floor she oriented 3 in no apparent distress of generalized weakness and body ache she is complaining of cough and shortness of breath she is maintained on oxygen 5 L/m via nasal cannula otherwise she denies any complaints there is no fever or chills no headache or dizziness no chest pain no palpitation no nausea or vomiting no abdominal pain no diarrhea no blood in the stools no burning with urination no frequency or urgency and no hematuria. On 09/14/2020 patient was seen and examined on the medical floor she oriented 3 in no apparent distress of generalized weakness and body ache she is complaining of cough and shortness of breath she is maintained on oxygen 5 L/m via nasal cannula , she is also complaining of constipation, otherwise she denies any complaints there is no fever or chills no headache or dizziness no chest pain no palpitation no nausea or vomiting no abdominal pain no diarrhea no blood in the stools no burning with urination no frequency or urgency and no hematuria On 09/15/2020 patient was seen and examined on the medical floor she is alert and oriented 3 in no apparent distress she is still complaining of severe weakness and shortness of breath she has occasional cough otherwise she denies any complaints there is no fever or chills no headache or dizziness no chest pain, no palpitation no nausea or vomiting no abdominal pain no diarrhea no blood in the stools no burning with urination no frequency or urgency and no hematuria. On 09/16/2020 patient was seen and examined on the medical floor she is alert and oriented 3 in no apparent distress she is complaining of shortness of breath occasional cough and severe weakness otherwise she denies any complaints there is no fever or chills no headache or dizziness no chest pain no palpitation no nausea or vomiting no abdominal pain no diarrhea no blood in the stools no burning with urination no frequency or urgency and no hematuria. Prolonged discussion today in regard to discharge planning, at this point patient is refusing to go to any fpc she wants to return to her own home with oxygen and hospital bed and visiting nurses hopefully early next week. On 09/17/2020 patient was seen and examined on the medical floor she is alert and oriented 3 in no apparent distress she is complaining of shortness of breath occasional cough and severe weakness otherwise she denies any complaints there is no fever or chills no headache or dizziness no chest pain no palpitation no nausea or vomiting no abdominal pain no diarrhea no blood in the stools no burning with urination no frequency or urgency and no hematuria. On 09/18/2020 patient was seen and examined on the medical floor, she is complaining of shortness of breath occasional cough and severe weakness otherwise she denies any complaints there is no fever or chills no headache or dizziness no chest pain no palpitation no nausea or vomiting no abdominal pain no diarrhea no blood in the stools no burning with urination no frequency or urgency and no hematuria. Patient will require home oxygen, hospital bed, and lift chair, will make arrangement on Saturday, plan is to discharge to home on Saturday if all above is available, patient is still refusing to go to any fpc for rehab. On 09/19/2020 patient was seen and examined on the medical floor she is alert and oriented 3 in no apparent distress she stated that she is feeling better her shortness of breath and her generalized weakness are improving she is still having some cough otherwise she denies any symptoms there is no fever or chills no headache or dizziness no chest pain no nausea or vomiting no abdominal pain no diarrhea no blood in the stools no burning with urination no frequency or urgency and no hematuria On 09/20/2020 patient was seen and examined on the medical floor she is alert and oriented 3 in no apparent distress she is still complaining of shortness of breath with any activity and her oxygen requirement are ranging between 2-4 L/m she has minimal cough she is still complaining of severe weakness and gait disturbance however initially she was refusing to go to another any fpc for rehabilitation she was insisting on going home however at this point patient is willing to go to [facility] for some rehabilitation . Patient Condition at Discharge: Fair Plan - Discharge Summary Discharge Rx Participant: No New Discharge Prescriptions: New Atorvastatin [Lipitor] 20 mg PO HS tab Continue NIFEdipine [Nifedical Xl] 30 mg PO BID@0800,1999 Cholecalciferol [Vitamin D3 (25 Mcg = 1000 Iu)] 1,000 unit PO DAILY Acetaminophen [Tylenol Arthritis] 650 mg PO Q8H PRN PRN Reason: Pain Or Fever > 100.5 Pseudoephedrine 12Hr [Sudafed 12 Hour] 120 mg PO Q12H PRN PRN Reason: Cold Symptoms Mycophenolate Mofetil [Cellcept] 500 mg PO TID@0500,1300,2100 Alendronate Sodium [Binosto] 70 mg PO WE traMADol HCL 50 mg PO Q8H PRN PRN Reason: Pain Celecoxib [CeleBREX] 200 mg PO Q12H PRN PRN Reason: Pain Hydrocortisone Suppository [Anusol-Hc] 25 mg RECTAL BID supp Aspirin 81 mg PO HS chew Metoprolol Tartrate [Lopressor] 12.5 mg PO BID tab Melatonin 5 mg PO HS tablet Famotidine [Pepcid] 20 mg PO BID tab Ascorbic Acid [Vitamin C] 1,000 mg PO HS Zinc Sulfate [Orazinc] 220 mg PO HS Gabapentin [Neurontin] 200 mg PO BID@799,1999 Hydrocortisone Pr Cream [Proctosol-Hc 2.5%] 1 applic RECTAL TID@0500,1300,2099 Nystatin 100,000 Unit/ml Susp [Mycostatin Oral Susp] 500,000 unit PO Q6H predniSONE 10 mg PO DAILY 30 Days #60 tab Discharge Medication List NIFEdipine [Nifedical Xl] 30 mg PO BID@799,199906/28/15 [History] Acetaminophen [Tylenol Arthritis] 650 mg PO Q8H PRN 08/27/20 [History] Alendronate Sodium [Binosto] 70 mg PO WE 08/27/20 [History] Cholecalciferol [Vitamin D3 (25 Mcg = 1000 Iu)] 1,000 unit PO DAILY 08/27/20 [History] Mycophenolate Mofetil [Cellcept] 500 mg PO TID@0500,1300,2100 08/27/20 [History] Pseudoephedrine 12Hr [Sudafed 12 Hour] 120 mg PO Q12H PRN 08/27/20 [History] traMADol HCL 50 mg PO Q8H PRN 08/27/20 [History] Celecoxib [CeleBREX] 200 mg PO Q12H PRN 08/29/20 [History] Aspirin 81 mg PO HS chew 09/10/20 [Rx] Famotidine [Pepcid] 20 mg PO BID tab 09/10/20 [Rx] Hydrocortisone Suppository [Anusol-Hc] 25 mg RECTAL BID supp 09/10/20 [Rx] Melatonin 5 mg PO HS tablet 09/10/20 [Rx] Metoprolol Tartrate [Lopressor] 12.5 mg PO BID tab 09/10/20 [Rx] Ascorbic Acid [Vitamin C] 1,000 mg PO HS 09/11/20 [History] Gabapentin [Neurontin] 200 mg PO BID@799,199909/11/20 [History] Hydrocortisone Pr Cream [Proctosol-Hc 2.5%] 1 applic RECTAL TID@0500,1300,2100 09/11/20 [History] Nystatin 100,000 Unit/ml Susp [Mycostatin Oral Susp] 500,000 unit PO Q6H 09/11/20 [History] Zinc Sulfate [Orazinc] 220 mg PO HS 09/11/20 [History] Atorvastatin [Lipitor] 20 mg PO HS tab 09/20/20 [Rx] predniSONE 10 mg PO DAILY 30 Days #60 tab 09/20/20 [Rx] Follow up Appointment(s)/Referral(s): Darcy Araujo MD [STAFF PHYSICIAN] - 1 Week (office is closed Please call to make apoointment ) [facility] [NON-STAFF] - (Please call [facility] if you have questions about your new equipment. ) [facility], [NON-STAFF] - Kelsie Schwartz MD [STAFF PHYSICIAN] - 10/06/20 10:45 am
[2020-09-20 15:50] VITALS: BP 128/47; PULSE 60; RESP 17; TEMP 97.8
[2020-09-20 16:50] LABS: African American GFR (CKD) 128.9 (60.0-200.0); Albumin 3.7 g/dL (3.80-4.90); Albumin/Globulin Ratio 2.18 (1.60-3.17); Anion Gap 8.2 mmol/L (4.00-12.00); BUN/Creat Ratio 46.67 Ratio (12.00-20.00); Calcium 8.8 mg/dL (8.7-10.3); Carbon Dioxide 30.8 mmol/L (21.6-31.8); Globulin 1.7 g/dL (1.6-3.3); Non-African American GFR(CKD) 111.2 (60.0-200.0); Potassium 4.1 mmol/L (3.5-5.5); Total Bilirubin 0.7 mg/dL (0.3-1.2); Total Protein 5.4 g/dL (6.2-8.2)
== END 2020-09-20 17:33 | DRG 177 ==
LOC: EC 10:49 → 4SSUR 15:22
PROVIDERS: ADMIT Internal Medicine; ATTEND Internal Medicine
DX: U07.1 COVID-19 (principal); J12.89 Other viral pneumonia; J96.01 Acute respiratory failure with hypoxia; I27.29 Other secondary pulmonary hypertension; M34.9 Systemic sclerosis, unspecified; J84.10 Pulmonary fibrosis, unspecified; E86.0 Dehydration; I10 Essential (primary) hypertension; I08.1 Rheumatic disorders of both mitral and tricuspid valves; I73.00 Raynaud's syndrome without gangrene; M41.9 Scoliosis, unspecified; I83.90 Asymptomatic varicose veins of unspecified lower extremity; M19.90 Unspecified osteoarthritis, unspecified site; R26.9 Unspecified abnormalities of gait and mobility; R79.89 Other specified abnormal findings of blood chemistry; R53.81 Other malaise; R53.1 Weakness; R32 Unspecified urinary incontinence; Z79.82 Long term (current) use of aspirin; Z79.899 Other long term (current) drug therapy; Z79.52 Long term (current) use of systemic steroids; Z88.1 Allergy status to other antibiotic agents; Z91.040 Latex allergy status; Z82.49 Family history of ischemic heart disease and other diseases of the circulatory system; Z82.5 Family history of asthma and other chronic lower respiratory diseases; Z82.0 Family history of epilepsy and other diseases of the nervous system
CPT/HCPCS: 36415; 71046; 71275; 80048; 80053; 82550; 83605; 83735; 83880; 84484; 85025; 85379; 85610; 85730; 87040; 93005; 93308; 94640; 94760; 96372; 96374; 96375; 99285

== ENCOUNTER 2020-10-06 15:43 | Inpatient (IN) | payer MEDICARE ==
[2020-10-06] MEDS ORDERED: HYDROCORTISONE 2.5% RECTAL CREAM 30 GM TUBE RECTAL PRN (20:11)
[2020-10-06] MEDS ORDERED: ACETAMINOPHEN TAB 325 MG TAB PO PRN (20:13)
[2020-10-06] MEDS ORDERED: ONDANSETRON 4 MG/2 ML VIAL IVP PRN (20:13)
[2020-10-06] MEDS: SODIUM CHLORIDE 0.9% 1,000 ML IV SCH (20:40)
[2020-10-06] MEDS: METOPROLOL TARTRATE 12.5 MG TAB PO SCH (20:41)
[2020-10-06] MEDS: HYDROmorphone 0.5 MG/0.5 ML SYRINGE IVP PRN ×2 (20:41→23:53)
[2020-10-06] MEDS: GABAPENTIN 100 MG CAP PO SCH (20:41)
[2020-10-06] MEDS: metroNIDAZOLE 500 MG TAB PO SCH (20:41)
[2020-10-06] MEDS ORDERED: MELATONIN 5 MG TABLET PO SCH (21:00)
[2020-10-06] MEDS: VANCOMYCIN 125 MG CAPSULE PO SCH (23:52)
[2020-10-07] MEDS: SODIUM CHLORIDE 0.9% 1,000 ML IV SCH ×3 (01:55→22:47)
[2020-10-07 06:56] LABS: Anisocytosis Slight; Basophils # (A) 0.1 k/uL (0-0.2); Basophils % (A) 1 %; Eosinophils # (A) 0.2 k/uL (0-0.7); Eosinophils % (A) 2 %; HCT 35.7 % (34.0-46.0); HGB 11.2 gm/dL (11.4-16.0); Hypochromasia Moderate; Lymphocytes # (A) 1.2 k/uL (1.0-4.8); Lymphocytes % (A) 11 %; MCH 28.5 pg (25.0-35.0); MCHC 31.2 g/dL (31.0-37.0); MCV 91.4 fL (80.0-100.0); Mean Platelet Volume 7.3; Monocytes % (A) 10 %; Neutrophils # (A) 7.4 k/uL (1.3-7.7); Neutrophils % (A) 74 %; Platelet Count 301 k/uL (150-450); RBC 3.91 m/uL (3.80-5.40); RDW 18.8 % (11.5-15.5); WBC 10.1 k/uL (3.8-10.6)
[2020-10-07] MEDS: METOPROLOL TARTRATE 12.5 MG TAB PO SCH ×2 (08:07→20:41)
[2020-10-07] MEDS: metroNIDAZOLE 500 MG TAB PO SCH ×3 (08:07→20:41)
[2020-10-07] MEDS: GABAPENTIN 100 MG CAP PO SCH ×2 (08:07→20:42)
[2020-10-07] MEDS: VANCOMYCIN 125 MG CAPSULE PO SCH ×4 (08:07→20:57)
[2020-10-07] MEDS: HYDROmorphone 0.5 MG/0.5 ML SYRINGE IVP PRN ×3 (08:07→22:40)
[2020-10-07] MEDS ORDERED: ONDANSETRON 4 MG TAB PO PRN (09:07)
[2020-10-07] MEDS ORDERED: PSEUDOEPHEDRINE 12HR 120 MG TABLET.ER PO PRN (09:07)
[2020-10-07] MEDS ORDERED: LIDOCAINE RECTAL PRN (09:07)
[2020-10-07] MEDS ORDERED: traMADol 50 MG TAB PO PRN (09:07)
[2020-10-07] MEDS ORDERED: MAGNESIUM HYDROXIDE 2,400 MG/10 ML CUP PO PRN (09:07)
[2020-10-07] MEDS ORDERED: bisacodyL 10 MG SUPP RECTAL PRN (09:07)
[2020-10-07] MEDS ORDERED: polyethylene glycoL 3350 17 GM POWD.PACK PO PRN (09:07)
[2020-10-07] MEDS ORDERED: HYDROCORTISONE SUPPOSITORY 25 MG SUPP RECTAL PRN (09:07)
--- NOTE | 2020-10-07 09:17 | P.HPIM ---
History of Present Illness H&P Date: 10/07/20 Claribel acosta, is a 75 female who currently is a resident of [facility] for rehabilitation after a prolonged admission to [facility] for Covid 19 pneumonia, patient states that 3 days ago she started having pain in the rectal area with constant liquid stool incontinence she was having external hemorrhoids with severe pain, she was transferred to the [facility], she was evaluated there and had evidence of proctitis computed tomography scan of the abdomen and pelvis was done and revealed evidence of dilated rectum with evidence of inflammation stools for C. diff was positive for C. diff antigen but negative for C. diff toxin. She was transferred to [facility] for further evaluation and treatment. On arrival to [facility] vital examination revealed a temperature of 98.3 pulse 74 respiration 18 blood pressure 120/62 pulse ox 92% on 2 L nasal cannula, white blood count was 10.1 hemoglobin 11.2 platelet count 301 patient w as admitted to medical floor, home medications were resumed, patient was continued on oral vancomycin that was started at [facility] she was also started on IV Solu-Medrol consultation for gastroenterology was initiated. On review of systems patient is alert and oriented 3 in no distress she is complaining mostly of pain in the rectal area otherwise she denies any significant complaints she stated that her breathing has improved significantly since her recent admission with Covid 19 pneumonia she is currently maintained on oxygen at 2 L via nasal cannula there is no fever or chills no headache or dizziness no chest pain no palpitation no cough no nausea or vomiting no abdominal pain she is still complaining of diarrhea no blood in the stools no burning with urination no frequency or urgency and no hematuria. There is no weakness or numbness in any of the extremities there is no change in vision speech or gait. 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 Does NOT want to ever return there. Spouse was admitted to [facility] in [place] with napoleon. Pt last spoke to him 09/09 and currently doesnt know his status or whereabouts. Smoking Status: Never smoker Past Alcohol Use History: None Reported Past Drug Use History: None Reported - Past Family History Mother Family Medical History: Dementia, Hypertension Additional Family Medical History / Comment(s): Lived until 102 Father Family Medical History: COPD Additional Family Medical History / Comment(s): in his late 60's from emphysema Medications and Allergies Home Medications Medication Instructions Recorded Confirmed Type NIFEdipine [Nifedical Xl] 30 mg PO BID 06/28/15 10/06/20 History Acetaminophen [Tylenol Arthritis] 650 mg PO Q8H PRN 08/27/20 10/06/20 History Cholecalciferol [Vitamin D3 (25 1,000 unit PO HS 08/27/20 10/06/20 History Mcg = 1000 Iu)] Mycophenolate Mofetil [Cellcept] 500 mg PO TID@0500,1300,2100 08/27/20 10/06/20 History Pseudoephedrine 12Hr [Sudafed 12 120 mg PO Q12H PRN 08/27/20 10/06/20 History Hour] traMADol HCL 50 mg PO Q6H 08/27/20 10/06/20 History Celecoxib [CeleBREX] 200 mg PO BID 08/29/20 10/06/20 History Melatonin 5 mg PO HS tablet 09/10/20 10/06/20 Rx Metoprolol Tartrate [Lopressor] 12.5 mg PO BID tab 09/10/20 10/06/20 Rx Ascorbic Acid [Vitamin C] 1,000 mg PO HS 09/11/20 10/06/20 History Gabapentin [Neurontin] 200 mg PO BID 09/11/20 10/06/20 History Hydrocortisone Pr Cream 1 applic RECTAL TID@0500,1300,2100 09/11/20 10/06/20 History [Proctosol-Hc 2.5%] Atorvastatin [Lipitor] 20 mg PO HS tab 09/20/20 10/06/20 Rx predniSONE 10 mg PO DAILY 30 Days #60 tab 09/20/20 10/06/20 Rx ALPRAZolam [Xanax] 0.25 mg PO Q8H PRN 10/06/20 10/06/20 History Alendronate Sodium [Fosamax] 70 mg PO WE@0600 10/06/20 10/06/20 History Aspirin 81 mg PO DAILY 10/06/20 10/06/20 History Famotidine [Pepcid] 20 mg PO BID@0900,1700 10/06/20 10/06/20 History Hydrocortisone Suppository 25 mg RECTAL Q12H PRN 10/06/20 10/06/20 History [Anusol-Hc] Lidocaine [Lidocaine 5% Rectal 1 applic RECTAL DAILY PRN 10/06/20 10/06/20 H istory Cream] Magnesium Hydroxide [Milk of 7,200 mg PO DAILY PRN 10/06/20 10/06/20 History Magnesia Concentrate] Meclizine [Antivert] 12.5 mg PO TID@0900,1300,2100 10/06/20 10/06/20 History Nitrofurantoin Monohyd/M-Cryst 100 mg PO BID@0900,1700 10/06/20 10/06/20 History [Macrobid] Ondansetron HCl [Zofran] 4 mg PO Q8H PRN 10/06/20 10/06/20 History Sennosides-Docusate Sodium 1 tab PO DAILY@1300 10/06/20 10/06/20 History [Senokot-S] bisacodyL [Bisacodyl] 10 mg RECTAL DAILY PRN 10/06/20 10/06/20 History polyethylene glycoL 3350 [Miralax] 17 gm PO DAILY PRN 10/06/20 10/06/20 History traMADol HCL 50 mg PO Q6H PRN 10/06/20 10/06/20 History Allergies Allergy/AdvReac Type Severity Reaction Status Date / Time clindamycin HCl Allergy Rash/Hives Verified 10/06/20 20:29 [From Cleocin] clindamycin palmitate HCl Allergy Rash/Hives Verified 10/06/20 20:29 [From Cleocin] clindamycin phosphate Allergy Rash/Hives Verified 10/06/20 20:29 [From Cleocin] latex Allergy Rash/Hives Verified 10/06/20 20:29 Physical Exam Vitals: Vital Signs Temp Pulse Resp BP Pulse Ox 10/07/20 07:52 98.6 F 87 23 134/79 93 L 10/07/20 02:15 98.4 F 78 20 110/52 92 L 10/06/20 20:00 98.3 F 74 18 120/62 92 L Intake and Output 10/06/20 10/07/20 10/07/20 22:59 06:59 14:59 Intake Total 300 Output Total 5920 Balance -5620 Intake: Oral 300 Output: Urine 3940 Straight 1979 Post Void Residual 1979 Other: Voiding Method Diaper # Bowel Movements 1 4 Weight 153.3 kg In general patient is alert, and oriented in no apparent distress HEENT head normocephalic and atraumatic Neck is supple no JVD no goiter no lymphadenopathy Chest exam reveals a few scattered rhonchi no wheezing Cardiac exam reveals regular heart sounds no gallops no murmurs Abdomen is soft nontender no organomegaly with normal bowel sounds Extremity exam reveals no edema no cyanosis or clubbing Neurological examination reveals no gross focal deficits Results CBC & Chem 7: 10/07/20 06:31 Labs: Abnormal Lab Results - Last 24 Hours (Table) 10/07/20 Range/Units 06:31 Hgb 11.2 L (11.4-16.0) gm/dL RDW 18.8 H (11.5-15.5) % Thrombosis Risk Factor Assmnt - Choose All That Apply Each Risk Factor Represents 2 Points: Age 61-74 years Thrombosis Risk Factor Assessment Total Risk Factor Score: 2 Thrombosis Risk Factor Assessment Level: Low Risk Assessment and Plan Plan: 1. Rectal pain, with evidence of proctitis on computed tomography scan done at [facility], at this time we are treating with local steroids and IV steroids, consultation for gastroenterology initiated 2. Possible C. diff colitis, testing at [facility] revealed positive antigen but negative toxin for C. diff, at this time will continue with oral vancomycin and recheck C. diff toxin. 3. Recent prolonged admission for Covid 19 pneumonia, patient is still requiring oxygen supplements. 4. Underlying history of scleroderma 5. Underlying history of pulmonary fibrosis 6. Underlying history of pulmonary hypertension 7. Generalized weakness with physical debility and gait disturbance, patient was admitted to [facility] for rehabilitation. At this time, home medications reviewed and reordered, continue with rectal s teroids and IV steroids Continue with oral vancomycin Consultation for gastroenterology was initiated Will follow closely
[2020-10-07 10:11] LABS: African American GFR (CKD) 128.9 (60.0-200.0); Anion Gap 10.5 mmol/L (4.00-12.00); Calcium 9.1 mg/dL (8.7-10.3); Carbon Dioxide 25.5 mmol/L (21.6-31.8); Non-African American GFR(CKD) 111.2 (60.0-200.0); Potassium 4.2 mmol/L (3.5-5.5)
[2020-10-07] MEDS: SENNOSIDES-DOCUSATE SODIUM 1 EACH TAB PO SCH (12:23)
[2020-10-07] MEDS: MECLIZINE 12.5 MG TAB PO SCH ×2 (12:23→20:54)
[2020-10-07] MEDS: traMADol 50 MG TAB PO SCH ×3 (12:23→20:41)
[2020-10-07] MEDS: HYDROCORTISONE 2.5% RECTAL CREAM 30 GM TUBE RECTAL SCH ×2 (12:24→20:56)
[2020-10-07] MEDS: methylPREDNISolone SOD SUCCI 40 MG/ML 1 ML VIAL IV SCH ×3 (12:24→22:47)
[2020-10-07] MEDS: HYDROCORTISONE SUPPOSITORY 25 MG SUPP RECTAL SCH ×2 (12:24→20:28)
--- NOTE | 2020-10-07 14:18 | XR ---
EXAMINATION TYPE: XR chest 1V portable DATE OF EXAM: 10/07/2020 COMPARISON: 09/11/2020 INDICATION: Covid TECHNIQUE: Single frontal view of the chest is obtained. FINDINGS: The heart size is normal. The pulmonary vasculature is prominent. Diffuse increased peripheral lung markings are present. This greater the lung bases. Findings can be compatible with atypical pneumonia. IMPRESSION: 1. Diffuse peripheral increased lung infiltrates can be compatible with atypical pneumonia.
[2020-10-07] MEDS: FAMOTIDINE 20 MG TAB PO SCH (15:57)
[2020-10-07] MEDS: ATORVASTATIN 20 MG TAB PO SCH (20:40)
[2020-10-07] MEDS: ASCORBIC ACID 500 MG TAB PO SCH (20:41)
[2020-10-07] MEDS: CHOLECALCIFEROL 1,000 UNIT TAB PO SCH (20:41)
[2020-10-07] MEDS: MELATONIN 5 MG TABLET PO SCH (20:42)
[2020-10-07] MEDS: NIFEdipine XL 30 MG TAB.ER.24 PO SCH (20:57)
--- NOTE | 2020-10-07 23:27 | CONS ---
CONSULTATION DATE OF DICTATION: October 07, 2020. REQUESTING PHYSICIAN: Dr. Swenson. REASON FOR CONSULTATION: Abdominal pain, rectal pain. C diff infection. HISTORY OF PRESENT ILLNESS: The patient is a 75-year-old pleasant white female who is a resident of [facility] in [place], who recently had prolonged hospitalization for COVID-19 pneumonia and was discharged to rehab facility while she started complaining of some abdominal pain associated with severe rectal pain for the last 3-4 days duration and hence was admitted to the hospital. At the hospital, she had a CT of the abdomen and pelvis done that showed evidence of dilated rectum with evidence of inflammation of the perirectal area. The patient states that she has been having chronic constipation, but however for the last 3-4 days, she started having loose watery bowel movements. She did have stool studies for C difficile done. The antigen was positive but the toxin was negative. Subsequently she was started on vancomycin and Flagyl and transferred to [facility] for further evaluation. Today she complains of severe rectal pain. She states that she cannot sit down because of the severe intense pain. She also complains of lower abdominal pain. Reports no nausea, vomiting. No fever, chills, or night sweats. PAST MEDICAL HISTORY: Significant for recent COVID-19 pneumonia with prolonged hospitalization, history of systemic scleroderma, Raynaud syndrome, degenerative joint disease. PAST SURGICAL HISTORY: None. MEDICATIONS: Medications at home include nifedipine, Tylenol, vitamin D3, CellCept, Sudafed, metoprolol, melatonin, gabapentin, hydrocortisone cream, Fosamax, Xanax, Pepcid, Anusol suppositories, lidocaine, milk of magnesia p.r.n., Antivert, Macrobid, Zofran, Senokot, Tramadol, MiraLAX. ALLERGIES: TO CLINDAMYCIN AND LATEX. SOCIAL HISTORY: No smoking. No alcohol use. REVIEW OF SYSTEMS: CARDIOPULMONARY: She denies any chest pain or shortness of breath. No dysuria or hematuria. MUSCULOSKELETAL unremarkable. Skin unremarkable. Endocrine unremarkable. PSYCHIATRIC: Unremarkable. NEUROLOGY: Unremarkable. GI as mentioned above. Hematology unremarkable. ENT/VISION: Unremarkable. CONSTITUTIONAL: No recent weight loss. No fever, chills, night sweats. PHYSICAL EXAMINATION: She appears comfortable, in no apparent distress. Vital signs stable. Blood pressure is 133/87, pulse rate 79, temperature 97.7. HEENT examination unremarkable. Conjunctivae pink. Sclerae anicteric. Oral cavity no lesions. Neck no JVD or lymph node enlargement. CHEST was clear to auscultation. HEART: Regular rate and rhythm. ABDOMEN: Soft. Bowel sounds are positive. No organomegaly. EXTREMITIES: No pedal edema. Rectal examination there was a 1 cm thrombosed external hemorrhoid that was very tender. NEUROLOGIC: Alert and oriented x3. No focal deficits. LABS: From today WBC 10.1, hemoglobin 11.2, platelets normal. Basic metabolic panel is within normal limits. BUN 9, creatinine 0.3. Repeat C difficile toxin was negative. IMPRESSION: 1. Severe rectal pain secondary to thrombosed external hemorrhoids. 2. Possible C difficile colitis. Recent stool studies at [facility] showed C difficile toxin that was negative, but antigen positive and she has been on Flagyl and oral vancomycin for 3 days. 3. Fecal impaction with previous diarrhea. CT scan of the abdomen done in the hospital showed a dilated rectum with perirectal inflammation and solid stool which is highly unlikely that patient has fecal impaction with diarrhea. 4. History of gastroesophageal reflux disease. 5. History of hypertension. RECOMMENDATIONS: 1. We will obtain surgical consultation for thrombosed external hemorrhoids. 2. Continue with oral vancomycin. 3. In regard to the fecal impaction, we will give an enema tomorrow morning after she is evaluated by surgery. 4. Continue with a clear liquid diet. 5. The patient never had a colonoscopy in the past and recommended to have this done on outpatient basis once the current symptomatology resolves. We will follow with you closely. Thank you for this consultation. MMODL / IJN: [id number] /
[2020-10-08] MEDS: traMADol 50 MG TAB PO SCH ×4 (03:08→23:27)
[2020-10-08] MEDS: SODIUM CHLORIDE 0.9% 1,000 ML IV SCH ×4 (03:08→19:21)
[2020-10-08] MEDS: HYDROCORTISONE 2.5% RECTAL CREAM 30 GM TUBE RECTAL SCH ×3 (05:16→20:40)
[2020-10-08 07:09] LABS: Anisocytosis Slight; Basophils % (A) 1 %; Eosinophils % (A) 0 %; HCT 34.1 % (34.0-46.0); HGB 10.8 gm/dL (11.4-16.0); Hypochromasia Moderate; Lymphocytes # (A) 0.5 k/uL (1.0-4.8); Lymphocytes % (A) 6 %; MCH 28.6 pg (25.0-35.0); MCHC 31.5 g/dL (31.0-37.0); MCV 90.6 fL (80.0-100.0); Mean Platelet Volume 7.4; Monocytes # (A) 0.3 k/uL (0-1.0); Monocytes % (A) 4 %; Neutrophils # (A) 6.6 k/uL (1.3-7.7); Neutrophils % (A) 89 %; Platelet Count 333 k/uL (150-450); RBC 3.77 m/uL (3.80-5.40); RDW 19.1 % (11.5-15.5); WBC 7.4 k/uL (3.8-10.6)
[2020-10-08] MEDS ORDERED: NA PHOS,M-B/NA PHOS,DI-BA 133 ML ENEMA RECTAL ONE (09:01)
[2020-10-08] MEDS: GABAPENTIN 100 MG CAP PO SCH ×2 (09:27→20:40)
[2020-10-08] MEDS: NIFEdipine XL 30 MG TAB.ER.24 PO SCH ×2 (09:27→20:40)
[2020-10-08] MEDS: metroNIDAZOLE 500 MG TAB PO SCH ×3 (09:27→23:28)
[2020-10-08] MEDS: MECLIZINE 12.5 MG TAB PO SCH ×3 (09:27→20:40)
[2020-10-08] MEDS: FAMOTIDINE 20 MG TAB PO SCH ×2 (09:28→15:17)
[2020-10-08] MEDS: METOPROLOL TARTRATE 12.5 MG TAB PO SCH ×2 (09:28→20:39)
[2020-10-08] MEDS: MELOXICAM 7.5 MG TAB PO SCH (09:28)
[2020-10-08] MEDS: VANCOMYCIN 125 MG CAPSULE PO SCH ×4 (09:28→23:28)
[2020-10-08] MEDS: ASPIRIN 81 MG PO SCH (09:28)
[2020-10-08] MEDS: HYDROCORTISONE SUPPOSITORY 25 MG SUPP RECTAL SCH ×2 (09:29→20:40)
[2020-10-08 10:39] LABS: African American GFR (CKD) 128.9 (60.0-200.0); Albumin 3.6 g/dL (3.80-4.90); Albumin/Globulin Ratio 2.25 (1.60-3.17); Anion Gap 8.5 mmol/L (4.00-12.00); Calcium 8.8 mg/dL (8.7-10.3); Carbon Dioxide 28.5 mmol/L (21.6-31.8); Globulin 1.6 g/dL (1.6-3.3); Non-African American GFR(CKD) 111.2 (60.0-200.0); Total Bilirubin 0.4 mg/dL (0.2-1.2); Total Protein 5.2 g/dL (6.2-8.2)
[2020-10-08] MEDS ORDERED: bisacodyL 10 MG SUPP RECTAL STA (10:48)
--- NOTE | 2020-10-08 11:04 | PN ---
PROGRESS NOTE DATE OF SERVICE: 10/08/2020 Patient is a 75-year-old white female transferred from [facility] with possible C difficile colitis on vancomycin and Flagyl. Yesterday she developed severe rectal pain and was diagnosed with a thrombosed external hemorrhoid. She was seen by Dr. Alatorre and according to the patient, the thrombosed hemorrhoid was excised. She is feeling much better today. She still has some perirectal pain. She continues to have some leakage of stool. Her CAT scan done at [facility] did show dilated rectum with stool impaction and perirectal inflammation. She reports no abdominal pain. No nausea, vomiting. PHYSICAL EXAMINATION: She appears comfortable. No apparent distress. VITAL SIGNS: Stable. Blood pressure is 133/86, pulse rate 74, temperature 97.7. HEENT examination unremarkable. Conjunctivae pink. Sclerae anicteric. Oral cavity no lesions. NECK no JVD. No lymph node enlargement. CHEST was clear to auscultation. HEART: Regular rate and rhythm. ABDOMEN: Soft. Bowel sounds are positive. EXTREMITIES: No pedal edema. Rectal examination revealed slightly inflamed external hemorrhoid that has been excised and there was some leakage of stool in the diaper. LABS: C diff toxin is negative. WBC 7.4, hemoglobin 10.8, and platelets are 333. IMPRESSION: 1. Questionable Clostridium difficile colitis. Patient's C diff toxin was negative but C diff antigen was positive. She has been on oral vancomycin and Flagyl for the last 4 or 5 days. 2. Dilated rectum with fecal impaction and perirectal inflammation. 3. Thrombosed external hemorrhoids, status post excision by Dr. Alatorre. 4. History of hypertension. 5. Chronic history of chronic constipation. RECOMMENDATIONS: 1. Continue with antibiotics. 2. DC Solu-Medrol. 3. Give a Fleets enema today and continue with laxatives to help with the constipation. 4. Stool softeners and laxatives as needed. 5. Advance diet as tolerated. 6. Will follow with you closely. Thank you for this consultation. MMODL / DENILSONN: [id number] /
[2020-10-08] MEDS: SENNOSIDES-DOCUSATE SODIUM 1 EACH TAB PO SCH (11:11)
--- NOTE | 2020-10-08 11:45 | P.OP ---
Date of Procedure: 10/07/20 Preoperative Diagnosis: Thrombosed external hemorrhoid Postoperative Diagnosis: Thrombosed external hemorrhoid Procedure(s) Performed: Incision and drainage of thrombosed external hemorrhoid Anesthesia: VELIA Surgeon: Andrade Alatorre Estimated Blood Loss (ml): 5 Pathology: none sent Condition: stable Disposition: PACU Description of Procedure: The patient's placed on her bed in the lateral position. Her anus was prepped and draped usual fashion. The patient thrombosed femoral. The hemorrhoid was injected with 1% local Xylocaine. Using 11 blade the hemorrhoids in size and the large clot was removed from the hemorrhoid. Patient tolerated procedure well.
--- NOTE | 2020-10-08 11:46 | P.GSCN ---
History of Present Illness Consult date: 10/07/20 Reason for Consult: Thrombosed external hemorrhoid History of present illness: This a 75-year-old female with history of constipation. Patient has complaints he'll pain. She has a thrombosed external hemorrhoid. 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 Does NOT want to ever return there. Spouse was admitted to [facility] in [place] with tajpanda. Pt last spoke to him 09/09 and currently doesnt know his status or whereabouts. Smoking Status: Never smoker Past Alcohol Use History: None Reported Past Drug Use History: None Reported - Past Family History Mother Family Medical History: Dementia, Hypertension Additional Family Medical History / Comment(s): Lived until 102 Father Family Medical History: COPD Additional Family Medical History / Comment(s): in his late 60's from emphysema Medications and Allergies Home Medications Medication Instructions Recorded Confirmed Type NIFEdipine [Nifedical Xl] 30 mg PO BID 06/28/15 10/06/20 History Acetaminophen [Tylenol Arthritis] 650 mg PO Q8H PRN 08/27/20 10/06/20 History Cholecalciferol [Vitamin D3 (25 1,000 unit PO HS 08/27/20 10/06/20 History Mcg = 1000 Iu)] Mycophenolate Mofetil [Cellcept] 500 mg PO TID@0500,1300,2100 08/27/20 10/06/20 History Pseudoephedrine 12Hr [Sudafed 12 120 mg PO Q12H PRN 08/27/20 10/06/20 History Hour] traMADol HCL 50 mg PO Q6H 08/27/20 10/06/20 History Celecoxib [CeleBREX] 200 mg PO BID 08/29/20 10/06/20 History Melatonin 5 mg PO HS tablet 09/10/20 10/06/20 Rx Metoprolol Tartrate [Lopressor] 12.5 mg PO BID tab 09/10/20 10/06/20 Rx Ascorbic Acid [Vitamin C] 1,000 mg PO HS 09/11/20 10/06/20 History Gabapentin [Neurontin] 200 mg PO BID 09/11/20 10/06/20 History Hydrocortisone Pr Cream 1 applic RECTAL TID@0500,1300,2100 09/11/20 10/06/20 History [Proctosol-Hc 2.5%] Atorvastatin [Lipitor] 20 mg PO HS tab 09/20/20 10/06/20 Rx predniSONE 10 mg PO DAILY 30 Days #60 tab 09/20/20 10/06/20 Rx ALPRAZolam [Xanax] 0.25 mg PO Q8H PRN 10/06/20 10/06/20 History Alendronate Sodium [Fosamax] 70 mg PO WE@0600 10/06/20 10/06/20 History Aspirin 81 mg PO DAILY 10/06/20 10/06/20 History Famotidine [Pepcid] 20 mg PO BID@0900,1700 10/06/20 10/06/20 History Hydrocortisone Suppository 25 mg RECTAL Q12H PRN 10/06/20 10/06/20 History [Anusol-Hc] Lidocaine [Lidocaine 5% Rectal 1 applic RECTAL DAILY PRN 10/06/20 10/06/20 History Cream] Magnesium Hydroxide [Milk of 7,200 mg PO DAILY PRN 10/06/20 10/06/20 History Magnesia Concentrate] Meclizine [Antivert] 12.5 mg PO TID@0900,1300,2100 10/06/20 10/06/20 History Nitrofurantoin Monohyd/M-Cryst 100 mg PO BID@0900,1700 10/06/20 10/06/20 History [Macrobid] Ondansetron HCl [Zofran] 4 mg PO Q8H PRN 10/06/20 10/06/20 History Sennosides-Docusate Sodium 1 tab PO DAILY@1300 10/06/20 10/06/20 History [Senokot-S] bisacodyL [Bisacodyl] 10 mg RECTAL DAILY PRN 10/06/20 10/06/20 History polyethylene glycoL 3350 [Miralax] 17 gm PO DAILY PRN 10/06/20 10/06/20 History traMADol HCL 50 mg PO Q6H PRN 10/06/20 10/06/20 History Allergies Allergy/AdvReac Type Severity Reaction Status Date / Time clindamycin HCl Allergy Rash/Hives Verified 10/06/20 20:29 [From Cleocin] clindamycin palmitate HCl Allergy Rash/Hives Verified 10/06/20 20:29 [From Cleocin] clindamycin phosphate Allergy Rash/Hives Verified 10/06/20 20:29 [From Cleocin] latex Allergy Rash/Hives Verified 10/06/20 20:29 Surgical - Exam Vital Signs Temp Pulse Resp BP Pulse Ox 98.3 F 74 18 120/62 92 L 10/06/20 20:00 10/06/20 20:00 10/06/20 20:00 10/06/20 20:00 10/06/20 20:00 - General well developed, well nourished, no distress - Eyes PERRL - ENT normal pinna - Neck no masses - Respiratory normal expansion - Cardiovascular Rhythm: regular - Abdomen Abdomen: soft, non tender - Rectum 3 cm thrombosed external hemorrhoid Results - Labs 10/08/20 06:01 10/08/20 06:01 Abnormal Lab Results - Last 24 Hours (Table) 10/08/20 10/08/20 Range/Units 06:01 06:01 RBC 3.77 L (3.80-5.40) m/uL Hgb 10.8 L (11.4-16.0) gm/dL RDW 19.1 H (11.5-15.5) % Lymphocytes # 0.5 L (1.0-4.8) k/uL Creatinine 0.3 L (0.6-1.5) mg/dL BUN/Creatinine Ratio 30.00 H (12.00-20.00) Ratio Glucose 157 H (70-110) mg/dL AST 10 L (13-35) U/L Total Protein 5.2 L (6.2-8.2) g/dL Albumin 3.60 L (3.80-4.90) g/dL Diabetes panel 10/08/20 Range/Units 06:01 Sodium 141 (135-145) mmol/L Potassium 4.0 (3.5-5.5) mmol/L Chloride 104 (96-109) mmol/L Carbon Dioxide 28.5 (21.6-31.8) mmol/L BUN 9.0 (9.0-27.0) mg/dL Creatinine 0.3 L (0.6-1.5) mg/dL Glucose 157 H (70-110) mg/dL Calcium 8.8 (8.7-10.3) mg/dL AST 10 L (13-35) U/L ALT 17 (8-44) U/L Alkaline Phosphatase 72 (41-126) U/L Total Protein 5.2 L (6.2-8.2) g/dL Albumin 3.60 L (3.80-4.90) g/dL Calcium panel 10/08/20 Range/Units 06:01 Calcium 8.8 (8.7-10.3) mg/dL Albumin 3.60 L (3.80-4.90) g/dL Pituitary panel 10/08/20 Range/Units 06:01 Sodium 141 (135-145) mmol/L Potassium 4.0 (3.5-5.5) mmol/L Chloride 104 (96-109) mmol/L Carbon Dioxide 28.5 (21.6-31.8) mmol/L BUN 9.0 (9.0-27.0) mg/dL Creatinine 0.3 L (0.6-1.5) mg/dL Glucose 157 H (70-110) mg/dL Calcium 8.8 (8.7-10.3) mg/dL Adrenal panel 10/08/20 Range/Units 06:01 Sodium 141 (135-145) mmol/L Potassium 4.0 (3.5-5.5) mmol/L Chloride 104 (96-109) mmol/L Carbon Dioxide 28.5 (21.6-31.8) mmol/L BUN 9.0 (9.0-27.0) mg/dL Creatinine 0.3 L (0.6-1.5) mg/dL Glucose 157 H (70-110) mg/dL Calcium 8.8 (8.7-10.3) mg/dL Total Bilirubin 0.4 (0.2-1.2) mg/dL AST 10 L (13-35) U/L ALT 17 (8-44) U/L Alkaline Phosphatase 72 (41-126) U/L Total Protein 5.2 L (6.2-8.2) g/dL Albumin 3.60 L (3.80-4.90) g/dL Assessment and Plan Assessment: Thrombosed external hemorrhoid. We'll perform incision and drainage.
--- NOTE | 2020-10-08 11:53 | P.PN ---
Subjective Progress Note Date: 10/08/20 Claribel acosta, is a 75 female who currently is a resident of [facility] for rehabilitation after a prolonged admission to [facility] for Covid 19 pneumonia, patient states that 3 days ago she started having pain in the rectal area with constant liquid stool incontinence she was having external hemorrhoids with severe pain, she was transferred to the [facility], she was evaluated there and had evidence of proctitis computed tomography scan of the abdomen and pelvis was done and revealed evidence of dilated rectum with evidence of inflammation stools for C. diff was positive for C. diff antigen but negative for C. diff toxin. She was transferred to [facility] for further evaluation and treatment. On arrival to [facility] vital examination revealed a temperature of 98.3 pulse 74 respiration 18 blood pressure 120/62 pulse ox 92% on 2 L nasal cannula, white blood count was 10.1 hemoglobin 11.2 platelet count 301 patient was admitted to medical floor, home medications were resumed, patient was continued on oral vancomycin that was started at [facility] she was also started on IV Solu-Medrol consultation for gastroenterology was initiated. On review of systems patient is alert and oriented 3 in no distress she is complaining mostly of pain in the rectal area otherwise she denies any significant complaints she stated that her breathing has improved significantly since her recent admission with Covid 19 pneumonia she is currently maintained on oxygen at 2 L via nasal cannula there is no fever or chills no headache or dizziness no chest pain no palpitation no cough no nausea or vomiting no abdominal pain she is still complaining of diarrhea no blood in the stools no burning with urination no frequency or urgency and no hematuria. There is no weakness or numbness in any of the extremities there is no change in vision speech or gait. On 10/08/2020 patient was seen and examined on the medical floor she is alert and oriented 3 in no apparent distress, she is complaining of severe pain in the rectal area there is no fever or chills no headache or dizziness no chest pain no shortness of breath no cough no nausea or vomiting no abdominal pain no diarrhea no burning with urination no frequency or urgency and no hematuria Objective - Vital Signs Vital signs: Vital Signs Temp 97.7 F 10/08/20 08:19 Pulse 74 10/08/20 08:19 Resp 21 10/08/20 08:19 BP 133/81 10/08/20 08:19 Pulse Ox 94 L 10/08/20 08:19 Intake & Output 10/07/20 10/08/20 10/08/20 18:59 06:59 18:59 Intake Total 550 Output Total 619 Balance -69 Intake: Oral 550 Output: Post Void Residual 619 Other: Voiding Method Diaper # Voids 4 3 # Bowel Movements 1 4 - Exam In general patient is alert, and oriented in no apparent distress HEENT head normocephalic and atraumatic Neck is supple no JVD no goiter no lymphadenopathy Chest exam reveals a few scattered rhonchi no wheezing Cardiac exam reveals regular heart sounds no gallops no murmurs Abdomen is soft nontender no organomegaly with normal bowel sounds Extremity exam reveals no edema no cyanosis or clubbing Neurological examination reveals no gross focal deficits - Labs CBC & Chem 7: 10/08/20 06:01 10/08/20 06:01 Labs: Abnormal Lab Results - Last 24 Hours (Table) 10/08/20 10/08/20 Range/Units 06:01 06:01 RBC 3.77 L (3.80-5.40) m/uL Hgb 10.8 L (11.4-16.0) gm/dL RDW 19.1 H (11.5-15.5) % Lymphocytes # 0.5 L (1.0-4.8) k/uL Creatinine 0.3 L (0.6-1.5) mg/dL BUN/Creatinine Ratio 30.00 H (12.00-20.00) Ratio Glucose 157 H (70-110) mg/dL AST 10 L (13-35) U/L Total Protein 5.2 L (6.2-8.2) g/dL Albumin 3.60 L (3.80-4.90) g/dL Assessment and Plan Plan: 1. Rectal pain, with evidence of proctitis on computed tomography scan done at [facility], at this time we are treating with local steroids and IV steroids, consultation for gastroenterology initiated 2. Possible C. diff colitis, testing at [facility] revealed positive antigen but negative toxin for C. diff, at this time will continue with oral vancomycin and recheck C. diff toxin. 3. Recent prolonged admission for Covid 19 pneumonia, patient is still requiring oxygen supplements. 4. Underlying history of scleroderma 5. Underlying history of pulmonary fibrosis 6. Underlying history of pulmonary hypertension 7. Generalized weakness with physical debility and gait disturbance, patient was admitted to [facility] for rehabilitation. At this time, home medications reviewed and reordered, continue with rectal steroids and IV steroids Continue with oral vancomycin Consultation for gastroenterology was initiated Will follow closely
[2020-10-08 11:56] VITALS: BMI 48.4
[2020-10-08] MEDS: ACETAMINOPHEN TAB 325 MG TAB PO PRN (19:11)
[2020-10-08] MEDS: ASCORBIC ACID 500 MG TAB PO SCH (20:38)
[2020-10-08] MEDS: MELATONIN 5 MG TABLET PO SCH (20:39)
[2020-10-08] MEDS: ATORVASTATIN 20 MG TAB PO SCH (20:39)
[2020-10-08] MEDS: CHOLECALCIFEROL 1,000 UNIT TAB PO SCH (20:40)
[2020-10-09] MEDS: HYDROCORTISONE 2.5% RECTAL CREAM 30 GM TUBE RECTAL SCH ×3 (04:15→21:12)
[2020-10-09] MEDS: traMADol 50 MG TAB PO SCH ×4 (04:16→23:49)
[2020-10-09] MEDS: metroNIDAZOLE 500 MG TAB PO SCH ×3 (08:55→21:24)
[2020-10-09] MEDS: MELOXICAM 7.5 MG TAB PO SCH (08:55)
[2020-10-09] MEDS: GABAPENTIN 100 MG CAP PO SCH ×2 (08:55→21:23)
[2020-10-09] MEDS: ASPIRIN 81 MG PO SCH (08:55)
[2020-10-09] MEDS: HYDROCORTISONE SUPPOSITORY 25 MG SUPP RECTAL SCH ×2 (08:55→21:12)
[2020-10-09] MEDS: MECLIZINE 12.5 MG TAB PO SCH ×3 (08:55→21:23)
[2020-10-09] MEDS: METOPROLOL TARTRATE 12.5 MG TAB PO SCH ×2 (08:55→21:24)
[2020-10-09] MEDS: ALPRAZolam 0.25 MG TAB PO PRN (08:56)
[2020-10-09] MEDS: NIFEdipine XL 30 MG TAB.ER.24 PO SCH ×2 (08:56→21:25)
[2020-10-09] MEDS: ACETAMINOPHEN TAB 325 MG TAB PO PRN (08:56)
[2020-10-09] MEDS: FAMOTIDINE 20 MG TAB PO SCH ×2 (08:56→15:39)
[2020-10-09] MEDS: SODIUM CHLORIDE 0.9% 1,000 ML IV SCH ×2 (08:57→17:16)
[2020-10-09] MEDS: VANCOMYCIN 125 MG CAPSULE PO SCH ×4 (08:58→21:23)
[2020-10-09] MEDS: MORPHINE SULFATE 4 MG/ML SYRINGE IVP PRN ×3 (10:42→21:08)
--- NOTE | 2020-10-09 10:57 | P.PN ---
Subjective Progress Note Date: 10/09/20 Claribel acosta, is a 75 female who currently is a resident of [facility] for rehabilitation after a prolonged admission to [facility] for Covid 19 pneumonia, patient states that 3 days ago she started having pain in the rectal area with constant liquid stool incontinence she was having external hemorrhoids with severe pain, she was transferred to the [facility], she was evaluated there and had evidence of proctitis computed tomography scan of the abdomen and pelvis was done and revealed evidence of dilated rectum with evidence of inflammation stools for C. diff was positive for C. diff antigen but negative for C. diff toxin. She was transferred to [facility] for further evaluation and treatment. On arrival to [facility] vital examination revealed a temperature of 98.3 pulse 74 respiration 18 blood pressure 120/62 pulse ox 92% on 2 L nasal cannula, white blood count was 10.1 hemoglobin 11.2 platelet count 301 patient was admitted to medical floor, home medications were resumed, patient was continued on oral vancomycin that was started at [facility] she was also started on IV Solu-Medrol consultation for gastroenterology was initiated. On review of systems patient is alert and oriented 3 in no distress she is complaining mostly of pain in the rectal area otherwise she denies any significant complaints she stated that her breathing has improved significantly since her recent admission with Covid 19 pneumonia she is currently maintained on oxygen at 2 L via nasal cannula there is no fever or chills no headache or dizziness no chest pain no palpitation no cough no nausea or vomiting no abdominal pain she is still complaining of diarrhea no blood in the stools no burning with urination no frequency or urgency and no hematuria. There is no weakness or numbness in any of the extremities there is no change in vision speech or gait. On 10/08/2020 patient was seen and examined on the medical floor she is alert and oriented 3 in no apparent distress, she is complaining of severe pain in the rectal area there is no fever or chills no headache or dizziness no chest pain no shortness of breath no cough no nausea or vomiting no abdominal pain no diarrhea no burning with urination no frequency or urgency and no hematuria On 10/09/2020 patient is alert and oriented 3. Patient still having signif icant pain to rectal area. Patient denies chest pain or shortness of breath. Patient denies nausea vomiting or diarrhea. Patient denies any urinary burning or frequency. Status post incision and drainage of thrombosed external hemorrhoid per Dr. Alatorre. Patient remains on Flagyl and oral vancomycin. Objective - Vital Signs Vital signs: Vital Signs Temp 98.6 F 10/09/20 08:00 Pulse 65 10/09/20 08:00 Resp 20 10/09/20 08:00 BP 146/64 10/09/20 08:00 Pulse Ox 96 10/09/20 08:00 Intake & Output 10/08/20 10/09/20 10/09/20 18:59 06:59 18:59 Intake Total 480 200 Output Total 3600 Balance 480 -3400 Weight 153.3 kg Intake: IV 480 Sodium Chloride 0.9% 1, 480 000 ml @ 130 mls/hr IV . Q7H42M [facility] Rx#:[id number] Oral 200 Output: Urine 2400 Straight 1200 Post Void Residual 1200 Other: Voiding Method Diaper # Voids 1 - Exam In general patient is alert, and oriented in no apparent distress HEENT head normocephalic and atraumatic Neck is supple no JVD no goiter no lymphadenopathy Chest exam reveals a few scattered rhonchi no wheezing Cardiac exam reveals regular heart sounds no gallops no murmurs Abdomen is soft nontender no organomegaly with normal bowel sounds Extremity exam reveals no edema no cyanosis or clubbing Neurological examination reveals no gross focal deficits - Labs CBC & Chem 7: 10/08/20 06:01 10/08/20 06:01 Assessment and Plan Plan: 1. Rectal pain, with evidence of proctitis on computed tomography scan done at [facility]. Status post incision and drainage of thrombosed external hemorrhoid on 10/07/2020 2. Possible C. diff colitis, testing at [facility] revealed positive antigen but negative toxin for C. diff, at this time will continue with oral vancomycin and recheck C. diff toxin. 3. Recent prolonged admission for Covid 19 pneumonia, patient is still requiring oxygen supplements. 4. Underlying history of scleroderma 5. Underlying history of pulmonary fibrosis 6. Underlying history of pulmonary hypertension 7. Generalized weakness with physical debility and gait disturbance, patient was admitted to [facility] for rehabilitation. At this time, home medications reviewed and reordered, continue with rectal steroids and IV steroids GI and surgical services following She remains on Flagyl and oral vancomycin
--- NOTE | 2020-10-09 11:03 | P.PN ---
Progress Note - Text Progress Note Date: 10/09/20 The patient has complaints of perianal pain. On exam vital signs are stable. Abdomen is soft. There is no rebound tenderness. Status post incision and drainage of thrombosed hemorrhoid. Patient will be receiving some morphine today for pain.
[2020-10-09] MEDS: SENNOSIDES-DOCUSATE SODIUM 1 EACH TAB PO SCH (11:05)
--- NOTE | 2020-10-09 12:22 | PN ---
PROGRESS NOTE DATE OF DICTATION: October 09, 2020 The patient is a 75-year-old white female admitted to the hospital with severe rectal pain and constipation and C difficile colitis. Presently remains on antibiotics. She still continues to complain of rectal pain. She underwent incision and drainage of the thrombosed external hemorrhoid by Dr. Alatorre 2 days ago. As per the nursing staff, and multiple bowel movements yesterday after taking magnesium citrate. She still continues to complain of lower abdominal pain. Remains on antibiotics for C difficile colitis. PHYSICAL EXAMINATION: Appears comfortable. VITAL SIGNS: Stable. Blood pressure is 147/61, pulse rate 56. Temperature 98.4. HEENT examination unremarkable. Conjunctivae pink. Sclerae anicteric. Oral cavity no lesions. Neck: No JVD or lymph node enlargement. CHEST was clear to auscultation. HEART: Regular rate and rhythm. ABDOMEN: Soft. There was mild tenderness in the suprapubic area but rest of the abdomen was benign. EXTREMITIES: No pedal edema. NEURO: She is alert and oriented x3. No focal deficits. LABS: From today WBC 7.4, hemoglobin 10.8, platelets normal. Rest of the labs are within normal limits. IMPRESSION: 1. C difficile colitis on antibiotics with Flagyl and vancomycin. 2. Chronic constipation with previous diarrhea. Presently on oral laxatives with Colace, senna, and magnesium citrate as needed. 3. Thrombosed external hemorrhoids, status post I and D by Dr. Alatorre 2 days ago. 4. History of hypertension, hypercholesteremia. RECOMMENDATIONS: 1. Continue with antibiotics for possible C difficile colitis. 2. Continue with stool softeners and osmotic laxatives as needed for the constipation. 3. Advance diet as tolerated. 4. No plans on any endoscopic intervention at the present time. 5. We will follow with you closely. Thank you for this consultation. MMODL / IJN: [id number] /
[2020-10-09] MEDS: MELATONIN 5 MG TABLET PO SCH (21:23)
[2020-10-09] MEDS: ATORVASTATIN 20 MG TAB PO SCH (21:24)
[2020-10-09] MEDS: CHOLECALCIFEROL 1,000 UNIT TAB PO SCH (21:24)
[2020-10-09] MEDS: ASCORBIC ACID 500 MG TAB PO SCH (21:24)
[2020-10-10] MEDS: MORPHINE SULFATE 4 MG/ML SYRINGE IVP PRN ×5 (00:57→22:21)
[2020-10-10] MEDS: SODIUM CHLORIDE 0.9% 1,000 ML IV SCH ×3 (01:02→17:37)
[2020-10-10] MEDS: HYDROCORTISONE 2.5% RECTAL CREAM 30 GM TUBE RECTAL SCH ×3 (04:27→21:04)
[2020-10-10] MEDS: traMADol 50 MG TAB PO SCH ×3 (05:12→18:57)
[2020-10-10 06:23] LABS: Anisocytosis Slight; Basophils # (A) 0.1 k/uL (0-0.2); Basophils % (A) 1 %; Eosinophils # (A) 0.2 k/uL (0-0.7); Eosinophils % (A) 2 %; HCT 33.3 % (34.0-46.0); HGB 10.6 gm/dL (11.4-16.0); Hypochromasia Moderate; Lymphocytes # (A) 1.9 k/uL (1.0-4.8); Lymphocytes % (A) 18 %; MCH 29.2 pg (25.0-35.0); MCHC 31.8 g/dL (31.0-37.0); Mean Platelet Volume 7.9; Monocytes # (A) 1.1 k/uL (0-1.0); Monocytes % (A) 11 %; Neutrophils # (A) 6.8 k/uL (1.3-7.7); Neutrophils % (A) 67 %; Platelet Count 327 k/uL (150-450); RBC 3.62 m/uL (3.80-5.40); RDW 19.3 % (11.5-15.5); WBC 10.2 k/uL (3.8-10.6)
[2020-10-10] MEDS: VANCOMYCIN 125 MG CAPSULE PO SCH ×4 (08:48→21:02)
[2020-10-10] MEDS: METOPROLOL TARTRATE 12.5 MG TAB PO SCH ×2 (08:48→21:03)
[2020-10-10] MEDS: MECLIZINE 12.5 MG TAB PO SCH ×3 (08:48→21:04)
[2020-10-10] MEDS: MELOXICAM 7.5 MG TAB PO SCH (08:49)
[2020-10-10] MEDS: metroNIDAZOLE 500 MG TAB PO SCH ×3 (08:49→21:03)
[2020-10-10] MEDS: NIFEdipine XL 30 MG TAB.ER.24 PO SCH ×2 (08:49→21:03)
[2020-10-10] MEDS: ASPIRIN 81 MG PO SCH (08:49)
[2020-10-10] MEDS: HYDROCORTISONE SUPPOSITORY 25 MG SUPP RECTAL SCH ×2 (08:49→21:04)
[2020-10-10] MEDS: GABAPENTIN 100 MG CAP PO SCH ×2 (08:49→21:03)
[2020-10-10] MEDS: FAMOTIDINE 20 MG TAB PO SCH ×2 (08:49→17:37)
[2020-10-10 09:24] LABS: African American GFR (CKD) 128.9 (60.0-200.0); Albumin 3.2 g/dL (3.80-4.90); Albumin/Globulin Ratio 2.13 (1.60-3.17); Anion Gap 5.2 mmol/L (4.00-12.00); Calcium 8.2 mg/dL (8.7-10.3); Carbon Dioxide 30.8 mmol/L (21.6-31.8); Globulin 1.5 g/dL (1.6-3.3); Non-African American GFR(CKD) 111.2 (60.0-200.0); Potassium 4.1 mmol/L (3.5-5.5); Total Bilirubin 0.3 mg/dL (0.2-1.2); Total Protein 4.7 g/dL (6.2-8.2)
--- NOTE | 2020-10-10 12:42 | P.PN ---
Subjective Progress Note Date: 10/10/20 Principal diagnosis: Rectal pain, constipation Patient was seen and examined lying in bed. She underwent a hemorrhoidectomy on Saturday she states she has had relief, however pain returned and now is throbbing. She states she has had multiple bowel movements yesterday after taki ng magnesium citrate. Denies abdominal pain, nausea or vomiting. Cdiff collected and negative but had a previous positive antigen from [facility] and presently remains on antibiotics. Objective - Vital Signs Vital signs: Vital Signs Temp 97.4 F L 10/10/20 07:28 Pulse 67 10/10/20 07:28 Resp 18 10/10/20 07:28 BP 124/64 10/10/20 07:28 Pulse Ox 100 10/10/20 07:28 Intake & Output 10/09/20 10/10/20 10/10/20 18:59 06:59 18:59 Intake Total 1040 100 Output Total 2600 1000 Balance -1560 -900 Intake: IV 1040 Sodium Chloride 0.9% 1, 1040 000 ml @ 130 mls/hr IV . Q7H42M [facility] Rx#:[id number] Oral 100 Output: Urine 2600 1000 Straight 500 Other: Voiding Method Diaper Indwelling Catheter # Bowel Movements 1 - Exam General appearance: The patient is alert, oriented, in no acute distress. HET: Head is normocephalic and atraumatic. Conjunctiva pink. Sclera anicteric. Neck: Supple without lymphadenopathy. Abdomen: Soft, nontender, nondistended with bowel sounds. No guarding or rigidity. Extremities: Normal skin color and turgor. No pedal edema Neurological: No focal deficits. Alert and oriented 3. - Labs CBC & Chem 7: 10/10/20 06:09 10/10/20 06:09 Labs: Abnormal Lab Results - Last 24 Hours (Table) 10/10/20 10/10/20 Range/Units 06:09 06:09 RBC 3.62 L (3.80-5.40) m/uL Hgb 10.6 L (11.4-16.0) gm/dL Hct 33.3 L (34.0-46.0) % RDW 19.3 H (11.5-15.5) % Monocytes # 1.1 H (0-1.0) k/uL Creatinine 0.3 L (0.6-1.5) mg/dL BUN/Creatinine Ratio 30.00 H (12.00-20.00) Ratio Calcium 8.2 L (8.7-10.3) mg/dL AST 12 L (13-35) U/L Total Protein 4.7 L (6.2-8.2) g/dL Albumin 3.20 L (3.80-4.90) g/dL Globulin 1.5 L (1.6-3.3) g/dL Assessment and Plan (1) Colitis Narrative/Plan: Is is a 75-year-old lady who was transferred from [facility] for acute rectal pain, constipation and questionable proctitis on CT scan. Possible C. difficile colitis. Recent stool studies at [facility] showed C. difficile toxin that was negative but antigen positive and she's been on Flagyl and oral vancomycin. Current Visit: Yes Status: Acute Code(s): K52.9 - NONINFECTIVE GASTROENTERITIS AND COLITIS, UNSPECIFIED SNOMED Code(s): 01570448 (2) Constipation Narrative/Plan: Fecal impaction with previous diarrhea. Computed tomography scan of the abdomen done in [facility] showed a dilated rectum and fecal impaction. Patient has had relief with use of oral laxatives including Colace, Senokot and magnesium citrate. Current Visit: Yes Status: Acute Code(s): K59.00 - CONSTIPATION, UNSPECIFIED SNOMED Code(s): 94086103 (3) External hemorrhoid, thrombosed Narrative/Plan: Severe rectal pain secondary to thrombosed external hemorrhoids. Patient is status post hemorrhoidectomy per Dr. Alatorre. Current Visit: Yes Status: Acute Code(s): K64.5 - PERIANAL VENOUS THROMBOSIS SNOMED Code(s): 26352897 Plan: 1. Supportive care 2. Continue with stool softeners and osmotic laxatives as needed for constip ation 3. Continue with antibiotics for possible C. difficile colitis 4. Diet as tolerated 5. No plans on any endoscopic intervention at the present time 6. Thank you for this consultation we will sign off at this time. Dr. Gamble I agree with the dictator's note, documented as a scribe by Rose Marie Moreno.
--- NOTE | 2020-10-10 12:58 | P.PN ---
Subjective Progress Note Date: 10/10/20 CHIEF COMPLAINT: Thrombosed hemorrhoid HISTORY OF PRESENT ILLNESS: Patient is status post incision and drainage of thrombosed external hemorrhoid. Patient still complaining of rectal pain. She is having diarrhea. Stools are less frequent. C. diff was negative. Denies any nausea or vomiting. She is on regular diet. Afebrile. WBC 10.2 Hgb 10.6 PHYSICAL EXAM: VITAL SIGNS: Reviewed. GENERAL: Well-developed in no acute distress. HEENT: No sclera icterus. Extraocular movements grossly intact. Moist buccal mucosa. Head is atraumatic, normocephalic. ABDOMEN: Soft. Nondistended. Nontender. Right buttocks stage II ulcer. NEUROLOGIC: Alert and oriented. Cranial nerves II through XII grossly intact. ASSESSMENT: 1. Thrombosed external hemorrhoid is status post incision and drainage on PLAN: -Continue supportive care -Continue regular diet -Encouraged patient to increase activity Physician Human Resources Professional note has been reviewed by physician. Signing provider agrees with the documented findings, assessment, and plan of care. Objective - Vital Signs Vital signs: Vital Signs Temp 97.4 F L 10/10/20 07:28 Pulse 67 10/10/20 07:28 Resp 18 10/10/20 07:28 BP 124/64 10/10/20 07:28 Pulse Ox 100 10/10/20 07:28 Intake & Output 10/09/20 10/10/20 10/10/20 18:59 06:59 18:59 Intake Total 1040 100 Output Total 2600 1000 Balance -1560 -900 Intake: IV 1040 Sodium Chloride 0.9% 1, 1040 000 ml @ 130 mls/hr IV . Q7H42M [facility] Rx#:[id number] Oral 100 Output: Urine 2600 1000 Straight 500 Other: Voiding Method Diaper Indwelling Catheter # Bowel Movements 1 - Labs CBC & Chem 7: 10/10/20 06:09 10/10/20 06:09 Labs: Abnormal Lab Results - Last 24 Hours (Table) 10/10/20 10/10/20 Range/Units 06:09 06:09 RBC 3.62 L (3.80-5.40) m/uL Hgb 10.6 L (11.4-16.0) gm/dL Hct 33.3 L (34.0-46.0) % RDW 19.3 H (11.5-15.5) % Monocytes # 1.1 H (0-1.0) k/uL Creatinine 0.3 L (0.6-1.5) mg/dL BUN/Creatinine Ratio 30.00 H (12.00-20.00) Ratio Calcium 8.2 L (8.7-10.3) mg/dL AST 12 L (13-35) U/L Total Protein 4.7 L (6.2-8.2) g/dL Albumin 3.20 L (3.80-4.90) g/dL Globulin 1.5 L (1.6-3.3) g/dL
[2020-10-10] MEDS: SENNOSIDES-DOCUSATE SODIUM 1 EACH TAB PO SCH (14:47)
--- NOTE | 2020-10-10 18:31 | P.PN ---
Subjective Progress Note Date: 10/10/20 Claribel acosta, is a 75 female who currently is a resident of [facility] for rehabilitation after a prolonged admission to [facility] for Covid 19 pneumonia, patient states that 3 days ago she started having pain in the rectal area with constant liquid stool incontinence she was having external hemorrhoids with severe pain, she was transferred to the [facility], she was evaluated there and had evidence of proctitis computed tomography scan of the abdomen and pelvis was done and revealed evidence of dilated rectum with evidence of inflammation stools for C. diff was positive for C. diff antigen but negative for C. diff toxin. She was transferred to [facility] for further evaluation and treatment. On arrival to [facility] vital examination revealed a temperature of 98.3 pulse 74 respiration 18 blood pressure 120/62 pulse ox 92% on 2 L nasal cannula, white blood count was 10.1 hemoglobin 11.2 platelet count 301 patient was admitted to medical floor, home medications were resumed, patient was continued on oral vancomycin that was started at [facility] she was also started on IV Solu-Medrol consultation for gastroenterology was initiated. On review of systems patient is alert and oriented 3 in no distress she is complaining mostly of pain in the rectal area otherwise she denies any significant complaints she stated that her breathing has improved significantly since her recent admission with Covid 19 pneumonia she is currently maintained on oxygen at 2 L via nasal cannula there is no fever or chills no headache or dizziness no chest pain no palpitation no cough no nausea or vomiting no abdominal pain she is still complaining of diarrhea no blood in the stools no burning with urination no frequency or urgency and no hematuria. There is no weakness or numbness in any of the extremities there is no change in vision speech or gait. On 10/08/2020 patient was seen and examined on the medical floor she is alert and oriented 3 in no apparent distress, she is complaining of severe pain in the rectal area there is no fever or chills no headache or dizziness no chest pain no shortness of breath no cough no nausea or vomiting no abdominal pain no diarrhea no burning with urination no frequency or urgency and no hematuria On 10/09/2020 patient is alert and oriented 3. Patient still having signif icant pain to rectal area. Patient denies chest pain or shortness of breath. Patient denies nausea vomiting or diarrhea. Patient denies any urinary burning or frequency. Status post incision and drainage of thrombosed external hemorrhoid per Dr. Alatorre. Patient remains on Flagyl and oral vancomycin. On 10/10/2020 patient was seen and examined on the medical floor she is alert and oriented in no apparent distress she is still complaining of pain in the rectal area otherwise she denies any complaints there is no fever or chills no headache or dizziness no chest pain no shortness of breath no cough no nausea or vomiting no abdominal pain no diarrhea and no urinary symptoms Objective - Vital Signs Vital signs: Vital Signs Temp 98.5 F 10/10/20 14:00 Pulse 69 10/10/20 14:00 Resp 18 10/10/20 14:00 BP 117/65 10/10/20 14:00 Pulse Ox 98 10/10/20 14:00 Intake & Output 10/09/20 10/10/20 10/10/20 18:59 06:59 18:59 Intake Total 1040 100 Output Total 2600 1000 400 Balance -1560 -900 -400 Intake: IV 1040 Sodium Chloride 0.9% 1, 1040 000 ml @ 130 mls/hr IV . Q7H42M [facility] Rx#:[id number] Oral 100 Output: Urine 2600 1000 400 Straight 500 Other: Voiding Method Diaper Indwelling Catheter # Bowel Movements 1 - Exam In general patient is alert, and oriented in no apparent distress HEENT head normocephalic and atraumatic Neck is supple no JVD no goiter no lymphadenopathy Chest exam reveals a few scattered rhonchi no wheezing Cardiac exam reveals regular heart sounds no gallops no murmurs Abdomen is soft nontender no organomegaly with normal bowel sounds Extremity exam reveals no edema no cyanosis or clubbing Neurological examination reveals no gross focal deficits - Labs CBC & Chem 7: 10/10/20 06:09 10/10/20 06:09 Labs: Abnormal Lab Results - Last 24 Hours (Table) 10/10/20 10/10/20 Range/Units 06:09 06:09 RBC 3.62 L (3.80-5.40) m/uL Hgb 10.6 L (11.4-16.0) gm/dL Hct 33.3 L (34.0-46.0) % RDW 19.3 H (11.5-15.5) % Monocytes # 1.1 H (0-1.0) k/uL Creatinine 0.3 L (0.6-1.5) mg/dL BUN/Creatinine Ratio 30.00 H (12.00-20.00) Ratio Calcium 8.2 L (8.7-10.3) mg/dL AST 12 L (13-35) U/L Total Protein 4.7 L (6.2-8.2) g/dL Albumin 3.20 L (3.80-4.90) g/dL Globulin 1.5 L (1.6-3.3) g/dL Assessment and Plan Plan: 1. Rectal pain, with evidence of proctitis on computed tomography scan done at [facility]. Status post incision and drainage of thrombosed external hemorrhoid on 10/07/2020 2. Possible C. diff colitis, testing at [facility] revealed positive antigen but negative toxin for C. diff, at this time will continue with oral vancomycin and recheck C. diff toxin. 3. Recent prolonged admission for Covid 19 pneumonia, patient is still requiring oxygen supplements. 4. Underlying history of scleroderma 5. Underlying history of pulmonary fibrosis 6. Underlying history of pulmonary hypertension 7. Generalized weakness with physical debility and gait disturbance, patient was admitted to [facility] for rehabilitation. At this time, home medications reviewed and reordered, continue with rectal steroids and IV steroids GI and surgical services following She remains on Flagyl and oral vancomycin
[2020-10-10] MEDS: ALPRAZolam 0.25 MG TAB PO PRN (21:03)
[2020-10-10] MEDS: ASCORBIC ACID 500 MG TAB PO SCH (21:04)
[2020-10-10] MEDS: ATORVASTATIN 20 MG TAB PO SCH (21:04)
[2020-10-10] MEDS: CHOLECALCIFEROL 1,000 UNIT TAB PO SCH (21:04)
[2020-10-10] MEDS: MELATONIN 5 MG TABLET PO SCH (21:04)
[2020-10-11] MEDS: traMADol 50 MG TAB PO SCH ×5 (01:59→23:50)
[2020-10-11] MEDS: SODIUM CHLORIDE 0.9% 1,000 ML IV SCH ×4 (02:00→23:52)
[2020-10-11] MEDS: HYDROCORTISONE 2.5% RECTAL CREAM 30 GM TUBE RECTAL SCH ×3 (04:38→20:26)
[2020-10-11 07:22] LABS: Anisocytosis Slight; Basophils # (A) 0.1 k/uL (0-0.2); Basophils % (A) 1 %; Eosinophils # (A) 0.2 k/uL (0-0.7); Eosinophils % (A) 2 %; HGB 10.3 gm/dL (11.4-16.0); Hypochromasia Moderate; Lymphocytes # (A) 1.5 k/uL (1.0-4.8); Lymphocytes % (A) 16 %; MCH 27.9 pg (25.0-35.0); MCHC 30.2 g/dL (31.0-37.0); MCV 92.6 fL (80.0-100.0); Mean Platelet Volume 7.5; Monocytes # (A) 0.8 k/uL (0-1.0); Monocytes % (A) 8 %; Neutrophils % (A) 72 %; Platelet Count 369 k/uL (150-450); RBC 3.68 m/uL (3.80-5.40); RDW 19.5 % (11.5-15.5); WBC 9.7 k/uL (3.8-10.6)
[2020-10-11] MEDS: METOPROLOL TARTRATE 12.5 MG TAB PO SCH ×2 (09:06→20:25)
[2020-10-11] MEDS: MECLIZINE 12.5 MG TAB PO SCH ×3 (09:07→20:26)
[2020-10-11] MEDS: ASPIRIN 81 MG PO SCH (09:07)
[2020-10-11] MEDS: metroNIDAZOLE 500 MG TAB PO SCH ×3 (09:07→20:26)
[2020-10-11] MEDS: GABAPENTIN 100 MG CAP PO SCH ×2 (09:07→20:25)
[2020-10-11] MEDS: VANCOMYCIN 125 MG CAPSULE PO SCH ×4 (09:07→20:25)
[2020-10-11] MEDS: NIFEdipine XL 30 MG TAB.ER.24 PO SCH ×2 (09:07→20:26)
[2020-10-11] MEDS: HYDROCORTISONE SUPPOSITORY 25 MG SUPP RECTAL SCH ×2 (09:07→20:26)
[2020-10-11] MEDS: FAMOTIDINE 20 MG TAB PO SCH ×2 (09:07→16:20)
[2020-10-11] MEDS: MELOXICAM 7.5 MG TAB PO SCH (09:11)
[2020-10-11 10:24] LABS: African American GFR (CKD) 128.9 (60.0-200.0); Albumin 3.2 g/dL (3.80-4.90); Albumin/Globulin Ratio 2.29 (1.60-3.17); Anion Gap 2.3 mmol/L (4.00-12.00); BUN/Creat Ratio 26.67 Ratio (12.00-20.00); Calcium 8.3 mg/dL (8.7-10.3); Carbon Dioxide 30.7 mmol/L (21.6-31.8); Globulin 1.4 g/dL (1.6-3.3); Non-African American GFR(CKD) 111.2 (60.0-200.0); Potassium 3.6 mmol/L (3.5-5.5); Total Bilirubin 0.4 mg/dL (0.3-1.2); Total Protein 4.6 g/dL (6.2-8.2)
[2020-10-11] MEDS: SENNOSIDES-DOCUSATE SODIUM 1 EACH TAB PO SCH (12:34)
--- NOTE | 2020-10-11 13:51 | P.PN ---
Subjective Progress Note Date: 10/11/20 CHIEF COMPLAINT: Thrombosed hemorrhoid HISTORY OF PRESENT ILLNESS: Patient seen and examined with Dr. Alatorre. Patient is status post incision and drainage of thrombosed external hemorrhoid. Patient still complaining of rectal pain. She is having diarrhea. Stools are less frequent. Denies any nausea or vomiting. She is on regular diet. Afebrile. WBC 9.7 Hgb 10.3 PHYSICAL EXAM: VITAL SIGNS: Reviewed. GENERAL: Well-developed in no acute distress. HEENT: No sclera icterus. Extraocular movements grossly intact. Moist buccal mucosa. Head is atraumatic, normocephalic. ABDOMEN: Soft. Nondistended. Nontender. Right buttocks stage II ulcer. NEUROLOGIC: Alert and oriented. Cranial nerves II through XII grossly intact. ASSESSMENT: 1. Thrombosed external hemorrhoid is status post incision and drainage on 10/08/2020 PLAN: -Continue supportive care -Continue regular diet Physician Freight Associate note has been reviewed by physician. Signing provider agrees with the documented findings, assessment, and plan of care. Objective - Vital Signs Vital signs: Vital Signs Temp 98 F 10/11/20 07:38 Pulse 97 10/11/20 07:38 Resp 20 10/11/20 07:38 BP 143/70 10/11/20 07:38 Pulse Ox 92 L 10/11/20 07:38 Intake & Output 10/10/20 10/11/20 10/11/20 18:59 06:59 18:59 Output Total 400 1250 Balance -400 -1250 Weight 153.3 kg Output: Urine 400 1250 Straight 500 Other: Voiding Method Indwelling Catheter Indwelling Catheter Indwelling Catheter # Bowel Movements 1 1 - Labs CBC & Chem 7: 10/11/20 06:25 10/11/20 06:25 Labs: Abnormal Lab Results - Last 24 Hours (Table) 10/11/20 10/11/20 Range/Units 06:25 06:25 RBC 3.68 L (3.80-5.40) m/uL Hgb 10.3 L (11.4-16.0) gm/dL MCHC 30.2 L (31.0-37.0) g/dL RDW 19.5 H (11.5-15.5) % Anion Gap 2.30 L (4.00-12.00) mmol/L BUN 8.0 L (9.0-27.0) mg/dL Creatinine 0.3 L (0.6-1.5) mg/dL BUN/Creatinine Ratio 26.67 H (12.00-20.00) Ratio Glucose 117 H (70-110) mg/dL Calcium 8.3 L (8.7-10.3) mg/dL Total Protein 4.6 L (6.2-8.2) g/dL Albumin 3.20 L (3.80-4.90) g/dL Globulin 1.4 L (1.6-3.3) g/dL
[2020-10-11] MEDS: HYDROcodone/APAP 7.5-325MG 1 EACH TAB PO PRN (16:20)
--- NOTE | 2020-10-11 17:02 | P.PN ---
Subjective Progress Note Date: 10/11/20 Claribel acosta, is a 75 female who currently is a resident of [facility] for rehabilitation after a prolonged admission to [facility] for Covid 19 pneumonia, patient states that 3 days ago she started having pain in the rectal area with constant liquid stool incontinence she was having external hemorrhoids with severe pain, she was transferred to the [facility], she was evaluated there and had evidence of proctitis computed tomography scan of the abdomen and pelvis was done and revealed evidence of dilated rectum with evidence of inflammation stools for C. diff was positive for C. diff antigen but negative for C. diff toxin. She was transferred to [facility] for further evaluation and treatment. On arrival to [facility] vital examination revealed a temperature of 98.3 pulse 74 respiration 18 blood pressure 120/62 pulse ox 92% on 2 L nasal cannula, white blood count was 10.1 hemoglobin 11.2 platelet count 301 patient was admitted to medical floor, home medications were resumed, patient was continued on oral vancomycin that was started at [facility] she was also started on IV Solu-Medrol consultation for gastroenterology was initiated. On review of systems patient is alert and oriented 3 in no distress she is complaining mostly of pain in the rectal area otherwise she denies any significant complaints she stated that her breathing has improved significantly since her recent admission with Covid 19 pneumonia she is currently maintained on oxygen at 2 L via nasal cannula there is no fever or chills no headache or dizziness no chest pain no palpitation no cough no nausea or vomiting no abdominal pain she is still complaining of diarrhea no blood in the stools no burning with urination no frequency or urgency and no hematuria. There is no weakness or numbness in any of the extremities there is no change in vision speech or gait. On 10/08/2020 patient was seen and examined on the medical floor she is alert and oriented 3 in no apparent distress, she is complaining of severe pain in the rectal area there is no fever or chills no headache or dizziness no chest pain no shortness of breath no cough no nausea or vomiting no abdominal pain no diarrhea no burning with urination no frequency or urgency and no hematuria On 10/09/2020 patient is alert and oriented 3. Patient still having signif icant pain to rectal area. Patient denies chest pain or shortness of breath. Patient denies nausea vomiting or diarrhea. Patient denies any urinary burning or frequency. Status post incision and drainage of thrombosed external hemorrhoid per Dr. Alatorre. Patient remains on Flagyl and oral vancomycin. On 10/10/2020 patient was seen and examined on the medical floor she is alert and oriented in no apparent distress she is still complaining of pain in the rectal area otherwise she denies any complaints there is no fever or chills no headache or dizziness no chest pain no shortness of breath no cough no nausea or vomiting no abdominal pain no diarrhea and no urinary symptoms. On 10/11/2020 patient is alert and oriented 3. Patient still having significant pain to rectal area. There is no fever or chills no headache or dizziness no chest pain no shortness of breath no cough no nausea or vomiting no abdominal pain no diarrhea and no urinary symptoms. Patient denies any urinary burning or frequency. Status post incision and drainage of thrombosed external hemorrhoid per Dr. Alatorre. Patient remains on Flagyl and oral vancomycin. Objective - Vital Signs Vital signs: Vital Signs Temp 98.1 F 10/11/20 14:00 Pulse 69 10/11/20 14:00 Resp 18 10/11/20 14:00 BP 100/61 10/11/20 14:00 Pulse Ox 98 10/11/20 14:00 Intake & Output 10/10/20 10/11/20 10/11/20 18:59 06:59 18:59 Output Total 400 1250 600 Balance -400 -1250 -600 Weight 153.3 kg Output: Urine 400 1250 600 Straight 500 600 Other: Voiding Method Indwelling Catheter Indwelling Catheter Indwelling Catheter # Bowel Movements 1 1 - Exam In general patient is alert, and oriented in no apparent distress HEENT head normocephalic and atraumatic Neck is supple no JVD no goiter no lymphadenopathy Chest exam reveals a few scattered rhonchi no wheezing Cardiac exam reveals regular heart sounds no gallops no murmurs Abdomen is soft nontender no organomegaly with normal bowel sounds Extremity exam reveals no edema no cyanosis or clubbing Neurological examination reveals no gross focal deficits - Labs CBC & Chem 7: 10/11/20 06:25 10/11/20 06:25 Labs: Abnormal Lab Results - Last 24 Hours (Table) 10/11/20 10/11/20 Range/Units 06:25 06:25 RBC 3.68 L (3.80-5.40) m/uL Hgb 10.3 L (11.4-16.0) gm/dL MCHC 30.2 L (31.0-37.0) g/dL RDW 19.5 H (11.5-15.5) % Anion Gap 2.30 L (4.00-12.00) mmol/L BUN 8.0 L (9.0-27.0) mg/dL Creatinine 0.3 L (0.6-1.5) mg/dL BUN/Creatinine Ratio 26.67 H (12.00-20.00) Ratio Glucose 117 H (70-110) mg/dL Calcium 8.3 L (8.7-10.3) mg/dL Total Protein 4.6 L (6.2-8.2) g/dL Albumin 3.20 L (3.80-4.90) g/dL Globulin 1.4 L (1.6-3.3) g/dL Assessment and Plan Plan: 1. Rectal pain, with evidence of proctitis on computed tomography scan done at [facility]. Status post incision and drainage of thrombosed external hemorrhoid on 10/07/2020 2. Possible C. diff colitis, testing at [facility] revealed positive antigen but negative toxin for C. diff, at this time will continue with oral vancomycin and recheck C. diff toxin. 3. Recent prolonged admission for Covid 19 pneumonia, patient is still requiring oxygen supplements. 4. Underlying history of scleroderma 5. Underlying history of pulmonary fibrosis 6. Underlying history of pulmonary hypertension 7. Generalized weakness with physical debility and gait disturbance, patient was admitted to [facility] for rehabilitation. At this time, home medications reviewed and reordered, continue with rectal steroids and IV steroids GI and surgical services following She remains on Flagyl and oral vancomycin
[2020-10-11] MEDS: MORPHINE SULFATE ER 15 MG TABLET PO SCH (20:25)
[2020-10-11] MEDS: MELATONIN 5 MG TABLET PO SCH (20:26)
[2020-10-11] MEDS: ASCORBIC ACID 500 MG TAB PO SCH (20:26)
[2020-10-11] MEDS: CHOLECALCIFEROL 1,000 UNIT TAB PO SCH (20:26)
[2020-10-11] MEDS: ATORVASTATIN 20 MG TAB PO SCH (20:26)
[2020-10-12] MEDS: HYDROCORTISONE 2.5% RECTAL CREAM 30 GM TUBE RECTAL SCH ×4 (04:32→20:03)
[2020-10-12] MEDS: traMADol 50 MG TAB PO SCH ×3 (04:32→17:11)
[2020-10-12] MEDS ORDERED: NON FORMULARY DRUG (Alendronate Sodium [Fosamax] 70 MG Tablet) PO SCH (06:00)
[2020-10-12 06:32] LABS: Anisocytosis Slight; Basophils # (A) 0.1 k/uL (0-0.2); Basophils % (A) 1 %; Eosinophils # (A) 0.2 k/uL (0-0.7); Eosinophils % (A) 2 %; HCT 34.1 % (34.0-46.0); HGB 10.7 gm/dL (11.4-16.0); Hypochromasia Moderate; Lymphocytes # (A) 1.5 k/uL (1.0-4.8); Lymphocytes % (A) 15 %; MCHC 31.4 g/dL (31.0-37.0); MCV 92.5 fL (80.0-100.0); Mean Platelet Volume 7.1; Monocytes # (A) 0.9 k/uL (0-1.0); Monocytes % (A) 9 %; Neutrophils # (A) 7.1 k/uL (1.3-7.7); Neutrophils % (A) 73 %; Platelet Count 345 k/uL (150-450); RBC 3.69 m/uL (3.80-5.40); RDW 19.4 % (11.5-15.5); WBC 9.7 k/uL (3.8-10.6)
[2020-10-12] MEDS: SODIUM CHLORIDE 0.9% 1,000 ML IV SCH ×3 (08:37→21:20)
[2020-10-12] MEDS: ASPIRIN 81 MG PO SCH (09:04)
[2020-10-12] MEDS: METOPROLOL TARTRATE 12.5 MG TAB PO SCH ×2 (09:04→20:01)
[2020-10-12] MEDS: metroNIDAZOLE 500 MG TAB PO SCH ×3 (09:04→20:00)
[2020-10-12] MEDS: MELOXICAM 7.5 MG TAB PO SCH (09:05)
[2020-10-12] MEDS: FAMOTIDINE 20 MG TAB PO SCH ×2 (09:05→17:11)
[2020-10-12] MEDS: GABAPENTIN 100 MG CAP PO SCH ×2 (09:05→20:00)
[2020-10-12] MEDS: MECLIZINE 12.5 MG TAB PO SCH ×3 (09:06→20:01)
[2020-10-12] MEDS: HYDROCORTISONE SUPPOSITORY 25 MG SUPP RECTAL SCH ×2 (09:06→20:39)
[2020-10-12] MEDS: NIFEdipine XL 30 MG TAB.ER.24 PO SCH ×2 (09:07→20:00)
[2020-10-12] MEDS: VANCOMYCIN 125 MG CAPSULE PO SCH ×4 (09:08→20:01)
[2020-10-12] MEDS: HYDROcodone/APAP 7.5-325MG 1 EACH TAB PO PRN (09:24)
[2020-10-12 10:22] LABS: African American GFR (CKD) 128.9 (60.0-200.0); Albumin 3.3 g/dL (3.80-4.90); Albumin/Globulin Ratio 2.36 (1.60-3.17); Anion Gap 6.9 mmol/L (4.00-12.00); BUN/Creat Ratio 26.67 Ratio (12.00-20.00); Calcium 8.7 mg/dL (8.7-10.3); Carbon Dioxide 29.1 mmol/L (21.6-31.8); Globulin 1.4 g/dL (1.6-3.3); Non-African American GFR(CKD) 111.2 (60.0-200.0); Total Bilirubin 0.3 mg/dL (0.2-1.2); Total Protein 4.7 g/dL (6.2-8.2)
[2020-10-12] MEDS: SENNOSIDES-DOCUSATE SODIUM 1 EACH TAB PO SCH (11:06)
--- NOTE | 2020-10-12 12:35 | P.PN ---
Subjective Progress Note Date: 10/12/20 CHIEF COMPLAINT: Thrombosed hemorrhoid HISTORY OF PRESENT ILLNESS: Patient is status post incision and drainage of thrombosed external hemorrhoid. Patient still complaining of rectal pain. She is having diarrhea. Stools are less frequent. Denies any nausea or vomiting. She is on regular diet. Afebrile. WBC 9.7 Hgb 10.7 PHYSICAL EXAM: VITAL SIGNS: Reviewed. GENERAL: Well-developed in no acute distress. HEENT: No sclera icterus. Extraocular movements grossly intact. Moist buccal mucosa. Head is atraumatic, normocephalic. ABDOMEN: Soft. Nondistended. Nontender. Right buttocks stage II ulcer. NEUROLOGIC: Alert and oriented. Cranial nerves II through XII grossly intact. ASSESSMENT: 1. Thrombosed external hemorrhoid is status post incision and drainage on 10/08/2020 PLAN: -Continue supportive care -Continue regular diet Physician Chemistry Department Chair note has been reviewed by physician. Signing provider agrees with the documented findings, assessment, and plan of care. Objective - Vital Signs Vital signs: Vital Signs Temp 98 F 10/12/20 07:17 Pulse 94 10/12/20 07:17 Resp 18 10/12/20 08:00 BP 128/74 10/12/20 07:17 Pulse Ox 91 L 10/12/20 07:17 Intake & Output 10/11/20 10/12/20 10/12/20 18:59 06:59 18:59 Intake Total 250 Output Total 600 900 Balance -600 -900 250 Weight 153.3 kg Intake: Oral 250 Output: Urine 600 900 Straight 600 Other: Voiding Method Indwelling Catheter Indwelling Catheter Indwelling Catheter - Labs CBC & Chem 7: 10/12/20 06:18 10/12/20 06:18 Labs: Abnormal Lab Results - Last 24 Hours (Table) 10/12/20 10/12/20 Range/Units 06:18 06:18 RBC 3.69 L (3.80-5.40) m/uL Hgb 10.7 L (11.4-16.0) gm/dL RDW 19.4 H (11.5-15.5) % BUN 8.0 L (9.0-27.0) mg/dL Creatinine 0.3 L (0.6-1.5) mg/dL BUN/Creatinine Ratio 26.67 H (12.00-20.00) Ratio Glucose 113 H (70-110) mg/dL Total Protein 4.7 L (6.2-8.2) g/dL Albumin 3.30 L (3.80-4.90) g/dL Globulin 1.4 L (1.6-3.3) g/dL
--- NOTE | 2020-10-12 14:07 | P.PN ---
Subjective Progress Note Date: 10/12/20 Claribel acosta, is a 75 female who currently is a resident of [facility] for rehabilitation after a prolonged admission to [facility] for Covid 19 pneumonia, patient states that 3 days ago she started having pain in the rectal area with constant liquid stool incontinence she was having external hemorrhoids with severe pain, she was transferred to the [facility], she was evaluated there and had evidence of proctitis computed tomography scan of the abdomen and pelvis was done and revealed evidence of dilated rectum with evidence of inflammation stools for C. diff was positive for C. diff antigen but negative for C. diff toxin. She was transferred to [facility] for further evaluation and treatment. On arrival to [facility] vital examination revealed a temperature of 98.3 pulse 74 respiration 18 blood pressure 120/62 pulse ox 92% on 2 L nasal cannula, white blood count was 10.1 hemoglobin 11.2 platelet count 301 patient was admitted to medical floor, home medications were resumed, patient was continued on oral vancomycin that was started at [facility] she was also started on IV Solu-Medrol consultation for gastroenterology was initiated. On review of systems patient is alert and oriented 3 in no distress she is complaining mostly of pain in the rectal area otherwise she denies any significant complaints she stated that her breathing has improved significantly since her recent admission with Covid 19 pneumonia she is currently maintained on oxygen at 2 L via nasal cannula there is no fever or chills no headache or dizziness no chest pain no palpitation no cough no nausea or vomiting no abdominal pain she is still complaining of diarrhea no blood in the stools no burning with urination no frequency or urgency and no hematuria. There is no weakness or numbness in any of the extremities there is no change in vision speech or gait. On 10/08/2020 patient was seen and examined on the medical floor she is alert and oriented 3 in no apparent distress, she is complaining of severe pain in the rectal area there is no fever or chills no headache or dizziness no chest pain no shortness of breath no cough no nausea or vomiting no abdominal pain no diarrhea no burning with urination no frequency or urgency and no hematuria On 10/09/2020 patient is alert and oriented 3. Patient still having signif icant pain to rectal area. Patient denies chest pain or shortness of breath. Patient denies nausea vomiting or diarrhea. Patient denies any urinary burning or frequency. Status post incision and drainage of thrombosed external hemorrhoid per Dr. Alatorre. Patient remains on Flagyl and oral vancomycin. On 10/10/2020 patient was seen and examined on the medical floor she is alert and oriented in no apparent distress she is still complaining of pain in the rectal area otherwise she denies any complaints there is no fever or chills no headache or dizziness no chest pain no shortness of breath no cough no nausea or vomiting no abdominal pain no diarrhea and no urinary symptoms. On 10/11/2020 patient is alert and oriented 3. Patient still having significant pain to rectal area. There is no fever or chills no headache or dizziness no chest pain no shortness of breath no cough no nausea or vomiting no abdominal pain no diarrhea and no urinary symptoms. Patient denies any urinary burning or frequency. Status post incision and drainage of thrombosed external hemorrhoid per Dr. Alatorre. Patient remains on Flagyl and oral vancomycin. On 10/12/2020 patient is alert and oriented 3. Patient still reporting significant pain to rectal area. Patient reports that she does not feel ready for discharge. We'll anticipate discharge for tomorrow. At this time patient denies chest pain or shortness of breath. Patient denies nausea vomiting or diarrhea. Objective - Vital Signs Vital signs: Vital Signs Temp 98 F 10/12/20 07:17 Pulse 94 10/12/20 07:17 Resp 18 10/12/20 08:00 BP 128/74 10/12/20 07:17 Pulse Ox 91 L 10/12/20 07:17 Intake & Output 10/11/20 10/12/20 10/12/20 18:59 06:59 18:59 Intake Total 250 Output Total 600 900 Balance -600 -900 250 Weight 153.3 kg Intake: Oral 250 Output: Urine 600 900 Straight 600 Other: Voiding Method Indwelling Catheter Indwelling Catheter Indwelling Catheter - Exam In general patient is alert, and oriented in no apparent distress HEENT head normocephalic and atraumatic Neck is supple no JVD no goiter no lymphadenopathy Chest exam reveals a few scattered rhonchi no wheezing Cardiac exam reveals regular heart sounds no gallops no murmurs Abdomen is soft nontender no organomegaly with normal bowel sounds Extremity exam reveals no edema no cyanosis or clubbing Neurological examination reveals no gross focal deficits - Labs CBC & Chem 7: 10/12/20 06:18 10/12/20 06:18 Labs: Abnormal Lab Results - Last 24 Hours (Table) 10/12/20 10/12/20 Range/Units 06:18 06:18 RBC 3.69 L (3.80-5.40) m/uL Hgb 10.7 L (11.4-16.0) gm/dL RDW 19.4 H (11.5-15.5) % BUN 8.0 L (9.0-27.0) mg/dL Creatinine 0.3 L (0.6-1.5) mg/dL BUN/Creatinine Ratio 26.67 H (12.00-20.00) Ratio Glucose 113 H (70-110) mg/dL Total Protein 4.7 L (6.2-8.2) g/dL Albumin 3.30 L (3.80-4.90) g/dL Globulin 1.4 L (1.6-3.3) g/dL Assessment and Plan Plan: 1. Rectal pain, with evidence of proctitis on computed tomography scan done at [facility]. Status post incision and drainage of thrombosed external hemorrhoid on 10/07/2020 2. Possible C. diff colitis, testing at [facility] revealed positive antigen but negative toxin for C. diff, at this time will continue with oral vancomycin and recheck C. diff toxin. C. diff negative on 10/07/2020 3. Recent prolonged admission for Covid 19 pneumonia, patient is still requiring oxygen supplements. 4. Underlying history of scleroderma 5. Underlying history of pulmonary fibrosis 6. Underlying history of pulmonary hypertension 7. Generalized weakness with physical debility and gait disturbance, patient was admitted to [facility] for rehabilitation. At this time, home medications reviewed and reordered, continue with rectal steroids and IV steroids GI and surgical services following She remains on Flagyl and oral vancomycin
[2020-10-12] MEDS: ASCORBIC ACID 500 MG TAB PO SCH (20:00)
[2020-10-12] MEDS: ATORVASTATIN 20 MG TAB PO SCH (20:00)
[2020-10-12] MEDS: CHOLECALCIFEROL 1,000 UNIT TAB PO SCH (20:00)
[2020-10-12] MEDS: MELATONIN 5 MG TABLET PO SCH (20:00)
[2020-10-12] MEDS: MORPHINE SULFATE ER 15 MG TABLET PO SCH (20:01)
[2020-10-12] MEDS: ACETAMINOPHEN TAB 325 MG TAB PO PRN (20:50)
[2020-10-13] MEDS: traMADol 50 MG TAB PO SCH ×5 (00:49→22:56)
[2020-10-13] MEDS: HYDROcodone/APAP 7.5-325MG 1 EACH TAB PO PRN ×3 (03:53→14:42)
[2020-10-13] MEDS: SODIUM CHLORIDE 0.9% 1,000 ML IV SCH ×3 (05:10→22:57)
[2020-10-13 06:43] LABS: Anisocytosis Slight; Basophils # (A) 0.1 k/uL (0-0.2); Basophils % (A) 1 %; Eosinophils # (A) 0.2 k/uL (0-0.7); Eosinophils % (A) 2 %; HGB 10.4 gm/dL (11.4-16.0); Hypochromasia Moderate; Lymphocytes # (A) 1.3 k/uL (1.0-4.8); Lymphocytes % (A) 15 %; MCH 28.2 pg (25.0-35.0); MCHC 30.4 g/dL (31.0-37.0); MCV 92.5 fL (80.0-100.0); Mean Platelet Volume 7.4; Monocytes # (A) 0.9 k/uL (0-1.0); Monocytes % (A) 10 %; Neutrophils # (A) 6.3 k/uL (1.3-7.7); Neutrophils % (A) 70 %; Platelet Count 374 k/uL (150-450); RBC 3.68 m/uL (3.80-5.40); RDW 19.7 % (11.5-15.5)
[2020-10-13] MEDS: SENNOSIDES-DOCUSATE SODIUM 1 EACH TAB PO SCH (07:16)
[2020-10-13] MEDS: metroNIDAZOLE 500 MG TAB PO SCH ×3 (07:16→21:56)
[2020-10-13] MEDS: ASPIRIN 81 MG PO SCH (07:16)
[2020-10-13] MEDS: METOPROLOL TARTRATE 12.5 MG TAB PO SCH ×2 (07:17→21:58)
[2020-10-13] MEDS: MELOXICAM 7.5 MG TAB PO SCH (07:17)
[2020-10-13] MEDS: GABAPENTIN 100 MG CAP PO SCH ×2 (07:17→21:56)
[2020-10-13] MEDS: FAMOTIDINE 20 MG TAB PO SCH ×2 (07:17→16:47)
[2020-10-13] MEDS: VANCOMYCIN 125 MG CAPSULE PO SCH ×4 (07:32→22:57)
[2020-10-13] MEDS: HYDROCORTISONE SUPPOSITORY 25 MG SUPP RECTAL SCH ×2 (07:33→22:00)
[2020-10-13] MEDS: MECLIZINE 12.5 MG TAB PO SCH ×3 (07:33→22:57)
[2020-10-13] MEDS: NIFEdipine XL 30 MG TAB.ER.24 PO SCH ×2 (07:33→21:59)
[2020-10-13 10:47] LABS: African American GFR (CKD) 128.9 (60.0-200.0); Albumin 3.3 g/dL (3.80-4.90); Albumin/Globulin Ratio 2.54 (1.60-3.17); Anion Gap 3.4 mmol/L (4.00-12.00); Calcium 8.7 mg/dL (8.7-10.3); Carbon Dioxide 30.6 mmol/L (21.6-31.8); Globulin 1.3 g/dL (1.6-3.3); Non-African American GFR(CKD) 111.2 (60.0-200.0); Total Bilirubin 0.4 mg/dL (0.3-1.2); Total Protein 4.6 g/dL (6.2-8.2)
[2020-10-13] MEDS: HYDROCORTISONE 2.5% RECTAL CREAM 30 GM TUBE RECTAL SCH ×2 (11:34→22:02)
--- NOTE | 2020-10-13 11:49 | P.PN ---
Subjective Progress Note Date: 10/13/20 CHIEF COMPLAINT: Thrombosed hemorrhoid HISTORY OF PRESENT ILLNESS: Patient is status post incision and drainage of thrombosed external hemorrhoid. Patient still complaining of rectal pain. She is having less diarrhea. Denies any nausea or vomiting. She is on regular diet. She had issues with urinary retention today, required to be straight. Afebrile. WBC 9.0 PHYSICAL EXAM: VITAL SIGNS: Reviewed. GENERAL: Well-developed in no acute distress. HEENT: No sclera icterus. Extraocular movements grossly intact. Moist buccal mucosa. Head is atraumatic, normocephalic. ABDOMEN: Soft. Nondistended. Nontender. Right buttocks stage II ulcer. NEUROLOGIC: Alert and oriented. Cranial nerves II through XII grossly intact. ASSESSMENT: 1. Thrombosed external hemorrhoid is status post incision and drainage on 10/08/2020 PLAN: -Continue supportive care -Continue regular diet -Patient follow up with Dr. Alatorre in 1 week after discharge Physician Hop Picker note has been reviewed by physician. Signing provider agrees with the documented findings, assessment, and plan of care. Objective - Vital Signs Vital signs: Vital Signs Temp 97.8 F 10/13/20 07:15 Pulse 89 10/13/20 08:00 Resp 17 10/13/20 08:00 BP 131/72 10/13/20 07:15 Pulse Ox 99 10/13/20 07:15 Intake & Output 10/12/20 10/13/20 10/13/20 18:59 06:59 18:59 Intake Total 450 Output Total 300 Balance 450 -300 Intake: Oral 450 Output: Urine 300 Straight 300 Other: Voiding Method Indwelling Catheter Diaper Diaper Incontinent Incontinent # Bowel Movements 1 3 - Labs CBC & Chem 7: 10/13/20 06:10 10/13/20 06:10 Labs: Abnormal Lab Results - Last 24 Hours (Table) 10/13/20 10/13/20 Range/Units 06:10 06:10 RBC 3.68 L (3.80-5.40) m/uL Hgb 10.4 L (11.4-16.0) gm/dL MCHC 30.4 L (31.0-37.0) g/dL RDW 19.7 H (11.5-15.5) % Anion Gap 3.40 L (4.00-12.00) mmol/L Creatinine 0.3 L (0.6-1.5) mg/dL BUN/Creatinine Ratio 40.00 H (12.00-20.00) Ratio Glucose 114 H (70-110) mg/dL Total Protein 4.6 L (6.2-8.2) g/dL Albumin 3.30 L (3.80-4.90) g/dL Globulin 1.3 L (1.6-3.3) g/dL
[2020-10-13] MEDS ORDERED: MAGNESIUM CITRATE 296 ML BOTTLE PO ONE (13:28)
--- NOTE | 2020-10-13 17:35 | P.PN ---
Subjective Progress Note Date: 10/13/20 Claribel acosta, is a 75 female who currently is a resident of [facility] for rehabilitation after a prolonged admission to [facility] for Covid 19 pneumonia, patient states that 3 days ago she started having pain in the rectal area with constant liquid stool incontinence she was having external hemorrhoids with severe pain, she was transferred to the [facility], she was evaluated there and had evidence of proctitis computed tomography scan of the abdomen and pelvis was done and revealed evidence of dilated rectum with evidence of inflammation stools for C. diff was positive for C. diff antigen but negative for C. diff toxin. She was transferred to [facility] for further evaluation and treatment. On arrival to [facility] vital examination revealed a temperature of 98.3 pulse 74 respiration 18 blood pressure 120/62 pulse ox 92% on 2 L nasal cannula, white blood count was 10.1 hemoglobin 11.2 platelet count 301 patient was admitted to medical floor, home medications were resumed, patient was continued on oral vancomycin that was started at [facility] she was also started on IV Solu-Medrol consultation for gastroenterology was initiated. On review of systems patient is alert and oriented 3 in no distress she is complaining mostly of pain in the rectal area otherwise she denies any significant complaints she stated that her breathing has improved significantly since her recent admission with Covid 19 pneumonia she is currently maintained on oxygen at 2 L via nasal cannula there is no fever or chills no headache or dizziness no chest pain no palpitation no cough no nausea or vomiting no abdominal pain she is still complaining of diarrhea no blood in the stools no burning with urination no frequency or urgency and no hematuria. There is no weakness or numbness in any of the extremities there is no change in vision speech or gait. On 10/08/2020 patient was seen and examined on the medical floor she is alert and oriented 3 in no apparent distress, she is complaining of severe pain in the rectal area there is no fever or chills no headache or dizziness no chest pain no shortness of breath no cough no nausea or vomiting no abdominal pain no diarrhea no burning with urination no frequency or urgency and no hematuria On 10/09/2020 patient is alert and oriented 3. Patient still having signif icant pain to rectal area. Patient denies chest pain or shortness of breath. Patient denies nausea vomiting or diarrhea. Patient denies any urinary burning or frequency. Status post incision and drainage of thrombosed external hemorrhoid per Dr. Alatorre. Patient remains on Flagyl and oral vancomycin. On 10/10/2020 patient was seen and examined on the medical floor she is alert and oriented in no apparent distress she is still complaining of pain in the rectal area otherwise she denies any complaints there is no fever or chills no headache or dizziness no chest pain no shortness of breath no cough no nausea or vomiting no abdominal pain no diarrhea and no urinary symptoms. On 10/11/2020 patient is alert and oriented 3. Patient still having significant pain to rectal area. There is no fever or chills no headache or dizziness no chest pain no shortness of breath no cough no nausea or vomiting no abdominal pain no diarrhea and no urinary symptoms. Patient denies any urinary burning or frequency. Status post incision and drainage of thrombosed external hemorrhoid per Dr. Alatorre. Patient remains on Flagyl and oral vancomycin. On 10/12/2020 patient is alert and oriented 3. Patient still reporting significant pain to rectal area. Patient reports that she does not feel ready for discharge. We'll anticipate discharge for tomorrow. At this time patient denies chest pain or shortness of breath. Patient denies nausea vomiting or diarrhea. On 10/13/2020 patient was seen and examined on the medical floor she is alert and oriented 3 in no distress she is complaining of urinary retention, she had straight cath twice today she was retaining to 500 mL of urine in the bladder, she is still complaining of some rectal pain otherwise she denies any complaints there is no fever or chills no headache or dizziness no chest pain no shortness of breath no cough no nausea or vomiting no abdominal pain no diarrhea and no urinary symptoms Objective - Vital Signs Vital signs: Vital Signs Temp 98.7 F 10/13/20 14:06 Pulse 87 10/13/20 14:06 Resp 17 10/13/20 14:06 BP 134/74 10/13/20 14:06 Pulse Ox 97 10/13/20 14:06 Intake & Output 10/12/20 10/13/20 10/13/20 18:59 06:59 18:59 Intake Total 450 Output Total 300 500 Balance 450 -300 -500 Intake: Oral 450 Output: Urine 300 500 Straight 300 500 Other: Voiding Method Indwelling Catheter Diaper Diaper Incontinent Incontinent # Bowel Movements 1 3 - Exam In general patient is alert, and oriented in no apparent distress HEENT head normocephalic and atraumatic Neck is supple no JVD no goiter no lymphadenopathy Chest exam reveals a few scattered rhonchi no wheezing Cardiac exam reveals regular heart sounds no gallops no murmurs Abdomen is soft nontender no organomegaly with normal bowel sounds Extremity exam reveals no edema no cyanosis or clubbing Neurological examination reveals no gross focal deficits - Labs CBC & Chem 7: 10/13/20 06:10 10/13/20 06:10 Labs: Abnormal Lab Results - Last 24 Hours (Table) 10/13/20 10/13/20 Range/Units 06:10 06:10 RBC 3.68 L (3.80-5.40) m/uL Hgb 10.4 L (11.4-16.0) gm/dL MCHC 30.4 L (31.0-37.0) g/dL RDW 19.7 H (11.5-15.5) % Anion Gap 3.40 L (4.00-12.00) mmol/L Creatinine 0.3 L (0.6-1.5) mg/dL BUN/Creatinine Ratio 40.00 H (12.00-20.00) Ratio Glucose 114 H (70-110) mg/dL Total Protein 4.6 L (6.2-8.2) g/dL Albumin 3.30 L (3.80-4.90) g/dL Globulin 1.3 L (1.6-3.3) g/dL Assessment and Plan Plan: 1. Rectal pain, with evidence of proctitis on computed tomography scan done at [facility]. Status post incision and drainage of thrombosed external hemorrhoid on 10/07/2020 2. Possible C. diff colitis, testing at [facility] revealed positive antigen but negative toxin for C. diff, at this time will continue with oral vancomycin and recheck C. diff toxin. C. diff negative on 10/07/2020 3. Recent prolonged admission for Covid 19 pneumonia, patient is still requiring oxygen supplements. 4. Underlying history of scleroderma 5. Underlying history of pulmonary fibrosis 6. Underlying history of pulmonary hypertension 7. Generalized weakness with physical debility and gait disturbance, patient was admitted to [facility] for rehabilitation. At this time, home medications reviewed and reordered, continue with rectal steroids and IV steroids GI and surgical services following She remains on Flagyl and oral vancomycin
[2020-10-13] MEDS: MELATONIN 5 MG TABLET PO SCH (21:56)
[2020-10-13] MEDS: MORPHINE SULFATE ER 15 MG TABLET PO SCH (21:56)
[2020-10-13] MEDS: ASCORBIC ACID 500 MG TAB PO SCH (21:58)
[2020-10-13] MEDS: ATORVASTATIN 20 MG TAB PO SCH (21:58)
[2020-10-13] MEDS: CHOLECALCIFEROL 1,000 UNIT TAB PO SCH (21:58)
[2020-10-14] MEDS: traMADol 50 MG TAB PO SCH ×4 (05:42→23:33)
[2020-10-14] MEDS: HYDROCORTISONE 2.5% RECTAL CREAM 30 GM TUBE RECTAL SCH ×3 (05:43→20:01)
[2020-10-14] MEDS: SODIUM CHLORIDE 0.9% 1,000 ML IV SCH ×3 (05:43→22:47)
[2020-10-14 07:54] LABS: Anisocytosis Slight; Basophils # (A) 0.1 k/uL (0-0.2); Basophils % (A) 1 %; Eosinophils # (A) 0.1 k/uL (0-0.7); Eosinophils % (A) 1 %; HCT 34.6 % (34.0-46.0); HGB 10.2 gm/dL (11.4-16.0); Hypochromasia Marked; Lymphocytes # (A) 1.1 k/uL (1.0-4.8); Lymphocytes % (A) 12 %; MCHC 29.6 g/dL (31.0-37.0); MCV 94.4 fL (80.0-100.0); Macrocytosis Slight; Mean Platelet Volume 7.1; Monocytes # (A) 0.8 k/uL (0-1.0); Monocytes % (A) 9 %; Neutrophils # (A) 7.2 k/uL (1.3-7.7); Neutrophils % (A) 75 %; Platelet Count 369 k/uL (150-450); RBC 3.66 m/uL (3.80-5.40); RDW 19.5 % (11.5-15.5); WBC 9.5 k/uL (3.8-10.6)
[2020-10-14] MEDS: GABAPENTIN 100 MG CAP PO SCH ×2 (08:36→20:00)
[2020-10-14] MEDS: FAMOTIDINE 20 MG TAB PO SCH ×2 (08:36→17:38)
[2020-10-14] MEDS: METOPROLOL TARTRATE 12.5 MG TAB PO SCH ×2 (08:36→20:00)
[2020-10-14] MEDS: MELOXICAM 7.5 MG TAB PO SCH (08:36)
[2020-10-14] MEDS: ASPIRIN 81 MG PO SCH (08:36)
[2020-10-14] MEDS: MECLIZINE 12.5 MG TAB PO SCH ×3 (08:38→20:01)
[2020-10-14] MEDS: NIFEdipine XL 30 MG TAB.ER.24 PO SCH ×2 (08:38→20:01)
[2020-10-14] MEDS: HYDROCORTISONE SUPPOSITORY 25 MG SUPP RECTAL SCH ×2 (08:38→20:01)
[2020-10-14] MEDS ORDERED: MAGNESIUM CITRATE 296 ML BOTTLE PO ONE (11:30)
[2020-10-14 11:50] LABS: African American GFR (CKD) 128.9 (60.0-200.0); Albumin 3.3 g/dL (3.80-4.90); Albumin/Globulin Ratio 2.36 (1.60-3.17); Anion Gap 12.2 mmol/L (4.00-12.00); BUN/Creat Ratio 26.67 Ratio (12.00-20.00); Calcium 8.9 mg/dL (8.7-10.3); Carbon Dioxide 28.8 mmol/L (21.6-31.8); Globulin 1.4 g/dL (1.6-3.3); Non-African American GFR(CKD) 111.2 (60.0-200.0); Potassium 4.3 mmol/L (3.5-5.5); Total Bilirubin 0.3 mg/dL (0.3-1.2); Total Protein 4.7 g/dL (6.2-8.2)
--- NOTE | 2020-10-14 12:52 | P.PN ---
Subjective Progress Note Date: 10/14/20 CHIEF COMPLAINT: Thrombosed hemorrhoid HISTORY OF PRESENT ILLNESS: Patient is status post incision and drainage of thrombosed external hemorrhoid. Patient did receive a bottle of mag citrate yesterday. Patient reports having a good bowel movement. It did help relieve pressure and pain in the rectal area. Patient will get another bottle of mag citrate today. She is having issues with urinary retention. Urology is now on consult. Denies any nausea or vomiting. She is on regular diet. Afebrile. WBC 9.5 PHYSICAL EXAM: VITAL SIGNS: Reviewed. GENERAL: Well-developed in no acute distress. HEENT: No sclera icterus. Extraocular movements grossly intact. Moist buccal mucosa. Head is atraumatic, normocephalic. ABDOMEN: Soft. Nondistended. Nontender. Right buttocks stage II ulcer. NEUROLOGIC: Alert and oriented. Cranial nerves II through XII grossly intact. ASSESSMENT: 1. Thrombosed external hemorrhoid status post incision and drainage on 10/08/2020 2. Rectal pain improving PLAN: -Continue supportive care -We'll give patient another bottle of mag citrate -Continue regular diet -Patient follow up with Dr. Alatorre in 1 week after discharge Physician Bank Note Designer note has been reviewed by physician. Signing provider agrees with the documented findings, assessment, and plan of care. Objective - Vital Signs Vital signs: Vital Signs Temp 97.8 F 10/14/20 07:48 Pulse 82 10/14/20 07:48 Resp 16 10/14/20 07:48 BP 113/68 10/14/20 07:48 Pulse Ox 98 10/14/20 07:48 Intake & Output 10/13/20 10/14/20 10/14/20 18:59 06:59 18:59 Output Total 500 650 Balance -500 -650 Output: Urine 500 650 Straight 500 Uretheral (Panchal) 650 Other: Voiding Method Diaper Diaper Indwelling Catheter Incontinent Incontinent # Voids 0 # Bowel Movements 2 6 1 - Labs CBC & Chem 7: 10/14/20 07:19 10/14/20 07:19 Labs: Abnormal Lab Results - Last 24 Hours (Table) 10/14/20 10/14/20 Range/Units 07:19 07:19 RBC 3.66 L (3.80-5.40) m/uL Hgb 10.2 L (11.4-16.0) gm/dL MCHC 29.6 L (31.0-37.0) g/dL RDW 19.5 H (11.5-15.5) % Chloride 95 L (96-109) mmol/L Anion Gap 12.20 H (4.00-12.00) mmol/L BUN 8.0 L (9.0-27.0) mg/dL Creatinine 0.3 L (0.6-1.5) mg/dL BUN/Creatinine Ratio 26.67 H (12.00-20.00) Ratio Glucose 111 H (70-110) mg/dL Total Protein 4.7 L (6.2-8.2) g/dL Albumin 3.30 L (3.80-4.90) g/dL Globulin 1.4 L (1.6-3.3) g/dL
[2020-10-14] MEDS: SENNOSIDES-DOCUSATE SODIUM 1 EACH TAB PO SCH (13:31)
--- NOTE | 2020-10-14 13:37 | P.PN ---
Subjective Progress Note Date: 10/14/20 Claribel acosta, is a 75 female who currently is a resident of [facility] for rehabilitation after a prolonged admission to [facility] for Covid 19 pneumonia, patient states that 3 days ago she started having pain in the rectal area with constant liquid stool incontinence she was having external hemorrhoids with severe pain, she was transferred to the [facility], she was evaluated there and had evidence of proctitis computed tomography scan of the abdomen and pelvis was done and revealed evidence of dilated rectum with evidence of inflammation stools for C. diff was positive for C. diff antigen but negative for C. diff toxin. She was transferred to [facility] for further evaluation and treatment. On arrival to [facility] vital examination revealed a temperature of 98.3 pulse 74 respiration 18 blood pressure 120/62 pulse ox 92% on 2 L nasal cannula, white blood count was 10.1 hemoglobin 11.2 platelet count 301 patient was admitted to medical floor, home medications were resumed, patient was continued on oral vancomycin that was started at [facility] she was also started on IV Solu-Medrol consultation for gastroenterology was initiated. On review of systems patient is alert and oriented 3 in no distress she is complaining mostly of pain in the rectal area otherwise she denies any significant complaints she stated that her breathing has improved significantly since her recent admission with Covid 19 pneumonia she is currently maintained on oxygen at 2 L via nasal cannula there is no fever or chills no headache or dizziness no chest pain no palpitation no cough no nausea or vomiting no abdominal pain she is still complaining of diarrhea no blood in the stools no burning with urination no frequency or urgency and no hematuria. There is no weakness or numbness in any of the extremities there is no change in vision speech or gait. On 10/08/2020 patient was seen and examined on the medical floor she is alert and oriented 3 in no apparent distress, she is complaining of severe pain in the rectal area there is no fever or chills no headache or dizziness no chest pain no shortness of breath no cough no nausea or vomiting no abdominal pain no diarrhea no burning with urination no frequency or urgency and no hematuria On 10/09/2020 patient is alert and oriented 3. Patient still having signif icant pain to rectal area. Patient denies chest pain or shortness of breath. Patient denies nausea vomiting or diarrhea. Patient denies any urinary burning or frequency. Status post incision and drainage of thrombosed external hemorrhoid per Dr. Alatorre. Patient remains on Flagyl and oral vancomycin. On 10/10/2020 patient was seen and examined on the medical floor she is alert and oriented in no apparent distress she is still complaining of pain in the rectal area otherwise she denies any complaints there is no fever or chills no headache or dizziness no chest pain no shortness of breath no cough no nausea or vomiting no abdominal pain no diarrhea and no urinary symptoms. On 10/11/2020 patient is alert and oriented 3. Patient still having significant pain to rectal area. There is no fever or chills no headache or dizziness no chest pain no shortness of breath no cough no nausea or vomiting no abdominal pain no diarrhea and no urinary symptoms. Patient denies any urinary burning or frequency. Status post incision and drainage of thrombosed external hemorrhoid per Dr. Alatorre. Patient remains on Flagyl and oral vancomycin. On 10/12/2020 patient is alert and oriented 3. Patient still reporting significant pain to rectal area. Patient reports that she does not feel ready for discharge. We'll anticipate discharge for tomorrow. At this time patient denies chest pain or shortness of breath. Patient denies nausea vomiting or diarrhea. On 10/13/2020 patient was seen and examined on the medical floor she is alert and oriented 3 in no distress she is complaining of urinary retention, she had straight cath twice today she was retaining to 500 mL of urine in the bladder, she is still complaining of some rectal pain otherwise she denies any complaints there is no fever or chills no headache or dizziness no chest pain no shortness of breath no cough no nausea or vomiting no abdominal pain no diarrhea and no urinary symptoms On 10/14/2020 Patient was seen and examined on the medical floor she is alert and oriented 3 in no apparent distress, yesterday she had urine retention, she had straight catheterization 3 times then had a Panchal catheter inserted, urology consultation was requested, otherwise patient is still complaining of some pain in the rectal area she denies any other complaints there is no fever or chills no headache or dizziness no chest pain no shortness of breath no cough no nausea or vomiting no abdominal pain no diarrhea no blood in the stools, Panchal catheter is inserted for urinary retention. Objective - Vital Signs Vital signs: Vital Signs Temp 97.8 F 10/14/20 07:48 Pulse 82 10/14/20 07:48 Resp 16 10/14/20 07:48 BP 113/68 10/14/20 07:48 Pulse Ox 98 10/14/20 07:48 Intake & Output 10/13/20 10/14/20 10/14/20 18:59 06:59 18:59 Output Total 500 650 Balance -500 -650 Output: Urine 500 650 Straight 500 Uretheral (Panchal) 650 Other: Voiding Method Diaper Diaper Indwelling Catheter Incontinent Incontinent # Voids 0 # Bowel Movements 2 6 1 - Exam In general patient is alert, and oriented in no apparent distress HEENT head normocephalic and atraumatic Neck is supple no JVD no goiter no lymphadenopathy Chest exam reveals a few scattered rhonchi no wheezing Cardiac exam reveals regular heart sounds no gallops no murmurs Abdomen is soft nontender no organomegaly with normal bowel sounds Extremity exam reveals no edema no cyanosis or clubbing Neurological examination reveals no gross focal deficits - Labs CBC & Chem 7: 10/14/20 07:19 10/14/20 07:19 Labs: Abnormal Lab Results - Last 24 Hours (Table) 10/14/20 10/14/20 Range/Units 07:19 07:19 RBC 3.66 L (3.80-5.40) m/uL Hgb 10.2 L (11.4-16.0) gm/dL MCHC 29.6 L (31.0-37.0) g/dL RDW 19.5 H (11.5-15.5) % Chloride 95 L (96-109) mmol/L Anion Gap 12.20 H (4.00-12.00) mmol/L BUN 8.0 L (9.0-27.0) mg/dL Creatinine 0.3 L (0.6-1.5) mg/dL BUN/Creatinine Ratio 26.67 H (12.00-20.00) Ratio Glucose 111 H (70-110) mg/dL Total Protein 4.7 L (6.2-8.2) g/dL Albumin 3.30 L (3.80-4.90) g/dL Globulin 1.4 L (1.6-3.3) g/dL Assessment and Plan Plan: 1. Rectal pain, with evidence of proctitis on computed tomography scan done at [facility]. Status post incision and drainage of thrombosed external hemorrhoid on 10/07/2020 2. Possible C. diff colitis, testing at [facility] revealed positive antigen but negative toxin for C. diff, at this time will continue with oral vancomycin and recheck C. diff toxin. C. diff negative on 10/07/2020 3. Recent prolonged admission for Covid 19 pneumonia, patient is still requiring oxygen supplements. 4. Underlying history of scleroderma 5. Underlying history of pulmonary fibrosis 6. Underlying history of pulmonary hypertension 7. Generalized weakness with physical debility and gait disturbance, patient was admitted to [facility] for rehabilitation. 8. Urinary retention Panchal catheter inserted awaiting urology consultation At this time, home medications reviewed and reordered, continue with rectal ster oids and IV steroids GI and surgical services following She remains on Flagyl and oral vancomycin
--- NOTE | 2020-10-14 18:48 | P.GSCN ---
History of Present Illness Consult date: 10/14/20 Reason for Consult: Urinary retention History of present illness: This is a 75-year-old female admitted to the hospital with thrombosed external hemorrhoid, and possible C diff infection. She developed urinary retention during her hospital admission, required CIC 3, and subsequently a Panchal was placed for PVR of 600 mL. Denies any voiding issues at baseline. No history of kidney stones or gross hematuria. No previous episode of urinary retention. She has been complaining of constipation during this hospital admission Review of Systems - Constitutional Denies chills, Denies fever - EENT Ears, nose, mouth and throat: Denies dysphagia - Cardiovascular Denies chest pain, Denies shortness of breath - Respiratory Denies cough, Denies 7 - Gastrointestinal Reports constipation, Denies nausea, Denies vomiting - Genitourinary Genitourinary: Reports difficulty voiding, Denies dysuria, Denies flank pain, Denies hematuria - Neurological Denies headaches, Denies syncope 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 Does NOT want to ever return there. Spouse was admitted to [facility] in [place] with [facility]. Pt last spoke to him 09/09 and currently doesnt know his status or whereabouts. Smoking Status: Never smoker Past Alcohol Use History: None Reported Past Drug Use History: None Reported - Past Family History Mother Family Medical History: Dementia, Hypertension Additional Family Medical History / Comment(s): Lived until 102 Father Family Medical History: COPD Additional Family Medical History / Comment(s): in his late 60's from emphysema Medications and Allergies Home Medications Medication Instructions Recorded Confirmed Type NIFEdipine [Nifedical Xl] 30 mg PO BID 06/28/15 10/06/20 History Acetaminophen [Tylenol Arthritis] 650 mg PO Q8H PRN 08/27/20 10/06/20 History Cholecalciferol [Vitamin D3 (25 1,000 unit PO HS 08/27/20 10/06/20 History Mcg = 1000 Iu)] Mycophenolate Mofetil [Cellcept] 500 mg PO TID@0500,1300,2100 08/27/20 10/06/20 History Pseudoephedrine 12Hr [Sudafed 12 120 mg PO Q12H PRN 08/27/20 10/06/20 History Hour] traMADol HCL 50 mg PO Q6H 08/27/20 10/06/20 History Celecoxib [CeleBREX] 200 mg PO BID 08/29/20 10/06/20 History Melatonin 5 mg PO HS tablet 09/10/20 10/06/20 Rx Metoprolol Tartrate [Lopressor] 12.5 mg PO BID tab 09/10/20 10/06/20 Rx Ascorbic Acid [Vitamin C] 1,000 mg PO HS 09/11/20 10/06/20 History Gabapentin [Neurontin] 200 mg PO BID 09/11/20 10/06/20 History Hydrocortisone Pr Cream 1 applic RECTAL TID@0500,1300,2100 09/11/20 10/06/20 History [Proctosol-Hc 2.5%] Atorvastatin [Lipitor] 20 mg PO HS tab 09/20/20 10/06/20 Rx predniSONE 10 mg PO DAILY 30 Days #60 tab 09/20/20 10/06/20 Rx ALPRAZolam [Xanax] 0.25 mg PO Q8H PRN 10/06/20 10/06/20 History Alendronate Sodium [Fosamax] 70 mg PO WE@0600 10/06/20 10/06/20 History Aspirin 81 mg PO DAILY 10/06/20 10/06/20 History Famotidine [Pepcid] 20 mg PO BID@0900,1700 10/06/20 10/06/20 History Hydrocortisone Suppository 25 mg RECTAL Q12H PRN 10/06/20 10/06/20 History [Anusol-Hc] Lidocaine [Lidocaine 5% Rectal 1 applic RECTAL DAILY PRN 10/06/20 10/06/20 History Cream] Magnesium Hydroxide [Milk of 7,200 mg PO DAILY PRN 10/06/20 10/06/20 History Magnesia Concentrate] Meclizine [Antivert] 12.5 mg PO TID@0900,1300,2100 10/06/20 10/06/20 History Ondansetron HCl [Zofran] 4 mg PO Q8H PRN 10/06/20 10/06/20 History Sennosides-Docusate Sodium 1 tab PO DAILY@1300 10/06/20 10/06/20 History [Senokot-S] bisacodyL [Bisacodyl] 10 mg RECTAL DAILY PRN 10/06/20 10/06/20 History polyethylene glycoL 3350 [Miralax] 17 gm PO DAILY PRN 10/06/20 10/06/20 History traMADol HCL 50 mg PO Q6H PRN 10/06/20 10/06/20 History HYDROcodone/APAP 7.5-325MG [[place] 1 each PO Q6H PRN tab 10/12/20 Rx 7.5-325] Hydrocortisone Suppository 25 mg RECTAL BID 7 Days #14 supp 10/12/20 Rx [Anusol-Hc] Morphine Sulfate ER [Ms Contin] 15 mg PO HS tablet 10/12/20 Rx Allergies Allergy/AdvReac Type Severity Reaction Status Date / Time clindamycin HCl Allergy Rash/Hives Verified 10/06/20 20:29 [From Cleocin] clindamycin palmitate HCl Allergy Rash/Hives Verified 10/06/20 20:29 [From Cleocin] clindamycin phosphate Allergy Rash/Hives Verified 10/06/20 20:29 [From Cleocin] latex Allergy Rash/Hives Verified 10/06/20 20:29 Surgical - Exam Vital Signs Temp Pulse Resp BP Pulse Ox 98.3 F 74 18 120/62 92 L 10/06/20 20:00 10/06/20 20:00 10/06/20 20:00 10/06/20 20:00 10/06/20 20:00 - General well developed, well nourished, no distress - Eyes PERRL, normal ocular movement - Respiratory normal expansion, normal respiratory effort - Abdomen Abdomen: soft, non tender - Psychiatric oriented to time, oriented to person, oriented to place Results - Labs 10/14/20 07:19 10/14/20 07:19 Abnormal Lab Results - Last 24 Hours (Table) 10/14/20 10/14/20 Range/Units 07:19 07:19 RBC 3.66 L (3.80-5.40) m/uL Hgb 10.2 L (11.4-16.0) gm/dL MCHC 29.6 L (31.0-37.0) g/dL RDW 19.5 H (11.5-15.5) % Chloride 95 L (96-109) mmol/L Anion Gap 12.20 H (4.00-12.00) mmol/L BUN 8.0 L (9.0-27.0) mg/dL Creatinine 0.3 L (0.6-1.5) mg/dL BUN/Creatinine Ratio 26.67 H (12.00-20.00) Ratio Glucose 111 H (70-110) mg/dL Total Protein 4.7 L (6.2-8.2) g/dL Albumin 3.30 L (3.80-4.90) g/dL Globulin 1.4 L (1.6-3.3) g/dL Diabetes panel 10/14/20 Range/Units 07:19 Sodium 136 (135-145) mmol/L Potassium 4.3 (3.5-5.5) mmol/L Chloride 95 L (96-109) mmol/L Carbon Dioxide 28.8 (21.6-31.8) mmol/L BUN 8.0 L (9.0-27.0) mg/dL Creatinine 0.3 L (0.6-1.5) mg/dL Glucose 111 H (70-110) mg/dL Calcium 8.9 (8.7-10.3) mg/dL AST 18 (13-35) U/L ALT 13 (8-44) U/L Alkaline Phosphatase 71 (41-126) U/L Total Protein 4.7 L (6.2-8.2) g/dL Albumin 3.30 L (3.80-4.90) g/dL Calcium panel 10/14/20 Range/Units 07:19 Calcium 8.9 (8.7-10.3) mg/dL Albumin 3.30 L (3.80-4.90) g/dL Pituitary panel 10/14/20 Range/Units 07:19 Sodium 136 (135-145) mmol/L Potassium 4.3 (3.5-5.5) mmol/L Chloride 95 L (96-109) mmol/L Carbon Dioxide 28.8 (21.6-31.8) mmol/L BUN 8.0 L (9.0-27.0) mg/dL Creatinine 0.3 L (0.6-1.5) mg/dL Glucose 111 H (70-110) mg/dL Calcium 8.9 (8.7-10.3) mg/dL Adrenal panel 10/14/20 Range/Units 07:19 Sodium 136 (135-145) mmol/L Potassium 4.3 (3.5-5.5) mmol/L Chloride 95 L (96-109) mmol/L Carbon Dioxide 28.8 (21.6-31.8) mmol/L BUN 8.0 L (9.0-27.0) mg/dL Creatinine 0.3 L (0.6-1.5) mg/dL Glucose 111 H (70-110) mg/dL Calcium 8.9 (8.7-10.3) mg/dL Total Bilirubin 0.3 (0.3-1.2) mg/dL AST 18 (13-35) U/L ALT 13 (8-44) U/L Alkaline Phosphatase 71 (41-126) U/L Total Protein 4.7 L (6.2-8.2) g/dL Albumin 3.30 L (3.80-4.90) g/dL Assessment and Plan Assessment: 75-year-old female admitted to the hospital with thrombosed external hemorrhoid, C. diff infection. Also discussed urinary retention. Her PVR was 600 mL. No previous history of retention. Her urinary retention is likely secondary to her constipation, and recent procedure for her thrombosed hemorrhoid. Plan: -Keep catheter in place for a week, can follow-up as an outpatient for trial of void
[2020-10-14] MEDS: MELATONIN 5 MG TABLET PO SCH (20:00)
[2020-10-14] MEDS: ASCORBIC ACID 500 MG TAB PO SCH (20:00)
[2020-10-14] MEDS: CHOLECALCIFEROL 1,000 UNIT TAB PO SCH (20:00)
[2020-10-14] MEDS: ALPRAZolam 0.25 MG TAB PO PRN (20:00)
[2020-10-14] MEDS: ATORVASTATIN 20 MG TAB PO SCH (20:01)
[2020-10-14] MEDS: MORPHINE SULFATE ER 15 MG TABLET PO SCH (20:01)
[2020-10-15] MEDS: SODIUM CHLORIDE 0.9% 1,000 ML IV SCH ×2 (04:47→13:30)
[2020-10-15] MEDS: traMADol 50 MG TAB PO SCH ×2 (05:48→12:57)
[2020-10-15] MEDS: HYDROCORTISONE 2.5% RECTAL CREAM 30 GM TUBE RECTAL SCH (05:57)
[2020-10-15 07:22] LABS: Anisocytosis Slight; Basophils # (A) 0.1 k/uL (0-0.2); Basophils % (A) 1 %; Eosinophils # (A) 0.2 k/uL (0-0.7); Eosinophils % (A) 2 %; HCT 35.7 % (34.0-46.0); HGB 10.6 gm/dL (11.4-16.0); Hypochromasia Marked; Lymphocytes # (A) 1.5 k/uL (1.0-4.8); Lymphocytes % (A) 18 %; MCH 28.1 pg (25.0-35.0); MCHC 29.7 g/dL (31.0-37.0); MCV 94.5 fL (80.0-100.0); Macrocytosis Slight; Mean Platelet Volume 7.4; Monocytes # (A) 0.8 k/uL (0-1.0); Monocytes % (A) 10 %; Neutrophils # (A) 5.4 k/uL (1.3-7.7); Neutrophils % (A) 66 %; Platelet Count 463 k/uL (150-450); RBC 3.78 m/uL (3.80-5.40); RDW 19.6 % (11.5-15.5); WBC 8.2 k/uL (3.8-10.6)
[2020-10-15 07:50] VITALS: BP 114/70; PULSE 77; RESP 17; TEMP 97.8
[2020-10-15] MEDS: FAMOTIDINE 20 MG TAB PO SCH (08:14)
[2020-10-15] MEDS: ASPIRIN 81 MG PO SCH (08:14)
[2020-10-15] MEDS: NIFEdipine XL 30 MG TAB.ER.24 PO SCH (08:14)
[2020-10-15] MEDS: METOPROLOL TARTRATE 12.5 MG TAB PO SCH (08:14)
[2020-10-15] MEDS: GABAPENTIN 100 MG CAP PO SCH (08:14)
[2020-10-15] MEDS: MECLIZINE 12.5 MG TAB PO SCH (08:14)
[2020-10-15] MEDS: HYDROCORTISONE SUPPOSITORY 25 MG SUPP RECTAL SCH (08:14)
[2020-10-15] MEDS: MELOXICAM 7.5 MG TAB PO SCH (08:15)
[2020-10-15 12:31] LABS: African American GFR (CKD) 128.9 (60.0-200.0); Albumin 3.2 g/dL (3.80-4.90); Albumin/Globulin Ratio 2.13 (1.60-3.17); Anion Gap 4.8 mmol/L (4.00-12.00); BUN/Creat Ratio 23.33 Ratio (12.00-20.00); Calcium 8.9 mg/dL (8.7-10.3); Carbon Dioxide 31.2 mmol/L (21.6-31.8); Globulin 1.5 g/dL (1.6-3.3); Non-African American GFR(CKD) 111.2 (60.0-200.0); Potassium 4.3 mmol/L (3.5-5.5); Total Bilirubin 0.3 mg/dL (0.2-1.2); Total Protein 4.7 g/dL (6.2-8.2)
--- NOTE | 2020-10-15 13:04 | P.PN ---
Subjective Progress Note Date: 10/15/20 CHIEF COMPLAINT: Hemorrhoids HISTORY OF PRESENT ILLNESS: The patient is a 75-year-old female presented with thrombosed hemorrhoids. She status post I&D of thrombosed hemorrhoids. She now has C. diff colitis. She has less diarrhea. She is tolerating regular diet. ROS: No fevers or chills. No new chest pain. No productive sputum PHYSICAL EXAM: VITAL SIGNS: Reviewed CONSTITUTIONAL: Well developed and in no acute distress. EYES: Conjuctivae without sclera icterus. Extraocular movements grossly intact. HEAD, EARS, NOSE, THROAT: Moist buccal mucosa. Head is atraumatic, normocephalic. Hears conversational speech. No nasal drainage. NECK: Supple. No thyroidomegaly. RESPIRATORY: Non-labored respirations and equal bilateral excursions. CARDIOVASCULAR: Palpable 2+ radial pulses. Regular rate. Regular rhythm. ABDOMEN: No peritonitis MUSCULOSKELETAL: No gross deformity of the lower extremities noted. No clubbing. No cyanosis. SKIN: Good skin turgor. Well perfused. NEUROLOGIC: Cranial nerves II through XII grossly intact. No focal or lateralizing signs. PSYCH: Appropriate affect. Alert and oriented to person, place and time. CLINICAL LABS: White blood cell count normal at 8.2. ASSESSMENT: 1. Thrombosed hemorrhoid 2. C. difficile colitis PLAN: 1. Diet as tolerated 2. Recommend antibiotics for CDiff Objective - Vital Signs Vital signs: Vital Signs Temp 97.8 F 10/15/20 07:50 Pulse 77 10/15/20 07:50 Resp 17 10/15/20 07:50 BP 114/70 10/15/20 07:50 Pulse Ox 96 10/15/20 07:50 Intake & Output 10/14/20 10/15/20 10/15/20 18:59 06:59 18:59 Output Total 625 275 Balance -625 -275 Output: Urine 625 275 Other: Voiding Method Indwelling Catheter Indwelling Catheter Indwelling Catheter # Bowel Movements 1 - Labs CBC & Chem 7: 10/15/20 06:46 10/15/20 06:46 Labs: Abnormal Lab Results - Last 24 Hours (Table) 10/14/20 10/15/20 Range/Units 07:19 06:46 RBC 3.78 L (3.80-5.40) m/uL Hgb 10.6 L (11.4-16.0) gm/dL MCHC 29.7 L (31.0-37.0) g/dL RDW 19.6 H (11.5-15.5) % Plt Count 463 H (150-450) k/uL Chloride 95 L (96-109) mmol/L Anion Gap 12.20 H (4.00-12.00) mmol/L BUN 8.0 L (9.0-27.0) mg/dL Creatinine 0.3 L (0.6-1.5) mg/dL BUN/Creatinine Ratio 26.67 H (12.00-20.00) Ratio Glucose 111 H (70-110) mg/dL Total Protein 4.7 L (6.2-8.2) g/dL Albumin 3.30 L (3.80-4.90) g/dL Globulin 1.4 L (1.6-3.3) g/dL Assessment and Plan (1) Morbid obesity with BMI of 45.0-49.9, adult Current Visit: Yes Status: Acute Code(s): E66.01 - MORBID (SEVERE) OBESITY DUE TO EXCESS CALORIES; Z68.42 - BODY MASS INDEX [BMI] 45.0-49.9, ADULT SNOMED Code(s): 149198891 (2) Clostridioides difficile infection Current Visit: Yes Status: Acute Code(s): A49.8 - OTHER BACTERIAL INFECTIONS OF UNSPECIFIED SITE SNOMED Code(s): 294635729 (3) External hemorrhoid, thrombosed Current Visit: Yes Status: Acute Code(s): K64.5 - PERIANAL VENOUS THROMBOSIS SNOMED Code(s): 73192507
--- NOTE | 2020-10-15 14:20 | P.DS ---
Providers Date of admission: 10/06/20 19:35 Expected date of discharge: 10/15/20 Attending physician: Akbar Swenson Consults: 10/07/20 15:10 Consult Physician Urgent Consulting Provider: Andrade Alatorre Consult Reason/Comments: hemorrhoid pain, thrombosed external hemorrhoid Do you want consulting provider notified?: Yes 10/13/20 17:33 Consult Physician Routine Consulting Provider: Rafat Varela Consult Reason/Comments: urinary retention Do you want consulting provider notified?: Yes Primary care physician: Stated None Hospital Course: Diagnosis on discharge: 1. Rectal pain, with evidence of proctitis on computed tomography scan done at [facility]. Status post incision and drainage of thrombosed external hemorrhoid on 10/07/2020 2. Possible C. diff colitis, testing at [facility] revealed positive antigen but negative toxin for C. diff, at this time will continue with oral vancomycin and recheck C. diff toxin. C. diff negative on 10/07/2020 3. Recent prolonged admission for Covid 19 pneumonia, patient is still requiring oxygen supplements. 4. Underlying history of scleroderma 5. Underlying history of pulmonary fibrosis 6. Underlying history of pulmonary hypertension 7. Generalized weakness with physical debility and gait disturbance, patient was admitted to [facility] for rehabilitation. 8. Urinary retention Panchal catheter inserted awaiting urology consultation Hospital course: Claribel acosta, is a 75 female who currently is a resident of [facility] for rehabilitation after a prolonged admission to [facility] for Covid 19 pneumonia, patient states that 3 days ago she started having pain in the rectal area with constant liquid stool incontinence she was having external hemorrhoids with severe pain, she was transferred to the [facility], she was evaluated there and had evidence of proctitis computed tomography scan of the abdomen and pelvis was done and revealed evidence of dilated rectum with evidence of inflammation stools for C. diff was positive for C. diff antigen but negative for C. diff toxin. She was transferred to [facility] for further evaluation and treatment. On arrival to [facility] vital examination revealed a temperature of 98.3 pulse 74 respiration 18 blood pressure 120/62 pulse ox 92% on 2 L nasal cannula, white blood count was 10.1 hemoglobin 11.2 platelet count 301 patient was admitted to medical floor, home medications were resumed, patient was continued on oral vancomycin that was started at [facility] she was also started on IV Solu-Medrol consultation for gastroenterology was initiated. On review of systems patient is alert and oriented 3 in no distress she is complaining mostly of pain in the rectal area otherwise she denies any significant complaints she stated that her breathing has improved significantly since her recent admission with Covid 19 pneumonia she is currently maintained on oxygen at 2 L via nasal cannula there is no fever or chills no headache or dizziness no chest pain no palpitation no cough no nausea or vomiting no abdominal pain she is still complaining of diarrhea no blood in the stools no burning with urination no frequency or urgency and no hematuria. There is no weakness or numbness in any of the extremities there is no change in vision speech or gait. On 10/08/2020 patient was seen and examined on the medical floor she is alert and oriented 3 in no apparent distress, she is complaining of severe pain in the rectal area there is no fever or chills no headache or dizziness no chest pain no shortness of breath no cough no nausea or vomiting no abdominal pain no diarrhea no burning with urination no frequency or urgency and no hematuria On 10/09/2020 patient is alert and oriented 3. Patient still having significant pain to rectal area. Patient denies chest pain or shortness of breath. Patient denies nausea vomiting or diarrhea. Patient denies any urinary burning or frequency. Status post incision and drainage of thrombosed external hemorrhoid per Dr. Alatorre. Patient remains on Flagyl and oral vancomycin. On 10/10/2020 patient was seen and examined on the medical floor she is alert and oriented in no apparent distress she is still complaining of pain in the rectal area otherwise she denies any complaints there is no fever or chills no headache or dizziness no chest pain no shortness of breath no cough no nausea or vomiting no abdominal pain no diarrhea and no urinary symptoms. On 10/11/2020 patient is alert and oriented 3. Patient still having significant pain to rectal area. There is no fever or chills no headache or dizziness no chest pain no shortness of breath no cough no nausea or vomiting no abdominal pain no diarrhea and no urinary symptoms. Patient denies any urinary burning or frequency. Status post incision and drainage of thrombosed external hemorrhoid per Dr. Alatorre. Patient remains on Flagyl and oral vancomycin. On 10/12/2020 patient is alert and oriented 3. Patient still reporting significant pain to rectal area. Patient reports that she does not feel ready for discharge. We'll anticipate discharge for tomorrow. At this time patient denies chest pain or shortness of breath. Patient denies nausea vomiting or diarrhea. On 10/13/2020 patient was seen and examined on the medical floor she is alert and oriented 3 in no distress she is complaining of urinary retention, she had straight cath twice today she was retaining to 500 mL of urine in the bladder, she is still complaining of some rectal pain otherwise she denies any complaints there is no fever or chills no headache or dizziness no chest pain no shortness of breath no cough no nausea or vomiting no abdominal pain no diarrhea and no urinary symptoms On 10/14/2020 Patient was seen and examined on the medical floor she is alert and oriented 3 in no apparent distress, yesterday she had urine retention, she had straight catheterization 3 times then had a Panchal catheter inserted, urology consultation was requested, otherwise patient is still complaining of some pain in the rectal area she denies any other complaints there is no fever or chills no headache or dizziness no chest pain no shortness of breath no cough no nausea or vomiting no abdominal pain no diarrhea no blood in the stools, Panchal catheter is inserted for urinary retention. On 10/15/2020 patient was seen and examined on the medical floor she is alert and oriented 3 in no apparent distress there is no fever or chills no headache or dizziness no chest pain no shortness of breath no cough no nausea or vomiting no abdominal pain no diarrhea no blood in the stools no burning with urination no frequency or urgency no hematuria. Patient had urinary retention with high residual post void, she has a Panchal catheter inserted she was seen by urology and the recommendation is to keep Panchal catheter in for 1 week and to follow-up with urology in one week in the office. Patient is still having rectal pain, she is maintained on on Dickerson and morphine for pain she was given a prescription for morphine Dickerson for 3 days she was also given hydrocortisone suppositories, she will follow-up with her primary care physician Dr. Araujo in 3 days Plan - Discharge Summary Discharge Rx Participant: No New Discharge Prescriptions: New Hydrocortisone Suppository [Anusol-Hc] 25 mg RECTAL BID 7 Days #14 supp Morphine Sulfate ER [Ms Contin] 15 mg PO HS tablet HYDROcodone/APAP 7.5-325MG [[place] 7.5-325] 1 each PO Q6H PRN tab PRN Reason: Pain Continue NIFEdipine [Nifedical Xl] 30 mg PO BID Cholecalciferol [Vitamin D3 (25 Mcg = 1000 Iu)] 1,000 unit PO HS Acetaminophen [Tylenol Arthritis] 650 mg PO Q8H PRN PRN Reason: Fever And/ Or Pain Pseudoephedrine 12Hr [Sudafed 12 Hour] 120 mg PO Q12H PRN PRN Reason: Congestion Mycophenolate Mofetil [Cellcept] 500 mg PO TID@0500,1300,2100 traMADol HCL 50 mg PO Q6H Celecoxib [CeleBREX] 200 mg PO BID Metoprolol Tartrate [Lopressor] 12.5 mg PO BID tab Melatonin 5 mg PO HS tablet Ascorbic Acid [Vitamin C] 1,000 mg PO HS Gabapentin [Neurontin] 200 mg PO BID Hydrocortisone Pr Cream [Proctosol-Hc 2.5%] 1 applic RECTAL TID@0500,1300,2100 Atorvastatin [Lipitor] 20 mg PO HS tab predniSONE 10 mg PO DAILY 30 Days #60 tab ALPRAZolam [Xanax] 0.25 mg PO Q8H PRN PRN Reason: Anxiety traMADol HCL 50 mg PO Q6H PRN PRN Reason: Pain polyethylene glycoL 3350 [Miralax] 17 gm PO DAILY PRN PRN Reason: Constipation Magnesium Hydroxide [Milk of Magnesia Concentrate] 7,200 mg PO DAILY PRN PRN Reason: Constipation Lidocaine [Lidocaine 5% Rectal Cream] 1 applic RECTAL DAILY PRN PRN Reason: Hemorrhoids bisacodyL [Bisacodyl] 10 mg RECTAL DAILY PRN PRN Reason: Constipation Hydrocortisone Suppository [Anusol-Hc] 25 mg RECTAL Q12H PRN PRN Reason: Hemorrhoids Alendronate Sodium [Fosamax] 70 mg PO WE@0600 Meclizine [Antivert] 12.5 mg PO TID@0900,1300,2100 Famotidine [Pepcid] 20 mg PO BID@0900,1700 Sennosides-Docusate Sodium [Senokot-S] 1 tab PO DAILY@1300 Ondansetron HCl [Zofran] 4 mg PO Q8H PRN PRN Reason: Nausea Aspirin 81 mg PO DAILY Discontinued Nitrofurantoin Monohyd/M-Cryst [Macrobid] 100 mg PO BID@0900,1700 Discharge Medication List NIFEdipine [Nifedical Xl] 30 mg PO BID 06/28/15 [History] Acetaminophen [Tylenol Arthritis] 650 mg PO Q8H PRN 08/27/20 [History] Cholecalciferol [Vitamin D3 (25 Mcg = 1000 Iu)] 1,000 unit PO HS 08/27/20 [Hi story] Mycophenolate Mofetil [Cellcept] 500 mg PO TID@0500,1300,2100 08/27/20 [History] Pseudoephedrine 12Hr [Sudafed 12 Hour] 120 mg PO Q12H PRN 08/27/20 [History] traMADol HCL 50 mg PO Q6H 08/27/20 [History] Celecoxib [CeleBREX] 200 mg PO BID 08/29/20 [History] Melatonin 5 mg PO HS tablet 09/10/20 [Rx] Metoprolol Tartrate [Lopressor] 12.5 mg PO BID tab 09/10/20 [Rx] Ascorbic Acid [Vitamin C] 1,000 mg PO HS 09/11/20 [History] Gabapentin [Neurontin] 200 mg PO BID 09/11/20 [History] Hydrocortisone Pr Cream [Proctosol-Hc 2.5%] 1 applic RECTAL TID@0500,1300,2100 09/11/20 [History] Atorvastatin [Lipitor] 20 mg PO HS tab 09/20/20 [Rx] predniSONE 10 mg PO DAILY 30 Days #60 tab 09/20/20 [Rx] ALPRAZolam [Xanax] 0.25 mg PO Q8H PRN 10/06/20 [History] Alendronate Sodium [Fosamax] 70 mg PO WE@0600 10/06/20 [History] Aspirin 81 mg PO DAILY 10/06/20 [History] Famotidine [Pepcid] 20 mg PO BID@0900,1700 10/06/20 [History] Hydrocortisone Suppository [Anusol-Hc] 25 mg RECTAL Q12H PRN 10/06/20 [History] Lidocaine [Lidocaine 5% Rectal Cream] 1 applic RECTAL DAILY PRN 10/06/20 [History] Magnesium Hydroxide [Milk of Magnesia Concentrate] 7,200 mg PO DAILY PRN 10/06/20 [History] Meclizine [Antivert] 12.5 mg PO TID@0900,1300,2100 10/06/20 [History] Ondansetron HCl [Zofran] 4 mg PO Q8H PRN 10/06/20 [History] Sennosides-Docusate Sodium [Senokot-S] 1 tab PO DAILY@1300 10/06/20 [History] bisacodyL [Bisacodyl] 10 mg RECTAL DAILY PRN 10/06/20 [History] polyethylene glycoL 3350 [Miralax] 17 gm PO DAILY PRN 10/06/20 [History] traMADol HCL 50 mg PO Q6H PRN 10/06/20 [History] HYDROcodone/APAP 7.5-325MG [[place] 7.5-325] 1 each PO Q6H PRN tab 10/12/20 [Rx] Hydrocortisone Suppository [Anusol-Hc] 25 mg RECTAL BID 7 Days #14 supp 10/12/20 [Rx] Morphine Sulfate ER [Ms Contin] 15 mg PO HS tablet 10/12/20 [Rx] Follow up Appointment(s)/Referral(s): Kenneth Camejo MD [STAFF PHYSICIAN] - 1 Week [facility] [NON-STAFF] - As Needed Andrade Alatorre MD [STAFF PHYSICIAN] - 1 Week
== END 2020-10-15 14:47 | disposition home health service (06) | DRG 345 ==
LOC: 4SSUR 19:35
PROVIDERS: ADMIT Internal Medicine; ATTEND Internal Medicine
PROC: 0D9P0ZZ Drainage of Rectum, Open Approach (ICD-10-PCS; principal; 2020-10-08)
DX: K64.5 Perianal venous thrombosis (principal); A04.72 Enterocolitis due to Clostridium difficile, not specified as recurrent; Z68.42 Body mass index [BMI] 45.0-49.9, adult; E66.01 Morbid (severe) obesity due to excess calories; E78.00 Pure hypercholesterolemia, unspecified; I10 Essential (primary) hypertension; I27.20 Pulmonary hypertension, unspecified; I73.00 Raynaud's syndrome without gangrene; J98.8 Other specified respiratory disorders; B94.8 Sequelae of other specified infectious and parasitic diseases; Z87.01 Personal history of pneumonia (recurrent); M34.9 Systemic sclerosis, unspecified; K62.89 Other specified diseases of anus and rectum; J84.10 Pulmonary fibrosis, unspecified; K56.41 Fecal impaction; Z79.1 Long term (current) use of non-steroidal anti-inflammatories (NSAID); Z79.82 Long term (current) use of aspirin; Z79.83 Long term (current) use of bisphosphonates; Z79.899 Other long term (current) drug therapy; Z79.891 Long term (current) use of opiate analgesic; Z82.5 Family history of asthma and other chronic lower respiratory diseases; Z82.49 Family history of ischemic heart disease and other diseases of the circulatory system; Z82.0 Family history of epilepsy and other diseases of the nervous system; M19.90 Unspecified osteoarthritis, unspecified site; Z88.1 Allergy status to other antibiotic agents; Z91.040 Latex allergy status; R33.9 Retention of urine, unspecified; R26.9 Unspecified abnormalities of gait and mobility
CPT/HCPCS: 71045; 80048; 80053; 85025; 87324

== ENCOUNTER 2020-10-16 17:24 | Inpatient (IN) | payer MEDICARE ==
--- NOTE | 2020-10-16 17:54 | ED ---
SOB HPI - General Stated Complaint: weakness Time Seen by Provider: 10/16/20 17:26 - History of Present Illness Initial Comments: This patient is a 75-year-old woman who arrives here as a transfer from [facility]. The patient states she had gone there this afternoon because she was feeling short of breath. In addition, the patient states a visiting nurse had checked her today and found her pulse oximetry was low. Per report the patient's pulse ox numbers at home were 76%. At the other hospital, was reported that they did try weaning her from supplemental oxygen and her pulse oximetry readings would go down to the mid 80s. From the other hospital, they perform chest x-ray which reportedly showed bilateral pneumonia, , the patient also had fever there, and these gave her a dose of cefepime. When I interview the patient here, she is currently not having any dyspnea. Patient denies other symptoms. MD Complaint: shortness of breath Onset/Timin -: days(s) Severity scale (1-10): 0 Consistency: constant Improves With: oxygen Worsens With: nothing Known History Of: other (Recent coronavirus infection) Associated Symptoms: denies other symptoms Treatments Prior to Arrival: oxygen - Related Data Home Oxygen Therapy: No Home Medications Medication Instructions Recorded Confirmed NIFEdipine [Nifedical Xl] 30 mg PO BID 06/28/15 10/06/20 Acetaminophen [Tylenol Arthritis] 650 mg PO Q8H PRN 08/27/20 10/06/20 Cholecalciferol [Vitamin D3 (25 1,000 unit PO HS 08/27/20 10/06/20 Mcg = 1000 Iu)] Mycophenolate Mofetil [Cellcept] 500 mg PO TID@0500,1300,2100 08/27/20 10/06/20 Pseudoephedrine 12Hr [Sudafed 12 120 mg PO Q12H PRN 08/27/20 10/06/20 Hour] traMADol HCL 50 mg PO Q6H 08/27/20 10/06/20 Celecoxib [CeleBREX] 200 mg PO BID 08/29/20 10/06/20 Ascorbic Acid [Vitamin C] 1,000 mg PO HS 09/11/20 10/06/20 Gabapentin [Neurontin] 200 mg PO BID 09/11/20 10/06/20 Hydrocortisone Pr Cream 1 applic RECTAL TID@0500,1300,2100 09/11/20 10/06/20 [Proctosol-Hc 2.5%] ALPRAZolam [Xanax] 0.25 mg PO Q8H PRN 10/06/20 10/06/20 Alendronate Sodium [Fosamax] 70 mg PO WE@0600 10/06/20 10/06/20 Aspirin 81 mg PO DAILY 10/06/20 10/06/20 Famotidine [Pepcid] 20 mg PO BID@0900,1700 10/06/20 10/06/20 Hydrocortisone Suppository 25 mg RECTAL Q12H PRN 10/06/20 10/06/20 [Anusol-Hc] Lidocaine [Lidocaine 5% Rectal 1 applic RECTAL DAILY PRN 10/06/20 10/06/20 Cream] Magnesium Hydroxide [Milk of 7,200 mg PO DAILY PRN 10/06/20 10/06/20 Magnesia Concentrate] Meclizine [Antivert] 12.5 mg PO TID@0900,1300,2100 10/06/20 10/06/20 Ondansetron HCl [Zofran] 4 mg PO Q8H PRN 10/06/20 10/06/20 Sennosides-Docusate Sodium 1 tab PO DAILY@1300 10/06/20 10/06/20 [Senokot-S] bisacodyL [Bisacodyl] 10 mg RECTAL DAILY PRN 10/06/20 10/06/20 polyethylene glycoL 3350 [Miralax] 17 gm PO DAILY PRN 10/06/20 10/06/20 traMADol HCL 50 mg PO Q6H PRN 10/06/20 10/06/20 Previous Rx's Medication Instructions Recorded Melatonin 5 mg PO HS tablet 09/10/20 Metoprolol Tartrate [Lopressor] 12.5 mg PO BID tab 09/10/20 Atorvastatin [Lipitor] 20 mg PO HS tab 09/20/20 predniSONE 10 mg PO DAILY 30 Days #60 tab 09/20/20 HYDROcodone/APAP 7.5-325MG [[place] 1 each PO Q6H PRN tab 10/12/20 7.5-325] Hydrocortisone Suppository 25 mg RECTAL BID 7 Days #14 supp 10/12/20 [Anusol-Hc] Morphine Sulfate ER [Ms Contin] 15 mg PO HS tablet 10/12/20 Allergies Allergy/AdvReac Type Severity Reaction Status Date / Time clindamycin HCl Allergy Rash/Hives Verified 10/06/20 20:29 [From Cleocin] clindamycin palmitate HCl Allergy Rash/Hives Verified 10/06/20 20:29 [From Cleocin] clindamycin phosphate Allergy Rash/Hives Verified 10/06/20 20:29 [From Cleocin] latex Allergy Rash/Hives Verified 10/06/20 20:29 Review of Systems ROS Statement: Those systems with pertinent positive or pertinent negative responses have been documented in the HPI. ROS Other: All systems not noted in ROS Statement are negative. Constitutional: Reports: fever, weakness Respiratory: Reports: dyspnea. Denies: cough, wheezes, hemoptysis Cardiovascular: Denies: chest pain, palpitations, edema, syncope Gastrointestinal: Reports: diarrhea. Denies: abdominal pain, nausea, vomiting, melena, hematochezia Genitourinary: Reports: other (Patient has indwelling catheter). 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 Does NOT want to ever return there. Spouse was admitted to [facility] in [place] with [facility]. Pt last spoke to him 09/09 and currently doesnt know his status or whereabouts. Smoking Status: Never smoker Past Alcohol Use History: None Reported Past Drug Use History: None Reported - Past Family History Mother Family Medical History: Dementia, Hypertension Additional Family Medical History / Comment(s): Lived until 102 Father Family Medical History: COPD Additional Family Medical History / Comment(s): in his late 60's from emphysema General Exam General appearance: alert, in no apparent distress Head exam: Present: atraumatic, normocephalic Eye exam: Present: normal appearance. Absent: scleral icterus, conjunctival injection ENT exam: Present: normal oropharynx Neck exam: Present: normal inspection Respiratory exam: Present: rales (Scattered crackles bilateral). Absent: normal lung sounds bilaterally, respiratory distress, wheezes, rhonchi, stridor, chest wall tenderness, accessory muscle use, decreased breath sounds, prolonged expiratory Cardiovascular Exam: Present: regular rate, normal rhythm, normal heart sounds. Absent: systolic murmur, diastolic murmur, rubs, gallop GI/Abdominal exam: Present: soft. Absent: distended, tenderness, guarding, rebound, rigid Extremities exam: Present: normal inspection, normal capillary refill. Absent: pedal edema, calf tenderness Back exam: Present: normal inspection. Absent: CVA tenderness (R), CVA tenderness (L) Neurological exam: Present: alert Skin exam: Present: warm, dry, intact, normal color. Absent: rash Course Vital Signs 10/16/20 17:30 Temperature 98.9 F Pulse Rate 100 Respiratory 20 Rate Blood Pressure 131/71 O2 Sat by Pulse 98 Oximetry Disposition Clinical Impression: COVID-19, Hypoxia Disposition: ADMITTED IP TO THIS HOSP Condition: Fair Is patient prescribed a controlled substance at d/c from ED?: No Referrals: Darcy Araujo MD [Primary Care Provider] - 1-2 days
[2020-10-16] MEDS ORDERED: NALOXONE 0.4 MG/ML 1 ML VIAL IV PRN (18:12)
[2020-10-16] MEDS ORDERED: ACETAMINOPHEN TAB 325 MG TAB PO PRN (18:12)
[2020-10-16] MEDS ORDERED: bisacodyL 10 MG SUPP RECTAL PRN (18:14)
[2020-10-16] MEDS ORDERED: ONDANSETRON 4 MG TAB PO PRN (18:14)
[2020-10-16] MEDS ORDERED: traMADol 50 MG TAB PO PRN (18:14)
[2020-10-16] MEDS ORDERED: MAGNESIUM HYDROXIDE 2,400 MG/10 ML CUP PO PRN (18:14)
[2020-10-16] MEDS ORDERED: polyethylene glycoL 3350 17 GM POWD.PACK PO PRN (18:14)
[2020-10-16] MEDS: GABAPENTIN 100 MG CAP PO SCH (20:55)
[2020-10-16] MEDS: HEPARIN SODIUM,PORCINE 5,000 UNIT/ML 1 ML VIAL SQ SCH (20:55)
[2020-10-16] MEDS: SODIUM CHLORIDE 0.9% 1,000 ML IV SCH (20:55)
[2020-10-16] MEDS: MORPHINE SULFATE ER 15 MG TABLET PO SCH (20:56)
[2020-10-16] MEDS: MELATONIN 5 MG TABLET PO SCH (20:56)
[2020-10-16] MEDS: ATORVASTATIN 20 MG TAB PO SCH (20:56)
[2020-10-16] MEDS: MECLIZINE 12.5 MG TAB PO SCH (20:56)
[2020-10-16] MEDS: NIFEdipine XL 30 MG TAB.ER.24 PO SCH (20:56)
[2020-10-16] MEDS: METOPROLOL TARTRATE 12.5 MG TAB PO SCH (20:56)
[2020-10-16] MEDS: HYDROcodone/APAP 7.5-325MG 1 EACH TAB PO PRN (22:50)
[2020-10-16] MEDS: ALPRAZolam 0.25 MG TAB PO PRN (22:50)
[2020-10-17] MEDS: HYDROcodone/APAP 7.5-325MG 1 EACH TAB PO PRN ×3 (04:57→16:50)
[2020-10-17] MEDS: FAMOTIDINE 20 MG TAB PO SCH ×2 (07:06→16:50)
[2020-10-17] MEDS: GABAPENTIN 100 MG CAP PO SCH ×2 (07:07→22:03)
[2020-10-17] MEDS: METOPROLOL TARTRATE 12.5 MG TAB PO SCH ×2 (07:07→22:03)
[2020-10-17] MEDS: DEXAMETHASONE SOD PHOSPHATE 10 MG/ML 1 ML VIAL IV SCH (07:07)
[2020-10-17] MEDS: ASPIRIN 81 MG PO SCH (07:07)
[2020-10-17] MEDS: HEPARIN SODIUM,PORCINE 5,000 UNIT/ML 1 ML VIAL SQ SCH ×2 (07:08→22:06)
[2020-10-17] MEDS: NIFEdipine XL 30 MG TAB.ER.24 PO SCH ×2 (07:08→22:05)
[2020-10-17] MEDS: MECLIZINE 12.5 MG TAB PO SCH ×3 (07:08→22:05)
[2020-10-17] MEDS: ALPRAZolam 0.25 MG TAB PO PRN (10:19)
[2020-10-17 11:17] LABS: ALT 19 U/L (4-34); AST 26 U/L (14-36); African American GFR (CKD) >90 (>60 ml/min/1.73 sqM); Albumin 3.3 g/dL (3.5-5.0); Albumin/Globulin Ratio 1.4; Alkaline Phosphatase 72 U/L (38-126); Anion Gap 9 mmol/L; Blood Urea Nitrogen 12 mg/dL (7-17); Calcium 8.5 mg/dL (8.4-10.2); Carbon Dioxide 26 mmol/L (22-30); Chloride 104 mmol/L (98-107); Globulin 2.4 g/dL; Glucose 106 mg/dL (74-99); Non-African American GFR(CKD) >90 (>60 ml/min/1.73 sqM); Potassium 4.4 mmol/L (3.5-5.1); Sodium 139 mmol/L (137-145); Total Bilirubin 0.6 mg/dL (0.2-1.3); Total Protein 5.7 g/dL (6.3-8.2)
[2020-10-17 11:19] LABS: Anisocytosis Slight; Basophils # (A) 0.1 k/uL (0-0.2); Basophils % (A) 1 %; Eosinophils # (A) 0.1 k/uL (0-0.7); Eosinophils % (A) 1 %; HCT 39.1 % (34.0-46.0); HGB 11.7 gm/dL (11.4-16.0); Hypochromasia Marked; Lymphocytes # (A) 0.5 k/uL (1.0-4.8); Lymphocytes % (A) 5 %; MCH 29.1 pg (25.0-35.0); MCV 96.9 fL (80.0-100.0); Macrocytosis Slight; Mean Platelet Volume 7.1; Monocytes # (A) 0.3 k/uL (0-1.0); Monocytes % (A) 3 %; Neutrophils # (A) 9.1 k/uL (1.3-7.7); Neutrophils % (A) 89 %; Platelet Count 479 k/uL (150-450); RBC 4.03 m/uL (3.80-5.40); RDW 19.9 % (11.5-15.5); WBC 10.2 k/uL (3.8-10.6)
[2020-10-17] MEDS: SENNOSIDES-DOCUSATE SODIUM 1 EACH TAB PO SCH (12:15)
--- NOTE | 2020-10-17 14:16 | CT ---
EXAMINATION TYPE: CT angio chest DATE OF EXAM: 10/17/2020 1:39 PM COMPARISON: CTA chest September 11, [address] older [address]s. Outside chest x-ray yesterday and older outsid e x-rays. HISTORY: Shortness of breath. CT DLP: 327.4 mGycm Automated exposure control for dose reduction was used. CONTRAST: CTA scan of the thorax is performed with IV Contrast, patient injected with 100 mL of Isovue 370, pul monary embolism protocol. MIP images are created and reviewed. FINDINGS: LUNGS: New small bilateral pleural effusions. Background peripheral reticulation and fibrotic change in the mid to lower lungs redemonstrated but obscured by multifocal areas of groundglass opacity and intralobular septal thickening most prominent in the lower lungs. Some interval progression from Dece mb2019 CT noted. Areas of organizing consolidation bilaterally are present. No pneumothorax se en bilaterally. MEDIASTINUM: There is satisfactory enhancement of the pulmonary artery and its branches, there is no CT evidence for pulmonary embolism. There are no new greater than 1 cm hilar or mediastinal lymph no tom. Prominent prevascular lymph nodes axial image 53 and left hilar lymph nodes inferior posterior to this remain present. No pericardial effusion is seen. Persistent cardiomegaly. Persistent enlarge d main pulmonary artery consistent with underlying pulmonary hypertension. OTHER: S-shaped scoliosis. IMPRESSION: 1. Persistent covid 19 infection with interval progression from prior CT. Worsening lung opacities an d organizing consolidations in the lower lungs noted. 2. No CT evidence for acute pulmonary embolism. 3. Component of CHF exacerbation on background of number 1 And chronic basilar fibrotic changes is byers spected, correlate clinically.
[2020-10-17] MEDS: HYDROCORTISONE SUPPOSITORY 25 MG SUPP RECTAL PRN (14:39)
--- NOTE | 2020-10-17 15:33 | P.CNPUL ---
History of Present Illness Consult date: 10/17/20 Reason for consult: dyspnea History of present illness: 75-year-old female patient was transferred from [facility] because of worsening shortness of breath and worsening hypoxemia. The patient is known to me from previous hospitalization. The patient was being checked by visiting nurse and she was found to be quite hypoxic and the pulse ox was down to 76% at home. I'm not sure if she was wearing oxygen at that time or not. Based on that, she got transferred initially to [facility] and subsequently the patient was transferred to us for further care. No reported copy no significant sputum production. She has exertional dyspnea and sometimes dyspnea at rest. The patient's white cell count of 10.2. The patient's hemoglobin is 11.7. The patient continued to have some lymphopenia with a lymphocyte count of 0.5. D- dimer is 1.26. Creatinine is at 0.33. Inflammatory markers have not been obtained. At that point, and I compared it to the earlier CAT scan that was done on the same patient on 09/11/2020. The CAT scan showed satisfactory enhancement of the pulmonary arteries and there was no evidence of any pulmonary embolism. There was small bilateral pleural effusions that was new onset. There was some background reticular and fibrotic changes in the mid and lower lung torres bilaterally in addition to some areas of multifocal areas of groundglass opacity with interlobular septal thickening most prominent in the lower lobes. In comparison, there was some interval progression compared to 09/13/2020. There are areas of organizing consolidation bilaterally. No evidence of any pneumothorax. Note that the patient was diagnosed and treated for covid19 infection back in August 2020. At that time, the patient was requiring high flow oxygen. I think she was briefly placed on BiPAP. During the course of his treatment, the patient received convalescent plasma and she also received Remdesivir. The patient was also treated with steroids and ultimately she was discharged home. Note that the time of discharge, the patient was still having bilateral lower lobe pulmonary infiltrates/consol idation. She is known also to have scleroderma along with Raynaud's syndrome and hypertension. The echo of the heart shows no significant pulmonary hypertension. There is mild elevation of the PA pressure of 43. Left ventricle ejection fraction has been within normal limits. Note that following her discharge from the hospital, the patient was readmitted to the hospital for rectal pain with evidence of proctitis and she underwent a incision and drainage of a thrombosed external hemorrhoids. Review of Systems Constitutional: Reports fatigue, Reports lethargy Eyes: denies as per HPI, denies blurred vision, denies bulging eye, denies decreased vision, denies diplopia, denies discharge, denies dry eye, denies irritation, denies itching, denies pain, denies photophobia, denies loss of peripheral vision, denies loss of vision, denies tunnel vision/blind spots Ears: deny: decreased hearing, ear discharge, earache, tinnitus Ears, nose, mouth and throat: Denies headache, Denies sore throat Breasts: absent: as per HPI, change in shape, gynecomastia, masses, nipple discharge, pain, skin changes, swelling Cardiovascular: Reports decreased exercise tolerance, Reports dyspnea on exertion Respiratory: Reports dyspnea, Denies cough Gastrointestinal: Reports as per HPI Genitourinary: Reports as per HPI Menstruation: Reports as per HPI Musculoskeletal: Reports as per HPI Musculoskeletal: absent: ankle pain, ankle stiffness, ankle swelling Integumentary: Reports as per HPI Neurological: Reports as per HPI Psychiatric: Reports as per HPI Endocrine: Reports as per HPI Hematologic/Lymphatic: Reports as per HPI Allergic/Immunologic: Reports as per HPI 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 Does NOT want to ever return there. Spouse was admitted to [facility] in [place] with [facility]. Pt last spoke to him 09/09 and currently doesnt know his status or whereabouts. Smoking Status: Never smoker Past Alcohol Use History: None Reported Past Drug Use History: None Reported - Past Family History Mother Family Medical History: Dementia, Hypertension Additional Family Medical History / Comment(s): Lived until 102 Father Family Medical History: COPD Additional Family Medical History / Comment(s): in his late 60's from emphysema Medications and Allergies Home Medications Medication Instructions Recorded Confirmed Type NIFEdipine [Nifedical Xl] 30 mg PO BID 06/28/15 10/16/20 History Acetaminophen [Tylenol Arthritis] 650 mg PO Q8H PRN 08/27/20 10/16/20 History Cholecalciferol [Vitamin D3 (25 1,000 unit PO HS 08/27/20 10/16/20 History Mcg = 1000 Iu)] Mycophenolate Mofetil [Cellcept] 500 mg PO TID@0500,1300,2100 08/27/20 10/16/20 History Celecoxib [CeleBREX] 200 mg PO BID 08/29/20 10/16/20 History Melatonin 5 mg PO HS tablet 09/10/20 10/16/20 Rx Metoprolol Tartrate [Lopressor] 12.5 mg PO BID tab 09/10/20 10/16/20 Rx Ascorbic Acid [Vitamin C] 1,000 mg PO HS 09/11/20 10/16/20 History Gabapentin [Neurontin] 200 mg PO BID 09/11/20 10/16/20 History Atorvastatin [Lipitor] 20 mg PO HS tab 09/20/20 10/16/20 Rx predniSONE 10 mg PO DAILY 30 Days #60 tab 09/20/20 10/16/20 Rx ALPRAZolam [Xanax] 0.25 mg PO Q8H PRN 10/06/20 10/16/20 History Alendronate Sodium [Fosamax] 70 mg PO WE@0600 10/06/20 10/16/20 History Aspirin 81 mg PO DAILY 10/06/20 10/16/20 History Famotidine [Pepcid] 20 mg PO BID@0900,1700 10/06/20 10/16/20 History Meclizine [Antivert] 12.5 mg PO TID@0900,1300,2100 10/06/20 10/16/20 History Sennosides-Docusate Sodium 1 tab PO DAILY@1300 10/06/20 10/16/20 History [Senokot-S] Hydrocortisone Suppository 25 mg RECTAL BID 7 Days #14 supp 10/12/20 10/16/20 Rx [Anusol-Hc] Morphine Sulfate ER [Ms Contin] 15 mg PO HS tablet 10/12/20 10/16/20 Rx HYDROcodone/APAP 7.5-325MG [[place] 1 tab PO Q6H PRN 10/16/20 10/16/20 History 7.5-325] Allergies Allergy/AdvReac Type Severity Reaction Status Date / Time clindamycin HCl Allergy Rash/Hives Verified 10/16/20 18:30 [From Cleocin] clindamycin palmitate HCl Allergy Rash/Hives Verified 10/16/20 18:30 [From Cleocin] clindamycin phosphate Allergy Rash/Hives Verified 10/16/20 18:30 [From Cleocin] latex Allergy Rash/Hives Verified 10/16/20 18:30 Physical Exam Vitals: Vital Signs Temp Pulse Pulse Resp BP BP Pulse Ox 10/17/20 07:42 97.5 F L 79 19 104/62 96 10/17/20 07:15 19 10/17/20 05:04 97.6 F 90 16 128/70 91 L 10/17/20 03:12 97.6 F 86 16 122/69 94 L 10/16/20 21:55 98.2 F 66 18 118/69 95 10/16/20 20:46 66 18 10/16/20 19:36 98.6 F 99 20 136/78 97 10/16/20 18:30 97 10/16/20 17:40 20 10/16/20 17:30 98.9 F 100 20 131/71 98 Intake and Output 10/17/20 10/17/20 10/17/20 06:59 14:59 22:59 Output Total 825 Balance -825 Output: Urine 825 Other: # Bowel Movements 4 GENERAL EXAM: Alert, pleasant,frail 74-year-old female patient, on 3 liter of oxygen by nasal cannula, HEAD: Normocephalic. EYES: Normal reaction of pupils, equal size. NOSE: Clear with pink turbinates. THROAT: No erythema or exudates. NECK: No masses, no JVD. CHEST: No chest wall deformity. LUNGS: Equal air entry with basilar crackles, few scattered rhonchi, diminished CVS: S1 and S2 normal with no audible murmur, regular rhythm. ABDOMEN: No hepatosplenomegaly, normal bowel sounds, no guarding or rigidity. SPINE: No scoliosis or deformity SKIN: No rashes, skin changes consistent with scleroderma CENTRAL NERVOUS SYSTEM: No focal deficits, tone is normal in all 4 extremities. EXTREMITIES: There is no peripheral edema. No clubbing, no cyanosis. Peripheral pulses are intact. Results - Laboratory Findings CBC and BMP: 10/17/20 10:39 10/17/20 10:39 PT/INR, D-dimer D-Dimer 1.26 mg/L FEU (<0.60) H 10/17/20 10:52 Abnormal lab findings: Abnormal Labs 10/17/20 10/17/20 10/17/20 10:39 10:39 10:52 MCHC 30.0 L RDW 19.9 H Plt Count 479 H Neutrophils # 9.1 H Lymphocytes # 0.5 L D-Dimer 1.26 H Creatinine 0.33 L Glucose 106 H Total Protein 5.7 L Albumin 3.3 L - Diagnostic Findings Chest x-ray: image reviewed CT scan - chest: image reviewed Assessment and Plan Plan: 1 acute on chronic hypoxic respiratory failure. The patient was hospitalized in late July and August for acute hypoxic respiratory failure secondary to community related pneumonia. The patient clinically improved and the patient was discharged home with home oxygen. Her symptoms got worse since and the patient comes back to the hospital with oxygen 3 L per minute nasal cannula. CT angiogram showed no evidence of any pulmonary embolism. There is some worsening in the pulmonary infiltrates bilaterally. Consider superinfection. Consider progression of the prado virus19 inflammatory changes post weaning of the systemic steroids. Note that the patient has been chronically immunosuppressed with CellCept. The patient completed a prednisone burst taper at time of discharge from the hospital. For now, the patient is back on Decadron 6 mg IV every 24 hours. Outpatient medications of been all resumed. The CellCept was placed on hold. 2 systemic sclerosis maintained on CellCept and prednisone 3 chronic lower lobe pulmonary fibrosis 4 [id number] pulmonary hypertension, secondary nature 5long-term immunosuppression with a combination of CellCept and prednisone 6 hyperlipidemia 7 osteoarthritis Plan Restart Decadron 6 mg IV push Continue CellCept for now Check pro calcitonin level Check inflammatory markers Monitor oxygenation May consider bronchoscopy if there is any worsening in oxygenation or pulmonary status.
[2020-10-17] MEDS: SODIUM CHLORIDE 0.9% 1,000 ML IV SCH (16:51)
--- NOTE | 2020-10-17 18:40 | P.HPIM ---
History of Present Illness H&P Date: 10/17/20 Claribel Ruiz is a 75 -year-old female who presented to [facility] emergency room, as a transfer from [facility] emergency room with a chief complaint of worsening shortness of breath, patient was also seen by a visiting nurse at her home and her pulse ox was low at 76%, admitted [facility] her oxygen saturation was in the mid 80s, patient was also having low-grade fever, she had a chest x-ray at [facility] that showed bilateral pneumonia per report, patient was given a dose of cefepime and was transferred to [facility] emergency room. Patient was recently discharged from [facility] after being admitted for rectal pain, thrombosed external hemorrhoids with bedside procedure by Dr. Alatorre and questionable C. diff infection, patient had a positive antigen but negative toxin at [facility] prior to the previous admission, patient received oral vancomycin in that regard, she was discharged home she was home less than 48 hours before returning with worsening shortness of breath. Prior to that patient was admitted to [facility] with Covid 19 pneumonia she had a prolonged admission lasting for about 1 month, she was discharged on 09/20/2020. 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 Does NOT want to ever return there. Spouse was admitted to [facility] in [place] with covid. Pt last spoke to him 09/09 and currently doesnt know his status or whereabouts. Smoking Status: Never smoker Past Alcohol Use History: None Reported Past Drug Use History: None Reported - Past Family History Mother Family Medical History: Dementia, Hypertension Additional Family Medical History / Comment(s): Lived until 102 Father Family Medical History: COPD Additional Family Medical History / Comment(s): in his late 60's from emphysema Medications and Allergies Home Medications Medication Instructions Recorded Confirmed Type NIFEdipine [Nifedical Xl] 30 mg PO BID 06/28/15 10/16/20 History Acetaminophen [Tylenol Arthritis] 650 mg PO Q8H PRN 08/27/20 10/16/20 History Cholecalciferol [Vitamin D3 (25 1,000 unit PO HS 08/27/20 10/16/20 History Mcg = 1000 Iu)] Mycophenolate Mofetil [Cellcept] 500 mg PO TID@0500,1300,2100 08/27/20 10/16/20 History Celecoxib [CeleBREX] 200 mg PO BID 08/29/20 10/16/20 History Melatonin 5 mg PO HS tablet 09/10/20 10/16/20 Rx Metoprolol Tartrate [Lopressor] 12.5 mg PO BID tab 09/10/20 10/16/20 Rx Ascorbic Acid [Vitamin C] 1,000 mg PO HS 09/11/20 10/16/20 History Gabapentin [Neurontin] 200 mg PO BID 09/11/20 10/16/20 History Atorvastatin [Lipitor] 20 mg PO HS tab 09/20/20 10/16/20 Rx predniSONE 10 mg PO DAILY 30 Days #60 tab 09/20/20 10/16/20 Rx ALPRAZolam [Xanax] 0.25 mg PO Q8H PRN 10/06/20 10/16/20 History Alendronate Sodium [Fosamax] 70 mg PO WE@0600 10/06/20 10/16/20 History Aspirin 81 mg PO DAILY 10/06/20 10/16/20 History Famotidine [Pepcid] 20 mg PO BID@0900,1700 10/06/20 10/16/20 History Meclizine [Antivert] 12.5 mg PO TID@0900,1300,2100 10/06/20 10/16/20 History Sennosides-Docusate Sodium 1 tab PO DAILY@1300 10/06/20 10/16/20 History [Senokot-S] Hydrocortisone Suppository 25 mg RECTAL BID 7 Days #14 supp 10/12/20 10/16/20 Rx [Anusol-Hc] Morphine Sulfate ER [Ms Contin] 15 mg PO HS tablet 10/12/20 10/16/20 Rx HYDROcodone/APAP 7.5-325MG [[place] 1 tab PO Q6H PRN 10/16/20 10/16/20 History 7.5-325] Allergies Allergy/AdvReac Type Severity Reaction Status Date / Time clindamycin HCl Allergy Rash/Hives Verified 10/16/20 18:30 [From Cleocin] clindamycin palmitate HCl Allergy Rash/Hives Verified 10/16/20 18:30 [From Cleocin] clindamycin phosphate Allergy Rash/Hives Verified 10/16/20 18:30 [From Cleocin] latex Allergy Rash/Hives Verified 10/16/20 18:30 Physical Exam Vitals: Vital Signs Temp Pulse Pulse Resp BP BP Pulse Ox 10/17/20 07:42 97.5 F L 79 19 104/62 96 10/17/20 07:15 19 10/17/20 05:04 97.6 F 90 16 128/70 91 L 10/17/20 03:12 97.6 F 86 16 122/69 94 L 10/16/20 21:55 98.2 F 66 18 118/69 95 10/16/20 20:46 66 18 10/16/20 19:36 98.6 F 99 20 136/78 97 10/16/20 18:30 97 10/16/20 17:40 20 10/16/20 17:30 98.9 F 100 20 131/71 98 Intake and Output 10/16/20 10/17/20 10/17/20 22:59 06:59 14:59 Output Total 700 825 Balance -700 -825 Output: Urine 825 Other 700 Other: # Bowel Movements 4 Weight 68.039 kg In general patient is alert and oriented 3 in no apparent distress HEENT head normocephalic and atraumatic Neck is supple no JVD no goiter no lymphadenopathy Chest exam reveals a few scattered rhonchi no wheezing Cardiac exam reveals regular heart sounds S1 and S2 no gallops no murmurs Abdomen is soft nontender no organomegaly was normal bowel sounds Extremity exam reveals no edema no cyanosis or clubbing Neurological examination reveals no gross focal deficits Results CBC & Chem 7: 10/17/20 10:39 10/17/20 10:39 Thrombosis Risk Factor Assmnt - Choose All That Apply Each Risk Factor Represents 3 Points: Age 75 years or older Thrombosis Risk Factor Assessment Total Risk Factor Score: 3 Thrombosis Risk Factor Assessment Level: Moderate Risk Assessment and Plan Plan: 1. Covid 19 pneumonia, pulmonary consultation was requested patient was started on Decadron and Lovenox 2. Acute hypoxic respiratory failure requiring oxygen use currently she is on nasal cannula at 4 L 2. Diarrhea will check stools for C. diff 3. Recent surgery for hemorrhoids, will reconsult Dr. Alatorre for evaluation 4. Underlying history of scleroderma 5. Pressure area and the sacral area, will apply duoderm and consult wound care Medication and labs were reviewed please see orders will follow in a.m.
[2020-10-17 19:21] LABS: Amorphous Sediment,Urine Occasional /hpf; Appearance,Urine Cloudy (Clear); Bacteria,Urine Occasional /hpf; Bilirubin,Urine Negative (Negative); Blood,Urine Moderate (Negative); Calcium Oxalate Crystals,Urine Occasional /hpf; Color,Urine Yellow; Glucose,Urine (UA) Negative (Negative); Hyaline Casts,Urine 2 /lpf (0-2); Ketones,Urine Negative (Negative); Leukocyte Esterase,Urine Large (Negative); Mucus,Urine Rare /hpf; Nitrite,Urine Negative (Negative); Protein,Urine Trace (Negative); RBC,Urine >182 /hpf (0-5); Specific Gravity,Urine 1.036 (1.001-1.035); Squamous Epithelial Cell,Urine <1 /hpf (0-4); Urobilinogen,Urine <2.0 mg/dL (<2.0); WBC,Urine 151 /hpf (0-5)
[2020-10-17] MEDS: MORPHINE SULFATE ER 15 MG TABLET PO SCH (22:03)
[2020-10-17] MEDS: ATORVASTATIN 20 MG TAB PO SCH (22:04)
[2020-10-17] MEDS: MELATONIN 5 MG TABLET PO SCH (22:04)
[2020-10-18] MEDS: ASPIRIN 81 MG PO SCH (08:10)
[2020-10-18] MEDS: DEXAMETHASONE SOD PHOSPHATE 10 MG/ML 1 ML VIAL IV SCH (08:10)
[2020-10-18] MEDS: FAMOTIDINE 20 MG TAB PO SCH ×2 (08:10→17:29)
[2020-10-18] MEDS: MECLIZINE 12.5 MG TAB PO SCH ×3 (08:10→22:01)
[2020-10-18] MEDS: HYDROcodone/APAP 7.5-325MG 1 EACH TAB PO PRN (08:10)
[2020-10-18] MEDS: GABAPENTIN 100 MG CAP PO SCH ×2 (08:10→21:59)
[2020-10-18] MEDS: METOPROLOL TARTRATE 12.5 MG TAB PO SCH ×2 (08:10→22:01)
[2020-10-18] MEDS: HEPARIN SODIUM,PORCINE 5,000 UNIT/ML 1 ML VIAL SQ SCH (08:10)
[2020-10-18] MEDS: NIFEdipine XL 30 MG TAB.ER.24 PO SCH ×2 (08:10→22:02)
[2020-10-18] MEDS: HYDROCORTISONE SUPPOSITORY 25 MG SUPP RECTAL PRN (10:48)
--- NOTE | 2020-10-18 11:33 | P.PN ---
Subjective Progress Note Date: 10/18/20 75-year-old female patient was transferred from [facility] because of worsening shortness of breath and worsening hypoxemia. The patient is known to me from previous hospitalization. The patient was being checked by visiting nurse and she was found to be quite hypoxic and the pulse ox was down to 76% at home. I'm not sure if she was wearing oxygen at that time or not. Based on that, she got transferred initially to [facility] and subsequently the patient was transferred to us for further care. No reported copy no significant sputum production. She has exertional dyspnea and sometimes dyspnea at rest. The patient's white cell count of 10.2. The patient's hemoglobin is 11.7. The patient continued to have some lymphopenia with a lymphocyte count of 0.5. D- dimer is 1.26. Creatinine is at 0.33. Inflammatory markers have not been obtained. At that point, and I compared it to the earlier CAT scan that was done on the same patient on 09/11/2020. The CAT scan showed satisfactory enhancement of the pulmonary arteries and there was no evidence of any pulmonary embolism. There was small bilateral pleural effusions that was new onset. There was some background reticular and fibrotic changes in the mid and lower lung torres bilaterally in addition to some areas of multifocal areas of groundglass opacity with interlobular septal thickening most prominent in the lower lobes. In comparison, there was some interval progression compared to 09/13/2020. There are areas of organizing consolidation bilaterally. No evidence of any pneumothorax. Note that the patient was diagnosed and treated for covid19 infection back in August 2020. At that time, the patient was requiring high flow oxygen. I think she was briefly placed on BiPAP. During the course of his treatment, the patient received convalescent plasma and she also received Remdesivir. The patient was also treated with steroids and ultimately she was discharged home. Note that the time of discharge, the patient was still having bilateral lower lobe pulmonary infiltrates/consolidation. She is known also to have scleroderma along with Raynaud's syndrome and hypertension. The echo of the heart shows no significant pulmonary hypertension. There is mild elevation of the PA pressure of 43. Left ventricle ejection fraction has been within normal limits. Note that following her discharge from the hospital, the patient was readmitted to the hospital for rectal pain with evidence of proctitis and she underwent a incision and drainage of a thrombosed external hemorrhoids. On today's evaluation of 10/18/2020, the patient remains on 4 L of oxygen by nasal cannula. No worsening in her breathing compared to yesterday. In fact she feels she is doing slightly better in terms of her breathing. She does have coarse crackles in lung bases bilaterally. Meanwhile, there is a concern for an underlying UTI. She still has a Panchal catheter in place. UA was done and was quite abnormal and the patient was started on IV Rocephin. I have her back on Decadron 6 mg IV every 24 hours and she is also on IV Rocephin Objective - Vital Signs Vital signs: Vital Signs Temp 97.8 F 10/18/20 10:40 Pulse 64 10/18/20 10:40 Resp 16 10/18/20 10:40 BP 119/68 10/18/20 10:40 Pulse Ox 97 10/18/20 10:40 Intake & Output 10/17/20 10/18/20 10/18/20 18:59 06:59 18:59 Output Total 1700 1825 Balance -1700 -1825 Output: Urine 1700 1825 Other: Voiding Method Indwelling Catheter # Bowel Movements 5 - Exam GENERAL EXAM: Alert, pleasant,frail 74-year-old female patient, on 4 liter of oxygen by nasal cannula, HEAD: Normocephalic. EYES: Normal reaction of pupils, equal size. NOSE: Clear with pink turbinates. THROAT: No erythema or exudates. NECK: No masses, no JVD. CHEST: No chest wall deformity. LUNGS: Equal air entry with basilar crackles, few scattered rhonchi, diminished CVS: S1 and S2 normal with no audible murmur, regular rhythm. ABDOMEN: No hepatosplenomegaly, normal bowel sounds, no guarding or rigidity. SPINE: No scoliosis or deformity SKIN: No rashes, skin changes consistent with scleroderma CENTRAL NERVOUS SYSTEM: No focal deficits, tone is normal in all 4 extremities. EXTREMITIES: There is no peripheral edema. No clubbing, no cyanosis. Peripheral pulses are intact. - Labs CBC & Chem 7: 10/17/20 10:39 10/17/20 10:39 Labs: Abnormal Lab Results - Last 24 Hours (Table) 10/17/20 10/17/20 10/17/20 Range/Units 10:39 10:52 19:00 D-Dimer 1.26 H (<0.60) mg/L FEU Procalcitonin 0.17 H (0.02-0.09) ng/mL Urine Appearance Cloudy H (Clear) Ur Specific [place] 1.036 H (1.001-1.035) Urine Protein Trace H (Negative) Urine Blood Moderate H (Negative) Ur Leukocyte Esterase Large H (Negative) Urine RBC >182 H (0-5) /hpf Urine WBC 151 H (0-5) /hpf Calcium Oxalate Crystal Occasional H (None) /hpf Amorphous Sediment Occasional H (None) /hpf Urine Bacteria Occasional H (None) /hpf Urine Mucus Rare H (None) /hpf Microbiology - Last 24 Hours (Table) 10/17/20 20:13 Stool Culture - Preliminary Stool 10/17/20 19:00 Urine Culture - Preliminary Urine,Clean Catch Assessment and Plan Plan: 1 acute on chronic hypoxic respiratory failure. The patient was hospitalized in late July and August for acute hypoxic respiratory failure secondary to community related pneumonia. The patient clinically improved and the patient was discharged home with home oxygen. Her symptoms got worse since and the patient comes back to the hospital with oxygen 4 L per minute nasal cannula. CT angiogram showed no evidence of any pulmonary embolism. There is some worsening in the pulmonary infiltrates bilaterally. Consider superinfection. Consider progression of the prado virus19 inflammatory changes post weaning of the systemic steroids. Note that the patient has been chronically immunosuppressed with CellCept. The patient completed a prednisone burst taper at time of discharge from the hospital. For now, the patient is back on Decadron 6 mg IV every 24 hours. Outpatient medications of been all resumed. The CellCept was placed on hold. A procalcitonin level was done and was at 0.17, considered to be low 2 systemic sclerosis maintained on CellCept and prednisone 3 chronic lower lobe pulmonary fibrosis 4 [id number] pulmonary hypertension, secondary nature 5 long-term immunosuppression with a combination of CellCept and prednisone 6 hyperlipidemia 7 osteoarthritis 8 suspected UTI currently on IV Rocephin Plan Continue IV Rocephine Restart Decadron 6 mg IV push Continue CellCept for now Wean down the FiO2 to maintain a saturation above 90% Check pro calcitonin level the level of pro calcitonin level was 0.17 Check inflammatory markers Monitor oxygenation May consider bronchoscopy if there is any worsening in oxygenation or pulmonary status.
--- NOTE | 2020-10-18 12:34 | P.GSCN ---
History of Present Illness Consult date: 10/18/20 History of present illness: CHIEF COMPLAINT: Shortness of breath HISTORY OF PRESENT ILLNESS: This is a 75-year-old female with history of scleroderma. Patient recently discharged 3 days ago. During her last hospitalization patient had a thrombosed external hemorrhoid and is status post incision and drainage of thrombosed external hemorrhoid with Dr. Alatorre on 04/2021. She is being treated for possible C. diff. Patient is a transfer from [place] due to worsening shortness of breath and hypoxia. Oxygen saturation was only 76%. Patient was hospitalized with Covid 19 pneumonia for about a month and discharged on 09/20/2020. Patient is being followed by pulmonary service. She had a computed tomography scan of the chest showing persistent Covid 19 infection with progression. No evidence of PE. Pulmonary service has her on IV Decadron. Patient complaining of upper abdominal pain that wraps around the upper abdomen with persistent diarrhea. Patient also evaluated by wound care service regarding wound on the left buttocks area. Patient seen and examined with Dr. Alatorre PAST MEDICAL HISTORY: See list. PAST SURGICAL HISTORY: See list. MEDICATIONS: See list. ALLERGIES: See list. SOCIAL HISTORY: No illicit drug use. REVIEW OF SYSTEMS: CONSTITUTIONAL: Denies fever or chills. HEENT: Denies blurred vision, vision changes, or eye pain. Denies hemoptysis CARDIOVASCULAR: Denies chest pain or pressure. RESPIRATORY: No shortness of breath. GASTROINTESTINAL: See HPI for pertinent findings HEMATOLOGIC: Denies bleeding disorders. GENITOURINARY: Denies any blood in urine or increased urinary frequency. SKIN: Denies pruitis. Denies rash. PHYSICAL EXAM: VITAL SIGNS: Reviewed GENERAL: Well-developed in no acute distress. HEENT: No sclera icterus. Extraocular movements grossly intact. Moist buccal mucosa. Head is atraumatic, normocephalic. No nasal drainage. ABDOMEN: Soft. Nondistended. Tenderness right upper quadrant NEUROLOGIC: Alert and oriented. Cranial nerves II through XII grossly intact. LABORATORY DATA: WBC 10.2 hemoglobin 11.7 platelets 479 d-dimer 1.26 LFTs normal , calcitonin 0.17 Urinalysis positive for UTI IMAGING: CT of chest persistent Covid 19 infection with interval progression from prior CT. Worsening lung opacities and organizing consolidations in the lower lungs noted. No PE. Component of CHF exacerbation on background and chronic basilar fibrotic changes suspected ASSESSMENT: 1. Upper Abdominal pain 2. Diarrhea 3. Thrombosed external hemorrhoid status post incision and drainage of thrombosed external hemorrhoid on 10/07/[address] Alatorre 4. Covid 19 pneumonia PLAN: -Check HIDA scan with EF -Check stool for C. diff -Continue supportive care Thank you for this consultation Physician Director Building note has been reviewed by physician. Signing provider agrees with the documented findings, assessment, and plan of care. 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 Does NOT want to ever return there. Spouse was admitted to [facility] in [place] with covid. Pt last spoke to him 09/09 and currently doesnt know his status or whereabouts. Smoking Status: Never smoker Past Alcohol Use History: None Reported Past Drug Use History: None Reported - Past Family History Mother Family Medical History: Dementia, Hypertension Additional Family Medical History / Comment(s): Lived until 102 Father Family Medical History: COPD Additional Family Medical History / Comment(s): in his late 60's from emphysema Medications and Allergies Home Medications Medication Instructions Recorded Confirmed Type NIFEdipine [Nifedical Xl] 30 mg PO BID 06/28/15 10/16/20 History Acetaminophen [Tylenol Arthritis] 650 mg PO Q8H PRN 08/27/20 10/16/20 History Cholecalciferol [Vitamin D3 (25 1,000 unit PO HS 08/27/20 10/16/20 History Mcg = 1000 Iu)] Mycophenolate Mofetil [Cellcept] 500 mg PO TID@0500,1300,2100 08/27/20 10/16/20 History Celecoxib [CeleBREX] 200 mg PO BID 08/29/20 10/16/20 History Melatonin 5 mg PO HS tablet 09/10/20 10/16/20 Rx Metoprolol Tartrate [Lopressor] 12.5 mg PO BID tab 09/10/20 10/16/20 Rx Ascorbic Acid [Vitamin C] 1,000 mg PO HS 09/11/20 10/16/20 History Gabapentin [Neurontin] 200 mg PO BID 09/11/20 10/16/20 History Atorvastatin [Lipitor] 20 mg PO HS tab 09/20/20 10/16/20 Rx predniSONE 10 mg PO DAILY 30 Days #60 tab 09/20/20 10/16/20 Rx ALPRAZolam [Xanax] 0.25 mg PO Q8H PRN 10/06/20 10/16/20 History Alendronate Sodium [Fosamax] 70 mg PO WE@0600 10/06/20 10/16/20 History Aspirin 81 mg PO DAILY 10/06/20 10/16/20 History Famotidine [Pepcid] 20 mg PO BID@0900,1700 10/06/20 10/16/20 History Meclizine [Antivert] 12.5 mg PO TID@0900,1300,2100 10/06/20 10/16/20 History Sennosides-Docusate Sodium 1 tab PO DAILY@1300 10/06/20 10/16/20 History [Senokot-S] Hydrocortisone Suppository 25 mg RECTAL BID 7 Days #14 supp 10/12/20 10/16/20 Rx [Anusol-Hc] Morphine Sulfate ER [Ms Contin] 15 mg PO HS tablet 10/12/20 10/16/20 Rx HYDROcodone/APAP 7.5-325MG [[place] 1 tab PO Q6H PRN 10/16/20 10/16/20 History 7.5-325] Allergies Allergy/AdvReac Type Severity Reaction Status Date / Time clindamycin HCl Allergy Rash/Hives Verified 10/16/20 18:30 [From Cleocin] clindamycin palmitate HCl Allergy Rash/Hives Verified 10/16/20 18:30 [From Cleocin] clindamycin phosphate Allergy Rash/Hives Verified 10/16/20 18:30 [From Cleocin] latex Allergy Rash/Hives Verified 10/16/20 18:30 Surgical - Exam Vital Signs Temp Pulse Resp BP Pulse Ox 98.9 F 100 20 131/71 98 10/16/20 17:30 10/16/20 17:30 10/16/20 17:30 10/16/20 17:30 10/16/20 17:30 Results - Labs 10/17/20 10:39 10/17/20 10:39 Abnormal Lab Results - Last 24 Hours (Table) 10/17/20 10/17/20 Range/Units 10:39 19:00 Procalcitonin 0.17 H (0.02-0.09) ng/mL Urine Appearance Cloudy H (Clear) Ur Specific [place] 1.036 H (1.001-1.035) Urine Protein Trace H (Negative) Urine Blood Moderate H (Negative) Ur Leukocyte Esterase Large H (Negative) Urine RBC >182 H (0-5) /hpf Urine WBC 151 H (0-5) /hpf Calcium Oxalate Crystal Occasional H (None) /hpf Amorphous Sediment Occasional H (None) /hpf Urine Bacteria Occasional H (None) /hpf Urine Mucus Rare H (None) /hpf Microbiology - Last 24 Hours (Table) 10/17/20 20:13 Stool Culture - Preliminary Stool 10/17/20 19:00 Urine Culture - Preliminary Urine,Clean Catch
--- NOTE | 2020-10-18 12:36 | P.CONS ---
History of Present Illness - Reason for Consult Consult date: 10/18/20 wound care - History of Present Illness this is a 75-year-old patient being seen on 4 S. by the wound care for nonhealing ulceration to the left gluteus. Patient states that the ulceration has been there for approximately one week. patient complains of tenderness and pain to the site. At this time zinc and a foam border dressing is in place. Left gluteus ulceration shows ecchymosis with a cluster of 4 ulcerations tot aling 1.5 x 1 x 0.1 cm wound that shows granulation throughout with minimal slough. The ulcerations are Limited to skin breakdown. No history significant for oosteoarthritis, pneumonia, Raynaud's syndrome, systemic scleroderma Review Of Systems: Constitutional: No fever, no chills, no night sweats. No weight change. No weakness, fatigue or lethargy. No daytime sleepiness. Integumentary:reports wounds, no lesions. No rash or pruritus. No unusual bruising. No change in hair or nails. Physical exam: General Appearance: Alert, cooperative, no distress, appears stated age. Skin: See HPI all other Skin color, texture, tugor normal, no rashes or lesions. 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 Does NOT want to ever return there. Spouse was admitted to [facility] in [place] with [place]. Pt last spoke to him 09/09 and currently doesnt know his status or whereabouts. Smoking Status: Never smoker Past Alcohol Use History: None Reported Past Drug Use History: None Reported - Past Family History Mother Family Medical History: Dementia, Hypertension Additional Family Medical History / Comment(s): Lived until 102 Father Family Medical History: COPD Additional Family Medical History / Comment(s): in his late 60's from emphysema Medications and Allergies Home Medications Medication Instructions Recorded Confirmed Type NIFEdipine [Nifedical Xl] 30 mg PO BID 06/28/15 10/16/20 History Acetaminophen [Tylenol Arthritis] 650 mg PO Q8H PRN 08/27/20 10/16/20 History Cholecalciferol [Vitamin D3 (25 1,000 unit PO HS 08/27/20 10/16/20 History Mcg = 1000 Iu)] Mycophenolate Mofetil [Cellcept] 500 mg PO TID@0500,1300,2100 08/27/20 10/16/20 History Celecoxib [CeleBREX] 200 mg PO BID 08/29/20 10/16/20 History Melatonin 5 mg PO HS tablet 09/10/20 10/16/20 Rx Metoprolol Tartrate [Lopressor] 12.5 mg PO BID tab 09/10/20 10/16/20 Rx Ascorbic Acid [Vitamin C] 1,000 mg PO HS 09/11/20 10/16/20 History Gabapentin [Neurontin] 200 mg PO BID 09/11/20 10/16/20 History Atorvastatin [Lipitor] 20 mg PO HS tab 09/20/20 10/16/20 Rx predniSONE 10 mg PO DAILY 30 Days #60 tab 09/20/20 10/16/20 Rx ALPRAZolam [Xanax] 0.25 mg PO Q8H PRN 10/06/20 10/16/20 History Alendronate Sodium [Fosamax] 70 mg PO WE@0600 10/06/20 10/16/20 History Aspirin 81 mg PO DAILY 10/06/20 10/16/20 History Famotidine [Pepcid] 20 mg PO BID@0900,1700 10/06/20 10/16/20 History Meclizine [Antivert] 12.5 mg PO TID@0900,1300,2100 10/06/20 10/16/20 History Sennosides-Docusate Sodium 1 tab PO DAILY@1300 10/06/20 10/16/20 History [Senokot-S] Hydrocortisone Suppository 25 mg RECTAL BID 7 Days #14 supp 10/12/20 10/16/20 Rx [Anusol-Hc] Morphine Sulfate ER [Ms Contin] 15 mg PO HS tablet 10/12/20 10/16/20 Rx HYDROcodone/APAP 7.5-325MG [[place] 1 tab PO Q6H PRN 10/16/20 10/16/20 History 7.5-325] Allergies Allergy/AdvReac Type Severity Reaction Status Date / Time clindamycin HCl Allergy Rash/Hives Verified 10/16/20 18:30 [From Cleocin] clindamycin palmitate HCl Allergy Rash/Hives Verified 10/16/20 18:30 [From Cleocin] clindamycin phosphate Allergy Rash/Hives Verified 10/16/20 18:30 [From Cleocin] latex Allergy Rash/Hives Verified 10/16/20 18:30 Physical Exam Vitals: Vital Signs Temp Pulse Resp BP Pulse Ox 10/18/20 10:40 97.8 F 64 16 119/68 97 10/18/20 04:41 97.6 F 90 19 148/77 97 10/18/20 01:51 97.5 F L 82 20 135/76 97 10/17/20 19:15 79 10/17/20 18:50 98.7 F 79 19 125/71 96 10/17/20 14:00 98.1 F 66 18 133/75 95 Intake and Output 10/17/20 10/18/20 10/18/20 22:59 06:59 14:59 Output Total 1700 1825 Balance -1700 -1825 Output: Urine 1700 1825 Other: Voiding Method Indwelling Catheter # Bowel Movements 5 Results CBC & Chem 7: 10/17/20 10:39 10/17/20 10:39 Labs: Abnormal Lab Results - Last 24 Hours (Table) 10/17/20 10/17/20 Range/Units 10:39 19:00 Procalcitonin 0.17 H (0.02-0.09) ng/mL Urine Appearance Cloudy H (Clear) Ur Specific [place] 1.036 H (1.001-1.035) Urine Protein Trace H (Negative) Urine Blood Moderate H (Negative) Ur Leukocyte Esterase Large H (Negative) Urine RBC >182 H (0-5) /hpf Urine WBC 151 H (0-5) /hpf Calcium Oxalate Crystal Occasional H (None) /hpf Amorphous Sediment Occasional H (None) /hpf Urine Bacteria Occasional H (None) /hpf Urine Mucus Rare H (None) /hpf Microbiology - Last 24 Hours (Table) 10/17/20 20:13 Stool Culture - Preliminary Stool 10/17/20 19:00 Urine Culture - Preliminary Urine,Clean Catch Assessment and Plan Plan: 1. Stage II pressure ulcer left gluteus with fat layer exposure. Apply triad and foam gauze to the site daily. Utilize waffle cushion for sitting. turn patient every 2 hours. patient may continue utilizing triad upon discharge. thank you for the consultation any questions with contact the wound care center DNP note has been reviewed and discussed with Dr. Cornejo and the impression and plan of care has been directed as dictated.
--- NOTE | 2020-10-18 14:30 | P.CONS ---
History of Present Illness - Reason for Consult Consult date: 10/18/20 UTI, Covid pneumonia - History of Present Illness HISTORY OF PRESENT ILLNESS This is a 75-year-old female with past medical history of scleroderma on immunosuppressive medications. Patient gives history that she was recently treated for Covid 19 pneumonia in July and received Remdesivir and convalescent plasma. She now presents with hypoxia as her home care nurse found her pulse ox to be 76. She initially presented to [facility] and was subsequently transferred to [facility]. She had that time apparently was having some shortness of breath but she denies now. She states she has a little bit of a cough that is nonproductive. No chest pain. No nausea or vomiting. No abdominal pain. She denies any fever or chills. She does states that she had difficulty was unable to urinate and Panchal catheter has been placed. Urinalysis cloudy, leukoesterase large, RBCs greater than 182, wbc's 151 Chest x-ray showed bilateral pneumonia and she was given a dose of cefepime and currently on Rocephin. REVIEW OF SYSTEMS Constitutional: No fever, no chills, no night sweats. EENT: No headache. No nasal drainage or congestion. No epistaxis. No sore throat. Lungs: No shortness of breath, cough, [place] sputum production. No wheezing. Cardiovascular: No chest pain, no lower extremity edema. No lightheadedness or dizziness. No syncopal episodes. Abdominal: No abdominal pain. No nausea, vomiting. No diarrhea. No constipation. No loss of appetite. Genitourinary: No dysuria, increased frequency, urgency. No urinary retention. Musculoskeletal: No myalgias. No muscle weakness. Integumentary: No wounds, no lesions. No rash or pruritus. Neurologic: No aphasia. No facial droop. No change in mentation. Endocrine: No abnormal blood sugars. PHYSICAL EXAMINATION Gen: This is a 75-year-old female. Patient is resting in bed and appears to be comfortable. No respiratory distress noted. VS: Afebrile, heart rate 64, blood pressure 119/68, pulse ox 97% on 4 L nasal cannula. HEENT: Head is atraumatic, normocephalic. Pupils equal, round. Sclerae is anicteric. NECK: Supple. No JVD. No lymphadenopathy. No thyromegaly. LUNGS: Diminished at the bases. No wheezes. No intercostal retractions. HEART: Regular rate and rhythm. No murmur. ABDOMEN: Soft. Bowel sounds are present. No masses. No tenderness. EXTREMITIES: No pedal edema. No calf tenderness. NEUROLOGICAL: Patient is awake, alert and oriented x3. Cranial nerves 2 through 12 are grossly intact. ASSESSMENT Acute hypoxic respiratory failure Acute urinary tract infection Immunocompromise host with systemic sclerosis Left gluteal ulceration, pressure ulcer, present on admission PLAN Continue ceftriaxone Await urine culture and blood culture Further recommendations based upon patient's clinical course Continue supportive care Thank you kindly for this consultation. The above dictated assessment and findings were discussed with Dr. Wallace. The impression and plan of care have been directed as dictated. Antonieta Nguyen nurse practitioner acting as scribe for Dr. Wallace. 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 Does NOT want to ever return there. Spouse was admitted to [facility] in [place] with [facility]. Pt last spoke to him 09/09 and currently doesnt know his status or whereabouts. Smoking Status: Never smoker Past Alcohol Use History: None Reported Past Drug Use History: None Reported - Past Family History Mother Family Medical History: Dementia, Hypertension Additional Family Medical History / Comment(s): Lived until 102 Father Family Medical History: COPD Additional Family Medical History / Comment(s): in his late 60's from emphysema Medications and Allergies Home Medications Medication Instructions Recorded Confirmed Type NIFEdipine [Nifedical Xl] 30 mg PO BID 06/28/15 10/16/20 History Acetaminophen [Tylenol Arthritis] 650 mg PO Q8H PRN 08/27/20 10/16/20 History Cholecalciferol [Vitamin D3 (25 1,000 unit PO HS 08/27/20 10/16/20 History Mcg = 1000 Iu)] Mycophenolate Mofetil [Cellcept] 500 mg PO TID@0500,1300,2100 08/27/20 10/16/20 History Celecoxib [CeleBREX] 200 mg PO BID 08/29/20 10/16/20 History Melatonin 5 mg PO HS tablet 09/10/20 10/16/20 Rx Metoprolol Tartrate [Lopressor] 12.5 mg PO BID tab 09/10/20 10/16/20 Rx Ascorbic Acid [Vitamin C] 1,000 mg PO HS 09/11/20 10/16/20 History Gabapentin [Neurontin] 200 mg PO BID 09/11/20 10/16/20 History Atorvastatin [Lipitor] 20 mg PO HS tab 09/20/20 10/16/20 Rx predniSONE 10 mg PO DAILY 30 Days #60 tab 09/20/20 10/16/20 Rx ALPRAZolam [Xanax] 0.25 mg PO Q8H PRN 10/06/20 10/16/20 History Alendronate Sodium [Fosamax] 70 mg PO WE@0600 10/06/20 10/16/20 History Aspirin 81 mg PO DAILY 10/06/20 10/16/20 History Famotidine [Pepcid] 20 mg PO BID@0900,1700 10/06/20 10/16/20 History Meclizine [Antivert] 12.5 mg PO TID@0900,1300,2100 10/06/20 10/16/20 History Sennosides-Docusate Sodium 1 tab PO DAILY@1300 10/06/20 10/16/20 History [Senokot-S] Hydrocortisone Suppository 25 mg RECTAL BID 7 Days #14 supp 10/12/20 10/16/20 Rx [Anusol-Hc] Morphine Sulfate ER [Ms Contin] 15 mg PO HS tablet 10/12/20 10/16/20 Rx HYDROcodone/APAP 7.5-325MG [[place] 1 tab PO Q6H PRN 10/16/20 10/16/20 History 7.5-325] Allergies Allergy/AdvReac Type Severity Reaction Status Date / Time clindamycin HCl Allergy Rash/Hives Verified 10/16/20 18:30 [From Cleocin] clindamycin palmitate HCl Allergy Rash/Hives Verified 10/16/20 18:30 [From Cleocin] clindamycin phosphate Allergy Rash/Hives Verified 10/16/20 18:30 [From Cleocin] latex Allergy Rash/Hives Verified 10/16/20 18:30 Physical Exam Vitals: Vital Signs Temp Pulse Resp BP Pulse Ox 10/18/20 10:40 97.8 F 64 16 119/68 97 10/18/20 04:41 97.6 F 90 19 148/77 97 10/18/20 01:51 97.5 F L 82 20 135/76 97 10/17/20 19:15 79 10/17/20 18:50 98.7 F 79 19 125/71 96 10/17/20 14:00 98.1 F 66 18 133/75 95 Intake and Output 10/17/20 10/18/20 10/18/20 22:59 06:59 14:59 Output Total 1700 1825 Balance -1700 -1825 Output: Urine 1700 1825 Other: Voiding Method Indwelling Catheter # Bowel Movements 5 Results CBC & Chem 7: 10/17/20 10:39 10/17/20 10:39 Labs: Abnormal Lab Results - Last 24 Hours (Table) 10/17/20 10/17/20 Range/Units 10:39 19:00 Procalcitonin 0.17 H (0.02-0.09) ng/mL Urine Appearance Cloudy H (Clear) Ur Specific [place] 1.036 H (1.001-1.035) Urine Protein Trace H (Negative) Urine Blood Moderate H (Negative) Ur Leukocyte Esterase Large H (Negative) Urine RBC >182 H (0-5) /hpf Urine WBC 151 H (0-5) /hpf Calcium Oxalate Crystal Occasional H (None) /hpf Amorphous Sediment Occasional H (None) /hpf Urine Bacteria Occasional H (None) /hpf Urine Mucus Rare H (None) /hpf Microbiology - Last 24 Hours (Table) 10/17/20 20:13 Stool Culture - Preliminary Stool 10/17/20 19:00 Urine Culture - Preliminary Urine,Clean Catch
[2020-10-18] MEDS: SENNOSIDES-DOCUSATE SODIUM 1 EACH TAB PO SCH (14:46)
[2020-10-18] MEDS: HYDROPHILIC CREAM 180 GM TUBE TOPICAL SCH (14:47)
[2020-10-18] MEDS ORDERED: ENOXAPARIN 40 MG/0.4 ML SYRINGE SQ SCH (16:00)
[2020-10-18] MEDS: SODIUM CHLORIDE 0.9% 1,000 ML IV SCH (16:38)
[2020-10-18] MEDS: ENOXAPARIN 40 MG/0.4 ML SYRINGE SQ SCH (21:59)
[2020-10-18] MEDS: MELATONIN 5 MG TABLET PO SCH (21:59)
[2020-10-18] MEDS: MORPHINE SULFATE ER 15 MG TABLET PO SCH (21:59)
[2020-10-18] MEDS: ATORVASTATIN 20 MG TAB PO SCH (22:01)
[2020-10-19 07:15] LABS: Anisocytosis Slight; Basophils # (A) 0.2 k/uL (0-0.2); Basophils % (A) 1 %; Eosinophils # (A) 0.2 k/uL (0-0.7); Eosinophils % (A) 1 %; HCT 38.1 % (34.0-46.0); HGB 11.3 gm/dL (11.4-16.0); Hypochromasia Marked; Lymphocytes # (A) 1.2 k/uL (1.0-4.8); Lymphocytes % (A) 10 %; MCH 28.8 pg (25.0-35.0); MCHC 29.8 g/dL (31.0-37.0); MCV 96.5 fL (80.0-100.0); Macrocytosis Slight; Mean Platelet Volume 6.9; Monocytes % (A) 9 %; Neutrophils # (A) 9.3 k/uL (1.3-7.7); Neutrophils % (A) 77 %; Platelet Count 512 k/uL (150-450); RBC 3.94 m/uL (3.80-5.40); RDW 19.9 % (11.5-15.5); WBC 12.1 k/uL (3.8-10.6)
[2020-10-19] MEDS: ASPIRIN 81 MG PO SCH (08:58)
[2020-10-19] MEDS: METOPROLOL TARTRATE 12.5 MG TAB PO SCH ×2 (08:58→22:03)
[2020-10-19] MEDS: FAMOTIDINE 20 MG TAB PO SCH ×2 (08:58→17:50)
[2020-10-19] MEDS: HYDROcodone/APAP 7.5-325MG 1 EACH TAB PO PRN ×2 (08:58→23:01)
[2020-10-19] MEDS: GABAPENTIN 100 MG CAP PO SCH ×2 (08:58→22:02)
[2020-10-19] MEDS: DEXAMETHASONE SOD PHOSPHATE 10 MG/ML 1 ML VIAL IV SCH (08:59)
[2020-10-19] MEDS: MECLIZINE 12.5 MG TAB PO SCH ×3 (08:59→22:59)
[2020-10-19] MEDS: NIFEdipine XL 30 MG TAB.ER.24 PO SCH ×2 (08:59→22:59)
[2020-10-19] MEDS: HYDROPHILIC CREAM 180 GM TUBE TOPICAL SCH (08:59)
--- NOTE | 2020-10-19 11:38 | P.PN ---
Subjective Progress Note Date: 10/19/20 CHIEF COMPLAINT: Shortness of breath HISTORY OF PRESENT ILLNESS: Patient is being followed for her upper abdominal pain and diarrhea. Her upper abdominal pain has resolved. Patient refused the HIDA scan. She is also reporting that her stools are becoming more formed. She is followed by infectious disease for UTI and is on antibiotics. Wound care service is following for left gluteal ulceration. She does report rectal pain and is requesting Anusol suppositories which are already ordered. Patient is afebrile. WBC 12.1 and patient is on steroids. Has Panchal catheter in place for urinary retention. Stool for C. diff on collected PHYSICAL EXAM: VITAL SIGNS: Reviewed. GENERAL: Well-developed in no acute distress. HEENT: No sclera icterus. Extraocular movements grossly intact. Moist buccal mucosa. Head is atraumatic, normocephalic. ABDOMEN: Soft. Nondistended. Nontender. NEUROLOGIC: Alert and oriented. Cranial nerves II through XII grossly intact. ASSESSMENT: 1. Upper Abdominal pain now improved. Patient refused HIDA scan 2. Diarrhea improving 3. Thrombosed external hemorrhoid status post incision and drainage of thrombosed external hemorrhoid on 10/07/[address] Alatorre 4. Covid 19 pneumonia followed by pulmonary service 5. UTI PLAN: -Continue supportive care -No surgical intervention planned Physician Urogynecology Physician note has been reviewed by physician. Signing provider agrees with the documented findings, assessment, and plan of care. Objective - Vital Signs Vital signs: Vital Signs Temp 98.2 F 10/19/20 09:11 Pulse 75 10/19/20 09:11 Resp 17 10/19/20 09:11 BP 113/64 10/19/20 09:11 Pulse Ox 92 L 10/19/20 09:11 Intake & Output 10/18/20 10/19/20 10/19/20 18:59 06:59 18:59 Output Total 1300 Balance -1300 Output: Urine 1300 Other: Voiding Method Indwelling Catheter Indwelling Catheter # Bowel Movements 1 1 - Labs CBC & Chem 7: 10/19/20 06:38 10/17/20 10:39 Labs: Abnormal Lab Results - Last 24 Hours (Table) 10/19/20 Range/Units 06:38 WBC 12.1 H (3.8-10.6) k/uL Hgb 11.3 L (11.4-16.0) gm/dL MCHC 29.8 L (31.0-37.0) g/dL RDW 19.9 H (11.5-15.5) % Plt Count 512 H (150-450) k/uL Neutrophils # 9.3 H (1.3-7.7) k/uL Microbiology - Last 24 Hours (Table) 10/17/20 19:00 Urine Culture - Final Urine,Clean Catch
--- NOTE | 2020-10-19 11:52 | P.PN ---
Subjective Progress Note Date: 10/19/20 75-year-old female patient was transferred from [facility] because of worsening shortness of breath and worsening hypoxemia. The patient is known to me from previous hospitalization. The patient was being checked by visiting nurse and she was found to be quite hypoxic and the pulse ox was down to 76% at home. I'm not sure if she was wearing oxygen at that time or not. Based on that, she got transferred initially to [facility] and subsequently the patient was transferred to us for further care. No reported copy no significant sputum production. She has exertional dyspnea and sometimes dyspnea at rest. The patient's white cell count of 10.2. The patient's hemoglobin is 11.7. The patient continued to have some lymphopenia with a lymphocyte count of 0.5. D- dimer is 1.26. Creatinine is at 0.33. Inflammatory markers have not been obtained. At that point, and I compared it to the earlier CAT scan that was done on the same patient on 09/11/2020. The CAT scan showed satisfactory enhancement of the pulmonary arteries and there was no evidence of any pulmonary embolism. There was small bilateral pleural effusions that was new onset. There was some background reticular and fibrotic changes in the mid and lower lung torres bilaterally in addition to some areas of multifocal areas of groundglass opacity with interlobular septal thickening most prominent in the lo wer lobes. In comparison, there was some interval progression compared to 09/13/2020. There are areas of organizing consolidation bilaterally. No evidence of any pneumothorax. Note that the patient was diagnosed and treated for covid19 infection back in August 2020. At that time, the patient was requiring high flow oxygen. I think she was briefly placed on BiPAP. During the course of his treatment, the patient received convalescent plasma and she also received Remdesivir. The patient was also treated with steroids and ultimately she was discharged home. Note that the time of discharge, the patient was still having bilateral lower lobe pulmonary infiltrates/consolidation. She is known also to have scleroderma along with Raynaud's syndrome and hypertension. The echo of the heart shows no significant pulmonary hypertension. There is mild elevation of the PA pressure of 43. Left ventricle ejection fraction has been within normal limits. Note that following her discharge from the hospital, the patient was readmitted to the hospital for rectal pain with evidence of proctitis and she underwent a incision and drainage of a thrombosed external hemorrhoids. On today's evaluation of 10/18/2020, the patient remains on 4 L of oxygen by nasal cannula. No worsening in her breathing compared to yesterday. In fact she feels she is doing slightly better in terms of her breathing. She does have coarse crackles in lung bases bilaterally. Meanwhile, there is a concern for an underlying UTI. She still has a Panchal catheter in place. UA was done and was quite abnormal and the patient was started on IV Rocephin. I have her back on Decadron 6 mg IV every 24 hours and she is also on IV Rocephin On 10/19/2020 patient seen in follow-up on the general medical surgical floor, no worsening dyspnea, she remains on 4 L of oxygen per pulse ox is 92-93%, she's been afebrile, hemodynamically she is been stable, denies any worsening congestion, occasional cough, no chest pain, no hemoptysis, remains on Rocephin for urinary tract infection, urine culture has been negative, no altered mentation. His labs have been reviewed showing white blood cell count of 12.1, hemoglobin is 11.3, platelet count is 512. No acute events overnight, she is getting ready to get up out of bed with therapy this afternoon. Tolerating oral intake, no nausea Objective - Vital Signs Vital signs: Vital Signs Temp 98.2 F 10/19/20 09:11 Pulse 75 10/19/20 09:11 Resp 17 10/19/20 09:11 BP 113/64 10/19/20 09:11 Pulse Ox 92 L 10/19/20 09:11 Intake & Output 10/18/20 10/19/20 10/19/20 18:59 06:59 18:59 Output Total 1300 Balance -1300 Output: Urine 1300 Other: Voiding Method Indwelling Catheter Indwelling Catheter # Bowel Movements 1 1 - Exam GENERAL EXAM: Alert, Isn't, 75-year-old white female, on 4 L of oxygen comfortable in no apparent distress. HEAD: Normocephalic/atraumatic. EYES: Normal reaction of pupils, equal size. Conjunctiva pink, sclera white. NOSE: Clear with pink turbinates. THROAT: No erythema or exudates. NECK: No masses, no JVD, no thyroid enlargement, no adenopathy. CHEST: No chest wall deformity. Symmetrical expansion. LUNGS: Equal air entry with Coarse crackles at the right lower base, and minimal fine crackles at the left base CVS: Regular rate and rhythm, normal S1 and S2, no gallops, no murmurs, no rubs ABDOMEN: Soft, nontender. No hepatosplenomegaly, normal bowel sounds, no guarding or rigidity. EXTREMITIES: No clubbing, no edema, no cyanosis, 2+ pulses and upper and lower extremities. MUSCULOSKELETAL: Muscle strength and tone normal. SPINE: No scoliosis or deformity SKIN: No rashes CENTRAL NERVOUS SYSTEM: Alert and oriented -3. No focal deficits, tone is normal in all 4 extremities. PSYCHIATRIC: Alert and oriented -3. Appropriate affect. Intact judgment and insight. - Labs CBC & Chem 7: 10/19/20 06:38 10/17/20 10:39 Labs: Abnormal Lab Results - Last 24 Hours (Table) 10/19/20 Range/Units 06:38 WBC 12.1 H (3.8-10.6) k/uL Hgb 11.3 L (11.4-16.0) gm/dL MCHC 29.8 L (31.0-37.0) g/dL RDW 19.9 H (11.5-15.5) % Plt Count 512 H (150-450) k/uL Neutrophils # 9.3 H (1.3-7.7) k/uL Microbiology - Last 24 Hours (Table) 10/17/20 19:00 Urine Culture - Final Urine,Clean Catch Assessment and Plan Plan: Assessment: #1. acute on chronic hypoxic respiratory failure. The patient was hospitalized in late July and August for acute hypoxic respiratory failure secondary to community related pneumonia. The patient clinically improved and the patient was discharged home with home oxygen. Her symptoms got worse since and the patient comes back to the hospital with oxygen 4 L per minute nasal cannula. CT angiogram showed no evidence of any pulmonary embolism. There is some worsening in the pulmonary infiltrates bilaterally. Consider superinfection. Consider progression of the prado virus19 inflammatory changes post weaning of the systemic steroids. Note that the patient has been chronically immunosuppressed with CellCept. The patient completed a prednisone burst taper at time of discharge from the hospital. For now, the patient is back on Decadron 6 mg IV every 24 hours. Outpatient medications of been all resumed. The CellCept was placed on hold. A procalcitonin level was done and was at 0.17, considered to be low #2. systemic sclerosis maintained on CellCept and prednisone #3. chronic lower lobe pulmonary fibrosis #4. [id number] pulmonary hypertension, secondary nature #5. long-term immunosuppression with a combination of CellCept and prednisone #6. hyperlipidemia #7. osteoarthritis #8. suspected UTI currently on IV Rocephin, Urine culture showed no growth Plan: We'll obtain follow-up chest x-ray today, continue with Rocephin for antibiotic coverage, and the patient is stable, no worsening dyspnea, no cough or congestion. Encourage deep breathing and coughing, provided incentive spirometer, increase activity as tolerated, we'll continue to follow I performed a history & physical examination of the patient and discussed their management with my nurse practitioner, Teagan Ceron. I reviewed the nurse practitioner's note and agree with the documented findings and plan of care. Lung sounds are positive for Crackles, greater on the right. The findings and the impression was discussed with the patient. I attest to the documentation by the nurse practitioner. Time with Patient: Less than 30
--- NOTE | 2020-10-19 12:39 | XR ---
EXAMINATION TYPE: XR chest 1V portable DATE OF EXAM: 10/19/2020 COMPARISON: 10/07/2020 INDICATION: Short of breath TECHNIQUE: Single frontal view of the chest is obtained. FINDINGS: The heart size is upper limits of normal. The pulmonary vasculature is normal. There is patchy infiltrate present bilaterally. Correlate for atypical pneumonia or pulmonary fibrosi s. A small nodule may be within the right apex measuring 0.8 cm. IMPRESSION: 1. Diffuse increased lung markings can be related to atypical pneumonia. Consider chronic condition s uch as pulmonary fibrosis.
[2020-10-19] MEDS: SENNOSIDES-DOCUSATE SODIUM 1 EACH TAB PO SCH (13:10)
[2020-10-19] MEDS: HYDROCORTISONE SUPPOSITORY 25 MG SUPP RECTAL PRN (13:10)
[2020-10-19 13:39] LABS: Potassium 4.5 mmol/L (3.5-5.5)
--- NOTE | 2020-10-19 16:40 | PN ---
PROGRESS NOTE DATE OF SERVICE: 10/19/2020 REASON FOR FOLLOWUP: UTI and a question of pneumonia. INTERVAL HISTORY: The patient is currently afebrile. The patient is breathing more comfortably. The patient denies having any chest pain or shortness of breath. Minimal cough. No abdominal pain or diarrhea. PHYSICAL EXAMINATION: Blood pressure 115/63 with a pulse of 60, temperature 98.2. She is 91% on 4 L nasal cannula. General description is an elderly female in the bed in no distress. RESPIRATORY SYSTEM: Unlabored breathing with decreased intensity of breath sounds. No wheeze. HEART: S1, S2. Regular rate and rhythm. ABDOMEN: Soft. No tenderness. LABS: Hemoglobin 11.3, white count 12.1. DIAGNOSTIC IMPRESSION AND PLAN: Patient admitted to hospital with multiple symptoms in this patient with concern for urinary tract infection. Abnormal x-ray with a question of pulmonary fibrosis versus atypical pneumonia. The patient is currently covered with Rocephin; to continue while monitoring clinical course closely. Continue with supportive care. MMODL / IJN: [id number] /
--- NOTE | 2020-10-19 16:56 | P.PN ---
Subjective Progress Note Date: 10/18/20 Claribel Ruiz is a 75 -year-old female who presented to [facility] emergency room, as a transfer from [facility] emergency room with a chief complaint of worsening shortness of breath, patient was also seen by a visiting nurse at her home and her pulse ox was low at 76%, admitted [facility] her oxygen saturation was in the mid 80s, patient was also having low-grade fever, she had a chest x-ray at [facility] that showed bilateral pneumonia per report, patient was given a dose of cefepime and was transferred to [facility] emergency room. Patient was recently discharged from [facility] after being admitted for rectal pain, thrombosed external hemorrhoids with bedside procedure by Dr. Alatorre and questionable C. diff infection, patient had a positive antigen but negative toxin at [facility] prior to the previous admission, patient received oral vancomycin in that regard, she was discharged home she was home less than 48 hours before returning with worsening shortness of breath. Prior to that patient was admitted to [facility] with Covid 19 pneumonia she had a prolonged admission lasting for about 1 month, she was discharged on 09/20/2020. At this time patient is complaining of shortness of breath she is also complaining of diarrhea she is complaining of pain in the rectal area otherwise she denies any complaints there is no fever or chills no headache or dizziness no chest pain no palpitation no nausea or vomiting no abdominal pain no blood in the stools no burning with urination no frequency or urgency and no hematuria On 10/18/2020 patient was seen and examined on the medical floor she is alert and oriented 3 in no apparent distress she is complaining of diarrhea, she is complaining of pain in the sacral area, she is also complaining of shortness of breath with activity otherwise she denies any complaints there is no fever or chills no headache or dizziness no chest pain no cough no palpitation no nausea or vomiting no abdominal pain no blood in the stools Panchal catheter is in since last Saturday due to urinary retention. At this time will check stools for C. diff, urine analysis to rule out urinary tract infection, consult wound care services for pressure area on the sacral area. Objective - Vital Signs Vital signs: Vital Signs Temp 97.8 F 10/18/20 10:40 Pulse 64 10/18/20 10:40 Resp 16 10/18/20 10:40 BP 119/68 10/18/20 10:40 Pulse Ox 97 10/18/20 10:40 Intake & Output 10/17/20 10/18/20 10/18/20 18:59 06:59 18:59 Output Total 1700 1825 Balance -1700 -1825 Output: Urine 1700 1825 Other: Voiding Method Indwelling Catheter # Bowel Movements 5 - Exam In general patient is alert and oriented 3 in no apparent distress HEENT head normocephalic and atraumatic Neck is supple no JVD no goiter no lymphadenopathy Chest exam reveals a few scattered rhonchi no wheezing Cardiac exam reveals regular heart sounds S1 and S2 no gallops no murmurs Abdomen is soft nontender no organomegaly was normal bowel sounds Extremity exam reveals no edema no cyanosis or clubbing Neurological examination reveals no gross focal deficits - Labs CBC & Chem 7: 10/19/20 06:38 10/19/20 06:38 Labs: Abnormal Lab Results - Last 24 Hours (Table) 10/17/20 10/17/20 Range/Units 10:39 19:00 Procalcitonin 0.17 H (0.02-0.09) ng/mL Urine Appearance Cloudy H (Clear) Ur Specific Irving 1.036 H (1.001-1.035) Urine Protein Trace H (Negative) Urine Blood Moderate H (Negative) Ur Leukocyte Esterase Large H (Negative) Urine RBC >182 H (0-5) /hpf Urine WBC 151 H (0-5) /hpf Calcium Oxalate Crystal Occasional H (None) /hpf Amorphous Sediment Occasional H (None) /hpf Urine Bacteria Occasional H (None) /hpf Urine Mucus Rare H (None) /hpf Microbiology - Last 24 Hours (Table) 10/17/20 20:13 Stool Culture - Preliminary Stool 10/17/20 19:00 Urine Culture - Preliminary Urine,Clean Catch Assessment and Plan Plan: 1. Covid 19 pneumonia, pulmonary consultation was requested patient was started on Decadron and Lovenox 2. Acute hypoxic respiratory failure requiring oxygen use currently she is on nasal cannula at 4 L 2. Diarrhea will check stools for C. diff 3. Recent surgery for hemorrhoids, will reconsult Dr. Alatorre for evaluation 4. Underlying history of scleroderma 5. Pressure area and the sacral area, will apply duoderm and consult wound care 6. Urinary Tract infection, will start patient on Rocephin IV, awaiting urine culture results Medication and labs were reviewed please see orders will follow in a.m.
--- NOTE | 2020-10-19 16:58 | P.PN ---
Subjective Progress Note Date: 10/19/20 Claribel Ruiz is a 75 -year-old female who presented to [facility] emergency room, as a transfer from [facility] emergency room with a chief complaint of worsening shortness of breath, patient was also seen by a visiting nurse at her home and her pulse ox was low at 76%, admitted [facility] her oxygen saturation was in the mid 80s, patient was also having low-grade fever, she had a chest x-ray at [facility] that showed bilateral pneumonia per report, patient was given a dose of cefepime and was transferred to [facility] emergency room. Patient was recently discharged from [facility] after being admitted for rectal pain, thrombosed external hemorrhoids with bedside procedure by Dr. Alatorre and questionable C. diff infection, patient had a positive antigen but negative toxin at [facility] prior to the previous admission, patient received oral vancomycin in that regard, she was discharged home she was home less than 48 hours before returning with worsening shortness of breath. Prior to that patient was admitted to [facility] with Covid 19 pneumonia she had a prolonged admission lasting for about 1 month, she was discharged on 09/20/2020. At this time patient is complaining of shortness of breath she is also complaining of diarrhea she is complaining of pain in the rectal area otherwise she denies any complaints there is no fever or chills no headache or dizziness no chest pain no palpitation no nausea or vomiting no abdominal pain no blood in the stools no burning with urination no frequency or urgency and no hematuria On 10/18/2020 patient was seen and examined on the medical floor she is alert and oriented 3 in no apparent distress she is complaining of diarrhea, she is complaining of pain in the sacral area, she is also complaining of shortness of breath with activity otherwise she denies any complaints there is no fever or chills no headache or dizziness no chest pain no cough no palpitation no nausea or vomiting no abdominal pain no blood in the stools Panchal catheter is in since last Saturday due to urinary retention. At this time will check stools for C. diff, urine analysis to rule out urinary tract infection, consult wound care services for pressure area on the sacral area. On 10/19/2020 patient was seen and examined on the medical floor she is alert and oriented 3 in no apparent distress she is still complaining of diarrhea will reorder a stool sample for C. diff, urine analysis revealed evidence of urinary tract infection and patient was started on IV Rocephin otherwise patient denies any complaints there is no fever or chills no headache or dizziness no chest pain no shortness of breath no cough no nausea or vomiting no abdominal pain no blood in the stools all the catheter is still in. At this time will request stool sample for C. diff PCR and consult urology in regard to urinary retention patient has a Panchal catheter since last Saturday Objective - Vital Signs Vital signs: Vital Signs Temp 98.3 F 10/19/20 14:12 Pulse 60 10/19/20 14:12 Resp 17 10/19/20 14:12 BP 115/63 10/19/20 14:12 Pulse Ox 91 L 10/19/20 14:12 Intake & Output 10/18/20 10/19/20 10/19/20 18:59 06:59 18:59 Output Total 1300 800 Balance -1300 -800 Output: Urine 1300 800 Other: Voiding Method Indwelling Catheter Indwelling Catheter # Bowel Movements 1 1 2 - Exam In general patient is alert and oriented 3 in no apparent distress HEENT head normocephalic and atraumatic Neck is supple no JVD no goiter no lymphadenopathy Chest exam reveals a few scattered rhonchi no wheezing Cardiac exam reveals regular heart sounds S1 and S2 no gallops no murmurs Abdomen is soft nontender no organomegaly was normal bowel sounds Extremity exam reveals no edema no cyanosis or clubbing Neurological examination reveals no gross focal deficits - Labs CBC & Chem 7: 10/19/20 06:38 10/19/20 06:38 Labs: Abnormal Lab Results - Last 24 Hours (Table) 10/19/20 Range/Units 06:38 WBC 12.1 H (3.8-10.6) k/uL Hgb 11.3 L (11.4-16.0) gm/dL MCHC 29.8 L (31.0-37.0) g/dL RDW 19.9 H (11.5-15.5) % Plt Count 512 H (150-450) k/uL Neutrophils # 9.3 H (1.3-7.7) k/uL Microbiology - Last 24 Hours (Table) 10/17/20 19:00 Urine Culture - Final Urine,Clean Catch Assessment and Plan Plan: 1. Covid 19 pneumonia, pulmonary consultation was requested patient was started on Decadron and Lovenox 2. Acute hypoxic respiratory failure requiring oxygen use currently she is on nasal cannula at 4 L 2. Diarrhea will check stools for C. diff 3. Recent surgery for hemorrhoids, will reconsult Dr. Alatorre for evaluation 4. Underlying history of scleroderma 5. Pressure area and the sacral area, will apply duoderm and consult wound care 6. Urinary Tract infection, will start patient on Rocephin IV, awaiting urine culture results Medication and labs were reviewed please see orders will follow in a.m.
[2020-10-19 18:07] LABS: African American GFR (CKD) 117.3 (60.0-200.0); Albumin 3.9 g/dL (3.80-4.90); Albumin/Globulin Ratio 2.17 (1.60-3.17); Anion Gap 14.4 mmol/L (4.00-12.00); BUN/Creat Ratio 32.5 Ratio (12.00-20.00); Calcium 9.2 mg/dL (8.7-10.3); Carbon Dioxide 21.6 mmol/L (21.6-31.8); Globulin 1.8 g/dL (1.6-3.3); Non-African American GFR(CKD) 101.2 (60.0-200.0); Total Bilirubin 0.3 mg/dL (0.3-1.2); Total Protein 5.7 g/dL (6.2-8.2)
[2020-10-19] MEDS: SODIUM CHLORIDE 0.9% 1,000 ML IV SCH (21:20)
[2020-10-19] MEDS: ENOXAPARIN 40 MG/0.4 ML SYRINGE SQ SCH (22:02)
[2020-10-19] MEDS: MORPHINE SULFATE ER 15 MG TABLET PO SCH (22:03)
[2020-10-19] MEDS: ATORVASTATIN 20 MG TAB PO SCH (22:04)
[2020-10-19] MEDS: MELATONIN 5 MG TABLET PO SCH (22:04)
[2020-10-20] MEDS: HYDROcodone/APAP 7.5-325MG 1 EACH TAB PO PRN ×3 (05:04→20:44)
[2020-10-20 07:30] LABS: Anisocytosis Slight; Basophils # (A) 0.1 k/uL (0-0.2); Basophils % (A) 1 %; Eosinophils # (A) 0.1 k/uL (0-0.7); Eosinophils % (A) 0 %; HCT 37.3 % (34.0-46.0); Hypochromasia Marked; Lymphocytes # (A) 1.4 k/uL (1.0-4.8); Lymphocytes % (A) 12 %; MCH 28.6 pg (25.0-35.0); MCHC 29.5 g/dL (31.0-37.0); MCV 96.9 fL (80.0-100.0); Macrocytosis Slight; Mean Platelet Volume 7.3; Monocytes % (A) 8 %; Neutrophils # (A) 9.2 k/uL (1.3-7.7); Neutrophils % (A) 77 %; Platelet Count 498 k/uL (150-450); RBC 3.85 m/uL (3.80-5.40); RDW 19.8 % (11.5-15.5)
[2020-10-20] MEDS: DEXAMETHASONE SOD PHOSPHATE 10 MG/ML 1 ML VIAL IV SCH (07:33)
[2020-10-20] MEDS: GABAPENTIN 100 MG CAP PO SCH ×2 (07:33→20:45)
[2020-10-20] MEDS: ASPIRIN 81 MG PO SCH (07:33)
[2020-10-20] MEDS: FAMOTIDINE 20 MG TAB PO SCH ×2 (07:33→17:07)
[2020-10-20] MEDS: METOPROLOL TARTRATE 12.5 MG TAB PO SCH ×2 (07:33→20:43)
[2020-10-20] MEDS: HYDROPHILIC CREAM 180 GM TUBE TOPICAL SCH (07:34)
[2020-10-20] MEDS: MECLIZINE 12.5 MG TAB PO SCH ×3 (07:34→20:46)
[2020-10-20] MEDS: NIFEdipine XL 30 MG TAB.ER.24 PO SCH ×2 (07:34→20:46)
[2020-10-20 09:47] LABS: African American GFR (CKD) 117.3 (60.0-200.0); Albumin 3.5 g/dL (3.80-4.90); Albumin/Globulin Ratio 2.19 (1.60-3.17); Calcium 9.2 mg/dL (8.7-10.3); Globulin 1.6 g/dL (1.6-3.3); Non-African American GFR(CKD) 101.2 (60.0-200.0); Potassium 4.6 mmol/L (3.5-5.5); Total Bilirubin 0.3 mg/dL (0.2-1.2); Total Protein 5.1 g/dL (6.2-8.2)
[2020-10-20] MEDS: HYDROCORTISONE SUPPOSITORY 25 MG SUPP RECTAL PRN (10:13)
--- NOTE | 2020-10-20 11:36 | P.PN ---
Subjective Progress Note Date: 10/20/20 CHIEF COMPLAINT: Shortness of breath HISTORY OF PRESENT ILLNESS: Patient is being followed for her upper abdominal pain and diarrhea. Her upper abdominal pain has resolved. Patient refused the HIDA scan. She is also reporting that her stools more pasty in consistency. She is followed by infectious disease for UTI and is on antibiotics. Wound care service is following for left gluteal ulceration. She states her rectal pain is improving. Patient is afebrile. WBC 12.1 and patient is on steroids. Has Panchal catheter in place for urinary retention. Stool for C. diff uncollected PHYSICAL EXAM: VITAL SIGNS: Reviewed. GENERAL: Well-developed in no acute distress. HEENT: No sclera icterus. Extraocular movements grossly intact. Moist buccal mucosa. Head is atraumatic, normocephalic. ABDOMEN: Soft. Nondistended. Nontender. NEUROLOGIC: Alert and oriented. Cranial nerves II through XII grossly intact. ASSESSMENT: 1. Upper Abdominal pain now resolved. Patient refused HIDA scan 2. Diarrhea improving 3. Thrombosed external hemorrhoid status post incision and drainage of thrombosed external hemorrhoid on 10/07/[address] Alatorre 4. Covid 19 pneumonia followed by pulmonary service 5. UTI PLAN: -Continue supportive care -No surgical intervention planned Physician Personnel Placement Specialist note has been reviewed by physician. Signing provider agrees with the documented findings, assessment, and plan of care. Objective - Vital Signs Vital signs: Vital Signs Temp 98.3 F 10/20/20 09:44 Pulse 57 L 10/20/20 09:44 Resp 17 10/20/20 09:44 BP 123/66 10/20/20 09:44 Pulse Ox 91 L 10/20/20 09:44 Intake & Output 10/19/20 10/20/20 10/20/20 18:59 06:59 18:59 Output Total 800 1300 Balance -800 -1300 Output: Urine 800 1300 Other: Voiding Method Indwelling Catheter Indwelling Catheter Indwelling Catheter # Bowel Movements 2 - Labs CBC & Chem 7: 10/20/20 06:04 10/20/20 06:04 Labs: Abnormal Lab Results - Last 24 Hours (Table) 10/19/20 10/20/20 10/20/20 Range/Units 06:38 06:04 06:04 WBC 12.0 H (3.8-10.6) k/uL Hgb 11.0 L (11.4-16.0) gm/dL MCHC 29.5 L (31.0-37.0) g/dL RDW 19.8 H (11.5-15.5) % Plt Count 498 H (150-450) k/uL Neutrophils # 9.2 H (1.3-7.7) k/uL Anion Gap 14.40 H (4.00-12.00) mmol/L Creatinine 0.4 L 0.4 L (0.6-1.5) mg/dL BUN/Creatinine Ratio 32.50 H 35.00 H (12.00-20.00) Ratio Total Protein 5.7 L 5.1 L (6.2-8.2) g/dL Albumin 3.50 L (3.80-4.90) g/dL
--- NOTE | 2020-10-20 12:07 | P.PN ---
Subjective Progress Note Date: 10/20/20 This is a very pleasant 75-year-old female patient seen on the regular medical floor. She is awake and alert resting comfortably in bed. Maintaining good O2 saturations in the 90s on 4 L/m per nasal cannula. she currently denies any worsening shortness of breath, cough or congestion. No fever, chills. urine culture reveals no growth. Stool culture reveals no growth. White count 12.0. Hemoglobin 11.0. Objective - Vital Signs Vital signs: Vital Signs Temp 98.3 F 10/20/20 09:44 Pulse 57 L 10/20/20 09:44 Resp 17 10/20/20 09:44 BP 123/66 10/20/20 09:44 Pulse Ox 91 L 10/20/20 09:44 Intake & Output 10/19/20 10/20/20 10/20/20 18:59 06:59 18:59 Output Total 800 1300 Balance -800 -1300 Output: Urine 800 1300 Other: Voiding Method Indwelling Catheter Indwelling Catheter Indwelling Catheter # Bowel Movements 2 - Exam GENERAL EXAM: Alert, pleasant 75-year-old female patient, on 4 L nasal cannula, comfortable in no apparent distress. HEAD: Normocephalic. EYES: Normal reaction of pupils, equal size. NOSE: Clear with pink turbinates. THROAT: No erythema or exudates. NECK: No masses, no JVD. CHEST: No chest wall deformity. LUNGS: Equal air entry with few scattered rhonchi. CVS: S1 and S2 normal with no audible murmur, regular rhythm. ABDOMEN: No hepatosplenomegaly, normal bowel sounds, no guarding or rigidity. SPINE: No scoliosis or deformity SKIN: No rashes CENTRAL NERVOUS SYSTEM: No focal deficits, tone is normal in all 4 extremities. EXTREMITIES: There is no peripheral edema. No clubbing, no cyanosis. Peripheral pulses are intact. - Labs CBC & Chem 7: 10/20/20 06:04 10/20/20 06:04 Labs: Abnormal Lab Results - Last 24 Hours (Table) 10/19/20 10/20/20 10/20/20 Range/Units 06:38 06:04 06:04 WBC 12.0 H (3.8-10.6) k/uL Hgb 11.0 L (11.4-16.0) gm/dL MCHC 29.5 L (31.0-37.0) g/dL RDW 19.8 H (11.5-15.5) % Plt Count 498 H (150-450) k/uL Neutrophils # 9.2 H (1.3-7.7) k/uL Anion Gap 14.40 H (4.00-12.00) mmol/L Creatinine 0.4 L 0.4 L (0.6-1.5) mg/dL BUN/Creatinine Ratio 32.50 H 35.00 H (12.00-20.00) Ratio Total Protein 5.7 L 5.1 L (6.2-8.2) g/dL Albumin 3.50 L (3.80-4.90) g/dL Assessment and Plan Assessment: 1 Acute on chronic hypoxic respiratory failure with previous admission for acute hypoxic respiratory failure secondary to community related pneumonia. She is currently doing better. Sitting up at the bedside. On 4 L nasal cannula. 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 Woo and She is stable from the pulmonary standpoint Continue the current treatment plan We'll continue to follow I, the cosigning physician, performed a history & physical examination of the patient. Lungs sounds few scattered rhonchi. Maintaining good O2 saturations in the 90s on 4 L/m per nasal cannula . I discussed the assessment and plan of care with my nurse practitioner, Marti Espinoza. I attest to the above note as dictated by her.
[2020-10-20] MEDS: SENNOSIDES-DOCUSATE SODIUM 1 EACH TAB PO SCH (13:34)
--- NOTE | 2020-10-20 17:38 | P.PN ---
Subjective Progress Note Date: 10/20/20 Claribel Ruiz is a 75 -year-old female who presented to [facility] emergency room, as a transfer from [facility] emergency room with a chief complaint of worsening shortness of breath, patient was also seen by a visiting nurse at her home and her pulse ox was low at 76%, admitted [facility] her oxygen saturation was in the mid 80s, patient was also having low-grade fever, she had a chest x-ray at [facility] that showed bilateral pneumonia per report, patient was given a dose of cefepime and was transferred to [facility] emergency room. Patient was recently discharged from [facility] after being admitted for rectal pain, thrombosed external hemorrhoids with bedside procedure by Dr. Alatorre and questionable C. diff infection, patient had a positive antigen but negative toxin at [facility] prior to the previous admission, patient received oral vancomycin in that regard, she was discharged home she was home less than 48 hours before returning with worsening shortness of breath. Prior to that patient was admitted to [facility] with Covid 19 pneumonia she had a prolonged admission lasting for about 1 month, she was discharged on 09/20/2020. At this time patient is complaining of shortness of breath she is also complaining of diarrhea she is complaining of pain in the rectal area otherwise she denies any complaints there is no fever or chills no headache or dizziness no chest pain no palpitation no nausea or vomiting no abdominal pain no blood in the stools no burning with urination no frequency or urgency and no hematuria On 10/18/2020 patient was seen and examined on the medical floor she is alert and oriented 3 in no apparent distress she is complaining of diarrhea, she is complaining of pain in the sacral area, she is also complaining of shortness of breath with activity otherwise she denies any complaints there is no fever or chills no headache or dizziness no chest pain no cough no palpitation no nausea or vomiting no abdominal pain no blood in the stools Panchal catheter is in since last Saturday due to urinary retention. At this time will check stools for C. diff, urine analysis to rule out urinary tract infection, consult wound care services for pressure area on the sacral area. On 10/19/2020 patient was seen and examined on the medical floor she is alert and oriented 3 in no apparent distress she is still complaining of diarrhea will reorder a stool sample for C. diff, urine analysis revealed evidence of urinary tract infection and patient was started on IV Rocephin otherwise patient denies any complaints there is no fever or chills no headache or dizziness no chest pain no shortness of breath no cough no nausea or vomiting no abdominal pain no blood in the stools all the catheter is still in. At this time will request stool sample for C. diff PCR and consult urology in regard to urinary retention patient has a Panchal catheter since last Saturday On 10/20/2020 patient was seen and examined on the medical floor she is alert and oriented 3 in no distress there is no fever or chills no headache or dizziness no chest pain no shortness of breath no cough no nausea or vomiting no abdominal pain, she still has mild diarrhea, no blood in the stools , Panchal catheter is still and no urinary symptoms. Objective - Vital Signs Vital signs: Vital Signs Temp 97.3 F L 10/20/20 05:00 Pulse 99 10/20/20 07:38 Resp 17 10/20/20 07:38 BP 137/72 10/20/20 05:00 Pulse Ox 96 10/20/20 05:00 Intake & Output 10/19/20 10/20/20 10/20/20 18:59 06:59 18:59 Output Total 800 1300 Balance -800 -1300 Output: Urine 800 1300 Other: Voiding Method Indwelling Catheter Indwelling Catheter Indwelling Catheter # Bowel Movements 2 - Exam In general patient is alert and oriented 3 in no apparent distress HEENT head normocephalic and atraumatic Neck is supple no JVD no goiter no lymphadenopathy Chest exam reveals a few scattered rhonchi no wheezing Cardiac exam reveals regular heart sounds S1 and S2 no gallops no murmurs Abdomen is soft nontender no organomegaly was normal bowel sounds Extremity exam reveals no edema no cyanosis or clubbing Neurological examination reveals no gross focal deficits - Labs CBC & Chem 7: 10/20/20 06:04 10/20/20 06:04 Labs: Abnormal Lab Results - Last 24 Hours (Table) 10/19/20 10/20/20 10/20/20 Range/Units 06:38 06:04 06:04 WBC 12.0 H (3.8-10.6) k/uL Hgb 11.0 L (11.4-16.0) gm/dL MCHC 29.5 L (31.0-37.0) g/dL RDW 19.8 H (11.5-15.5) % Plt Count 498 H (150-450) k/uL Neutrophils # 9.2 H (1.3-7.7) k/uL Anion Gap 14.40 H (4.00-12.00) mmol/L Creatinine 0.4 L 0.4 L (0.6-1.5) mg/dL BUN/Creatinine Ratio 32.50 H 35.00 H (12.00-20.00) Ratio Total Protein 5.7 L 5.1 L (6.2-8.2) g/dL Albumin 3.50 L (3.80-4.90) g/dL Assessment and Plan Plan: 1. Covid 19 pneumonia, pulmonary consultation was requested patient was started on Decadron and Lovenox 2. Acute hypoxic respiratory failure requiring oxygen use currently she is on nasal cannula at 4 L 2. Diarrhea will check stools for C. diff 3. Recent surgery for hemorrhoids, will reconsult Dr. Alatorre for evaluation 4. Underlying history of scleroderma 5. Pressure area and the sacral area, will apply duoderm and consult wound care 6. Urinary Tract infection, will start patient on Rocephin IV, awaiting urine culture results 7. Urinary retention patient has a Panchal catheter since last Saturday urology consultation requested Medication and labs were reviewed please see orders will follow in a.m.
[2020-10-20] MEDS: ATORVASTATIN 20 MG TAB PO SCH (20:43)
[2020-10-20] MEDS: MELATONIN 5 MG TABLET PO SCH (20:43)
[2020-10-20] MEDS: ENOXAPARIN 40 MG/0.4 ML SYRINGE SQ SCH (20:43)
[2020-10-20] MEDS: MORPHINE SULFATE ER 15 MG TABLET PO SCH (20:45)
[2020-10-20] MEDS: SODIUM CHLORIDE 0.9% 1,000 ML IV SCH (20:46)
--- NOTE | 2020-10-20 22:14 | PN ---
PROGRESS NOTE DATE OF SERVICE: 10/20/2020 REASON FOR FOLLOWUP: UTI and a question of pneumonia. INTERVAL HISTORY: The patient is currently afebrile. The patient mentioned that she is breathing more comfortably. The patient denies having any chest pain. She did have a cough; not bringing up any sputum. No nausea, no vomiting, no abdominal pain or diarrhea. PHYSICAL EXAMINATION: Her blood pressure 122/61 with a pulse of 72, temperature 98.3. She is 95% on 4 L nasal cannula. General description is an elderly female up in the bed in no distress. RESPIRATORY SYSTEM: Unlabored breathing with decreased intensity of breath sounds. No wheeze. HEART: S1, S2. Regular rate and rhythm. ABDOMEN: Soft. No tenderness. EXTREMITIES: No edema of the feet. LABS: So far urine culture has been negative. Blood culture not done. Stool studies are negative. DIAGNOSTIC IMPRESSION AND PLAN: Patient admitted to hospital with multiple symptoms, including difficulty with urination, and she did have a positive UA. There was concern about possible UTI. The patient currently in the form of Rocephin with clinical improvement. Culture has been negative. White count mildly elevated, more likely dexamethasone effect. We will monitor closely. Continue supportive care. MMODL / IJN: [id number] / JULIOCESAR
[2020-10-21] MEDS: FAMOTIDINE 20 MG TAB PO SCH ×2 (08:07→17:08)
[2020-10-21] MEDS: GABAPENTIN 100 MG CAP PO SCH ×2 (08:07→20:48)
[2020-10-21] MEDS: METOPROLOL TARTRATE 12.5 MG TAB PO SCH ×2 (08:07→20:49)
[2020-10-21] MEDS: ASPIRIN 81 MG PO SCH (08:07)
[2020-10-21] MEDS: DEXAMETHASONE SOD PHOSPHATE 10 MG/ML 1 ML VIAL IV SCH (08:07)
[2020-10-21] MEDS: HYDROcodone/APAP 7.5-325MG 1 EACH TAB PO PRN (08:08)
[2020-10-21] MEDS: MECLIZINE 12.5 MG TAB PO SCH ×3 (08:08→20:49)
[2020-10-21] MEDS: NIFEdipine XL 30 MG TAB.ER.24 PO SCH ×2 (08:08→20:49)
[2020-10-21 10:04] VITALS: BMI 21.5
--- NOTE | 2020-10-21 10:30 | P.PN ---
Subjective Progress Note Date: 10/21/20 Claribel Ruiz is a 75 -year-old female who presented to [facility] emergency room, as a transfer from [facility] emergency room with a chief complaint of worsening shortness of breath, patient was also seen by a visiting nurse at her home and her pulse ox was low at 76%, admitted [facility] her oxygen saturation was in the mid 80s, patient was also having low-grade fever, she had a chest x-ray at [facility] that showed bilateral pneumonia per report, patient was given a dose of cefepime and was transferred to [facility] emergency room. Patient was recently discharged from [facility] after being admitted for rectal pain, thrombosed external hemorrhoids with bedside procedure by Dr. Alatorre and questionable C. diff infection, patient had a positive antigen but negative toxin at [facility] prior to the previous admission, patient received oral vancomycin in that regard, she was discharged home she was home less than 48 hours before returning with worsening shortness of breath. Prior to that patient was admitted to [facility] with Covid 19 pneumonia she had a prolonged admission lasting for about 1 month, she was discharged on 09/20/2020. At this time patient is complaining of shortness of breath she is also complaining of diarrhea she is complaining of pain in the rectal area otherwise she denies any complaints there is no fever or chills no headache or dizziness no chest pain no palpitation no nausea or vomiting no abdominal pain no blood in the stools no burning with urination no frequency or urgency and no hematuria On 10/18/2020 patient was seen and examined on the medical floor she is alert and oriented 3 in no apparent distress she is complaining of diarrhea, she is complaining of pain in the sacral area, she is also complaining of shortness of breath with activity otherwise she denies any complaints there is no fever or chills no headache or dizziness no chest pain no cough no palpitation no nausea or vomiting no abdominal pain no blood in the stools Panchal catheter is in since last Saturday due to urinary retention. At this time will check stools for C. diff, urine analysis to rule out urinary tract infection, consult wound care services for pressure area on the sacral area. On 10/19/2020 patient was seen and examined on the medical floor she is alert and oriented 3 in no apparent distress she is still complaining of diarrhea will reorder a stool sample for C. diff, urine analysis revealed evidence of urinary tract infection and patient was started on IV Rocephin otherwise patient denies any complaints there is no fever or chills no headache or dizziness no chest pain no shortness of breath no cough no nausea or vomiting no abdominal pain no blood in the stools all the catheter is still in. At this time will request stool sample for C. diff PCR and consult urology in regard to urinary retention patient has a Panchal catheter since last Saturday On 10/20/2020 patient was seen and examined on the medical floor she is alert and oriented 3 in no distress there is no fever or chills no headache or dizziness no chest pain no shortness of breath no cough no nausea or vomiting no abdominal pain, she still has mild diarrhea, no blood in the stools , Panchal catheter is still and no urinary symptoms. On 10/21/2020 patient was seen and examined on the medical floor she is alert and oriented 3 in no distress there is no fever or chills no headache or dizziness no chest pain no shortness of breath no cough no nausea or vomiting no abdominal pain no diarrhea no burning with urination no frequency or urgency and no hematuria. Was seen by urology Panchal catheter was removed currently we are monitoring her bladder function, plan is to transfer patient to [facility] tomorrow if she is able to urinate. Patient is requesting to talk to a social studies teacher in regard to her discharge planning, she stated that she has no cloth and her family lives 60 miles away and are and able to help her at this time Objective - Vital Signs Vital signs: Vital Signs Temp 97.8 F 10/21/20 07:09 Pulse 56 L 10/21/20 08:13 Resp 20 10/21/20 08:13 BP 154/77 10/21/20 07:09 Pulse Ox 100 10/21/20 07:09 Intake & Output 10/20/20 10/21/20 10/21/20 18:59 06:59 18:59 Intake Total 100 720 Output Total 800 486 Balance -700 234 Intake: Intake, IV Titration 100 240 Amount Sodium Chloride 0.9% 1, 240 000 ml @ 20 mls/hr IV . Q24H [facility] Rx#:[id number] cefTRIAXone 1 gm In 100 Sodium Chloride 0.9% 50 ml @ 100 mls/hr IVPB Q24HR [facility] Rx#:[id number] Oral 480 Output: Urine 800 Post Void Residual 486 Other: Voiding Method Indwelling Catheter Diaper # Voids 3 # Bowel Movements 2 - Exam In general patient is alert and oriented 3 in no apparent distress HEENT head normocephalic and atraumatic Neck is supple no JVD no goiter no lymphadenopathy Chest exam reveals a few scattered rhonchi no wheezing Cardiac exam reveals regular heart sounds S1 and S2 no gallops no murmurs Abdomen is soft nontender no organomegaly was normal bowel sounds Extremity exam reveals no edema no cyanosis or clubbing Neurological examination reveals no gross focal deficits - Labs CBC & Chem 7: 10/20/20 06:04 10/20/20 06:04 Labs: Abnormal Lab Results - Last 24 Hours (Table) 10/20/20 Range/Units 06:04 Creatinine 0.4 L (0.6-1.5) mg/dL BUN/Creatinine Ratio 35.00 H (12.00-20.00) Ratio Total Protein 5.1 L (6.2-8.2) g/dL Albumin 3.50 L (3.80-4.90) g/dL Assessment and Plan Plan: 1. Covid 19 pneumonia, pulmonary consultation was requested patient was started on Decadron and Lovenox 2. Acute hypoxic respiratory failure requiring oxygen use currently she is on nasal cannula at 4 L 2. Diarrhea will check stools for C. diff 3. Recent surgery for hemorrhoids, will reconsult Dr. Alatorre for evaluation 4. Underlying history of scleroderma 5. Pressure area and the sacral area, will apply duoderm and consult wound care 6. Urinary Tract infection, will start patient on Rocephin IV, awaiting urine culture results 7. Urinary retention patient has a Panchal catheter since last Saturday urology consultation requested Medication and labs were reviewed please see orders will follow in a.m.
[2020-10-21] MEDS: HYDROCORTISONE SUPPOSITORY 25 MG SUPP RECTAL PRN (13:29)
[2020-10-21] MEDS: SENNOSIDES-DOCUSATE SODIUM 1 EACH TAB PO SCH (13:29)
[2020-10-21] MEDS: HYDROPHILIC CREAM 180 GM TUBE TOPICAL SCH (13:48)
--- NOTE | 2020-10-21 13:53 | P.PN ---
Subjective Progress Note Date: 10/21/20 75-year-old female patient was transferred from [facility] because of worsening shortness of breath and worsening hypoxemia. The patient is known to me from previous hospitalization. The patient was being checked by visiting nurse and she was found to be quite hypoxic and the pulse ox was down to 76% at home. I'm not sure if she was wearing oxygen at that time or not. Based on that, she got transferred initially to [facility] and subsequently the patient was transferred to us for further care. No reported copy no significant sputum production. She has exertional dyspnea and sometimes dyspnea at rest. The patient's white cell count of 10.2. The patient's hemoglobin is 11.7. The patient continued to have some lymphopenia with a lymphocyte count of 0.5. D- dimer is 1.26. Creatinine is at 0.33. Inflammatory markers have not been obtained. At that point, and I compared it to the earlier CAT scan that was done on the same patient on 09/11/2020. The CAT scan showed satisfactory enhancement of the pulmonary arteries and there was no evidence of any pulmonary embolism. There was small bilateral pleural effusions that was new onset. There was some background reticular and fibrotic changes in the mid and lower lung torres bilaterally in addition to some areas of multifocal areas of groundglass opacity with interlobular septal thickening most prominent in the lo wer lobes. In comparison, there was some interval progression compared to 09/13/2020. There are areas of organizing consolidation bilaterally. No evidence of any pneumothorax. Note that the patient was diagnosed and treated for covid19 infection back in August 2020. At that time, the patient was requiring high flow oxygen. I think she was briefly placed on BiPAP. During the course of his treatment, the patient received convalescent plasma and she also received Remdesivir. The patient was also treated with steroids and ultimately she was discharged home. Note that the time of discharge, the patient was still having bilateral lower lobe pulmonary infiltrates/consolidation. She is known also to have scleroderma along with Raynaud's syndrome and hypertension. The echo of the heart shows no significant pulmonary hypertension. There is mild elevation of the PA pressure of 43. Left ventricle ejection fraction has been within normal limits. Note that following her discharge from the hospital, the patient was readmitted to the hospital for rectal pain with evidence of proctitis and she underwent a incision and drainage of a thrombosed external hemorrhoids. On today's evaluation of 10/18/2020, the patient remains on 4 L of oxygen by nasal cannula. No worsening in her breathing compared to yesterday. In fact she feels she is doing slightly better in terms of her breathing. She does have coarse crackles in lung bases bilaterally. Meanwhile, there is a concern for an underlying UTI. She still has a Panchal catheter in place. UA was done and was quite abnormal and the patient was started on IV Rocephin. I have her back on Decadron 6 mg IV every 24 hours and she is also on IV Rocephin On 10/19/2020 patient seen in follow-up on the general medical surgical floor, no worsening dyspnea, she remains on 4 L of oxygen per pulse ox is 92-93%, she's been afebrile, hemodynamically she is been stable, denies any worsening congestion, occasional cough, no chest pain, no hemoptysis, remains on Rocephin for urinary tract infection, urine culture has been negative, no altered mentation. His labs have been reviewed showing white blood cell count of 12.1, hemoglobin is 11.3, platelet count is 512. No acute events overnight, she is getting ready to get up out of bed with therapy this afternoon. Tolerating oral intake, no nausea. On 10/21/2020 patient seen in follow-up on medical floor, breathing comfortably, no worsening dyspnea, she is currently on 4 L of oxygen the pulse ox of 97-100%, no fever or chills, denies any chest pain, denies any chest congestion, only occasional cough, no palpitations. She remains on Rocephin for urinary tract infection, she has had no fever or chills, altered mentation. She keeps complaining about sensation of having to go to the bathroom and sensation of constipation. Apparently patient has hemorrhoids, and she has been getting Anusol cream, and according to the nurse she has been having frequent liquid stools. Patient continues on MiraLAX on a regular basis. His labs have been reviewed, showing white blood cell count of 12, hemoglobin is 12, electrolytes are within normal limits, BUN is 14 creatinine 0.4. Stool and urine cultures have been negative Objective - Vital Signs Vital signs: Vital Signs Temp 97.8 F 10/21/20 07:09 Pulse 56 L 10/21/20 08:13 Resp 20 10/21/20 08:13 BP 154/77 10/21/20 07:09 Pulse Ox 100 10/21/20 07:09 Intake & Output 10/20/20 10/21/20 10/21/20 18:59 06:59 18:59 Intake Total 100 720 Output Total 800 486 Balance -700 234 Weight 68.039 kg Intake: Intake, IV Titration 100 240 Amount Sodium Chloride 0.9% 1, 240 000 ml @ 20 mls/hr IV . Q24H [facility] Rx#:[id number] cefTRIAXone 1 gm In 100 Sodium Chloride 0.9% 50 ml @ 100 mls/hr IVPB Q24HR [facility] Rx#:[id number] Oral 480 Output: Urine 800 Post Void Residual 486 Other: Voiding Method Indwelling Catheter Diaper # Voids 3 # Bowel Movements 2 - Exam GENERAL EXAM: Alert, 75-year-old white female, on 4 L of oxygen with a pulse ox of 100% comfortable in no apparent distress. HEAD: Normocephalic/atraumatic. EYES: Normal reaction of pupils, equal size. Conjunctiva pink, sclera white. NOSE: Clear with pink turbinates. THROAT: No erythema or exudates. NECK: No masses, no JVD, no thyroid enlargement, no adenopathy. CHEST: No chest wall deformity. Symmetrical expansion. LUNGS: Equal air entry with Coarse crackles at the right lower base, and minimal fine crackles at the left base CVS: Regular rate and rhythm, normal S1 and S2, no gallops, no murmurs, no rubs ABDOMEN: Soft, nontender. No hepatosplenomegaly, normal bowel sounds, no guarding or rigidity. EXTREMITIES: No clubbing, no edema, no cyanosis, 2+ pulses and upper and lower extremities. MUSCULOSKELETAL: Muscle strength and tone normal. SPINE: No scoliosis or deformity SKIN: No rashes CENTRAL NERVOUS SYSTEM: Alert and oriented -3. No focal deficits, tone is normal in all 4 extremities. PSYCHIATRIC: Alert and oriented -3. Appropriate affect. Intact judgment and insight. - Labs CBC & Chem 7: 10/20/20 06:04 10/20/20 06:04 Assessment and Plan Plan: Assessment: #1. acute on chronic hypoxic respiratory failure. The patient was hospitalized in late July and August for acute hypoxic respiratory failure secondary to community related pneumonia. The patient clinically improved and the patient was discharged home with home oxygen. Her symptoms got worse since and the patient comes back to the hospital with oxygen 4 L per minute nasal cannula. CT angiogram showed no evidence of any pulmonary embolism. There is some worsening in the pulmonary infiltrates bilaterally. Consider superinfection. Consider progression of the prado virus19 inflammatory changes post weaning of the systemic steroids. Note that the patient has been chronically immunosuppressed with CellCept. The patient completed a prednisone burst taper at time of discharge from the hospital. For now, the patient is back on Decadron 6 mg IV every 24 hours. Outpatient medications of been all resumed. The CellCept was placed on hold. A procalcitonin level was done and was at 0.17, considered to be low #2. systemic sclerosis maintained on CellCept and prednisone #3. chronic lower lobe pulmonary fibrosis #4. [id number] pulmonary hypertension, secondary nature #5. long-term immunosuppression with a combination of CellCept and prednisone #6. hyperlipidemia #7. osteoarthritis #8. suspected UTI currently on IV Rocephin, Urine culture showed no growth #9. Hemorrhoids Plan: From pulmonary perspective patient has remained stable, no worsening dyspnea, continue weaning FiO2. Continue Decadron, prophylactic dose of Lovenox, she stable from pulmonary perspective, she could be considered for discharge to [facility] from pulmonary perspective if cleared by medicine I performed a history & physical examination of the patient and discussed their management with my nurse practitioner, Teagan Ceron. I reviewed the nurse practitioner's note and agree with the documented findings and plan of care. Lung sounds are positive for Crackles, greater on the right. The findings and the impression was discussed with the patient. I attest to the documentation by the nurse practitioner. Time with Patient: Less than 30
--- NOTE | 2020-10-21 13:56 | P.PN ---
Subjective Progress Note Date: 10/21/20 CHIEF COMPLAINT: Shortness of breath HISTORY OF PRESENT ILLNESS: Patient is being followed for her upper abdominal pain and diarrhea. Her upper abdominal pain has resolved. Patient refused the HIDA scan. She is having formed stool. She does complain of rectal pain and buttocks pain however it is improving since admission. She is followed by infectious disease for UTI and is on antibiotics. Wound care service is following for left gluteal ulceration. Patient is afebrile. WBC 12.1 and patient is on steroids. Has Panchal catheter in place for urinary retention. Stool for C. diff uncollected PHYSICAL EXAM: VITAL SIGNS: Reviewed. GENERAL: Well-developed in no acute distress. HEENT: No sclera icterus. Extraocular movements grossly intact. Moist buccal mucosa. Head is atraumatic, normocephalic. ABDOMEN: Soft. Nondistended. Nontender. NEUROLOGIC: Alert and oriented. Cranial nerves II through XII grossly intact. ASSESSMENT: 1. Upper Abdominal pain now resolved. Patient refused HIDA scan 2. Diarrhea improved 3. Thrombosed external hemorrhoid status post incision and drainage of thrombosed external hemorrhoid on 10/07/[address] Alatorre 4. Covid 19 pneumonia followed by pulmonary service 5. UTI PLAN: -Continue supportive care -No surgical intervention planned Physician [employer] Operator note has been reviewed by physician. Signing provider agrees with the documented findings, assessment, and plan of care. Objective - Vital Signs Vital signs: Vital Signs Temp 97.8 F 10/21/20 07:09 Pulse 56 L 10/21/20 08:13 Resp 20 10/21/20 08:13 BP 154/77 10/21/20 07:09 Pulse Ox 100 10/21/20 07:09 Intake & Output 10/20/20 10/21/20 10/21/20 18:59 06:59 18:59 Intake Total 100 720 Output Total 800 486 Balance -700 234 Weight 68.039 kg Intake: Intake, IV Titration 100 240 Amount Sodium Chloride 0.9% 1, 240 000 ml @ 20 mls/hr IV . Q24H [facility] Rx#:[id number] cefTRIAXone 1 gm In 100 Sodium Chloride 0.9% 50 ml @ 100 mls/hr IVPB Q24HR [facility] Rx#:[id number] Oral 480 Output: Urine 800 Post Void Residual 486 Other: Voiding Method Indwelling Catheter Diaper # Voids 3 # Bowel Movements 2 - Labs CBC & Chem 7: 10/20/20 06:04 10/20/20 06:04
--- NOTE | 2020-10-21 17:40 | PN ---
PROGRESS NOTE DATE OF SERVICE: 10/21/2020 REASON FOR FOLLOWUP: UTI and question of pneumonia. INTERVAL HISTORY: The patient is currently afebrile. The patient is breathing more comfortably. Denies having any chest pain. She did have a cough, not bringing up any sputum. No nausea, no vomiting, no abdominal pain or diarrhea. PHYSICAL EXAMINATION: Blood pressure 136/70 with a pulse of 66, temperature 98.1. She is 95% on 4 L nasal cannula. General description is an elderly female up in the chair in no distress. RESPIRATORY SYSTEM: Unlabored breathing with decreased intensity of breath sounds. No wheeze. HEART: S1, S2. Regular rate and rhythm. ABDOMEN: Soft. No tenderness. LABS: Hemoglobin is 11, white count 12.0. Creatinine 0.4. DIAGNOSTIC IMPRESSION AND PLAN: Patient admitted to hospital with multiple symptoms including urinary retention. Did have a positive UA with concern for a UTI. Urine culture has been negative. The patient is currently on Rocephin; to continue. Monitor clinical response and monitor clinical course closely. MMODL / DENILSONN: [id number] / MTDD
--- NOTE | 2020-10-21 19:22 | P.PN ---
Progress Note - Text Progress Note Date: 10/21/20 The patient's Panchal catheter was removed yesterday. She reports significant hemorrhoid pain. She experienced difficulty voiding overnight, and bladder scan showed a bladder volume of approximately 300 mL (per patient). However, she was ultimately able to void and today is voiding without difficulty. It is my impression that her voiding difficulties relate to her hemorrhoid pain, and I am hopeful that replacement of the Panchal catheter will be unnecessary. She is to be transferred to [facility] tomorrow.
[2020-10-21] MEDS: ATORVASTATIN 20 MG TAB PO SCH (20:48)
[2020-10-21] MEDS: MORPHINE SULFATE ER 15 MG TABLET PO SCH (20:49)
[2020-10-21] MEDS: MELATONIN 5 MG TABLET PO SCH (20:49)
[2020-10-21] MEDS: ENOXAPARIN 40 MG/0.4 ML SYRINGE SQ SCH (20:58)
[2020-10-21] MEDS: SODIUM CHLORIDE 0.9% 1,000 ML IV SCH (20:59)
[2020-10-22 07:05] LABS: Anisocytosis Slight; Basophils # (A) 0.1 k/uL (0-0.2); Basophils % (A) 1 %; Eosinophils # (A) 0.1 k/uL (0-0.7); Eosinophils % (A) 1 %; HCT 38.3 % (34.0-46.0); HGB 11.3 gm/dL (11.4-16.0); Hypochromasia Marked; Lymphocytes # (A) 2.4 k/uL (1.0-4.8); Lymphocytes % (A) 17 %; MCH 28.5 pg (25.0-35.0); MCHC 29.6 g/dL (31.0-37.0); MCV 96.2 fL (80.0-100.0); Macrocytosis Slight; Mean Platelet Volume 7.2; Monocytes # (A) 1.3 k/uL (0-1.0); Monocytes % (A) 9 %; Neutrophils % (A) 70 %; Platelet Count 526 k/uL (150-450); RBC 3.98 m/uL (3.80-5.40); RDW 19.4 % (11.5-15.5); WBC 14.3 k/uL (3.8-10.6)
[2020-10-22] MEDS: METOPROLOL TARTRATE 12.5 MG TAB PO SCH (07:48)
[2020-10-22] MEDS: DEXAMETHASONE SOD PHOSPHATE 10 MG/ML 1 ML VIAL IV SCH ×2 (07:48→10:50)
[2020-10-22] MEDS: ASPIRIN 81 MG PO SCH (07:48)
[2020-10-22] MEDS: FAMOTIDINE 20 MG TAB PO SCH (07:49)
[2020-10-22] MEDS: HYDROcodone/APAP 7.5-325MG 1 EACH TAB PO PRN (07:49)
[2020-10-22] MEDS: MECLIZINE 12.5 MG TAB PO SCH ×2 (07:50→12:15)
[2020-10-22] MEDS: NIFEdipine XL 30 MG TAB.ER.24 PO SCH (07:50)
[2020-10-22] MEDS: GABAPENTIN 100 MG CAP PO SCH (07:50)
[2020-10-22] MEDS: HYDROPHILIC CREAM 180 GM TUBE TOPICAL SCH (07:51)
[2020-10-22 08:10] VITALS: BP 128/68; PULSE 68; RESP 19; TEMP 97.7
[2020-10-22 09:39] LABS: African American GFR (CKD) 117.3 (60.0-200.0); Albumin 3.9 g/dL (3.80-4.90); Albumin/Globulin Ratio 2.79 (1.60-3.17); Anion Gap 8.4 mmol/L (4.00-12.00); Calcium 9.4 mg/dL (8.7-10.3); Carbon Dioxide 25.6 mmol/L (21.6-31.8); Globulin 1.4 g/dL (1.6-3.3); Non-African American GFR(CKD) 101.2 (60.0-200.0); Potassium 4.7 mmol/L (3.5-5.5); Total Bilirubin 0.4 mg/dL (0.3-1.2); Total Protein 5.3 g/dL (6.2-8.2)
--- NOTE | 2020-10-22 10:57 | P.PN ---
Subjective Progress Note Date: 10/22/20 75-year-old female patient was transferred from [facility] because of worsening shortness of breath and worsening hypoxemia. The patient is known to me from previous hospitalization. The patient was being checked by visiting nurse and she was found to be quite hypoxic and the pulse ox was down to 76% at home. I'm not sure if she was wearing oxygen at that time or not. Based on that, she got transferred initially to [facility] and subsequently the patient was transferred to us for further care. No reported copy no significant sputum production. She has exertional dyspnea and sometimes dyspnea at rest. The patient's white cell count of 10.2. The patient's hemoglobin is 11.7. The patient continued to have some lymphopenia with a lymphocyte count of 0.5. D- dimer is 1.26. Creatinine is at 0.33. Inflammatory markers have not been obtained. At that point, and I compared it to the earlier CAT scan that was done on the same patient on 09/11/2020. The CAT scan showed satisfactory enhancement of the pulmonary arteries and there was no evidence of any pulmonary embolism. There was small bilateral pleural effusions that was new onset. There was some background reticular and fibrotic changes in the mid and lower lung torres bilaterally in addition to some areas of multifocal areas of groundglass opacity with interlobular septal thickening most prominent in the lower lobes. In comparison, there was some interval progression compared to 09/13/2020. There are areas of organizing consolidation bilaterally. No evidence of any pneumothorax. Note that the patient was diagnosed and treated for covid19 infection back in August 2020. At that time, the patient was requiring high flow oxygen. I think she was briefly placed on BiPAP. During the course of his treatment, the patient received convalescent plasma and she also received Remdesivir. The patient was also treated with steroids and ultimately she was discharged home. Note that the time of discharge, the patient was still having bilateral lower lobe pulmonary infiltrates/consolidation. She is known also to have scleroderma along with Raynaud's syndrome and hypertension. The echo of the heart shows no significant pulmonary hypertension. There is mild elevation of the PA pressure of 43. Left ventricle ejection fraction has been within normal limits. Note that following her discharge from the hospital, the patient was readmitted to the hospital for rectal pain with evidence of proctitis and she underwent a incision and drainage of a thrombosed external hemorrhoids. On today's evaluation of 10/18/2020, the patient remains on 4 L of oxygen by nasal cannula. No worsening in her breathing compared to yesterday. In fact she feels she is doing slightly better in terms of her breathing. She does have coarse crackles in lung bases bilaterally. Meanwhile, there is a concern for an underlying UTI. She still has a Panchal catheter in place. UA was done and was quite abnormal and the patient was started on IV Rocephin. I have her back on Decadron 6 mg IV every 24 hours and she is also on IV Rocephin On 10/19/2020 patient seen in follow-up on the general medical surgical floor, no worsening dyspnea, she remains on 4 L of oxygen per pulse ox is 92-93%, she's been afebrile, hemodynamically she is been stable, denies any worsening congestion, occasional cough, no chest pain, no hemoptysis, remains on Rocephin for urinary tract infection, urine culture has been negative, no altered mentation. His labs have been reviewed showing white blood cell count of 12.1, hemoglobin is 11.3, platelet count is 512. No acute events overnight, she is getting ready to get up out of bed with therapy this afternoon. Tolerating oral intake, no nausea. On 10/21/2020 patient seen in follow-up on medical floor, breathing comfortably, no worsening dyspnea, she is currently on 4 L of oxygen the pulse ox of 97-100%, no fever or chills, denies any chest pain, denies any chest congestion, only occasional cough, no palpitations. She remains on Rocephin for urinary tract infection, she has had no fever or chills, altered mentation. She keeps complaining about sensation of having to go to the bathroom and sensation of constipation. Apparently patient has hemorrhoids, and she has been getting Anusol cream, and according to the nurse she has been having frequent liquid stools. Patient continues on MiraLAX on a regular basis. His labs have been reviewed, showing white blood cell count of 12, hemoglobin is 12, electrolytes are within normal limits, BUN is 14 creatinine 0.4. Stool and urine cultures have been negative 10/22/2020, the patient's pulmonary status is stable and she is currently on 2 L of oxygen by nasal cannula. No signs of respiratory distress. She remains on Rocephin regarding UTI. She is complaining of rectal pain related to her hemorrhoids and she is getting Anusol cream along with some barrier creams. She is tolerating her diet. No nausea vomiting or diarrhea or abdominal pain. No chest pain.Her labs are all within normal limits. Renal function stable. The electrolytes all stable. The patient has a white cell count of 14.3 with a hemo globin of 11.3. Platelet count is also stable at 526. Objective - Vital Signs Vital signs: Vital Signs Temp 97.7 F 10/22/20 08:00 Pulse 68 10/22/20 08:00 Resp 19 10/22/20 08:00 BP 128/68 10/22/20 08:00 Pulse Ox 92 L 10/22/20 08:00 Intake & Output 10/21/20 10/22/20 10/22/20 18:59 06:59 18:59 Intake Total 600 Output Total 1400 Balance -800 Weight 68.039 kg Intake: Oral 600 Output: Urine 1400 Other: Voiding Method Diaper # Voids 1 1 # Bowel Movements 1 1 - Exam GENERAL EXAM: Alert, pleasant,frail 74-year-old female patient, on 2 liter of oxygen by nasal cannula, HEAD: Normocephalic. EYES: Normal reaction of pupils, equal size. NOSE: Clear with pink turbinates. THROAT: No erythema or exudates. NECK: No masses, no JVD. CHEST: No chest wall deformity. LUNGS: Equal air entry with basilar crackles, few scattered rhonchi, diminished CVS: S1 and S2 normal with no audible murmur, regular rhythm. ABDOMEN: No hepatosplenomegaly, normal bowel sounds, no guarding or rigidity. SPINE: No scoliosis or deformity SKIN: No rashes, skin changes consistent with scleroderma CENTRAL NERVOUS SYSTEM: No focal deficits, tone is normal in all 4 extremities. EXTREMITIES: There is no peripheral edema. No clubbing, no cyanosis. Peripheral pulses are intact. - Labs CBC & Chem 7: 10/22/20 06:10 10/22/20 06:10 Labs: Abnormal Lab Results - Last 24 Hours (Table) 10/22/20 10/22/20 Range/Units 06:10 06:10 WBC 14.3 H (3.8-10.6) k/uL Hgb 11.3 L (11.4-16.0) gm/dL MCHC 29.6 L (31.0-37.0) g/dL RDW 19.4 H (11.5-15.5) % Plt Count 526 H (150-450) k/uL Neutrophils # 10.0 H (1.3-7.7) k/uL Monocytes # 1.3 H (0-1.0) k/uL Creatinine 0.4 L (0.6-1.5) mg/dL BUN/Creatinine Ratio 40.00 H (12.00-20.00) Ratio ALT 48 H (8-44) U/L Total Protein 5.3 L (6.2-8.2) g/dL Globulin 1.4 L (1.6-3.3) g/dL Assessment and Plan Plan: 1 acute on chronic hypoxic respiratory failure. The patient was hospitalized in late July and August for acute hypoxic respiratory failure secondary to community related pneumonia. The patient clinically improved and the patient was discharged home with home oxygen. Her symptoms got worse since and the patient comes back to the hospital with oxygen 4 L per minute nasal cannula. CT angiogram showed no evidence of any pulmonary embolism. There is some worsening in the pulmonary infiltrates bilaterally. Consider superinfection. Consider progression of the prado virus19 inflammatory changes post weaning of the systemic steroids. Note that the patient has been chronically immunosuppressed with CellCept. The patient completed a prednisone burst taper at time of discharge from the hospital. For now, the patient is back on Decadron 6 mg IV every 24 hours. He improved and currently she is down to 2 L of oxygen by nasal cannula. No signs of respiratory distress this point in time. She is also back on her 2 systemic sclerosis maintained on CellCept and prednisone 3 chronic lower lobe pulmonary fibrosis 4 [id number] pulmonary hypertension, secondary nature 5 long-term immunosuppression with a combination of CellCept and prednisone 6 hyperlipidemia 7 osteoarthritis 8 suspected UTI currently on IV Rocephin 9 rectal pain related to hemorrhoids Plan Continue IV Rocephine Data total of 10 day course of Decadron 6 mg Continue CellCept for now Wean down the FiO2 to maintain a saturation above 90% and currently the patient is on 2 L of oxygen by nasal cannula Treatment of her hemorrhoids Overall pulmonary status is stable
--- NOTE | 2020-10-22 11:08 | P.PN ---
Progress Note - Text Progress Note Date: 10/22/20 The patient reports urinary incontinence but is voiding without difficulty. She continues to report hemorrhoids pain. She may benefit from reevaluation by General Surgery.
[2020-10-22] MEDS ORDERED: HYDROCORTISONE 2.5% RECTAL CREAM 30 GM TUBE RECTAL SCH (11:30)
--- NOTE | 2020-10-22 11:35 | P.DS ---
Providers Date of admission: 10/16/20 18:44 Expected date of discharge: 10/22/20 Attending physician: Akbar Swenson Consults: 10/16/20 18:13 Consult Physician Routine Consulting Provider: Sara Ortez Consult Reason/Comments: covid pneumonia with hypoxemia Do you want consulting provider notified?: Yes 10/17/20 18:35 Consult Physician Routine Consulting Provider: Andrade Alatorre Consult Reason/Comments: diarrhea Do you want consulting provider notified?: Yes 10/18/20 09:05 Consult Physician Routine Consulting Provider: Liam Wallace Consult Reason/Comments: UTI, COVID pneumonia Do you want consulting provider notified?: Yes 10/19/20 16:46 Consult Physician Routine Consulting Provider: Rafat Varela Consult Reason/Comments: urinary retention Do you want consulting provider notified?: Yes Primary care physician: Darcy [facility] Course: Diagnosis on discharge: 1. Covid 19 pneumonia, pulmonary consultation was requested patient was started on Decadron and Lovenox 2. Acute hypoxic respiratory failure requiring oxygen use currently she is on nasal cannula at 4 L 2. Diarrhea will check stools for C. diff 3. Recent surgery for hemorrhoids, will reconsult Dr. Alatorre for evaluation 4. Underlying history of scleroderma 5. Pressure area and the sacral area, will apply duoderm and consult wound care 6. Urinary Tract infection, will start patient on Rocephin IV, awaiting urine culture results 7. Urinary retention patient has a Panchal catheter since last Saturday urology consultation requested Hospital course: Claribel Ruiz is a 75 -year-old female who presented to [facility] emergency room, as a transfer from [facility] emergency room with a chief complaint of worsening shortness of breath, patient was also seen by a visiting nurse at her home and her pulse ox was low at 76%, admitted [facility] her oxygen saturation was in the mid 80s, patient was also having low-grade fever, she had a chest x-ray at [facility] that showed bilateral pneumonia per report, patient was given a dose of cefepime and was transferred to [facility] emergency room. Patient was recently discharged from [facility] after being admitted for rectal pain, thrombosed external hemorrhoids with bedside procedure by Dr. Alatorre and questionable C. diff infection, patient had a positive antigen but negative toxin at [facility] prior to the previous admission, patient received oral vancomycin in that regard, she was discharged home she was home less than 48 hours before returning with worsening shortness of breath. Prior to that patient was admitted to [facility] with Covid 19 pneumonia she had a prolonged admission lasting for about 1 month, she was discharged on 09/20/2020. At this time patient is complaining of shortness of breath she is also complaining of diarrhea she is complaining of pain in the rectal area otherwise she denies any complaints there is no fever or chills no headache or dizziness no chest pain no palpitation no nausea or vomiting no abdominal pain no blood in the stools no burning with urination no frequency or urgency and no hematuria On 10/18/2020 patient was seen and examined on the medical floor she is alert and oriented 3 in no apparent distress she is complaining of diarrhea, she is complaining of pain in the sacral area, she is also complaining of shortness of breath with activity otherwise she denies any complaints there is no fever or chills no headache or dizziness no chest pain no cough no palpitation no nausea or vomiting no abdominal pain no blood in the stools Panchal catheter is in since last Saturday due to urinary retention. At this time will check stools for C. diff, urine analysis to rule out urinary tract infection, consult wound care services for pressure area on the sacral area. On 10/19/2020 patient was seen and examined on the medical floor she is alert and oriented 3 in no apparent distress she is still complaining of diarrhea will reorder a stool sample for C. diff, urine analysis revealed evidence of urinary tract infection and patient was started on IV Rocephin otherwise patient denies any complaints there is no fever or chills no headache or dizziness no chest pain no shortness of breath no cough no nausea or vomiting no abdominal pain no blood in the stools all the catheter is still in. At this time will request stool sample for C. diff PCR and consult urology in regard to urinary retention patient has a Panchal catheter since last Saturday On 10/20/2020 patient was seen and examined on the medical floor she is alert and oriented 3 in no distress there is no fever or chills no headache or dizziness no chest pain no shortness of breath no cough no nausea or vomiting no abdominal pain, she still has mild diarrhea, no blood in the stools , Panchal catheter is still and no urinary symptoms. On 10/21/2020 patient was seen and examined on the medical floor she is alert and oriented 3 in no distress there is no fever or chills no headache or dizziness no chest pain no shortness of breath no cough no nausea or vomiting no abdominal pain no diarrhea no burning with urination no frequency or urgency and no hematuria. Was seen by urology Panchal catheter was removed currently we are monitoring her bladder function, plan is to transfer patient to [facility] on the [place] tomorrow if she is able to urinate. Patient is requesting to talk to a social studies teacher in regard to her discharge planning, she stated that she has no cloth and her family lives 60 miles away and are and able to help her at this time On 10/22/2020 patient was seen and examined on the medical floor she is alert and oriented 3 in no distress she is complaining of pain in the rectal area otherwise she denies any complaints she is able to void her bladder without difficulty at this time there is no fever or chills no headache or dizziness no chest pain no shortness of breath no cough no nausea or vomiting no abdominal pain no diarrhea no blood in the stools no burning was urination no frequency or urgency and no hematuria, patient is requiring minimal amount of oxygen at 2 - 4 L/m. she was evaluated by surgery during this admission in regard to rectal pain no further intervention is recommended, continue his hydrocortisone suppositories cream and pain medications. Patient will be transferred today to [facility] the [facility] for rehabilitation. Patient Condition at Discharge: Fair Plan - Discharge Summary Discharge Rx Participant: No New Discharge Prescriptions: New Hydrocortisone Suppository [Anusol-Hc] 25 mg RECTAL Q12H PRN supp PRN Reason: Hemorrhoids Cefuroxime [Ceftin] 250 mg PO BID 5 Days #10 tab bisacodyL [Dulcolax] 10 mg RECTAL DAILY PRN supp PRN Reason: Constipation Hydrocortisone Cream [Hydrocortisone 2.5% Cream] 1 applic TOPICAL BID 30 Days #60 gm Enoxaparin [Lovenox] 40 mg SQ HS syringe Magnesium Hydroxide [Milk of Magnesia Concentrate] 7,200 mg PO DAILY PRN ml PRN Reason: Constipation polyethylene glycoL 3350 [Miralax] 17 gm PO DAILY PRN powd.pack PRN Reason: Constipation HYDROcodone/APAP 7.5-325MG [[place] 7.5-325] 1 each PO Q6H PRN tab PRN Reason: Pain cefTRIAXone [Rocephin] 1 gm IVPB Q24HR vial Hydrophilic Cream [Triad Cream] 1 applic TOPICAL DAILY applic Acetaminophen Tab [Tylenol] 650 mg PO Q6HR PRN tab PRN Reason: Mild Pain Or Fever > 100.5 Ondansetron [Zofran] 4 mg PO Q8H PRN tab PRN Reason: Nausea Continue NIFEdipine [Nifedical Xl] 30 mg PO BID Cholecalciferol [Vitamin D3 (25 Mcg = 1000 Iu)] 1,000 unit PO HS Acetaminophen [Tylenol Arthritis] 650 mg PO Q8H PRN PRN Reason: Fever And/ Or Pain Mycophenolate Mofetil [Cellcept] 500 mg PO TID@0500,1300,2100 Celecoxib [CeleBREX] 200 mg PO BID Metoprolol Tartrate [Lopressor] 12.5 mg PO BID tab Melatonin 5 mg PO HS tablet Ascorbic Acid [Vitamin C] 1,000 mg PO HS Gabapentin [Neurontin] 200 mg PO BID Atorvastatin [Lipitor] 20 mg PO HS tab predniSONE 10 mg PO DAILY 30 Days #60 tab ALPRAZolam [Xanax] 0.25 mg PO Q8H PRN PRN Reason: Anxiety Alendronate Sodium [Fosamax] 70 mg PO WE@0600 Meclizine [Antivert] 12.5 mg PO TID@0900,1300,2100 Famotidine [Pepcid] 20 mg PO BID@0900,1700 Sennosides-Docusate Sodium [Senokot-S] 1 tab PO DAILY@1300 Aspirin 81 mg PO DAILY Hydrocortisone Suppository [Anusol-Hc] 25 mg RECTAL BID 7 Days #14 supp Morphine Sulfate ER [Ms Contin] 15 mg PO HS tablet HYDROcodone/APAP 7.5-325MG [[place] 7.5-325] 1 tab PO Q6H PRN PRN Reason: Pain Discharge Medication List NIFEdipine [Nifedical Xl] 30 mg PO BID 06/28/15 [History] Acetaminophen [Tylenol Arthritis] 650 mg PO Q8H PRN 08/27/20 [History] Cholecalciferol [Vitamin D3 (25 Mcg = 1000 Iu)] 1,000 unit PO HS 08/27/20 [History] Mycophenolate Mofetil [Cellcept] 500 mg PO TID@0500,1300,2100 08/27/20 [History] Celecoxib [CeleBREX] 200 mg PO BID 08/29/20 [History] Melatonin 5 mg PO HS tablet 09/10/20 [Rx] Metoprolol Tartrate [Lopressor] 12.5 mg PO BID tab 09/10/20 [Rx] Ascorbic Acid [Vitamin C] 1,000 mg PO HS 09/11/20 [History] Gabapentin [Neurontin] 200 mg PO BID 09/11/20 [History] Atorvastatin [Lipitor] 20 mg PO HS tab 09/20/20 [Rx] predniSONE 10 mg PO DAILY 30 Days #60 tab 09/20/20 [Rx] ALPRAZolam [Xanax] 0.25 mg PO Q8H PRN 10/06/20 [History] Alendronate Sodium [Fosamax] 70 mg PO WE@0600 10/06/20 [History] Aspirin 81 mg PO DAILY 10/06/20 [History] Famotidine [Pepcid] 20 mg PO BID@0900,1700 10/06/20 [History] Meclizine [Antivert] 12.5 mg PO TID@0900,1300,2100 10/06/20 [History] Sennosides-Docusate Sodium [Senokot-S] 1 tab PO DAILY@1300 10/06/20 [History] Hydrocortisone Suppository [Anusol-Hc] 25 mg RECTAL BID 7 Days #14 supp 10/12/20 [Rx] Morphine Sulfate ER [Ms Contin] 15 mg PO HS tablet 10/12/20 [Rx] HYDROcodone/APAP 7.5-325MG [[place] 7.5-325] 1 tab PO Q6H PRN 10/16/20 [History] Acetaminophen Tab [Tylenol] 650 mg PO Q6HR PRN tab 10/22/20 [Rx] Cefuroxime [Ceftin] 250 mg PO BID 5 Days #10 tab 10/22/20 [Rx] Enoxaparin [Lovenox] 40 mg SQ HS syringe 10/22/20 [Rx] HYDROcodone/APAP 7.5-325MG [[place] 7.5-325] 1 each PO Q6H PRN tab 10/22/20 [Rx] Hydrocortisone Cream [Hydrocortisone 2.5% Cream] 1 applic TOPICAL BID 30 Days #60 gm 10/22/20 [Rx] Hydrocortisone Suppository [Anusol-Hc] 25 mg RECTAL Q12H PRN supp 10/22/20 [Rx] Hydrophilic Cream [Triad Cream] 1 applic TOPICAL DAILY applic 10/22/20 [Rx] Magnesium Hydroxide [Milk of Magnesia Concentrate] 7,200 mg PO DAILY PRN ml 10/22/20 [Rx] Ondansetron [Zofran] 4 mg PO Q8H PRN tab 10/22/20 [Rx] bisacodyL [Dulcolax] 10 mg RECTAL DAILY PRN supp 10/22/20 [Rx] cefTRIAXone [Rocephin] 1 gm IVPB Q24HR vial 10/22/20 [Rx] polyethylene glycoL 3350 [Miralax] 17 gm PO DAILY PRN powd.pack 10/22/20 [Rx] Follow up Appointment(s)/Referral(s): Darcy Araujo MD [Primary Care Provider] - 1-2 days
[2020-10-22] MEDS: SENNOSIDES-DOCUSATE SODIUM 1 EACH TAB PO SCH (12:15)
== END 2020-10-22 13:46 | disposition home or self-care (01) | DRG 177 ==
LOC: EC 17:24 → 4SSUR 18:44
PROVIDERS: ADMIT Internal Medicine; ATTEND Internal Medicine
DX: U07.1 COVID-19 (principal); J12.82 Pneumonia due to coronavirus disease 2019; J96.21 Acute and chronic respiratory failure with hypoxia; J18.9 Pneumonia, unspecified organism; N39.0 Urinary tract infection, site not specified; D84.821 Immunodeficiency due to drugs; I73.00 Raynaud's syndrome without gangrene; M34.9 Systemic sclerosis, unspecified; R33.9 Retention of urine, unspecified; L89.322 Pressure ulcer of left buttock, stage 2; E78.5 Hyperlipidemia, unspecified; R19.7 Diarrhea, unspecified; K64.5 Perianal venous thrombosis; I27.20 Pulmonary hypertension, unspecified; Y95 Nosocomial condition; R32 Unspecified urinary incontinence; J84.10 Pulmonary fibrosis, unspecified; Z86.16 Personal history of COVID-19; K59.00 Constipation, unspecified; M19.90 Unspecified osteoarthritis, unspecified site; Z79.1 Long term (current) use of non-steroidal anti-inflammatories (NSAID); Z79.82 Long term (current) use of aspirin; Z79.83 Long term (current) use of bisphosphonates; Z79.899 Other long term (current) drug therapy; Z79.52 Long term (current) use of systemic steroids; Z88.1 Allergy status to other antibiotic agents; Z91.040 Latex allergy status; Z86.79 Personal history of other diseases of the circulatory system; Z82.49 Family history of ischemic heart disease and other diseases of the circulatory system; Z81.8 Family history of other mental and behavioral disorders; Z83.6 Family history of other diseases of the respiratory system
CPT/HCPCS: 71045; 71275; 80053; 81001; 84145; 85025; 85379; 87045; 87046; 87086; 99285

== ENCOUNTER 2020-11-20 12:14 | Inpatient (IN) | payer MEDICARE ==
[2020-11-20] MEDS ORDERED: cefTRIAXone IN SWFI 1,000 MG/10 ML SYRINGE IVP STA (12:23)
[2020-11-20] MEDS ORDERED: VANCOMYCIN IV PER PHARMACY 1 EACH MISC MISCELLANE PRN (12:23)
[2020-11-20] MEDS ORDERED: SODIUM CHLORIDE 0.9% 2,000 ML IV ONE (12:23)
[2020-11-20] MEDS ORDERED: VANCOMYCIN 1,500 MG in SODIUM CHLORIDE 0.9% 250 ML IVPB STA (12:37)
[2020-11-20 12:42] LABS: Anisocytosis Slight; Basophils % (A) 0 %; Eosinophils % (A) 1 %; HCT 33.8 % (34.0-46.0); HGB 10.4 gm/dL (11.4-16.0); Hypochromasia Moderate; Lymphocytes # (A) 0.7 k/uL (1.0-4.8); Lymphocytes % (A) 5 %; MCH 29.4 pg (25.0-35.0); MCHC 30.8 g/dL (31.0-37.0); MCV 95.4 fL (80.0-100.0); Mean Platelet Volume 7.4; Monocytes % (A) 8 %; Neutrophils # (A) 11.3 k/uL (1.3-7.7); Neutrophils % (A) 85 %; Platelet Count 311 k/uL (150-450); RBC 3.55 m/uL (3.80-5.40); RDW 16.8 % (11.5-15.5); WBC 13.3 k/uL (3.8-10.6)
[2020-11-20 12:43] LABS: Eosinophils # (A) 0.1 k/uL (0-0.7)
--- NOTE | 2020-11-20 12:45 | ED ---
General Adult HPI - General Chief complaint: Shortness of Breath Stated complaint: SOB Time Seen by Provider: 11/20/20 12:15 Source: patient, EMS, RN notes reviewed, old records reviewed Mode of arrival: EMS - History of Present Illness Initial comments: This is a 75-year-old female who presents to the emergency department from [facility] patient was diagnosed there with urinary tract infection and pneumonia. Patient was also diagnosed with sepsis. Patient is on oxygen 3 L which she is not normally on at home. They gave the patient 1 g of Rocephin were unable to get a line so they sent the patient to our emergency department. Patient still complains of shortness of breath. Patient denies any chest pain. Patient denies any abdominal pain patient denies nausea vomiting. Patient did have a fall a few days ago and had her lumbosacral region CAT scan at the other facility and they found no fractures or acute abnormalities. - Related Data Home Medications Medication Instructions Recorded Confirmed NIFEdipine [Nifedical Xl] 30 mg PO BID@0900,209906/28/15 11/20/20 Cholecalciferol [Vitamin D3 (25 1,000 unit PO DAILY@0900 08/27/20 11/20/20 Mcg = 1000 Iu)] Mycophenolate Mofetil [Cellcept] 500 mg PO TID@0500,1400,2200 08/27/20 11/20/20 Celecoxib [CeleBREX] 200 mg PO BID@0900,2100 08/29/20 11/20/20 Ascorbic Acid [Vitamin C] 1,000 mg PO HS@209909/11/20 11/20/20 Gabapentin [Neurontin] 200 mg PO TID@0600,1400,2200 09/11/20 11/20/20 Alendronate Sodium [Fosamax] 70 mg PO WE@0600 10/06/20 11/20/20 Aspirin 81 mg PO DAILY@0900 10/06/20 11/20/20 Famotidine [Pepcid] 20 mg PO BID@0900,209910/06/20 11/20/20 Meclizine [Antivert] 12.5 mg PO TID@0900,1400,2200 10/06/20 11/20/20 Sennosides-Docusate Sodium 1 tab PO DAILY PRN 10/06/20 11/20/20 [Senokot-S] Atorvastatin [Lipitor] 20 mg PO HS@209911/20/20 11/20/20 HYDROcodone/APAP 10-325MG [[place] 1 tab PO Q6H PRN 11/20/20 11/20/20 10-325] Melatonin 5 mg PO HS@209911/20/20 11/20/20 Metoprolol Tartrate [Lopressor] 12.5 mg PO BID@0900,209911/20/20 11/20/20 Morphine Sulfate ER [Ms Contin] 15 mg PO HS@209911/20/20 11/20/20 Ondansetron [Zofran] 4 mg PO Q8H PRN 11/20/20 11/20/20 Psyllium Husk 100% [Metamucil 6 gm PO DAILY@0911/20/20 11/20/20 Packet] SILVER sulfADIAZINE CREAM 1 applic TOPICAL BID 11/20/20 11/20/20 [Silvadene Cream] Tamsulosin HCl [Flomax] 0.4 mg PO HS@209911/20/20 11/20/20 predniSONE 10 mg PO DAILY@0900 11/20/20 11/20/20 Previous Rx's Medication Instructions Recorded Acetaminophen Tab [Tylenol] 650 mg PO Q6HR PRN tab 10/22/20 Magnesium Hydroxide [Milk of 7,200 mg PO DAILY PRN ml 10/22/20 Magnesia Concentrate] bisacodyL [Dulcolax] 10 mg RECTAL DAILY PRN supp 10/22/20 polyethylene glycoL 3350 [Miralax] 17 gm PO DAILY PRN powd.pack 10/22/20 Allergies Allergy/AdvReac Type Severity Reaction Status Date / Time clindamycin HCl Allergy Rash/Hives Verified 11/20/20 13:11 [From Cleocin] clindamycin palmitate HCl Allergy Rash/Hives Verified 11/20/20 13:11 [From Cleocin] clindamycin phosphate Allergy Rash/Hives Verified 11/20/20 13:11 [From Cleocin] latex Allergy Rash/Hives Verified 11/20/20 13:11 Review of Systems ROS Statement: Those systems with pertinent positive or pertinent negative responses have been documented in the HPI. ROS Other: All systems not noted in ROS Statement are negative. 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 History of Any Multi-Drug Resistant Organisms: None Reported Past Surgical History: No Surgical Hx Reported Past Anesthesia/Blood Transfusion Reactions: No Reported Reaction Past Psychological History: No Psychological Hx Reported Smoking Status: Never smoker Past Alcohol Use History: None Reported Past Drug Use History: None Reported - Past Family History Mother Family Medical History: Dementia, Hypertension Additional Family Medical History / Comment(s): Lived until 102 Father Family Medical History: COPD Additional Family Medical History / Comment(s): in his late 60's from emphysema General Exam - General Exam Comments Initial Comments: GENERAL: Patient is well-developed and well-nourished. Patient is nontoxic and well- hydrated and is in mild distress. ENT: Neck is soft and supple. No significant lymphadenopathy is noted. Oropharynx is clear. Moist mucous membranes. Neck has full range of motion without elici ting any pain. EYES: The sclera were anicteric and conjunctiva were pink and moist. Extraocular movements were intact and pupils were equal round and reactive to light. Eyelids were unremarkable. PULMONARY: Patient has crackles bilateral bases much worse on the right patient's right midlung also has crackles. CARDIOVASCULAR: There is a regular rate and rhythm without any murmurs gallops or rubs. ABDOMEN: Soft and nontender with normal bowel sounds. SKIN: Patient has quite a bit of bruising in the lumbosacral region on the back. Patient also has a second-degree decubitus ulcer between the folds of the buttocks. NEUROLOGIC: Patient is alert and oriented x3. Cranial nerves II through XII are grossly intact. Motor and sensory are also intact. Normal speech, volume and content. Symmetrical smile MUSCULOSKELETAL: Normal extremities with adequate strength and full range of motion. LYMPHATICS: No significant lymphadenopathy is noted PSYCHIATRIC: Normal psychiatric evaluation. Normal interpersonal interactions appears functionally intact in deals appropriately with others. No signs of depression. No signs of anxiety. No delusions. No hallucinations. Course Vital Signs 11/20/20 12:18 Temperature 97.8 F Pulse Rate 108 H Respiratory 18 Rate Blood Pressure 102/67 O2 Sat by Pulse 94 L Oximetry Medical Decision Making - Medical Decision Making EKG shows sinus tachycardia at 101 bpm CA interval 264 tresses 80 QT interval 3:30 QTC is 460 per patient's EKG shows no ST segment elevation or depression. I reviewed labs and x-rays from the patient's previous hospital visit this morning. Patient's x-ray showed diffuse pneumonia bilaterally. I spoke with Dr. Swenson he agreed to admit the patient admitted the patient wrote admitting orders I continued antibiotics on the floor. - Lab Data Result diagrams: 11/20/20 12:33 11/20/20 12:33 Lab Results 11/20/20 11/20/20 11/20/20 Range/Units 12:28 12:33 12:33 WBC 13.3 H (3.8-10.6) k/uL RBC 3.55 L (3.80-5.40) m/uL Hgb 10.4 L (11.4-16.0) gm/dL Hct 33.8 L (34.0-46.0) % MCV 95.4 (80.0-100.0) fL MCH 29.4 (25.0-35.0) pg MCHC 30.8 L (31.0-37.0) g/dL RDW 16.8 H (11.5-15.5) % Plt Count 311 (150-450) k/uL MPV 7.4 Neutrophils % 85 % Lymphocytes % 5 % Monocytes % 8 % Eosinophils % 1 % Basophils % 0 % Neutrophils # 11.3 H (1.3-7.7) k/uL Lymphocytes # 0.7 L (1.0-4.8) k/uL Monocytes # 1.0 (0-1.0) k/uL Eosinophils # 0.1 (0-0.7) k/uL Basophils # 0.0 (0-0.2) k/uL Hypochromasia Moderate Anisocytosis Slight Sodium 138 (137-145) mmol/L Potassium 4.5 (3.5-5.1) mmol/L Chloride 104 (98-107) mmol/L Carbon Dioxide 25 (22-30) mmol/L Anion Gap 9 mmol/L BUN 19 H (7-17) mg/dL Creatinine 0.44 L (0.52-1.04) mg/dL Est GFR (CKD-EPI)AfAm >90 (>60 ml/min/1.73 sqM) Est GFR (CKD-EPI)NonAf >90 (>60 ml/min/1.73 sqM) Glucose 103 H (74-99) mg/dL Plasma Lactic Acid Aime 1.6 (0.7-2.0) mmol/L Calcium 9.3 (8.4-10.2) mg/dL Total Bilirubin 1.0 (0.2-1.3) mg/dL AST 17 (14-36) U/L ALT 12 (4-34) U/L Alkaline Phosphatase 67 (38-126) U/L Total Protein 5.9 L (6.3-8.2) g/dL Albumin 3.2 L (3.5-5.0) g/dL Disposition Clinical Impression: Sepsis, Urinary tract infection, Pneumonia Disposition: ADMITTED IP TO THIS HOSP Referrals: Darcy Araujo MD [Primary Care Provider] - 1-2 days Time of Disposition: 13:32
[2020-11-20 12:48] LABS: ALT 12 U/L (4-34); AST 17 U/L (14-36); African American GFR (CKD) >90 (>60 ml/min/1.73 sqM); Albumin 3.2 g/dL (3.5-5.0); Alkaline Phosphatase 67 U/L (38-126); Anion Gap 9 mmol/L; Blood Urea Nitrogen 19 mg/dL (7-17); Calcium 9.3 mg/dL (8.4-10.2); Carbon Dioxide 25 mmol/L (22-30); Chloride 104 mmol/L (98-107); Glucose 103 mg/dL (74-99); Non-African American GFR(CKD) >90 (>60 ml/min/1.73 sqM); Potassium 4.5 mmol/L (3.5-5.1); Sodium 138 mmol/L (137-145); Total Protein 5.9 g/dL (6.3-8.2)
[2020-11-20] MEDS ORDERED: PNEUMONIA PROTOCOL UTILIZED 1 EACH MISC PO PRN (13:32)
[2020-11-20] MEDS ORDERED: PIPERACILLIN-TAZOBACTAM 3.375 GM in SODIUM CHLORIDE 0.9% 100 ML IVPB STA (13:32)
[2020-11-20] MEDS ORDERED: AZITHROMYCIN 500 MG in SODIUM CHLORIDE 0.9% 250 ML IVPB STA (13:32)
[2020-11-20] MEDS ORDERED: polyethylene glycoL 3350 17 GM POWD.PACK PO PRN (15:39)
[2020-11-20] MEDS ORDERED: bisacodyL 10 MG SUPP RECTAL PRN (15:39)
[2020-11-20] MEDS ORDERED: SENNOSIDES-DOCUSATE SODIUM 1 EACH TAB PO PRN (15:39)
[2020-11-20] MEDS ORDERED: MAGNESIUM HYDROXIDE 2,400 MG/10 ML CUP PO PRN (15:39)
[2020-11-20] MEDS ORDERED: ONDANSETRON 4 MG TAB PO PRN (15:39)
--- NOTE | 2020-11-20 15:49 | P.HPIM ---
History of Present Illness H&P Date: 11/20/20 Claribel Ruiz, is a 75-year-old female, who presented to [facility] emergency room with back pain and shortness of breath, she states that she fell about 1 week ago, patient was evaluated at [facility], computed tomography scan of the thoracic spine and the lumbar spine was done and revealed evidence of old T12 vertebral fracture without any evidence for new vertebral fractures, computed tomography scan also revealed extensive bilateral pulmonary infiltrates with bilateral pleural effusions, patient also had evidence of urinary tract infection, she had leukocytosis suggestive of sepsis, she was transferred to [facility] emergency room and then admitted to medical floor for further evaluation and treatment. Patient had several recent admissions to [facility], her last discharge was on 10/22/2020, over the last few months patient had evidence of Covid 19 pneumonia, she also had rectal pain and rectal bleeding and had surgery for hemorrhoids with Dr. Alatorre, she has underlying history of scleroderma, Raynaud's disease, hypertension, history of hyperlipidemia, history of osteoarthritis, history of osteoporosis, history of gastroesophageal reflux disease, history of chronic pain syndrome maintained on narcotics, history of pressure ulcer of the left buttock stage II, history of urinary retention requiring Panchal catheter placement patient was evaluated by urology on previous admission. Patient was evaluated at [facility] emergency room, her vital examination on presentation revealed a temperature of 97.8 pulse 108 respiration 18 blood pressure 102/67 pulse ox 94% on 3 L nasal cannula, her white blood count was 13.3 hemoglobin 10.4 platelet count 311 BUN 19 creatinine 0.44 Li virus PCR was negative. 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 Does NOT want to ev er return there. Spouse was admitted to [facility] in [place] with covid. Pt last spoke to him 09/09 and currently doesnt know his status or whereabouts. Smoking Status: Never smoker Past Alcohol Use History: None Reported Past Drug Use History: None Reported - Past Family History Mother Family Medical History: Dementia, Hypertension Additional Family Medical History / Comment(s): Lived until 102 Father Family Medical History: COPD Additional Family Medical History / Comment(s): in his late 60's from emphysema Medications and Allergies Home Medications Medication Instructions Recorded Confirmed Type NIFEdipine [Nifedical Xl] 30 mg PO BID@0900,2100 06/28/15 11/20/20 History Cholecalciferol [Vitamin D3 (25 1,000 unit PO DAILY@0900 08/27/20 11/20/20 History Mcg = 1000 Iu)] Mycophenolate Mofetil [Cellcept] 500 mg PO TID@0500,1400,2200 08/27/20 11/20/20 History Celecoxib [CeleBREX] 200 mg PO BID@0900,2100 08/29/20 11/20/20 History Ascorbic Acid [Vitamin C] 1,000 mg PO HS@209909/11/20 11/20/20 History Gabapentin [Neurontin] 200 mg PO TID@0600,1400,2200 09/11/20 11/20/20 History Alendronate Sodium [Fosamax] 70 mg PO WE@0600 10/06/20 11/20/20 History Aspirin 81 mg PO DAILY@0900 10/06/20 11/20/20 History Famotidine [Pepcid] 20 mg PO BID@0900,2100 10/06/20 11/20/20 History Meclizine [Antivert] 12.5 mg PO TID@0900,1400,2200 10/06/20 11/20/20 History Sennosides-Docusate Sodium 1 tab PO DAILY PRN 10/06/20 11/20/20 History [Senokot-S] Acetaminophen Tab [Tylenol] 650 mg PO Q6HR PRN tab 10/22/20 11/20/20 Rx Magnesium Hydroxide [Milk of 7,200 mg PO DAILY PRN ml 10/22/20 11/20/20 Rx Magnesia Concentrate] bisacodyL [Dulcolax] 10 mg RECTAL DAILY PRN supp 10/22/20 11/20/20 Rx polyethylene glycoL 3350 [Miralax] 17 gm PO DAILY PRN powd.pack 10/22/20 11/20/20 Rx Atorvastatin [Lipitor] 20 mg PO HS@209911/20/20 11/20/20 History HYDROcodone/APAP 10-325MG [[place] 1 tab PO Q6H PRN 11/20/20 11/20/20 History 10-325] Melatonin 5 mg PO HS@209911/20/20 11/20/20 History Metoprolol Tartrate [Lopressor] 12.5 mg PO BID@0900,209911/20/20 11/20/20 History Morphine Sulfate ER [Ms Contin] 15 mg PO HS@209911/20/20 11/20/20 History Ondansetron [Zofran] 4 mg PO Q8H PRN 11/20/20 11/20/20 History Psyllium Husk 100% [Metamucil 6 gm PO DAILY@0900 11/20/20 11/20/20 History Packet] SILVER sulfADIAZINE CREAM 1 applic TOPICAL BID 11/20/20 11/20/20 History [Silvadene Cream] Tamsulosin HCl [Flomax] 0.4 mg PO HS@209911/20/20 11/20/20 History predniSONE 10 mg PO DAILY@0900 11/20/20 11/20/20 History Allergies Allergy/AdvReac Type Severity Reaction Status Date / Time clindamycin HCl Allergy Rash/Hives Verified 11/20/20 13:11 [From Cleocin] clindamycin palmitate HCl Allergy Rash/Hives Verified 11/20/20 13:11 [From Cleocin] clindamycin phosphate Allergy Rash/Hives Verified 11/20/20 13:11 [From Cleocin] latex Allergy Rash/Hives Verified 11/20/20 13:11 Physical Exam Vitals: Vital Signs Temp Pulse Resp BP Pulse Ox 11/20/20 15:05 18 11/20/20 13:48 18 11/20/20 12:18 97.8 F 108 H 18 102/67 94 L Intake and Output 11/20/20 11/20/20 11/20/20 06:59 14:59 22:59 Other: Weight 75.75 kg In general patient is alert and oriented 3 in no apparent distress HEENT head normocephalic and atraumatic Neck is supple no JVD no goiter no lymphadenopathy Chest exam reveals a scattered crackles bilaterally no wheezing Cardiac exam reveals regular heart sounds S1 and S2 with 2/6 systolic murmur in the left sternal border Abdomen is soft nontender no organomegaly with normal bowel sounds Extremity exam reveals 1+ edema Neurological examination reveals no gross focal deficit Results CBC & Chem 7: 11/20/20 12:33 11/20/20 12:33 Labs: Abnormal Lab Results - Last 24 Hours (Table) 11/20/20 11/20/20 Range/Units 12:33 12:33 WBC 13.3 H (3.8-10.6) k/uL RBC 3.55 L (3.80-5.40) m/uL Hgb 10.4 L (11.4-16.0) gm/dL Hct 33.8 L (34.0-46.0) % MCHC 30.8 L (31.0-37.0) g/dL RDW 16.8 H (11.5-15.5) % Neutrophils # 11.3 H (1.3-7.7) k/uL Lymphocytes # 0.7 L (1.0-4.8) k/uL BUN 19 H (7-17) mg/dL Creatinine 0.44 L (0.52-1.04) mg/dL Glucose 103 H (74-99) mg/dL Total Protein 5.9 L (6.3-8.2) g/dL Albumin 3.2 L (3.5-5.0) g/dL Thrombosis Risk Factor Assmnt - Choose All That Apply Any of the Below Risk Factors Present?: No Other Risk Factors: Yes Each Risk Factor Represents 3 Points: Age 75 years or older Thrombosis Risk Factor Assessment Total Risk Factor Score: 3 Thrombosis Risk Factor Assessment Level: Moderate Risk Assessment and Plan Plan: 1. Bilateral pneumonia patient was evaluated at [facility] and transferred to [facility] she was started on IV antibiotics, currently she is on Zosyn, Zithromax, and vancomycin, pulmonary consultation was requested. 2. Bilateral pleural effusion will recheck chest x-ray in a.m. 3. Acute on chronic hypoxic respiratory failure 4. Sepsis as evidenced by leukocytosis, tachycardia, patient received IV fluid boluses and currently she is maintained on IV antibiotics blood pressure is stable and will monitor closely . 5. Recent fall with back pain Will continue with current narcotic regimen and adjust as needed 6. Recent surgery for hemorrhoids, patient is still complaining of pain in the rectal area and stool incontinence, will check stools for C. diff 7. Urinary retention, patient was evaluated by urology on previous admission, she is still has a Panchal catheter, will consult urology again for evaluation. 8. Evidence of urinary tract infection Will continue with current antibiotics awaiting urine and blood culture results 9. Underlying history of scleroderma 10. Underlying history of hypertension 11. Underlying history of hyperlipidemia 12. Underlying history of chronic pain syndrome maintained on narcotics 13. Underlying history of gastroesophageal reflux disease. 14. Underlying history of anxiety disorder. At this time patient is admitted to medical floor, she is started on IV antibiotics Home medications reviewed and reordered Recheck labs and chest x-ray in a.m. Check stools for C. diff Consult pulmonary and urology Will follow closely
[2020-11-20] MEDS: MORPHINE SULFATE ER 15 MG TABLET PO SCH (20:25)
[2020-11-20] MEDS: MELATONIN 5 MG TABLET PO SCH (20:25)
[2020-11-20] MEDS: METOPROLOL TARTRATE 12.5 MG TAB PO SCH (20:25)
[2020-11-20] MEDS: ASCORBIC ACID 500 MG TAB PO SCH (20:25)
[2020-11-20] MEDS: FAMOTIDINE 20 MG TAB PO SCH (20:38)
[2020-11-20] MEDS: TAMSULOSIN 0.4 MG CAP.ER.24H PO SCH (20:38)
[2020-11-20] MEDS: MECLIZINE 12.5 MG TAB PO SCH (20:38)
[2020-11-20] MEDS: ATORVASTATIN 20 MG TAB PO SCH (20:38)
[2020-11-20] MEDS: NIFEdipine XL 30 MG TAB.ER.24 PO SCH (20:38)
[2020-11-20] MEDS: GABAPENTIN 100 MG CAP PO SCH (20:38)
[2020-11-20] MEDS: PIPERACILLIN-TAZOBACTAM 3.375 GM in SODIUM CHLORIDE 0.9% 100 ML IVPB SCH (23:01)
[2020-11-21] MEDS ORDERED: VANCOMYCIN 1,500 MG in SODIUM CHLORIDE 0.9% 250 ML IVPB SCH (02:00)
[2020-11-21] MEDS: GABAPENTIN 100 MG CAP PO SCH ×3 (05:14→20:18)
[2020-11-21 07:19] LABS: Anisocytosis Slight; Basophils % (A) 0 %; Eosinophils # (A) 0.1 k/uL (0-0.7); Eosinophils % (A) 1 %; HCT 34.1 % (34.0-46.0); HGB 10.3 gm/dL (11.4-16.0); Hypochromasia Marked; Lymphocytes # (A) 0.7 k/uL (1.0-4.8); Lymphocytes % (A) 9 %; MCH 29.3 pg (25.0-35.0); MCHC 30.3 g/dL (31.0-37.0); MCV 96.6 fL (80.0-100.0); Mean Platelet Volume 7.6; Monocytes # (A) 0.7 k/uL (0-1.0); Monocytes % (A) 8 %; Neutrophils # (A) 6.5 k/uL (1.3-7.7); Neutrophils % (A) 81 %; Platelet Count 314 k/uL (150-450); RBC 3.53 m/uL (3.80-5.40); RDW 16.7 % (11.5-15.5); WBC 8.1 k/uL (3.8-10.6)
--- NOTE | 2020-11-21 07:36 | XR ---
EXAMINATION TYPE: XR chest 2V DATE OF EXAM: 11/21/2020 COMPARISON: 10/19/2020 INDICATION: Follow-up pneumonia TECHNIQUE: Frontal and lateral views of the chest are obtained. FINDINGS: The heart size is normal. The pulmonary vasculature is prominent. Diffuse increased lung markings are present greater in the peripheral right mid lung. Milder infiltr ate is present on the left. Left apical nodule is not discretely identified currently. IMPRESSION: 1. Diffuse increased infiltrates bilaterally greater on the right can be compatible with pneumonia. C onsider atypical pneumonia. Follow-up is recommended.
[2020-11-21] MEDS: MELOXICAM 7.5 MG TAB PO SCH (08:21)
[2020-11-21] MEDS: METOPROLOL TARTRATE 12.5 MG TAB PO SCH ×2 (08:21→20:17)
[2020-11-21] MEDS: HYDROcodone/APAP 10-325MG 1 EACH TAB PO PRN (08:22)
[2020-11-21] MEDS: FAMOTIDINE 20 MG TAB PO SCH ×2 (08:22→20:17)
[2020-11-21] MEDS: predniSONE 10 MG TAB PO SCH (08:22)
[2020-11-21] MEDS: ASPIRIN 81 MG PO SCH (08:22)
[2020-11-21] MEDS: PIPERACILLIN-TAZOBACTAM 3.375 GM in SODIUM CHLORIDE 0.9% 100 ML IVPB SCH ×3 (08:23→23:13)
[2020-11-21] MEDS: MECLIZINE 12.5 MG TAB PO SCH ×3 (08:24→20:18)
[2020-11-21] MEDS: PSYLLIUM HUSK 100% 6 GM PACKET PO SCH (08:25)
[2020-11-21] MEDS: NIFEdipine XL 30 MG TAB.ER.24 PO SCH ×2 (08:25→20:18)
[2020-11-21] MEDS: CHOLECALCIFEROL 25 MCG (1000 IU) TABLET PO SCH (08:30)
[2020-11-21 08:35] LABS: ALT 13 U/L (4-34); AST 29 U/L (14-36); African American GFR (CKD) >90 (>60 ml/min/1.73 sqM); Albumin 3.2 g/dL (3.5-5.0); Albumin/Globulin Ratio 1.1; Alkaline Phosphatase 53 U/L (38-126); Anion Gap 8 mmol/L; Blood Urea Nitrogen 16 mg/dL (7-17); Calcium 8.6 mg/dL (8.4-10.2); Carbon Dioxide 24 mmol/L (22-30); Chloride 107 mmol/L (98-107); Globulin 2.9 g/dL; Glucose 125 mg/dL (74-99); Non-African American GFR(CKD) >90 (>60 ml/min/1.73 sqM); Potassium 5.1 mmol/L (3.5-5.1); Sodium 139 mmol/L (137-145); Total Bilirubin 0.8 mg/dL (0.2-1.3); Total Protein 6.1 g/dL (6.3-8.2)
[2020-11-21] MEDS ORDERED: CHOLECALCIFEROL 25 MCG (1000 IU) TABLET PO SCH (09:00)
[2020-11-21 14:02] LABS: Appearance,Urine Cloudy (Clear); Bacteria,Urine Rare /hpf; Bilirubin,Urine Negative (Negative); Blood,Urine Negative (Negative); Color,Urine Yellow; Glucose,Urine (UA) Negative (Negative); Hyaline Casts,Urine 1 /lpf (0-2); Ketones,Urine Negative (Negative); Leukocyte Esterase,Urine Moderate (Negative); Mucus,Urine Rare /hpf; Nitrite,Urine Negative (Negative); Protein,Urine 1+ (Negative); Specific Gravity,Urine 1.037 (1.001-1.035); Squamous Epithelial Cell,Urine <1 /hpf (0-4); Urobilinogen,Urine <2.0 mg/dL (<2.0); WBC,Urine 20 /hpf (0-5)
[2020-11-21] MEDS: LIDOCAINE 4% CREAM 5 GM TUBE TOPICAL PRN (15:11)
--- NOTE | 2020-11-21 15:27 | CONS ---
CONSULTATION DATE OF SERVICE: 11/21/2020 REASON FOR CONSULTATION: Pneumonia and UTI. HISTORY OF PRESENT ILLNESS: The patient is a 75-year-old female with a past medical history significant for systemic scleroderma, , pneumonia and multiple admissions to the hospital. The patient presented to [facility] for evaluation of increasing shortness of breath and cough. The patient's symptoms have been going on for 2 to 3 days before she presented to the hospital. The patient denies having any chest pain. She is becoming more shortness of breath and also complaining of cough, which has been moderate in intensity with occasional sputum. No hemoptysis. No pleuritic chest pain. No abdominal pain or diarrhea. The patient did have urinary incontinence and Panchal catheter has been plain. The patient was diagnosed with UTI and pneumonia at that facility. She was subsequent transferred to this facility for further management. On presentation to this hospital, the patient has been afebrile so far. The patient has been hypoxic on supplemental oxygen. The patient did have a white count of 13.3 with left shift on admission. Creatinine was normal. Liver enzymes are normal. Li PCR was negative. The patient did have a chest x-ray shows diffuse increased infiltrate bilaterally greater on the right can be compatible with pneumonia. She has been treated with broad spectrum antibiotics in form of vancomycin and Zosyn and Zithromax. Infectious Disease was consulted for further management of antibiotic therapy. REVIEW OF SYSTEMS: Positive points have been mentioned in HPI. Rest of systems are negative. PAST MEDICAL HISTORY: Significant for osteoarthritis, pneumonia, Raynaud syndrome, scleroderma, UTIs and pneumonia. PAST SURGICAL HISTORY: No major surgery. SOCIAL HISTORY: Denies smoking, drinking, or drug use. FAMILY HISTORY: Mother history of dementia and hypertension. Father history of COPD. ALLERGIES: CLINDAMYCIN. MEDICATIONS: The patient is currently on Tylenol, [place], vitamin C, aspirin, Lipitor, Zithromax, Dulcolax, Pepcid, Neurontin, Antivert, melatonin, Mobic, Lopressor, MS Contin, CellCept, Procardia, Zofran, Zosyn, vancomycin, Flomax. PHYSICAL EXAMINATION: Blood pressure 128/74 with a pulse of 91. Temperature 97.7. She is 97% on 10 L high- flow oxygen. General description is an elderly female up in the bed in no distress. No tachypnea or accessory muscles of respiration use. HEENT: Shows pallor. No scleral icterus. Oral mucous membranes dry. NECK: Trachea central. No thyromegaly. LUNGS: Unlabored breathing. Coarse breath sounds bilaterally. No wheeze. HEART S1, S2. Regular rate and rhythm. ABDOMEN: Soft. No tenderness. No guarding. No rigidity. EXTREMITIES: No edema of the feet. SKIN examination: No rash or mass palpable. NEUROLOGICAL: Patient is awake, alert, oriented times three. Mood and affect normal. LABS: Hemoglobin 10.4, white count 13.3, BUN of 16, creatinine 0.37. Electrolytes have been normal. Liver enzymes are normal. Li PCR is negative. DIAGNOSTIC IMPRESSION AND PLAN: 1. Patient admitted to the hospital with increasing shortness of breath, cough with likely right-sided pneumonia, possible nosocomial as the patient has been in and out of the hospital and has been treated with multiple courses of antibiotic. 2. Patient also has urinary symptoms. Apparently did have a positive UA at the other facility with component of urinary tract infection. PLAN: 1. We will obtain a sputum for Gram stain and culture. 2. The patient to continue with Zosyn. However, discontinue vancomycin to decrease nephrotoxicity. Check urine culture. 3. We will follow on clinical condition and culture to further adjust medication if needed. Thank you for this consultation. We will follow this patient along with you. MMODL / IJN: [id number] /
[2020-11-21] MEDS ORDERED: AZITHROMYCIN 500 MG in SODIUM CHLORIDE 0.9% 250 ML IVPB SCH (16:00)
[2020-11-21 16:12] VITALS: BMI 23.9
--- NOTE | 2020-11-21 17:04 | P.CNPUL ---
History of Present Illness Consult date: 11/21/20 Requesting physician: Akbar Swenson Reason for consult: dyspnea, cough, COPD, hypoxemia, pneumonia, abnormal CXR/CT Chief complaint: Shortness of breath, abnormal chest x-ray. History of present illness: This is a 75-year-old female that is transferred down from [facility]. [place] [facility] [place] The patient was recently diagnosed with a urinary tract infection and pneumonia. She was also diagnosed with sepsis and placed on oxygen at 3 L. Typically she is not on oxygen therapy. The patient was transferred down to for further management and evaluation. Her complaints include primarily shortness of breath, and cough. She's not producing much or any phlegm. She denies any chest pain. She also denies any nausea, vomiting, or diarrhea. She denied any fever or chills. She did recently fall, and injured her back. Apparently there were no fractures noted. Currently, her chest x-ray showing diffuse bilateral infiltrates. Her primary care provider is Dr. Darcy Araujo. Chest x-ray showed bilateral infiltrates, right greater than left. Her COVID 19 testing was negative. Her white count was 8.1 down from 13.3, white count 10.3, hematocrit 34.1, and platelet count 314,000. Sodium was 139, potassium 5.1, chloride 107, CO2 24, anion gap 8, BUN 16, creat inine 0.37. Her urine was yellow and cloudy with a specific gravity 1.037. Her leukocyte esterase test was moderately positive with 20 WBCs, and rare bacteria. Currently, she is on vancomycin and also Zosyn. Culture data including blood sampling, sputum, and urine are either pending or negative. Clinically, she was requiring 10 L high flow nasal cannula for saturations between 93-97%. She did not appear to have any significant distress. Review of Systems REVIEW OF SYSTEMS: CONSTITUTIONAL: [Negative.] NEUROLOGIC: [ Negative.] HEENT: [ Negative.] CARDIAC: [Negative.] PULMONARY: Shortness of breath, cough, chest tightness. GI: [Negative.] : [Negative.] RHEUMATOLOGIC: [ Negative.] IMMUNOLOGIC: [ Negative.] ENDOCRINE: [Negative. 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 Does NOT want to ever return there. Spouse was admitted to [facility] in [place] with [place]on. Pt last spoke to him 09/09 and currently doesnt know his status or whereabouts. Smoking Status: Never smoker Past Alcohol Use History: None Reported Past Drug Use History: None Reported - Past Family History Mother Family Medical History: Dementia, Hypertension Additional Family Medical History / Comment(s): Lived until 89 Father Family Medical History: COPD Additional Family Medical History / Comment(s): in his late 60's from emphysema Medications and Allergies Home Medications Medication Instructions Recorded Confirmed Type NIFEdipine [Nifedical Xl] 30 mg PO BID@0900,209906/28/15 11/20/20 History Cholecalciferol [Vitamin D3 (25 1,000 unit PO DAILY@0900 08/27/20 11/20/20 History Mcg = 1000 Iu)] Mycophenolate Mofetil [Cellcept] 500 mg PO TID@0500,1400,2200 08/27/20 11/20/20 History Celecoxib [CeleBREX] 200 mg PO BID@0900,2100 08/29/20 11/20/20 History Ascorbic Acid [Vitamin C] 1,000 mg PO HS@209909/11/20 11/20/20 History Gabapentin [Neurontin] 200 mg PO TID@0600,1400,2200 09/11/20 11/20/20 History Alendronate Sodium [Fosamax] 70 mg PO WE@0600 10/06/20 11/20/20 History Aspirin 81 mg PO DAILY@0900 10/06/20 11/20/20 History Famotidine [Pepcid] 20 mg PO BID@0900,2100 10/06/20 11/20/20 History Meclizine [Antivert] 12.5 mg PO TID@0900,1400,2200 10/06/20 11/20/20 History Sennosides-Docusate Sodium 1 tab PO DAILY PRN 10/06/20 11/20/20 History [Senokot-S] Acetaminophen Tab [Tylenol] 650 mg PO Q6HR PRN tab 10/22/20 11/20/20 Rx Magnesium Hydroxide [Milk of 7,200 mg PO DAILY PRN ml 10/22/20 11/20/20 Rx Magnesia Concentrate] bisacodyL [Dulcolax] 10 mg RECTAL DAILY PRN supp 10/22/20 11/20/20 Rx polyethylene glycoL 3350 [Miralax] 17 gm PO DAILY PRN powd.pack 10/22/2011/01 Rx Atorvastatin [Lipitor] 20 mg PO HS@209911/20/20 11/20/20 History HYDROcodone/APAP 10-325MG [Divide 1 tab PO Q6H PRN 11/20/20 11/20/20 History 10-325] Melatonin 5 mg PO HS@209911/20/20 11/20/20 History Metoprolol Tartrate [Lopressor] 12.5 mg PO BID@0900,209911/20/20 11/20/20 Hi story Morphine Sulfate ER [Ms Contin] 15 mg PO HS@209911/20/20 11/20/20 History Ondansetron [Zofran] 4 mg PO Q8H PRN 11/20/20 11/20/20 History Psyllium Husk 100% [Metamucil 6 gm PO DAILY@0900 11/20/20 11/20/20 History Packet] SILVER sulfADIAZINE CREAM 1 applic TOPICAL BID 11/20/20 11/20/20 History [Silvadene Cream] Tamsulosin HCl [Flomax] 0.4 mg PO HS@209911/20/20 11/20/20 History predniSONE 10 mg PO DAILY@0900 11/20/20 11/20/20 History Allergies Allergy/AdvReac Type Severity Reaction Status Date / Time clindamycin HCl Allergy Rash/Hives Verified 11/20/20 13:11 [From Cleocin] clindamycin palmitate HCl Allergy Rash/Hives Verified 11/20/20 13:11 [From Cleocin] clindamycin phosphate Allergy Rash/Hives Verified 11/20/20 13:11 [From Cleocin] latex Allergy Rash/Hives Verified 11/20/20 13:11 Physical Exam Osteopathic Statement: *. No significant issues noted on an osteopathic structural exam other than those noted in the History and Physical/Consult. Vitals: Vital Signs Temp Pulse Resp BP Pulse Ox 11/21/20 14:00 97.9 F 88 16 111/70 93 L 11/21/20 08:00 16 11/21/20 07:54 97.7 F 91 16 128/74 97 11/21/20 02:00 97.7 F 72 20 126/73 90 L 11/20/20 20:00 97.8 F 98 20 127/75 94 L 11/20/20 19:40 20 Intake and Output 11/21/20 11/21/20 11/21/20 06:59 14:59 22:59 Intake Total 200 Output Total 1000 Balance -800 Intake: Oral 200 Output: Urine 1000 Straight 500 Other: Voiding Method Indwelling Catheter # Bowel Movements 1 Weight 75.75 kg No acute distress, oriented 3. High flow nasal cannula noted. There was no audible wheezing, or use of accessory muscles. HEENT examination is grossly unremarkable. Mucous membranes are moist. No oral lesions. Neck supple. Full range of motion. No adenopathy thyromegaly or neck vein distention. Cardiovascular examination reveals regular rhythm rate. S1-S2 normal. No S3 or S4. No discernible murmur noted. Heart sounds are distant, and heart rate is 80 bpm. Lungs reveal coarse bilateral rhonchi. No wheezes or crackles. Breath sounds equal bilaterally. Abdomen soft bowel sounds are heard. No masses or tenderness. Extremities are intact. No cyanosis clubbing or edema. Skin is without rash or lesion. Neurologic examination is brief but nonfocal. Results - Laboratory Findings CBC and BMP: 11/21/20 06:51 11/21/20 06:51 Abnormal lab findings: Abnormal Labs 11/20/20 11/20/20 11/21/20 12:33 12:33 06:51 WBC 13.3 H RBC 3.55 L 3.53 L Hgb 10.4 L 10.3 L Hct 33.8 L MCHC 30.8 L 30.3 L RDW 16.8 H 16.7 H Neutrophils # 11.3 H Lymphocytes # 0.7 L 0.7 L BUN 19 H Creatinine 0.44 L Glucose 103 H Total Protein 5.9 L Albumin 3.2 L Urine Appearance Ur Specific [place] Urine Protein Ur Leukocyte Esterase Urine WBC Urine Bacteria Urine Mucus 11/21/20 11/21/20 06:51 13:15 WBC RBC Hgb Hct MCHC RDW Neutrophils # Lymphocytes # BUN Creatinine 0.37 L Glucose 125 H Total Protein 6.1 L Albumin 3.2 L Urine Appearance Cloudy H Ur Specific [place] 1.037 H Urine Protein 1+ H Ur Leukocyte Esterase Moderate H Urine WBC 20 H Urine Bacteria Rare H Urine Mucus Rare H - Diagnostic Findings Chest x-ray: image reviewed Assessment and Plan Assessment: Acute hypoxemic respiratory failure secondary to bilateral pneumonia. Urinary tract infection, rule out urosepsis. Severe hypoxemic respiratory failure, rule out early acute respiratory distress syndrome (ARDS). History of osteoarthritis. History of pneumonia. History of Raynaud's syndrome. History of progressive systemic sclerosis (PSS). History of varicose veins. History of degenerative disc disease. Lifelong nonsmoker. Plan: Plan dated 11/21/2020. Currently, the patient's on good antibiotics. We will follow along and make recommendations were appropriate. Her medications are reviewed. Currently, she is on vancomycin and Zosyn. She is likely immunocompromised given the fact that she was previously on CellCept. The patient's respiratory status may be worsening, and she may end up on mechanical ventilation. We'll have to watch her very carefully. Her chest x-ray shows diffuse right greater than left pulmonary infiltrates. Cultures of blood urine and sputum should be done. Additional recommendations and suggestions are forthcoming. Prognosis is guarded. Continue with GI and DVT prophylaxis. Time with Patient: Greater than 30
--- NOTE | 2020-11-21 17:08 | P.PN ---
Subjective Progress Note Date: 11/21/20 Claribel Ruiz, is a 75-year-old female, who presented to [facility] emergency room with back pain and shortness of breath, she states that she fell about 1 week ago, patient was evaluated at [facility], computed tomography scan of the thoracic spine and the lumbar spine was done and revealed evidence of old T12 vertebral fracture without any evidence for new vertebral fractures, computed tomography scan also revealed extensive bilateral pulmonary infiltrates with bilateral pleural effusions, patient also had evidence of urinary tract infection, she had leukocytosis suggestive of sepsis, she was transferred to [facility] emergency room and then admitted to medical floor for further evaluation and treatment. Patient had several recent admissions to [facility], her last discharge was on 10/22/2020, over the last few months patient had evidence of Covid 19 pneumonia, she also had rectal pain and rectal bleeding and had surgery for hemorrhoids with Dr. Alatorre, she has underlying history of scleroderma, Raynaud's disease, hypertension, history of hyperlipidemia, history of osteoarthritis, history of osteoporosis, history of gastroesophageal reflux disease, history of chronic pain syndrome maintained on narcotics, history of pressure ulcer of the left buttock stage II, history of urinary retention requiring Panchal catheter placement patient was evaluated by urology on previous admission. Patient was evaluated at [facility] emergency room, her vital examination on presentation revealed a temperature of 97.8 pulse 108 respiration 18 blood pressure 102/67 pulse ox 94% on 3 L nasal cannula, her white blood count was 13.3 hemoglobin 10.4 platelet count 311 BUN 19 creatinine 0.44 Li virus PCR was negative. On 11/21/2020 patient was seen and examined on the medical floor she is alert and oriented 3 in no apparent distress she is complaining of stools incontinence patient stated that she is constantly having liquid stool coming out of the rectum she is also complaining of chest tightness and shortness of breath and occasional cough otherwise she denies any complaints. At this point will check stools for C. diff, consultation for gastroenterology was initiated Objective - Vital Signs Vital signs: Vital Signs Temp 97.7 F 11/21/20 07:54 Pulse 91 11/21/20 07:54 Resp 16 11/21/20 07:54 BP 128/74 11/21/20 07:54 Pulse Ox 97 11/21/20 07:54 Intake & Output 11/20/20 11/21/20 11/21/20 18:59 06:59 18:59 Intake Total 200 Output Total 1000 Balance -800 Weight 75.75 kg Intake: Oral 200 Output: Urine 1000 Straight 500 Other: Voiding Method Indwelling Catheter # Bowel Movements 1 1 - Exam In general patient is alert and oriented 3 in no apparent distress HEENT head normocephalic and atraumatic Neck is supple no JVD no goiter no lymphadenopathy Chest exam reveals a scattered crackles bilaterally no wheezing Cardiac exam reveals regular heart sounds S1 and S2 with 2/6 systolic murmur in the left sternal border Abdomen is soft nontender no organomegaly with normal bowel sounds Extremity exam reveals 1+ edema Neurological examination reveals no gross focal deficit - Labs CBC & Chem 7: 11/21/20 06:51 11/21/20 06:51 Labs: Abnormal Lab Results - Last 24 Hours (Table) 11/20/20 11/20/20 11/21/20 Range/Units 12:33 12:33 06:51 WBC 13.3 H (3.8-10.6) k/uL RBC 3.55 L 3.53 L (3.80-5.40) m/uL Hgb 10.4 L 10.3 L (11.4-16.0) gm/dL Hct 33.8 L (34.0-46.0) % MCHC 30.8 L 30.3 L (31.0-37.0) g/dL RDW 16.8 H 16.7 H (11.5-15.5) % Neutrophils # 11.3 H (1.3-7.7) k/uL Lymphocytes # 0.7 L 0.7 L (1.0-4.8) k/uL BUN 19 H (7-17) mg/dL Creatinine 0.44 L (0.52-1.04) mg/dL Glucose 103 H (74-99) mg/dL Total Protein 5.9 L (6.3-8.2) g/dL Albumin 3.2 L (3.5-5.0) g/dL 11/21/20 Range/Units 06:51 WBC (3.8-10.6) k/uL RBC (3.80-5.40) m/uL Hgb (11.4-16.0) gm/dL Hct (34.0-46.0) % MCHC (31.0-37.0) g/dL RDW (11.5-15.5) % Neutrophils # (1.3-7.7) k/uL Lymphocytes # (1.0-4.8) k/uL BUN (7-17) mg/dL Creatinine 0.37 L (0.52-1.04) mg/dL Glucose 125 H (74-99) mg/dL Total Protein 6.1 L (6.3-8.2) g/dL Albumin 3.2 L (3.5-5.0) g/dL Assessment and Plan Plan: 1. Bilateral pneumonia patient was evaluated at [facility] and transferred to [facility] she was started on IV antibiotics, currently she is on Zosyn, Zithromax, and vancomycin, pulmonary consultation was requested. 2. Bilateral pleural effusion will recheck chest x-ray in a.m. 3. Acute on chronic hypoxic respiratory failure 4. Sepsis as evidenced by leukocytosis, tachycardia, patient received IV fluid boluses and currently she is maintained on IV antibiotics blood pressure is stable and will monitor closely . 5. Recent fall with back pain Will continue with current narcotic regimen and adjust as needed 6. Recent surgery for hemorrhoids, patient is still complaining of pain in the rectal area and stool incontinence, will check stools for C. diff 7. Urinary retention, patient was evaluated by urology on previous admission, she is still has a Panchal catheter, will consult urology again for evaluation. 8. Evidence of urinary tract infection Will continue with current antibiotics awaiting urine and blood culture results 9. Underlying history of scleroderma 10. Underlying history of hypertension 11. Underlying history of hyperlipidemia 12. Underlying history of chronic pain syndrome maintained on narcotics 13. Underlying history of gastroesophageal reflux disease. 14. Underlying history of anxiety disorder. At this time patient is admitted to medical floor, she is started on IV antibiotics Home medications reviewed and reordered Recheck labs and chest x-ray in a.m. Check stools for C. diff Consult pulmonary and urology Will follow closely
[2020-11-21] MEDS: MELATONIN 5 MG TABLET PO SCH (20:17)
[2020-11-21] MEDS: MORPHINE SULFATE ER 15 MG TABLET PO SCH (20:17)
[2020-11-21] MEDS: ATORVASTATIN 20 MG TAB PO SCH (20:17)
[2020-11-21] MEDS: ASCORBIC ACID 500 MG TAB PO SCH (20:17)
[2020-11-21] MEDS: TAMSULOSIN 0.4 MG CAP.ER.24H PO SCH (20:18)
--- NOTE | 2020-11-21 21:00 | P.GSCN ---
History of Present Illness Consult date: 11/21/20 Reason for Consult: Urinary retention History of present illness: This is a 75-year-old female that presents to the hospital with shortness of breath, and cough. She did recently fall, imaging showed no fractures. She was seen during her last hospitalization, a Panchal catheter was placed at that time for urinary retention. Patient indicated she had a failed trial of void as an outpatient and Panchal catheter was subsequently reinserted. She is unsure how long the catheter has been in place. Denies any gross hematuria or dysuria Review of Systems - Constitutional Denies fever, Denies weight loss - Cardiovascular Denies chest pain, Denies shortness of breath - Respiratory Reports cough, Reports dyspnea - Gastrointestinal Reports as per HPI, Reports constipation - Genitourinary Genitourinary: Denies dysuria, Denies hematuria - Integumentary Denies rash, Denies unusual bruising - Neurological Denies headaches, Denies syncope - Hematologic/Lymphatic Denies easy bleeding, Denies easy bruising 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 Does NOT want to ever return there. Spouse was admitted to [facility] in [place] with [facility]. Pt last spoke to him 09/09 and currently doesnt know his status or whereabouts. Smoking Status: Never smoker Past Alcohol Use History: None Reported Past Drug Use History: None Reported - Past Family History Mother Family Medical History: Dementia, Hypertension Additional Family Medical History / Comment(s): Lived until 89 Father Family Medical History: COPD Additional Family Medical History / Comment(s): in his late 60's from emphysema Medications and Allergies Home Medications Medication Instructions Recorded Confirmed Type NIFEdipine [Nifedical Xl] 30 mg PO BID@0900,2100 06/28/15 11/20/20 History Cholecalciferol [Vitamin D3 (25 1,000 unit PO DAILY@0900 08/27/20 11/20/20 History Mcg = 1000 Iu)] Mycophenolate Mofetil [Cellcept] 500 mg PO TID@0500,1400,2200 08/27/20 11/20/20 History Celecoxib [CeleBREX] 200 mg PO BID@0900,2100 08/29/20 11/20/20 History Ascorbic Acid [Vitamin C] 1,000 mg PO HS@209909/11/20 11/20/20 History Gabapentin [Neurontin] 200 mg PO TID@0600,1400,2200 09/11/20 11/20/20 History Alendronate Sodium [Fosamax] 70 mg PO WE@0600 10/06/20 11/20/20 History Aspirin 81 mg PO DAILY@0900 10/06/20 11/20/20 History Famotidine [Pepcid] 20 mg PO BID@0900,2100 10/06/20 11/20/20 History Meclizine [Antivert] 12.5 mg PO TID@0900,1400,2200 10/06/20 11/20/20 History Sennosides-Docusate Sodium 1 tab PO DAILY PRN 10/06/20 11/20/20 History [Senokot-S] Acetaminophen Tab [Tylenol] 650 mg PO Q6HR PRN tab 10/22/20 11/20/20 Rx Magnesium Hydroxide [Milk of 7,200 mg PO DAILY PRN ml 10/22/20 11/20/20 Rx Magnesia Concentrate] bisacodyL [Dulcolax] 10 mg RECTAL DAILY PRN supp 10/22/20 11/20/20 Rx polyethylene glycoL 3350 [Miralax] 17 gm PO DAILY PRN powd.pack 10/22/20 Rx Atorvastatin [Lipitor] 20 mg PO HS@209911/20/20 11/20/20 History HYDROcodone/APAP 10-325MG [[place] 1 tab PO Q6H PRN 11/20/20 11/20/20 History 10-325] Melatonin 5 mg PO HS@209911/20/20 11/20/20 History Metoprolol Tartrate [Lopressor] 12.5 mg PO BID@0900,2100 11/20/20 11/20/20 H istory Morphine Sulfate ER [Ms Contin] 15 mg PO HS@209911/20/20 11/20/20 History Ondansetron [Zofran] 4 mg PO Q8H PRN 11/20/20 11/20/20 History Psyllium Husk 100% [Metamucil 6 gm PO DAILY@0900 11/20/20 11/20/20 History Packet] SILVER sulfADIAZINE CREAM 1 applic TOPICAL BID 11/20/20 11/20/20 History [Silvadene Cream] Tamsulosin HCl [Flomax] 0.4 mg PO HS@209911/20/20 11/20/20 History predniSONE 10 mg PO DAILY@0900 11/20/20 11/20/20 History Allergies Allergy/AdvReac Type Severity Reaction Status Date / Time clindamycin HCl Allergy Rash/Hives Verified 11/20/20 13:11 [From Cleocin] clindamycin palmitate HCl Allergy Rash/Hives Verified 11/20/20 13:11 [From Cleocin] clindamycin phosphate Allergy Rash/Hives Verified 11/20/20 13:11 [From Cleocin] latex Allergy Rash/Hives Verified 11/20/20 13:11 Surgical - Exam Vital Signs Temp Pulse Resp BP Pulse Ox 97.8 F 108 H 18 102/67 94 L 11/20/20 12:18 11/20/20 12:18 11/20/20 12:18 11/20/20 12:18 11/20/20 12:18 - General well developed, well nourished, no distress, no pain - Eyes PERRL, normal ocular movement - ENT normal nares, normal mucosa - Respiratory normal expansion, normal respiratory effort - Genitourinary Panchal draining clear yellow urine - Psychiatric oriented to time, oriented to person, oriented to place Results - Labs 11/21/20 06:51 11/21/20 06:51 Abnormal Lab Results - Last 24 Hours (Table) 11/21/20 11/21/20 11/21/20 Range/Units 06:51 06:51 13:15 RBC 3.53 L (3.80-5.40) m/uL Hgb 10.3 L (11.4-16.0) gm/dL MCHC 30.3 L (31.0-37.0) g/dL RDW 16.7 H (11.5-15.5) % Lymphocytes # 0.7 L (1.0-4.8) k/uL Creatinine 0.37 L (0.52-1.04) mg/dL Glucose 125 H (74-99) mg/dL Total Protein 6.1 L (6.3-8.2) g/dL Albumin 3.2 L (3.5-5.0) g/dL Urine Appearance Cloudy H (Clear) Ur Specific [place] 1.037 H (1.001-1.035) Urine Protein 1+ H (Negative) Ur Leukocyte Esterase Moderate H (Negative) Urine WBC 20 H (0-5) /hpf Urine Bacteria Rare H (None) /hpf Urine Mucus Rare H (None) /hpf Microbiology - Last 24 Hours (Table) 11/21/20 13:15 Urine Culture - Preliminary Urine,Voided Diabetes panel 11/21/20 Range/Units 06:51 Sodium 139 (137-145) mmol/L Potassium 5.1 (3.5-5.1) mmol/L Chloride 107 (98-107) mmol/L Carbon Dioxide 24 (22-30) mmol/L BUN 16 (7-17) mg/dL Creatinine 0.37 L (0.52-1.04) mg/dL Glucose 125 H (74-99) mg/dL Calcium 8.6 (8.4-10.2) mg/dL AST 29 (14-36) U/L ALT 13 (4-34) U/L Alkaline Phosphatase 53 (38-126) U/L Total Protein 6.1 L (6.3-8.2) g/dL Albumin 3.2 L (3.5-5.0) g/dL Calcium panel 11/21/20 Range/Units 06:51 Calcium 8.6 (8.4-10.2) mg/dL Albumin 3.2 L (3.5-5.0) g/dL Pituitary panel 11/21/20 Range/Units 06:51 Sodium 139 (137-145) mmol/L Potassium 5.1 (3.5-5.1) mmol/L Chloride 107 (98-107) mmol/L Carbon Dioxide 24 (22-30) mmol/L BUN 16 (7-17) mg/dL Creatinine 0.37 L (0.52-1.04) mg/dL Glucose 125 H (74-99) mg/dL Calcium 8.6 (8.4-10.2) mg/dL Adrenal panel 11/21/20 Range/Units 06:51 Sodium 139 (137-145) mmol/L Potassium 5.1 (3.5-5.1) mmol/L Chloride 107 (98-107) mmol/L Carbon Dioxide 24 (22-30) mmol/L BUN 16 (7-17) mg/dL Creatinine 0.37 L (0.52-1.04) mg/dL Glucose 125 H (74-99) mg/dL Calcium 8.6 (8.4-10.2) mg/dL Total Bilirubin 0.8 (0.2-1.3) mg/dL AST 29 (14-36) U/L ALT 13 (4-34) U/L Alkaline Phosphatase 53 (38-126) U/L Total Protein 6.1 L (6.3-8.2) g/dL Albumin 3.2 L (3.5-5.0) g/dL Assessment and Plan Assessment: 75-year-old female admitted to the hospital with shortness of breath cough. Had a recent fall, sustained injuries but no fractures. Had urinary retention on last hospitalization, has failed a trial of void as an outpatient. Patient currently has a Panchal catheter in place Plan: -Trial of void prior to discharge -Follow up on urine culture, ID is on board -Follow-up as an outpatient in 1-2 weeks
[2020-11-22] MEDS: GABAPENTIN 100 MG CAP PO SCH ×3 (05:29→20:46)
[2020-11-22] MEDS: MELOXICAM 7.5 MG TAB PO SCH (07:52)
[2020-11-22] MEDS: predniSONE 10 MG TAB PO SCH (07:52)
[2020-11-22] MEDS: FAMOTIDINE 20 MG TAB PO SCH ×2 (07:52→20:45)
[2020-11-22] MEDS: PIPERACILLIN-TAZOBACTAM 3.375 GM in SODIUM CHLORIDE 0.9% 100 ML IVPB SCH ×3 (07:52→23:09)
[2020-11-22] MEDS: ASPIRIN 81 MG PO SCH (07:52)
[2020-11-22] MEDS: CHOLECALCIFEROL 25 MCG (1000 IU) TABLET PO SCH (07:52)
[2020-11-22] MEDS: MECLIZINE 12.5 MG TAB PO SCH ×3 (07:53→20:47)
[2020-11-22] MEDS: METOPROLOL TARTRATE 12.5 MG TAB PO SCH ×3 (07:53→21:02)
[2020-11-22] MEDS: PSYLLIUM HUSK 100% 6 GM PACKET PO SCH (07:54)
[2020-11-22] MEDS: NIFEdipine XL 30 MG TAB.ER.24 PO SCH ×2 (07:54→20:47)
[2020-11-22 11:20] LABS: HCT 34.4 % (37.2-46.3); HGB 9.5 g/dL (12.0-15.0); MCHC 27.6 g/dL (32.0-37.0); MCV 104.9 fL (80.0-97.0); Mean Platelet Volume 10.2 fL (9.5-12.2); Platelet Count 313 X 10*3/uL (140-440); RBC 3.28 X 10*6/uL (4.10-5.20); RDW 16.7 % (11.5-14.5)
[2020-11-22 11:48] LABS: Albumin 3.6 g/dL (3.80-4.90); Albumin/Globulin Ratio 2.25 (1.60-3.17); Anion Gap 8.3 mmol/L (4.00-12.00); Calcium 8.3 mg/dL (8.7-10.3); Carbon Dioxide 25.7 mmol/L (21.6-31.8); Globulin 1.6 g/dL (1.6-3.3); Potassium 4.3 mmol/L (3.5-5.5); Total Bilirubin 0.3 mg/dL (0.2-1.2); Total Protein 5.2 g/dL (6.2-8.2)
[2020-11-22] MEDS ORDERED: IPRATROPIUM-ALBUTEROL 3 ML NEB INHALATION PRN (11:51)
[2020-11-22 12:30] LABS: Basophils # (A) 0.04 X 10*3/uL (0.00-0.10); Basophils % (A) 0.3 %; Eosinophils # (A) 0.22 X 10*3/uL (0.04-0.35); Eosinophils % (A) 1.8 %; Lymphocytes # (A) 1.73 X 10*3/uL (0.90-5.00); Lymphocytes % (A) 14.1 %; Monocytes # (A) 2.15 X 10*3/uL (0.20-1.00); Monocytes % (A) 17.5 %; Neutrophils # (A) 8.06 X 10*3/uL (1.80-7.70); Neutrophils % (A) 65.5 %
[2020-11-22 12:31] LABS: Crenated RBC 2+
[2020-11-22] MEDS: IPRATROPIUM-ALBUTEROL 3 ML NEB INHALATION SCH ×3 (12:31→19:20)
[2020-11-22] MEDS ORDERED: DICYCLOMINE 10 MG CAP PO PRN (12:44)
[2020-11-22] MEDS ORDERED: VANCOMYCIN TROUGH DUE 1 EACH MISC MISCELLANE ONE (13:00)
--- NOTE | 2020-11-22 16:01 | P.PN ---
Subjective Progress Note Date: 11/22/20 Principal diagnosis: Shortness of breath. This is a 75-year-old female that is transferred down from [facility]. She lives up in the [facility] area. The patient was recently diagnosed with a urinary tract infection and pneumonia. She was also diagnosed with sepsis and p laced on oxygen at 3 L. Typically she is not on oxygen therapy. The patient was transferred down to for further management and evaluation. Her complaints include primarily shortness of breath, and cough. She's not producing much or any phlegm. She denies any chest pain. She also denies any nausea, vomiting, or diarrhea. She denied any fever or chills. She did recently fall, and injured her back. Apparently there were no fractures noted. Currently, her chest x-ray showing diffuse bilateral infiltrates. Her primary care provider is Dr. Darcy Araujo. Chest x-ray showed bilateral infiltrates, right greater than left. Her COVID 19 testing was negative. Her white count was 8.1 down from 13.3, white count 10.3, hematocrit 34.1, and platelet count 314,000. Sodium was 139, potassium 5.1, chloride 107, CO2 24, anion gap 8, BUN 16, creatinine 0.37. Her urine was yellow and cloudy with a specific gravity 1.037. Her leukocyte esterase test was moderately positive with 20 WBCs, and rare bacteria. Currently, she is on vancomycin and also Zosyn. Culture data including blood sampling, sputum, and urine are either pending or negative. Clinically, she was requiring 10 L high flow nasal cannula for saturations between 93-97%. She did not appear to have any significant distress. Progress note dated 11/22/2020. 75-year-old female that we saw yesterday in consultation. She was transferred down from [facility], with urinary tract infection and pneumonia. Currently, she is on 10 L high flow nasal O2. Today, she complains mostly of nasal congestion and stuffiness. We recommended some Flonase nasal spray for that. In addition, because of her diffuse bilateral infiltrates, we went ahead and ordered a CT angiogram. Her white count is 12.3, hemoglobin 9.5, hematocrit 34.4, and platelet count 313,000. Sodium is 144, potassium 4.3, chlorides 110, CO2 26, anion gap 8, BUN and creatinine of 20 and 0.5. Her urinalysis from yesterday shows a urine to be yellow and cloudy, with moderate positive leukocyte esterase, 20 WBCs, and rare bacteria. Coronavirus testing was negative although she did have COVID 19 in the past. Current temperature is 98.1, heart rate 80, respiratory rate 16, blood pressure 107/66, with a mean of 79, and saturations are 93% 10 L high flow nasal O2. Objective - Vital Signs Vital signs: Vital Signs Temp 98.1 F 11/22/20 14:00 Pulse 80 11/22/20 15:34 Resp 16 11/22/20 14:00 BP 107/66 11/22/20 14:00 Pulse Ox 93 L 11/22/20 14:00 Intake & Output 11/21/20 11/22/20 11/22/20 18:59 06:59 18:59 Output Total 775 Balance -775 Weight 75.75 kg Output: Urine 775 Other: Voiding Method Indwelling Catheter Indwelling Catheter Indwelling Catheter - Exam No acute distress, oriented 3. High flow nasal cannula noted at 10 L. There was no audible wheezing, or use of accessory muscles. HEENT examination is grossly unremarkable. Mucous membranes are moist. No oral lesions. Neck supple. Full range of motion. No adenopathy thyromegaly or neck vein dist ention. Cardiovascular examination reveals regular rhythm rate. S1-S2 normal. No S3 or S4. No discernible murmur noted. Heart sounds are distant, and heart rate is 77 bpm. Lungs reveal coarse bilateral rhonchi. No wheezes or crackles. Breath sounds equal bilaterally. Abdomen soft bowel sounds are heard. No masses or tenderness. Extremities are intact. No cyanosis clubbing or edema. Skin is without rash or lesion. Neurologic examination is brief but nonfocal. - Labs CBC & Chem 7: 11/22/20 06:25 11/22/20 06:25 Labs: Abnormal Lab Results - Last 24 Hours (Table) 11/22/20 11/22/20 Range/Units 06:25 06:25 WBC 12.30 H (4.50-10.00) X 10*3/uL RBC 3.28 L (4.10-5.20) X 10*6/uL Hgb 9.5 L (12.0-15.0) g/dL Hct 34.4 L (37.2-46.3) % MCV 104.9 H (80.0-97.0) fL MCHC 27.6 L (32.0-37.0) g/dL RDW 16.7 H (11.5-14.5) % Immature Gran # 0.10 H (0.00-0.04) X 10*3/uL Neutrophils # 8.06 H (1.80-7.70) X 10*3/uL Monocytes # 2.15 H (0.20-1.00) X 10*3/uL Chloride 110 H (96-109) mmol/L Creatinine 0.5 L (0.6-1.5) mg/dL BUN/Creatinine Ratio 40.00 H (12.00-20.00) Ratio Calcium 8.3 L (8.7-10.3) mg/dL Total Protein 5.2 L (6.2-8.2) g/dL Albumin 3.60 L (3.80-4.90) g/dL Microbiology - Last 24 Hours (Table) 11/21/20 13:15 Urine Culture - Preliminary Urine,Voided Assessment and Plan Assessment: Acute hypoxemic respiratory failure secondary to bilateral pneumonia, currently on 10 L high flow nasal O2. Urinary tract infection, rule out urosepsis. Prior history of COVID 19 pneumonitis. Severe hypoxemic respiratory failure, rule out early acute respiratory distress syndrome (ARDS). History of osteoarthritis. History of pneumonia. History of Raynaud's syndrome. History of progressive systemic sclerosis (PSS). History of varicose veins. History of degenerative disc disease. Lifelong nonsmoker. Plan: Plan dated 11/22/2020. The patient will have a CT angiogram of the chest, to evaluate her bilateral infiltrates. She currently remains on antibiotics in the form of Zosyn. Her other medications appear to be appropriate. We did have some breathing treatments to her regimen today. Continue to watch her very closely. Her oxygen requirements have gone up. We'll wait and see what the CT angiogram shows. Additional recommendations and suggestions are forthcoming. Prognosis is guarded. Labs are reviewed. Medications are reviewed. Additional recommendations and suggestions are forthcoming. We will continue to follow along. Time with Patient: Less than 30
[2020-11-22] MEDS: FLUTICASONE 50MCG/SPRAY NASAL 16GM EA NOSTRIL PRN (16:37)
[2020-11-22] MEDS: ENOXAPARIN 40 MG/0.4 ML SYRINGE SQ SCH (17:38)
--- NOTE | 2020-11-22 18:16 | P.PN ---
Subjective Progress Note Date: 11/22/20 Claribel Ruiz, is a 75-year-old female, who presented to [facility] emergency room with back pain and shortness of breath, she states that she fell about 1 week ago, patient was evaluated at [facility], computed tomography scan of the thoracic spine and the lumbar spine was done and revealed evidence of old T12 vertebral fracture without any evidence for new vertebral fractures, computed tomography scan also revealed extensive bilateral pulmonary infiltrates with bilateral pleural effusions, patient also had evidence of urinary tract infection, she had leukocytosis suggestive of sepsis, she was transferred to [facility] emergency room and then admitted to medical floor for further evaluation and treatment. Patient had several recent admissions to [facility], her last discharge was on 10/22/2020, over the last few months patient had evidence of Covid 19 pneumonia, she also had rectal pain and rectal bleeding and had surgery for hemorrhoids with Dr. Alatorre, she has underlying history of scleroderma, Raynaud's disease, hypertension, history of hyperlipidemia, history of osteoarthritis, history of osteoporosis, history of gastroesophageal reflux disease, history of chronic pain syndrome maintained on narcotics, history of pressure ulcer of the left buttock stage II, history of urinary retention requiring Panchal catheter placement patient was evaluated by urology on previous admission. Patient was evaluated at [facility] emergency room, her vital examination on presentation revealed a temperature of 97.8 pulse 108 respiration 18 blood pressure 102/67 pulse ox 94% on 3 L nasal cannula, her white blood count was 13.3 hemoglobin 10.4 platelet count 311 BUN 19 creatinine 0.44 Li virus PCR was negative. On 11/21/2020 patient was seen and examined on the medical floor she is alert and oriented 3 in no apparent distress she is complaining of stools incontinence patient stated that she is constantly having liquid stool coming out of the rectum she is also complaining of chest tightness and shortness of breath and occasional cough otherwise she denies any complaints. At this point will check stools for C. diff, consultation for gastroenterology was initiated. On 11/22/2020 patient was seen and examined on the medical floor he no apparent distress, she is complaining of shortness of breath she is maintained on oxygen via nasal cannula. Currently at 8 L per minute she has occasional cough she is maintained on IV antibiotic she was evaluated by pulmonary 80 scan angiogram of the chest was ordered however patient refused to have it so far. Otherwise she denies any complaints at this time there is no fever or chills no headache or dizziness no chest pain no nausea or vomiting no abdominal pain no diarrhea no blood in the stools no burning with urination no frequency or urgency and no hematuria Objective - Vital Signs Vital signs: Vital Signs Temp 98.5 F 11/22/20 08:00 Pulse 74 11/22/20 08:00 Resp 16 11/22/20 08:00 BP 124/72 11/22/20 08:00 Pulse Ox 92 L 11/22/20 08:00 Intake & Output 11/21/20 11/22/20 11/22/20 18:59 06:59 18:59 Output Total 775 Balance -775 Weight 75.75 kg Output: Urine 775 Other: Voiding Method Indwelling Catheter Indwelling Catheter - Exam In general patient is alert and oriented 3 in no apparent distress HEENT head normocephalic and atraumatic Neck is supple no JVD no goiter no lymphadenopathy Chest exam reveals a scattered crackles bilaterally no wheezing Cardiac exam reveals regular heart sounds S1 and S2 with 2/6 systolic murmur in the left sternal border Abdomen is soft nontender no organomegaly with normal bowel sounds Extremity exam reveals 1+ edema Neurological examination reveals no gross focal deficit - Labs CBC & Chem 7: 11/22/20 06:25 11/22/20 06:25 Labs: Abnormal Lab Results - Last 24 Hours (Table) 11/21/20 Range/Units 13:15 Urine Appearance Cloudy H (Clear) Ur Specific [place] 1.037 H (1.001-1.035) Urine Protein 1+ H (Negative) Ur Leukocyte Esterase Moderate H (Negative) Urine WBC 20 H (0-5) /hpf Urine Bacteria Rare H (None) /hpf Urine Mucus Rare H (None) /hpf Microbiology - Last 24 Hours (Table) 11/21/20 13:15 Urine Culture - Preliminary Urine,Voided Assessment and Plan Plan: 1. Bilateral pneumonia patient was evaluated at [facility] and transferred to [facility] she was started on IV antibiotics, currently she is on Zosyn, Zithromax, and vancomycin, pulmonary consultation was requested. 2. Bilateral pleural effusion will recheck chest x-ray in a.m. 3. Acute on chronic hypoxic respiratory failure 4. Sepsis as evidenced by leukocytosis, tachycardia, patient received IV fluid boluses and currently she is maintained on IV antibiotics blood pressure is stable and will monitor closely . 5. Recent fall with back pain Will continue with current narcotic regimen and adjust as needed 6. Recent surgery for hemorrhoids, patient is still complaining of pain in the rectal area and stool incontinence, will check stools for C. diff 7. Urinary retention, patient was evaluated by urology on previous admission, she is still has a Panchal catheter, will consult urology again for evaluation. 8. Evidence of urinary tract infection Will continue with current antibiotics awaiting urine and blood culture results 9. Underlying history of scleroderma 10. Underlying history of hypertension 11. Underlying history of hyperlipidemia 12. Underlying history of chronic pain syndrome maintained on narcotics 13. Underlying history of gastroesophageal reflux disease. 14. Underlying history of anxiety disorder. At this time patient is admitted to medical floor, she is started on IV antibiotics Home medications reviewed and reordered Recheck labs and chest x-ray in a.m. Check stools for C. diff, test was negative Consult pulmonary and urology Patient was evaluated by pulmonary computed tomography scan of the chest was ordered patient refused to have it so far is counseled in length to have computed tomography scan she will be given Ativan IV prior to test if she agrees to proceed. Will follow closely
[2020-11-22] MEDS ORDERED: LORazepam 2 MG/ML INJ IV STA (19:15)
[2020-11-22] MEDS: ASCORBIC ACID 500 MG TAB PO SCH (20:44)
[2020-11-22] MEDS: ATORVASTATIN 20 MG TAB PO SCH (20:44)
[2020-11-22] MEDS: MORPHINE SULFATE ER 15 MG TABLET PO SCH (20:45)
[2020-11-22] MEDS: MELATONIN 5 MG TABLET PO SCH (20:45)
[2020-11-22] MEDS: TAMSULOSIN 0.4 MG CAP.ER.24H PO SCH (20:46)
--- NOTE | 2020-11-22 21:44 | CT ---
EXAMINATION TYPE: CT angio chest DATE OF EXAM: 11/22/2020 7:58 PM COMPARISON: 10/17/2020. HISTORY: Dyspnea. CT DLP: 354.8 mGycm Automated exposure control for dose reduction was used. CONTRAST: CTA scan of the thorax is performed with IV Contrast, patient injected with 68ml mL of Isovue 370, pu lmonary embolism protocol. MIP images are created and reviewed. FINDINGS: LUNGS: There is progression of bilateral diffuse marked patchy groundglass opacities. There are small bilateral pleural effusions. No pneumothorax. MEDIASTINUM: There is satisfactory enhancement of the pulmonary artery and its branches, there is no CT evidence for pulmonary embolism. There are scattered small to borderline-enlarged mediastinal lym ph nodes. Mild cardiomegaly. No pericardial effusion is seen. No acute osseous abnormality. There is T12 compression deformity, with interval mild height loss, now approximately 30% height loss. OTHER: No additional significant abnormality is seen. IMPRESSION: PROGRESSION OF BILATERAL DIFFUSE AIRSPACE DISEASE WITH SMALL PLEURAL EFFUSIONS. T12 COMPRESSION DEFORMITY WITH INTERVAL MILD HEIGHT LOSS, CONCERNING FOR ACUTE ON CHRONIC FRACTURE. R ECOMMEND CLINICAL CORRELATION. NO ACUTE PE.
--- NOTE | 2020-11-22 23:13 | PN ---
PROGRESS NOTE DATE OF SERVICE: 11/22/2020 REASON FOR FOLLOWUP: Pneumonia and UTI. INTERVAL HISTORY: Patient is currently afebrile. The patient is breathing slightly comfortably. The patient denies having any chest pain. She did have a cough, not bringing up any sputum. No nausea, no vomiting, no abdominal pain or diarrhea. PHYSICAL EXAMINATION: Blood pressure 92/56, pulse of 92, temperature 97.7. She is 94% on 12 L high-flow oxygen. General description is an elderly female lying in bed in no distress. RESPIRATORY SYSTEM: Unlabored breathing. Coarse breath sounds bases bilaterally. No wheeze. RESPIRATORY SYSTEM: Unlabored breathing. Clear to auscultation anteriorly. ABDOMEN: Soft. No tenderness. LABS: Hemoglobin is 11.5, white count of 12.30, creatinine 0.5. DIAGNOSTIC IMPRESSION AND PLAN: Patient admitted to hospital with sepsis, concerning for pneumonia and urinary tract infection. Patient at this time is covered with Zosyn; to continue while waiting for the culture to finalize. Continue with supportive care. MMODL / IJN: [id number] /
[2020-11-23] MEDS ORDERED: NON FORMULARY DRUG (Alendronate Sodium [Fosamax] 70 MG Tablet) PO SCH (06:00)
[2020-11-23] MEDS: GABAPENTIN 100 MG CAP PO SCH ×3 (06:08→21:12)
[2020-11-23] MEDS: IPRATROPIUM-ALBUTEROL 3 ML NEB INHALATION SCH ×4 (07:58→19:10)
--- NOTE | 2020-11-23 08:44 | P.CONS ---
History of Present Illness - Reason for Consult Consult date: 11/22/20 Stool incontinence Requesting physician: Akbar Swenson - Chief Complaint Shortness of breath - History of Present Illness 75-year-old female with multiple medical comorbidities including osteoarthritis, varicose veins, scleroderma, Raynaud's, and degenerative disc disease who presented to outside hospital for back pain and shortness of breath. Currently the patient is being treated for urinary tract infection and bilateral pneumonia. Patient had complained of incontinence of bowel movements. She reports bowel movements being loose since infection with COVID-19. She generally has 1-2 bowel movements daily but describes episodes of incontinence to bowel movements. She feels that her symptoms are worse with stress and anxiety. No prior history of colonoscopy. No nausea or vomiting reported. She does report some crampy abdominal pain predominantly in the periumbilical region of her abdomen and lower abdomen. Laboratory evaluation on presentation significant for WBC 13.3, hemoglobin 10.4, platelet count 311,000 with a creatinine of 0.44. 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 Does NOT want to ever return there. Spouse was admitted to [facility] in [place] with covid. Pt last spoke to him 09/09 and currently doesnt know his status or whereabouts. Smoking Status: Never smoker Past Alcohol Use History: None Reported Past Drug Use History: None Reported - Past Family History Mother Family Medical History: Dementia, Hypertension Additional Family Medical History / Comment(s): Lived until 89 Father Family Medical History: COPD Additional Family Medical History / Comment(s): in his late 60's from emphysema Medications and Allergies Home Medications Medication Instructions Recorded Confirmed Type NIFEdipine [Nifedical Xl] 30 mg PO BID@0900,2100 06/28/15 11/20/20 History Cholecalciferol [Vitamin D3 (25 1,000 unit PO DAILY@0900 08/27/20 11/20/20 History Mcg = 1000 Iu)] Mycophenolate Mofetil [Cellcept] 500 mg PO TID@0500,1400,2200 08/27/20 11/20/20 History Celecoxib [CeleBREX] 200 mg PO BID@0900,2100 08/29/20 11/20/20 History Ascorbic Acid [Vitamin C] 1,000 mg PO HS@209909/11/20 11/20/20 History Gabapentin [Neurontin] 200 mg PO TID@0600,1400,2200 09/11/20 11/20/20 History Alendronate Sodium [Fosamax] 70 mg PO WE@0600 10/06/20 11/20/20 History Aspirin 81 mg PO DAILY@0900 10/06/20 11/20/20 History Famotidine [Pepcid] 20 mg PO BID@0900,2100 10/06/20 11/20/20 History Meclizine [Antivert] 12.5 mg PO TID@0900,1400,2200 10/06/20 11/20/20 History Sennosides-Docusate Sodium 1 tab PO DAILY PRN 10/06/20 11/20/20 History [Senokot-S] Acetaminophen Tab [Tylenol] 650 mg PO Q6HR PRN tab 10/22/20 11/20/20 Rx Magnesium Hydroxide [Milk of 7,200 mg PO DAILY PRN ml 10/22/20 11/20/20 Rx Magnesia Concentrate] bisacodyL [Dulcolax] 10 mg RECTAL DAILY PRN supp 10/22/20 11/20/20 Rx polyethylene glycoL 3350 [Miralax] 17 gm PO DAILY PRN powd.pack 10/22/20 11/20/20 Rx Atorvastatin [Lipitor] 20 mg PO HS@209911/20/20 11/20/20 History HYDROcodone/APAP 10-325MG [[place] 1 tab PO Q6H PRN 11/20/20 11/20/20 History 10-325] Melatonin 5 mg PO HS@209911/20/20 11/20/20 History Metoprolol Tartrate [Lopressor] 12.5 mg PO BID@0900,2100 11/20/20 11/20/20 Histo ry Morphine Sulfate ER [Ms Contin] 15 mg PO HS@209911/20/20 11/20/20 History Ondansetron [Zofran] 4 mg PO Q8H PRN 11/20/20 11/20/20 History Psyllium Husk 100% [Metamucil 6 gm PO DAILY@0900 11/20/20 11/20/20 History Packet] SILVER sulfADIAZINE CREAM 1 applic TOPICAL BID 11/20/20 11/20/20 History [Silvadene Cream] Tamsulosin HCl [Flomax] 0.4 mg PO HS@209911/20/20 11/20/20 History predniSONE 10 mg PO DAILY@0900 11/20/20 11/20/20 History Allergies Allergy/AdvReac Type Severity Reaction Status Date / Time clindamycin HCl Allergy Rash/Hives Verified 11/20/20 13:11 [From Cleocin] clindamycin palmitate HCl Allergy Rash/Hives Verified 11/20/20 13:11 [From Cleocin] clindamycin phosphate Allergy Rash/Hives Verified 11/20/20 13:11 [From Cleocin] latex Allergy Rash/Hives Verified 11/20/20 13:11 Physical Exam Vitals: Vital Signs Temp Pulse Resp BP Pulse Ox 11/22/20 08:15 16 11/22/20 08:00 98.5 F 74 16 124/72 92 L 11/22/20 03:39 97.8 F 74 16 119/67 94 L 11/21/20 20:00 82 16 11/21/20 19:08 97.7 F 82 16 117/63 94 L 11/21/20 14:00 97.9 F 88 16 111/70 93 L Intake and Output 11/21/20 11/22/20 11/22/20 22:59 06:59 14:59 Output Total 775 Balance -775 Output: Urine 775 Other: Voiding Method Indwelling Catheter Indwelling Catheter Weight 75.75 kg Results CBC & Chem 7: 11/22/20 06:25 11/22/20 06:25 Labs: Abnormal Lab Results - Last 24 Hours (Table) 11/21/20 11/22/20 11/22/20 Range/Units 13:15 06:25 06:25 WBC 12.30 H (4.50-10.00) X 10*3/uL RBC 3.28 L (4.10-5.20) X 10*6/uL Hgb 9.5 L (12.0-15.0) g/dL Hct 34.4 L (37.2-46.3) % MCV 104.9 H (80.0-97.0) fL MCHC 27.6 L (32.0-37.0) g/dL RDW 16.7 H (11.5-14.5) % Chloride 110 H (96-109) mmol/L Creatinine 0.5 L (0.6-1.5) mg/dL BUN/Creatinine Ratio 40.00 H (12.00-20.00) Ratio Calcium 8.3 L (8.7-10.3) mg/dL Total Protein 5.2 L (6.2-8.2) g/dL Albumin 3.60 L (3.80-4.90) g/dL Urine Appearance Cloudy H (Clear) Ur Specific [place] 1.037 H (1.001-1.035) Urine Protein 1+ H (Negative) Ur Leukocyte Esterase Moderate H (Negative) Urine WBC 20 H (0-5) /hpf Urine Bacteria Rare H (None) /hpf Urine Mucus Rare H (None) /hpf Microbiology - Last 24 Hours (Table) 11/21/20 13:15 Urine Culture - Preliminary Urine,Voided Assessment and Plan (1) Incontinence of feces Narrative/Plan: 75-year-old female with multiple medical comorbidities presenting for shortness of breath and back pain. Currently receiving treatment for pneumonia and urinary tract infection. She reported some loose bowel movements since infection with COVID-19 as well as some incontinence of stool. Bowel movements are generally 1-2 times a day and loose with some urgency and episodes of incontinence. No prior colonoscopy. Unclear if symptoms are post viral in nature, related to functional bowel disorder, stress-induced, or other etiology. Current Visit: Yes Status: Acute Code(s): R15.9 - FULL INCONTINENCE OF FECES SNOMED Code(s): 84649914 (2) Pneumonia Current Visit: Yes Status: Acute Code(s): J18.9 - PNEUMONIA, UNSPECIFIED ORGANISM SNOMED Code(s): 649765444 (3) Urinary tract infection Current Visit: Yes Status: Acute Code(s): N39.0 - URINARY TRACT INFECTION, SITE NOT SPECIFIED SNOMED Code(s): 13065044 Plan: Supportive care Okay for diet as tolerated Continue other medical management per primary team and consultants No plans for endoscopic evaluation at this time We will discontinue Metamucil and change to oral fiber tabs for stool bulking Patient can follow-up after discharge for discussion on colonoscopy, this has been explained to the patient at length Bentyl added as needed for abdominal cramping and urgency of bowel movements Thank you for allowing us to participate in the care of the patient, the GI service will standby, please call us back with any questions or concerns
[2020-11-23] MEDS: PIPERACILLIN-TAZOBACTAM 3.375 GM in SODIUM CHLORIDE 0.9% 100 ML IVPB SCH ×3 (08:46→23:22)
[2020-11-23] MEDS: METOPROLOL TARTRATE 12.5 MG TAB PO SCH ×2 (08:47→21:12)
[2020-11-23] MEDS: FAMOTIDINE 20 MG TAB PO SCH ×2 (08:47→21:12)
[2020-11-23] MEDS: ASPIRIN 81 MG PO SCH (08:47)
[2020-11-23] MEDS: ENOXAPARIN 40 MG/0.4 ML SYRINGE SQ SCH (08:47)
[2020-11-23] MEDS: CHOLECALCIFEROL 25 MCG (1000 IU) TABLET PO SCH (08:47)
[2020-11-23] MEDS: predniSONE 10 MG TAB PO SCH (08:47)
[2020-11-23] MEDS: MECLIZINE 12.5 MG TAB PO SCH ×3 (08:49→21:11)
[2020-11-23] MEDS: NIFEdipine XL 30 MG TAB.ER.24 PO SCH ×2 (08:50→21:12)
[2020-11-23] MEDS: MELOXICAM 7.5 MG TAB PO SCH (08:51)
[2020-11-23 11:09] LABS: Basophils # (A) 0.06 X 10*3/uL (0.00-0.10); Basophils % (A) 0.4 %; Eosinophils # (A) 0.63 X 10*3/uL (0.04-0.35); Eosinophils % (A) 4.3 %; HCT 34.4 % (37.2-46.3); Lymphocytes # (A) 0.84 X 10*3/uL (0.90-5.00); Lymphocytes % (A) 5.7 %; MCH 28.8 pg (27.0-32.0); MCHC 29.1 g/dL (32.0-37.0); MCV 99.1 fL (80.0-97.0); Mean Platelet Volume 10.1 fL (9.5-12.2); Monocytes # (A) 1.36 X 10*3/uL (0.20-1.00); Monocytes % (A) 9.3 %; Neutrophils # (A) 11.63 X 10*3/uL (1.80-7.70); Neutrophils % (A) 79.5 %; Platelet Count 369 X 10*3/uL (140-440); Polychromasia 2+; RBC 3.47 X 10*6/uL (4.10-5.20); RDW 16.2 % (11.5-14.5); WBC 14.64 X 10*3/uL (4.50-10.00)
[2020-11-23 11:36] LABS: Albumin 3.3 g/dL (3.80-4.90); Albumin/Globulin Ratio 1.57 (1.60-3.17); Anion Gap 7.3 mmol/L (4.00-12.00); Calcium 9.1 mg/dL (8.7-10.3); Carbon Dioxide 27.7 mmol/L (21.6-31.8); Globulin 2.1 g/dL (1.6-3.3); Potassium 4.1 mmol/L (3.5-5.5); Total Bilirubin 0.7 mg/dL (0.3-1.2); Total Protein 5.4 g/dL (6.2-8.2)
--- NOTE | 2020-11-23 11:49 | P.PN ---
Subjective Progress Note Date: 11/23/20 Principal diagnosis: Acute hypoxemic respiratory failure secondary to bilateral pneumonia This is a 75-year-old female that is transferred down from [facility]. She lives up in the [facility] area. The patient was recently diagnosed with a urinary tract infection and pneumonia. She was also diagnosed with sepsis and placed on oxygen at 3 L. Typically she is not on oxygen therapy. The patient was transferred down to for further management and evaluation. Her complaints include primarily shortness of breath, and cough. She's not producing much or any phlegm. She denies any chest pain. She also denies any nausea, vomiting, or diarrhea. She denied any fever or chills. She did recently fall, and injured her back. Apparently there were no fractures noted. Currently, her chest x-ray showing diffuse bilateral infiltrates. Her primary care provider is Dr. Darcy Araujo. Chest x-ray showed bilateral infiltrates, right greater than left. Her COVID 19 testing was negative. Her white count was 8.1 down from 13.3, white count 10.3, hematocrit 34.1, and platelet count 314,000. Sodium was 139, potassium 5.1, chloride 107, CO2 24, anion gap 8, BUN 16, c reatinine 0.37. Her urine was yellow and cloudy with a specific gravity 1.037. Her leukocyte esterase test was moderately positive with 20 WBCs, and rare bacteria. Currently, she is on vancomycin and also Zosyn. Culture data including blood sampling, sputum, and urine are either pending or negative. Clinically, she was requiring 10 L high flow nasal cannula for saturations between 93-97%. She did not appear to have any significant distress. Progress note dated 11/22/2020. 75-year-old female that we saw yesterday in consultation. She was transferred down from [facility], with urinary tract infection and pneumonia. Currently, she is on 10 L high flow nasal O2. Today, she complains mostly of nasal congestion and stuffiness. We recommended some Flonase nasal spray for that. In addition, because of her diffuse bilateral infiltrates, we went ahead and ordered a CT angiogram. Her white count is 12.3, hemoglobin 9.5, hematocrit 34.4, and platelet count 313,000. Sodium is 144, potassium 4.3, chlorides 110, CO2 26, anion gap 8, BUN and creatinine of 20 and 0.5. Her urinalysis from yesterday shows a urine to be yellow and cloudy, with moderate positive leukocyte esterase, 20 WBCs, and rare bacteria. Coronavirus testing was negative although she did have COVID 19 in the past. Current temperature is 98.1, heart rate 80, respiratory rate 16, blood pressure 107/66, with a mean of 79, and saturations are 93% 10 L high flow nasal O2. Patient is seen today 11/23/2020 in follow-up on the regular medical floor. She is currently sitting up in a chair at the bedside. Awake and alert in no acute distress. Maintaining O2 saturations up to 100% on 15 L nonrebreather mask. She's afebrile. Tachycardic. White count 14.6. Hemoglobin 10.0. Sodium 141. Potassium 4.1. Creatinine 0.5. She remains on bronchodilators, insulin. Antibiotics in the form of Zosyn. Objective - Vital Signs Vital signs: Vital Signs Temp 97.9 F 11/23/20 08:00 Pulse 111 H 11/23/20 11:37 Resp 20 11/23/20 11:37 BP 116/63 11/23/20 08:00 Pulse Ox 99 11/23/20 08:00 Intake & Output 11/22/20 11/23/20 11/23/20 18:59 06:59 18:59 Output Total 1575 Balance -1575 Output: Urine 1575 Other: Voiding Method Indwelling Catheter Indwelling Catheter Indwelling Catheter - Exam GENERAL EXAM: Alert, 75-year-old female patient, on 15 L nonrebreather mask. Comfortable in no apparent distress. HEAD: Normocephalic. EYES: Normal reaction of pupils, equal size. NOSE: Clear with pink turbinates. THROAT: No erythema or exudates. NECK: No masses, no JVD. CHEST: No chest wall deformity. LUNGS: Equal air entry with bilateral scattered rhonchi, diminished. CVS: S1 and S2 normal with no audible murmur, regular rhythm. ABDOMEN: No hepatosplenomegaly, normal bowel sounds, no guarding or rigidity. SPINE: No scoliosis or deformity SKIN: No rashes CENTRAL NERVOUS SYSTEM: No focal deficits, tone is normal in all 4 extremities. EXTREMITIES: There is no peripheral edema. No clubbing, no cyanosis. Peripheral pulses are intact. - Labs CBC & Chem 7: 11/23/20 06:55 11/23/20 06:55 Labs: Abnormal Lab Results - Last 24 Hours (Table) 11/22/20 11/22/20 11/22/20 Range/Units 06:25 06:25 06:25 WBC (4.50-10.00) X 10*3/uL RBC (4.10-5.20) X 10*6/uL Hgb (12.0-15.0) g/dL Hct (37.2-46.3) % MCV (80.0-97.0) fL MCHC (32.0-37.0) g/dL RDW (11.5-14.5) % Immature Gran # 0.10 H (0.00-0.04) X 10*3/uL Neutrophils # 8.06 H (1.80-7.70) X 10*3/uL Lymphocytes # (0.90-5.00) X 10*3/uL Monocytes # 2.15 H (0.20-1.00) X 10*3/uL Eosinophils # (0.04-0.35) X 10*3/uL Chloride 110 H (96-109) mmol/L Creatinine 0.5 L (0.6-1.5) mg/dL BUN/Creatinine Ratio 40.00 H (12.00-20.00) Ratio Calcium 8.3 L (8.7-10.3) mg/dL Total Protein 5.2 L (6.2-8.2) g/dL Albumin 3.60 L (3.80-4.90) g/dL Albumin/Globulin Ratio (1.60-3.17) g/dL Procalcitonin 0.14 H (0.02-0.09) ng/mL 11/23/20 11/23/20 Range/Units 06:55 06:55 WBC 14.64 H (4.50-10.00) X 10*3/uL RBC 3.47 L (4.10-5.20) X 10*6/uL Hgb 10.0 L (12.0-15.0) g/dL Hct 34.4 L (37.2-46.3) % MCV 99.1 H (80.0-97.0) fL MCHC 29.1 L (32.0-37.0) g/dL RDW 16.2 H (11.5-14.5) % Immature Gran # 0.12 H (0.00-0.04) X 10*3/uL Neutrophils # 11.63 H (1.80-7.70) X 10*3/uL Lymphocytes # 0.84 L (0.90-5.00) X 10*3/uL Monocytes # 1.36 H (0.20-1.00) X 10*3/uL Eosinophils # 0.63 H (0.04-0.35) X 10*3/uL Chloride (96-109) mmol/L Creatinine 0.5 L (0.6-1.5) mg/dL BUN/Creatinine Ratio 22.00 H (12.00-20.00) Ratio Calcium (8.7-10.3) mg/dL Total Protein 5.4 L (6.2-8.2) g/dL Albumin 3.30 L (3.80-4.90) g/dL Albumin/Globulin Ratio 1.57 L (1.60-3.17) g/dL Procalcitonin (0.02-0.09) ng/mL Microbiology - Last 24 Hours (Table) 11/21/20 13:15 Urine Culture - Final Urine,Voided Assessment and Plan Assessment: 1 Acute hypoxemic respiratory failure secondary to bilateral pneumonia, currently on 15 L nonrebreather mask. 2 Urinary tract infection, rule out urosepsis. Chronic Panchal. 3 Prior history of COVID 19 pneumonitis. 4 Severe hypoxemic respiratory failure, rule out early acute respiratory distress syndrome (ARDS). 5 History of osteoarthritis. 6 History of pneumonia. 7 History of Raynaud's syndrome. 8 History of progressive systemic sclerosis (PSS). 9 History of varicose veins. 10 History of degenerative disc disease. 11 Lifelong nonsmoker. Plan: The patient was seen and evaluated by Dr. Arredondo We will continue the current treatment plan for now Titrate down the FiO2 as tolerated We'll continue to follow I, the cosigning physician, performed a history & physical examination of the patient. Lungs sounds scattered rhonchi, diminished. Maintaining good O2 saturations in the 90s on 50 L nonrebreather. I discussed the assessment and plan of care with my nurse practitioner, Marti Espinoza. I attest to the above note as dictated by her.
--- NOTE | 2020-11-23 14:40 | P.PN ---
Subjective Progress Note Date: 11/23/20 Principal diagnosis: Stool incontinence Patient seen and examined sitting up in bed. Patient denies any abdominal pain, nausea, or vomiting. Has had no bowel movements today. Having some increased difficulty in respiratory status. Objective - Vital Signs Vital signs: Vital Signs Temp 97.9 F 11/23/20 08:00 Pulse 111 H 11/23/20 11:37 Resp 20 11/23/20 11:37 BP 116/63 11/23/20 08:00 Pulse Ox 99 11/23/20 08:00 Intake & Output 11/22/20 11/23/20 11/23/20 18:59 06:59 18:59 Output Total 1575 Balance -1575 Output: Urine 1575 Other: Voiding Method Indwelling Catheter Indwelling Catheter Indwelling Catheter - Exam General appearance: The patient is alert, oriented, appears in no acute distress. HET: Head is normocephalic and atraumatic. Conjunctiva pink. Sclera anicteric. Neck: Supple without lymphadenopathy. Abdomen: Soft, nontender, nondistended with bowel sounds. No guarding or rigidity. Extremities: Normal skin color and turgor. No pedal edema Skin: No rashes, no jaundice Neurological: No focal deficits. Alert and oriented 3. - Labs CBC & Chem 7: 11/23/20 06:55 11/23/20 06:55 Labs: Abnormal Lab Results - Last 24 Hours (Table) 11/22/20 11/23/20 11/23/20 Range/Units 06:25 06:55 06:55 WBC 14.64 H (4.50-10.00) X 10*3/uL RBC 3.47 L (4.10-5.20) X 10*6/uL Hgb 10.0 L (12.0-15.0) g/dL Hct 34.4 L (37.2-46.3) % MCV 99.1 H (80.0-97.0) fL MCHC 29.1 L (32.0-37.0) g/dL RDW 16.2 H (11.5-14.5) % Immature Gran # 0.12 H (0.00-0.04) X 10*3/uL Neutrophils # 11.63 H (1.80-7.70) X 10*3/uL Lymphocytes # 0.84 L (0.90-5.00) X 10*3/uL Monocytes # 1.36 H (0.20-1.00) X 10*3/uL Eosinophils # 0.63 H (0.04-0.35) X 10*3/uL Creatinine 0.5 L (0.6-1.5) mg/dL BUN/Creatinine Ratio 22.00 H (12.00-20.00) Ratio Total Protein 5.4 L (6.2-8.2) g/dL Albumin 3.30 L (3.80-4.90) g/dL Albumin/Globulin Ratio 1.57 L (1.60-3.17) g/dL Procalcitonin 0.14 H (0.02-0.09) ng/mL Microbiology - Last 24 Hours (Table) 11/21/20 13:15 Urine Culture - Final Urine,Voided Assessment and Plan (1) Incontinence of feces Narrative/Plan: 75-year-old female with multiple medical comorbidities presenting for shortness of breath and back pain. Currently receiving treatment for pneumonia and urinary tract infection. She reported some loose bowel movements since infection with COVID-19 as well as some incontinence of stool. Bowel movements are generally 1-2 times a day and loose with some urgency and episodes of incontinence. No prior colonoscopy. Unclear if symptoms are post viral in nature, related to functional bowel disorder, stress-induced, or other etiology. Current Visit: Yes Status: Acute Code(s): R15.9 - FULL INCONTINENCE OF FECES SNOMED Code(s): 31004187 (2) Pneumonia Current Visit: Yes Status: Acute Code(s): J18.9 - PNEUMONIA, UNSPECIFIED ORGANISM SNOMED Code(s): 294145180 (3) Urinary tract infection Current Visit: Yes Status: Acute Code(s): N39.0 - URINARY TRACT INFECTION, SITE NOT SPECIFIED SNOMED Code(s): 95619777 Plan: Supportive care Okay for diet as tolerated Continue other medical management per primary team and consultants No plans for endoscopic evaluation at this time We will discontinue Metamucil and change to oral fiber tabs for stool bulking Patient can follow-up after discharge for discussion on colonoscopy, this has been explained to the patient at length Bentyl added as needed for abdominal cramping and urgency of bowel movements Thank you for allowing us to participate in the care of the patient, the GI service will standby, please call us back with any questions or concerns Dr. Gamble I agree with the dictator's note, documented as a scribe by Rose Marie Moreno.
--- NOTE | 2020-11-23 17:00 | P.PN ---
Subjective Progress Note Date: 11/23/20 Claribel Ruiz, is a 75-year-old female, who presented to [facility] emergency room with back pain and shortness of breath, she states that she fell about 1 week ago, patient was evaluated at [facility], computed tomography scan of the thoracic spine and the lumbar spine was done and revealed evidence of old T12 vertebral fracture without any evidence for new vertebral fractures, computed tomography scan also revealed extensive bilateral pulmonary infiltrates with bilateral pleural effusions, patient also had evidence of urinary tract infection, she had leukocytosis suggestive of sepsis, she was transferred to [facility] emergency room and then admitted to medical floor for further evaluation and treatment. Patient had several recent admissions to [facility], her last discharge was on 10/22/2020, over the last few months patient had evidence of Covid 19 pneumonia, she also had rectal pain and rectal bleeding and had surgery for hemorrhoids with Dr. Alatorre, she has underlying history of scleroderma, Raynaud's disease, hypertension, history of hyperlipidemia, history of osteoarthritis, history of osteoporosis, history of gastroesophageal reflux disease, history of chronic pain syndrome maintained on narcotics, history of pressure ulcer of the left buttock stage II, history of urinary retention requiring Panchal catheter placement patient was evaluated by urology on previous admission. Patient was evaluated at [facility] emergency room, her vital examination on presentation revealed a temperature of 97.8 pulse 108 respiration 18 blood pressure 102/67 pulse ox 94% on 3 L nasal cannula, her white blood count was 13.3 hemoglobin 10.4 platelet count 311 BUN 19 creatinine 0.44 Li virus PCR was negative. On 11/21/2020 patient was seen and examined on the medical floor she is alert and oriented 3 in no apparent distress she is complaining of stools incontinence patient stated that she is constantly having liquid stool coming out of the rectum she is also complaining of chest tightness and shortness of breath and occasional cough otherwise she denies any complaints. At this point will check stools for C. diff, consultation for gastroenterology was initiated. On 11/22/2020 patient was seen and examined on the medical floor he no apparent distress, she is complaining of shortness of breath she is maintained on oxygen via nasal cannula. Currently at 8 L per minute she has occasional cough she is maintained on IV antibiotic she was evaluated by pulmonary 80 scan angiogram of the chest was ordered however patient refused to have it so far. Otherwise she denies any complaints at this time there is no fever or chills no headache or dizziness no chest pain no nausea or vomiting no abdominal pain no diarrhea no blood in the stools no burning with urination no frequency or urgency and no hematuria. On 11/23/2020 patient was seen and examined on the medical floor she is somnolent arousable answer a few questions and returns to sleep she is maintained on oxygen via nasal cannula currently she is on 6 L/m she denies any chest pain denies any abdominal pain no nausea or vomiting she still has shortness of breath especially with any activity she is having some cough without any sputum production she is still having some stool incontinence Objective - Vital Signs Vital signs: Vital Signs Temp 99.1 F 11/23/20 01:51 Pulse 119 H 11/23/20 08:12 Resp 20 11/23/20 08:12 BP 138/83 11/23/20 01:51 Pulse Ox 100 11/23/20 07:59 Intake & Output 11/22/20 11/23/20 11/23/20 18:59 06:59 18:59 Output Total 1575 Balance -1575 Output: Urine 1575 Other: Voiding Method Indwelling Catheter Indwelling Catheter - Exam In general patient is alert and oriented 3 in no apparent distress HEENT head normocephalic and atraumatic Neck is supple no JVD no goiter no lymphadenopathy Chest exam reveals a scattered crackles bilaterally no wheezing Cardiac exam reveals regular heart sounds S1 and S2 with 2/6 systolic murmur in the left sternal border Abdomen is soft nontender no organomegaly with normal bowel sounds Extremity exam reveals 1+ edema Neurological examination reveals no gross focal deficit - Labs CBC & Chem 7: 11/23/20 06:55 11/23/20 06:55 Labs: Abnormal Lab Results - Last 24 Hours (Table) 11/22/20 11/22/20 11/22/20 Range/Units 06:25 06:25 06:25 WBC 12.30 H (4.50-10.00) X 10*3/uL RBC 3.28 L (4.10-5.20) X 10*6/uL Hgb 9.5 L (12.0-15.0) g/dL Hct 34.4 L (37.2-46.3) % MCV 104.9 H (80.0-97.0) fL MCHC 27.6 L (32.0-37.0) g/dL RDW 16.7 H (11.5-14.5) % Immature Gran # 0.10 H (0.00-0.04) X 10*3/uL Neutrophils # 8.06 H (1.80-7.70) X 10*3/uL Monocytes # 2.15 H (0.20-1.00) X 10*3/uL Chloride 110 H (96-109) mmol/L Creatinine 0.5 L (0.6-1.5) mg/dL BUN/Creatinine Ratio 40.00 H (12.00-20.00) Ratio Calcium 8.3 L (8.7-10.3) mg/dL Total Protein 5.2 L (6.2-8.2) g/dL Albumin 3.60 L (3.80-4.90) g/dL Procalcitonin 0.14 H (0.02-0.09) ng/mL Microbiology - Last 24 Hours (Table) 11/21/20 13:15 Urine Culture - Final Urine,Voided Assessment and Plan Plan: 1. Bilateral pneumonia patient was evaluated at [facility] and transferred to [facility] she was started on IV antibiotics, currently she is on Zosyn, Zithromax, and vancomycin, pulmonary consultation was requested. 2. Bilateral pleural effusion will recheck chest x-ray in a.m. 3. Acute on chronic hypoxic respiratory failure 4. Sepsis as evidenced by leukocytosis, tachycardia, patient received IV fluid boluses and currently she is maintained on IV antibiotics blood pressure is stable and will monitor closely . 5. Recent fall with back pain Will continue with current narcotic regimen and adjust as needed 6. Recent surgery for hemorrhoids, patient is still complaining of pain in the rectal area and stool incontinence, will check stools for C. diff 7. Urinary retention, patient was evaluated by urology on previous admission, she is still has a Panchal catheter, will consult urology again for evaluation. 8. Evidence of urinary tract infection Will continue with current antibiotics awaiting urine and blood culture results 9. Underlying history of scleroderma 10. Underlying history of hypertension 11. Underlying history of hyperlipidemia 12. Underlying history of chronic pain syndrome maintained on narcotics 13. Underlying history of gastroesophageal reflux disease. 14. Underlying history of anxiety disorder. At this time patient is admitted to medical floor, she is started on IV antibiotics Home medications reviewed and reordered Recheck labs and chest x-ray in a.m. Check stools for C. diff, test was negative Consult pulmonary and urology Patient was evaluated by pulmonary computed tomography scan of the chest was ordered patient refused to have it so far is counseled in length to have computed tomography scan she will be given Ativan IV prior to test if she agrees to proceed. Will follow closely
[2020-11-23] MEDS: ASCORBIC ACID 500 MG TAB PO SCH (21:11)
[2020-11-23] MEDS: MELATONIN 5 MG TABLET PO SCH (21:12)
[2020-11-23] MEDS: MORPHINE SULFATE ER 15 MG TABLET PO SCH (21:12)
[2020-11-23] MEDS: ATORVASTATIN 20 MG TAB PO SCH (21:12)
[2020-11-23] MEDS: TAMSULOSIN 0.4 MG CAP.ER.24H PO SCH (21:12)
--- NOTE | 2020-11-23 23:11 | PN ---
PROGRESS NOTE DATE OF SERVICE: 11/23/2020 REASON FOR FOLLOWUP: Pneumonia and UTI. INTERVAL HISTORY: The patient is currently afebrile. The patient is breathing comfortably. The patient denies having any chest pain. She did have a cough, not bringing up any sputum. No nausea, no vomiting, no abdominal pain or diarrhea. PHYSICAL EXAMINATION: Blood pressure 109/63, pulse of 87, temperature 97.6. She is 96% on high-flow oxygen. General description is an elderly female up in the bed in no distress. RESPIRATORY SYSTEM: Unlabored breathing with decreased intensity of breath sounds. No wheeze. HEART: S1, S2. Regular rate and rhythm. ABDOMEN: Soft. No tenderness. LABS: Hemoglobin is 10, white count 14.64. BUN of 11, creatinine 0.5. DIAGNOSTIC IMPRESSION AND PLAN: Patient admitted to hospital with concern for sepsis/pneumonia plus/minus urinary tract infection in this patient covered with Zosyn. Cultures are currently pending. Continue supportive care. MMODL / IJN: [id number] /
[2020-11-24] MEDS: GABAPENTIN 100 MG CAP PO SCH ×3 (05:44→22:16)
[2020-11-24] MEDS: IPRATROPIUM-ALBUTEROL 3 ML NEB INHALATION SCH ×4 (08:33→20:18)
[2020-11-24] MEDS: PIPERACILLIN-TAZOBACTAM 3.375 GM in SODIUM CHLORIDE 0.9% 100 ML IVPB SCH ×2 (09:20→16:21)
[2020-11-24] MEDS: ENOXAPARIN 40 MG/0.4 ML SYRINGE SQ SCH (09:20)
[2020-11-24] MEDS: MELOXICAM 7.5 MG TAB PO SCH (09:21)
[2020-11-24] MEDS: predniSONE 10 MG TAB PO SCH (09:21)
[2020-11-24] MEDS: FAMOTIDINE 20 MG TAB PO SCH ×2 (09:21→22:15)
[2020-11-24] MEDS: ASPIRIN 81 MG PO SCH (09:23)
[2020-11-24] MEDS: METOPROLOL TARTRATE 12.5 MG TAB PO SCH ×2 (09:23→22:13)
[2020-11-24] MEDS: CHOLECALCIFEROL 25 MCG (1000 IU) TABLET PO SCH (09:24)
[2020-11-24] MEDS: MECLIZINE 12.5 MG TAB PO SCH ×3 (09:24→22:16)
[2020-11-24] MEDS: NIFEdipine XL 30 MG TAB.ER.24 PO SCH ×2 (09:26→22:16)
[2020-11-24] MEDS: FLUTICASONE 50MCG/SPRAY NASAL 16GM EA NOSTRIL PRN (09:27)
[2020-11-24 11:08] LABS: Basophils # (A) 0.05 X 10*3/uL (0.00-0.10); Basophils % (A) 0.5 %; Eosinophils # (A) 0.78 X 10*3/uL (0.04-0.35); Eosinophils % (A) 7.1 %; HCT 32.4 % (37.2-46.3); HGB 9.7 g/dL (12.0-15.0); Lymphocytes # (A) 0.91 X 10*3/uL (0.90-5.00); Lymphocytes % (A) 8.3 %; MCH 29.2 pg (27.0-32.0); MCHC 29.9 g/dL (32.0-37.0); MCV 97.6 fL (80.0-97.0); Mean Platelet Volume 10.3 fL (9.5-12.2); Monocytes # (A) 1.35 X 10*3/uL (0.20-1.00); Monocytes % (A) 12.3 %; Neutrophils # (A) 7.78 X 10*3/uL (1.80-7.70); Neutrophils % (A) 70.5 %; Platelet Count 320 X 10*3/uL (140-440); RBC 3.32 X 10*6/uL (4.10-5.20); RDW 15.9 % (11.5-14.5); WBC 11.01 X 10*3/uL (4.50-10.00)
[2020-11-24 11:38] LABS: African American GFR (CKD) 117.3 (60.0-200.0); Albumin 3.1 g/dL (3.80-4.90); Albumin/Globulin Ratio 1.63 (1.60-3.17); Anion Gap 6.8 mmol/L (4.00-12.00); BUN/Creat Ratio 22.5 Ratio (12.00-20.00); Calcium 9.2 mg/dL (8.7-10.3); Carbon Dioxide 27.2 mmol/L (21.6-31.8); Globulin 1.9 g/dL (1.6-3.3); Non-African American GFR(CKD) 101.2 (60.0-200.0); Potassium 3.8 mmol/L (3.5-5.5); Total Bilirubin 0.7 mg/dL (0.3-1.2)
--- NOTE | 2020-11-24 13:33 | P.PN ---
Subjective Progress Note Date: 11/24/20 Principal diagnosis: Acute hypoxemic respiratory failure secondary to bilateral pneumonia This is a 75-year-old female that is transferred down from [facility]. She lives [place] in the [facility] [place]. The patient was recently diagnosed with a urinary tract infection and pneumonia. She was also diagnosed with sepsis and placed on oxygen at 3 L. Typically she is not on oxygen therapy. The patient was transferred down to for further management and evaluation. Her complaints include primarily shortness of breath, and cough. She's not producing much or any phlegm. She denies any chest pain. She also denies any nausea, vomiting, or diarrhea. She denied any fever or chills. She did recently fall, and injured her back. Apparently there were no fractures noted. Currently, her chest x-ray showing diffuse bilateral infiltrates. Her primary care provider is Dr. Darcy Araujo. Chest x-ray showed bilateral infiltrates, right greater than left. Her COVID 19 testing was negative. Her white count was 8.1 down from 13.3, white count 10.3, hematocrit 34.1, and platelet count 314,000. Sodium was 139, potassium 5.1, chloride 107, CO2 24, anion gap 8, BUN 16, c reatinine 0.37. Her urine was yellow and cloudy with a specific gravity 1.037. Her leukocyte esterase test was moderately positive with 20 WBCs, and rare bacteria. Currently, she is on vancomycin and also Zosyn. Culture data including blood sampling, sputum, and urine are either pending or negative. Clinically, she was requiring 10 L high flow nasal cannula for saturations between 93-97%. She did not appear to have any significant distress. Progress note dated 11/22/2020. 75-year-old female that we saw yesterday in consultation. She was transferred down from [facility], with urinary tract infection and pneumonia. Currently, she is on 10 L high flow nasal O2. Today, she complains mostly of nasal congestion and stuffiness. We recommended some Flonase nasal spray for that. In addition, because of her diffuse bilateral infiltrates, we went ahead and ordered a CT angiogram. Her white count is 12.3, hemoglobin 9.5, hematocrit 34.4, and platelet count 313,000. Sodium is 144, potassium 4.3, chlorides 110, CO2 26, anion gap 8, BUN and creatinine of 20 and 0.5. Her urinalysis from yesterday shows a urine to be yellow and cloudy, with moderate positive leukocyte esterase, 20 WBCs, and rare bacteria. Coronavirus testing was negative although she did have COVID 19 in the past. Current temperature is 98.1, heart rate 80, respiratory rate 16, blood pressure 107/66, with a mean of 79, and saturations are 93% 10 L high flow nasal O2. Patient is seen today 11/23/2020 in follow-up on the regular medical floor. She is currently sitting up in a chair at the bedside. Awake and alert in no acute distress. Maintaining O2 saturations up to 100% on 15 L nonrebreather mask. She's afebrile. Tachycardic. White count 14.6. Hemoglobin 10.0. Sodium 141. Potassium 4.1. Creatinine 0.5. She remains on bronchodilators, insulin. Antibiotics in the form of Zosyn. The patient is seen today 11/24/2020 in follow-up on the regular medical floor. She is currently sitting up in bed. Breathing a bit easier today compared to yesterday. Still requiring 10 L high flow nasal cannula. Urine culture revealed no growth. White count 11.0. Hemoglobin 9.7. Sodium 139. Potassium 3.8. Creatinine 0.4. Remains on bronchodilators, prednisone. Antibiotics in the form of Zosyn. Objective - Vital Signs Vital signs: Vital Signs Temp 98 F 11/24/20 07:31 Pulse 110 H 11/24/20 11:52 Resp 18 11/24/20 07:31 BP 114/70 11/24/20 07:31 Pulse Ox 90 L 11/24/20 07:31 Intake & Output 11/23/20 11/24/20 11/24/20 18:59 06:59 18:59 Intake Total 300 Output Total 850 Balance 300 -850 Intake: Intake, IV Titration 100 Amount Piperacillin-Tazobactam 3 100 .375 gm In Sodium Chloride 0.9% 100 ml @ 25 mls/hr IVPB Q8HR [facility] Rx# :[id number] Oral 200 Output: Urine 850 Other: Voiding Method Indwelling Catheter Indwelling Catheter Indwelling Catheter - Exam GENERAL EXAM: Alert, 75-year-old female patient, on 10 L high flow nasal cannula. Comfortable in no apparent distress. HEAD: Normocephalic. EYES: Normal reaction of pupils, equal size. NOSE: Clear with pink turbinates. THROAT: No erythema or exudates. NECK: No masses, no JVD. CHEST: No chest wall deformity. LUNGS: Equal air entry with bilateral scattered rhonchi, diminished. CVS: S1 and S2 normal with no audible murmur, regular rhythm. ABDOMEN: No hepatosplenomegaly, normal bowel sounds, no guarding or rigidity. SPINE: No scoliosis or deformity SKIN: No rashes CENTRAL NERVOUS SYSTEM: No focal deficits, tone is normal in all 4 extremities. EXTREMITIES: There is no peripheral edema. No clubbing, no cyanosis. Peripheral pulses are intact. - Labs CBC & Chem 7: 11/24/20 07:37 11/24/20 07:37 Labs: Abnormal Lab Results - Last 24 Hours (Table) 11/24/20 11/24/20 Range/Units 07:37 07:37 WBC 11.01 H (4.50-10.00) X 10*3/uL RBC 3.32 L (4.10-5.20) X 10*6/uL Hgb 9.7 L (12.0-15.0) g/dL Hct 32.4 L (37.2-46.3) % MCV 97.6 H (80.0-97.0) fL MCHC 29.9 L (32.0-37.0) g/dL RDW 15.9 H (11.5-14.5) % Immature Gran # 0.14 H (0.00-0.04) X 10*3/uL Neutrophils # 7.78 H (1.80-7.70) X 10*3/uL Monocytes # 1.35 H (0.20-1.00) X 10*3/uL Eosinophils # 0.78 H (0.04-0.35) X 10*3/uL Creatinine 0.4 L (0.6-1.5) mg/dL BUN/Creatinine Ratio 22.50 H (12.00-20.00) Ratio Total Protein 5.0 L (6.2-8.2) g/dL Albumin 3.10 L (3.80-4.90) g/dL Assessment and Plan Assessment: 1 Acute hypoxemic respiratory failure secondary to bilateral pneumonia, currently on 10 L high flow nasal cannula. 2 Urinary tract infection, rule out urosepsis. Chronic Panchal. 3 Prior history of COVID 19 pneumonitis. 4 Severe hypoxemic respiratory failure, rule out early acute respiratory distress syndrome (ARDS). 5 History of osteoarthritis. 6 History of pneumonia. 7 History of Raynaud's syndrome. 8 History of progressive systemic sclerosis (PSS). 9 History of varicose veins. 10 History of degenerative disc disease. 11 Lifelong nonsmoker. Plan: The patient was seen and evaluated by Dr. Arredondo We will continue the current treatment plan for now Titrate down the FiO2 as tolerated We'll continue to follow I, the cosigning physician, performed a history & physical examination of the patient. Lungs sounds scattered rhonchi, diminished. Maintaining good O2 saturations in the 90s on 10 L high flow nasal cannula. I discussed the assessment and plan of care with my nurse practitioner, Marti Espinoza. I attest to the above note as dictated by her.
--- NOTE | 2020-11-24 16:49 | P.PN ---
Subjective Progress Note Date: 11/24/20 Claribel Ruiz, is a 75-year-old female, who presented to [facility] emergency room with back pain and shortness of breath, she states that she fell about 1 week ago, patient was evaluated at [facility], computed tomography scan of the thoracic spine and the lumbar spine was done and revealed evidence of old T12 vertebral fracture without any evidence for new vertebral fractures, computed tomography scan also revealed extensive bilateral pulmonary infiltrates with bilateral pleural effusions, patient also had evidence of urinary tract infection, she had leukocytosis suggestive of sepsis, she was transferred to [facility] emergency room and then admitted to medical floor for further evaluation and treatment. Patient had several recent admissions to [facility], her last discharge was on 10/22/2020, over the last few months patient had evidence of Covid 19 pneumonia, she also had rectal pain and rectal bleeding and had surgery for hemorrhoids with Dr. Alatorre, she has underlying history of scleroderma, Raynaud's disease, hypertension, history of hyperlipidemia, history of osteoarthritis, history of osteoporosis, history of gastroesophageal reflux disease, history of chronic pain syndrome maintained on narcotics, history of pressure ulcer of the left buttock stage II, history of urinary retention requiring Panchal catheter placement patient was evaluated by urology on previous admission. Patient was evaluated at [facility] emergency room, her vital examination on presentation revealed a temperature of 97.8 pulse 108 respiration 18 blood pressure 102/67 pulse ox 94% on 3 L nasal cannula, her white blood count was 13.3 hemoglobin 10.4 platelet count 311 BUN 19 creatinine 0.44 Li virus PCR was negative. On 11/21/2020 patient was seen and examined on the medical floor she is alert and oriented 3 in no apparent distress she is complaining of stools incontinence patient stated that she is constantly having liquid stool coming out of the rectum she is also complaining of chest tightness and shortness of breath and occasional cough otherwise she denies any complaints. At this point will check stools for C. diff, consultation for gastroenterology was initiated. On 11/22/2020 patient was seen and examined on the medical floor he no apparent distress, she is complaining of shortness of breath she is maintained on oxygen via nasal cannula. Currently at 8 L per minute she has occasional cough she is maintained on IV antibiotic she was evaluated by pulmonary 80 scan angiogram of the chest was ordered however patient refused to have it so far. Otherwise she denies any complaints at this time there is no fever or chills no headache or dizziness no chest pain no nausea or vomiting no abdominal pain no diarrhea no blood in the stools no burning with urination no frequency or urgency and no hematuria. On 11/23/2020 patient was seen and examined on the medical floor she is somnolent arousable answer a few questions and returns to sleep she is maintained on oxygen via nasal cannula currently she is on 6 L/m she denies any chest pain denies any abdominal pain no nausea or vomiting she still has shortness of breath especially with any activity she is having some cough without any sputum production she is still having some stool incontinence. On 11/24/2020 patient was seen and examined on the medical floor she is still complaining of severe shortness of breath she is complaining of cough without sputum production there is no fever or chills no headache or dizziness no chest pain no palpitation no nausea or vomiting no abdominal pain no diarrhea no blood in the stools no burning with urination no frequency or urgency and no hematuria Objective - Vital Signs Vital signs: Vital Signs Temp 98 F 11/24/20 07:31 Pulse 101 H 11/24/20 08:43 Resp 18 11/24/20 07:31 BP 114/70 11/24/20 07:31 Pulse Ox 90 L 11/24/20 07:31 Intake & Output 11/23/20 11/24/20 11/24/20 18:59 06:59 18:59 Intake Total 300 Output Total 850 Balance 300 -850 Intake: Intake, IV Titration 100 Amount Piperacillin-Tazobactam 3 100 .375 gm In Sodium Chloride 0.9% 100 ml @ 25 mls/hr IVPB Q8HR [facility] Rx# :[id number] Oral 200 Output: Urine 850 Other: Voiding Method Indwelling Catheter Indwelling Catheter - Exam In general patient is alert and oriented 3 in no apparent distress HEENT head normocephalic and atraumatic Neck is supple no JVD no goiter no lymphadenopathy Chest exam reveals a scattered crackles bilaterally no wheezing Cardiac exam reveals regular heart sounds S1 and S2 with 2/6 systolic murmur in the left sternal border Abdomen is soft nontender no organomegaly with normal bowel sounds Extremity exam reveals 1+ edema Neurological examination reveals no gross focal deficit - Labs CBC & Chem 7: 11/24/20 07:37 11/24/20 07:37 Labs: Abnormal Lab Results - Last 24 Hours (Table) 11/23/20 11/23/20 Range/Units 06:55 06:55 WBC 14.64 H (4.50-10.00) X 10*3/uL RBC 3.47 L (4.10-5.20) X 10*6/uL Hgb 10.0 L (12.0-15.0) g/dL Hct 34.4 L (37.2-46.3) % MCV 99.1 H (80.0-97.0) fL MCHC 29.1 L (32.0-37.0) g/dL RDW 16.2 H (11.5-14.5) % Immature Gran # 0.12 H (0.00-0.04) X 10*3/uL Neutrophils # 11.63 H (1.80-7.70) X 10*3/uL Lymphocytes # 0.84 L (0.90-5.00) X 10*3/uL Monocytes # 1.36 H (0.20-1.00) X 10*3/uL Eosinophils # 0.63 H (0.04-0.35) X 10*3/uL Creatinine 0.5 L (0.6-1.5) mg/dL BUN/Creatinine Ratio 22.00 H (12.00-20.00) Ratio Total Protein 5.4 L (6.2-8.2) g/dL Albumin 3.30 L (3.80-4.90) g/dL Albumin/Globulin Ratio 1.57 L (1.60-3.17) g/dL Assessment and Plan Plan: 1. Bilateral pneumonia patient was evaluated at [facility] and transferred to [facility] she was started on IV antibiotics, currently she is on Zosyn, Zithromax, and vancomycin, pulmonary consultation was requested. 2. Bilateral pleural effusion will recheck chest x-ray in a.m. 3. Acute on chronic hypoxic respiratory failure 4. Sepsis as evidenced by leukocytosis, tachycardia, patient received IV fluid boluses and currently she is maintained on IV antibiotics blood pressure is stable and will monitor closely . 5. Recent fall with back pain Will continue with current narcotic regimen and adjust as needed 6. Recent surgery for hemorrhoids, patient is still complaining of pain in the rectal area and stool incontinence, will check stools for C. diff 7. Urinary retention, patient was evaluated by urology on previous admission, she is still has a Panchal catheter, will consult urology again for evaluation. 8. Evidence of urinary tract infection Will continue with current antibiotics awaiting urine and blood culture results 9. Underlying history of scleroderma 10. Underlying history of hypertension 11. Underlying history of hyperlipidemia 12. Underlying history of chronic pain syndrome maintained on narcotics 13. Underlying history of gastroesophageal reflux disease. 14. Underlying history of anxiety disorder. At this time patient is admitted to medical floor, she is started on IV antibiotics Home medications reviewed and reordered Recheck labs and chest x-ray in a.m. Check stools for C. diff, test was negative Consult pulmonary and urology Patient was evaluated by pulmonary computed tomography scan of the chest was ordered patient refused to have it so far is counseled in length to have computed tomography scan she will be given Ativan IV prior to test if she agrees to proceed. Will follow closely
[2020-11-24] MEDS: ASCORBIC ACID 500 MG TAB PO SCH (22:13)
[2020-11-24] MEDS: MORPHINE SULFATE ER 15 MG TABLET PO SCH (22:14)
[2020-11-24] MEDS: ATORVASTATIN 20 MG TAB PO SCH (22:15)
[2020-11-24] MEDS: MELATONIN 5 MG TABLET PO SCH (22:15)
[2020-11-24] MEDS: TAMSULOSIN 0.4 MG CAP.ER.24H PO SCH (22:16)
--- NOTE | 2020-11-24 23:05 | PN ---
PROGRESS NOTE DATE OF SERVICE: 11/24/2020 REASON FOR FOLLOWUP: Pneumonia and UTI. INTERVAL HISTORY: The patient is currently afebrile. The patient is breathing slightly comfortably. Now on 6 L nasal cannula. The patient denies having any chest pain. She is complaining of stuffiness of her nose from the oxygen. Occasional cough. No abdominal pain or diarrhea. PHYSICAL EXAMINATION: Blood pressure 100/63, pulse of 89, temperature 99.7. She is afebrile. She is on 6 L nasal cannula. General description is an elderly female lying in bed in no distress. RESPIRATORY SYSTEM: Unlabored breathing. Coarse breath sounds bilaterally. No wheeze. HEART: S1, S2. Regular rate and rhythm. ABDOMEN: Soft. No tenderness. LAB: Hemoglobin is 9.7, white count 9.01, BUN of 9, creatinine 0.4. Urine is negative. DIAGNOSTIC IMPRESSION AND PLAN: Patient admitted to hospital with concern for possible pneumonia. CT had been showing increased deep interstitial infiltrate, question of infection, possible infectious etiology. She did have elevated white count, though improved, and is covered with empiric Zosyn. Try to obtain a sputum sample and monitor her clinical course closely. MMODL / IJN: [id number] /
[2020-11-25] MEDS: PIPERACILLIN-TAZOBACTAM 3.375 GM in SODIUM CHLORIDE 0.9% 100 ML IVPB SCH ×4 (00:28→23:43)
[2020-11-25] MEDS: GABAPENTIN 100 MG CAP PO SCH ×3 (05:42→21:11)
[2020-11-25 06:43] LABS: Anisocytosis Slight; Basophils # (A) 0.1 k/uL (0-0.2); Basophils % (A) 1 %; Eosinophils # (A) 0.6 k/uL (0-0.7); Eosinophils % (A) 7 %; HCT 32.2 % (34.0-46.0); HGB 10.1 gm/dL (11.4-16.0); Hypochromasia Moderate; Lymphocytes # (A) 1.4 k/uL (1.0-4.8); Lymphocytes % (A) 15 %; MCHC 31.3 g/dL (31.0-37.0); Mean Platelet Volume 7.4; Monocytes # (A) 0.7 k/uL (0-1.0); Monocytes % (A) 7 %; Neutrophils # (A) 6.8 k/uL (1.3-7.7); Neutrophils % (A) 70 %; Platelet Count 340 k/uL (150-450); RBC 3.36 m/uL (3.80-5.40); RDW 16.3 % (11.5-15.5); WBC 9.6 k/uL (3.8-10.6)
[2020-11-25 06:55] LABS: ALT 12 U/L (4-34); AST 19 U/L (14-36); African American GFR (CKD) >90 (>60 ml/min/1.73 sqM); Albumin 2.9 g/dL (3.5-5.0); Albumin/Globulin Ratio 1.3; Alkaline Phosphatase 64 U/L (38-126); Anion Gap 7 mmol/L; Blood Urea Nitrogen 7 mg/dL (7-17); Carbon Dioxide 26 mmol/L (22-30); Chloride 105 mmol/L (98-107); Globulin 2.3 g/dL; Glucose 100 mg/dL (74-99); Non-African American GFR(CKD) >90 (>60 ml/min/1.73 sqM); Potassium 4.1 mmol/L (3.5-5.1); Sodium 138 mmol/L (137-145); Total Bilirubin 0.5 mg/dL (0.2-1.3); Total Protein 5.2 g/dL (6.3-8.2)
[2020-11-25] MEDS: IPRATROPIUM-ALBUTEROL 3 ML NEB INHALATION SCH ×4 (08:12→19:38)
[2020-11-25] MEDS: ENOXAPARIN 40 MG/0.4 ML SYRINGE SQ SCH (08:44)
[2020-11-25] MEDS: ASPIRIN 81 MG PO SCH (08:45)
[2020-11-25] MEDS: NIFEdipine XL 30 MG TAB.ER.24 PO SCH ×2 (08:45→21:10)
[2020-11-25] MEDS: predniSONE 10 MG TAB PO SCH (08:45)
[2020-11-25] MEDS: MECLIZINE 12.5 MG TAB PO SCH ×3 (08:45→21:11)
[2020-11-25] MEDS: CHOLECALCIFEROL 25 MCG (1000 IU) TABLET PO SCH (08:45)
[2020-11-25] MEDS: FAMOTIDINE 20 MG TAB PO SCH ×2 (08:46→21:10)
[2020-11-25] MEDS: METOPROLOL TARTRATE 12.5 MG TAB PO SCH ×2 (08:46→21:10)
[2020-11-25] MEDS: MELOXICAM 7.5 MG TAB PO SCH (08:46)
--- NOTE | 2020-11-25 10:39 | P.PN ---
Subjective Progress Note Date: 11/25/20 Claribel Ruiz, is a 75-year-old female, who presented to [facility] emergency room with back pain and shortness of breath, she states that she fell about 1 week ago, patient was evaluated at [facility], computed tomography scan of the thoracic spine and the lumbar spine was done and revealed evidence of old T12 vertebral fracture without any evidence for new vertebral fractures, computed tomography scan also revealed extensive bilateral pulmonary infiltrates with bilateral pleural effusions, patient also had evidence of urinary tract infection, she had leukocytosis suggestive of sepsis, she was transferred to [facility] emergency room and then admitted to medical floor for further evaluation and treatment. Patient had several recent admissions to [facility], her last discharge was on 10/22/2020, over the last few months patient had evidence of Covid 19 pneumonia, she also had rectal pain and rectal bleeding and had surgery for hemorrhoids with Dr. Alatorre, she has underlying history of scleroderma, Raynaud's disease, hypertension, history of hyperlipidemia, history of osteoarthritis, history of osteoporosis, history of gastroesophageal reflux disease, history of chronic pain syndrome maintained on narcotics, history of pressure ulcer of the left buttock stage II, history of urinary retention requiring Panchal catheter placement patient was evaluated by urology on previous admission. Patient was evaluated at [facility] emergency room, her vital examination on presentation revealed a temperature of 97.8 pulse 108 respiration 18 blood pressure 102/67 pulse ox 94% on 3 L nasal cannula, her white blood count was 13.3 hemoglobin 10.4 platelet count 311 BUN 19 creatinine 0.44 Li virus PCR was negative. On 11/21/2020 patient was seen and examined on the medical floor she is alert and oriented 3 in no apparent distress she is complaining of stools incontinence patient stated that she is constantly having liquid stool coming out of the rectum she is also complaining of chest tightness and shortness of breath and occasional cough otherwise she denies any complaints. At this point will check stools for C. diff, consultation for gastroenterology was initiated. On 11/22/2020 patient was seen and examined on the medical floor he no apparent distress, she is complaining of shortness of breath she is maintained on oxygen via nasal cannula. Currently at 8 L per minute she has occasional cough she is maintained on IV antibiotic she was evaluated by pulmonary 80 scan angiogram of the chest was ordered however patient refused to have it so far. Otherwise she denies any complaints at this time there is no fever or chills no headache or dizziness no chest pain no nausea or vomiting no abdominal pain no diarrhea no blood in the stools no burning with urination no frequency or urgency and no hematuria. On 11/23/2020 patient was seen and examined on the medical floor she is somnolent arousable answer a few questions and returns to sleep she is maintained on oxygen via nasal cannula currently she is on 6 L/m she denies any chest pain denies any abdominal pain no nausea or vomiting she still has shortness of breath especially with any activity she is having some cough without any sputum production she is still having some stool incontinence. On 11/24/2020 patient was seen and examined on the medical floor she is still complaining of severe shortness of breath she is complaining of cough without sputum production there is no fever or chills no headache or dizziness no chest pain no palpitation no nausea or vomiting no abdominal pain no diarrhea no blood in the stools no burning with urination no frequency or urgency and no hematuria On 11/25/2020 patient is currently resting in bed currently working with physical therapy. Does state mild improvement. White blood cell improving to 9.6. Patient remains on IV Zosyn. Patient denies chest pain. Patient denies nausea vomiting or diarrhea. Patient denies any urinary burning or frequency Objective - Vital Signs Vital signs: Vital Signs Temp 98.5 F 11/25/20 07:11 Pulse 82 11/25/20 07:11 Resp 18 11/25/20 07:11 BP 104/66 11/25/20 07:11 Pulse Ox 90 L 11/25/20 07:11 Intake & Output 11/24/20 11/25/20 11/25/20 18:59 06:59 18:59 Output Total 1100 775 Balance -1100 -775 Weight 75.75 kg Output: Urine 1100 775 Other: Voiding Method Indwelling Catheter Indwelling Catheter Indwelling Catheter - Exam In general patient is alert and oriented 3 in no apparent distress HEENT head normocephalic and atraumatic Neck is supple no JVD no goiter no lymphadenopathy Chest exam reveals a scattered crackles bilaterally no wheezing Cardiac exam reveals regular heart sounds S1 and S2 with 2/6 systolic murmur in the left sternal border Abdomen is soft nontender no organomegaly with normal bowel sounds Extremity exam reveals 1+ edema Neurological examination reveals no gross focal deficit - Labs CBC & Chem 7: 11/25/20 05:58 11/25/20 05:58 Labs: Abnormal Lab Results - Last 24 Hours (Table) 11/24/20 11/24/20 11/25/20 Range/Units 07:37 07:37 05:58 WBC 11.01 H (4.50-10.00) X 10*3/uL RBC 3.32 L 3.36 L (4.10-5.20) X 10*6/uL Hgb 9.7 L 10.1 L (12.0-15.0) g/dL Hct 32.4 L 32.2 L (37.2-46.3) % MCV 97.6 H (80.0-97.0) fL MCHC 29.9 L (32.0-37.0) g/dL RDW 15.9 H 16.3 H (11.5-14.5) % Immature Gran # 0.14 H (0.00-0.04) X 10*3/uL Neutrophils # 7.78 H (1.80-7.70) X 10*3/uL Monocytes # 1.35 H (0.20-1.00) X 10*3/uL Eosinophils # 0.78 H (0.04-0.35) X 10*3/uL Creatinine 0.4 L (0.6-1.5) mg/dL BUN/Creatinine Ratio 22.50 H (12.00-20.00) Ratio Glucose (74-99) mg/dL Total Protein 5.0 L (6.2-8.2) g/dL Albumin 3.10 L (3.80-4.90) g/dL 11/25/20 Range/Units 05:58 WBC (4.50-10.00) X 10*3/uL RBC (4.10-5.20) X 10*6/uL Hgb (12.0-15.0) g/dL Hct (37.2-46.3) % MCV (80.0-97.0) fL MCHC (32.0-37.0) g/dL RDW (11.5-14.5) % Immature Gran # (0.00-0.04) X 10*3/uL Neutrophils # (1.80-7.70) X 10*3/uL Monocytes # (0.20-1.00) X 10*3/uL Eosinophils # (0.04-0.35) X 10*3/uL Creatinine 0.39 L (0.6-1.5) mg/dL BUN/Creatinine Ratio (12.00-20.00) Ratio Glucose 100 H (74-99) mg/dL Total Protein 5.2 L (6.2-8.2) g/dL Albumin 2.9 L (3.80-4.90) g/dL Assessment and Plan Plan: 1. Bilateral pneumonia patient was evaluated at [facility] and transferred to [facility] she was started on IV antibiotics. She currently maintained on IV Zosyn. White blood cell improving. Pulmonary and infectious disease following 2. Bilateral pleural effusion will recheck chest x-ray in a.m. 3. Acute on chronic hypoxic respiratory failure 4. Sepsis as evidenced by leukocytosis, tachycardia, patient received IV fluid boluses and currently she is maintained on IV antibiotics blood pressure is stable and will monitor closely . 5. Recent fall with back pain Will continue with current narcotic regimen and adjust as needed 6. Recent surgery for hemorrhoids, patient is still complaining of pain in the rectal area and stool incontinence, will check stools for C. diff 7. Urinary retention, patient was evaluated by urology on previous admission, she is still has a Panchal catheter, will consult urology again for evaluation. Per urology services trial void prior to discharge follow-up outpatient in 12 weeks 8. Evidence of urinary tract infection Will continue with current antibiotics awaiting urine and blood culture results 9. Underlying history of scleroderma 10. Underlying history of hypertension 11. Underlying history of hyperlipidemia 12. Underlying history of chronic pain syndrome maintained on narcotics 13. Underlying history of gastroesophageal reflux disease. 14. Underlying history of anxiety disorder. At this time patient is admitted to medical floor, she is started on IV antibiotics Home medications reviewed and reordered Recheck labs and chest x-ray in a.m. Check stools for C. diff, test was negative Pulmonary, GI services, infectious disease and urology services following Social work consult for possible rehab upon discharge PT OT consulted
--- NOTE | 2020-11-25 13:31 | P.PN ---
Subjective Progress Note Date: 11/25/20 HISTORY OF PRESENT ILLNESS This is a 75-year-old female patient treated for pneumonia and UTI. CAT scan s howed increased deep interstitial infiltrate question of infection. Patient is currently covered with Zosyn. She continues to have cough with sputum production and sputum culture is in progress. She denies having any wheezing. She denies chest pain. No abdominal pain, nausea, vomiting or diarrhea. She does complain of continued shortness of breath at rest and worse with activity. PHYSICAL EXAMINATION Gen: This is a 75-year-old female patient resting in bed. HEENT: Head is atraumatic, normocephalic. Pupils equal, round. Sclerae is anicteric. NECK: Supple. No JVD. No lymphadenopathy. LUNGS: Coarse breath sounds bilaterally. No wheezing. HEART: Regular rate and rhythm. No murmur. ABDOMEN: Soft. Bowel sounds are present. No masses. No tenderness. EXTREMITIES: No pedal edema. No calf tenderness. NEUROLOGICAL: Patient is awake, alert and oriented x3. ASSESSMENT Bilateral pneumonia, possible gram-negative pneumonia Acute hypoxic respiratory failure Possible Catheter associated Urinary tract infection secondary to chronic Panchal PLAN Continue Zosyn 3.375 g IV piggyback every 8 hours Follow sputum culture Urine culture is finalized with no growth at 18 hours, obtain following antibiotics Further recommendations as patient progresses. The above dictated assessment and findings were discussed with Dr. Wallace. The impression and plan of care have been directed as dictated. Antonieta Nguyen nurse practitioner acting as scribe for Dr. Wallace. Objective - Vital Signs Vital signs: Vital Signs Temp 98.5 F 11/25/20 07:11 Pulse 85 11/25/20 11:27 Resp 18 11/25/20 07:11 BP 104/66 11/25/20 07:11 Pulse Ox 90 L 11/25/20 07:11 Intake & Output 11/24/20 11/25/20 11/25/20 18:59 06:59 18:59 Output Total 1100 775 Balance -1100 -775 Weight 75.75 kg Output: Urine 1100 775 Other: Voiding Method Indwelling Catheter Indwelling Catheter Indwelling Catheter - Labs CBC & Chem 7: 11/25/20 05:58 11/25/20 05:58 Labs: Abnormal Lab Results - Last 24 Hours (Table) 11/25/20 11/25/20 Range/Units 05:58 05:58 RBC 3.36 L (3.80-5.40) m/uL Hgb 10.1 L (11.4-16.0) gm/dL Hct 32.2 L (34.0-46.0) % RDW 16.3 H (11.5-15.5) % Creatinine 0.39 L (0.52-1.04) mg/dL Glucose 100 H (74-99) mg/dL Total Protein 5.2 L (6.3-8.2) g/dL Albumin 2.9 L (3.5-5.0) g/dL
--- NOTE | 2020-11-25 13:52 | P.PN ---
Subjective Progress Note Date: 11/25/20 Principal diagnosis: Acute hypoxemic respiratory failure secondary to bilateral pneumonia This is a 75-year-old female that is transferred down from [facility]. She lives up in the [place] area. The patient was recently diagnosed with a urinary tract infection and pneumonia. She was also diagnosed with sepsis and placed on oxygen at 3 L. Typically she is not on oxygen therapy. The patient was transferred down to for further management and evaluation. Her complaints include primarily shortness of breath, and cough. She's not producing much or any phlegm. She denies any chest pain. She also denies any nausea, vomiting, or diarrhea. She denied any fever or chills. She did recently fall, and injured her back. Apparently there were no fractures noted. Currently, her chest x-ray showing diffuse bilateral infiltrates. Her primary care provider is Dr. Darcy Araujo. Chest x-ray showed bilateral infiltrates, right greater than left. Her COVID 19 testing was negative. Her white count was 8.1 down from 13.3, white count 10.3, hematocrit 34.1, and platelet count 314,000. Sodium was 139, potassium 5.1, chloride 107, CO2 24, anion gap 8, BUN 16, c reatinine 0.37. Her urine was yellow and cloudy with a specific gravity 1.037. Her leukocyte esterase test was moderately positive with 20 WBCs, and rare bacteria. Currently, she is on vancomycin and also Zosyn. Culture data including blood sampling, sputum, and urine are either pending or negative. Clinically, she was requiring 10 L high flow nasal cannula for saturations between 93-97%. She did not appear to have any significant distress. Progress note dated 11/22/2020. 75-year-old female that we saw yesterday in consultation. She was transferred down from [facility], with urinary tract infection and pneumonia. Currently, she is on 10 L high flow nasal O2. Today, she complains mostly of nasal congestion and stuffiness. We recommended some Flonase nasal spray for that. In addition, because of her diffuse bilateral infiltrates, we went ahead and ordered a CT angiogram. Her white count is 12.3, hemoglobin 9.5, hematocrit 34.4, and platelet count 313,000. Sodium is 144, potassium 4.3, chlorides 110, CO2 26, anion gap 8, BUN and creatinine of 20 and 0.5. Her urinalysis from yesterday shows a urine to be yellow and cloudy, with moderate positive leukocyte esterase, 20 WBCs, and rare bacteria. Coronavirus testing was negative although she did have COVID 19 in the past. Current temperature is 98.1, heart rate 80, respiratory rate 16, blood pressure 107/66, with a mean of 79, and saturations are 93% 10 L high flow nasal O2. Patient is seen today 11/23/2020 in follow-up on the regular medical floor. She is currently sitting up in a chair at the bedside. Awake and alert in no acute distress. Maintaining O2 saturations up to 100% on 15 L nonrebreather mask. She's afebrile. Tachycardic. White count 14.6. Hemoglobin 10.0. Sodium 141. Potassium 4.1. Creatinine 0.5. She remains on bronchodilators, insulin. Antibiotics in the form of Zosyn. The patient is seen today 11/24/2020 in follow-up on the regular medical floor. She is currently sitting up in bed. Breathing a bit easier today compared to yesterday. Still requiring 10 L high flow nasal cannula. Urine culture revealed no growth. White count 11.0. Hemoglobin 9.7. Sodium 139. Potassium 3.8. Creatinine 0.4. Remains on bronchodilators, prednisone. Antibiotics in the form of Zosyn. The patient is seen today 11/25/2020 in follow-up on the regular medical floor. She is currently resting comfortably in bed. Breathing easier today compared to yesterday. Currently on 8 L high flow nasal cannula. She's afebrile. Hemodynamically stable. White count 9.6. Hemoglobin 10.1. Sodium 138. Potassium 4.1. Creatinine 0.39. She remains on DuoNeb inhalations, prednisone. Lovenox for DVT prophylaxis. Antibiotics in the form of Zosyn. Urine culture revealed no growth. Objective - Vital Signs Vital signs: Vital Signs Temp 98.5 F 11/25/20 07:11 Pulse 85 11/25/20 11:27 Resp 18 11/25/20 07:11 BP 104/66 11/25/20 07:11 Pulse Ox 90 L 11/25/20 07:11 Intake & Output 11/24/20 11/25/20 11/25/20 18:59 06:59 18:59 Output Total 1100 775 Balance -1100 -775 Weight 75.75 kg Output: Urine 1100 775 Other: Voiding Method Indwelling Catheter Indwelling Catheter Indwelling Catheter - Exam GENERAL EXAM: Alert, 75-year-old female patient, on 8 L high flow nasal cannula. Comfortable in no apparent distress. HEAD: Normocephalic. EYES: Normal reaction of pupils, equal size. NOSE: Clear with pink turbinates. THROAT: No erythema or exudates. NECK: No masses, no JVD. CHEST: No chest wall deformity. LUNGS: Equal air entry with bilateral scattered rhonchi, diminished. CVS: S1 and S2 normal with no audible murmur, regular rhythm. ABDOMEN: No hepatosplenomegaly, normal bowel sounds, no guarding or rigidity. SPINE: No scoliosis or deformity SKIN: No rashes CENTRAL NERVOUS SYSTEM: No focal deficits, tone is normal in all 4 extremities. EXTREMITIES: There is no peripheral edema. No clubbing, no cyanosis. Peripheral pulses are intact. - Labs CBC & Chem 7: 11/25/20 05:58 11/25/20 05:58 Labs: Abnormal Lab Results - Last 24 Hours (Table) 11/25/20 11/25/20 Range/Units 05:58 05:58 RBC 3.36 L (3.80-5.40) m/uL Hgb 10.1 L (11.4-16.0) gm/dL Hct 32.2 L (34.0-46.0) % RDW 16.3 H (11.5-15.5) % Creatinine 0.39 L (0.52-1.04) mg/dL Glucose 100 H (74-99) mg/dL Total Protein 5.2 L (6.3-8.2) g/dL Albumin 2.9 L (3.5-5.0) g/dL Assessment and Plan Assessment: 1 Acute hypoxemic respiratory failure secondary to bilateral pneumonia, currently on 8 L high flow nasal cannula. 2 Urinary tract infection, rule out urosepsis. Chronic Panchal. 3 Prior history of COVID 19 pneumonitis. 4 Severe hypoxemic respiratory failure, rule out early acute respiratory distress syndrome (ARDS). 5 History of osteoarthritis. 6 History of pneumonia. 7 History of Raynaud's syndrome. 8 History of progressive systemic sclerosis (PSS). 9 History of varicose veins. 10 History of degenerative disc disease. 11 Lifelong nonsmoker. Plan: The patient was seen and evaluated by Dr. Arredondo We will continue the current treatment plan for now Titrate down the FiO2 as tolerated Plan is for discharge to [facility] on the [address] We will see as needed I, the cosigning physician, performed a history & physical examination of the patient. Lungs sounds scattered rhonchi, diminished. Maintaining good O2 saturations in the 90s on 8 L high flow nasal cannula. I discussed the assessment and plan of care with my nurse practitioner, Marti Espinoza. I attest to the above note as dictated by her.
[2020-11-25] MEDS: MORPHINE SULFATE ER 15 MG TABLET PO SCH (20:00)
[2020-11-25] MEDS: TAMSULOSIN 0.4 MG CAP.ER.24H PO SCH (21:10)
[2020-11-25] MEDS: ASCORBIC ACID 500 MG TAB PO SCH (21:10)
[2020-11-25] MEDS: ATORVASTATIN 20 MG TAB PO SCH (21:10)
[2020-11-25] MEDS: MELATONIN 5 MG TABLET PO SCH (21:10)
[2020-11-26] MEDS: GABAPENTIN 100 MG CAP PO SCH ×3 (05:46→21:02)
[2020-11-26] MEDS: IPRATROPIUM-ALBUTEROL 3 ML NEB INHALATION SCH ×4 (07:30→21:47)
[2020-11-26 08:52] LABS: Basophils # (A) 0.06 X 10*3/uL (0.00-0.10); Basophils % (A) 0.6 %; Eosinophils # (A) 0.83 X 10*3/uL (0.04-0.35); Eosinophils % (A) 8.5 %; HCT 31.6 % (37.2-46.3); HGB 9.3 g/dL (12.0-15.0); Lymphocytes # (A) 1.85 X 10*3/uL (0.90-5.00); MCH 28.9 pg (27.0-32.0); MCHC 29.4 g/dL (32.0-37.0); MCV 98.1 fL (80.0-97.0); Mean Platelet Volume 9.7 fL (9.5-12.2); Monocytes # (A) 0.93 X 10*3/uL (0.20-1.00); Monocytes % (A) 9.6 %; Neutrophils # (A) 5.83 X 10*3/uL (1.80-7.70); Platelet Count 395 X 10*3/uL (140-440); RBC 3.22 X 10*6/uL (4.10-5.20); RDW 15.5 % (11.5-14.5); WBC 9.72 X 10*3/uL (4.50-10.00)
[2020-11-26 09:18] LABS: Albumin 3.3 g/dL (3.80-4.90); Albumin/Globulin Ratio 1.5 (1.60-3.17); Anion Gap 7.7 mmol/L (4.00-12.00); Calcium 9.5 mg/dL (8.7-10.3); Carbon Dioxide 26.3 mmol/L (21.6-31.8); Globulin 2.2 g/dL (1.6-3.3); Potassium 4.4 mmol/L (3.5-5.5); Total Bilirubin 0.4 mg/dL (0.3-1.2); Total Protein 5.5 g/dL (6.2-8.2)
[2020-11-26] MEDS: METOPROLOL TARTRATE 12.5 MG TAB PO SCH ×2 (10:15→21:04)
[2020-11-26] MEDS: MELOXICAM 7.5 MG TAB PO SCH (10:15)
[2020-11-26] MEDS: CHOLECALCIFEROL 25 MCG (1000 IU) TABLET PO SCH (10:15)
[2020-11-26] MEDS: ASPIRIN 81 MG PO SCH (10:15)
[2020-11-26] MEDS: MECLIZINE 12.5 MG TAB PO SCH ×3 (10:15→21:05)
[2020-11-26] MEDS: NIFEdipine XL 30 MG TAB.ER.24 PO SCH ×2 (10:15→21:00)
[2020-11-26] MEDS: PIPERACILLIN-TAZOBACTAM 3.375 GM in SODIUM CHLORIDE 0.9% 100 ML IVPB SCH ×2 (10:16→15:29)
[2020-11-26] MEDS: FAMOTIDINE 20 MG TAB PO SCH ×2 (10:16→21:13)
[2020-11-26] MEDS: ENOXAPARIN 40 MG/0.4 ML SYRINGE SQ SCH (10:16)
[2020-11-26] MEDS: predniSONE 10 MG TAB PO SCH (10:16)
--- NOTE | 2020-11-26 12:54 | P.PN ---
Subjective Progress Note Date: 11/26/20 Claribel Ruiz, is a 75-year-old female, who presented to [facility] emergency room with back pain and shortness of breath, she states that she fell about 1 week ago, patient was evaluated at [facility], computed tomography scan of the thoracic spine and the lumbar spine was done and revealed evidence of old T12 vertebral fracture without any evidence for new vertebral fractures, computed tomography scan also revealed extensive bilateral pulmonary infiltrates with bilateral pleural effusions, patient also had evidence of urinary tract infection, she had leukocytosis suggestive of sepsis, she was transferred to [facility] emergency room and then admitted to medical floor for further evaluation and treatment. Patient had several recent admissions to [facility], her last discharge was on 10/22/2020, over the last few months patient had evidence of Covid 19 pneumonia, she also had rectal pain and rectal bleeding and had surgery for hemorrhoids with Dr. Alatorre, she has underlying history of scleroderma, Raynaud's disease, hypertension, history of hyperlipidemia, history of osteoarthritis, history of osteoporosis, history of gastroesophageal reflux disease, history of chronic pain syndrome maintained on narcotics, history of pressure ulcer of the left buttock stage II, history of urinary retention requiring Panchal catheter placement patient was evaluated by urology on previous admission. Patient was evaluated at [facility] emergency room, her vital examination on presentation revealed a temperature of 97.8 pulse 108 respiration 18 blood pressure 102/67 pulse ox 94% on 3 L nasal cannula, her white blood count was 13.3 hemoglobin 10.4 platelet count 311 BUN 19 creatinine 0.44 Li virus PCR was negative. On 11/21/2020 patient was seen and examined on the medical floor she is alert and oriented 3 in no apparent distress she is complaining of stools incontinence patient stated that she is constantly having liquid stool coming out of the rectum she is also complaining of chest tightness and shortness of breath and occasional cough otherwise she denies any complaints. At this point will check stools for C. diff, consultation for gastroenterology was initiated. On 11/22/2020 patient was seen and examined on the medical floor he no apparent distress, she is complaining of shortness of breath she is maintained on oxygen via nasal cannula. Currently at 8 L per minute she has occasional cough she is maintained on IV antibiotic she was evaluated by pulmonary 80 scan angiogram of the chest was ordered however patient refused to have it so far. Otherwise she denies any complaints at this time there is no fever or chills no headache or dizziness no chest pain no nausea or vomiting no abdominal pain no diarrhea no blood in the stools no burning with urination no frequency or urgency and no hematuria. On 11/23/2020 patient was seen and examined on the medical floor she is somnolent arousable answer a few questions and returns to sleep she is maintained on oxygen via nasal cannula currently she is on 6 L/m she denies any chest pain denies any abdominal pain no nausea or vomiting she still has shortness of breath especially with any activity she is having some cough without any sputum production she is still having some stool incontinence. On 11/24/2020 patient was seen and examined on the medical floor she is still complaining of severe shortness of breath she is complaining of cough without sputum production there is no fever or chills no headache or dizziness no chest pain no palpitation no nausea or vomiting no abdominal pain no diarrhea no blood in the stools no burning with urination no frequency or urgency and no hematuria On 11/25/2020 patient is currently resting in bed currently working with physical therapy. Does state mild improvement. White blood cell improving to 9.6. Patient remains on IV Zosyn. Patient denies chest pain. Patient denies nausea vomiting or diarrhea. Patient denies any urinary burning or frequency. On 11/26/2020 patient was seen and examined on the medical floor she is alert and oriented 3 in no apparent distress she is still complaining of shortness of breath with any activity she is still complaining of leakage in the stools otherwise she denies any complaints at this time there is no fever or chills no headache or dizziness no chest pain no nausea or vomiting no abdominal pain no blood in the stools no burning with urination no frequency or urgency and no hematuria Objective - Vital Signs Vital signs: Vital Signs Temp 97.9 F 11/26/20 08:00 Pulse 83 11/26/20 11:07 Resp 20 11/26/20 08:00 BP 121/68 11/26/20 08:00 Pulse Ox 94 L 11/26/20 08:00 Intake & Output 11/25/20 11/26/20 11/26/20 18:59 06:59 18:59 Output Total 650 Balance -650 Output: Urine 650 Other: Voiding Method Indwelling Catheter Indwelling Catheter Indwelling Catheter # Bowel Movements 1 - Exam In general patient is alert and oriented 3 in no apparent distress HEENT head normocephalic and atraumatic Neck is supple no JVD no goiter no lymphadenopathy Chest exam reveals a scattered crackles bilaterally no wheezing Cardiac exam reveals regular heart sounds S1 and S2 with 2/6 systolic murmur in the left sternal border Abdomen is soft nontender no organomegaly with normal bowel sounds Extremity exam reveals 1+ edema Neurological examination reveals no gross focal deficit - Labs CBC & Chem 7: 11/26/20 05:39 11/26/20 05:39 Labs: Abnormal Lab Results - Last 24 Hours (Table) 11/26/20 11/26/20 Range/Units 05:39 05:39 RBC 3.22 L (4.10-5.20) X 10*6/uL Hgb 9.3 L (12.0-15.0) g/dL Hct 31.6 L (37.2-46.3) % MCV 98.1 H (80.0-97.0) fL MCHC 29.4 L (32.0-37.0) g/dL RDW 15.5 H (11.5-14.5) % Immature Gran # 0.22 H (0.00-0.04) X 10*3/uL Eosinophils # 0.83 H (0.04-0.35) X 10*3/uL Creatinine 0.5 L (0.6-1.5) mg/dL BUN/Creatinine Ratio 22.00 H (12.00-20.00) Ratio Total Protein 5.5 L (6.2-8.2) g/dL Albumin 3.30 L (3.80-4.90) g/dL Albumin/Globulin Ratio 1.50 L (1.60-3.17) g/dL Microbiology - Last 24 Hours (Table) 11/25/20 08:54 Gram Stain - Preliminary Sputum Sputum Culture - Preliminary Assessment and Plan Plan: 1. Bilateral pneumonia patient was evaluated at [facility] and transferred to [facility] she was started on IV antibiotics. She currently maintained on IV Zosyn. White blood cell improving. Pulmonary and infectious disease following 2. Bilateral pleural effusion will recheck chest x-ray in a.m. 3. Acute on chronic hypoxic respiratory failure 4. Sepsis as evidenced by leukocytosis, tachycardia, patient received IV fluid boluses and currently she is maintained on IV antibiotics blood pressure is stable and will monitor closely . 5. Recent fall with back pain Will continue with current narcotic regimen and adjust as needed 6. Recent surgery for hemorrhoids, patient is still complaining of pain in the rectal area and stool incontinence, will check stools for C. diff 7. Urinary retention, patient was evaluated by urology on previous admission, she is still has a Panchal catheter, will consult urology again for evaluation. Per urology services trial void prior to discharge follow-up outpatient in 12 weeks 8. Evidence of urinary tract infection Will continue with current antibiotics awaiting urine and blood culture results 9. Underlying history of scleroderma 10. Underlying history of hypertension 11. Underlying history of hyperlipidemia 12. Underlying history of chronic pain syndrome maintained on narcotics 13. Underlying history of gastroesophageal reflux disease. 14. Underlying history of anxiety disorder. At this time patient is admitted to medical floor, she is started on IV antibiotics Home medications reviewed and reordered Recheck labs and chest x-ray in a.m. Check stools for C. diff, test was negative Pulmonary, GI services, infectious disease and urology services following Social work consult for possible rehab upon discharge PT OT consulted
--- NOTE | 2020-11-26 13:19 | PN ---
PROGRESS NOTE DATE OF SERVICE: 11/26/2020 REASON FOR FOLLOWUP: Pneumonia and a question of UTI. INTERVAL HISTORY: Patient is currently afebrile. The patient is breathing comfortably. The patient is complaining of diarrhea and seepage of stool. Patient's breathing is slightly better. Did have a cough but no sputum. No abdominal pain. No urinary symptoms. PHYSICAL EXAMINATION: VITAL SIGNS: Blood pressure 121/60 with a pulse of 81, temperature is 97.9, she is 94% on 2 L high-flow oxygen. GENERAL DESCRIPTION: An elderly female up in the bed in no distress. RESPIRATORY SYSTEM: Unlabored breathing. Coarse breath sounds bilaterally. No wheeze. HEART: S1, S2. Regular rate and rhythm. ABDOMEN: Soft, no tenderness. LABS: Hemoglobin 7.3, white count of 9.72, BUN of 11, creatinine 0.5. Stool for C difficile was negative. Culture so far negative. Urine and sputum so far pending. DIAGNOSTIC IMPRESSION AND PLAN: Patient admitted to the hospital with possible sepsis. Did have elevated white count and concern for possible pneumonia. The patient's white count has normalized. Blood culture so far negative. Sputum is pending. Continue Zosyn. She has been advised to increase her probiotic and yogurt intake and continue supportive care. MMODL / IJN: [id number] /
[2020-11-26] MEDS: ACETAMINOPHEN TAB 325 MG TAB PO PRN (13:30)
[2020-11-26] MEDS: ASCORBIC ACID 500 MG TAB PO SCH (20:48)
[2020-11-26] MEDS: MORPHINE SULFATE ER 15 MG TABLET PO SCH (21:00)
[2020-11-26] MEDS: MELATONIN 5 MG TABLET PO SCH (21:04)
[2020-11-26] MEDS: TAMSULOSIN 0.4 MG CAP.ER.24H PO SCH (21:09)
[2020-11-26] MEDS: ATORVASTATIN 20 MG TAB PO SCH (21:13)
[2020-11-27] MEDS: PIPERACILLIN-TAZOBACTAM 3.375 GM in SODIUM CHLORIDE 0.9% 100 ML IVPB SCH ×3 (00:16→17:55)
[2020-11-27] MEDS: GABAPENTIN 100 MG CAP PO SCH ×3 (05:52→20:02)
[2020-11-27] MEDS: IPRATROPIUM-ALBUTEROL 3 ML NEB INHALATION SCH ×4 (07:26→21:17)
[2020-11-27] MEDS: METOPROLOL TARTRATE 12.5 MG TAB PO SCH ×2 (09:29→20:08)
[2020-11-27 09:46] LABS: Basophils # (A) 0.08 X 10*3/uL (0.00-0.10); Basophils % (A) 0.8 %; Eosinophils # (A) 0.64 X 10*3/uL (0.04-0.35); Eosinophils % (A) 6.5 %; HCT 31.8 % (37.2-46.3); HGB 9.4 g/dL (12.0-15.0); Lymphocytes # (A) 1.89 X 10*3/uL (0.90-5.00); Lymphocytes % (A) 19.3 %; MCHC 29.6 g/dL (32.0-37.0); MCV 98.1 fL (80.0-97.0); Mean Platelet Volume 9.6 fL (9.5-12.2); Monocytes # (A) 0.95 X 10*3/uL (0.20-1.00); Monocytes % (A) 9.7 %; Neutrophils % (A) 61.4 %; Platelet Count 402 X 10*3/uL (140-440); RBC 3.24 X 10*6/uL (4.10-5.20); RDW 15.8 % (11.5-14.5); WBC 9.79 X 10*3/uL (4.50-10.00)
[2020-11-27 09:56] LABS: Albumin 3.2 g/dL (3.80-4.90); Albumin/Globulin Ratio 1.33 (1.60-3.17); Anion Gap 7.5 mmol/L (4.00-12.00); Carbon Dioxide 26.5 mmol/L (21.6-31.8); Globulin 2.4 g/dL (1.6-3.3); Potassium 4.4 mmol/L (3.5-5.5); Total Bilirubin 0.3 mg/dL (0.3-1.2); Total Protein 5.6 g/dL (6.2-8.2)
[2020-11-27] MEDS: predniSONE 10 MG TAB PO SCH (10:27)
[2020-11-27] MEDS: FAMOTIDINE 20 MG TAB PO SCH ×2 (10:27→20:10)
[2020-11-27] MEDS: ASPIRIN 81 MG PO SCH (10:27)
[2020-11-27] MEDS: CHOLECALCIFEROL 25 MCG (1000 IU) TABLET PO SCH (10:27)
[2020-11-27] MEDS: ENOXAPARIN 40 MG/0.4 ML SYRINGE SQ SCH (10:27)
[2020-11-27] MEDS: MELOXICAM 7.5 MG TAB PO SCH (10:27)
[2020-11-27] MEDS: MECLIZINE 12.5 MG TAB PO SCH ×3 (10:28→20:08)
[2020-11-27] MEDS: NIFEdipine XL 30 MG TAB.ER.24 PO SCH ×2 (10:28→20:05)
--- NOTE | 2020-11-27 12:30 | P.PN ---
Subjective Progress Note Date: 11/27/20 Claribel Ruiz, is a 75-year-old female, who presented to [facility] emergency room with back pain and shortness of breath, she states that she fell about 1 week ago, patient was evaluated at [facility], computed tomography scan of the thoracic spine and the lumbar spine was done and revealed evidence of old T12 vertebral fracture without any evidence for new vertebral fractures, computed tomography scan also revealed extensive bilateral pulmonary infiltrates with bilateral pleural effusions, patient also had evidence of urinary tract infection, she had leukocytosis suggestive of sepsis, she was transferred to [facility] emergency room and then admitted to medical floor for further evaluation and treatment. Patient had several recent admissions to [facility], her last discharge was on 10/22/2020, over the last few months patient had evidence of Covid 19 pneumonia, she also had rectal pain and rectal bleeding and had surgery for hemorrhoids with Dr. Alatorre, she has underlying history of scleroderma, Raynaud's disease, hypertension, history of hyperlipidemia, history of osteoarthritis, history of osteoporosis, history of gastroesophageal reflux disease, history of chronic pain syndrome maintained on narcotics, history of pressure ulcer of the left buttock stage II, history of urinary retention requiring Panchal catheter placement patient was evaluated by urology on previous admission. Patient was evaluated at [facility] emergency room, her vital examination on presentation revealed a temperature of 97.8 pulse 108 respiration 18 blood pressure 102/67 pulse ox 94% on 3 L nasal cannula, her white blood count was 13.3 hemoglobin 10.4 platelet count 311 BUN 19 creatinine 0.44 Li virus PCR was negative. On 11/21/2020 patient was seen and examined on the medical floor she is alert and oriented 3 in no apparent distress she is complaining of stools incontinence patient stated that she is constantly having liquid stool coming out of the rectum she is also complaining of chest tightness and shortness of breath and occasional cough otherwise she denies any complaints. At this point will check stools for C. diff, consultation for gastroenterology was initiated. On 11/22/2020 patient was seen and examined on the medical floor he no apparent distress, she is complaining of shortness of breath she is maintained on oxygen via nasal cannula. Currently at 8 L per minute she has occasional cough she is maintained on IV antibiotic she was evaluated by pulmonary 80 scan angiogram of the chest was ordered however patient refused to have it so far. Otherwise she denies any complaints at this time there is no fever or chills no headache or dizziness no chest pain no nausea or vomiting no abdominal pain no diarrhea no blood in the stools no burning with urination no frequency or urgency and no hematuria. On 11/23/2020 patient was seen and examined on the medical floor she is somnolent arousable answer a few questions and returns to sleep she is maintained on oxygen via nasal cannula currently she is on 6 L/m she denies any chest pain denies any abdominal pain no nausea or vomiting she still has shortness of breath especially with any activity she is having some cough without any sputum production she is still having some stool incontinence. On 11/24/2020 patient was seen and examined on the medical floor she is still complaining of severe shortness of breath she is complaining of cough without sputum production there is no fever or chills no headache or dizziness no chest pain no palpitation no nausea or vomiting no abdominal pain no diarrhea no blood in the stools no burning with urination no frequency or urgency and no hematuria On 11/25/2020 patient is currently resting in bed currently working with physical therapy. Does state mild improvement. White blood cell improving to 9.6. Patient remains on IV Zosyn. Patient denies chest pain. Patient denies nausea vomiting or diarrhea. Patient denies any urinary burning or frequency. On 11/26/2020 patient was seen and examined on the medical floor she is alert and oriented 3 in no apparent distress she is still complaining of shortness of breath with any activity she is still complaining of leakage in the stools otherwise she denies any complaints at this time there is no fever or chills no headache or dizziness no chest pain no nausea or vomiting no abdominal pain no blood in the stools no burning with urination no frequency or urgency and no hematuria On 11/27/2020 patient is alert and oriented 3. Patient requesting Panchal catheter to be attempted to be removed. Voiding trial okay to be initiated per nursing staff. Patient was evaluated by urology services. Patient is having some shortness of breath today patient is on high flow 8 L improved. Patient denies chest pain. Patient denies any nausea or vomiting. Patient denies any urinary burning or frequency Objective - Vital Signs Vital signs: Vital Signs Temp 97.8 F 11/27/20 08:00 Pulse 86 11/27/20 12:18 Resp 19 11/27/20 08:00 BP 123/67 11/27/20 08:00 Pulse Ox 93 L 11/27/20 08:00 Intake & Output 11/26/20 11/27/20 11/27/20 18:59 06:59 18:59 Output Total 300 600 Balance -300 -600 Output: Urine 300 600 Other: Voiding Method Indwelling Catheter Indwelling Catheter # Bowel Movements 1 - Exam In general patient is alert and oriented 3 in no apparent distress HEENT head normocephalic and atraumatic Neck is supple no JVD no goiter no lymphadenopathy Chest exam reveals a scattered crackles bilaterally no wheezing Cardiac exam reveals regular heart sounds S1 and S2 with 2/6 systolic murmur in the left sternal border Abdomen is soft nontender no organomegaly with normal bowel sounds Extremity exam reveals 1+ edema Neurological examination reveals no gross focal deficit - Labs CBC & Chem 7: 11/27/20 05:48 11/27/20 05:48 Labs: Abnormal Lab Results - Last 24 Hours (Table) 11/27/20 11/27/20 Range/Units 05:48 05:48 RBC 3.24 L (4.10-5.20) X 10*6/uL Hgb 9.4 L (12.0-15.0) g/dL Hct 31.8 L (37.2-46.3) % MCV 98.1 H (80.0-97.0) fL MCHC 29.6 L (32.0-37.0) g/dL RDW 15.8 H (11.5-14.5) % Immature Gran # 0.23 H (0.00-0.04) X 10*3/uL Eosinophils # 0.64 H (0.04-0.35) X 10*3/uL Creatinine 0.5 L (0.6-1.5) mg/dL BUN/Creatinine Ratio 22.00 H (12.00-20.00) Ratio Total Protein 5.6 L (6.2-8.2) g/dL Albumin 3.20 L (3.80-4.90) g/dL Albumin/Globulin Ratio 1.33 L (1.60-3.17) g/dL Microbiology - Last 24 Hours (Table) 11/25/20 08:54 Gram Stain - Preliminary Sputum Sputum Culture - Preliminary Presumptive Staph aureus Lorrie albicans Assessment and Plan Plan: 1. Bilateral pneumonia patient was evaluated at [facility] and transferred to [facility] she was started on IV antibiotics. She currently maintained on IV Zosyn. White blood cell improving. Pulmonary and infectious disease following 2. Bilateral pleural effusion will recheck chest x-ray in a.m. 3. Acute on chronic hypoxic respiratory failure 4. Sepsis as evidenced by leukocytosis, tachycardia, patient received IV fluid boluses and currently she is maintained on IV antibiotics blood pressure is stable and will monitor closely . 5. Recent fall with back pain Will continue with current narcotic regimen and adjust as needed 6. Recent surgery for hemorrhoids, patient is still complaining of pain in the rectal area and stool incontinence, will check stools for C. diff 7. Urinary retention, patient was evaluated by urology on previous admission, she is still has a Panchal catheter, will consult urology again for evaluation. Per urology services trial void prior to discharge follow-up outpatient in 12 weeks 8. Evidence of urinary tract infection Will continue with current antibiotics awaiting urine and blood culture results 9. Underlying history of scleroderma 10. Underlying history of hypertension 11. Underlying history of hyperlipidemia 12. Underlying history of chronic pain syndrome maintained on narcotics 13. Underlying history of gastroesophageal reflux disease. 14. Underlying history of anxiety disorder. At this time patient is admitted to medical floor, she is started on IV antibiotics Home medications reviewed and reordered Check stools for C. diff, test was negative Pulmonary, GI services, infectious disease and urology services following Social work consult for possible rehab upon discharge PT OT consulted
--- NOTE | 2020-11-27 13:02 | XR ---
EXAMINATION TYPE: XR chest 1V portable DATE OF EXAM: 11/27/2020 CLINICAL HISTORY: Difficulty breathing and wheezing progress study. TECHNIQUE: Single AP portable upright view of the chest is obtained. COMPARISON: Chest x-ray from 6 days earlier. CTA chest 5 days ago. Older studies. FINDINGS: Persistent chronic parenchymal changes with increased opacities bilaterally. Cardiac silho uette size is stable and mildly enlarged. Osseous structures remain demineralized. IMPRESSION: Persistent bilateral areas of acute infiltrate and/or edema on background chronic parench ymal changes and mild cardiomegaly. Possible ARDS. No significant change from most recent studies
[2020-11-27] MEDS: HYDROcodone/APAP 10-325MG 1 EACH TAB PO PRN ×2 (13:05→21:08)
[2020-11-27] MEDS: MORPHINE SULFATE ER 15 MG TABLET PO SCH (20:04)
[2020-11-27] MEDS: ATORVASTATIN 20 MG TAB PO SCH (20:08)
[2020-11-27] MEDS: TAMSULOSIN 0.4 MG CAP.ER.24H PO SCH (20:08)
[2020-11-27] MEDS: MELATONIN 5 MG TABLET PO SCH (20:09)
[2020-11-27] MEDS: ASCORBIC ACID 500 MG TAB PO SCH (20:14)
[2020-11-27] MEDS: guaiFENesin 600 MG TABLET.ER PO SCH (20:14)
[2020-11-28] MEDS: PIPERACILLIN-TAZOBACTAM 3.375 GM in SODIUM CHLORIDE 0.9% 100 ML IVPB SCH ×2 (00:48→09:02)
[2020-11-28] MEDS: HYDROcodone/APAP 10-325MG 1 EACH TAB PO PRN ×2 (03:45→13:31)
[2020-11-28] MEDS: GABAPENTIN 100 MG CAP PO SCH ×3 (05:23→20:28)
--- NOTE | 2020-11-28 06:39 | PN ---
PROGRESS NOTE DATE OF SERVICE: 11/27/2020 REASON FOR FOLLOWUP: Pneumonia. INTERVAL HISTORY: The patient is currently afebrile. Patient is breathing comfortably. Still complaining of chest pain. Occasional cough but no sputum production. No nausea, vomiting. No abdominal pain. Did have some diarrhea. PHYSICAL EXAMINATION: Blood pressure 114/60 with a pulse of 70, temperature 97.4. She is 96% on 6 L nasal cannula. General description is an elderly female lying in bed in no distress. Respiratory system: Unlabored breathing with decreased intensity of breath sounds, no wheeze. Heart S1, S2. Regular rate and rhythm. Abdomen is soft, no tenderness. LABS: Hemoglobin is 9.4, white count of 9.79, BUN of 11, creatinine 0.5. DIAGNOSTIC IMPRESSION AND PLAN: Patient admitted to the hospital shortness of breath and cough with concern for pneumonia. Patient clinically responding to Zosyn. Continued it while inpatient and transition to oral Avelox on discharge. Continue supportive care. MMODL / IJN: [id number] /
[2020-11-28] MEDS: IPRATROPIUM-ALBUTEROL 3 ML NEB INHALATION SCH ×4 (07:43→19:46)
[2020-11-28] MEDS: MELOXICAM 7.5 MG TAB PO SCH (09:01)
[2020-11-28] MEDS: FAMOTIDINE 20 MG TAB PO SCH ×2 (09:01→20:20)
[2020-11-28] MEDS: ASPIRIN 81 MG PO SCH (09:01)
[2020-11-28] MEDS: METOPROLOL TARTRATE 12.5 MG TAB PO SCH ×2 (09:01→20:09)
[2020-11-28] MEDS: ENOXAPARIN 40 MG/0.4 ML SYRINGE SQ SCH (09:01)
[2020-11-28] MEDS: NIFEdipine XL 30 MG TAB.ER.24 PO SCH ×2 (09:02→20:13)
[2020-11-28] MEDS: MECLIZINE 12.5 MG TAB PO SCH ×3 (09:02→20:20)
[2020-11-28] MEDS: CHOLECALCIFEROL 25 MCG (1000 IU) TABLET PO SCH (09:02)
[2020-11-28] MEDS: predniSONE 10 MG TAB PO SCH (09:02)
[2020-11-28] MEDS: guaiFENesin 600 MG TABLET.ER PO SCH ×2 (09:02→20:29)
[2020-11-28 11:05] LABS: Basophils # (A) 0.09 X 10*3/uL (0.00-0.10); Eosinophils # (A) 0.59 X 10*3/uL (0.04-0.35); Eosinophils % (A) 6.3 %; HCT 32.2 % (37.2-46.3); HGB 9.1 g/dL (12.0-15.0); Lymphocytes # (A) 2.07 X 10*3/uL (0.90-5.00); Lymphocytes % (A) 22.1 %; MCH 28.2 pg (27.0-32.0); MCHC 28.3 g/dL (32.0-37.0); MCV 99.7 fL (80.0-97.0); Mean Platelet Volume 9.5 fL (9.5-12.2); Monocytes # (A) 0.82 X 10*3/uL (0.20-1.00); Monocytes % (A) 8.8 %; Neutrophils # (A) 5.56 X 10*3/uL (1.80-7.70); Neutrophils % (A) 59.4 %; Platelet Count 393 X 10*3/uL (140-440); RBC 3.23 X 10*6/uL (4.10-5.20); RDW 15.6 % (11.5-14.5); WBC 9.35 X 10*3/uL (4.50-10.00)
[2020-11-28 11:27] LABS: Albumin 3.2 g/dL (3.80-4.90); Albumin/Globulin Ratio 1.45 (1.60-3.17); Anion Gap 5.1 mmol/L (4.00-12.00); Calcium 8.9 mg/dL (8.7-10.3); Carbon Dioxide 28.9 mmol/L (21.6-31.8); Globulin 2.2 g/dL (1.6-3.3); Potassium 4.3 mmol/L (3.5-5.5); Total Bilirubin 0.3 mg/dL (0.3-1.2); Total Protein 5.4 g/dL (6.2-8.2)
[2020-11-28] MEDS ORDERED: VANCOMYCIN IV PER PHARMACY 1 EACH MISC MISCELLANE PRN (11:38)
--- NOTE | 2020-11-28 13:18 | P.PN ---
Subjective Progress Note Date: 11/28/20 On today's evaluation of 11/28/2020 the patient remains on 6 L of oxygen by nasal cannula. Chest x-ray was done yesterday and showed persistent bilateral areas of acute infiltration/chronic infiltration and she does have baseline cardiomegaly and baseline ILD related to her systemic sclerosis. Noted the patient's older CAT scan of the chest also showed chronic ILD consistent with interstitial lung disease from connective tissue disease disorder. For now, the sputum is also positive for MRSA and the patient is currently on vancomycin. She is weak. She is quite debilitated. Her most recent CAT scan of the chest that was done on 11/22/2020. Indicated the possibility of progression of the diffuse bilateral groundglass pulmonary opacities. There was no evidence of any pulmonary embolism. There was small to moderate-sized Lymph Nodes along with Some Mild Cardiomegaly and T12 Compression Fracture of the Spine with a 30% Height Loss. In Terms of Her Scleroderma and ILD, the Patient Remains on CellCept and She Has Also Completed a Prednisone Burst Taper. CellCept Is Being Given a Dose of 500 Mg by Mouth 3 Times A Day. Objective - Vital Signs Vital signs: Vital Signs Temp 98.0 F 11/28/20 08:00 Pulse 72 11/28/20 11:00 Resp 18 11/28/20 11:00 BP 112/67 11/28/20 08:00 Pulse Ox 98 11/28/20 08:00 Intake & Output 11/27/20 11/28/20 11/28/20 18:59 06:59 18:59 Output Total 400 600 Balance -400 -600 Output: Urine 400 600 Other: Voiding Method Indwelling Catheter Indwelling Catheter Indwelling Catheter # Bowel Movements 1 - Exam GENERAL EXAM: Alert, 75-year-old female patient, on 6 L high flow nasal cannula. Comfortable in no apparent distress. HEAD: Normocephalic. EYES: Normal reaction of pupils, equal size. NOSE: Clear with pink turbinates. THROAT: No erythema or exudates. NECK: No masses, no JVD. CHEST: No chest wall deformity. LUNGS: Equal air entry with bilateral scattered rhonchi, diminished. CVS: S1 and S2 normal with no audible murmur, regular rhythm. ABDOMEN: No hepatosplenomegaly, normal bowel sounds, no guarding or rigidity. SPINE: No scoliosis or deformity SKIN: No rashes CENTRAL NERVOUS SYSTEM: No focal deficits, tone is normal in all 4 extremities. EXTREMITIES: There is no peripheral edema. No clubbing, no cyanosis. Peripheral pulses are intact. - Labs CBC & Chem 7: 11/28/20 06:54 11/28/20 06:54 Labs: Abnormal Lab Results - Last 24 Hours (Table) 11/28/20 11/28/20 Range/Units 06:54 06:54 RBC 3.23 L (4.10-5.20) X 10*6/uL Hgb 9.1 L (12.0-15.0) g/dL Hct 32.2 L (37.2-46.3) % MCV 99.7 H (80.0-97.0) fL MCHC 28.3 L (32.0-37.0) g/dL RDW 15.6 H (11.5-14.5) % Immature Gran # 0.22 H (0.00-0.04) X 10*3/uL Eosinophils # 0.59 H (0.04-0.35) X 10*3/uL Creatinine 0.5 L (0.6-1.5) mg/dL AST 11 L (13-35) U/L Total Protein 5.4 L (6.2-8.2) g/dL Albumin 3.20 L (3.80-4.90) g/dL Albumin/Globulin Ratio 1.45 L (1.60-3.17) g/dL Microbiology - Last 24 Hours (Table) 11/25/20 08:54 Gram Stain - Final Sputum Sputum Culture - Final Methicillin resist S. aureus Lorrie albicans Assessment and Plan Plan: 1 Acute hypoxemic respiratory failure secondary to bilateral pneumonia, currently on 6 L high flow nasal cannula. Patient has chronic ILD evident on previous CAT scan of the chest in 2014 2015. Subsequently, she got Covid 19 in July 2020 diffuse bilateral groundglass pulmonary infiltrates somewhat patchy and peripheral more so in the lower lobes. Follow-up CAT scan of the chest showed chronic fibrotic changes in both fibrotic and interstitial changes bilaterally from September 2020 and October 2020. 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 A superinfection with bacterial pneumonia is likely as the patient positive for MRSA and the patient is still on vancomycin. On 6 L about 2 by nasal cannula. Vancomycin was administered back in 11/28/2020. Her pro-calcitonin level was mildly elevated at 0.14 on 11/22/2020. 2 Urinary tract infection, rule out urosepsis. Chronic Panchal. 3 Prior history of COVID 19 pneumonitis. 4 Severe hypoxemic respiratory failure, rule out early acute respiratory distress syndrome (ARDS). 5 History of osteoarthritis. 6 History of pneumonia. 7 History of Raynaud's syndrome. 8 History of progressive systemic sclerosis (PSS). 9 History of varicose veins. 10 History of degenerative disc disease. 11 Lifelong nonsmoker. Plan: We will continue the current treatment plan for now Given a total of 2 week course of vancomycin Continue CellCept Prednisone as a wind down to 10 mg by mouth daily Titrate down the FiO2 as tolerated Plan is for discharge to [facility] on the [place] We will see as needed
[2020-11-28] MEDS: VANCOMYCIN 1,500 MG in SODIUM CHLORIDE 0.9% 250 ML IVPB SCH ×2 (13:30→20:30)
[2020-11-28] MEDS: MELATONIN 5 MG TABLET PO SCH (20:09)
[2020-11-28] MEDS: MORPHINE SULFATE ER 15 MG TABLET PO SCH (20:10)
[2020-11-28] MEDS: TAMSULOSIN 0.4 MG CAP.ER.24H PO SCH (20:11)
[2020-11-28] MEDS: ATORVASTATIN 20 MG TAB PO SCH (20:13)
[2020-11-28] MEDS: ASCORBIC ACID 500 MG TAB PO SCH (20:33)
--- NOTE | 2020-11-28 22:50 | PN ---
PROGRESS NOTE DATE OF SERVICE: 11/28/2020 REASON FOR FOLLOWUP: Pneumonia. INTERVAL HISTORY: The patient is currently afebrile. She is breathing slightly comfortably. The patient denies having any chest pain. She did have a cough with occasional sputum. No nausea, no vomiting. No abdominal pain. Still complaining of some diarrhea. PHYSICAL EXAMINATION: Blood pressure 125/63, pulse of 69, temperature 98.6. She is 91% on 6 L nasal cannula. General description is an elderly female up in the bed in no distress. RESPIRATORY SYSTEM: Unlabored breathing with decreased breath sounds at the base. No wheeze. HEART: S1, S2. Regular rate and rhythm. ABDOMEN: Soft. No tenderness. LABS: Hemoglobin is 9.1, white count 9.35, BUN of 10, creatinine 0.5. Sputum with MRSA and Lorrie. DIAGNOSTIC IMPRESSION AND PLAN: Patient admitted to hospital with shortness of breath and cough with concern for pneumonia. She clinically responded to the Zosyn, but now sputum is showing MRSA. Antibiotic has been adjusted to vancomycin. May consider Zyvox on discharge if no contraindication. Continue supportive care. MMODL / IJN: [id number] /
[2020-11-29] MEDS: HYDROcodone/APAP 10-325MG 1 EACH TAB PO PRN ×2 (03:01→15:13)
[2020-11-29] MEDS: GABAPENTIN 100 MG CAP PO SCH ×3 (05:44→22:28)
[2020-11-29] MEDS: CHOLECALCIFEROL 25 MCG (1000 IU) TABLET PO SCH (08:33)
[2020-11-29] MEDS: guaiFENesin 600 MG TABLET.ER PO SCH ×2 (08:34→22:27)
[2020-11-29] MEDS: ENOXAPARIN 40 MG/0.4 ML SYRINGE SQ SCH (08:34)
[2020-11-29] MEDS: METOPROLOL TARTRATE 12.5 MG TAB PO SCH ×2 (08:34→22:27)
[2020-11-29] MEDS: MELOXICAM 7.5 MG TAB PO SCH (08:34)
[2020-11-29] MEDS: predniSONE 10 MG TAB PO SCH (08:34)
[2020-11-29] MEDS: FAMOTIDINE 20 MG TAB PO SCH ×2 (08:34→22:28)
[2020-11-29] MEDS: ASPIRIN 81 MG PO SCH (08:34)
[2020-11-29] MEDS: MECLIZINE 12.5 MG TAB PO SCH ×3 (08:35→22:28)
[2020-11-29] MEDS: VANCOMYCIN 1,500 MG in SODIUM CHLORIDE 0.9% 250 ML IVPB SCH ×2 (08:35→22:28)
[2020-11-29] MEDS: NIFEdipine XL 30 MG TAB.ER.24 PO SCH ×2 (08:35→22:27)
[2020-11-29] MEDS: IPRATROPIUM-ALBUTEROL 3 ML NEB INHALATION SCH ×4 (09:11→19:31)
[2020-11-29 09:47] LABS: African American GFR (CKD) 128.9 (60.0-200.0); Non-African American GFR(CKD) 111.2 (60.0-200.0)
--- NOTE | 2020-11-29 10:11 | P.PN ---
Subjective Progress Note Date: 11/29/20 On today's evaluation of 11/28/2020 the patient remains on 6 L of oxygen by nasal cannula. Chest x-ray was done yesterday and showed persistent bilateral areas of acute infiltration/chronic infiltration and she does have baseline cardiomegaly and baseline ILD related to her systemic sclerosis. Noted the patient's older CAT scan of the chest also showed chronic ILD consistent with interstitial lung disease from connective tissue disease disorder. For now, the sputum is also positive for MRSA and the patient is currently on vancomycin. She is weak. She is quite debilitated. Her most recent CAT scan of the chest that was done on 11/22/2020. Indicated the possibility of progression of the diffuse bilateral groundglass pulmonary opacities. There was no evidence of any pulmonary embolism. There was small to moderate-sized Lymph Nodes along with Some Mild Cardiomegaly and T12 Compression Fracture of the Spine with a 30% Height Loss. In Terms of Her Scleroderma and ILD, the Patient Remains on CellCept and She Has Also Completed a Prednisone Burst Taper. CellCept Is Being Given a Dose of 500 Mg by Mouth 3 Times A Day. On 11/29/2020 the patient is on oxygen and she is currently at 6 L per minute nasal cannula. No major change compared to yesterday. Overnight, she was stable and she did not have any new complaints. She is spending most of the time in bed. She remains on vancomycin regarding the MRSA that was cultured in the sputum. As mentioned earlier, she has ILD related to scleroderma and in addition she got infected with COVID 19 which ended up Attributing her respirato ry failure and she developed ongoing persistent infiltrates and fibrotic changes in lung bases bilaterally following the Viral infection. No major swelling lower extremities. She is still on CellCept for now. She is also treated a prednisone burst taper. No altered mentation. Objective - Vital Signs Vital signs: Vital Signs Temp 97.9 F 11/29/20 07:31 Pulse 78 11/29/20 09:21 Resp 18 11/29/20 09:21 BP 107/58 11/29/20 07:31 Pulse Ox 90 L 11/29/20 07:31 Intake & Output 11/28/20 11/29/20 11/29/20 18:59 06:59 18:59 Intake Total 400 Output Total 1600 Balance -1200 Weight 75.75 kg Intake: Oral 400 Output: Urine 1600 Straight 800 Other: Voiding Method Indwelling Catheter Indwelling Catheter Indwelling Catheter # Bowel Movements 1 1 - Exam GENERAL EXAM: Alert, 75-year-old female patient, on 6 L high flow nasal cannula. Comfortable in no apparent distress. HEAD: Normocephalic. EYES: Normal reaction of pupils, equal size. NOSE: Clear with pink turbinates. THROAT: No erythema or exudates. NECK: No masses, no JVD. CHEST: No chest wall deformity. LUNGS: Equal air entry with bilateral scattered rhonchi, diminished. CVS: S1 and S2 normal with no audible murmur, regular rhythm. ABDOMEN: No hepatosplenomegaly, normal bowel sounds, no guarding or rigidity. SPINE: No scoliosis or deformity SKIN: No rashes CENTRAL NERVOUS SYSTEM: No focal deficits, tone is normal in all 4 extremities. EXTREMITIES: There is no peripheral edema. No clubbing, no cyanosis. Peripheral pulses are intact. - Labs CBC & Chem 7: 11/28/20 06:54 11/29/20 05:42 Labs: Abnormal Lab Results - Last 24 Hours (Table) 11/28/20 11/28/20 11/29/20 Range/Units 06:54 06:54 05:42 RBC 3.23 L (4.10-5.20) X 10*6/uL Hgb 9.1 L (12.0-15.0) g/dL Hct 32.2 L (37.2-46.3) % MCV 99.7 H (80.0-97.0) fL MCHC 28.3 L (32.0-37.0) g/dL RDW 15.6 H (11.5-14.5) % Immature Gran # 0.22 H (0.00-0.04) X 10*3/uL Eosinophils # 0.59 H (0.04-0.35) X 10*3/uL Creatinine 0.5 L 0.3 L (0.6-1.5) mg/dL AST 11 L (13-35) U/L Total Protein 5.4 L (6.2-8.2) g/dL Albumin 3.20 L (3.80-4.90) g/dL Albumin/Globulin Ratio 1.45 L (1.60-3.17) g/dL Microbiology - Last 24 Hours (Table) 11/25/20 08:54 Gram Stain - Final Sputum Sputum Culture - Final Methicillin resist S. aureus Lorrie albicans Assessment and Plan Plan: 1 Acute hypoxemic respiratory failure secondary to bilateral pneumonia, currently on 6 L high flow nasal cannula. Patient has chronic ILD evident on previous CAT scan of the chest in 2014 2015. Subsequently, she got Covid 19 in July 2020 diffuse bilateral groundglass pulmonary infiltrates somewhat patchy and peripheral more so in the lower lobes. Follow-up CAT scan of the chest showed chronic fibrotic changes in both fibrotic and interstitial changes bilaterally from September 2020 and October 2020. 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 A superinfection with bacterial pneumonia is likely as the patient positive for MRSA and the patient is still on vancomycin. On 6 L about 2 by nasal cannula. Vancomycin was administered back in 11/28/2020. Her pro-calcitonin level was mildly elevated at 0.14 on 11/22/2020. On today's evaluation of 11/29/2020, no change in the patient's condition and she is essentially stable compared to yesterday. 2 Urinary tract infection, rule out urosepsis. Chronic Panchal. 3 Prior history of COVID 19 pneumonitis. 4 Severe hypoxemic respiratory failure, rule out early acute respiratory distress syndrome (ARDS). 5 History of osteoarthritis. 6 History of pneumonia. 7 History of Raynaud's syndrome. 8 History of progressive systemic sclerosis (PSS). 9 History of varicose veins. 10 History of degenerative disc disease. 11 Lifelong nonsmoker. Plan: We will continue the current treatment plan for now Given a total of 2 week course of vancomycin, MRSA was cultured in the sputum mild may consider to switch her to Zyvox at time of discharge and ID is on the case. She does not have a PICC line for now. Continue CellCept Prednisone as a wind down to 10 mg by mouth daily Titrate down the FiO2 as tolerated, currently on 6 L oxygen by nasal cannula Discontinue the Panchal catheter Plan is for discharge to [facility] on the [place]/ [facility] We will see as needed
[2020-11-29] MEDS: BENZONATATE 100 MG CAP PO SCH ×3 (12:52→22:27)
--- NOTE | 2020-11-29 13:06 | P.PN ---
Subjective Progress Note Date: 11/28/20 Claribel Ruiz, is a 75-year-old female, who presented to [facility] emergency room with back pain and shortness of breath, she states that she fell about 1 week ago, patient was evaluated at [facility], computed tomography scan of the thoracic spine and the lumbar spine was done and revealed evidence of old T12 vertebral fracture without any evidence for new vertebral fractures, computed tomography scan also revealed extensive bilateral pulmonary infiltrates with bilateral pleural effusions, patient also had evidence of urinary tract infection, she had leukocytosis suggestive of sepsis, she was transferred to [facility] emergency room and then admitted to medical floor for further evaluation and treatment. Patient had several recent admissions to [facility], her last discharge was on 10/22/2020, over the last few months patient had evidence of Covid 19 pneumonia, she also had rectal pain and rectal bleeding and had surgery for hemorrhoids with Dr. Alatorre, she has underlying history of scleroderma, Raynaud's disease, hypertension, history of hyperlipidemia, history of osteoarthritis, history of osteoporosis, history of gastroesophageal reflux disease, history of chronic pain syndrome maintained on narcotics, history of pressure ulcer of the left buttock stage II, history of urinary retention requiring Panchal catheter placement patient was evaluated by urology on previous admission. Patient was evaluated at [facility] emergency room, her vital examination on presentation revealed a temperature of 97.8 pulse 108 respiration 18 blood pressure 102/67 pulse ox 94% on 3 L nasal cannula, her white blood count was 13.3 hemoglobin 10.4 platelet count 311 BUN 19 creatinine 0.44 Li virus PCR was negative. On 11/21/2020 patient was seen and examined on the medical floor she is alert and oriented 3 in no apparent distress she is complaining of stools incontinence patient stated that she is constantly having liquid stool coming out of the rectum she is also complaining of chest tightness and shortness of breath and occasional cough otherwise she denies any complaints. At this point will check stools for C. diff, consultation for gastroenterology was initiated. On 11/22/2020 patient was seen and examined on the medical floor he no apparent distress, she is complaining of shortness of breath she is maintained on oxygen via nasal cannula. Currently at 8 L per minute she has occasional cough she is maintained on IV antibiotic she was evaluated by pulmonary 80 scan angiogram of the chest was ordered however patient refused to have it so far. Otherwise she denies any complaints at this time there is no fever or chills no headache or dizziness no chest pain no nausea or vomiting no abdominal pain no diarrhea no blood in the stools no burning with urination no frequency or urgency and no hematuria. On 11/23/2020 patient was seen and examined on the medical floor she is somnolent arousable answer a few questions and returns to sleep she is maintained on oxygen via nasal cannula currently she is on 6 L/m she denies any chest pain denies any abdominal pain no nausea or vomiting she still has shortness of breath especially with any activity she is having some cough without any sputum production she is still having some stool incontinence. On 11/24/2020 patient was seen and examined on the medical floor she is still complaining of severe shortness of breath she is complaining of cough without sputum production there is no fever or chills no headache or dizziness no chest pain no palpitation no nausea or vomiting no abdominal pain no diarrhea no blood in the stools no burning with urination no frequency or urgency and no hematuria On 11/25/2020 patient is currently resting in bed currently working with physical therapy. Does state mild improvement. White blood cell improving to 9.6. Patient remains on IV Zosyn. Patient denies chest pain. Patient denies nausea vomiting or diarrhea. Patient denies any urinary burning or frequency. On 11/26/2020 patient was seen and examined on the medical floor she is alert and oriented 3 in no apparent distress she is still complaining of shortness of breath with any activity she is still complaining of leakage in the stools otherwise she denies any complaints at this time there is no fever or chills no headache or dizziness no chest pain no nausea or vomiting no abdominal pain no blood in the stools no burning with urination no frequency or urgency and no hematuria On 11/27/2020 patient is alert and oriented 3. Patient requesting Panchal catheter to be attempted to be removed. Voiding trial okay to be initiated per nursing staff. Patient was evaluated by urology services. Patient is having some shortness of breath today patient is on high flow 8 L improved. Patient denies chest pain. Patient denies any nausea or vomiting. Patient denies any urinary burning or frequency. On 11/28/2020 patient was seen and examined on the medical floor she is alert and oriented 3 in no apparent distress she is still complaining of shortness of breath and is maintained on oxygen 6 L via nasal cannula she has occasional cough no chest pain no palpitation no nausea or vomiting no abdominal pain no diarrhea no blood in the stools, patient still has Panchal catheter, plan is to discontinue Panchal catheter tomorrow in a.m. and monitor if patient can void. Sputum culture was positive for MRSA patient is maintained on IV vancomycin at this time Objective - Vital Signs Vital signs: Vital Signs Temp 98.0 F 11/28/20 08:00 Pulse 64 11/28/20 08:00 Resp 17 11/28/20 08:00 BP 112/67 11/28/20 08:00 Pulse Ox 98 11/28/20 08:00 Intake & Output 11/27/20 11/28/20 11/28/20 18:59 06:59 18:59 Output Total 400 600 Balance -400 -600 Output: Urine 400 600 Other: Voiding Method Indwelling Catheter Indwelling Catheter - Exam In general patient is alert and oriented 3 in no apparent distress HEENT head normocephalic and atraumatic Neck is supple no JVD no goiter no lymphadenopathy Chest exam reveals a scattered crackles bilaterally no wheezing Cardiac exam reveals regular heart sounds S1 and S2 with 2/6 systolic murmur in the left sternal border Abdomen is soft nontender no organomegaly with normal bowel sounds Extremity exam reveals 1+ edema Neurological examination reveals no gross focal deficit - Labs CBC & Chem 7: 11/28/20 06:54 11/29/20 05:42 Labs: Abnormal Lab Results - Last 24 Hours (Table) 11/27/20 11/27/20 Range/Units 05:48 05:48 RBC 3.24 L (4.10-5.20) X 10*6/uL Hgb 9.4 L (12.0-15.0) g/dL Hct 31.8 L (37.2-46.3) % MCV 98.1 H (80.0-97.0) fL MCHC 29.6 L (32.0-37.0) g/dL RDW 15.8 H (11.5-14.5) % Immature Gran # 0.23 H (0.00-0.04) X 10*3/uL Eosinophils # 0.64 H (0.04-0.35) X 10*3/uL Creatinine 0.5 L (0.6-1.5) mg/dL BUN/Creatinine Ratio 22.00 H (12.00-20.00) Ratio Total Protein 5.6 L (6.2-8.2) g/dL Albumin 3.20 L (3.80-4.90) g/dL Albumin/Globulin Ratio 1.33 L (1.60-3.17) g/dL Microbiology - Last 24 Hours (Table) 11/25/20 08:54 Gram Stain - Final Sputum Sputum Culture - Final Methicillin resist S. aureus Lorrie albicans Assessment and Plan Plan: 1. Bilateral pneumonia patient was evaluated at [facility] and transferred to [facility] she was started on IV antibiotics. She currently maintained on IV Zosyn. White blood cell improving. Pulmonary and infectious disease following 2. Bilateral pleural effusion will recheck chest x-ray in a.m. 3. Acute on chronic hypoxic respiratory failure 4. Sepsis as evidenced by leukocytosis, tachycardia, patient received IV fluid boluses and currently she is maintained on IV antibiotics blood pressure is stable and will monitor closely . 5. Recent fall with back pain Will continue with current narcotic regimen and adjust as needed 6. Recent surgery for hemorrhoids, patient is still complaining of pain in the rectal area and stool incontinence, will check stools for C. diff 7. Urinary retention, patient was evaluated by urology on previous admission, she is still has a Panchal catheter, will consult urology again for evaluation. Per urology services trial void prior to discharge follow-up outpatient in 12 weeks 8. Evidence of urinary tract infection Will continue with current antibiotics awaiting urine and blood culture results 9. Underlying history of scleroderma 10. Underlying history of hypertension 11. Underlying history of hyperlipidemia 12. Underlying history of chronic pain syndrome maintained on narcotics 13. Underlying history of gastroesophageal reflux disease. 14. Underlying history of anxiety disorder. At this time patient is admitted to medical floor, she is started on IV antibiot ics Home medications reviewed and reordered Check stools for C. diff, test was negative Pulmonary, GI services, infectious disease and urology services following Social work consult for possible rehab upon discharge PT OT consulted
--- NOTE | 2020-11-29 13:08 | P.PN ---
Subjective Progress Note Date: 11/29/20 Claribel Ruiz, is a 75-year-old female, who presented to [facility] emergency room with back pain and shortness of breath, she states that she fell about 1 week ago, patient was evaluated at [facility], computed tomography scan of the thoracic spine and the lumbar spine was done and revealed evidence of old T12 vertebral fracture without any evidence for new vertebral fractures, computed tomography scan also revealed extensive bilateral pulmonary infiltrates with bilateral pleural effusions, patient also had evidence of urinary tract infection, she had leukocytosis suggestive of sepsis, she was transferred to [facility] emergency room and then admitted to medical floor for further evaluation and treatment. Patient had several recent admissions to [facility], her last discharge was on 10/22/2020, over the last few months patient had evidence of Covid 19 pneumonia, she also had rectal pain and rectal bleeding and had surgery for hemorrhoids with Dr. Alatorre, she has underlying history of scleroderma, Raynaud's disease, hypertension, history of hyperlipidemia, history of osteoarthritis, history of osteoporosis, history of gastroesophageal reflux disease, history of chronic pain syndrome maintained on narcotics, history of pressure ulcer of the left buttock stage II, history of urinary retention requiring Panchal catheter placement patient was evaluated by urology on previous admission. Patient was evaluated at [facility] emergency room, her vital examination on presentation revealed a temperature of 97.8 pulse 108 respiration 18 blood pressure 102/67 pulse ox 94% on 3 L nasal cannula, her white blood count was 13.3 hemoglobin 10.4 platelet count 311 BUN 19 creatinine 0.44 Li virus PCR was negative. On 11/21/2020 patient was seen and examined on the medical floor she is alert and oriented 3 in no apparent distress she is complaining of stools incontinence patient stated that she is constantly having liquid stool coming out of the rectum she is also complaining of chest tightness and shortness of breath and occasional cough otherwise she denies any complaints. At this point will check stools for C. diff, consultation for gastroenterology was initiated. On 11/22/2020 patient was seen and examined on the medical floor he no apparent distress, she is complaining of shortness of breath she is maintained on oxygen via nasal cannula. Currently at 8 L per minute she has occasional cough she is maintained on IV antibiotic she was evaluated by pulmonary 80 scan angiogram of the chest was ordered however patient refused to have it so far. Otherwise she denies any complaints at this time there is no fever or chills no headache or dizziness no chest pain no nausea or vomiting no abdominal pain no diarrhea no blood in the stools no burning with urination no frequency or urgency and no hematuria. On 11/23/2020 patient was seen and examined on the medical floor she is somnolent arousable answer a few questions and returns to sleep she is maintained on oxygen via nasal cannula currently she is on 6 L/m she denies any chest pain denies any abdominal pain no nausea or vomiting she still has shortness of breath especially with any activity she is having some cough without any sputum production she is still having some stool incontinence. On 11/24/2020 patient was seen and examined on the medical floor she is still complaining of severe shortness of breath she is complaining of cough without sputum production there is no fever or chills no headache or dizziness no chest pain no palpitation no nausea or vomiting no abdominal pain no diarrhea no blood in the stools no burning with urination no frequency or urgency and no hematuria On 11/25/2020 patient is currently resting in bed currently working with physical therapy. Does state mild improvement. White blood cell improving to 9.6. Patient remains on IV Zosyn. Patient denies chest pain. Patient denies nausea vomiting or diarrhea. Patient denies any urinary burning or frequency. On 11/26/2020 patient was seen and examined on the medical floor she is alert and oriented 3 in no apparent distress she is still complaining of shortness of breath with any activity she is still complaining of leakage in the stools otherwise she denies any complaints at this time there is no fever or chills no headache or dizziness no chest pain no nausea or vomiting no abdominal pain no blood in the stools no burning with urination no frequency or urgency and no hematuria On 11/27/2020 patient is alert and oriented 3. Patient requesting Panchal catheter to be attempted to be removed. Voiding trial okay to be initiated per nursing staff. Patient was evaluated by urology services. Patient is having some shortness of breath today patient is on high flow 8 L improved. Patient denies chest pain. Patient denies any nausea or vomiting. Patient denies any urinary burning or frequency. On 11/28/2020 patient was seen and examined on the medical floor she is alert and oriented 3 in no apparent distress she is still complaining of shortness of breath and is maintained on oxygen 6 L via nasal cannula she has occasional cough no chest pain no palpitation no nausea or vomiting no abdominal pain no diarrhea no blood in the stools, patient still has Panchal catheter, plan is to discontinue Panchal catheter tomorrow in a.m. and monitor if patient can void. Sputum culture was positive for MRSA patient is maintained on IV vancomycin at this time. On 11/29/2020 patient was seen and examined on the medical floor she is alert and oriented 3 in no apparent distress there is no fever or chills no headache or dizziness, she is still complaining of shortness of breath, she is maintained on oxygen 4 L via nasal cannula at this time she still has episodes of cough, no nausea or vomiting no abdominal pain no diarrhea no blood in the stools Panchal catheter was removed this a.m. patient has not voided yet, will monitor closely Objective - Vital Signs Vital signs: Vital Signs Temp 97.9 F 11/29/20 07:31 Pulse 88 11/29/20 12:12 Resp 18 11/29/20 12:12 BP 107/58 11/29/20 07:31 Pulse Ox 90 L 11/29/20 07:31 Intake & Output 11/28/20 11/29/20 11/29/20 18:59 06:59 18:59 Intake Total 400 Output Total 1600 Balance -1200 Weight 75.75 kg Intake: Oral 400 Output: Urine 1600 Straight 800 Other: Voiding Method Indwelling Catheter Indwelling Catheter Indwelling Catheter # Bowel Movements 1 1 - Exam In general patient is alert and oriented 3 in no apparent distress HEENT head normocephalic and atraumatic Neck is supple no JVD no goiter no lymphadenopathy Chest exam reveals a scattered crackles bilaterally no wheezing Cardiac exam reveals regular heart sounds S1 and S2 with 2/6 systolic murmur in the left sternal border Abdomen is soft nontender no organomegaly with normal bowel sounds Extremity exam reveals 1+ edema Neurological examination reveals no gross focal deficit - Labs CBC & Chem 7: 11/28/20 06:54 11/29/20 05:42 Labs: Abnormal Lab Results - Last 24 Hours (Table) 11/29/20 Range/Units 05:42 Creatinine 0.3 L (0.6-1.5) mg/dL Microbiology - Last 24 Hours (Table) 11/25/20 08:54 Gram Stain - Final Sputum Sputum Culture - Final Methicillin resist S. aureus Lorrie albicans Assessment and Plan Plan: 1. Bilateral pneumonia patient was evaluated at [facility] and transferred to [facility] she was started on IV antibiotics. She currently maintained on IV Zosyn. White blood cell improving. Pulmonary and infectious disease following 2. Bilateral pleural effusion will recheck chest x-ray in a.m. 3. Acute on chronic hypoxic respiratory failure 4. Sepsis as evidenced by leukocytosis, tachycardia, patient received IV fluid boluses and currently she is maintained on IV antibiotics blood pressure is stable and will monitor closely . 5. Recent fall with back pain Will continue with current narcotic regimen and adjust as needed 6. Recent surgery for hemorrhoids, patient is still complaining of pain in the rectal area and stool incontinence, will check stools for C. diff 7. Urinary retention, patient was evaluated by urology on previous admission, she is still has a Panchal catheter, will consult urology again for evaluation. Per urology services trial void prior to discharge follow-up outpatient in 12 weeks 8. Evidence of urinary tract infection Will continue with current antibiotics awaiting urine and blood culture results 9. Underlying history of scleroderma 10. Underlying history of hypertension 11. Underlying history of hyperlipidemia 12. Underlying history of chronic pain syndrome maintained on narcotics 13. Underlying history of gastroesophageal reflux disease. 14. Underlying history of anxiety disorder. At this time patient is admitted to medical floor, she is started on IV an tibiotics Home medications reviewed and reordered Check stools for C. diff, test was negative Pulmonary, GI services, infectious disease and urology services following Social work consult for possible rehab upon discharge PT OT consulted
--- NOTE | 2020-11-29 14:48 | P.PN ---
Subjective Progress Note Date: 11/29/20 HISTORY OF PRESENT ILLNESS This is a 75-year-old female patient treated for pneumonia . CAT scan showed i ncreased deep interstitial infiltrate question of infection. Patient was covered with Zosyn transitioned to vancomycin due to MRSA and sputum culture. She continues to have cough with sputum production. She denies chest pain. No abdominal pain, nausea, vomiting or diarrhea. She does complain of continued shortness of breath at rest and worse with activity. She is complaining of hemorrhoids which we will defer to her primary team. She has been afebrile, heart rate 76, blood pressure 106/67, pulse ox 91% on 4 L nasal cannula. Creatinine 0.3. PHYSICAL EXAMINATION Gen: This is a 75-year-old female patient resting in bed. HEENT: Head is atraumatic, normocephalic. Pupils equal, round. Sclerae is anicteric. NECK: Supple. No JVD. No lymphadenopathy. LUNGS: Coarse breath sounds bilaterally. No wheezing. HEART: Regular rate and rhythm. No murmur. ABDOMEN: Soft. Bowel sounds are present. No masses. No tenderness. EXTREMITIES: No pedal edema. No calf tenderness. NEUROLOGICAL: Patient is awake, alert and oriented x3. ASSESSMENT Bilateral pneumonia, possible gram-negative pneumonia Acute hypoxic respiratory failure Possible Catheter associated Urinary tract infection secondary to chronic Panchal, ruled out PLAN Continue vancomycin, pharmacy dosing Further recommendations as patient progresses. The above dictated assessment and findings were discussed with Dr. Wallace. The impression and plan of care have been directed as dictated. Antonieta Nguyen nurse practitioner acting as scribe for Dr. Wallace. Objective - Vital Signs Vital signs: Vital Signs Temp 97.9 F 11/29/20 07:31 Pulse 78 11/29/20 09:21 Resp 18 11/29/20 09:21 BP 107/58 11/29/20 07:31 Pulse Ox 90 L 11/29/20 07:31 Intake & Output 11/28/20 11/29/20 11/29/20 18:59 06:59 18:59 Intake Total 400 Output Total 1600 Balance -1200 Weight 75.75 kg Intake: Oral 400 Output: Urine 1600 Straight 800 Other: Voiding Method Indwelling Catheter Indwelling Catheter Indwelling Catheter # Bowel Movements 1 1 - Labs CBC & Chem 7: 11/28/20 06:54 11/29/20 05:42 Labs: Abnormal Lab Results - Last 24 Hours (Table) 11/29/20 Range/Units 05:42 Creatinine 0.3 L (0.6-1.5) mg/dL Microbiology - Last 24 Hours (Table) 11/25/20 08:54 Gram Stain - Final Sputum Sputum Culture - Final Methicillin resist S. aureus Lorrie albicans
[2020-11-29] MEDS: MELATONIN 5 MG TABLET PO SCH (22:27)
[2020-11-29] MEDS: ATORVASTATIN 20 MG TAB PO SCH (22:27)
[2020-11-29] MEDS: TAMSULOSIN 0.4 MG CAP.ER.24H PO SCH (22:27)
[2020-11-29] MEDS: ASCORBIC ACID 500 MG TAB PO SCH (22:28)
[2020-11-29] MEDS: MORPHINE SULFATE ER 15 MG TABLET PO SCH (22:29)
[2020-11-30] MEDS: GABAPENTIN 100 MG CAP PO SCH ×3 (05:17→21:06)
[2020-11-30] MEDS ORDERED: VANCOMYCIN TROUGH DUE 1 EACH MISC MISCELLANE ONE (08:00)
[2020-11-30] MEDS: IPRATROPIUM-ALBUTEROL 3 ML NEB INHALATION SCH ×4 (09:00→20:49)
[2020-11-30] MEDS: guaiFENesin 600 MG TABLET.ER PO SCH ×2 (09:28→21:06)
[2020-11-30] MEDS: predniSONE 10 MG TAB PO SCH (09:28)
[2020-11-30] MEDS: FAMOTIDINE 20 MG TAB PO SCH ×2 (09:28→21:06)
[2020-11-30] MEDS: BENZONATATE 100 MG CAP PO SCH ×3 (09:28→21:06)
[2020-11-30] MEDS: MELOXICAM 7.5 MG TAB PO SCH (09:28)
[2020-11-30] MEDS: ENOXAPARIN 40 MG/0.4 ML SYRINGE SQ SCH (09:28)
[2020-11-30] MEDS: METOPROLOL TARTRATE 12.5 MG TAB PO SCH ×2 (09:28→21:05)
[2020-11-30] MEDS: CHOLECALCIFEROL 25 MCG (1000 IU) TABLET PO SCH (09:28)
[2020-11-30] MEDS: ASPIRIN 81 MG PO SCH (09:28)
[2020-11-30] MEDS: MECLIZINE 12.5 MG TAB PO SCH ×3 (09:30→21:06)
[2020-11-30] MEDS: NIFEdipine XL 30 MG TAB.ER.24 PO SCH ×2 (09:31→21:06)
[2020-11-30] MEDS: VANCOMYCIN 1,500 MG in SODIUM CHLORIDE 0.9% 250 ML IVPB SCH (09:40)
--- NOTE | 2020-11-30 10:54 | P.PN ---
Subjective Progress Note Date: 11/30/20 Principal diagnosis: Acute hypoxemic respiratory failure secondary to bilateral pneumonia This is a 75-year-old female that is transferred down from [facility]. She [place] in the [place]. The patient was recently diagnosed with a urinary tract infection and pneumonia. She was also diagnosed with sepsis and placed on oxygen at 3 L. Typically she is not on oxygen therapy. The patient was transferred down to for further management and evaluation. Her complaints include primarily shortness of breath, and cough. She's not producing much or any phlegm. She denies any chest pain. She also denies any nausea, vomiting, or diarrhea. She denied any fever or chills. She did recently fall, and injured her back. Apparently there were no fractures noted. Currently, her chest x-ray showing diffuse bilateral infiltrates. Her primary care provider is Dr. Darcy Araujo. Chest x-ray showed bilateral infiltrates, right greater than left. Her COVID 19 testing was negative. Her white count was 8.1 down from 13.3, white count 10.3, hematocrit 34.1, and platelet count 314,000. Sodium was 139, potassium 5.1, chloride 107, CO2 24, anion gap 8, BUN 16, c reatinine 0.37. Her urine was yellow and cloudy with a specific gravity 1.037. Her leukocyte esterase test was moderately positive with 20 WBCs, and rare bacteria. Currently, she is on vancomycin and also Zosyn. Culture data including blood sampling, sputum, and urine are either pending or negative. Clinically, she was requiring 10 L high flow nasal cannula for saturations between 93-97%. She did not appear to have any significant distress. Progress note dated 11/22/2020. 75-year-old female that we saw yesterday in consultation. She was transferred down from [facility], with urinary tract infection and pneumonia. Currently, she is on 10 L high flow nasal O2. Today, she complains mostly of nasal congestion and stuffiness. We recommended some Flonase nasal spray for that. In addition, because of her diffuse bilateral infiltrates, we went ahead and ordered a CT angiogram. Her white count is 12.3, hemoglobin 9.5, hematocrit 34.4, and platelet count 313,000. Sodium is 144, potassium 4.3, chlorides 110, CO2 26, anion gap 8, BUN and creatinine of 20 and 0.5. Her urinalysis from yesterday shows a urine to be yellow and cloudy, with moderate positive leukocyte esterase, 20 WBCs, and rare bacteria. Coronavirus testing was negative although she did have COVID 19 in the past. Current temperature is 98.1, heart rate 80, respiratory rate 16, blood pressure 107/66, with a mean of 79, and saturations are 93% 10 L high flow nasal O2. Patient is seen today 11/23/2020 in follow-up on the regular medical floor. She is currently sitting up in a chair at the bedside. Awake and alert in no acute distress. Maintaining O2 saturations up to 100% on 15 L nonrebreather mask. She's afebrile. Tachycardic. White count 14.6. Hemoglobin 10.0. Sodium 141. Potassium 4.1. Creatinine 0.5. She remains on bronchodilators, insulin. Antibiotics in the form of Zosyn. The patient is seen today 11/24/2020 in follow-up on the regular medical floor. She is currently sitting up in bed. Breathing a bit easier today compared to yesterday. Still requiring 10 L high flow nasal cannula. Urine culture revealed no growth. White count 11.0. Hemoglobin 9.7. Sodium 139. Potassium 3.8. Creatinine 0.4. Remains on bronchodilators, prednisone. Antibiotics in the form of Zosyn. The patient is seen today 11/25/2020 in follow-up on the regular medical floor. She is currently resting comfortably in bed. Breathing easier today compared to yesterday. Currently on 8 L high flow nasal cannula. She's afebrile. Hemodynamically stable. White count 9.6. Hemoglobin 10.1. Sodium 138. Potassium 4.1. Creatinine 0.39. She remains on DuoNeb inhalations, prednisone. Lovenox for DVT prophylaxis. Antibiotics in the form of Zosyn. Urine culture revealed no growth. On today's evaluation of 11/28/2020 the patient remains on 6 L of oxygen by nasal cannula. Chest x-ray was done yesterday and showed persistent bilateral areas of acute infiltration/chronic infiltration and she does have baseline cardiomegaly and baseline ILD related to her systemic sclerosis. Noted the patient's older CAT scan of the chest also showed chronic ILD consistent with interstitial lung disease from connective tissue disease disorder. For now, the sputum is also positive for MRSA and the patient is currently on vancomycin. She is weak. She is quite debilitated. Her most recent CAT scan of the chest that was done on 11/22/2020. Indicated the possibility of progression of the diffuse bilateral groundglass pulmonary opacities. There was no evidence of any pulmonary embolism. There was small to moderate-sized Lymph Nodes along with Some Mild Cardiomegaly and T12 Compression Fracture of the Spine with a 30% Height Loss. In Terms of Her Scleroderma and ILD, the Patient Remains on CellCept and She Has Also Completed a Prednisone Burst Taper. CellCept Is Being Given a Dose of 500 Mg by Mouth 3 Times A Day. On 11/29/2020 the patient is on oxygen and she is currently at 6 L per minute nasal cannula. No major change compared to yesterday. Overnight, she was stable and she did not have any new complaints. She is spending most of the time in bed. She remains on vancomycin regarding the MRSA that was cultured in the sputum. As mentioned earlier, she has ILD related to scleroderma and in addition she got infected with COVID 19 which ended up Attributing her res piratory failure and she developed ongoing persistent infiltrates and fibrotic changes in lung bases bilaterally following the Viral infection. No major swelling lower extremities. She is still on CellCept for now. She is also treated a prednisone burst taper. No altered mentation. The patient is seen today 11/30/2020 and follow-up on the regular medical floor. She is currently sitting up in a chair at the bedside. Awake and alert in no acute distress. Earlier this morning she had issues with desaturation on 6 L and required Ventimask placement. She is up to 95-99%. She'll be transitioned back to 6 L high flow nasal cannula. No worsening shortness of breath, cough or congestion. Chest x-ray continues to show persistent bilateral area areas of acute infiltration on background ILD and COPD. Possible ARDS. No significant improvement. Sputum culture from back on the was positive for MRSA and Lorrie. She remains on vancomycin. Continued on bronchodilators, prednisone t aper. Lovenox for DVT prophylaxis. Remains on CellCept for her scleroderma and ILD Objective - Vital Signs Vital signs: Vital Signs Temp 98.4 F 11/30/20 08:30 Pulse 104 H 11/30/20 08:46 Resp 24 11/30/20 08:46 BP 132/67 11/30/20 08:30 Pulse Ox 95 11/30/20 08:59 Intake & Output 11/29/20 11/30/20 11/30/20 18:59 06:59 18:59 Intake Total 100 Output Total 1000 1400 Balance -1000 -1300 Intake: Oral 100 Output: Urine 1000 1400 Straight 700 Other: Voiding Method Indwelling Catheter Indwelling Catheter Indwelling Catheter # Bowel Movements 2 - Exam GENERAL EXAM: Alert, 75-year-old male, cachectic female patient, on 6 L high flow nasal cannula. Comfortable in no apparent distress. HEAD: Normocephalic. EYES: Normal reaction of pupils, equal size. NOSE: Clear with pink turbinates. THROAT: No erythema or exudates. NECK: No masses, no JVD. CHEST: No chest wall deformity. LUNGS: Equal air entry with bilateral scattered rhonchi, diminished. CVS: S1 and S2 normal with no audible murmur, regular rhythm. ABDOMEN: No hepatosplenomegaly, normal bowel sounds, no guarding or rigidity. SPINE: No scoliosis or deformity SKIN: No rashes CENTRAL NERVOUS SYSTEM: No focal deficits, tone is normal in all 4 extremities. EXTREMITIES: There is no peripheral edema. No clubbing, no cyanosis. Peripheral pulses are intact. - Labs CBC & Chem 7: 11/28/20 06:54 11/29/20 05:42 Assessment and Plan Assessment: 1 Acute hypoxemic respiratory failure secondary to bilateral pneumonia, currently on 6 L high flow nasal cannula. Patient has chronic ILD evident on previous CAT scan of the chest in 2014 2015. Subsequently, she got Covid 19 in July 2020 diffuse bilateral groundglass pulmonary infiltrates somewhat patchy and peripheral more so in the lower lobes. Follow-up CAT scan of the chest showed chronic fibrotic changes in both fibrotic and interstitial changes bilaterally from September 2020 and October 2020. 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 A superinfection with bacterial pneumonia is likely as the patient positive for MRSA and the patient is still on vancomycin. Her pro-calcitonin level was mildly elevated at 0.14 on 11/22/2020. On today's evaluation of 11/30/2020, no change in the patient's condition and she is essentially stable compared to yesterday. 2 Urinary tract infection, rule out urosepsis. Chronic Panchal. 3 Prior history of COVID 19 pneumonitis. 4 Severe hypoxemic respiratory failure, rule out early acute respiratory distress syndrome (ARDS). 5 History of osteoarthritis. 6 History of pneumonia. 7 History of Raynaud's syndrome. 8 History of progressive systemic sclerosis (PSS). 9 History of varicose veins. 10 History of degenerative disc disease. 11 Lifelong nonsmoker. Plan: The patient was seen and evaluated by Dr. Woo We will continue the current treatment plan for now Titrate down the FiO2 as tolerated Overall prognosis is poor DO NOT RESUSCITATE/DO NOT INTUBATE CODE STATUS Plan is for discharge to [facility] on the Lara I, the cosigning physician, performed a history & physical examination of the patient. Lungs sounds scattered rhonchi, diminished. Maintaining good O2 saturations in the 90s on 6 L high flow nasal cannula. I discussed the assessment and plan of care with my nurse practitioner, Marti Espinoza. I attest to the above note as dictated by her.
--- NOTE | 2020-11-30 12:39 | XR ---
EXAMINATION TYPE: XR chest 1V portable DATE OF EXAM: 11/30/2020 Comparison: 11/27/2020 Clinical History: 75-year-old female shortness of breath, difficulty breathing, Hypoxemia Findings: Slight rightward patient rotation. Left heart margin obscured by adjacent pleural parenchymal opacity . Diffuse bilateral patchy and confluent airspace opacity, slightly worsening now in the left mid and lower lung. No sizable effusion seen. Impression: Continued diffuse bilateral patchy and confluent airspace disease, slightly worsening on the left.
--- NOTE | 2020-11-30 13:30 | P.PN ---
Subjective Progress Note Date: 11/30/20 Claribel Ruiz, is a 75-year-old female, who presented to [facility] emergency room with back pain and shortness of breath, she states that she fell about 1 week ago, patient was evaluated at [facility], computed tomography scan of the thoracic spine and the lumbar spine was done and revealed evidence of old T12 vertebral fracture without any evidence for new vertebral fractures, computed tomography scan also revealed extensive bilateral pulmonary infiltrates with bilateral pleural effusions, patient also had evidence of urinary tract infection, she had leukocytosis suggestive of sepsis, she was transferred to [facility] emergency room and then admitted to medical floor for further evaluation and treatment. Patient had several recent admissions to [facility], her last discharge was on 10/22/2020, over the last few months patient had evidence of Covid 19 pneumonia, she also had rectal pain and rectal bleeding and had surgery for hemorrhoids with Dr. Alatorre, she has underlying history of scleroderma, Raynaud's disease, hypertension, history of hyperlipidemia, history of osteoarthritis, history of osteoporosis, history of gastroesophageal reflux disease, history of chronic pain syndrome maintained on narcotics, history of pressure ulcer of the left buttock stage II, history of urinary retention requiring Panchal catheter placement patient was evaluated by urology on previous admission. Patient was evaluated at [facility] emergency room, her vital examination on presentation revealed a temperature of 97.8 pulse 108 respiration 18 blood pressure 102/67 pulse ox 94% on 3 L nasal cannula, her white blood count was 13.3 hemoglobin 10.4 platelet count 311 BUN 19 creatinine 0.44 Li virus PCR was negative. On 11/21/2020 patient was seen and examined on the medical floor she is alert and oriented 3 in no apparent distress she is complaining of stools incontinence patient stated that she is constantly having liquid stool coming out of the rectum she is also complaining of chest tightness and shortness of breath and occasional cough otherwise she denies any complaints. At this point will check stools for C. diff, consultation for gastroenterology was initiated. On 11/22/2020 patient was seen and examined on the medical floor he no apparent distress, she is complaining of shortness of breath she is maintained on oxygen via nasal cannula. Currently at 8 L per minute she has occasional cough she is maintained on IV antibiotic she was evaluated by pulmonary 80 scan angiogram of the chest was ordered however patient refused to have it so far. Otherwise she denies any complaints at this time there is no fever or chills no headache or dizziness no chest pain no nausea or vomiting no abdominal pain no diarrhea no blood in the stools no burning with urination no frequency or urgency and no hematuria. On 11/23/2020 patient was seen and examined on the medical floor she is somnolent arousable answer a few questions and returns to sleep she is maintained on oxygen via nasal cannula currently she is on 6 L/m she denies any chest pain denies any abdominal pain no nausea or vomiting she still has shortness of breath especially with any activity she is having some cough without any sputum production she is still having some stool incontinence. On 11/24/2020 patient was seen and examined on the medical floor she is still complaining of severe shortness of breath she is complaining of cough without sputum production there is no fever or chills no headache or dizziness no chest pain no palpitation no nausea or vomiting no abdominal pain no diarrhea no blood in the stools no burning with urination no frequency or urgency and no hematuria On 11/25/2020 patient is currently resting in bed currently working with physical therapy. Does state mild improvement. White blood cell improving to 9.6. Patient remains on IV Zosyn. Patient denies chest pain. Patient denies nausea vomiting or diarrhea. Patient denies any urinary burning or frequency. On 11/26/2020 patient was seen and examined on the medical floor she is alert and oriented 3 in no apparent distress she is still complaining of shortness of breath with any activity she is still complaining of leakage in the stools otherwise she denies any complaints at this time there is no fever or chills no headache or dizziness no chest pain no nausea or vomiting no abdominal pain no blood in the stools no burning with urination no frequency or urgency and no hematuria On 11/27/2020 patient is alert and oriented 3. Patient requesting Panchal catheter to be attempted to be removed. Voiding trial okay to be initiated per nursing staff. Patient was evaluated by urology services. Patient is having some shortness of breath today patient is on high flow 8 L improved. Patient denies chest pain. Patient denies any nausea or vomiting. Patient denies any urinary burning or frequency. On 11/28/2020 patient was seen and examined on the medical floor she is alert and oriented 3 in no apparent distress she is still complaining of shortness of breath and is maintained on oxygen 6 L via nasal cannula she has occasional cough no chest pain no palpitation no nausea or vomiting no abdominal pain no diarrhea no blood in the stools, patient still has Panchal catheter, plan is to discontinue Panchal catheter tomorrow in a.m. and monitor if patient can void. Sputum culture was positive for MRSA patient is maintained on IV vancomycin at this time. On 11/29/2020 patient was seen and examined on the medical floor she is alert and oriented 3 in no apparent distress there is no fever or chills no headache or dizziness, she is still complaining of shortness of breath, she is maintained on oxygen 4 L via nasal cannula at this time she still has episodes of cough, no nausea or vomiting no abdominal pain no diarrhea no blood in the stools Panchal catheter was removed this a.m. patient has not voided yet, will monitor closely On 11/30/2020 patient is alert and oriented 3 resting comfortably in bed. Per nursing staff patient had episode of desaturation likely secondary to anxiety. Pulmonary services are following repeat chest x-ray ordered. At this time patient is resting comfortably in bed. Patient is now on high flow oxygen 12L Objective - Vital Signs Vital signs: Vital Signs Temp 98.4 F 11/30/20 08:30 Pulse 98 11/30/20 11:30 Resp 24 11/30/20 08:46 BP 132/67 11/30/20 08:30 Pulse Ox 95 11/30/20 08:59 Intake & Output 11/29/20 11/30/20 11/30/20 18:59 06:59 18:59 Intake Total 100 Output Total 1000 1400 Balance -1000 -1300 Intake: Oral 100 Output: Urine 1000 1400 Straight 700 Other: Voiding Method Indwelling Catheter Indwelling Catheter Indwelling Catheter # Bowel Movements 2 - Exam In general patient is alert and oriented 3 in no apparent distress HEENT head normocephalic and atraumatic Neck is supple no JVD no goiter no lymphadenopathy Chest exam reveals a scattered crackles bilaterally no wheezing Cardiac exam reveals regular heart sounds S1 and S2 with 2/6 systolic murmur in the left sternal border Abdomen is soft nontender no organomegaly with normal bowel sounds Extremity exam reveals 1+ edema Neurological examination reveals no gross focal deficit - Labs CBC & Chem 7: 11/28/20 06:54 11/29/20 05:42 Assessment and Plan Plan: 1. Bilateral pneumonia patient was evaluated at [facility] and transferred to [facility] she was started on IV antibiotics. She currently maintained on IV Zosyn. White blood cell improving. Pulmonary and infectious disease following. Sputum showing MRSA. Patient currently on Zyvox 2. Bilateral pleural effusion will recheck chest x-ray in a.m. 3. Acute on chronic hypoxic respiratory failure 4. Sepsis as evidenced by leukocytosis, tachycardia, patient received IV fluid boluses and currently she is maintained on IV antibiotics blood pressure is stable and will monitor closely . 5. Recent fall with back pain Will continue with current narcotic regimen and adjust as needed 6. Recent surgery for hemorrhoids, patient is still complaining of pain in the rectal area and stool incontinence, will check stools for C. diff 7. Urinary retention, patient was evaluated by urology on previous admission, she is still has a Panchal catheter, will consult urology again for evaluation. Per urology services trial void prior to discharge follow-up outpatient in 12 weeks 8. Evidence of urinary tract infection Will continue with current antibiotics awaiting urine and blood culture results 9. Underlying history of scleroderma 10. Underlying history of hypertension 11. Underlying history of hyperlipidemia 12. Underlying history of chronic pain syndrome maintained on narcotics 13. Underlying history of gastroesophageal reflux disease. 14. Underlying history of anxiety disorder. At this time patient is admitted to medical floor, she is started on IV antibiotics Home medications reviewed and reordered Check stools for C. diff, test was negative Pulmonary, GI services, infectious disease and urology services following Social work consult for possible rehab upon discharge PT OT consulted
[2020-11-30 13:58] LABS: African American GFR (CKD) >90 (>60 ml/min/1.73 sqM); Non-African American GFR(CKD) >90 (>60 ml/min/1.73 sqM)
[2020-11-30] MEDS: LINEZOLID 600 MG TAB PO SCH ×2 (14:17→21:06)
--- NOTE | 2020-11-30 16:43 | P.PN ---
Subjective Progress Note Date: 11/30/20 HISTORY OF PRESENT ILLNESS This is a 75-year-old female patient treated for pneumonia . CAT scan showed i ncreased deep interstitial infiltrate question of infection. Patient was covered with vancomycin due to MRSA in sputum culture. She continues to have cough with sputum production. She had episode of hypoxia today requiring Ventimask. She denies chest pain. No abdominal pain, nausea, vomiting or diarrhea. She does complain of continued shortness of breath at rest and worse with activity. She has been afebrile, heart rate 104, blood pressure 132/67, pulse ox 92% on 9 L high flow nasal cannula. Creatinine 0.3. At time of evaluation, patient has no IV access. PHYSICAL EXAMINATION Gen: This is a 75-year-old female patient resting in bed. Mild accessory muscle usage. HEENT: Head is atraumatic, normocephalic. Pupils equal, round. Sclerae is anicteric. NECK: Supple. No JVD. No lymphadenopathy. LUNGS: Coarse breath sounds bilaterally. No wheezing. HEART: Regular rate and rhythm. No murmur. ABDOMEN: Soft. Bowel sounds are present. No masses. No tenderness. EXTREMITIES: No pedal edema. No calf tenderness. NEUROLOGICAL: Patient is awake, alert and oriented x3. ASSESSMENT Bilateral MRSA pneumonia Acute hypoxic respiratory failure Possible Catheter associated Urinary tract infection secondary to chronic Panchal, ruled out PLAN Discontinue vancomycin Patient will be started on Zyvox 600 mg oral twice daily and will be option for home Further recommendations as patient progresses. The above dictated assessment and findings were discussed with Dr. Wallace. The impression and plan of care have been directed as dictated. Antonieta Nguyen nurse practitioner acting as scribe for Dr. Wallace. Objective - Vital Signs Vital signs: Vital Signs Temp 98.4 F 11/30/20 08:30 Pulse 104 H 11/30/20 08:46 Resp 24 11/30/20 08:46 BP 132/67 11/30/20 08:30 Pulse Ox 95 11/30/20 08:59 Intake & Output 11/29/20 11/30/20 11/30/20 18:59 06:59 18:59 Intake Total 100 Output Total 1000 1400 Balance -1000 -1300 Intake: Oral 100 Output: Urine 1000 1400 Straight 700 Other: Voiding Method Indwelling Catheter Indwelling Catheter Indwelling Catheter # Bowel Movements 2 - Labs CBC & Chem 7: 03/01/21 06:54 11/30/20 07:54
[2020-11-30] MEDS ORDERED: VANCOMYCIN 1,250 MG in SODIUM CHLORIDE 0.9% 250 ML IVPB SCH (21:00)
[2020-11-30] MEDS: MELATONIN 5 MG TABLET PO SCH (21:06)
[2020-11-30] MEDS: ASCORBIC ACID 500 MG TAB PO SCH (21:06)
[2020-11-30] MEDS: TAMSULOSIN 0.4 MG CAP.ER.24H PO SCH (21:07)
[2020-11-30] MEDS: ATORVASTATIN 20 MG TAB PO SCH (21:07)
[2020-11-30] MEDS: MORPHINE SULFATE ER 15 MG TABLET PO SCH (21:07)
[2020-12-01] MEDS: GABAPENTIN 100 MG CAP PO SCH ×3 (05:40→21:18)
[2020-12-01] MEDS: IPRATROPIUM-ALBUTEROL 3 ML NEB INHALATION SCH ×4 (07:13→21:45)
[2020-12-01 08:17] LABS: ALT 10 U/L (4-34); AST 15 U/L (14-36); African American GFR (CKD) >90 (>60 ml/min/1.73 sqM); Albumin 2.9 g/dL (3.5-5.0); Albumin/Globulin Ratio 1.3; Alkaline Phosphatase 73 U/L (38-126); Anion Gap 7 mmol/L; Blood Urea Nitrogen 18 mg/dL (7-17); Calcium 8.9 mg/dL (8.4-10.2); Carbon Dioxide 27 mmol/L (22-30); Chloride 105 mmol/L (98-107); Globulin 2.3 g/dL; Glucose 101 mg/dL (74-99); Non-African American GFR(CKD) >90 (>60 ml/min/1.73 sqM); Potassium 3.6 mmol/L (3.5-5.1); Sodium 139 mmol/L (137-145); Total Bilirubin 0.4 mg/dL (0.2-1.3); Total Protein 5.2 g/dL (6.3-8.2)
[2020-12-01] MEDS: ENOXAPARIN 40 MG/0.4 ML SYRINGE SQ SCH (08:41)
[2020-12-01] MEDS: LINEZOLID 600 MG TAB PO SCH ×2 (08:41→21:18)
[2020-12-01] MEDS: predniSONE 10 MG TAB PO SCH (08:42)
[2020-12-01] MEDS: FAMOTIDINE 20 MG TAB PO SCH ×2 (08:42→21:18)
[2020-12-01] MEDS: MECLIZINE 12.5 MG TAB PO SCH ×3 (08:42→21:17)
[2020-12-01] MEDS: guaiFENesin 600 MG TABLET.ER PO SCH ×2 (08:42→21:18)
[2020-12-01] MEDS: METOPROLOL TARTRATE 12.5 MG TAB PO SCH ×2 (08:43→21:18)
[2020-12-01] MEDS: BENZONATATE 100 MG CAP PO SCH ×3 (08:43→21:18)
[2020-12-01] MEDS: NIFEdipine XL 30 MG TAB.ER.24 PO SCH ×2 (08:43→21:18)
[2020-12-01] MEDS: CHOLECALCIFEROL 25 MCG (1000 IU) TABLET PO SCH (08:43)
[2020-12-01] MEDS: MELOXICAM 7.5 MG TAB PO SCH (08:43)
[2020-12-01] MEDS: ASPIRIN 81 MG PO SCH (08:43)
--- NOTE | 2020-12-01 10:41 | P.PN ---
Subjective Progress Note Date: 12/01/20 Principal diagnosis: Acute hypoxemic respiratory failure secondary to bilateral pneumonia This is a 75-year-old female that is transferred down from [facility]. She lives up in the [facility] area. The patient was recently diagnosed with a urinary tract infection and pneumonia. She was also diagnosed with sepsis and placed on oxygen at 3 L. Typically she is not on oxygen therapy. The patient was transferred down to for further management and evaluation. Her complaints include primarily shortness of breath, and cough. She's not producing much or any phlegm. She denies any chest pain. She also denies any nausea, vomiting, or diarrhea. She denied any fever or chills. She did recently fall, and injured her back. Apparently there were no fractures noted. Currently, her chest x-ray showing diffuse bilateral infiltrates. Her primary care provider is Dr. Darcy Araujo. Chest x-ray showed bilateral infiltrates, right greater than left. Her COVID 19 testing was negative. Her white count was 8.1 down from 13.3, white count 10.3, hematocrit 34.1, and platelet count 314,000. Sodium was 139, potassium 5.1, chloride 107, CO2 24, anion gap 8, BUN 16, c reatinine 0.37. Her urine was yellow and cloudy with a specific gravity 1.037. Her leukocyte esterase test was moderately positive with 20 WBCs, and rare bacteria. Currently, she is on vancomycin and also Zosyn. Culture data including blood sampling, sputum, and urine are either pending or negative. Clinically, she was requiring 10 L high flow nasal cannula for saturations between 93-97%. She did not appear to have any significant distress. Progress note dated 11/22/2020. 75-year-old female that we saw yesterday in consultation. She was transferred down from [facility], with urinary tract infection and pneumonia. Currently, she is on 10 L high flow nasal O2. Today, she complains mostly of nasal congestion and stuffiness. We recommended some Flonase nasal spray for that. In addition, because of her diffuse bilateral infiltrates, we went ahead and ordered a CT angiogram. Her white count is 12.3, hemoglobin 9.5, hematocrit 34.4, and platelet count 313,000. Sodium is 144, potassium 4.3, chlorides 110, CO2 26, anion gap 8, BUN and creatinine of 20 and 0.5. Her urinalysis from yesterday shows a urine to be yellow and cloudy, with moderate positive leukocyte esterase, 20 WBCs, and rare bacteria. Coronavirus testing was negative although she did have COVID 19 in the past. Current temperature is 98.1, heart rate 80, respiratory rate 16, blood pressure 107/66, with a mean of 79, and saturations are 93% 10 L high flow nasal O2. Patient is seen today 11/23/2020 in follow-up on the regular medical floor. She is currently sitting up in a chair at the bedside. Awake and alert in no acute distress. Maintaining O2 saturations up to 100% on 15 L nonrebreather mask. She's afebrile. Tachycardic. White count 14.6. Hemoglobin 10.0. Sodium 141. Potassium 4.1. Creatinine 0.5. She remains on bronchodilators, insulin. Antibiotics in the form of Zosyn. The patient is seen today 11/24/2020 in follow-up on the regular medical floor. She is currently sitting up in bed. Breathing a bit easier today compared to yesterday. Still requiring 10 L high flow nasal cannula. Urine culture revealed no growth. White count 11.0. Hemoglobin 9.7. Sodium 139. Potassium 3.8. Creatinine 0.4. Remains on bronchodilators, prednisone. Antibiotics in the form of Zosyn. The patient is seen today 11/25/2020 in follow-up on the regular medical floor. She is currently resting comfortably in bed. Breathing easier today compared to yesterday. Currently on 8 L high flow nasal cannula. She's afebrile. Hemodynamically stable. White count 9.6. Hemoglobin 10.1. Sodium 138. Potassium 4.1. Creatinine 0.39. She remains on DuoNeb inhalations, prednisone. Lovenox for DVT prophylaxis. Antibiotics in the form of Zosyn. Urine culture revealed no growth. On today's evaluation of 11/28/2020 the patient remains on 6 L of oxygen by nasal cannula. Chest x-ray was done yesterday and showed persistent bilateral areas of acute infiltration/chronic infiltration and she does have baseline cardiomegaly and baseline ILD related to her systemic sclerosis. Noted the patient's older CAT scan of the chest also showed chronic ILD consistent with interstitial lung disease from connective tissue disease disorder. For now, the sputum is also positive for MRSA and the patient is currently on vancomycin. She is weak. She is quite debilitated. Her most recent CAT scan of the chest that was done on 11/22/2020. Indicated the possibility of progression of the diffuse bilateral groundglass pulmonary opacities. There was no evidence of any pulmonary embolism. There was small to moderate-sized Lymph Nodes along with Some Mild Cardiomegaly and T12 Compression Fracture of the Spine with a 30% Height Loss. In Terms of Her Scleroderma and ILD, the Patient Remains on CellCept and She Has Also Completed a Prednisone Burst Taper. CellCept Is Being Given a Dose of 500 Mg by Mouth 3 Times A Day. On 11/29/2020 the patient is on oxygen and she is currently at 6 L per minute nasal cannula. No major change compared to yesterday. Overnight, she was stable and she did not have any new complaints. She is spending most of the time in bed. She remains on vancomycin regarding the MRSA that was cultured in the sputum. As mentioned earlier, she has ILD related to scleroderma and in addition she got infected with COVID 19 which ended up Attributing her res piratory failure and she developed ongoing persistent infiltrates and fibrotic changes in lung bases bilaterally following the Viral infection. No major swelling lower extremities. She is still on CellCept for now. She is also treated a prednisone burst taper. No altered mentation. The patient is seen today 11/30/2020 and follow-up on the regular medical floor. She is currently sitting up in a chair at the bedside. Awake and alert in no acute distress. Earlier this morning she had issues with desaturation on 6 L and required Ventimask placement. She is up to 95-99%. She'll be transitioned back to 6 L high flow nasal cannula. No worsening shortness of breath, cough or congestion. Chest x-ray continues to show persistent bilateral area areas of acute infiltration on background ILD and COPD. Possible ARDS. No significant improvement. Sputum culture from back on the was positive for MRSA and Lorrie. She remains on vancomycin. Continued on bronchodilators, prednisone t aper. Lovenox for DVT prophylaxis. Remains on CellCept for her scleroderma and ILD The patient is seen today 12/01/2020 in follow-up on the regular medical floor. She is currently sitting up at the bedside with physical therapy on standby. She is awake and alert in no acute distress. Currently on 6 L high flow nasal cannula. No worsening shortness of breath, cough or congestion. Still dyspneic with minimal conversation. Sputum culture was positive for MRSA and Lorrie. Sodium 139. Potassium 3.6. Creatinine 0.45. Currently on Zyvox. Remains on bronchodilators him a prednisone taper. Needs increased encouragement regarding nutrition and activity. Lovenox for DVT prophylaxis. Objective - Vital Signs Vital signs: Vital Signs Temp 97.9 F 12/01/20 08:00 Pulse 91 12/01/20 08:00 Resp 16 12/01/20 08:00 BP 110/77 12/01/20 08:00 Pulse Ox 92 L 12/01/20 08:00 Intake & Output 11/30/20 12/01/20 12/01/20 18:59 06:59 18:59 Output Total 300 Balance -300 Output: Urine 300 Other: Voiding Method Indwelling Catheter Indwelling Catheter - Exam GENERAL EXAM: Alert, 75-year-old male, cachectic female patient, on 6 L high flow nasal cannula. Comfortable in no apparent distress. HEAD: Normocephalic. EYES: Normal reaction of pupils, equal size. NOSE: Clear with pink turbinates. THROAT: No erythema or exudates. NECK: No masses, no JVD. CHEST: No chest wall deformity. LUNGS: Equal air entry with bilateral scattered rhonchi, diminished. CVS: S1 and S2 normal with no audible murmur, regular rhythm. ABDOMEN: No hepatosplenomegaly, normal bowel sounds, no guarding or rigidity. SPINE: No scoliosis or deformity SKIN: No rashes CENTRAL NERVOUS SYSTEM: No focal deficits, tone is normal in all 4 extremities. EXTREMITIES: There is no peripheral edema. No clubbing, no cyanosis. Peripheral pulses are intact. - Labs CBC & Chem 7: 11/28/20 06:54 12/01/20 06:40 Labs: Abnormal Lab Results - Last 24 Hours (Table) 11/30/20 12/01/20 Range/Units 07:54 06:40 BUN 18 H (7-17) mg/dL Creatinine 0.37 L 0.45 L (0.52-1.04) mg/dL Glucose 101 H (74-99) mg/dL Total Protein 5.2 L (6.3-8.2) g/dL Albumin 2.9 L (3.5-5.0) g/dL Assessment and Plan Assessment: 1 Acute hypoxemic respiratory failure secondary to bilateral pneumonia, currently on 6 L high flow nasal cannula. Patient has chronic ILD evident on previous CAT scan of the chest in 2014 2015. Subsequently, she got Covid 19 in July 2020 diffuse bilateral groundglass pulmonary infiltrates somewhat patchy and peripheral more so in the lower lobes. Follow-up CAT scan of the chest showed chronic fibrotic changes in both fibrotic and interstitial changes bilaterally from September 2020 and October 2020. 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 A superinfection with bacterial pneumonia is likely as the patient positive for MRSA and the patient is now on Zyvox. On today's evaluation of 12/01/2020, no change in the patient's condition and she is essentially stable compared to yesterday. 2 Urinary tract infection, rule out urosepsis. Chronic Panchal. 3 Prior history of COVID 19 pneumonitis. 4 Severe hypoxemic respiratory failure, rule out early acute respiratory distress syndrome (ARDS). 5 History of osteoarthritis. 6 History of pneumonia. 7 History of Raynaud's syndrome. 8 History of progressive systemic sclerosis (PSS). 9 History of varicose veins. 10 History of degenerative disc disease. 11 Lifelong nonsmoker. Plan: The patient was seen and evaluated by Dr. Woo Continue bronchodilators, prednisone, Zyvox Encouraged increased activity as tolerate Encouraged increase nutrition as tolerated Titrate down the FiO2 as tolerated Overall prognosis is poor DO NOT RESUSCITATE/DO NOT INTUBATE CODE STATUS Plan is for discharge to [facility] on the [place], the cosigning physician, performed a history & physical examination of the patient. Lungs sounds scattered rhonchi, diminished. Maintaining good O2 saturations in the 90s on 6 L high flow nasal cannula. I discussed the assessment and plan of care with my nurse practitioner, Marti Espinoza. I attest to the above note as dictated by her.
[2020-12-01] MEDS: HYDROcodone/APAP 10-325MG 1 EACH TAB PO PRN (15:01)
[2020-12-01 15:14] LABS: Basophils # (A) 0.07 X 10*3/uL (0.00-0.10); Basophils % (A) 0.6 %; Eosinophils # (A) 0.47 X 10*3/uL (0.04-0.35); Eosinophils % (A) 3.8 %; HCT 32.2 % (37.2-46.3); HGB 9.4 g/dL (12.0-15.0); Lymphocytes # (A) 1.57 X 10*3/uL (0.90-5.00); Lymphocytes % (A) 12.6 %; MCH 28.7 pg (27.0-32.0); MCHC 29.2 g/dL (32.0-37.0); MCV 98.2 fL (80.0-97.0); Mean Platelet Volume 9.7 fL (9.5-12.2); Monocytes # (A) 1.84 X 10*3/uL (0.20-1.00); Monocytes % (A) 14.8 %; Neutrophils # (A) 8.32 X 10*3/uL (1.80-7.70); Neutrophils % (A) 66.8 %; Platelet Count 437 X 10*3/uL (140-440); RBC 3.28 X 10*6/uL (4.10-5.20); RDW 15.8 % (11.5-14.5); WBC 12.44 X 10*3/uL (4.50-10.00)
[2020-12-01] MEDS: ATORVASTATIN 20 MG TAB PO SCH (21:18)
[2020-12-01] MEDS: MELATONIN 5 MG TABLET PO SCH (21:18)
[2020-12-01] MEDS: TAMSULOSIN 0.4 MG CAP.ER.24H PO SCH (21:18)
[2020-12-01] MEDS: ASCORBIC ACID 500 MG TAB PO SCH (21:18)
[2020-12-01] MEDS: MORPHINE SULFATE ER 15 MG TABLET PO SCH (21:19)
--- NOTE | 2020-12-01 23:34 | PN ---
PROGRESS NOTE DATE OF SERVICE: 12/01/2020 REASON FOR FOLLOWUP: MRSA pneumonia. INTERVAL HISTORY: Patient is currently afebrile. Patient is breathing comfortably. Patient denies having any chest pain or shortness of breath. Occasional cough. No abdominal pain. No diarrhea. PHYSICAL EXAMINATION: Blood pressure 123/73 with a pulse of 86. Temperature is 97.3. She is 99% on 6 L nasal cannula. General description is an elderly female lying in bed in no distress. Respiratory system: Unlabored breathing, decreased breath sounds. No wheeze. Heart S1, S2. Regular rate and rhythm. ABDOMEN: Soft, no tenderness. LAB DATA: Hemoglobin 9.4, white count 12.44 with creatinine 0.45. DIAGNOSTIC IMPRESSION AND PLAN: Patient admitted to hospital with pneumonia. Sputum has been finalized with MRSA. Patient is currently on Zyvox and the patient did not have any IV access. That will be continued to finish a 2 week course of therapy. White count slightly elevated and monitor closely. Continue supportive care. MMODL / IJN: [id number] /
[2020-12-02] MEDS: GABAPENTIN 100 MG CAP PO SCH ×3 (04:51→22:15)
[2020-12-02] MEDS: IPRATROPIUM-ALBUTEROL 3 ML NEB INHALATION SCH ×4 (07:19→19:24)
[2020-12-02] MEDS: ASPIRIN 81 MG PO SCH (08:42)
[2020-12-02] MEDS: FAMOTIDINE 20 MG TAB PO SCH ×2 (08:42→22:14)
[2020-12-02] MEDS: ENOXAPARIN 40 MG/0.4 ML SYRINGE SQ SCH (08:42)
[2020-12-02] MEDS: predniSONE 10 MG TAB PO SCH (08:42)
[2020-12-02] MEDS: METOPROLOL TARTRATE 12.5 MG TAB PO SCH ×2 (08:42→22:16)
[2020-12-02] MEDS: MELOXICAM 7.5 MG TAB PO SCH (08:42)
[2020-12-02] MEDS: MECLIZINE 12.5 MG TAB PO SCH ×3 (08:42→22:15)
[2020-12-02] MEDS: CHOLECALCIFEROL 25 MCG (1000 IU) TABLET PO SCH (08:42)
[2020-12-02] MEDS: BENZONATATE 100 MG CAP PO SCH ×3 (08:42→22:14)
[2020-12-02] MEDS: guaiFENesin 600 MG TABLET.ER PO SCH ×2 (08:42→22:16)
[2020-12-02] MEDS: LINEZOLID 600 MG TAB PO SCH ×2 (08:43→22:15)
[2020-12-02] MEDS: NIFEdipine XL 30 MG TAB.ER.24 PO SCH ×2 (08:43→22:16)
[2020-12-02] MEDS: LIDOCAINE 4% CREAM 5 GM TUBE TOPICAL PRN (08:44)
--- NOTE | 2020-12-02 10:20 | P.PN ---
Subjective Progress Note Date: 12/02/20 Claribel Ruiz, is a 75-year-old female, who presented to [facility] emergency room with back pain and shortness of breath, she states that she fell about 1 week ago, patient was evaluated at [facility], computed tomography scan of the thoracic spine and the lumbar spine was done and revealed evidence of old T12 vertebral fracture without any evidence for new vertebral fractures, computed tomography scan also revealed extensive bilateral pulmonary infiltrates with bilateral pleural effusions, patient also had evidence of urinary tract infection, she had leukocytosis suggestive of sepsis, she was transferred to [facility] emergency room and then admitted to medical floor for further evaluation and treatment. Patient had several recent admissions to [facility], her last discharge was on 10/22/2020, over the last few months patient had evidence of Covid 19 pneumonia, she also had rectal pain and rectal bleeding and had surgery for hemorrhoids with Dr. Alatorre, she has underlying history of scleroderma, Raynaud's disease, hypertension, history of hyperlipidemia, history of osteoarthritis, history of osteoporosis, history of gastroesophageal reflux disease, history of chronic pain syndrome maintained on narcotics, history of pressure ulcer of the left buttock stage II, history of urinary retention requiring Panchal catheter placement patient was evaluated by urology on previous admission. Patient was evaluated at [facility] emergency room, her vital examination on presentation revealed a temperature of 97.8 pulse 108 respiration 18 blood pressure 102/67 pulse ox 94% on 3 L nasal cannula, her white blood count was 13.3 hemoglobin 10.4 platelet count 311 BUN 19 creatinine 0.44 Li virus PCR was negative. On 11/21/2020 patient was seen and examined on the medical floor she is alert and oriented 3 in no apparent distress she is complaining of stools incontinence patient stated that she is constantly having liquid stool coming out of the rectum she is also complaining of chest tightness and shortness of breath and occasional cough otherwise she denies any complaints. At this point will check stools for C. diff, consultation for gastroenterology was initiated. On 11/22/2020 patient was seen and examined on the medical floor he no apparent distress, she is complaining of shortness of breath she is maintained on oxygen via nasal cannula. Currently at 8 L per minute she has occasional cough she is maintained on IV antibiotic she was evaluated by pulmonary 80 scan angiogram of the chest was ordered however patient refused to have it so far. Otherwise she denies any complaints at this time there is no fever or chills no headache or dizziness no chest pain no nausea or vomiting no abdominal pain no diarrhea no blood in the stools no burning with urination no frequency or urgency and no hematuria. On 11/23/2020 patient was seen and examined on the medical floor she is somnolent arousable answer a few questions and returns to sleep she is maintained on oxygen via nasal cannula currently she is on 6 L/m she denies any chest pain denies any abdominal pain no nausea or vomiting she still has shortness of breath especially with any activity she is having some cough without any sputum production she is still having some stool incontinence. On 11/24/2020 patient was seen and examined on the medical floor she is still complaining of severe shortness of breath she is complaining of cough without sputum production there is no fever or chills no headache or dizziness no chest pain no palpitation no nausea or vomiting no abdominal pain no diarrhea no blood in the stools no burning with urination no frequency or urgency and no hematuria On 11/25/2020 patient is currently resting in bed currently working with physical therapy. Does state mild improvement. White blood cell improving to 9.6. Patient remains on IV Zosyn. Patient denies chest pain. Patient denies nausea vomiting or diarrhea. Patient denies any urinary burning or frequency. On 11/26/2020 patient was seen and examined on the medical floor she is alert and oriented 3 in no apparent distress she is still complaining of shortness of breath with any activity she is still complaining of leakage in the stools otherwise she denies any complaints at this time there is no fever or chills no headache or dizziness no chest pain no nausea or vomiting no abdominal pain no blood in the stools no burning with urination no frequency or urgency and no hematuria On 11/27/2020 patient is alert and oriented 3. Patient requesting Panchal catheter to be attempted to be removed. Voiding trial okay to be initiated per nursing staff. Patient was evaluated by urology services. Patient is having some shortness of breath today patient is on high flow 8 L improved. Patient denies chest pain. Patient denies any nausea or vomiting. Patient denies any urinary burning or frequency. On 11/28/2020 patient was seen and examined on the medical floor she is alert and oriented 3 in no apparent distress she is still complaining of shortness of breath and is maintained on oxygen 6 L via nasal cannula she has occasional cough no chest pain no palpitation no nausea or vomiting no abdominal pain no diarrhea no blood in the stools, patient still has Panchal catheter, plan is to discontinue Panchal catheter tomorrow in a.m. and monitor if patient can void. Sputum culture was positive for MRSA patient is maintained on IV vancomycin at this time. On 11/29/2020 patient was seen and examined on the medical floor she is alert and oriented 3 in no apparent distress there is no fever or chills no headache or dizziness, she is still complaining of shortness of breath, she is maintained on oxygen 4 L via nasal cannula at this time she still has episodes of cough, no nausea or vomiting no abdominal pain no diarrhea no blood in the stools Panchal catheter was removed this a.m. patient has not voided yet, will monitor closely On 11/30/2020 patient is alert and oriented 3 resting comfortably in bed. Per nursing staff patient had episode of desaturation likely secondary to anxiety. Pulmonary services are following repeat chest x-ray ordered. At this time patient is resting comfortably in bed. Patient is now on high flow oxygen 12L On 12/01/2020. Patient's alert and oriented 3 currently working with physical therapy. Patient oxygen requirement down to 8 L high flow. Patient is still complaining of rectal pain due to hemorrhoids. We'll consult surgical services for further evaluation. Patient denies any chest pain. Patient denies nausea vomiting or diarrhea. Patient denies any urinary burning or frequency Objective - Vital Signs Vital signs: Vital Signs Temp 97.6 F 12/02/20 07:50 Pulse 83 12/02/20 07:50 Resp 20 12/02/20 07:50 BP 110/62 12/02/20 07:50 Pulse Ox 97 12/02/20 07:50 Intake & Output 12/01/20 12/02/20 12/02/20 18:59 06:59 18:59 Output Total 400 Balance -400 Output: Urine 400 Other: Voiding Method Indwelling Catheter Indwelling Catheter # Bowel Movements 1 - Exam In general patient is alert and oriented 3 in no apparent distress HEENT head normocephalic and atraumatic Neck is supple no JVD no goiter no lymphadenopathy Chest exam reveals a scattered crackles bilaterally no wheezing Cardiac exam reveals regular heart sounds S1 and S2 with 2/6 systolic murmur in the left sternal border Abdomen is soft nontender no organomegaly with normal bowel sounds Extremity exam reveals 1+ edema Neurological examination reveals no gross focal deficit - Labs CBC & Chem 7: 12/01/20 08:57 12/01/20 06:40 Labs: Abnormal Lab Results - Last 24 Hours (Table) 12/01/20 Range/Units 08:57 WBC 12.44 H (4.50-10.00) X 10*3/uL RBC 3.28 L (4.10-5.20) X 10*6/uL Hgb 9.4 L (12.0-15.0) g/dL Hct 32.2 L (37.2-46.3) % MCV 98.2 H (80.0-97.0) fL MCHC 29.2 L (32.0-37.0) g/dL RDW 15.8 H (11.5-14.5) % Absolute Nucleated RBC 0.02 H (0.00-0.00) X 10*3/uL Immature Gran # 0.17 H (0.00-0.04) X 10*3/uL Neutrophils # 8.32 H (1.80-7.70) X 10*3/uL Monocytes # 1.84 H (0.20-1.00) X 10*3/uL Eosinophils # 0.47 H (0.04-0.35) X 10*3/uL NRBC/100 WBC Diff 0.2 H (0.0-0.0) /100 WBCS Assessment and Plan Plan: 1. Bilateral pneumonia patient was evaluated at [facility] and transferred to [facility] she was started on IV antibiotics. She currently maintained on IV Zosyn. White blood cell improving. Pulmonary and infectious disease following. Sputum showing MRSA. Patient currently on Zyvox 2. Bilateral pleural effusion will recheck chest x-ray in a.m. 3. Acute on chronic hypoxic respiratory failure 4. Sepsis as evidenced by leukocytosis, tachycardia, patient received IV fluid boluses and currently she is maintained on IV antibiotics blood pressure is stable and will monitor closely . 5. Recent fall with back pain Will continue with current narcotic regimen and adjust as needed 6. Recent surgery for hemorrhoids, patient is still complaining of pain in the rectal area and stool incontinence, will check stools for C. diff 7. Urinary retention, patient was evaluated by urology on previous admission, she is still has a Panchal catheter, will consult urology again for evaluation. Per urology services trial void prior to discharge follow-up outpatient in 12 weeks 8. Evidence of urinary tract infection Will continue with current antibiotics awaiting urine and blood culture results 9. Underlying history of scleroderma 10. Underlying history of hypertension 11. Underlying history of hyperlipidemia 12. Underlying history of chronic pain syndrome maintained on narcotics 13. Underlying history of gastroesophageal reflux disease. 14. Underlying history of anxiety disorder. At this time patient is admitted to medical floor, she is started on IV antibiotics Home medications reviewed and reordered Check stools for C. diff, test was negative Pulmonary, GI services, infectious disease and urology services following Social work consult for possible rehab upon discharge PT OT consulted We'll consult surgical services for further evaluation in regards to rectal pain
--- NOTE | 2020-12-02 11:49 | P.PN ---
Subjective Progress Note Date: 12/02/20 Principal diagnosis: Acute hypoxemic respiratory failure secondary to bilateral pneumonia This is a 75-year-old female that is transferred down from [facility]. She lives up in the [facility] area. The patient was recently diagnosed with a urinary tract infection and pneumonia. She was also diagnosed with sepsis and placed on oxygen at 3 L. Typically she is not on oxygen therapy. The patient was transferred down to for further management and evaluation. Her complaints include primarily shortness of breath, and cough. She's not producing much or any phlegm. She denies any chest pain. She also denies any nausea, vomiting, or diarrhea. She denied any fever or chills. She did recently fall, and injured her back. Apparently there were no fractures noted. Currently, her chest x-ray showing diffuse bilateral infiltrates. Her primary care provider is Dr. Darcy Araujo. Chest x-ray showed bilateral infiltrates, right greater than left. Her COVID 19 testing was negative. Her white count was 8.1 down from 13.3, white count 10.3, hematocrit 34.1, and platelet count 314,000. Sodium was 139, potassium 5.1, chloride 107, CO2 24, anion gap 8, BUN 16, c reatinine 0.37. Her urine was yellow and cloudy with a specific gravity 1.037. Her leukocyte esterase test was moderately positive with 20 WBCs, and rare bacteria. Currently, she is on vancomycin and also Zosyn. Culture data including blood sampling, sputum, and urine are either pending or negative. Clinically, she was requiring 10 L high flow nasal cannula for saturations between 93-97%. She did not appear to have any significant distress. Progress note dated 11/22/2020. 75-year-old female that we saw yesterday in consultation. She was transferred down from [facility], with urinary tract infection and pneumonia. Currently, she is on 10 L high flow nasal O2. Today, she complains mostly of nasal congestion and stuffiness. We recommended some Flonase nasal spray for that. In addition, because of her diffuse bilateral infiltrates, we went ahead and ordered a CT angiogram. Her white count is 12.3, hemoglobin 9.5, hematocrit 34.4, and platelet count 313,000. Sodium is 144, potassium 4.3, chlorides 110, CO2 26, anion gap 8, BUN and creatinine of 20 and 0.5. Her urinalysis from yesterday shows a urine to be yellow and cloudy, with moderate positive leukocyte esterase, 20 WBCs, and rare bacteria. Coronavirus testing was negative although she did have COVID 19 in the past. Current temperature is 98.1, heart rate 80, respiratory rate 16, blood pressure 107/66, with a mean of 79, and saturations are 93% 10 L high flow nasal O2. Patient is seen today 11/23/2020 in follow-up on the regular medical floor. She is currently sitting up in a chair at the bedside. Awake and alert in no acute distress. Maintaining O2 saturations up to 100% on 15 L nonrebreather mask. She's afebrile. Tachycardic. White count 14.6. Hemoglobin 10.0. Sodium 141. Potassium 4.1. Creatinine 0.5. She remains on bronchodilators, insulin. Antibiotics in the form of Zosyn. The patient is seen today 11/24/2020 in follow-up on the regular medical floor. She is currently sitting up in bed. Breathing a bit easier today compared to yesterday. Still requiring 10 L high flow nasal cannula. Urine culture revealed no growth. White count 11.0. Hemoglobin 9.7. Sodium 139. Potassium 3.8. Creatinine 0.4. Remains on bronchodilators, prednisone. Antibiotics in the form of Zosyn. The patient is seen today 11/25/2020 in follow-up on the regular medical floor. She is currently resting comfortably in bed. Breathing easier today compared to yesterday. Currently on 8 L high flow nasal cannula. She's afebrile. Hemodynamically stable. White count 9.6. Hemoglobin 10.1. Sodium 138. Potassium 4.1. Creatinine 0.39. She remains on DuoNeb inhalations, prednisone. Lovenox for DVT prophylaxis. Antibiotics in the form of Zosyn. Urine culture revealed no growth. On today's evaluation of 11/28/2020 the patient remains on 6 L of oxygen by nasal cannula. Chest x-ray was done yesterday and showed persistent bilateral areas of acute infiltration/chronic infiltration and she does have baseline cardiomegaly and baseline ILD related to her systemic sclerosis. Noted the patient's older CAT scan of the chest also showed chronic ILD consistent with interstitial lung disease from connective tissue disease disorder. For now, the sputum is also positive for MRSA and the patient is currently on vancomycin. She is weak. She is quite debilitated. Her most recent CAT scan of the chest that was done on 11/22/2020. Indicated the possibility of progression of the diffuse bilateral groundglass pulmonary opacities. There was no evidence of any pulmonary embolism. There was small to moderate-sized Lymph Nodes along with Some Mild Cardiomegaly and T12 Compression Fracture of the Spine with a 30% Height Loss. In Terms of Her Scleroderma and ILD, the Patient Remains on CellCept and She Has Also Completed a Prednisone Burst Taper. CellCept Is Being Given a Dose of 500 Mg by Mouth 3 Times A Day. On 11/29/2020 the patient is on oxygen and she is currently at 6 L per minute nasal cannula. No major change compared to yesterday. Overnight, she was stable and she did not have any new complaints. She is spending most of the time in bed. She remains on vancomycin regarding the MRSA that was cultured in the sputum. As mentioned earlier, she has ILD related to scleroderma and in addition she got infected with COVID 19 which ended up Attributing her res piratory failure and she developed ongoing persistent infiltrates and fibrotic changes in lung bases bilaterally following the Viral infection. No major swelling lower extremities. She is still on CellCept for now. She is also treated a prednisone burst taper. No altered mentation. The patient is seen today 11/30/2020 and follow-up on the regular medical floor. She is currently sitting up in a chair at the bedside. Awake and alert in no acute distress. Earlier this morning she had issues with desaturation on 6 L and required Ventimask placement. She is up to 95-99%. She'll be transitioned back to 6 L high flow nasal cannula. No worsening shortness of breath, cough or congestion. Chest x-ray continues to show persistent bilateral area areas of acute infiltration on background ILD and COPD. Possible ARDS. No significant improvement. Sputum culture from back on the was positive for MRSA and Lorrie. She remains on vancomycin. Continued on bronchodilators, prednisone t aper. Lovenox for DVT prophylaxis. Remains on CellCept for her scleroderma and ILD The patient is seen today 12/01/2020 in follow-up on the regular medical floor. She is currently sitting up at the bedside with physical therapy on standby. She is awake and alert in no acute distress. Currently on 6 L high flow nasal cannula. No worsening shortness of breath, cough or congestion. Still dyspneic with minimal conversation. Sputum culture was positive for MRSA and Lorrie. Sodium 139. Potassium 3.6. Creatinine 0.45. Currently on Zyvox. Remains on bronchodilators him a prednisone taper. Needs increased encouragement regarding nutrition and activity. Lovenox for DVT prophylaxis. The patient is seen today 12/02/2020 in follow-up on the regular medical floor. She is currently sitting up in chair at the bedside, working with physical therapy. She is breathing easier today compared to yesterday. Currently on 8 L high flow nasal cannula. She remains on bronchodilators. Prednisone. Zyvox. Objective - Vital Signs Vital signs: Vital Signs Temp 97.6 F 12/02/20 07:50 Pulse 88 12/02/20 11:08 Resp 20 12/02/20 07:50 BP 110/62 12/02/20 07:50 Pulse Ox 97 12/02/20 07:50 Intake & Output 12/01/20 12/02/20 12/02/20 18:59 06:59 18:59 Output Total 400 Balance -400 Output: Urine 400 Other: Voiding Method Indwelling Catheter Indwelling Catheter Indwelling Catheter # Bowel Movements 1 - Exam GENERAL EXAM: Alert, 75-year-old male, cachectic female patient, on 8 L high flow nasal cannula. Comfortable in no apparent distress. HEAD: Normocephalic. EYES: Normal reaction of pupils, equal size. NOSE: Clear with pink turbinates. THROAT: No erythema or exudates. NECK: No masses, no JVD. CHEST: No chest wall deformity. LUNGS: Equal air entry with bilateral scattered rhonchi, diminished. CVS: S1 and S2 normal with no audible murmur, regular rhythm. ABDOMEN: No hepatosplenomegaly, normal bowel sounds, no guarding or rigidity. SPINE: No scoliosis or deformity SKIN: No rashes CENTRAL NERVOUS SYSTEM: No focal deficits, tone is normal in all 4 extremities. EXTREMITIES: There is no peripheral edema. No clubbing, no cyanosis. Peripheral pulses are intact. - Labs CBC & Chem 7: 12/01/20 08:57 12/01/20 06:40 Labs: Abnormal Lab Results - Last 24 Hours (Table) 12/01/20 Range/Units 08:57 WBC 12.44 H (4.50-10.00) X 10*3/uL RBC 3.28 L (4.10-5.20) X 10*6/uL Hgb 9.4 L (12.0-15.0) g/dL Hct 32.2 L (37.2-46.3) % MCV 98.2 H (80.0-97.0) fL MCHC 29.2 L (32.0-37.0) g/dL RDW 15.8 H (11.5-14.5) % Absolute Nucleated RBC 0.02 H (0.00-0.00) X 10*3/uL Immature Gran # 0.17 H (0.00-0.04) X 10*3/uL Neutrophils # 8.32 H (1.80-7.70) X 10*3/uL Monocytes # 1.84 H (0.20-1.00) X 10*3/uL Eosinophils # 0.47 H (0.04-0.35) X 10*3/uL NRBC/100 WBC Diff 0.2 H (0.0-0.0) /100 WBCS Assessment and Plan Assessment: 1 Acute hypoxemic respiratory failure secondary to bilateral pneumonia, currently on 8 L high flow nasal cannula. Patient has chronic ILD evident on previous CAT scan of the chest in 2014 2015. Subsequently, she got Covid 19 in July 2020 diffuse bilateral groundglass pulmonary infiltrates somewhat patchy and peripheral more so in the lower lobes. Follow-up CAT scan of the chest showed chronic fibrotic changes in both fibrotic and interstitial changes bilaterally from September 2020 and October 2020. 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 A superinfection with bacterial pneumonia is likely as the patient positive for MRSA and the patient is now on Zyvox. On today's evaluation of 12/01/2020, no change in the patient's condition and she is essentially stable compared to yesterday. 2 Urinary tract infection, rule out urosepsis. Chronic Panchal. 3 Prior history of COVID 19 pneumonitis. 4 Severe hypoxemic respiratory failure, rule out early acute respiratory distress syndrome (ARDS). 5 History of osteoarthritis. 6 History of pneumonia. 7 History of Raynaud's syndrome. 8 History of progressive systemic sclerosis (PSS). 9 History of varicose veins. 10 History of degenerative disc disease. 11 Lifelong nonsmoker. Plan: The patient was seen and evaluated by Dr. Woo Continue bronchodilators, prednisone, Zyvox Encouraged increased activity as tolerate Encouraged increase nutrition as tolerated Titrate down the FiO2 as tolerated Plan is for discharge to [facility] on the [facility], the cosigning physician, performed a history & physical examination of the patient. Lungs sounds scattered rhonchi, diminished. Maintaining good O2 saturations in the 90s on 8 L high flow nasal cannula. I discussed the assessment and plan of care with my nurse practitioner, Marti Espinoza. I attest to the above note as dictated by her.
[2020-12-02] MEDS ORDERED: IOPAMIDOL CONTRAST (ORAL USE) VIAL PO PRN ×2 (15:46→16:42)
--- NOTE | 2020-12-02 16:06 | P.GSCN ---
History of Present Illness Consult date: 12/02/20 History of present illness: CHIEF COMPLAINT: shortness of breath HISTORY OF PRESENT ILLNESS: this is a 75-year-old female with a known past medical history of scleroderma, Raynaud's, hypertension, hyperlipidemia, osteoarthritis, GERD and chronic pain syndrome. Patient has history of a thrombosed external hemorrhoid she underwent incision and drainage of that hemorrhoid on 10/07/[address] houston. Patient is currently hospitalized for pneumonia. Surgical consult was placed regarding rectal pain. Patient does have complaints of constipation. She is able to only have small BMs. She denies any fevers, chills or sweats. patient seen and examined with Dr. houston. PAST MEDICAL HISTORY: See list. PAST SURGICAL HISTORY: See list. MEDICATIONS: See list. ALLERGIES: See list. SOCIAL HISTORY: No illicit drug use. REVIEW OF SYSTEMS: CONSTITUTIONAL: Denies fever or chills. HEENT: Denies blurred vision, vision changes, or eye pain. Denies hemoptysis CARDIOVASCULAR: Denies chest pain or pressure. RESPIRATORY: No shortness of breath. GASTROINTESTINAL: See HPI for pertinent findings HEMATOLOGIC: Denies bleeding disorders. GENITOURINARY: Denies any blood in urine or increased urinary frequency. SKIN: Denies pruitis. Denies rash. PHYSICAL EXAM: VITAL SIGNS: Reviewed GENERAL: Well-developed in no acute distress. HEENT: No sclera icterus. Extraocular movements grossly intact. Moist buccal mucosa. Head is atraumatic, normocephalic. No nasal drainage. ABDOMEN: Soft. Nondistended. Nontender NEUROLOGIC: Alert and oriented. Cranial nerves II through XII grossly intact. LABORATORY DATA: WBC 12.4 for Hgb 9.4 creatinine 0.45 IMAGING: ASSESSMENT: 1. Rectal pain May be due to constipation 2. Constipation 3. history of thrombosed external hemorrhoid status post I&D on 10/07/2020 4. Pneumonia PLAN: -we'll order computed tomography scan of the abdomen and pelvis with oral and IV contrast for further evaluation of patient's pain -Colace and mag citrate has been ordered for constipation -continue supportive care -Further recommendations per CAT scan results Thank you for this consultation Physician Pharmacy Benefits Coordinator note has been reviewed by physician. Signing provider agrees with the documented findings, assessment, and plan of care. 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 Does NOT want to ever return there. Spouse was admitted to [facility] in [place] with [facility]. Pt last spoke to him 09/09 and currently doesnt know his status or whereabouts. Smoking Status: Never smoker Past Alcohol Use History: None Reported Past Drug Use History: None Reported - Past Family History Mother Family Medical History: Dementia, Hypertension Additional Family Medical History / Comment(s): Lived until 89 Father Family Medical History: COPD Additional Family Medical History / Comment(s): in his late 60's from emphysema Medications and Allergies Home Medications Medication Instructions Recorded Confirmed Type NIFEdipine [Nifedical Xl] 30 mg PO BID@0900,209906/28/15 11/20/20 History Cholecalciferol [Vitamin D3 (25 1,000 unit PO DAILY@0900 08/27/20 11/20/20 History Mcg = 1000 Iu)] Mycophenolate Mofetil [Cellcept] 500 mg PO TID@0500,1400,2200 08/27/20 11/20/20 History Celecoxib [CeleBREX] 200 mg PO BID@0900,2100 08/29/20 11/20/20 History Ascorbic Acid [Vitamin C] 1,000 mg PO HS@209909/11/20 11/20/20 History Gabapentin [Neurontin] 200 mg PO TID@0600,1400,2200 09/11/20 11/20/20 History Alendronate Sodium [Fosamax] 70 mg PO WE@0600 10/06/20 11/20/20 History Aspirin 81 mg PO DAILY@0900 10/06/20 11/20/20 History Famotidine [Pepcid] 20 mg PO BID@0900,2100 10/06/20 02/21/21 History Meclizine [Antivert] 12.5 mg PO TID@0900,1400,2200 10/06/20 11/20/20 History Sennosides-Docusate Sodium 1 tab PO DAILY PRN 10/06/20 11/20/20 History [Senokot-S] Acetaminophen Tab [Tylenol] 650 mg PO Q6HR PRN tab 10/22/20 11/20/20 Rx Magnesium Hydroxide [Milk of 7,200 mg PO DAILY PRN ml 10/22/20 11/20/20 Rx Magnesia Concentrate] bisacodyL [Dulcolax] 10 mg RECTAL DAILY PRN supp 10/22/20 11/20/20 Rx polyethylene glycoL 3350 [Miralax] 17 gm PO DAILY PRN powd.pack 10/22/20 Rx Atorvastatin [Lipitor] 20 mg PO HS@209911/20/20 11/20/20 History HYDROcodone/APAP 10-325MG [Brea 1 tab PO Q6H PRN 11/20/20 11/20/20 History 10-325] Melatonin 5 mg PO HS@209911/20/20 11/20/20 History Metoprolol Tartrate [Lopressor] 12.5 mg PO BID@0900,209911/20/20 11/20/20 Hist ory Morphine Sulfate ER [Ms Contin] 15 mg PO HS@209911/20/20 11/20/20 History Ondansetron [Zofran] 4 mg PO Q8H PRN 11/20/20 11/20/20 History Psyllium Husk 100% [Metamucil 6 gm PO DAILY@0900 11/20/20 11/20/20 History Packet] SILVER sulfADIAZINE CREAM 1 applic TOPICAL BID 11/20/20 11/20/20 History [Silvadene Cream] Tamsulosin HCl [Flomax] 0.4 mg PO HS@209911/20/20 11/20/20 History predniSONE 10 mg PO DAILY@0900 11/20/20 11/20/20 History Allergies Allergy/AdvReac Type Severity Reaction Status Date / Time clindamycin HCl Allergy Rash/Hives Verified 11/20/20 13:11 [From Cleocin] clindamycin palmitate HCl Allergy Rash/Hives Verified 11/20/20 13:11 [From Cleocin] clindamycin phosphate Allergy Rash/Hives Verified 11/20/20 13:11 [From Cleocin] latex Allergy Rash/Hives Verified 11/20/20 13:11 Surgical - Exam Vital Signs Temp Pulse Resp BP Pulse Ox 97.8 F 108 H 18 102/67 94 L 11/20/20 12:18 11/20/20 12:18 11/20/20 12:18 11/20/20 12:18 11/20/20 12:18 Results - Labs 12/01/20 08:57 12/01/20 06:40
[2020-12-02] MEDS ORDERED: MAGNESIUM CITRATE 296 ML BOTTLE PO ONE (16:30)
--- NOTE | 2020-12-02 17:40 | PN ---
PROGRESS NOTE DATE OF SERVICE: 12/02/2020 REASON FOR FOLLOWUP: Pneumonia MRSA. INTERVAL HISTORY: The patient is currently afebrile. The patient is breathing slightly comfortably. Denies having any chest pain. Occasional cough. No abdominal pain. Still complaining of discomfort to the pelvic area. PHYSICAL EXAMINATION: Blood pressure 104/65, pulse of 82. Temperature is 97.6. She is 98% on 6 L high-flow oxygen. General description is an elderly female lying in bed in no distress. Respiratory system: Unlabored breathing, decreased intensity in breath sounds. No wheeze. Heart S1, S2. Regular rate and rhythm. Abdomen soft. No tenderness. LABS: Hemoglobin 9.4, white count 12.44, BUN of 15, creatinine 0.45. DIAGNOSTIC IMPRESSION AND PLAN: Patient with MRSA pneumonia for which the patient is currently covered with Zyvox because of no IV access. Patient to continue Zyvox to finish her course of therapy. Continue supportive care. MMODL / IJN: [id number] /
--- NOTE | 2020-12-02 19:54 | CT ---
EXAMINATION TYPE: CT abdomen pelvis w con DATE OF EXAM: 12/02/2020 COMPARISON: None HISTORY: Generalized pain CT DLP: 693.2 mGycm Automated exposure control for dose reduction was used. CONTRAST: Performed with IV Contrast, patient injected with 100 mL of Isovue 300. Images obtained from the diaphragm to the floor the pelvis with IV contrast. There are small bilateral pleural effusions. There is moderate interstitial infiltrates in both lower lobes. Heart is enlarged. There is no pericardial effusion. There is small hiatal hernia. There are numerous calcified small gallstones. Liver shows no focal defect. The bile ducts are not di lated. Spleen is intact. There is no pancreatic mass. There is no adrenal mass. Kidneys show satisfactory contrast opacification. There is no hydronephrosi s. There is normal renal excretion. Ureters are not dilated. There is no sign of retroperitoneal milton opathy. There is Panchal catheter in the urinary bladder. Bladder is mostly empty. There is no inguinal hernia. There is significant rectal fecal impaction with rectum measuring 10 cm. There is retained fecal mate rial throughout the large bowel. There is mild presacral fluid. There is no free air. There is no mes enteric edema. The lumbar vertebra have normal alignment. There is biconcave 20% compression deformity of L1 vertebr al body. IMPRESSION: Extensive lower lobe pulmonary infiltrates are slightly improved compared to old chest CT scan 1 deanna h ago. Small pleural effusions unchanged. Significant constipation with rectal fecal impaction. L1 compression fracture unchanged compared to o ld exam.
[2020-12-02] MEDS: MORPHINE SULFATE ER 15 MG TABLET PO SCH (22:14)
[2020-12-02] MEDS: MELATONIN 5 MG TABLET PO SCH (22:15)
[2020-12-02] MEDS: DOCUSATE 100 MG CAP PO SCH (22:16)
[2020-12-02] MEDS: ATORVASTATIN 20 MG TAB PO SCH (22:16)
[2020-12-02] MEDS: ASCORBIC ACID 500 MG TAB PO SCH (22:16)
[2020-12-02] MEDS: TAMSULOSIN 0.4 MG CAP.ER.24H PO SCH (22:16)
[2020-12-03] MEDS: GABAPENTIN 100 MG CAP PO SCH ×4 (05:04→21:53)
[2020-12-03] MEDS: IPRATROPIUM-ALBUTEROL 3 ML NEB INHALATION SCH ×4 (07:03→20:33)
[2020-12-03] MEDS: FAMOTIDINE 20 MG TAB PO SCH ×2 (08:40→20:10)
[2020-12-03] MEDS: NIFEdipine XL 30 MG TAB.ER.24 PO SCH ×2 (08:40→20:12)
[2020-12-03] MEDS: DOCUSATE 100 MG CAP PO SCH ×2 (08:40→20:11)
[2020-12-03] MEDS: predniSONE 10 MG TAB PO SCH (08:40)
[2020-12-03] MEDS: ASPIRIN 81 MG PO SCH (08:40)
[2020-12-03] MEDS: METOPROLOL TARTRATE 12.5 MG TAB PO SCH ×2 (08:40→20:10)
[2020-12-03] MEDS: guaiFENesin 600 MG TABLET.ER PO SCH ×2 (08:40→20:11)
[2020-12-03] MEDS: LINEZOLID 600 MG TAB PO SCH ×2 (08:40→20:12)
[2020-12-03] MEDS: BENZONATATE 100 MG CAP PO SCH ×3 (08:42→21:53)
[2020-12-03] MEDS: MECLIZINE 12.5 MG TAB PO SCH ×3 (08:42→21:53)
[2020-12-03] MEDS: CHOLECALCIFEROL 25 MCG (1000 IU) TABLET PO SCH (08:42)
[2020-12-03] MEDS: MELOXICAM 7.5 MG TAB PO SCH (08:42)
[2020-12-03] MEDS: ENOXAPARIN 40 MG/0.4 ML SYRINGE SQ SCH (08:50)
[2020-12-03 09:00] LABS: ALT 10 U/L (4-34); AST 17 U/L (14-36); African American GFR (CKD) >90 (>60 ml/min/1.73 sqM); Albumin 3.2 g/dL (3.5-5.0); Albumin/Globulin Ratio 1.3; Alkaline Phosphatase 85 U/L (38-126); Anion Gap 8 mmol/L; Blood Urea Nitrogen 12 mg/dL (7-17); Calcium 9.2 mg/dL (8.4-10.2); Carbon Dioxide 26 mmol/L (22-30); Chloride 104 mmol/L (98-107); Globulin 2.4 g/dL; Glucose 85 mg/dL (74-99); Non-African American GFR(CKD) >90 (>60 ml/min/1.73 sqM); Sodium 138 mmol/L (137-145); Total Bilirubin 0.6 mg/dL (0.2-1.3); Total Protein 5.6 g/dL (6.3-8.2)
--- NOTE | 2020-12-03 11:27 | P.PN ---
Progress Note - Text Progress Note Date: 12/03/20 Patient has complaints of some rectal and pelvic pain. She had a bowel movement yesterday. Her CAT scan shows evidence fecal impaction. On exam vitals are stable her abdomen soft. Patient will be placed on GoLYTELY 2 L by mouth. Hopefully her constipation will improve.
--- NOTE | 2020-12-03 11:28 | P.PN ---
Subjective Progress Note Date: 12/03/20 This is a 75-year-old female that is transferred down from [facility]. She [place] up in the [place]. The patient was recently diagnosed with a urinary tract infection and pneumonia. She was also diagnosed with sepsis and placed on oxygen at 3 L. Typically she is not on oxygen therapy. The patient was transferred down to for further management and evaluation. Her complaints include primarily shortness of breath, and cough. She's not producing much or any phlegm. She denies any chest pain. She also denies any nausea, vomiting, or diarrhea. She denied any fever or chills. She did recently fall, and injured her back. Apparently there were no fractures noted. Currently, her chest x-ray showing diffuse bilateral infiltrates. Her primary care provider is Dr. Darcy Araujo. Chest x-ray showed bilateral infiltrates, right greater than left. Her COVID 19 testing was negative. Her white count was 8.1 down from 13.3, white count 10.3, hematocrit 34.1, and platelet count 314,000. Sodium was 139, potassium 5.1, chloride 107, CO2 24, anion gap 8, BUN 16, creatinine 0.37. Her urine was yellow and cloudy with a specific gravity 1.037. Her leukocyte esterase test was moderately positive with 20 WBCs, and rare bacteria. Currently, she is on vancomycin and also Zosyn. Culture data including blood sampling, sputum, and urine are either pending or negative. Clinically, she was requiring 10 L high flow nasal cannula for saturations between 93-97%. She did not appear to have any significant distress. Progress note dated 11/22/2020. 75-year-old female that we saw yesterday in consultation. She was transferred down from [facility], with urinary tract infection and pneumonia. Currently, she is on 10 L high flow nasal O2. Today, she complains mostly of nasal congestion and stuffiness. We recommended some Flonase nasal spray for that. In addition, because of her diffuse bilateral infiltrates, we went ahead and ordered a CT angiogram. Her white count is 12.3, hemoglobin 9.5, hematocrit 34.4, and platelet count 313,000. Sodium is 144, potassium 4.3, chlorides 110, CO2 26, anion gap 8, BUN and creatinine of 20 and 0.5. Her urinalysis from yesterday shows a urine to be yellow and cloudy, with moderate positive leukocyte esterase, 20 WBCs, and rare bacteria. Coronavirus testing was negative although she did have COVID 19 in the past. Current temperature is 98.1, heart rate 80, respiratory rate 16, blood pressure 107/66, with a mean of 79, and saturations are 93% 10 L high flow nasal O2. Patient is seen today 11/23/2020 in follow-up on the regular medical floor. She is currently sitting up in a chair at the bedside. Awake and alert in no acute distress. Maintaining O2 saturations up to 100% on 15 L nonrebreather mask. She's afebrile. Tachycardic. White count 14.6. Hemoglobin 10.0. Sodium 141. Potassium 4.1. Creatinine 0.5. She remains on bronchodilators, insulin. Antibiotics in the form of Zosyn. The patient is seen today 11/24/2020 in follow-up on the regular medical floor. She is currently sitting up in bed. Breathing a bit easier today compared to yesterday. Still requiring 10 L high flow nasal cannula. Urine culture revealed no growth. White count 11.0. Hemoglobin 9.7. Sodium 139. Potassium 3.8. Creatinine 0.4. Remains on bronchodilators, prednisone. Antibiotics in the form of Zosyn. The patient is seen today 11/25/2020 in follow-up on the regular medical floor. She is currently resting comfortably in bed. Breathing easier today compared to yesterday. Currently on 8 L high flow nasal cannula. She's afebrile. Hemodynamically stable. White count 9.6. Hemoglobin 10.1. Sodium 138. Potassium 4.1. Creatinine 0.39. She remains on DuoNeb inhalations, prednisone. Lovenox for DVT prophylaxis. Antibiotics in the form of Zosyn. Urine culture revealed no growth. On today's evaluation of 11/28/2020 the patient remains on 6 L of oxygen by nasal cannula. Chest x-ray was done yesterday and showed persistent bilateral areas of acute infiltration/chronic infiltration and she does have baseline cardiomegaly and baseline ILD related to her systemic sclerosis. Noted the patient's older CAT scan of the chest also showed chronic ILD consistent with interstitial lung disease from connective tissue disease disorder. For now, the sputum is also positive for MRSA and the patient is currently on vancomycin. She is weak. She is quite debilitated. Her most recent CAT scan of the chest that was done on 11/22/2020. Indicated the possibility of progression of the diffuse bilateral groundglass pulmonary opacities. There was no evidence of any pulmonary embolism. There was small to moderate-sized Lymph Nodes along with Some Mild Cardiomegaly and T12 Compression Fracture of the Spine with a 30% Height Loss. In Terms of Her Scleroderma and ILD, the Patient Remains on Cell Cept and She Has Also Completed a Prednisone Burst Taper. CellCept Is Being Given a Dose of 500 Mg by Mouth 3 Times A Day. On 11/29/2020 the patient is on oxygen and she is currently at 6 L per minute nasal cannula. No major change compared to yesterday. Overnight, she was stable and she did not have any new complaints. She is spending most of the time in bed. She remains on vancomycin regarding the MRSA that was cultured in the sputum. As mentioned earlier, she has ILD related to scleroderma and in addition she got infected with COVID 19 which ended up Attributing her respiratory failure and she developed ongoing persistent infiltrates and fibrotic changes in lung bases bilaterally following the Viral infection. No major swelling lower extremities. She is still on CellCept for now. She is also treated a prednisone burst taper. No altered mentation. The patient is seen today 11/30/2020 and follow-up on the regular medical floor. She is currently sitting up in a chair at the bedside. Awake and alert in no acute distress. Earlier this morning she had issues with desaturation on 6 L and required Ventimask placement. She is up to 95-99%. She'll be transitioned back to 6 L high flow nasal cannula. No worsening shortness of breath, cough or congestion. Chest x-ray continues to show persistent bilateral area areas of acute infiltration on background ILD and COPD. Possible ARDS. No significant improvement. Sputum culture from back on the was positive for MRSA and Lorrie. She remains on vancomycin. Continued on bronchodilators, prednisone taper. Lovenox for DVT prophylaxis. Remains on CellCept for her scleroderma and ILD The patient is seen today 12/01/2020 in follow-up on the regular medical floor. She is currently sitting up at the bedside with physical therapy on standby. She is awake and alert in no acute distress. Currently on 6 L high flow nasal cannula. No worsening shortness of breath, cough or congestion. Still dyspneic with minimal conversation. Sputum culture was positive for MRSA and Lorrie. Sodium 139. Potassium 3.6. Creatinine 0.45. Currently on Zyvox. Remains on bronchodilators him a prednisone taper. Needs increased encouragement regarding nutrition and activity. Lovenox for DVT prophylaxis. The patient is seen today 12/02/2020 in follow-up on the regular medical floor. She is currently sitting up in chair at the bedside, working with physical therapy. She is breathing easier today compared to yesterday. Currently on 8 L high flow nasal cannula. She remains on bronchodilators. Prednisone. Zyvox. 12/03/2020 I'm seeing the patient for a follow-up. The patient is on oxygen she is currently on 7 L of oxygen by nasal cannula with a pulse of 77%. She is afebrile. No new complaints patient is working with physical therapy. She is trying to advance her diet. she is undergoing a CAT scan of the abdomen that showed rectal fecal impaction underwent L1 compression fractures and small bilateral pleural effusions. The pulmonary infiltrates in the lung bases have improved ankle inversion and there was moderate interstitial infiltrates involving the lung bases bilaterally along with a small hiatal hernia. No other issues for now. Objective - Vital Signs Vital signs: Vital Signs Temp 98.6 F 12/03/20 08:28 Pulse 74 12/03/20 10:59 Resp 20 12/03/20 08:28 BP 117/69 12/03/20 08:28 Pulse Ox 97 12/03/20 08:28 Intake & Output 12/02/20 12/03/20 12/03/20 18:59 06:59 18:59 Intake Total 222 Output Total 800 600 Balance -800 -378 Intake: Oral 222 Output: Urine 800 600 Other: Voiding Method Indwelling Catheter Indwelling Catheter # Bowel Movements 2 1 1 - Exam GENERAL EXAM: Alert, 75-year-old female patient, on 6 L high flow nasal cannula. Comfortable in no apparent distress. HEAD: Normocephalic. EYES: Normal reaction of pupils, equal size. NOSE: Clear with pink turbinates. THROAT: No erythema or exudates. NECK: No masses, no JVD. CHEST: No chest wall deformity. LUNGS: Equal air entry with bilateral scattered rhonchi, diminished. CVS: S1 and S2 normal with no audible murmur, regular rhythm. ABDOMEN: No hepatosplenomegaly, normal bowel sounds, no guarding or rigidity. SPINE: No scoliosis or deformity SKIN: No rashes CENTRAL NERVOUS SYSTEM: No focal deficits, tone is normal in all 4 extremities. EXTREMITIES: There is no peripheral edema. No clubbing, no cyanosis. Peripheral pulses are intact. - Labs CBC & Chem 7: 12/01/20 08:57 12/03/20 07:52 Labs: Abnormal Lab Results - Last 24 Hours (Table) 12/03/20 Range/Units 07:52 Creatinine 0.41 L (0.52-1.04) mg/dL Total Protein 5.6 L (6.3-8.2) g/dL Albumin 3.2 L (3.5-5.0) g/dL Assessment and Plan Plan: 1 Acute hypoxemic respiratory failure secondary to bilateral pneumonia, currently on 6 L high flow nasal cannula. Patient has chronic ILD evident on previous CAT scan of the chest in 2014 2015. Subsequently, she got Covid 19 in July 2020 diffuse bilateral groundglass pulmonary infiltrates somewhat patchy and peripheral more so in the lower lobes. Follow-up CAT scan of the chest showed chronic fibrotic changes in both fibrotic and interstitial changes bilaterally from September 2020 and October 2020. 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 A s uperinfection with bacterial pneumonia is likely as the patient positive for MRSA and the patient is still on vancomycin. On 7 L of oxygen by nasal cannula the patient is currently on Zyvox. The follow-up CAT scan of the abdomen shows some limited improvement in the interstitial infiltrates in lung bases bilaterally. She is currently on vancomycin. She is quite debilitated and this is a very slow process in terms of recovery. 2 Urinary tract infection, rule out urosepsis. Chronic Panchal. 3 Prior history of COVID 19 pneumonitis. 4 Severe hypoxemic respiratory failure, rule out early acute respiratory distress syndrome (ARDS). 5 History of osteoarthritis. 6 History of pneumonia. 7 History of Raynaud's syndrome. 8 History of progressive systemic sclerosis (PSS). 9 History of varicose veins. 10 History of degenerative disc disease. 11 Lifelong nonsmoker. 12 rectal fecal impaction Plan: We will continue the current treatment plan for now continue treatment of MRSA in the sputum/MRSA superinfection with Zyvox. The patient also has a post covert chronic interstitial lung. Lung bases bilaterally and she is oxygen dependent. Achromycin has been discontinued Continue CellCept Prednisone as a wind down to 10 mg by mouth daily Titrate down the FiO2 as tolerated, currently on 7 L oxygen by nasal cannula unable to take out the Panchal because of chronic urinary retention The patient was seen by general surgery and the patient will be given GoLYTELY for her rectal fecal impaction Plan is for discharge to [facility] the [place]/ F We will see as needed
[2020-12-03] MEDS ORDERED: PEG 3350-NA SULF,BICARB,CL/KCL 4,000 ML BOTTLE PO ONE (12:00)
--- NOTE | 2020-12-03 13:46 | P.PN ---
Subjective Progress Note Date: 12/03/20 Claribel Ruiz, is a 75-year-old female, who presented to [facility] emergency room with back pain and shortness of breath, she states that she fell about 1 week ago, patient was evaluated at [facility], computed tomography scan of the thoracic spine and the lumbar spine was done and revealed evidence of old T12 vertebral fracture without any evidence for new vertebral fractures, computed tomography scan also revealed extensive bilateral pulmonary infiltrates with bilateral pleural effusions, patient also had evidence of urinary tract infection, she had leukocytosis suggestive of sepsis, she was transferred to [facility] emergency room and then admitted to medical floor for further evaluation and treatment. Patient had several recent admissions to [facility], her last discharge was on 10/22/2020, over the last few months patient had evidence of Covid 19 pneumonia, she also had rectal pain and rectal bleeding and had surgery for hemorrhoids with Dr. Alatorre, she has underlying history of scleroderma, Raynaud's disease, hypertension, history of hyperlipidemia, history of osteoarthritis, history of osteoporosis, history of gastroesophageal reflux disease, history of chronic pain syndrome maintained on narcotics, history of pressure ulcer of the left buttock stage II, history of urinary retention requiring Panchal catheter placement patient was evaluated by urology on previous admission. Patient was evaluated at [facility] emergency room, her vital examination on presentation revealed a temperature of 97.8 pulse 108 respiration 18 blood pressure 102/67 pulse ox 94% on 3 L nasal cannula, her white blood count was 13.3 hemoglobin 10.4 platelet count 311 BUN 19 creatinine 0.44 Li virus PCR was negative. On 11/21/2020 patient was seen and examined on the medical floor she is alert and oriented 3 in no apparent distress she is complaining of stools incontinence patient stated that she is constantly having liquid stool coming out of the rectum she is also complaining of chest tightness and shortness of breath and occasional cough otherwise she denies any complaints. At this point will check stools for C. diff, consultation for gastroenterology was initiated. On 11/22/2020 patient was seen and examined on the medical floor he no apparent distress, she is complaining of shortness of breath she is maintained on oxygen via nasal cannula. Currently at 8 L per minute she has occasional cough she is maintained on IV antibiotic she was evaluated by pulmonary 80 scan angiogram of the chest was ordered however patient refused to have it so far. Otherwise she denies any complaints at this time there is no fever or chills no headache or dizziness no chest pain no nausea or vomiting no abdominal pain no diarrhea no blood in the stools no burning with urination no frequency or urgency and no hematuria. On 11/23/2020 patient was seen and examined on the medical floor she is somnolent arousable answer a few questions and returns to sleep she is maintained on oxygen via nasal cannula currently she is on 6 L/m she denies any chest pain denies any abdominal pain no nausea or vomiting she still has shortness of breath especially with any activity she is having some cough without any sputum production she is still having some stool incontinence. On 11/24/2020 patient was seen and examined on the medical floor she is still complaining of severe shortness of breath she is complaining of cough without sputum production there is no fever or chills no headache or dizziness no chest pain no palpitation no nausea or vomiting no abdominal pain no diarrhea no blood in the stools no burning with urination no frequency or urgency and no hematuria On 11/25/2020 patient is currently resting in bed currently working with physical therapy. Does state mild improvement. White blood cell improving to 9.6. Patient remains on IV Zosyn. Patient denies chest pain. Patient denies nausea vomiting or diarrhea. Patient denies any urinary burning or frequency. On 11/26/2020 patient was seen and examined on the medical floor she is alert and oriented 3 in no apparent distress she is still complaining of shortness of breath with any activity she is still complaining of leakage in the stools otherwise she denies any complaints at this time there is no fever or chills no headache or dizziness no chest pain no nausea or vomiting no abdominal pain no blood in the stools no burning with urination no frequency or urgency and no hematuria On 11/27/2020 patient is alert and oriented 3. Patient requesting Panchal catheter to be attempted to be removed. Voiding trial okay to be initiated per nursing staff. Patient was evaluated by urology services. Patient is having some shortness of breath today patient is on high flow 8 L improved. Patient denies chest pain. Patient denies any nausea or vomiting. Patient denies any urinary burning or frequency. On 11/28/2020 patient was seen and examined on the medical floor she is alert and oriented 3 in no apparent distress she is still complaining of shortness of breath and is maintained on oxygen 6 L via nasal cannula she has occasional cough no chest pain no palpitation no nausea or vomiting no abdominal pain no diarrhea no blood in the stools, patient still has Panchal catheter, plan is to discontinue Panchal catheter tomorrow in a.m. and monitor if patient can void. Sputum culture was positive for MRSA patient is maintained on IV vancomycin at this time. On 11/29/2020 patient was seen and examined on the medical floor she is alert and oriented 3 in no apparent distress there is no fever or chills no headache or dizziness, she is still complaining of shortness of breath, she is maintained on oxygen 4 L via nasal cannula at this time she still has episodes of cough, no nausea or vomiting no abdominal pain no diarrhea no blood in the stools Panchal catheter was removed this a.m. patient has not voided yet, will monitor closely On 11/30/2020 patient is alert and oriented 3 resting comfortably in bed. Per nursing staff patient had episode of desaturation likely secondary to anxiety. Pulmonary services are following repeat chest x-ray ordered. At this time patient is resting comfortably in bed. Patient is now on high flow oxygen 12L On 12/01/2020. Patient's alert and oriented 3 currently working with physical therapy. Patient oxygen requirement down to 8 L high flow. Patient is still complaining of rectal pain due to hemorrhoids. We'll consult surgical services for further evaluation. Patient denies any chest pain. Patient denies nausea vomiting or diarrhea. Patient denies any urinary burning or frequency. On 12/02/2020 patient was seen and examined on the medical floor she is alert and oriented 3 in no apparent distress she is complaining of rectal pain and lower abdominal pain surgery was consulted again and computed tomography scan of the abdomen and pelvis was ordered otherwise patient is feeling better her shortness of breath and cough has improved somewhat she is maintained on oxygen at 7 L via nasal cannula there is no fever or chills no headache or dizziness no chest pain she still has shortness of breath and cough no nausea or vomiting no diarrhea no blood in the stools no urinary symptoms Panchal catheter is in patient failed trial of discontinuing Panchal catheter due to urinary retention. On 12/03/2020 patient was seen and examined on the medical floor she is alert and oriented 3 in no apparent distress computed tomography scan of the abdomen and pelvis revealed evidence of constipation with fecal impaction patient was evaluated again by surgery and call likely was ordered otherwise patient is complaining of cough and shortness of breath otherwise no complaints, there is n o fever or chills no headache or dizziness no chest pain no shortness of breath no cough no nausea or vomiting no abdominal pain no diarrhea and no urinary symptoms Objective - Vital Signs Vital signs: Vital Signs Temp 98.2 F 12/03/20 01:06 Pulse 74 12/03/20 01:06 Resp 15 12/03/20 01:06 BP 113/70 12/03/20 01:06 Pulse Ox 95 12/03/20 01:06 Intake & Output 12/02/20 12/02/20 12/03/20 06:59 18:59 06:59 Intake Total 222 Output Total 800 600 Balance -800 -378 Intake: Oral 222 Output: Urine 800 600 Other: Voiding Method Indwelling Catheter Indwelling Catheter Indwelling Catheter # Bowel Movements 1 2 1 - Exam In general patient is alert and oriented 3 in no apparent distress HEENT head normocephalic and atraumatic Neck is supple no JVD no goiter no lymphadenopathy Chest exam reveals a scattered crackles bilaterally no wheezing Cardiac exam reveals regular heart sounds S1 and S2 with 2/6 systolic murmur in the left sternal border Abdomen is soft nontender no organomegaly with normal bowel sounds Extremity exam reveals 1+ edema Neurological examination reveals no gross focal deficit - Labs CBC & Chem 7: 12/01/20 08:57 12/03/20 07:52 Assessment and Plan Plan: 1. Bilateral pneumonia patient was evaluated at [facility] and transferred to [facility] she was started on IV antibiotics. She currently maintained on IV Zosyn. White blood cell improving. Pulmonary and infectious disease following. Sputum showing MRSA. Patient currently on Zyvox 2. Bilateral pleural effusion will recheck chest x-ray in a.m. 3. Acute on chronic hypoxic respiratory failure 4. Sepsis as evidenced by leukocytosis, tachycardia, patient received IV fluid boluses and currently she is maintained on IV antibiotics blood pressure is stable and will monitor closely . 5. Recent fall with back pain Will continue with current narcotic regimen and adjust as needed 6. Recent surgery for hemorrhoids, patient is still complaining of pain in the rectal area and stool incontinence, will check stools for C. diff 7. Urinary retention, patient was evaluated by urology on previous admission, she is still has a Panchal catheter, will consult urology again for evaluation. Per urology services trial void prior to discharge follow-up outpatient in 12 weeks 8. Evidence of urinary tract infection Will continue with current antibiotics awaiting urine and blood culture results 9. Underlying history of scleroderma 10. Underlying history of hypertension 11. Underlying history of hyperlipidemia 12. Underlying history of chronic pain syndrome maintained on narcotics 13. Underlying history of gastroesophageal reflux disease. 14. Underlying history of anxiety disorder. At this time patient is admitted to medical floor, she is started on IV antibiotics Home medications reviewed and reordered Check stools for C. diff, test was negative Pulmonary, GI services, infectious disease and urology services following Social work consult for possible rehab upon discharge PT OT consulted We'll consult surgical services for further evaluation in regards to rectal pain
[2020-12-03 17:22] LABS: Basophils # (A) 0.04 X 10*3/uL (0.00-0.10); Basophils % (A) 0.4 %; Eosinophils # (A) 0.69 X 10*3/uL (0.04-0.35); Eosinophils % (A) 6.3 %; HCT 34.1 % (37.2-46.3); HGB 9.7 g/dL (12.0-15.0); Lymphocytes # (A) 0.95 X 10*3/uL (0.90-5.00); Lymphocytes % (A) 8.6 %; MCH 28.8 pg (27.0-32.0); MCHC 28.4 g/dL (32.0-37.0); MCV 101.2 fL (80.0-97.0); Mean Platelet Volume 10.1 fL (9.5-12.2); Monocytes # (A) 0.64 X 10*3/uL (0.20-1.00); Monocytes % (A) 5.8 %; Neutrophils # (A) 8.63 X 10*3/uL (1.80-7.70); Neutrophils % (A) 78.2 %; Platelet Count 470 X 10*3/uL (140-440); RBC 3.37 X 10*6/uL (4.10-5.20); RDW 15.7 % (11.5-14.5); WBC 11.03 X 10*3/uL (4.50-10.00)
[2020-12-03] MEDS: ASCORBIC ACID 500 MG TAB PO SCH (20:10)
[2020-12-03] MEDS: MORPHINE SULFATE ER 15 MG TABLET PO SCH (20:11)
[2020-12-03] MEDS: TAMSULOSIN 0.4 MG CAP.ER.24H PO SCH (20:11)
[2020-12-03] MEDS: ATORVASTATIN 20 MG TAB PO SCH (20:11)
[2020-12-03] MEDS: MELATONIN 5 MG TABLET PO SCH (20:11)
[2020-12-04] MEDS: GABAPENTIN 100 MG CAP PO SCH ×3 (05:46→21:22)
[2020-12-04] MEDS: IPRATROPIUM-ALBUTEROL 3 ML NEB INHALATION SCH ×4 (07:22→19:24)
[2020-12-04] MEDS: ENOXAPARIN 40 MG/0.4 ML SYRINGE SQ SCH (09:28)
[2020-12-04] MEDS: MELOXICAM 7.5 MG TAB PO SCH (09:29)
[2020-12-04] MEDS: LINEZOLID 600 MG TAB PO SCH ×2 (09:29→21:23)
[2020-12-04] MEDS: NIFEdipine XL 30 MG TAB.ER.24 PO SCH ×2 (09:29→21:23)
[2020-12-04] MEDS: guaiFENesin 600 MG TABLET.ER PO SCH ×2 (09:29→21:22)
[2020-12-04] MEDS: CHOLECALCIFEROL 25 MCG (1000 IU) TABLET PO SCH (09:29)
[2020-12-04] MEDS: DOCUSATE 100 MG CAP PO SCH ×2 (09:29→21:22)
[2020-12-04] MEDS: predniSONE 10 MG TAB PO SCH (09:29)
[2020-12-04] MEDS: FAMOTIDINE 20 MG TAB PO SCH ×2 (09:29→21:22)
[2020-12-04] MEDS: METOPROLOL TARTRATE 12.5 MG TAB PO SCH ×2 (09:29→21:22)
[2020-12-04] MEDS: BENZONATATE 100 MG CAP PO SCH ×3 (09:29→21:22)
[2020-12-04] MEDS: MECLIZINE 12.5 MG TAB PO SCH ×3 (09:29→21:24)
[2020-12-04] MEDS: ASPIRIN 81 MG PO SCH (09:29)
--- NOTE | 2020-12-04 10:07 | P.PN ---
Subjective Progress Note Date: 12/04/20 Claribel Ruiz, is a 75-year-old female, who presented to [facility] emergency room with back pain and shortness of breath, she states that she fell about 1 week ago, patient was evaluated at [facility], computed tomography scan of the thoracic spine and the lumbar spine was done and revealed evidence of old T12 vertebral fracture without any evidence for new vertebral fractures, computed tomography scan also revealed extensive bilateral pulmonary infiltrates with bilateral pleural effusions, patient also had evidence of urinary tract infection, she had leukocytosis suggestive of sepsis, she was transferred to [facility] emergency room and then admitted to medical floor for further evaluation and treatment. Patient had several recent admissions to [facility], her last discharge was on 10/22/2020, over the last few months patient had evidence of Covid 19 pneumonia, she also had rectal pain and rectal bleeding and had surgery for hemorrhoids with Dr. Alatorre, she has underlying history of scleroderma, Raynaud's disease, hypertension, history of hyperlipidemia, history of osteoarthritis, history of osteoporosis, history of gastroesophageal reflux disease, history of chronic pain syndrome maintained on narcotics, history of pressure ulcer of the left buttock stage II, history of urinary retention requiring Panchal catheter placement patient was evaluated by urology on previous admission. Patient was evaluated at [facility] emergency room, her vital examination on presentation revealed a temperature of 97.8 pulse 108 respiration 18 blood pressure 102/67 pulse ox 94% on 3 L nasal cannula, her white blood count was 13.3 hemoglobin 10.4 platelet count 311 BUN 19 creatinine 0.44 Li virus PCR was negative. On 11/21/2020 patient was seen and examined on the medical floor she is alert and oriented 3 in no apparent distress she is complaining of stools incontinence patient stated that she is constantly having liquid stool coming out of the rectum she is also complaining of chest tightness and shortness of breath and occasional cough otherwise she denies any complaints. At this point will check stools for C. diff, consultation for gastroenterology was initiated. On 11/22/2020 patient was seen and examined on the medical floor he no apparent distress, she is complaining of shortness of breath she is maintained on oxygen via nasal cannula. Currently at 8 L per minute she has occasional cough she is maintained on IV antibiotic she was evaluated by pulmonary 80 scan angiogram of the chest was ordered however patient refused to have it so far. Otherwise she denies any complaints at this time there is no fever or chills no headache or dizziness no chest pain no nausea or vomiting no abdominal pain no diarrhea no blood in the stools no burning with urination no frequency or urgency and no hematuria. On 11/23/2020 patient was seen and examined on the medical floor she is somnolent arousable answer a few questions and returns to sleep she is maintained on oxygen via nasal cannula currently she is on 6 L/m she denies any chest pain denies any abdominal pain no nausea or vomiting she still has shortness of breath especially with any activity she is having some cough without any sputum production she is still having some stool incontinence. On 11/24/2020 patient was seen and examined on the medical floor she is still complaining of severe shortness of breath she is complaining of cough without sputum production there is no fever or chills no headache or dizziness no chest pain no palpitation no nausea or vomiting no abdominal pain no diarrhea no blood in the stools no burning with urination no frequency or urgency and no hematuria On 11/25/2020 patient is currently resting in bed currently working with physical therapy. Does state mild improvement. White blood cell improving to 9.6. Patient remains on IV Zosyn. Patient denies chest pain. Patient denies nausea vomiting or diarrhea. Patient denies any urinary burning or frequency. On 11/26/2020 patient was seen and examined on the medical floor she is alert and oriented 3 in no apparent distress she is still complaining of shortness of breath with any activity she is still complaining of leakage in the stools otherwise she denies any complaints at this time there is no fever or chills no headache or dizziness no chest pain no nausea or vomiting no abdominal pain no blood in the stools no burning with urination no frequency or urgency and no hematuria On 11/27/2020 patient is alert and oriented 3. Patient requesting Panchal catheter to be attempted to be removed. Voiding trial okay to be initiated per nursing staff. Patient was evaluated by urology services. Patient is having some shortness of breath today patient is on high flow 8 L improved. Patient denies chest pain. Patient denies any nausea or vomiting. Patient denies any urinary burning or frequency. On 11/28/2020 patient was seen and examined on the medical floor she is alert and oriented 3 in no apparent distress she is still complaining of shortness of breath and is maintained on oxygen 6 L via nasal cannula she has occasional cough no chest pain no palpitation no nausea or vomiting no abdominal pain no diarrhea no blood in the stools, patient still has Panchal catheter, plan is to discontinue Panchal catheter tomorrow in a.m. and monitor if patient can void. Sputum culture was positive for MRSA patient is maintained on IV vancomycin at this time. On 11/29/2020 patient was seen and examined on the medical floor she is alert and oriented 3 in no apparent distress there is no fever or chills no headache or dizziness, she is still complaining of shortness of breath, she is maintained on oxygen 4 L via nasal cannula at this time she still has episodes of cough, no nausea or vomiting no abdominal pain no diarrhea no blood in the stools Panchal catheter was removed this a.m. patient has not voided yet, will monitor closely On 11/30/2020 patient is alert and oriented 3 resting comfortably in bed. Per nursing staff patient had episode of desaturation likely secondary to anxiety. Pulmonary services are following repeat chest x-ray ordered. At this time patient is resting comfortably in bed. Patient is now on high flow oxygen 12L On 12/01/2020. Patient's alert and oriented 3 currently working with physical therapy. Patient oxygen requirement down to 8 L high flow. Patient is still complaining of rectal pain due to hemorrhoids. We'll consult surgical services for further evaluation. Patient denies any chest pain. Patient denies nausea vomiting or diarrhea. Patient denies any urinary burning or frequency. On 12/02/2020 patient was seen and examined on the medical floor she is alert and oriented 3 in no apparent distress she is complaining of rectal pain and lower abdominal pain surgery was consulted again and computed tomography scan of the abdomen and pelvis was ordered otherwise patient is feeling better her shortness of breath and cough has improved somewhat she is maintained on oxygen at 7 L via nasal cannula there is no fever or chills no headache or dizziness no chest pain she still has shortness of breath and cough no nausea or vomiting no diarrhea no blood in the stools no urinary symptoms Panchal catheter is in patient failed trial of discontinuing Panchal catheter due to urinary retention. On 12/03/2020 patient was seen and examined on the medical floor she is alert and oriented 3 in no apparent distress computed tomography scan of the abdomen and pelvis revealed evidence of constipation with fecal impaction patient was evaluated again by surgery and call likely was ordered otherwise patient is complaining of cough and shortness of breath otherwise no complaints, there is n o fever or chills no headache or dizziness no chest pain no shortness of breath no cough no nausea or vomiting no abdominal pain no diarrhea and no urinary symptoms On 12/04/2020 patient is alert and oriented 3 resting comfortably in bed. Patient did have large BM prior to getting GoLYTELY. Patient states some improvement right after bowel movement but states that pain has returned continue medical management to prevent constipation and fecal impaction. Patient denies chest pain. Patient remains on 8 L high flow. Pulmonary services following. Patient denies nausea vomiting or diarrhea. Patient denies any urinary burning or frequency. Panchal catheter remains in place. Objective - Vital Signs Vital signs: Vital Signs Temp 97.7 F 12/04/20 07:34 Pulse 72 12/04/20 07:35 Resp 17 12/04/20 07:34 BP 108/65 12/04/20 07:34 Pulse Ox 91 L 12/04/20 07:34 Intake & Output 12/03/20 12/04/20 12/04/20 18:59 06:59 18:59 Intake Total 222 Output Total 300 475 Balance -78 -475 Weight 75.75 kg Intake: Oral 222 Output: Urine 300 475 Other: # Voids 3 # Bowel Movements 1 - Exam In general patient is alert and oriented 3 in no apparent distress HEENT head normocephalic and atraumatic Neck is supple no JVD no goiter no lymphadenopathy Chest exam reveals a scattered crackles bilaterally no wheezing Cardiac exam reveals regular heart sounds S1 and S2 with 2/6 systolic murmur in the left sternal border Abdomen is soft nontender no organomegaly with normal bowel sounds Extremity exam reveals 1+ edema Neurological examination reveals no gross focal deficit - Labs CBC & Chem 7: 12/03/20 07:52 12/03/20 07:52 Labs: Abnormal Lab Results - Last 24 Hours (Table) 12/03/20 Range/Units 07:52 WBC 11.03 H (4.50-10.00) X 10*3/uL RBC 3.37 L (4.10-5.20) X 10*6/uL Hgb 9.7 L (12.0-15.0) g/dL Hct 34.1 L (37.2-46.3) % MCV 101.2 H (80.0-97.0) fL MCHC 28.4 L (32.0-37.0) g/dL RDW 15.7 H (11.5-14.5) % Plt Count 470 H (140-440) X 10*3/uL Immature Gran # 0.08 H (0.00-0.04) X 10*3/uL Neutrophils # 8.63 H (1.80-7.70) X 10*3/uL Eosinophils # 0.69 H (0.04-0.35) X 10*3/uL Assessment and Plan Plan: 1. Bilateral pneumonia patient was evaluated at [facility] and transferred to [facility] she was started on IV antibiotics. She currently maintained on IV Zosyn. White blood cell improving. Pulmonary and infectious disease following. Sputum showing MRSA. Patient currently on Zyvox 2. Bilateral pleural effusion will recheck chest x-ray in a.m. 3. Acute on chronic hypoxic respiratory failure 4. Sepsis as evidenced by leukocytosis, tachycardia, patient received IV fluid boluses and currently she is maintained on IV antibiotics blood pressure is stable and will monitor closely . 5. Recent fall with back pain Will continue with current narcotic regimen and adjust as needed 6. Recent surgery for hemorrhoids, patient is still complaining of pain in the rectal area and stool incontinence. C. diff negative 7. Urinary retention, patient was evaluated by urology on previous admission, she is still has a Panchla catheter, will consult urology again for evaluation. Per urology services trial void prior to discharge follow-up outpatient in 12 weeks 8. Evidence of urinary tract infection Will continue with current antibiotics awaiting urine and blood culture results 9. Underlying history of scleroderma 10. Underlying history of hypertension 11. Underlying history of hyperlipidemia 12. Underlying history of chronic pain syndrome maintained on narcotics 13. Underlying history of gastroesophageal reflux disease. 14. Underlying history of anxiety disorder. 15. Fecal impaction. Surgical services were consulted a GoLYTELY order placed patient did have a large BM prior to administration of medication. Continue medical management to prevent further issues in regards to fecal impaction and constipation At this time patient is admitted to medical floor, she is started on IV antibiot ics Home medications reviewed and reordered Check stools for C. diff, test was negative Pulmonary, GI services, infectious disease and urology services following Social work consult for possible rehab upon discharge PT OT consulted
--- NOTE | 2020-12-04 11:37 | P.PN ---
Subjective Progress Note Date: 12/04/20 This is a 75-year-old female that is transferred down from [facility]. She lives up in the [facility] area. The patient was recently diagnosed with a urinary tract infection and pneumonia. She was also diagnosed with sepsis and placed on oxygen at 3 L. Typically she is not on oxygen therapy. The patient was transferred down to for further management and evaluation. Her complaints include primarily shortness of breath, and cough. She's not producing much or any phlegm. She denies any chest pain. She also denies any nausea, vomiting, or diarrhea. She denied any fever or chills. She did recently fall, and injured her back. Apparently there were no fractures noted. Currently, her chest x-ray showing diffuse bilateral infiltrates. Her primary care provider is Dr. Darcy Araujo. Chest x-ray showed bilateral infiltrates, right greater than left. Her COVID 19 testing was negative. Her white count was 8.1 down from 13.3, white count 10.3, hematocrit 34.1, and platelet count 314,000. Sodium was 139, potassium 5.1, chloride 107, CO2 24, anion gap 8, BUN 16, creatinine 0.37. Her urine was yellow and cloudy with a specific gravity 1.037. Her leukocyte esterase test was moderately positive with 20 WBCs, and rare bacteria. Currently, she is on vancomycin and also Zosyn. Culture data including blood sampling, sputum, and urine are either pending or negative. Clinically, she was requiring 10 L high flow nasal cannula for saturations between 93-97%. She did not appear to have any significant distress. Progress note dated 11/22/2020. 75-year-old female that we saw yesterday in consultation. She was transferred down from [facility], with urinary tract infection and pneumonia. Currently, she is on 10 L high flow nasal O2. Today, she complains mostly of nasal congestion and stuffiness. We recommended some Flonase nasal spray for that. In addition, because of her diffuse bilateral infiltrates, we went ahead and ordered a CT angiogram. Her white count is 12.3, hemoglobin 9.5, hematocrit 34.4, and platelet count 313,000. Sodium is 144, potassium 4.3, chlorides 110, CO2 26, anion gap 8, BUN and creatinine of 20 and 0.5. Her urinalysis from yesterday shows a urine to be yellow and cloudy, with moderate positive leukocyte esterase, 20 WBCs, and rare bacteria. Coronavirus testing was negative although she did have COVID 19 in the past. Current temperature is 98.1, heart rate 80, respiratory rate 16, blood pressure 107/66, with a mean of 79, and saturations are 93% 10 L high flow nasal O2. Patient is seen today 11/23/2020 in follow-up on the regular medical floor. She is currently sitting up in a chair at the bedside. Awake and alert in no acute distress. Maintaining O2 saturations up to 100% on 15 L nonrebreather mask. She's afebrile. Tachycardic. White count 14.6. Hemoglobin 10.0. Sodium 141. Potassium 4.1. Creatinine 0.5. She remains on bronchodilators, insulin. Antibiotics in the form of Zosyn. The patient is seen today 11/24/2020 in follow-up on the regular medical floor. She is currently sitting up in bed. Breathing a bit easier today compared to yesterday. Still requiring 10 L high flow nasal cannula. Urine culture revealed no growth. White count 11.0. Hemoglobin 9.7. Sodium 139. Potassium 3.8. Creatinine 0.4. Remains on bronchodilators, prednisone. Antibiotics in the form of Zosyn. The patient is seen today 11/25/2020 in follow-up on the regular medical floor. She is currently resting comfortably in bed. Breathing easier today compared to yesterday. Currently on 8 L high flow nasal cannula. She's afebrile. Hemodynamically stable. White count 9.6. Hemoglobin 10.1. Sodium 138. Potassium 4.1. Creatinine 0.39. She remains on DuoNeb inhalations, prednisone. Lovenox for DVT prophylaxis. Antibiotics in the form of Zosyn. Urine culture revealed no growth. On today's evaluation of 11/28/2020 the patient remains on 6 L of oxygen by nasal cannula. Chest x-ray was done yesterday and showed persistent bilateral areas of acute infiltration/chronic infiltration and she does have baseline cardiomegaly and baseline ILD related to her systemic sclerosis. Noted the patient's older CAT scan of the chest also showed chronic ILD consistent with interstitial lung disease from connective tissue disease disorder. For now, the sputum is also positive for MRSA and the patient is currently on vancomycin. She is weak. She is quite debilitated. Her most recent CAT scan of the chest that was done on 11/22/2020. Indicated the possibility of progression of the diffuse bilateral groundglass pulmonary opacities. There was no evidence of any pulmonary embolism. There was small to moderate-sized Lymph Nodes along with Some Mild Cardiomegaly and T12 Compression Fracture of the Spine with a 30% Height Loss. In Terms of Her Scleroderma and ILD, the Patient Remains on Cell Cept and She Has Also Completed a Prednisone Burst Taper. CellCept Is Being Given a Dose of 500 Mg by Mouth 3 Times A Day. On 11/29/2020 the patient is on oxygen and she is currently at 6 L per minute nasal cannula. No major change compared to yesterday. Overnight, she was stable and she did not have any new complaints. She is spending most of the time in bed. She remains on vancomycin regarding the MRSA that was cultured in the sputum. As mentioned earlier, she has ILD related to scleroderma and in addition she got infected with COVID 19 which ended up Attributing her respiratory failure and she developed ongoing persistent infiltrates and fibrotic changes in lung bases bilaterally following the Viral infection. No major swelling lower extremities. She is still on CellCept for now. She is also treated a prednisone burst taper. No altered mentation. The patient is seen today 11/30/2020 and follow-up on the regular medical floor. She is currently sitting up in a chair at the bedside. Awake and alert in no acute distress. Earlier this morning she had issues with desaturation on 6 L and required Ventimask placement. She is up to 95-99%. She'll be transitioned back to 6 L high flow nasal cannula. No worsening shortness of breath, cough or congestion. Chest x-ray continues to show persistent bilateral area areas of acute infiltration on background ILD and COPD. Possible ARDS. No significant improvement. Sputum culture from back on the was positive for MRSA and Lorrie. She remains on vancomycin. Continued on bronchodilators, prednisone taper. Lovenox for DVT prophylaxis. Remains on CellCept for her scleroderma and ILD The patient is seen today 12/01/2020 in follow-up on the regular medical floor. She is currently sitting up at the bedside with physical therapy on standby. She is awake and alert in no acute distress. Currently on 6 L high flow nasal cannula. No worsening shortness of breath, cough or congestion. Still dyspneic with minimal conversation. Sputum culture was positive for MRSA and Lorrie. Sodium 139. Potassium 3.6. Creatinine 0.45. Currently on Zyvox. Remains on bronchodilators him a prednisone taper. Needs increased encouragement regarding nutrition and activity. Lovenox for DVT prophylaxis. The patient is seen today 12/02/2020 in follow-up on the regular medical floor. She is currently sitting up in chair at the bedside, working with physical therapy. She is breathing easier today compared to yesterday. Currently on 8 L high flow nasal cannula. She remains on bronchodilators. Prednisone. Zyvox. 12/03/2020 I'm seeing the patient for a follow-up. The patient is on oxygen she is currently on 7 L of oxygen by nasal cannula with a pulse of 77%. She is afebrile. No new complaints patient is working with physical therapy. She is trying to advance her diet. she is undergoing a CAT scan of the abdomen that showed rectal fecal impaction underwent L1 compression fractures and small bilateral pleural effusions. The pulmonary infiltrates in the lung bases have improved ankle inversion and there was moderate interstitial infiltrates involving the lung bases bilaterally along with a small hiatal hernia. No other issues for now. 12/04/2020, no change in her condition of the patient remains on oxygen at 7 L. She is still on Zyvox. No significant pain issues. She is having on and off d ifficulties in swallowing. No fever. No chills. No other significant events over the past 24 hours. We have stated that the patient may end up being a chronic oxygen dependent patient posterior Covid 19 pneumonia which caused significant amount of scarring and fibrosis and the lung bases. She is becoming progressively more debilitated. She will need rehabilitation. Objective - Vital Signs Vital signs: Vital Signs Temp 97.7 F 12/04/20 07:34 Pulse 78 12/04/20 11:00 Resp 17 12/04/20 07:34 BP 108/65 12/04/20 07:34 Pulse Ox 91 L 12/04/20 07:34 Intake & Output 12/03/20 12/04/20 12/04/20 18:59 06:59 18:59 Intake Total 222 222 Output Total 300 475 Balance -78 -475 222 Weight 75.75 kg Intake: Oral 222 222 Output: Urine 300 475 Other: Voiding Method Indwelling Catheter # Voids 3 # Bowel Movements 1 - Exam GENERAL EXAM: Alert, 75-year-old female patient, on 6 L high flow nasal cannula. Comfortable in no apparent distress. HEAD: Normocephalic. EYES: Normal reaction of pupils, equal size. NOSE: Clear with pink turbinates. THROAT: No erythema or exudates. NECK: No masses, no JVD. CHEST: No chest wall deformity. LUNGS: Equal air entry with bilateral scattered rhonchi, diminished. CVS: S1 and S2 normal with no audible murmur, regular rhythm. ABDOMEN: No hepatosplenomegaly, normal bowel sounds, no guarding or rigidity. SPINE: No scoliosis or deformity SKIN: No rashes CENTRAL NERVOUS SYSTEM: No focal deficits, tone is normal in all 4 extremities. EXTREMITIES: There is no peripheral edema. No clubbing, no cyanosis. Peripheral pulses are intact. - Labs CBC & Chem 7: 12/03/20 07:52 12/03/20 07:52 Labs: Abnormal Lab Results - Last 24 Hours (Table) 12/03/20 Range/Units 07:52 WBC 11.03 H (4.50-10.00) X 10*3/uL RBC 3.37 L (4.10-5.20) X 10*6/uL Hgb 9.7 L (12.0-15.0) g/dL Hct 34.1 L (37.2-46.3) % MCV 101.2 H (80.0-97.0) fL MCHC 28.4 L (32.0-37.0) g/dL RDW 15.7 H (11.5-14.5) % Plt Count 470 H (140-440) X 10*3/uL Immature Gran # 0.08 H (0.00-0.04) X 10*3/uL Neutrophils # 8.63 H (1.80-7.70) X 10*3/uL Eosinophils # 0.69 H (0.04-0.35) X 10*3/uL Assessment and Plan Plan: 1 Acute hypoxemic respiratory failure secondary to bilateral pneumonia, currently on 6 L high flow nasal cannula. Patient has chronic ILD evident on previous CAT scan of the chest in 2014 2015. Subsequently, she got Covid 19 in July 2020 diffuse bilateral groundglass pulmonary infiltrates somewhat patchy and peripheral more so in the lower lobes. Follow-up CAT scan of the chest showed chronic fibrotic changes in both fibrotic and interstitial changes bilaterally from September 2020 and October 2020. 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 A superinfection with bacterial pneumonia is likely as the patient positive for MRSA and the patient is still on vancomycin. On 7 L of oxygen by nasal cannula the patient is currently on Zyvox. The follow-up CAT scan of the abdomen shows some limited improvement in the interstitial infiltrates in lung bases bilaterally. She is currently on vancomycin. She is quite debilitated and this is a very slow process in terms of recovery. 2 Urinary tract infection, rule out urosepsis. Chronic Panchal. 3 Prior history of COVID 19 pneumonitis. 4 Severe hypoxemic respiratory failure, rule out early acute respiratory distress syndrome (ARDS). 5 History of osteoarthritis. 6 History of pneumonia. 7 History of Raynaud's syndrome. 8 History of progressive systemic sclerosis (PSS). 9 History of varicose veins. 10 History of degenerative disc disease. 11 Lifelong nonsmoker. 12 rectal fecal impaction Plan: We will continue the current treatment plan for now continue treatment of MRSA in the sputum/MRSA superinfection with Zyvox. The patient also has a post covert chronic interstitial lung. Lung bases bilaterally and she is oxygen dependent. Continue CellCept Prednisone 10 mg by mouth daily Titrate down the FiO2 as tolerated, currently on 7 L oxygen by nasal cannula unable to take out the Panchal because of chronic urinary retention The patient was seen by general surgery and the patient will be given GoLYTELY for her rectal fecal impaction and her son infection is also improved. Plan is for discharge to [facility] on the [place]/ [facility] We will see as needed
[2020-12-04 11:46] LABS: Basophils # (A) 0.03 X 10*3/uL (0.00-0.10); Basophils % (A) 0.4 %; Eosinophils # (A) 0.65 X 10*3/uL (0.04-0.35); Eosinophils % (A) 9.2 %; HCT 30.9 % (37.2-46.3); HGB 8.9 g/dL (12.0-15.0); Lymphocytes # (A) 1.19 X 10*3/uL (0.90-5.00); Lymphocytes % (A) 16.9 %; MCH 28.7 pg (27.0-32.0); MCHC 28.8 g/dL (32.0-37.0); MCV 99.7 fL (80.0-97.0); Mean Platelet Volume 9.8 fL (9.5-12.2); Monocytes # (A) 0.71 X 10*3/uL (0.20-1.00); Monocytes % (A) 10.1 %; Neutrophils % (A) 62.7 %; Platelet Count 395 X 10*3/uL (140-440); RDW 15.8 % (11.5-14.5); WBC 7.03 X 10*3/uL (4.50-10.00)
[2020-12-04] MEDS: ACETAMINOPHEN TAB 325 MG TAB PO PRN (11:48)
[2020-12-04 12:40] LABS: African American GFR (CKD) 117.3 (60.0-200.0); Albumin 3.4 g/dL (3.80-4.90); Albumin/Globulin Ratio 2.13 (1.60-3.17); Anion Gap 5.7 mmol/L (4.00-12.00); BUN/Creat Ratio 22.5 Ratio (12.00-20.00); Calcium 8.8 mg/dL (8.7-10.3); Carbon Dioxide 28.3 mmol/L (21.6-31.8); Globulin 1.6 g/dL (1.6-3.3); Non-African American GFR(CKD) 101.2 (60.0-200.0); Potassium 4.2 mmol/L (3.5-5.5); Total Bilirubin 0.3 mg/dL (0.2-1.2)
--- NOTE | 2020-12-04 13:21 | P.PN ---
Progress Note - Text Progress Note Date: 12/04/20 The patient recently failed a voiding trial, so the Panchal catheter was replaced. Computed tomography scan yesterday showed evidence of constipation with fecal impaction. This along with diminished ambulation may be contributing to her incomplete bladder emptying. I would suggest another voiding trial as her condition improves.
--- NOTE | 2020-12-04 17:11 | P.PN ---
Progress Note - Text Progress Note Date: 12/04/20 Patient states her pain is slightly better. She did have some balance. On exam vitals are stable her abdomen soft. Chronic constipation causing pelvic pain. Patient will have an x-ray performed tomorrow to evaluate her fecal impaction.
[2020-12-04] MEDS: ASCORBIC ACID 500 MG TAB PO SCH (21:22)
[2020-12-04] MEDS: MELATONIN 5 MG TABLET PO SCH (21:22)
[2020-12-04] MEDS: TAMSULOSIN 0.4 MG CAP.ER.24H PO SCH (21:22)
[2020-12-04] MEDS: ATORVASTATIN 20 MG TAB PO SCH (21:22)
[2020-12-04] MEDS: MORPHINE SULFATE ER 15 MG TABLET PO SCH (21:22)
--- NOTE | 2020-12-04 23:13 | PN ---
PROGRESS NOTE DATE OF SERVICE: 12/04/2020 REASON FOR FOLLOWUP: MRSA pneumonia. INTERVAL HISTORY: The patient is currently afebrile. She is breathing slightly comfortably. The patient denies having any chest pain. Did have a cough. No sputum. No abdominal pain. No diarrhea. PHYSICAL EXAMINATION: Blood pressure 119/65, pulse of 53, temperature 98. She is 98% on 6 L high flow oxygen. General description is an elderly female up in the bed in no distress. Respiratory system: Unlabored breathing, decreased intensity of breath sounds. HEART: S1, S2. Regular rate. ABDOMEN: Soft, no tenderness. LABS: Hemoglobin 8.9, white count of 7.3. Creatinine 0.4. DIAGNOSTIC IMPRESSION AND PLAN: Patient with MRSA pneumonia for which the patient currently covered with Zyvox to continue to finish a 10 day course of therapy and close outpatient followup. Continue supportive care. MMAYAZL / DENILSONN: [id number] /
[2020-12-05] MEDS: GABAPENTIN 100 MG CAP PO SCH ×3 (05:16→20:35)
[2020-12-05] MEDS: IPRATROPIUM-ALBUTEROL 3 ML NEB INHALATION SCH ×4 (07:27→19:15)
[2020-12-05] MEDS: predniSONE 10 MG TAB PO SCH (08:42)
[2020-12-05] MEDS: BENZONATATE 100 MG CAP PO SCH ×3 (08:42→20:35)
[2020-12-05] MEDS: ASPIRIN 81 MG PO SCH (08:42)
[2020-12-05] MEDS: guaiFENesin 600 MG TABLET.ER PO SCH ×2 (08:42→20:36)
[2020-12-05] MEDS: METOPROLOL TARTRATE 12.5 MG TAB PO SCH ×2 (08:42→20:36)
[2020-12-05] MEDS: NIFEdipine XL 30 MG TAB.ER.24 PO SCH ×2 (08:43→20:35)
[2020-12-05] MEDS: MELOXICAM 7.5 MG TAB PO SCH (08:43)
[2020-12-05] MEDS: LINEZOLID 600 MG TAB PO SCH ×2 (08:43→20:36)
[2020-12-05] MEDS: MECLIZINE 12.5 MG TAB PO SCH ×3 (08:43→20:34)
[2020-12-05] MEDS: CHOLECALCIFEROL 25 MCG (1000 IU) TABLET PO SCH (08:43)
[2020-12-05] MEDS: DOCUSATE 100 MG CAP PO SCH ×2 (08:44→20:35)
[2020-12-05] MEDS: FAMOTIDINE 20 MG TAB PO SCH ×2 (08:44→20:36)
[2020-12-05] MEDS: ENOXAPARIN 40 MG/0.4 ML SYRINGE SQ SCH (08:44)
[2020-12-05] MEDS: HYDROcodone/APAP 10-325MG 1 EACH TAB PO PRN ×2 (08:53→15:36)
[2020-12-05 10:37] LABS: Basophils # (A) 0.07 X 10*3/uL (0.00-0.10); Basophils % (A) 0.9 %; Eosinophils # (A) 0.69 X 10*3/uL (0.04-0.35); Eosinophils % (A) 8.7 %; HCT 29.2 % (37.2-46.3); HGB 8.6 g/dL (12.0-15.0); Lymphocytes # (A) 1.87 X 10*3/uL (0.90-5.00); Lymphocytes % (A) 23.6 %; MCH 29.5 pg (27.0-32.0); MCHC 29.5 g/dL (32.0-37.0); Mean Platelet Volume 9.5 fL (9.5-12.2); Monocytes # (A) 0.77 X 10*3/uL (0.20-1.00); Monocytes % (A) 9.7 %; Neutrophils # (A) 4.46 X 10*3/uL (1.80-7.70); Neutrophils % (A) 56.5 %; Platelet Count 366 X 10*3/uL (140-440); RBC 2.92 X 10*6/uL (4.10-5.20); RDW 15.5 % (11.5-14.5); WBC 7.91 X 10*3/uL (4.50-10.00)
[2020-12-05 11:02] LABS: African American GFR (CKD) 117.3 (60.0-200.0); Albumin 3.4 g/dL (3.80-4.90); Albumin/Globulin Ratio 2.27 (1.60-3.17); Anion Gap 6.4 mmol/L (4.00-12.00); BUN/Creat Ratio 27.5 Ratio (12.00-20.00); Calcium 8.8 mg/dL (8.7-10.3); Carbon Dioxide 28.6 mmol/L (21.6-31.8); Globulin 1.5 g/dL (1.6-3.3); Non-African American GFR(CKD) 101.2 (60.0-200.0); Potassium 4.5 mmol/L (3.5-5.5); Total Bilirubin 0.2 mg/dL (0.2-1.2); Total Protein 4.9 g/dL (6.2-8.2)
--- NOTE | 2020-12-05 12:50 | P.PN ---
Subjective Progress Note Date: 12/05/20 HISTORY OF PRESENT ILLNESS This is a 75-year-old female patient treated for pneumonia . CAT scan showed i ncreased deep interstitial infiltrate question of infection. Patient was covered with vancomycin due to MRSA in sputum culture. She continues to have cough with sputum production less frequent. She states that her breathing is okay and she started to see improvement. She denies chest pain. No abdominal pain, nausea, vomiting or diarrhea. She has been afebrile, heart rate 80s, blood pressure 107/65, pulse ox 86 % on 2 L high flow nasal cannula. WBC 7.9 Creatinine 0.4. PHYSICAL EXAMINATION Gen: This is a 75-year-old female patient resting in bed. HEENT: Head is atraumatic, normocephalic. Pupils equal, round. Sclerae is anicteric. NECK: Supple. No JVD. No lymphadenopathy. LUNGS: Coarse breath sounds bilaterally. No wheezing. HEART: Regular rate and rhythm. ABDOMEN: Soft. No tenderness. EXTREMITIES: No pedal edema. No calf tenderness. NEUROLOGICAL: Patient is awake, alert and oriented x3. ASSESSMENT Bilateral MRSA pneumonia Acute hypoxic respiratory failure Possible Catheter associated Urinary tract infection secondary to chronic Panchal, ruled out PLAN Continue Zyvox 600 mg oral twice daily with plan for 8 more days, prescription sent to her pharmacy Further recommendations as patient progresses. The above dictated assessment and findings were discussed with Dr. Wallace. The impression and plan of care have been directed as dictated. Antonieta Nguyen nurse practitioner acting as scribe for Dr. Wallace. Objective - Vital Signs Vital signs: Vital Signs Temp 97.7 F 12/05/20 08:00 Pulse 64 12/05/20 08:00 Resp 17 12/05/20 08:00 BP 107/65 12/05/20 08:00 Pulse Ox 100 12/05/20 08:00 Intake & Output 12/04/20 12/05/20 12/05/20 18:59 06:59 18:59 Intake Total 444 480 Output Total 475 Balance 444 5 Intake: Oral 444 480 Output: Urine 475 Other: Voiding Method Indwelling Catheter Indwelling Catheter # Bowel Movements 4 - Labs CBC & Chem 7: 12/05/20 06:47 12/05/20 06:47 Labs: Abnormal Lab Results - Last 24 Hours (Table) 12/04/20 12/04/2021 Range/Units 06:59 06:59 06:47 RBC 3.10 L 2.92 L (4.10-5.20) X 10*6/uL Hgb 8.9 L 8.6 L (12.0-15.0) g/dL Hct 30.9 L 29.2 L (37.2-46.3) % MCV 99.7 H 100.0 H (80.0-97.0) fL MCHC 28.8 L 29.5 L (32.0-37.0) g/dL RDW 15.8 H 15.5 H (11.5-14.5) % Immature Gran # 0.05 H 0.05 H (0.00-0.04) X 10*3/uL Eosinophils # 0.65 H 0.69 H (0.04-0.35) X 10*3/uL Creatinine 0.4 L (0.6-1.5) mg/dL BUN/Creatinine Ratio 22.50 H (12.00-20.00) Ratio Total Protein 5.0 L (6.2-8.2) g/dL Albumin 3.40 L (3.80-4.90) g/dL Globulin (1.6-3.3) g/dL 12/05/20 Range/Units 06:47 RBC (4.10-5.20) X 10*6/uL Hgb (12.0-15.0) g/dL Hct (37.2-46.3) % MCV (80.0-97.0) fL MCHC (32.0-37.0) g/dL RDW (11.5-14.5) % Immature Gran # (0.00-0.04) X 10*3/uL Eosinophils # (0.04-0.35) X 10*3/uL Creatinine 0.4 L (0.6-1.5) mg/dL BUN/Creatinine Ratio 27.50 H (12.00-20.00) Ratio Total Protein 4.9 L (6.2-8.2) g/dL Albumin 3.40 L (3.80-4.90) g/dL Globulin 1.5 L (1.6-3.3) g/dL
--- NOTE | 2020-12-05 13:12 | P.PN ---
Subjective Progress Note Date: 12/05/20 CHIEF COMPLAINT: Rectal pain HISTORY OF PRESENT ILLNESS: Patient seen and examined with Dr. Alatorre. Panchito pandey is followed in regards to rectal pain and constipation. Patient did have bowel movements. She is on a regular diet. She still complains of rectal pain. Afebrile. WBC 7.91 PHYSICAL EXAM: VITAL SIGNS: Reviewed. GENERAL: Well-developed in no acute distress. HEENT: No sclera icterus. Extraocular movements grossly intact. Moist buccal mucosa. Head is atraumatic, normocephalic. ABDOMEN: Soft. Nondistended. NEUROLOGIC: Alert and oriented. Cranial nerves II through XII grossly intact. ASSESSMENT: 1. Rectal fecal impaction 2. Constipation PLAN: -We will give a bottle citrate of mag -Repeat abdominal x-ray -Continue supportive care Physician Drapery Examiner note has been reviewed by physician. Signing provider agrees with the documented findings, assessment, and plan of care. Objective - Vital Signs Vital signs: Vital Signs Temp 97.7 F 12/05/20 08:00 Pulse 80 12/05/20 11:27 Resp 16 12/05/20 11:27 BP 107/65 12/05/20 08:00 Pulse Ox 86 L 12/05/20 11:18 Intake & Output 12/04/20 12/05/20 12/05/20 18:59 06:59 18:59 Intake Total 444 480 Output Total 475 Balance 444 5 Intake: Oral 444 480 Output: Urine 475 Other: Voiding Method Indwelling Catheter Indwelling Catheter # Bowel Movements 4 - Labs CBC & Chem 7: 12/05/20 06:47 12/05/20 06:47 Labs: Abnormal Lab Results - Last 24 Hours (Table) 12/05/20 12/05/20 Range/Units 06:47 06:47 RBC 2.92 L (4.10-5.20) X 10*6/uL Hgb 8.6 L (12.0-15.0) g/dL Hct 29.2 L (37.2-46.3) % MCV 100.0 H (80.0-97.0) fL MCHC 29.5 L (32.0-37.0) g/dL RDW 15.5 H (11.5-14.5) % Immature Gran # 0.05 H (0.00-0.04) X 10*3/uL Eosinophils # 0.69 H (0.04-0.35) X 10*3/uL Creatinine 0.4 L (0.6-1.5) mg/dL BUN/Creatinine Ratio 27.50 H (12.00-20.00) Ratio Total Protein 4.9 L (6.2-8.2) g/dL Albumin 3.40 L (3.80-4.90) g/dL Globulin 1.5 L (1.6-3.3) g/dL
[2020-12-05] MEDS: MAGNESIUM CITRATE 296 ML BOTTLE PO ONE ×2 (13:34→15:07)
--- NOTE | 2020-12-05 13:38 | P.PN ---
Subjective Progress Note Date: 12/05/20 Principal diagnosis: Acute on chronic hypoxic respiratory failure related to bilateral pneumonia. This is a 75-year-old female that is transferred down from [facility]. She lives up in the [facility] [place] area. The patient was recently diagnosed with a urinary tract infection and pneumonia. She was also diagnosed with sepsis and placed on oxygen at 3 L. Typically she is not on oxygen therapy. The patient was transferred down to for further management and evaluation. Her complaints include primarily shortness of breath, and cough. She's not producing much or any phlegm. She denies any chest pain. She also denies any nausea, vomiting, or diarrhea. She denied any fever or chills. She did recently fall, and injured her back. Apparently there were no fractures noted. Currently, her chest x-ray showing diffuse bilateral infiltrates. Her primary care provider is Dr. Darcy Araujo. Chest x-ray showed bilateral infiltrates, right greater than left. Her COVID 19 testing was negative. Her white count was 8.1 down from 13.3, white count 10.3, hematocrit 34.1, and platelet count 314,000. Sodium was 139, potassium 5.1, chloride 107, CO2 24, anion gap 8, BUN 16, creatinine 0.37. Her urine was yellow and cloudy with a specific gravity 1.037. Her leukocyte esterase test was moderately positive with 20 WBCs, and rare bacteria. Currently, she is on vancomycin and also Zosyn. Culture data including blood sampling, sputum, and urine are either pending or negative. Clinically, she was requiring 10 L high flow nasal cannula for saturations between 93-97%. She did not appear to have any significant distress. Progress note dated 11/22/2020. 75-year-old female that we saw yesterday in consultation. She was transferred down from [facility], with urinary tract infection and pneumonia. Currently, she is on 10 L high flow nasal O2. Today, she complains mostly of nasal congestion and stuffiness. We recommended some Flonase nasal spray for that. In addition, because of her diffuse bilateral infiltrates, we went ahead and ordered a CT angiogram. Her white count is 12.3, hemoglobin 9.5, hematocrit 34.4, and platelet count 313,000. Sodium is 144, potassium 4.3, chlorides 110, CO2 26, anion gap 8, BUN and creatinine of 20 and 0.5. Her urinalysis from yesterday shows a urine to be yellow and cloudy, with moderate positive leuko cyte esterase, 20 WBCs, and rare bacteria. Coronavirus testing was negative although she did have COVID 19 in the past. Current temperature is 98.1, heart rate 80, respiratory rate 16, blood pressure 107/66, with a mean of 79, and saturations are 93% 10 L high flow nasal O2. Patient is seen today 11/23/2020 in follow-up on the regular medical floor. She is currently sitting up in a chair at the bedside. Awake and alert in no acute distress. Maintaining O2 saturations up to 100% on 15 L nonrebreather mask. She's afebrile. Tachycardic. White count 14.6. Hemoglobin 10.0. Sodium 141. Potassium 4.1. Creatinine 0.5. She remains on bronchodilators, insulin. Antibiotics in the form of Zosyn. The patient is seen today 11/24/2020 in follow-up on the regular medical floor. She is currently sitting up in bed. Breathing a bit easier today compared to yesterday. Still requiring 10 L high flow nasal cannula. Urine culture revealed no growth. White count 11.0. Hemoglobin 9.7. Sodium 139. Potassium 3.8. Creatinine 0.4. Remains on bronchodilators, prednisone. Antibiotics in t he form of Zosyn. The patient is seen today 11/25/2020 in follow-up on the regular medical floor. She is currently resting comfortably in bed. Breathing easier today compared to yesterday. Currently on 8 L high flow nasal cannula. She's afebrile. Hemodynamically stable. White count 9.6. Hemoglobin 10.1. Sodium 138. Potassium 4.1. Creatinine 0.39. She remains on DuoNeb inhalations, prednisone. Lovenox for DVT prophylaxis. Antibiotics in the form of Zosyn. Urine culture revealed no growth. On today's evaluation of 11/28/2020 the patient remains on 6 L of oxygen by nasal cannula. Chest x-ray was done yesterday and showed persistent bilateral areas of acute infiltration/chronic infiltration and she does have baseline cardiomegaly and baseline ILD related to her systemic sclerosis. Noted the patient's older CAT scan of the chest also showed chronic ILD consistent with interstitial lung disease from connective tissue disease disorder. For now, the sputum is also positive for MRSA and the patient is currently on vancomycin. She is weak. She is quite debilitated. Her most recent CAT scan of the chest that was done on 11/22/2020. Indicated the possibility of progression of the diffuse bilateral groundglass pulmonary opacities. There was no evidence of any pulmonary embolism. There was small to moderate-sized Lymph Nodes along with Some Mild Cardiomegaly and T12 Compression Fracture of the Spine with a 30% Height Loss. In Terms of Her Scleroderma and ILD, the Patient Remains on CellCept and She Has Also Completed a Prednisone Burst Taper. CellCept Is Being Given a Dose of 500 Mg by Mouth 3 Times A Day. On 11/29/2020 the patient is on oxygen and she is currently at 6 L per minute nasal cannula. No major change compared to yesterday. Overnight, she was stable and she did not have any new complaints. She is spending most of the time in bed. She remains on vancomycin regarding the MRSA that was cultured in the sputum. As mentioned earlier, she has ILD related to scleroderma and in addition she got infected with COVID 19 which ended up Attributing her respiratory failure and she developed ongoing persistent infiltrates and fibrotic changes in lung bases bilaterally following the Viral infection. No major swelling lower extremities. She is still on CellCept for now. She is also treated a prednisone burst taper. No altered mentation. The patient is seen today 11/30/2020 and follow-up on the regular medical floor. She is currently sitting up in a chair at the bedside. Awake and alert in no acute distress. Earlier this morning she had issues with desaturation on 6 L and required Ventimask placement. She is up to 95-99%. She'll be transitioned back to 6 L high flow nasal cannula. No worsening shortness of breath, cough or congestion. Chest x-ray continues to show persistent bilateral area areas of acute infiltration on background ILD and COPD. Possible ARDS. No significant improvement. Sputum culture from back on the was positive for MRSA and Lorrie. She remains on vancomycin. Continued on bronchodilators, prednisone taper. Lovenox for DVT prophylaxis. Remains on CellCept for her scleroderma and ILD The patient is seen today 12/01/2020 in follow-up on the regular medical floor. She is currently sitting up at the bedside with physical therapy on standby. She is awake and alert in no acute distress. Currently on 6 L high flow nasal cannula. No worsening shortness of breath, cough or congestion. Still dyspneic with minimal conversation. Sputum culture was positive for MRSA and Lorrie. Sodium 139. Potassium 3.6. Creatinine 0.45. Currently on Zyvox. Remains on bronchodilators him a prednisone taper. Needs increased encouragement regarding nutrition and activity. Lovenox for DVT prophylaxis. The patient is seen today 12/02/2020 in follow-up on the regular medical floor. She is currently sitting up in chair at the bedside, working with physical therapy. She is breathing easier today compared to yesterday. Currently on 8 L high flow nasal cannula. She remains on bronchodilators. Prednisone. Zyvox. 12/03/2020 I'm seeing the patient for a follow-up. The patient is on oxygen she is currently on 7 L of oxygen by nasal cannula with a pulse of 77%. She is afebrile. No new complaints patient is working with physical therapy. She is trying to advance her diet. she is undergoing a CAT scan of the abdomen that showed rectal fecal impaction underwent L1 compression fractures and small bilateral pleural effusions. The pulmonary infiltrates in the lung bases have improved ankle inversion and there was moderate interstitial infiltrates involving the lung bases bilaterally along with a small hiatal hernia. No other issues for now. 12/04/2020, no change in her condition of the patient remains on oxygen at 7 L. She is still on Zyvox. No significant pain issues. She is having on and off difficulties in swallowing. No fever. No chills. No other significant events over the past 24 hours. We have stated that the patient may end up being a chronic oxygen dependent patient posterior Covid 19 pneumonia which caused significant amount of scarring and fibrosis and the lung bases. She is becoming progressively more debilitated. She will need rehabilitation. On 12/05/2020 patient seen in follow-up on medical floor, she is currently down to 5 L of oxygen, earlier her pulse ox on 8 L of oxygen was 100%, the nurse tried diming the FiO2 down to 2 L however her pulse ox came down to 86% and subsequently FiO2 was increased to 5 L of oxygen per nasal cannula, clinically patient seems to be breathing comfortably, no worsening dyspnea, she is complaining of constipation, and she is currently on her way down to have an abdominal x-ray done, worsening dyspnea cough or congestion. Her last chest x- ray was on 11/30/2020 showing continued diffuse bilateral patchy and confluent airspace disease. CT of the abdomen and pelvis revealed extensive lower lobe pulmonary infiltrates that were slightly improved compared to old CT chest 1 month ago, small pleural effusions. Significant constipation with the rectal fecal impaction. From pulmonary perspective patient remains on Mucinex, nebulized bronchodilators, Zyvox for MRSA pneumonia. She has had no fever or chills. Objective - Vital Signs Vital signs: Vital Signs Temp 97.7 F 12/05/20 08:00 Pulse 80 12/05/20 11:27 Resp 16 12/05/20 11:27 BP 107/65 12/05/20 08:00 Pulse Ox 86 L 12/05/20 11:18 Intake & Output 12/04/20 12/05/20 12/05/20 18:59 06:59 18:59 Intake Total 444 480 Output Total 475 Balance 444 5 Intake: Oral 444 480 Output: Urine 475 Other: Voiding Method Indwelling Catheter Indwelling Catheter # Bowel Movements 4 - Exam GENERAL EXAM: Alert, very pleasant, 75-year-old white female, currently on 5 L of oxygen comfortable in no apparent distress. HEAD: Normocephalic/atraumatic. EYES: Normal reaction of pupils, equal size. Conjunctiva pink, sclera white. NOSE: Clear with pink turbinates. THROAT: No erythema or exudates. NECK: No masses, no JVD, no thyroid enlargement, no adenopathy. CHEST: No chest wall deformity. Symmetrical expansion. LUNGS: Equal air entry with diffuse bibasilar crackles CVS: Regular rate and rhythm, normal S1 and S2, no gallops, no murmurs, no rubs ABDOMEN: Soft, nontender. No hepatosplenomegaly, normal bowel sounds, no guarding or rigidity. EXTREMITIES: No clubbing, no edema, no cyanosis, 2+ pulses and upper and lower extremities. MUSCULOSKELETAL: Muscle strength and tone normal. SPINE: No scoliosis or deformity SKIN: No rashes CENTRAL NERVOUS SYSTEM: Alert and oriented -3. No focal deficits, tone is normal in all 4 extremities. PSYCHIATRIC: Alert and oriented -3. Appropriate affect. Intact judgment and insight. - Labs CBC & Chem 7: 12/05/20 06:47 12/05/20 06:47 Labs: Abnormal Lab Results - Last 24 Hours (Table) 12/05/20 12/05/20 Range/Units 06:47 06:47 RBC 2.92 L (4.10-5.20) X 10*6/uL Hgb 8.6 L (12.0-15.0) g/dL Hct 29.2 L (37.2-46.3) % MCV 100.0 H (80.0-97.0) fL MCHC 29.5 L (32.0-37.0) g/dL RDW 15.5 H (11.5-14.5) % Immature Gran # 0.05 H (0.00-0.04) X 10*3/uL Eosinophils # 0.69 H (0.04-0.35) X 10*3/uL Creatinine 0.4 L (0.6-1.5) mg/dL BUN/Creatinine Ratio 27.50 H (12.00-20.00) Ratio Total Protein 4.9 L (6.2-8.2) g/dL Albumin 3.40 L (3.80-4.90) g/dL Globulin 1.5 L (1.6-3.3) g/dL Assessment and Plan Plan: Assessment: 1 Acute hypoxemic respiratory failure secondary to bilateral pneumonia, currently on 6 L high flow nasal cannula. Patient has chronic ILD evident on previous CAT scan of the chest in 2014 2015. Subsequently, she got Covid 19 in July 2020 diffuse bilateral groundglass pulmonary infiltrates somewhat patchy and peripheral more so in the lower lobes. Follow-up CAT scan of the chest showed chronic fibrotic changes in both fibrotic and interstitial changes bilaterally from September 2020 and October 2020. 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 A superinfection with bacterial pneumonia is likely as the patient positive for MRSA and the patient is still on vancomycin. On 7 L of oxygen by nasal cannula the patient is currently on Zyvox. The follow-up CAT scan of the abdomen shows some limited improvement in the interstitial infiltrates in lung bases bilaterally. She is currently on vancomycin. She is quite debilitated and this is a very slow process in terms of recovery. 2 Urinary tract infection, rule out urosepsis. Chronic Panchal. 3 Prior history of COVID 19 pneumonitis. 4 Severe hypoxemic respiratory failure, rule out early acute respiratory distr ess syndrome (ARDS). 5 History of osteoarthritis. 6 History of pneumonia. 7 History of Raynaud's syndrome. 8 History of progressive systemic sclerosis (PSS). 9 History of varicose veins. 10 History of degenerative disc disease. 11 Lifelong nonsmoker. 12 rectal fecal impaction Plan: Continue weaning FiO2, patient has had no fever, no worsening dyspnea, she continues on Zyvox, continue bronchodilators, maintain aspiration precautions. Increase activity as tolerated, she is undergoing workup for constipation and rectal fecal impaction. From pulmonary perspective patient has remained stable, she can be considered for transfer to [facility] once cleared by medicine and surgery I performed a history & physical examination of the patient and discussed their management with my nurse practitioner, Teagan Ceron. I reviewed the nurse practitioner's note and agree with the documented findings and plan of care. Lung sounds are positive for diffuse crackles. The findings and the impression was discussed with the patient. I attest to the documentation by the nurse practitioner. Time with Patient: Less than 30
--- NOTE | 2020-12-05 14:30 | XR ---
EXAMINATION TYPE: XR abdomen 2V DATE OF EXAM: 12/05/2020 CLINICAL DATA: 75-year-old female abdominal pain and constipation, [facility] COMPARISON: CT 12/02/2020 FINDINGS: Lung bases show bilateral airspace opacities. There is large stool burden. The rectum is distended up to 10.3 cm wide but stable. No dilated small bowel seen. No differential air-fluid levels. IMPRESSION: 1. Note large stool burden and severe fecal impaction with the rectum distended up to 10.3 cm wide wi th stool. Patient is at risk for ischemic stercoral colitis from the excessive abnormal rectal disten tion. Fecal disimpaction advised. Manual disimpaction may be necessary given the amount of solid stoo l. 2. Bilateral airspace disease in the visualized lower lungs. Correlate as to etiology.
--- NOTE | 2020-12-05 19:41 | P.PN ---
Subjective Progress Note Date: 12/05/20 Claribel Ruiz, is a 75-year-old female, who presented to [facility] emergency room with back pain and shortness of breath, she states that she fell about 1 week ago, patient was evaluated at [facility], computed tomography scan of the thoracic spine and the lumbar spine was done and revealed evidence of old T12 vertebral fracture without any evidence for new vertebral fractures, computed tomography scan also revealed extensive bilateral pulmonary infiltrates with bilateral pleural effusions, patient also had evidence of urinary tract infection, she had leukocytosis suggestive of sepsis, she was transferred to [facility] emergency room and then admitted to medical floor for further evaluation and treatment. Patient had several recent admissions to [facility], her last discharge was on 10/22/2020, over the last few months patient had evidence of Covid 19 pneumonia, she also had rectal pain and rectal bleeding and had surgery for hemorrhoids with Dr. Alatorre, she has underlying history of scleroderma, Raynaud's disease, hypertension, history of hyperlipidemia, history of osteoarthritis, history of osteoporosis, history of gastroesophageal reflux disease, history of chronic pain syndrome maintained on narcotics, history of pressure ulcer of the left buttock stage II, history of urinary retention requiring Panchal catheter placement patient was evaluated by urology on previous admission. Patient was evaluated at [facility] emergency room, her vital examination on presentation revealed a temperature of 97.8 pulse 108 respiration 18 blood pressure 102/67 pulse ox 94% on 3 L nasal cannula, her white blood count was 13.3 hemoglobin 10.4 platelet count 311 BUN 19 creatinine 0.44 Li virus PCR was negative. On 11/21/2020 patient was seen and examined on the medical floor she is alert and oriented 3 in no apparent distress she is complaining of stools incontinence patient stated that she is constantly having liquid stool coming out of the rectum she is also complaining of chest tightness and shortness of breath and occasional cough otherwise she denies any complaints. At this point will check stools for C. diff, consultation for gastroenterology was initiated. On 11/22/2020 patient was seen and examined on the medical floor he no apparent distress, she is complaining of shortness of breath she is maintained on oxygen via nasal cannula. Currently at 8 L per minute she has occasional cough she is maintained on IV antibiotic she was evaluated by pulmonary 80 scan angiogram of the chest was ordered however patient refused to have it so far. Otherwise she denies any complaints at this time there is no fever or chills no headache or dizziness no chest pain no nausea or vomiting no abdominal pain no diarrhea no blood in the stools no burning with urination no frequency or urgency and no hematuria. On 11/23/2020 patient was seen and examined on the medical floor she is somnolent arousable answer a few questions and returns to sleep she is maintained on oxygen via nasal cannula currently she is on 6 L/m she denies any chest pain denies any abdominal pain no nausea or vomiting she still has shortness of breath especially with any activity she is having some cough without any sputum production she is still having some stool incontinence. On 11/24/2020 patient was seen and examined on the medical floor she is still complaining of severe shortness of breath she is complaining of cough without sputum production there is no fever or chills no headache or dizziness no chest pain no palpitation no nausea or vomiting no abdominal pain no diarrhea no blood in the stools no burning with urination no frequency or urgency and no hematuria On 11/25/2020 patient is currently resting in bed currently working with physical therapy. Does state mild improvement. White blood cell improving to 9.6. Patient remains on IV Zosyn. Patient denies chest pain. Patient denies nausea vomiting or diarrhea. Patient denies any urinary burning or frequency. On 11/26/2020 patient was seen and examined on the medical floor she is alert and oriented 3 in no apparent distress she is still complaining of shortness of breath with any activity she is still complaining of leakage in the stools otherwise she denies any complaints at this time there is no fever or chills no headache or dizziness no chest pain no nausea or vomiting no abdominal pain no blood in the stools no burning with urination no frequency or urgency and no hematuria On 11/27/2020 patient is alert and oriented 3. Patient requesting Panchal catheter to be attempted to be removed. Voiding trial okay to be initiated per nursing staff. Patient was evaluated by urology services. Patient is having some shortness of breath today patient is on high flow 8 L improved. Patient denies chest pain. Patient denies any nausea or vomiting. Patient denies any urinary burning or frequency. On 11/28/2020 patient was seen and examined on the medical floor she is alert and oriented 3 in no apparent distress she is still complaining of shortness of breath and is maintained on oxygen 6 L via nasal cannula she has occasional cough no chest pain no palpitation no nausea or vomiting no abdominal pain no diarrhea no blood in the stools, patient still has Panchal catheter, plan is to discontinue Panchal catheter tomorrow in a.m. and monitor if patient can void. Sputum culture was positive for MRSA patient is maintained on IV vancomycin at this time. On 11/29/2020 patient was seen and examined on the medical floor she is alert and oriented 3 in no apparent distress there is no fever or chills no headache or dizziness, she is still complaining of shortness of breath, she is maintained on oxygen 4 L via nasal cannula at this time she still has episodes of cough, no nausea or vomiting no abdominal pain no diarrhea no blood in the stools Panchal catheter was removed this a.m. patient has not voided yet, will monitor closely On 11/30/2020 patient is alert and oriented 3 resting comfortably in bed. Per nursing staff patient had episode of desaturation likely secondary to anxiety. Pulmonary services are following repeat chest x-ray ordered. At this time patient is resting comfortably in bed. Patient is now on high flow oxygen 12L On 12/01/2020. Patient's alert and oriented 3 currently working with physical therapy. Patient oxygen requirement down to 8 L high flow. Patient is still complaining of rectal pain due to hemorrhoids. We'll consult surgical services for further evaluation. Patient denies any chest pain. Patient denies nausea vomiting or diarrhea. Patient denies any urinary burning or frequency. On 12/02/2020 patient was seen and examined on the medical floor she is alert and oriented 3 in no apparent distress she is complaining of rectal pain and lower abdominal pain surgery was consulted again and computed tomography scan of the abdomen and pelvis was ordered otherwise patient is feeling better her shortness of breath and cough has improved somewhat she is maintained on oxygen at 7 L via nasal cannula there is no fever or chills no headache or dizziness no chest pain she still has shortness of breath and cough no nausea or vomiting no diarrhea no blood in the stools no urinary symptoms Panchal catheter is in patient failed trial of discontinuing Panchal catheter due to urinary retention. On 12/03/2020 patient was seen and examined on the medical floor she is alert and oriented 3 in no apparent distress computed tomography scan of the abdomen and pelvis revealed evidence of constipation with fecal impaction patient was evaluated again by surgery and call likely was ordered otherwise patient is complaining of cough and shortness of breath otherwise no complaints, there is n o fever or chills no headache or dizziness no chest pain no shortness of breath no cough no nausea or vomiting no abdominal pain no diarrhea and no urinary symptoms On 12/04/2020 patient is alert and oriented 3 resting comfortably in bed. Patient did have large BM prior to getting GoLYTELY. Patient states some improvement right after bowel movement but states that pain has returned continue medical management to prevent constipation and fecal impaction. Patient denies chest pain. Patient remains on 8 L high flow. Pulmonary services following. Patient denies nausea vomiting or diarrhea. Patient denies any urinary burning or frequency. Panchal catheter remains in place. On 12/05/2020 patient was seen and examined on the medical floor, she is alert and oriented 3 in no distress there is no fever or chills no headache or dizziness no chest pain no shortness of breath no cough no nausea or vomiting, she is having some abdominal pain and discomfort Panchal catheter is in Objective - Vital Signs Vital signs: Vital Signs Temp 97.7 F 12/05/20 08:00 Pulse 80 12/05/20 11:27 Resp 16 12/05/20 11:27 BP 107/65 12/05/20 08:00 Pulse Ox 86 L 12/05/20 11:18 Intake & Output 12/04/20 12/05/20 12/05/20 18:59 06:59 18:59 Intake Total 444 480 Output Total 475 Balance 444 5 Intake: Oral 444 480 Output: Urine 475 Other: Voiding Method Indwelling Catheter Indwelling Catheter # Bowel Movements 4 - Exam In general patient is alert and oriented 3 in no apparent distress HEENT head normocephalic and atraumatic Neck is supple no JVD no goiter no lymphadenopathy Chest exam reveals a scattered crackles bilaterally no wheezing Cardiac exam reveals regular heart sounds S1 and S2 with 2/6 systolic murmur in the left sternal border Abdomen is soft nontender no organomegaly with normal bowel sounds Extremity exam reveals 1+ edema Neurological examination reveals no gross focal deficit - Labs CBC & Chem 7: 12/05/20 06:47 12/05/20 06:47 Labs: Abnormal Lab Results - Last 24 Hours (Table) 12/04/20 12/05/20 12/05/20 Range/Units 06:59 06:47 06:47 RBC 2.92 L (4.10-5.20) X 10*6/uL Hgb 8.6 L (12.0-15.0) g/dL Hct 29.2 L (37.2-46.3) % MCV 100.0 H (80.0-97.0) fL MCHC 29.5 L (32.0-37.0) g/dL RDW 15.5 H (11.5-14.5) % Immature Gran # 0.05 H (0.00-0.04) X 10*3/uL Eosinophils # 0.69 H (0.04-0.35) X 10*3/uL Creatinine 0.4 L 0.4 L (0.6-1.5) mg/dL BUN/Creatinine Ratio 22.50 H 27.50 H (12.00-20.00) Ratio Total Protein 5.0 L 4.9 L (6.2-8.2) g/dL Albumin 3.40 L 3.40 L (3.80-4.90) g/dL Globulin 1.5 L (1.6-3.3) g/dL Assessment and Plan Plan: 1. Bilateral pneumonia patient was evaluated at [facility] and transferred to [facility] she was started on IV antibiotics. She currently maintained on IV Zosyn. White blood cell improving. Pulmonary and infectious disease following. Sputum showing MRSA. Patient currently on Zyvox 2. Bilateral pleural effusion will recheck chest x-ray in a.m. 3. Acute on chronic hypoxic respiratory failure 4. Sepsis as evidenced by leukocytosis, tachycardia, patient received IV fluid boluses and currently she is maintained on IV antibiotics blood pressure is stable and will monitor closely . 5. Recent fall with back pain Will continue with current narcotic regimen and adjust as needed 6. Recent surgery for hemorrhoids, patient is still complaining of pain in the rectal area and stool incontinence. C. diff negative 7. Urinary retention, patient was evaluated by urology on previous admission, she is still has a Panchal catheter, will consult urology again for evaluation. Per urology services trial void prior to discharge follow-up outpatient in 12 weeks 8. Evidence of urinary tract infection Will continue with current antibiotics awaiting urine and blood culture results 9. Underlying history of scleroderma 10. Underlying history of hypertension 11. Underlying history of hyperlipidemia 12. Underlying history of chronic pain syndrome maintained on narcotics 13. Underlying history of gastroesophageal reflux disease. 14. Underlying history of anxiety disorder. 15. Fecal impaction. Surgical services were consulted a GoLYTELY order placed patient did have a large BM prior to administration of medication. Continue medical management to prevent further issues in regards to fecal impaction and constipation At this time patient is admitted to medical floor, she is started on IV antibiotics Home medications reviewed and reordered Check stools for C. diff, test was negative Pulmonary, GI services, infectious disease and urology services following Social work consult for possible rehab upon discharge PT OT consulted
[2020-12-05] MEDS: TAMSULOSIN 0.4 MG CAP.ER.24H PO SCH (20:34)
[2020-12-05] MEDS: MORPHINE SULFATE ER 15 MG TABLET PO SCH (20:35)
[2020-12-05] MEDS: ASCORBIC ACID 500 MG TAB PO SCH (20:36)
[2020-12-05] MEDS: MELATONIN 5 MG TABLET PO SCH (20:36)
[2020-12-05] MEDS: ATORVASTATIN 20 MG TAB PO SCH (20:37)
[2020-12-06] MEDS: GABAPENTIN 100 MG CAP PO SCH ×3 (05:53→22:33)
[2020-12-06] MEDS: IPRATROPIUM-ALBUTEROL 3 ML NEB INHALATION SCH ×4 (07:28→19:31)
[2020-12-06] MEDS: predniSONE 10 MG TAB PO SCH (09:15)
[2020-12-06] MEDS: ASPIRIN 81 MG PO SCH (09:15)
[2020-12-06] MEDS: MELOXICAM 7.5 MG TAB PO SCH (09:15)
[2020-12-06] MEDS: MECLIZINE 12.5 MG TAB PO SCH ×3 (09:15→22:35)
[2020-12-06] MEDS: guaiFENesin 600 MG TABLET.ER PO SCH ×2 (09:15→22:33)
[2020-12-06] MEDS: NIFEdipine XL 30 MG TAB.ER.24 PO SCH ×2 (09:15→22:34)
[2020-12-06] MEDS: LINEZOLID 600 MG TAB PO SCH ×2 (09:15→22:35)
[2020-12-06] MEDS: CHOLECALCIFEROL 25 MCG (1000 IU) TABLET PO SCH (09:15)
[2020-12-06] MEDS: DOCUSATE 100 MG CAP PO SCH ×2 (09:15→22:33)
[2020-12-06] MEDS: BENZONATATE 100 MG CAP PO SCH ×3 (09:15→22:34)
[2020-12-06] MEDS: ENOXAPARIN 40 MG/0.4 ML SYRINGE SQ SCH (09:16)
[2020-12-06] MEDS: FAMOTIDINE 20 MG TAB PO SCH ×2 (09:16→22:34)
[2020-12-06] MEDS: METOPROLOL TARTRATE 12.5 MG TAB PO SCH ×2 (09:16→22:33)
[2020-12-06] MEDS ORDERED: MAGNESIUM CITRATE 296 ML BOTTLE PO ONE (11:15)
--- NOTE | 2020-12-06 13:56 | P.PN ---
Subjective Progress Note Date: 12/06/20 CHIEF COMPLAINT: Rectal pain HISTORY OF PRESENT ILLNESS: Patient seen and examined with Dr. Alatorre. Panchito pandey is followed in regards to rectal pain and constipation. Patient refused the citrate of mag yesterday. Patient is reporting having bowel movements that are formed. She does report some improvement in her rectal pain. She is on a regular diet. Afebrile. No new labs for today Abdominal x-ray large stool burden and severe fecal impaction with rectum distended up to 10.3 cm wide with stool. Patient is at risk for ischemic stercoral colitis from the excessive abnormal rectal distention. Fecal disimpaction advise. Manual this impaction may be necessary given the amount of solid stool. X-ray reviewed with Dr. Alatorre PHYSICAL EXAM: VITAL SIGNS: Reviewed. GENERAL: Well-developed in no acute distress. HEENT: No sclera icterus. Extraocular movements grossly intact. Moist buccal mucosa. Head is atraumatic, normocephalic. ABDOMEN: Soft. Nondistended. NEUROLOGIC: Alert and oriented. Cranial nerves II through XII grossly intact. ASSESSMENT: 1. Rectal fecal impaction 2. Constipation PLAN: -Patient is now agreeable to taking the citrate of mag -Continue supportive care Physician Wet Process Operator note has been reviewed by physician. Signing provider agrees with the documented findings, assessment, and plan of care. Objective - Vital Signs Vital signs: Vital Signs Temp 97.3 F L 12/06/20 08:00 Pulse 77 12/06/20 11:52 Resp 16 12/06/20 11:52 BP 116/63 12/06/20 08:00 Pulse Ox 98 12/06/20 08:00 Intake & Output 12/05/20 12/06/20 12/06/20 18:59 06:59 18:59 Intake Total 960 Output Total 200 200 Balance -200 -200 960 Intake: Oral 960 Output: Urine 200 200 Other: Voiding Method Indwelling Catheter Indwelling Catheter Indwelling Catheter # Bowel Movements 1 - Labs CBC & Chem 7: 12/05/20 06:47 12/05/20 06:47
--- NOTE | 2020-12-06 14:22 | P.PN ---
Subjective Progress Note Date: 12/06/20 Principal diagnosis: Acute on chronic hypoxic respiratory failure related to bilateral pneumonia. This is a 75-year-old female that is transferred down from [facility]. She lives [place] in the [facility] area. The patient was recently diagnosed with a urinary tract infection and pneumonia. She was also diagnosed with sepsis and placed on oxygen at 3 L. Typically she is not on oxygen therapy. The patient was transferred down to for further management and evaluation. Her complaints include primarily shortness of breath, and cough. She's not producing much or any phlegm. She denies any chest pain. She also denies any nausea, vomiting, or diarrhea. She denied any fever or chills. She did recently fall, and injured her back. Apparently there were no fractures noted. Currently, her chest x-ray showing diffuse bilateral infiltrates. Her primary care provider is Dr. Darcy Araujo. Chest x-ray showed bilateral infiltrates, right greater than left. Her COVID 19 testing was negative. Her white count was 8.1 down from 13.3, white count 10.3, hematocrit 34.1, and platelet count 314,000. Sodium was 139, potassium 5.1, chloride 107, CO2 24, anion gap 8, BUN 16, creatinine 0.37. Her urine was yellow and cloudy with a specific gravity 1.037. Her leukocyte esterase test was moderately positive with 20 WBCs, and rare bacteria. Currently, she is on vancomycin and also Zosyn. Culture data including blood sampling, sputum, and urine are either pending or negative. Clinically, she was requiring 10 L high flow nasal cannula for saturations between 93-97%. She did not appear to have any significant distress. Progress note dated 11/22/2020. 75-year-old female that we saw yesterday in consultation. She was transferred down from [facility], with urinary tract infection and pneumonia. Currently, she is on 10 L high flow nasal O2. Today, she complains mostly of nasal congestion and stuffiness. We recommended some Flonase nasal spray for that. In addition, because of her diffuse bilateral infiltrates, we went ahead and ordered a CT angiogram. Her white count is 12.3, hemoglobin 9.5, hematocrit 34.4, and platelet count 313,000. Sodium is 144, potassium 4.3, chlorides 110, CO2 26, anion gap 8, BUN and creatinine of 20 and 0.5. Her urinalysis from yesterday shows a urine to be yellow and cloudy, with moderate positive leuko cyte esterase, 20 WBCs, and rare bacteria. Coronavirus testing was negative although she did have COVID 19 in the past. Current temperature is 98.1, heart rate 80, respiratory rate 16, blood pressure 107/66, with a mean of 79, and saturations are 93% 10 L high flow nasal O2. Patient is seen today 11/23/2020 in follow-up on the regular medical floor. She is currently sitting up in a chair at the bedside. Awake and alert in no acute distress. Maintaining O2 saturations up to 100% on 15 L nonrebreather mask. She's afebrile. Tachycardic. White count 14.6. Hemoglobin 10.0. Sodium 141. Potassium 4.1. Creatinine 0.5. She remains on bronchodilators, insulin. Antibiotics in the form of Zosyn. The patient is seen today 11/24/2020 in follow-up on the regular medical floor. She is currently sitting up in bed. Breathing a bit easier today compared to yesterday. Still requiring 10 L high flow nasal cannula. Urine culture revealed no growth. White count 11.0. Hemoglobin 9.7. Sodium 139. Potassium 3.8. Creatinine 0.4. Remains on bronchodilators, prednisone. Antibiotics in t he form of Zosyn. The patient is seen today 11/25/2020 in follow-up on the regular medical floor. She is currently resting comfortably in bed. Breathing easier today compared to yesterday. Currently on 8 L high flow nasal cannula. She's afebrile. Hemodynamically stable. White count 9.6. Hemoglobin 10.1. Sodium 138. Potassium 4.1. Creatinine 0.39. She remains on DuoNeb inhalations, prednisone. Lovenox for DVT prophylaxis. Antibiotics in the form of Zosyn. Urine culture revealed no growth. On today's evaluation of 11/28/2020 the patient remains on 6 L of oxygen by nasal cannula. Chest x-ray was done yesterday and showed persistent bilateral areas of acute infiltration/chronic infiltration and she does have baseline cardiomegaly and baseline ILD related to her systemic sclerosis. Noted the patient's older CAT scan of the chest also showed chronic ILD consistent with interstitial lung disease from connective tissue disease disorder. For now, the sputum is also positive for MRSA and the patient is currently on vancomycin. She is weak. She is quite debilitated. Her most recent CAT scan of the chest that was done on 11/22/2020. Indicated the possibility of progression of the diffuse bilateral groundglass pulmonary opacities. There was no evidence of any pulmonary embolism. There was small to moderate-sized Lymph Nodes along with Some Mild Cardiomegaly and T12 Compression Fracture of the Spine with a 30% Height Loss. In Terms of Her Scleroderma and ILD, the Patient Remains on CellCept and She Has Also Completed a Prednisone Burst Taper. CellCept Is Being Given a Dose of 500 Mg by Mouth 3 Times A Day. On 11/29/2020 the patient is on oxygen and she is currently at 6 L per minute nasal cannula. No major change compared to yesterday. Overnight, she was stable and she did not have any new complaints. She is spending most of the time in bed. She remains on vancomycin regarding the MRSA that was cultured in the sputum. As mentioned earlier, she has ILD related to scleroderma and in addition she got infected with COVID 19 which ended up Attributing her respiratory failure and she developed ongoing persistent infiltrates and fibrotic changes in lung bases bilaterally following the Viral infection. No major swelling lower extremities. She is still on CellCept for now. She is also treated a prednisone burst taper. No altered mentation. The patient is seen today 11/30/2020 and follow-up on the regular medical floor. She is currently sitting up in a chair at the bedside. Awake and alert in no acute distress. Earlier this morning she had issues with desaturation on 6 L and required Ventimask placement. She is up to 95-99%. She'll be transitioned back to 6 L high flow nasal cannula. No worsening shortness of breath, cough or congestion. Chest x-ray continues to show persistent bilateral area areas of acute infiltration on background ILD and COPD. Possible ARDS. No significant improvement. Sputum culture from back on the was positive for MRSA and Lorrie. She remains on vancomycin. Continued on bronchodilators, prednisone taper. Lovenox for DVT prophylaxis. Remains on CellCept for her scleroderma and ILD The patient is seen today 12/01/2020 in follow-up on the regular medical floor. She is currently sitting up at the bedside with physical therapy on standby. She is awake and alert in no acute distress. Currently on 6 L high flow nasal cannula. No worsening shortness of breath, cough or congestion. Still dyspneic with minimal conversation. Sputum culture was positive for MRSA and Lorrie. Sodium 139. Potassium 3.6. Creatinine 0.45. Currently on Zyvox. Remains on bronchodilators him a prednisone taper. Needs increased encouragement regarding nutrition and activity. Lovenox for DVT prophylaxis. The patient is seen today 12/02/2020 in follow-up on the regular medical floor. She is currently sitting up in chair at the bedside, working with physical therapy. She is breathing easier today compared to yesterday. Currently on 8 L high flow nasal cannula. She remains on bronchodilators. Prednisone. Zyvox. 12/03/2020 I'm seeing the patient for a follow-up. The patient is on oxygen she is currently on 7 L of oxygen by nasal cannula with a pulse of 77%. She is afebrile. No new complaints patient is working with physical therapy. She is trying to advance her diet. she is undergoing a CAT scan of the abdomen that showed rectal fecal impaction underwent L1 compression fractures and small bilateral pleural effusions. The pulmonary infiltrates in the lung bases have improved ankle inversion and there was moderate interstitial infiltrates involving the lung bases bilaterally along with a small hiatal hernia. No other issues for now. 12/04/2020, no change in her condition of the patient remains on oxygen at 7 L. She is still on Zyvox. No significant pain issues. She is having on and off difficulties in swallowing. No fever. No chills. No other significant events over the past 24 hours. We have stated that the patient may end up being a chronic oxygen dependent patient posterior Covid 19 pneumonia which caused significant amount of scarring and fibrosis and the lung bases. She is becoming progressively more debilitated. She will need rehabilitation. On 12/05/2020 patient seen in follow-up on medical floor, she is currently down to 5 L of oxygen, earlier her pulse ox on 8 L of oxygen was 100%, the nurse tried diming the FiO2 down to 2 L however her pulse ox came down to 86% and subsequently FiO2 was increased to 5 L of oxygen per nasal cannula, clinically patient seems to be breathing comfortably, no worsening dyspnea, she is complaining of constipation, and she is currently on her way down to have an abdominal x-ray done, worsening dyspnea cough or congestion. Her last chest x- ray was on 11/30/2020 showing continued diffuse bilateral patchy and confluent airspace disease. CT of the abdomen and pelvis revealed extensive lower lobe pulmonary infiltrates that were slightly improved compared to old CT chest 1 month ago, small pleural effusions. Significant constipation with the rectal fecal impaction. From pulmonary perspective patient remains on Mucinex, nebulized bronchodilators, Zyvox for MRSA pneumonia. She has had no fever or chills. On 12/06/2020 patient seen in follow-up on medical surgical floor, FiO2 is currently down to 4 L, she is pretty comfortable, minimal crackles at bilateral bases, no worsening dyspnea, cough or congestion. Abdomen is soft, patient was having issues with constipation, imaging revealed significant fecal impaction, with large stool burden and distention of the rectum, and a surgical consult ation was placed. Patient was given laxatives, and she stated that she had a large bowel movement this morning, she denies any abdominal pain, no nausea or vomiting, she is tolerating oral intake, she remains on Zyvox for MRSA in her sputum, she is on maintenance dose of prednisone 10 mg daily. From pulmonary perspective her status has been stable. No new chest x-rays. Today's labs showed white blood cell, 7.9, hemoglobin of 8.6, electrolytes and renal profile were unremarkable Objective - Vital Signs Vital signs: Vital Signs Temp 97.3 F L 12/06/20 08:00 Pulse 77 12/06/20 11:52 Resp 16 12/06/20 11:52 BP 116/63 12/06/20 08:00 Pulse Ox 98 12/06/20 08:00 Intake & Output 12/05/20 12/06/20 12/06/20 18:59 06:59 18:59 Intake Total 960 Output Total 200 200 Balance -200 -200 960 Intake: Oral 960 Output: Urine 200 200 Other: Voiding Method Indwelling Catheter Indwelling Catheter Indwelling Catheter # Bowel Movements 1 - Exam GENERAL EXAM: Alert, very pleasant, 75-year-old white female, currently on 4 L of oxygen comfortable in no apparent distress. HEAD: Normocephalic/atraumatic. EYES: Normal reaction of pupils, equal size. Conjunctiva pink, sclera white. NOSE: Clear with pink turbinates. THROAT: No erythema or exudates. NECK: No masses, no JVD, no thyroid enlargement, no adenopathy. CHEST: No chest wall deformity. Symmetrical expansion. LUNGS: Equal air entry with diffuse bibasilar crackles CVS: Regular rate and rhythm, normal S1 and S2, no gallops, no murmurs, no rubs ABDOMEN: Soft, nontender. No hepatosplenomegaly, normal bowel sounds, no guarding or rigidity. EXTREMITIES: No clubbing, no edema, no cyanosis, 2+ pulses and upper and lower extremities. MUSCULOSKELETAL: Muscle strength and tone normal. SPINE: No scoliosis or deformity SKIN: No rashes CENTRAL NERVOUS SYSTEM: Alert and oriented -3. No focal deficits, tone is normal in all 4 extremities. PSYCHIATRIC: Alert and oriented -3. Appropriate affect. Intact judgment and insight. - Labs CBC & Chem 7: 12/05/20 06:47 12/05/20 06:47 Assessment and Plan Plan: Assessment: 1 Acute hypoxemic respiratory failure secondary to bilateral pneumonia, c urrently on 6 L high flow nasal cannula. Patient has chronic ILD evident on previous CAT scan of the chest in 2014 2015. Subsequently, she got Covid 19 in July 2020 diffuse bilateral groundglass pulmonary infiltrates somewhat patchy and peripheral more so in the lower lobes. Follow-up CAT scan of the chest showed chronic fibrotic changes in both fibrotic and interstitial changes bilaterally from September 2020 and October 2020. 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 A superinfection with bacterial pneumonia is likely as the patient positive for MRSA and the patient is still on vancomycin. On 7 L of oxygen by nasal cannula the patient is currently on Zyvox. The follow-up CAT scan of the abdomen shows some limited improvement in the interstitial infiltrates in lung bases bilaterally. She is currently on vancomycin. She is quite debilitated and this is a very slow process in terms of recovery. 2 Urinary tract infection, rule out urosepsis. Chronic Panchal. 3 Prior history of COVID 19 pneumonitis. 4 Severe hypoxemic respiratory failure, rule out early acute respiratory distress syndrome (ARDS). 5 History of osteoarthritis. 6 History of pneumonia. 7 History of Raynaud's syndrome. 8 History of progressive systemic sclerosis (PSS). 9 History of varicose veins. 10 History of degenerative disc disease. 11 Lifelong nonsmoker. 12 rectal fecal impaction Plan: Continue current antibiotics, continue weaning FiO2, maintain aspiration precautions, follow-up chest x-ray in the morning, however clinically from pulmonary perspective patient has been stable, improving, no worsening dyspnea cough, hypoxia or congestion. I performed a history & physical examination of the patient and discussed their management with my nurse practitioner, Teagan Ceron. I reviewed the nurse practitioner's note and agree with the documented findings and plan of care. Lung sounds are positive for diffuse crackles. The findings and the impression was discussed with the patient. I attest to the documentation by the nurse practitioner. Time with Patient: Less than 30
[2020-12-06] MEDS ORDERED: LINEZOLID 600 MG TAB PO SCH (17:00)
--- NOTE | 2020-12-06 19:42 | P.PN ---
Subjective Progress Note Date: 12/06/20 Claribel Ruiz, is a 75-year-old female, who presented to [facility] emergency room with back pain and shortness of breath, she states that she fell about 1 week ago, patient was evaluated at [facility], computed tomography scan of the thoracic spine and the lumbar spine was done and revealed evidence of old T12 vertebral fracture without any evidence for new vertebral fractures, computed tomography scan also revealed extensive bilateral pulmonary infiltrates with bilateral pleural effusions, patient also had evidence of urinary tract infection, she had leukocytosis suggestive of sepsis, she was transferred to [facility] emergency room and then admitted to medical floor for further evaluation and treatment. Patient had several recent admissions to [facility], her last discharge was on 10/22/2020, over the last few months patient had evidence of Covid 19 pneumonia, she also had rectal pain and rectal bleeding and had surgery for hemorrhoids with Dr. Alatorre, she has underlying history of scleroderma, Raynaud's disease, hypertension, history of hyperlipidemia, history of osteoarthritis, history of osteoporosis, history of gastroesophageal reflux disease, history of chronic pain syndrome maintained on narcotics, history of pressure ulcer of the left buttock stage II, history of urinary retention requiring Panchal catheter placement patient was evaluated by urology on previous admission. Patient was evaluated at [facility] emergency room, her vital examination on presentation revealed a temperature of 97.8 pulse 108 respiration 18 blood pressure 102/67 pulse ox 94% on 3 L nasal cannula, her white blood count was 13.3 hemoglobin 10.4 platelet count 311 BUN 19 creatinine 0.44 Li virus PCR was negative. On 11/21/2020 patient was seen and examined on the medical floor she is alert and oriented 3 in no apparent distress she is complaining of stools incontinence patient stated that she is constantly having liquid stool coming out of the rectum she is also complaining of chest tightness and shortness of breath and occasional cough otherwise she denies any complaints. At this point will check stools for C. diff, consultation for gastroenterology was initiated. On 11/22/2020 patient was seen and examined on the medical floor he no apparent distress, she is complaining of shortness of breath she is maintained on oxygen via nasal cannula. Currently at 8 L per minute she has occasional cough she is maintained on IV antibiotic she was evaluated by pulmonary 80 scan angiogram of the chest was ordered however patient refused to have it so far. Otherwise she denies any complaints at this time there is no fever or chills no headache or dizziness no chest pain no nausea or vomiting no abdominal pain no diarrhea no blood in the stools no burning with urination no frequency or urgency and no hematuria. On 11/23/2020 patient was seen and examined on the medical floor she is somnolent arousable answer a few questions and returns to sleep she is maintained on oxygen via nasal cannula currently she is on 6 L/m she denies any chest pain denies any abdominal pain no nausea or vomiting she still has shortness of breath especially with any activity she is having some cough without any sputum production she is still having some stool incontinence. On 11/24/2020 patient was seen and examined on the medical floor she is still complaining of severe shortness of breath she is complaining of cough without sputum production there is no fever or chills no headache or dizziness no chest pain no palpitation no nausea or vomiting no abdominal pain no diarrhea no blood in the stools no burning with urination no frequency or urgency and no hematuria On 11/25/2020 patient is currently resting in bed currently working with physical therapy. Does state mild improvement. White blood cell improving to 9.6. Patient remains on IV Zosyn. Patient denies chest pain. Patient denies nausea vomiting or diarrhea. Patient denies any urinary burning or frequency. On 11/26/2020 patient was seen and examined on the medical floor she is alert and oriented 3 in no apparent distress she is still complaining of shortness of breath with any activity she is still complaining of leakage in the stools otherwise she denies any complaints at this time there is no fever or chills no headache or dizziness no chest pain no nausea or vomiting no abdominal pain no blood in the stools no burning with urination no frequency or urgency and no hematuria On 11/27/2020 patient is alert and oriented 3. Patient requesting Panchal catheter to be attempted to be removed. Voiding trial okay to be initiated per nursing staff. Patient was evaluated by urology services. Patient is having some shortness of breath today patient is on high flow 8 L improved. Patient denies chest pain. Patient denies any nausea or vomiting. Patient denies any urinary burning or frequency. On 11/28/2020 patient was seen and examined on the medical floor she is alert and oriented 3 in no apparent distress she is still complaining of shortness of breath and is maintained on oxygen 6 L via nasal cannula she has occasional cough no chest pain no palpitation no nausea or vomiting no abdominal pain no diarrhea no blood in the stools, patient still has Panchal catheter, plan is to discontinue Panchal catheter tomorrow in a.m. and monitor if patient can void. Sputum culture was positive for MRSA patient is maintained on IV vancomycin at this time. On 11/29/2020 patient was seen and examined on the medical floor she is alert and oriented 3 in no apparent distress there is no fever or chills no headache or dizziness, she is still complaining of shortness of breath, she is maintained on oxygen 4 L via nasal cannula at this time she still has episodes of cough, no nausea or vomiting no abdominal pain no diarrhea no blood in the stools Panchal catheter was removed this a.m. patient has not voided yet, will monitor closely On 11/30/2020 patient is alert and oriented 3 resting comfortably in bed. Per nursing staff patient had episode of desaturation likely secondary to anxiety. Pulmonary services are following repeat chest x-ray ordered. At this time patient is resting comfortably in bed. Patient is now on high flow oxygen 12L On 12/01/2020. Patient's alert and oriented 3 currently working with physical therapy. Patient oxygen requirement down to 8 L high flow. Patient is still complaining of rectal pain due to hemorrhoids. We'll consult surgical services for further evaluation. Patient denies any chest pain. Patient denies nausea vomiting or diarrhea. Patient denies any urinary burning or frequency. On 12/02/2020 patient was seen and examined on the medical floor she is alert and oriented 3 in no apparent distress she is complaining of rectal pain and lower abdominal pain surgery was consulted again and computed tomography scan of the abdomen and pelvis was ordered otherwise patient is feeling better her shortness of breath and cough has improved somewhat she is maintained on oxygen at 7 L via nasal cannula there is no fever or chills no headache or dizziness no chest pain she still has shortness of breath and cough no nausea or vomiting no diarrhea no blood in the stools no urinary symptoms Panchal catheter is in patient failed trial of discontinuing Panchal catheter due to urinary retention. On 12/03/2020 patient was seen and examined on the medical floor she is alert and oriented 3 in no apparent distress computed tomography scan of the abdomen and pelvis revealed evidence of constipation with fecal impaction patient was evaluated again by surgery and call likely was ordered otherwise patient is complaining of cough and shortness of breath otherwise no complaints, there is n o fever or chills no headache or dizziness no chest pain no shortness of breath no cough no nausea or vomiting no abdominal pain no diarrhea and no urinary symptoms On 12/04/2020 patient is alert and oriented 3 resting comfortably in bed. Patient did have large BM prior to getting GoLYTELY. Patient states some improvement right after bowel movement but states that pain has returned continue medical management to prevent constipation and fecal impaction. Patient denies chest pain. Patient remains on 8 L high flow. Pulmonary services following. Patient denies nausea vomiting or diarrhea. Patient denies any urinary burning or frequency. Panchal catheter remains in place. On 12/05/2020 patient was seen and examined on the medical floor, she is alert and oriented 3 in no distress there is no fever or chills no headache or dizziness no chest pain no shortness of breath no cough no nausea or vomiting, she is having some abdominal pain and discomfort Panchal catheter is in On 12/06/2020 patient was seen and examined on the medical floor she is alert and oriented 3 in no apparent distress she is complaining of occasional cough and lower abdominal discomfort otherwise she denies any complaints there is no fever or chills no headache or dizziness no chest pain her shortness of breath is improving no nausea or vomiting no diarrhea no blood in the stools Panchal catheter is in and is draining well Objective - Vital Signs Vital signs: Vital Signs Temp 98.2 F 12/06/20 16:28 Pulse 72 12/06/20 19:31 Resp 16 12/06/20 16:28 BP 123/67 12/06/20 16:28 Pulse Ox 96 12/06/20 16:28 Intake & Output 12/06/20 12/06/20 12/07/20 06:59 18:59 06:59 Intake Total 960 Output Total 200 Balance -200 960 Intake: Oral 960 Output: Urine 200 Other: Voiding Method Indwelling Catheter Indwelling Catheter # Bowel Movements 1 - Exam In general patient is alert and oriented 3 in no apparent distress HEENT head normocephalic and atraumatic Neck is supple no JVD no goiter no lymphadenopathy Chest exam reveals a scattered crackles bilaterally no wheezing Cardiac exam reveals regular heart sounds S1 and S2 with 2/6 systolic murmur in the left sternal border Abdomen is soft nontender no organomegaly with normal bowel sounds Extremity exam reveals 1+ edema Neurological examination reveals no gross focal deficit - Labs CBC & Chem 7: 12/05/20 06:47 12/05/20 06:47 Assessment and Plan Plan: 1. Bilateral pneumonia patient was evaluated at [facility] and transferred to [facility] she was started on IV antibiotics. She currently maintained on IV Zosyn. White blood cell improving. Pulmonary and infectious disease following. Sputum showing MRSA. Patient currently on Zyvox 2. Bilateral pleural effusion will recheck chest x-ray in a.m. 3. Acute on chronic hypoxic respiratory failure 4. Sepsis as evidenced by leukocytosis, tachycardia, patient received IV fluid boluses and currently she is maintained on IV antibiotics blood pressure is stable and will monitor closely . 5. Recent fall with back pain Will continue with current narcotic regimen and adjust as needed 6. Recent surgery for hemorrhoids, patient is still complaining of pain in the rectal area and stool incontinence. C. diff negative 7. Urinary retention, patient was evaluated by urology on previous admission, she is still has a Panchal catheter, will consult urology again for evaluation. Per urology services trial void prior to discharge follow-up outpatient in 12 weeks 8. Evidence of urinary tract infection Will continue with current antibiotics awaiting urine and blood culture results 9. Underlying history of scleroderma 10. Underlying history of hypertension 11. Underlying history of hyperlipidemia 12. Underlying history of chronic pain syndrome maintained on narcotics 13. Underlying history of gastroesophageal reflux disease. 14. Underlying history of anxiety disorder. 15. Fecal impaction. Surgical services were consulted a GoLYTELY order placed patient did have a large BM prior to administration of medication. Continue medical management to prevent further issues in regards to fecal impaction and constipation At this time patient is admitted to medical floor, she is started on IV antibiotics Home medications reviewed and reordered Check stools for C. diff, test was negative Pulmonary, GI services, infectious disease and urology services following Social work consult for possible rehab upon discharge PT OT consulted
[2020-12-06] MEDS: MORPHINE SULFATE ER 15 MG TABLET PO SCH (22:33)
[2020-12-06] MEDS: ASCORBIC ACID 500 MG TAB PO SCH (22:33)
[2020-12-06] MEDS: ATORVASTATIN 20 MG TAB PO SCH (22:33)
[2020-12-06] MEDS: MELATONIN 5 MG TABLET PO SCH (22:33)
[2020-12-06] MEDS: TAMSULOSIN 0.4 MG CAP.ER.24H PO SCH (22:34)
--- NOTE | 2020-12-06 23:10 | PN ---
PROGRESS NOTE DATE OF SERVICE: 12/06/2020 REASON FOR FOLLOWUP: MRSA pneumonia. INTERVAL HISTORY: The patient is currently afebrile. Patient is breathing slightly comfortably. No chest pain. Occasional cough. No abdominal pain. No diarrhea has been reported. PHYSICAL EXAMINATION: Blood pressure 128/64, pulse of 83, temperature 97.6. She is 96% on 4 L nasal cannula. General description is an elderly female lying in bed in no distress. Respiratory system: Unlabored breathing, clear to auscultation anteriorly. Heart S1, S2. Regular rate and rhythm. ABDOMEN: Soft, no tenderness. LABS: No new labs have been obtained today. DIAGNOSTIC IMPRESSION AND PLAN: Patient with MRSA pneumonia, currently covered with oral Zyvox. The patient continues to finish a two week course of therapy. Continue supportive care. MMODL / IJN: [id number] /
[2020-12-07] MEDS: GABAPENTIN 100 MG CAP PO SCH ×3 (06:19→21:01)
[2020-12-07] MEDS: IPRATROPIUM-ALBUTEROL 3 ML NEB INHALATION SCH ×4 (07:24→19:22)
--- NOTE | 2020-12-07 07:47 | XR ---
EXAMINATION TYPE: XR chest 1V portable DATE OF EXAM: 12/07/2020 Comparison: 11/30/2020 Clinical History: 75-year-old female pneumonia Findings: Multifocal patchy and confluent airspace opacities persist without significant change. Heart borderli ne in size. Impression: Continued multifocal patchy and confluent airspace disease.
[2020-12-07] MEDS: LINEZOLID 600 MG TAB PO SCH ×2 (09:42→21:12)
[2020-12-07] MEDS: BENZONATATE 100 MG CAP PO SCH ×3 (09:42→21:01)
[2020-12-07] MEDS: FAMOTIDINE 20 MG TAB PO SCH ×2 (09:42→21:01)
[2020-12-07] MEDS: ASPIRIN 81 MG PO SCH (09:42)
[2020-12-07] MEDS: CHOLECALCIFEROL 25 MCG (1000 IU) TABLET PO SCH (09:42)
[2020-12-07] MEDS: METOPROLOL TARTRATE 12.5 MG TAB PO SCH ×2 (09:42→21:02)
[2020-12-07] MEDS: predniSONE 10 MG TAB PO SCH (09:42)
[2020-12-07] MEDS: MECLIZINE 12.5 MG TAB PO SCH ×3 (09:42→21:12)
[2020-12-07] MEDS: guaiFENesin 600 MG TABLET.ER PO SCH ×2 (09:42→21:01)
[2020-12-07] MEDS: DOCUSATE 100 MG CAP PO SCH ×2 (09:42→21:01)
[2020-12-07] MEDS: MELOXICAM 7.5 MG TAB PO SCH (09:42)
[2020-12-07] MEDS: NIFEdipine XL 30 MG TAB.ER.24 PO SCH ×2 (09:43→21:13)
[2020-12-07] MEDS: ENOXAPARIN 40 MG/0.4 ML SYRINGE SQ SCH (09:43)
[2020-12-07 10:17] LABS: Basophils # (A) 0.06 X 10*3/uL (0.00-0.10); Basophils % (A) 0.8 %; Eosinophils # (A) 0.55 X 10*3/uL (0.04-0.35); Eosinophils % (A) 7.4 %; HCT 28.8 % (37.2-46.3); HGB 8.4 g/dL (12.0-15.0); Lymphocytes # (A) 2.16 X 10*3/uL (0.90-5.00); MCH 28.9 pg (27.0-32.0); MCHC 29.2 g/dL (32.0-37.0); Mean Platelet Volume 9.5 fL (9.5-12.2); Monocytes % (A) 9.4 %; Neutrophils # (A) 3.93 X 10*3/uL (1.80-7.70); Neutrophils % (A) 52.9 %; Platelet Count 383 X 10*3/uL (140-440); RBC 2.91 X 10*6/uL (4.10-5.20); RDW 15.3 % (11.5-14.5); WBC 7.44 X 10*3/uL (4.50-10.00)
[2020-12-07 11:05] LABS: Albumin 3.4 g/dL (3.80-4.90); Albumin/Globulin Ratio 2.43 (1.60-3.17); Anion Gap 8.1 mmol/L (4.00-12.00); Carbon Dioxide 28.9 mmol/L (21.6-31.8); Globulin 1.4 g/dL (1.6-3.3); Potassium 4.3 mmol/L (3.5-5.5); Total Bilirubin 0.2 mg/dL (0.3-1.2); Total Protein 4.8 g/dL (6.2-8.2)
[2020-12-07] MEDS ORDERED: MAGNESIUM CITRATE 296 ML BOTTLE PO ONE (14:15)
--- NOTE | 2020-12-07 14:18 | P.PN ---
Subjective Progress Note Date: 12/07/20 Principal diagnosis: Acute on chronic hypoxic respiratory failure related to bilateral pneumonia. This is a 75-year-old female that is transferred down from [facility]. She lives up in the [facility] area. The patient was recently diagnosed with a urinary tract infection and pneumonia. She was also diagnosed with sepsis and placed on oxygen at 3 L. Typically she is not on oxygen therapy. The patient was transferred down to for further management and evaluation. Her complaints include primarily shortness of breath, and cough. She's not producing much or any phlegm. She denies any chest pain. She also denies any nausea, vomiting, or diarrhea. She denied any fever or chills. She did recently fall, and injured her back. Apparently there were no fractures noted. Currently, her chest x-ray showing diffuse bilateral infiltrates. Her primary care provider is Dr. Darcy Araujo. Chest x-ray showed bilateral infiltrates, right greater than left. Her COVID 19 testing was negative. Her white count was 8.1 down from 13.3, white count 10.3, hematocrit 34.1, and platelet count 314,000. Sodium was 139, potassium 5.1, chloride 107, CO2 24, anion gap 8, BUN 16, creatinine 0.37. Her urine was yellow and cloudy with a specific gravity 1.037. Her leukocyte esterase test was moderately positive with 20 WBCs, and rare bacteria. Currently, she is on vancomycin and also Zosyn. Culture data including blood sampling, sputum, and urine are either pending or negative. Clinically, she was requiring 10 L high flow nasal cannula for saturations between 93-97%. She did not appear to have any significant distress. Progress note dated 11/22/2020. 75-year-old female that we saw yesterday in consultation. She was transferred down from [facility], with urinary tract infection and pneumonia. Currently, she is on 10 L high flow nasal O2. Today, she complains mostly of nasal congestion and stuffiness. We recommended some Flonase nasal spray for that. In addition, because of her diffuse bilateral infiltrates, we went ahead and ordered a CT angiogram. Her white count is 12.3, hemoglobin 9.5, hematocrit 34.4, and platelet count 313,000. Sodium is 144, potassium 4.3, chlorides 110, CO2 26, anion gap 8, BUN and creatinine of 20 and 0.5. Her urinalysis from yesterday shows a urine to be yellow and cloudy, with moderate positive leuko cyte esterase, 20 WBCs, and rare bacteria. Coronavirus testing was negative although she did have COVID 19 in the past. Current temperature is 98.1, heart rate 80, respiratory rate 16, blood pressure 107/66, with a mean of 79, and saturations are 93% 10 L high flow nasal O2. Patient is seen today 11/23/2020 in follow-up on the regular medical floor. She is currently sitting up in a chair at the bedside. Awake and alert in no acute distress. Maintaining O2 saturations up to 100% on 15 L nonrebreather mask. She's afebrile. Tachycardic. White count 14.6. Hemoglobin 10.0. Sodium 141. Potassium 4.1. Creatinine 0.5. She remains on bronchodilators, insulin. Antibiotics in the form of Zosyn. The patient is seen today 11/24/2020 in follow-up on the regular medical floor. She is currently sitting up in bed. Breathing a bit easier today compared to yesterday. Still requiring 10 L high flow nasal cannula. Urine culture revealed no growth. White count 11.0. Hemoglobin 9.7. Sodium 139. Potassium 3.8. Creatinine 0.4. Remains on bronchodilators, prednisone. Antibiotics in t he form of Zosyn. The patient is seen today 11/25/2020 in follow-up on the regular medical floor. She is currently resting comfortably in bed. Breathing easier today compared to yesterday. Currently on 8 L high flow nasal cannula. She's afebrile. Hemodynamically stable. White count 9.6. Hemoglobin 10.1. Sodium 138. Potassium 4.1. Creatinine 0.39. She remains on DuoNeb inhalations, prednisone. Lovenox for DVT prophylaxis. Antibiotics in the form of Zosyn. Urine culture revealed no growth. On today's evaluation of 11/28/2020 the patient remains on 6 L of oxygen by nasal cannula. Chest x-ray was done yesterday and showed persistent bilateral areas of acute infiltration/chronic infiltration and she does have baseline cardiomegaly and baseline ILD related to her systemic sclerosis. Noted the patient's older CAT scan of the chest also showed chronic ILD consistent with interstitial lung disease from connective tissue disease disorder. For now, the sputum is also positive for MRSA and the patient is currently on vancomycin. She is weak. She is quite debilitated. Her most recent CAT scan of the chest that was done on 11/22/2020. Indicated the possibility of progression of the diffuse bilateral groundglass pulmonary opacities. There was no evidence of any pulmonary embolism. There was small to moderate-sized Lymph Nodes along with Some Mild Cardiomegaly and T12 Compression Fracture of the Spine with a 30% Height Loss. In Terms of Her Scleroderma and ILD, the Patient Remains on CellCept and She Has Also Completed a Prednisone Burst Taper. CellCept Is Being Given a Dose of 500 Mg by Mouth 3 Times A Day. On 11/29/2020 the patient is on oxygen and she is currently at 6 L per minute nasal cannula. No major change compared to yesterday. Overnight, she was stable and she did not have any new complaints. She is spending most of the time in bed. She remains on vancomycin regarding the MRSA that was cultured in the sputum. As mentioned earlier, she has ILD related to scleroderma and in addition she got infected with COVID 19 which ended up Attributing her respiratory failure and she developed ongoing persistent infiltrates and fibrotic changes in lung bases bilaterally following the Viral infection. No major swelling lower extremities. She is still on CellCept for now. She is also treated a prednisone burst taper. No altered mentation. The patient is seen today 11/30/2020 and follow-up on the regular medical floor. She is currently sitting up in a chair at the bedside. Awake and alert in no acute distress. Earlier this morning she had issues with desaturation on 6 L and required Ventimask placement. She is up to 95-99%. She'll be transitioned back to 6 L high flow nasal cannula. No worsening shortness of breath, cough or congestion. Chest x-ray continues to show persistent bilateral area areas of acute infiltration on background ILD and COPD. Possible ARDS. No significant improvement. Sputum culture from back on the was positive for MRSA and Lorrie. She remains on vancomycin. Continued on bronchodilators, prednisone taper. Lovenox for DVT prophylaxis. Remains on CellCept for her scleroderma and ILD The patient is seen today 12/01/2020 in follow-up on the regular medical floor. She is currently sitting up at the bedside with physical therapy on standby. She is awake and alert in no acute distress. Currently on 6 L high flow nasal cannula. No worsening shortness of breath, cough or congestion. Still dyspneic with minimal conversation. Sputum culture was positive for MRSA and Lorrie. Sodium 139. Potassium 3.6. Creatinine 0.45. Currently on Zyvox. Remains on bronchodilators him a prednisone taper. Needs increased encouragement regarding nutrition and activity. Lovenox for DVT prophylaxis. The patient is seen today 12/02/2020 in follow-up on the regular medical floor. She is currently sitting up in chair at the bedside, working with physical therapy. She is breathing easier today compared to yesterday. Currently on 8 L high flow nasal cannula. She remains on bronchodilators. Prednisone. Zyvox. 12/03/2020 I'm seeing the patient for a follow-up. The patient is on oxygen she is currently on 7 L of oxygen by nasal cannula with a pulse of 77%. She is afebrile. No new complaints patient is working with physical therapy. She is trying to advance her diet. she is undergoing a CAT scan of the abdomen that showed rectal fecal impaction underwent L1 compression fractures and small bilateral pleural effusions. The pulmonary infiltrates in the lung bases have improved ankle inversion and there was moderate interstitial infiltrates involving the lung bases bilaterally along with a small hiatal hernia. No other issues for now. 12/04/2020, no change in her condition of the patient remains on oxygen at 7 L. She is still on Zyvox. No significant pain issues. She is having on and off difficulties in swallowing. No fever. No chills. No other significant events over the past 24 hours. We have stated that the patient may end up being a chronic oxygen dependent patient posterior Covid 19 pneumonia which caused significant amount of scarring and fibrosis and the lung bases. She is becoming progressively more debilitated. She will need rehabilitation. On 12/05/2020 patient seen in follow-up on medical floor, she is currently down to 5 L of oxygen, earlier her pulse ox on 8 L of oxygen was 100%, the nurse tried diming the FiO2 down to 2 L however her pulse ox came down to 86% and subsequently FiO2 was increased to 5 L of oxygen per nasal cannula, clinically patient seems to be breathing comfortably, no worsening dyspnea, she is complaining of constipation, and she is currently on her way down to have an abdominal x-ray done, worsening dyspnea cough or congestion. Her last chest x- ray was on 11/30/2020 showing continued diffuse bilateral patchy and confluent airspace disease. CT of the abdomen and pelvis revealed extensive lower lobe pulmonary infiltrates that were slightly improved compared to old CT chest 1 month ago, small pleural effusions. Significant constipation with the rectal fecal impaction. From pulmonary perspective patient remains on Mucinex, nebulized bronchodilators, Zyvox for MRSA pneumonia. She has had no fever or chills. On 12/06/2020 patient seen in follow-up on medical surgical floor, FiO2 is currently down to 4 L, she is pretty comfortable, minimal crackles at bilateral bases, no worsening dyspnea, cough or congestion. Abdomen is soft, patient was having issues with constipation, imaging revealed significant fecal impaction, with large stool burden and distention of the rectum, and a surgical consult ation was placed. Patient was given laxatives, and she stated that she had a large bowel movement this morning, she denies any abdominal pain, no nausea or vomiting, she is tolerating oral intake, she remains on Zyvox for MRSA in her sputum, she is on maintenance dose of prednisone 10 mg daily. From pulmonary perspective her status has been stable. No new chest x-rays. Today's labs showed white blood cell, 7.9, hemoglobin of 8.6, electrolytes and renal profile were unremarkable On 12/07/2020 patient seen in follow-up on medical surgical floor, she is currently working with physical therapy, she is weak and fatigued, and requires frequent rest periods with any exertion, she sits up on the edge of the bed, she is currently on 4 L of oxygen, her breathing has been stable, no worsening, no worsening in cough, chest congestion, lung sounds reveal some minimal crackles at the bases, she has had no fever or chills, she remains on Zyvox for MRSA pneumonia. Today's chest x-ray has been reviewed showing multifocal patchy and confluent airspace opacities without significant change, but clinically patient has been stable, no abdominal pain, she has been given multiple laxatives, and patient has had large bowel movements this morning and yesterday she is tolerating oral intake. Objective - Vital Signs Vital signs: Vital Signs Temp 98.2 F 12/07/20 08:00 Pulse 64 12/07/20 11:05 Resp 16 12/07/20 08:00 BP 134/70 12/07/20 08:00 Pulse Ox 92 L 12/07/20 08:00 Intake & Output 12/06/20 12/07/20 12/07/20 18:59 06:59 18:59 Intake Total 960 480 Output Total 1000 Balance 960 -1000 480 Intake: Oral 960 480 Output: Urine 1000 Other: Voiding Method Indwelling Catheter Indwelling Catheter Indwelling Catheter # Bowel Movements 2 - Exam GENERAL EXAM: Alert, very pleasant, 75-year-old white female, currently on 4 L of oxygen comfortable in no apparent distress. HEAD: Normocephalic/atraumatic. EYES: Normal reaction of pupils, equal size. Conjunctiva pink, sclera white. NOSE: Clear with pink turbinates. THROAT: No erythema or exudates. NECK: No masses, no JVD, no thyroid enlargement, no adenopathy. CHEST: No chest wall deformity. Symmetrical expansion. LUNGS: Equal air entry with diffuse bibasilar crackles CVS: Regular rate and rhythm, normal S1 and S2, no gallops, no murmurs, no rubs ABDOMEN: Soft, nontender. No hepatosplenomegaly, normal bowel sounds, no guarding or rigidity. EXTREMITIES: No clubbing, no edema, no cyanosis, 2+ pulses and upper and lower extremities. MUSCULOSKELETAL: Muscle strength and tone normal. SPINE: No scoliosis or deformity SKIN: No rashes CENTRAL NERVOUS SYSTEM: Alert and oriented -3. No focal deficits, tone is normal in all 4 extremities. PSYCHIATRIC: Alert and oriented -3. Appropriate affect. Intact judgment and insight. - Labs CBC & Chem 7: 12/07/20 06:55 12/07/20 06:55 Labs: Abnormal Lab Results - Last 24 Hours (Table) 12/07/20 12/07/20 Range/Units 06:55 06:55 RBC 2.91 L (4.10-5.20) X 10*6/uL Hgb 8.4 L (12.0-15.0) g/dL Hct 28.8 L (37.2-46.3) % MCV 99.0 H (80.0-97.0) fL MCHC 29.2 L (32.0-37.0) g/dL RDW 15.3 H (11.5-14.5) % Eosinophils # 0.55 H (0.04-0.35) X 10*3/uL Creatinine 0.5 L (0.6-1.5) mg/dL BUN/Creatinine Ratio 22.00 H (12.00-20.00) Ratio Total Bilirubin 0.2 L (0.3-1.2) mg/dL Total Protein 4.8 L (6.2-8.2) g/dL Albumin 3.40 L (3.80-4.90) g/dL Globulin 1.4 L (1.6-3.3) g/dL Assessment and Plan Plan: Assessment: 1 Acute hypoxemic respiratory failure secondary to bilateral pneumonia related to MRSA currently on 4 L high flow nasal cannula. Patient has chronic ILD evident on previous CAT scan of the chest in 2014 2015. Subsequently, she got Covid 19 in July 2020 diffuse bilateral groundglass pulmonary infiltrates somewhat patchy and peripheral more so in the lower lobes. Follow-up CAT scan of the chest showed chronic fibrotic changes in both fibrotic and interstitial changes bilaterally from September 2020 and October 2020. 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 A superinfection with bacterial pneumonia is likely as the patient positive for MRSA and the patient is still on vancomycin. On 7 L of oxygen by nasal cannula the patient is currently on Zyvox. The follow-up CAT scan of the abdomen shows some limited improvement in the interstitial infiltrates in lung bases bilaterally. She is currently on vancomycin. She is quite debilitated and this is a very slow process in terms of recovery. 2 Urinary tract infection, rule out urosepsis. Chronic Panchal. 3 Prior history of COVID 19 pneumonitis. 4 Severe hypoxemic respiratory failure, rule out early acute respiratory distress syndrome (ARDS). 5 History of osteoarthritis. 6 History of pneumonia. 7 History of Raynaud's syndrome. 8 History of progressive systemic sclerosis (PSS). 9 History of varicose veins. 10 History of degenerative disc disease. 11 Lifelong nonsmoker. 12 rectal fecal impaction Plan: Continue weaning FiO2 to keep O2 sat at or above 90%, breathing doss she stable, no worsening dyspnea, no cough or chest congestion, continue maintenance dose of oral prednisone, she's had no acute events overnight, she is on Zyvox for MRSA pneumonia, today's chest x-ray reviewed, showing stable bilateral pneumonia, stable in appearance. Discharge planning is in progress for placement to [facility]CF for subacute rehab after discharge. From pulmonary perspective patient is stable for discharge when cleared by medicine I performed a history & physical examination of the patient and discussed their management with my nurse practitioner, Teagan Ceron. I reviewed the nurse practitioner's note and agree with the documented findings and plan of care. Lung sounds are positive for diffuse crackles. The findings and the impression was discussed with the patient. I attest to the documentation by the nurse practitioner. Time with Patient: Less than 30
--- NOTE | 2020-12-07 14:55 | P.PN ---
Subjective Progress Note Date: 12/07/20 CHIEF COMPLAINT: Rectal pain HISTORY OF PRESENT ILLNESS: Patient seen and examined with Dr. Alatorre. Panchito pandey is followed in regards to rectal pain and constipation. Patient did have a large bowel movement last night and 4 smaller bowel movements this morning. She is still complaining of rectal pain. Afebrile. PHYSICAL EXAM: VITAL SIGNS: Reviewed. GENERAL: Well-developed in no acute distress. HEENT: No sclera icterus. Extraocular movements grossly intact. Moist buccal mucosa. Head is atraumatic, normocephalic. ABDOMEN: Soft. Nondistended. NEUROLOGIC: Alert and oriented. Cranial nerves II through XII grossly intact. ASSESSMENT: 1. Rectal fecal impaction 2. Constipation PLAN: -Ordered another bottle of citrate of magnesia for constipation -Continue supportive care -Anticipating discharge possibly tomorrow Physician [employer] Auditor note has been reviewed by physician. Signing provider agrees with the documented findings, assessment, and plan of care. Objective - Vital Signs Vital signs: Vital Signs Temp 98.2 F 12/07/20 08:00 Pulse 64 12/07/20 11:05 Resp 16 12/07/20 08:00 BP 134/70 12/07/20 08:00 Pulse Ox 92 L 12/07/20 08:00 Intake & Output 12/06/20 12/07/20 12/07/20 18:59 06:59 18:59 Intake Total 960 480 Output Total 1000 Balance 960 -1000 480 Intake: Oral 960 480 Output: Urine 1000 Other: Voiding Method Indwelling Catheter Indwelling Catheter Indwelling Catheter # Bowel Movements 2 - Labs CBC & Chem 7: 12/07/20 06:55 12/07/20 06:55 Labs: Abnormal Lab Results - Last 24 Hours (Table) 12/07/20 12/07/20 Range/Units 06:55 06:55 RBC 2.91 L (4.10-5.20) X 10*6/uL Hgb 8.4 L (12.0-15.0) g/dL Hct 28.8 L (37.2-46.3) % MCV 99.0 H (80.0-97.0) fL MCHC 29.2 L (32.0-37.0) g/dL RDW 15.3 H (11.5-14.5) % Eosinophils # 0.55 H (0.04-0.35) X 10*3/uL Creatinine 0.5 L (0.6-1.5) mg/dL BUN/Creatinine Ratio 22.00 H (12.00-20.00) Ratio Total Bilirubin 0.2 L (0.3-1.2) mg/dL Total Protein 4.8 L (6.2-8.2) g/dL Albumin 3.40 L (3.80-4.90) g/dL Globulin 1.4 L (1.6-3.3) g/dL
--- NOTE | 2020-12-07 15:12 | P.PN ---
Subjective Progress Note Date: 12/07/20 Claribel Ruiz, is a 75-year-old female, who presented to [facility] emergency room with back pain and shortness of breath, she states that she fell about 1 week ago, patient was evaluated at [facility], computed tomography scan of the thoracic spine and the lumbar spine was done and revealed evidence of old T12 vertebral fracture without any evidence for new vertebral fractures, computed tomography scan also revealed extensive bilateral pulmonary infiltrates with bilateral pleural effusions, patient also had evidence of urinary tract infection, she had leukocytosis suggestive of sepsis, she was transferred to [facility] emergency room and then admitted to medical floor for further evaluation and treatment. Patient had several recent admissions to [facility], her last discharge was on 10/22/2020, over the last few months patient had evidence of Covid 19 pneumonia, she also had rectal pain and rectal bleeding and had surgery for hemorrhoids with Dr. Alatorre, she has underlying history of scleroderma, Raynaud's disease, hypertension, history of hyperlipidemia, history of osteoarthritis, history of osteoporosis, history of gastroesophageal reflux disease, history of chronic pain syndrome maintained on narcotics, history of pressure ulcer of the left buttock stage II, history of urinary retention requiring Panchal catheter placement patient was evaluated by urology on previous admission. Patient was evaluated at [facility] emergency room, her vital examination on presentation revealed a temperature of 97.8 pulse 108 respiration 18 blood pressure 102/67 pulse ox 94% on 3 L nasal cannula, her white blood count was 13.3 hemoglobin 10.4 platelet count 311 BUN 19 creatinine 0.44 Li virus PCR was negative. On 11/21/2020 patient was seen and examined on the medical floor she is alert and oriented 3 in no apparent distress she is complaining of stools incontinence patient stated that she is constantly having liquid stool coming out of the rectum she is also complaining of chest tightness and shortness of breath and occasional cough otherwise she denies any complaints. At this point will check stools for C. diff, consultation for gastroenterology was initiated. On 11/22/2020 patient was seen and examined on the medical floor he no apparent distress, she is complaining of shortness of breath she is maintained on oxygen via nasal cannula. Currently at 8 L per minute she has occasional cough she is maintained on IV antibiotic she was evaluated by pulmonary 80 scan angiogram of the chest was ordered however patient refused to have it so far. Otherwise she denies any complaints at this time there is no fever or chills no headache or dizziness no chest pain no nausea or vomiting no abdominal pain no diarrhea no blood in the stools no burning with urination no frequency or urgency and no hematuria. On 11/23/2020 patient was seen and examined on the medical floor she is somnolent arousable answer a few questions and returns to sleep she is maintained on oxygen via nasal cannula currently she is on 6 L/m she denies any chest pain denies any abdominal pain no nausea or vomiting she still has shortness of breath especially with any activity she is having some cough without any sputum production she is still having some stool incontinence. On 11/24/2020 patient was seen and examined on the medical floor she is still complaining of severe shortness of breath she is complaining of cough without sputum production there is no fever or chills no headache or dizziness no chest pain no palpitation no nausea or vomiting no abdominal pain no diarrhea no blood in the stools no burning with urination no frequency or urgency and no hematuria On 11/25/2020 patient is currently resting in bed currently working with physical therapy. Does state mild improvement. White blood cell improving to 9.6. Patient remains on IV Zosyn. Patient denies chest pain. Patient denies nausea vomiting or diarrhea. Patient denies any urinary burning or frequency. On 11/26/2020 patient was seen and examined on the medical floor she is alert and oriented 3 in no apparent distress she is still complaining of shortness of breath with any activity she is still complaining of leakage in the stools otherwise she denies any complaints at this time there is no fever or chills no headache or dizziness no chest pain no nausea or vomiting no abdominal pain no blood in the stools no burning with urination no frequency or urgency and no hematuria On 11/27/2020 patient is alert and oriented 3. Patient requesting Panchal catheter to be attempted to be removed. Voiding trial okay to be initiated per nursing staff. Patient was evaluated by urology services. Patient is having some shortness of breath today patient is on high flow 8 L improved. Patient denies chest pain. Patient denies any nausea or vomiting. Patient denies any urinary burning or frequency. On 11/28/2020 patient was seen and examined on the medical floor she is alert and oriented 3 in no apparent distress she is still complaining of shortness of breath and is maintained on oxygen 6 L via nasal cannula she has occasional cough no chest pain no palpitation no nausea or vomiting no abdominal pain no diarrhea no blood in the stools, patient still has Panchal catheter, plan is to discontinue Panchal catheter tomorrow in a.m. and monitor if patient can void. Sputum culture was positive for MRSA patient is maintained on IV vancomycin at this time. On 11/29/2020 patient was seen and examined on the medical floor she is alert and oriented 3 in no apparent distress there is no fever or chills no headache or dizziness, she is still complaining of shortness of breath, she is maintained on oxygen 4 L via nasal cannula at this time she still has episodes of cough, no nausea or vomiting no abdominal pain no diarrhea no blood in the stools Panchal catheter was removed this a.m. patient has not voided yet, will monitor closely On 11/30/2020 patient is alert and oriented 3 resting comfortably in bed. Per nursing staff patient had episode of desaturation likely secondary to anxiety. Pulmonary services are following repeat chest x-ray ordered. At this time patient is resting comfortably in bed. Patient is now on high flow oxygen 12L On 12/01/2020. Patient's alert and oriented 3 currently working with physical therapy. Patient oxygen requirement down to 8 L high flow. Patient is still complaining of rectal pain due to hemorrhoids. We'll consult surgical services for further evaluation. Patient denies any chest pain. Patient denies nausea vomiting or diarrhea. Patient denies any urinary burning or frequency. On 12/02/2020 patient was seen and examined on the medical floor she is alert and oriented 3 in no apparent distress she is complaining of rectal pain and lower abdominal pain surgery was consulted again and computed tomography scan of the abdomen and pelvis was ordered otherwise patient is feeling better her shortness of breath and cough has improved somewhat she is maintained on oxygen at 7 L via nasal cannula there is no fever or chills no headache or dizziness no chest pain she still has shortness of breath and cough no nausea or vomiting no diarrhea no blood in the stools no urinary symptoms Panchal catheter is in patient failed trial of discontinuing Panchal catheter due to urinary retention. On 12/03/2020 patient was seen and examined on the medical floor she is alert and oriented 3 in no apparent distress computed tomography scan of the abdomen and pelvis revealed evidence of constipation with fecal impaction patient was evaluated again by surgery and call likely was ordered otherwise patient is complaining of cough and shortness of breath otherwise no complaints, there is n o fever or chills no headache or dizziness no chest pain no shortness of breath no cough no nausea or vomiting no abdominal pain no diarrhea and no urinary symptoms On 12/04/2020 patient is alert and oriented 3 resting comfortably in bed. Patient did have large BM prior to getting GoLYTELY. Patient states some improvement right after bowel movement but states that pain has returned continue medical management to prevent constipation and fecal impaction. Patient denies chest pain. Patient remains on 8 L high flow. Pulmonary services following. Patient denies nausea vomiting or diarrhea. Patient denies any urinary burning or frequency. Panchal catheter remains in place. On 12/05/2020 patient was seen and examined on the medical floor, she is alert and oriented 3 in no distress there is no fever or chills no headache or dizziness no chest pain no shortness of breath no cough no nausea or vomiting, she is having some abdominal pain and discomfort Panchal catheter is in On 12/06/2020 patient was seen and examined on the medical floor she is alert and oriented 3 in no apparent distress she is complaining of occasional cough and lower abdominal discomfort otherwise she denies any complaints there is no fever or chills no headache or dizziness no chest pain her shortness of breath is improving no nausea or vomiting no diarrhea no blood in the stools Panchal catheter is in and is draining well on 12/07/2020 she is alert and oriented 3. explained patient that she will be discharged to rehab tomorrow 12/08/2020. Patient will be discharged on Zyvox for 2 more weeks per ID. Patient did have a large BM yesterday with multiple BMs following. Patient reports that she feels improved after having bowel movement.patient currently on nasal cannula 4 L. Discussed with pulmonary team patient cleared for discharge. At this time patient denies chest pain. Patient denies nausea vomiting or diarrhea. Patient denies any urinary burning or frequency Objective - Vital Signs Vital signs: Vital Signs Temp 98.2 F 12/07/20 08:00 Pulse 64 12/07/20 11:05 Resp 16 12/07/20 08:00 BP 134/70 12/07/20 08:00 Pulse Ox 92 L 12/07/20 08:00 Intake & Output 12/06/20 12/07/20 12/07/20 18:59 06:59 18:59 Intake Total 960 480 Output Total 1000 Balance 960 -1000 480 Intake: Oral 960 480 Output: Urine 1000 Other: Voiding Method Indwelling Catheter Indwelling Catheter Indwelling Catheter # Bowel Movements 2 - Exam In general patient is alert and oriented 3 in no apparent distress HEENT head normocephalic and atraumatic Neck is supple no JVD no goiter no lymphadenopathy Chest exam reveals a scattered crackles bilaterally no wheezing Cardiac exam reveals regular heart sounds S1 and S2 with 2/6 systolic murmur in the left sternal border Abdomen is soft nontender no organomegaly with normal bowel sounds Extremity exam reveals 1+ edema Neurological examination reveals no gross focal deficit - Labs CBC & Chem 7: 12/07/20 06:55 12/07/20 06:55 Labs: Abnormal Lab Results - Last 24 Hours (Table) 12/07/20 12/07/20 Range/Units 06:55 06:55 RBC 2.91 L (4.10-5.20) X 10*6/uL Hgb 8.4 L (12.0-15.0) g/dL Hct 28.8 L (37.2-46.3) % MCV 99.0 H (80.0-97.0) fL MCHC 29.2 L (32.0-37.0) g/dL RDW 15.3 H (11.5-14.5) % Eosinophils # 0.55 H (0.04-0.35) X 10*3/uL Creatinine 0.5 L (0.6-1.5) mg/dL BUN/Creatinine Ratio 22.00 H (12.00-20.00) Ratio Total Bilirubin 0.2 L (0.3-1.2) mg/dL Total Protein 4.8 L (6.2-8.2) g/dL Albumin 3.40 L (3.80-4.90) g/dL Globulin 1.4 L (1.6-3.3) g/dL Assessment and Plan Plan: 1. Bilateral pneumonia patient was evaluated at [facility] and transferred to [facility] she was started on IV antibiotics. She currently maintained on IV Zosyn. White blood cell improving. Pulmonary and infectious disease following. Sputum showing MRSA. Patient currently on Zyvox 2. Bilateral pleural effusion 3. Acute on chronic hypoxic respiratory failure 4. Sepsis as evidenced by leukocytosis, tachycardia, patient received IV fluid boluses and currently she is maintained on IV antibiotics blood pressure is stable and will monitor closely .resolved 5. Recent fall with back pain Will continue with current narcotic regimen and adjust as needed 6. Recent surgery for hemorrhoids, patient is still complaining of pain in the rectal area and stool incontinence. C. diff negative 7. Urinary retention, patient was evaluated by urology on previous admission, she is still has a Panchal catheter, will consult urology again for evaluation. Per urology services trial void prior to discharge follow-up outpatient in 12 weeks 8. Evidence of urinary tract infection Will continue with current antibiotics awaiting urine and blood culture results 9. Underlying history of scleroderma 10. Underlying history of hypertension 11. Underlying history of hyperlipidemia 12. Underlying history of chronic pain syndrome maintained on narcotics 13. Underlying history of gastroesophageal reflux disease. 14. Underlying history of anxiety disorder. 15. Fecal impaction. resolved. Patient had large BM on 12/06/2020 At this time patient is admitted to medical floor, she is started on IV antibiotics Home medications reviewed and reordered Check stools for C. diff, test was negative Pulmonary, GI services, infectious disease and urology services following Social work consult for possible rehab upon discharge PT OT consulted anticipate discharge to rehab on 12/08/2020
[2020-12-07] MEDS: MELATONIN 5 MG TABLET PO SCH (21:01)
[2020-12-07] MEDS: ATORVASTATIN 20 MG TAB PO SCH (21:01)
[2020-12-07] MEDS: ASCORBIC ACID 500 MG TAB PO SCH (21:01)
[2020-12-07] MEDS: TAMSULOSIN 0.4 MG CAP.ER.24H PO SCH (21:01)
[2020-12-07] MEDS: MORPHINE SULFATE ER 15 MG TABLET PO SCH (21:02)
--- NOTE | 2020-12-08 01:56 | PN ---
PROGRESS NOTE DATE OF SERVICE: 12/07/2020 REASON FOR FOLLOWUP: MRSA pneumonia. INTERVAL HISTORY: The patient is currently afebrile. The patient is breathing comfortably. The patient denies having any chest pain or shortness of breath. Occasional cough. No nausea, no vomiting. No abdominal pain. No diarrhea. PHYSICAL EXAMINATION: Blood pressure 126/69, pulse of 72, temperature is 98. She is 93% on 4 L nasal cannula. General description is an elderly female lying in bed in no distress. Respiratory system: Unlabored breathing with decreased intensity in breath sounds. No wheeze. Heart S1, S2. Regular rate and rhythm. Abdomen soft, no tenderness. LABS: Hemoglobin 8.4, white count 7.44, BUN of 11, creatinine 0.5. DIAGNOSTIC IMPRESSION AND PLAN: Patient with MRSA pneumonia for which the patient is currently covered with oral Zyvox which will continue to finish a 2 week course of therapy. Continue supportive care. MMODL / IJN: [id number] /
[2020-12-08] MEDS: GABAPENTIN 100 MG CAP PO SCH ×2 (05:52→15:24)
[2020-12-08] MEDS: IPRATROPIUM-ALBUTEROL 3 ML NEB INHALATION SCH ×2 (08:51→12:05)
[2020-12-08] MEDS: MELOXICAM 7.5 MG TAB PO SCH (09:20)
[2020-12-08] MEDS: METOPROLOL TARTRATE 12.5 MG TAB PO SCH (09:20)
[2020-12-08] MEDS: predniSONE 10 MG TAB PO SCH (09:20)
[2020-12-08] MEDS: ASPIRIN 81 MG PO SCH (09:21)
[2020-12-08] MEDS: DOCUSATE 100 MG CAP PO SCH (09:21)
[2020-12-08] MEDS: FAMOTIDINE 20 MG TAB PO SCH (09:21)
[2020-12-08] MEDS: NIFEdipine XL 30 MG TAB.ER.24 PO SCH (09:21)
[2020-12-08] MEDS: CHOLECALCIFEROL 25 MCG (1000 IU) TABLET PO SCH (09:21)
[2020-12-08] MEDS: BENZONATATE 100 MG CAP PO SCH (09:21)
[2020-12-08] MEDS: LINEZOLID 600 MG TAB PO SCH (09:21)
[2020-12-08] MEDS: ENOXAPARIN 40 MG/0.4 ML SYRINGE SQ SCH (09:22)
[2020-12-08] MEDS: MECLIZINE 12.5 MG TAB PO SCH ×2 (09:22→15:24)
[2020-12-08] MEDS: guaiFENesin 600 MG TABLET.ER PO SCH (09:26)
[2020-12-08 11:06] LABS: Basophils # (A) 0.05 X 10*3/uL (0.00-0.10); Basophils % (A) 0.8 %; Eosinophils # (A) 0.49 X 10*3/uL (0.04-0.35); Eosinophils % (A) 7.6 %; HCT 31.4 % (37.2-46.3); HGB 8.9 g/dL (12.0-15.0); Lymphocytes # (A) 2.08 X 10*3/uL (0.90-5.00); Lymphocytes % (A) 32.2 %; MCH 28.8 pg (27.0-32.0); MCHC 28.3 g/dL (32.0-37.0); MCV 101.6 fL (80.0-97.0); Monocytes # (A) 0.58 X 10*3/uL (0.20-1.00); Neutrophils # (A) 3.21 X 10*3/uL (1.80-7.70); Neutrophils % (A) 49.6 %; Platelet Count 326 X 10*3/uL (140-440); RBC 3.09 X 10*6/uL (4.10-5.20); RDW 15.5 % (11.5-14.5); WBC 6.46 X 10*3/uL (4.50-10.00)
[2020-12-08 12:45] VITALS: RESP 16
--- NOTE | 2020-12-08 12:54 | P.DS ---
Providers Date of admission: 11/20/20 13:32 Expected date of discharge: 12/08/20 Attending physician: Akbar Swenson Consults: 11/20/20 15:44 Consult Physician Routine Consulting Provider: Sara Ortez Consult Reason/Comments: bilateral pneumoni Do you want consulting provider notified?: Yes 11/20/20 15:45 Consult Physician Routine Consulting Provider: Rafat Varela Consult Reason/Comments: urinary retention Do you want consulting provider notified?: Yes Consult Physician Routine Consulting Provider: Liam Wallace Consult Reason/Comments: sepsis Do you want consulting provider notified?: Yes 12/02/20 09:25 Consult Physician Routine Consulting Provider: Andrade Alatorre Consult Reason/Comments: rectal pain Do you want consulting provider notified?: Yes Primary care physician: Darcy Loring Hospital Course: Diagnosis on discharge: 1. Bilateral pneumonia patient was evaluated at [facility] and transferred to [facility] she was started on IV antibiotics. She currently maintained on IV Zosyn. White blood cell improving. Pulmonary and infectious disease following. Sputum showing MRSA. Patient currently on Zyvox 2. Bilateral pleural effusion 3. Acute on chronic hypoxic respiratory failure 4. Sepsis as evidenced by leukocytosis, tachycardia, patient received IV fluid boluses and currently she is maintained on IV antibiotics blood pressure is stable and will monitor closely .resolved 5. Recent fall with back pain Will continue with current narcotic regimen and adjust as needed 6. Recent surgery for hemorrhoids, patient is still complaining of pain in the rectal area and stool incontinence. C. diff negative 7. Urinary retention, patient was evaluated by urology on previous admission, she is still has a Panchal catheter, will consult urology again for evaluation. Per urology services trial void prior to discharge follow-up outpatient in 12 weeks 8. Evidence of urinary tract infection Will continue with current antibiotics awaiting urine and blood culture results 9. Underlying history of scleroderma 10. Underlying history of hypertension 11. Underlying history of hyperlipidemia 12. Underlying history of chronic pain syndrome maintained on narcotics 13. Underlying history of gastroesophageal reflux disease. 14. Underlying history of anxiety disorder. 15. Fecal impaction. resolved. Patient had large BM on 12/06/2020 Hospital course: Claribel Ruiz, is a 75-year-old female, who presented to [facility] emergency room with back pain and shortness of breath, she states that she fell about 1 week ago, patient was evaluated at [facility], computed tomography scan of the thoracic spine and the lumbar spine was done and revealed evidence of old T12 vertebral fracture without any evidence for new vertebral fractures, computed tomography scan also revealed extensive bilateral pulmonary infiltrates with bilateral pleural effusions, patient also had evidence of urinary tract infection, she had leukocytosis suggestive of sepsis, she was transferred to [facility] emergency room and then admitted to medical floor for further evaluation and treatment. Patient had several recent admissions to [facility], her last discharge was on 10/22/2020, over the last few months patient had evidence of Covid 19 pneumonia, she also had rectal pain and rectal bleeding and had surgery for hemorrhoids with Dr. Alatorre, she has underlying history of scleroderma, Raynaud's disease, hypertension, history of hyperlipidemia, history of osteoarthritis, history of osteoporosis, history of gastroesophageal reflux disease, history of chronic pain syndrome maintained on narcotics, history of pressure ulcer of the left buttock stage II, history of urinary retention requiring Panchal catheter placement patient was evaluated by urology on previous admission. Patient was evaluated at [facility] emergency room, her vital examination on presentation revealed a temperature of 97.8 pulse 108 respiration 18 blood pressure 102/67 pulse ox 94% on 3 L nasal cannula, her white blood count was 13.3 hemoglobin 10.4 platelet count 311 BUN 19 creatinine 0.44 Li virus PCR was negative. On 11/21/2020 patient was seen and examined on the medical floor she is alert and oriented 3 in no apparent distress she is complaining of stools incontinence patient stated that she is constantly having liquid stool coming out of the rectum she is also complaining of chest tightness and shortness of breath and occasional cough otherwise she denies any complaints. At this point will check stools for C. diff, consultation for gastroenterology was initiated. On 11/22/2020 patient was seen and examined on the medical floor he no apparent distress, she is complaining of shortness of breath she is maintained on oxygen via nasal cannula. Currently at 8 L per minute she has occasional cough she is maintained on IV antibiotic she was evaluated by pulmonary 80 scan angiogram of the chest was ordered however patient refused to have it so far. Otherwise she denies any complaints at this time there is no fever or chills no headache or dizziness no chest pain no nausea or vomiting no abdominal pain no diarrhea no blood in the stools no burning with urination no frequency or urgency and no hematuria. On 11/23/2020 patient was seen and examined on the medical floor she is somnolent arousable answer a few questions and returns to sleep she is maintained on oxygen via nasal cannula currently she is on 6 L/m she denies any chest pain denies any abdominal pain no nausea or vomiting she still has shortness of breath especially with any activity she is having some cough without any sputum production she is still having some stool incontinence. On 11/24/2020 patient was seen and examined on the medical floor she is still complaining of severe shortness of breath she is complaining of cough without sputum production there is no fever or chills no headache or dizziness no chest pain no palpitation no nausea or vomiting no abdominal pain no diarrhea no blood in the stools no burning with urination no frequency or urgency and no hematuria On 11/25/2020 patient is currently resting in bed currently working with physical therapy. Does state mild improvement. White blood cell improving to 9.6. Patient remains on IV Zosyn. Patient denies chest pain. Patient denies nausea vomiting or diarrhea. Patient denies any urinary burning or frequency. On 11/26/2020 patient was seen and examined on the medical floor she is alert and oriented 3 in no apparent distress she is still complaining of shortness of breath with any activity she is still complaining of leakage in the stools otherwise she denies any complaints at this time there is no fever or chills no headache or dizziness no chest pain no nausea or vomiting no abdominal pain no blood in the stools no burning with urination no frequency or urgency and no hematuria On 11/27/2020 patient is alert and oriented 3. Patient requesting Panchal catheter to be attempted to be removed. Voiding trial okay to be initiated per nursing staff. Patient was evaluated by urology services. Patient is having some shortness of breath today patient is on high flow 8 L improved. Patient denies chest pain. Patient denies any nausea or vomiting. Patient denies any urinary burning or frequency. On 11/28/2020 patient was seen and examined on the medical floor she is alert and oriented 3 in no apparent distress she is still complaining of shortness of breath and is maintained on oxygen 6 L via nasal cannula she has occasional cough no chest pain no palpitation no nausea or vomiting no abdominal pain no diarrhea no blood in the stools, patient still has Panchal catheter, plan is to discontinue Panchal catheter tomorrow in a.m. and monitor if patient can void. Sputum culture was positive for MRSA patient is maintained on IV vancomycin at this time. On 11/29/2020 patient was seen and examined on the medical floor she is alert and oriented 3 in no apparent distress there is no fever or chills no headache or dizziness, she is still complaining of shortness of breath, she is maintained on oxygen 4 L via nasal cannula at this time she still has episodes of cough, no nausea or vomiting no abdominal pain no diarrhea no blood in the stools Panchal catheter was removed this a.m. patient has not voided yet, will monitor closely On 11/30/2020 patient is alert and oriented 3 resting comfortably in bed. Per nursing staff patient had episode of desaturation likely secondary to anxiety. Pulmonary services are following repeat chest x-ray ordered. At this time patient is resting comfortably in bed. Patient is now on high flow oxygen 12L On 12/01/2020. Patient's alert and oriented 3 currently working with physical therapy. Patient oxygen requirement down to 8 L high flow. Patient is still complaining of rectal pain due to hemorrhoids. We'll consult surgical services for further evaluation. Patient denies any chest pain. Patient denies nausea vomiting or diarrhea. Patient denies any urinary burning or frequency. On 12/02/2020 patient was seen and examined on the medical floor she is alert and oriented 3 in no apparent distress she is complaining of rectal pain and lower abdominal pain surgery was consulted again and computed tomography scan of the abdomen and pelvis was ordered otherwise patient is feeling better her shortness of breath and cough has improved somewhat she is maintained on oxygen at 7 L via nasal cannula there is no fever or chills no headache or dizziness no chest pain she still has shortness of breath and cough no nausea or vomiting no diarrhea no blood in the stools no urinary symptoms Panchal catheter is in patient failed trial of discontinuing Panchal catheter due to urinary retention. On 12/03/2020 patient was seen and examined on the medical floor she is alert and oriented 3 in no apparent distress computed tomography scan of the abdomen and pelvis revealed evidence of constipation with fecal impaction patient was evaluated again by surgery and call likely was ordered otherwise patient is complaining of cough and shortness of breath otherwise no complaints, there is no fever or chills no headache or dizziness no chest pain no shortness of breath no cough no nausea or vomiting no abdominal pain no diarrhea and no urinary symptoms On 12/04/2020 patient is alert and oriented 3 resting comfortably in bed. Patient did have large BM prior to getting GoLYTELY. Patient states some improvement right after bowel movement but states that pain has returned continue medical management to prevent constipation and fecal impaction. Patient denies chest pain. Patient remains on 8 L high flow. Pulmonary services following. Patient denies nausea vomiting or diarrhea. Patient denies any urinary burning or frequency. Panchal catheter remains in place. On 12/05/2020 patient was seen and examined on the medical floor, she is alert and oriented 3 in no distress there is no fever or chills no headache or dizziness no chest pain no shortness of breath no cough no nausea or vomiting, she is having some abdominal pain and discomfort Panchal catheter is in On 12/06/2020 patient was seen and examined on the medical floor she is alert and oriented 3 in no apparent distress she is complaining of occasional cough and lower abdominal discomfort otherwise she denies any complaints there is no fever or chills no headache or dizziness no chest pain her shortness of breath is improving no nausea or vomiting no diarrhea no blood in the stools Panchal catheter is in and is draining well on 12/07/2020 she is alert and oriented 3. explained patient that she will be discharged to rehab tomorrow 12/08/2020. Patient will be discharged on Zyvox for 2 more weeks per ID. Patient did have a large BM yesterday with multiple BMs following. Patient reports that she feels improved after having bowel movement.patient currently on nasal cannula 4 L. Discussed with pulmonary team patient cleared for discharge. At this time patient denies chest pain. Patient denies nausea vomiting or diarrhea. Patient denies any urinary burning or frequency On 12/08/2020 patient was seen and examined on the medical floor she is alert and oriented 3 in no apparent distress at this time she is feeling weak otherwise no specific complaints she is not on any IV medication or any IV fluid she was cleared by all specialists for discharge she will be sent to a skilled nursing for rehabilitation will follow at the skilled nursing closely will complete course of Zyvox as recommended by Dr. Wallace infectious disease. Plan - Discharge Summary Discharge Rx Participant: Yes New Discharge Prescriptions: New Linezolid [Zyvox] 600 mg PO Q12H #16 tab Dicyclomine [Bentyl] 10 mg PO TID PRN cap PRN Reason: Dyspepsia Ipratropium-Albuterol Nebulize [Duoneb 0.5 mg-3 mg/3 ml Soln] 3 ml INHALATION RT-QID ml Ipratropium-Albuterol Nebulize [Duoneb 0.5 mg-3 mg/3 ml Soln] 3 ml INHALATION RT-Q2H PRN ml PRN Reason: Shortness Of Breath Or Wheezing calcium polycarbophiL [Fibercon] 625 mg PO BID tab Fluticasone Nasal [place] [Flonase Nasal [place]] 2 spray EA NOSTRIL DAILY PRN spr PRN Reason: Allergy Symptoms Lidocaine 4% Cream [Lmx 4] 1 applic TOPICAL Q3HR PRN applic PRN Reason: Mild To Moderate Pain guaiFENesin [Mucinex] 600 mg PO Q12HR tablet.er Benzonatate [Tessalon Perles] 100 mg PO TID cap Continue NIFEdipine [Nifedical Xl] 30 mg PO BID@0900,2100 Cholecalciferol [Vitamin D3 (25 Mcg = 1000 Iu)] 1,000 unit PO DAILY@0900 Mycophenolate Mofetil [Cellcept] 500 mg PO TID@0500,1400,2200 Celecoxib [CeleBREX] 200 mg PO BID@0900,2100 Ascorbic Acid [Vitamin C] 1,000 mg PO HS@2100 Gabapentin [Neurontin] 200 mg PO TID@0600,1400,2200 Meclizine [Antivert] 12.5 mg PO TID@0900,1400,2200 Famotidine [Pepcid] 20 mg PO BID@0900,2100 Sennosides-Docusate Sodium [Senokot-S] 1 tab PO DAILY PRN PRN Reason: Constipation Aspirin 81 mg PO DAILY@0900 bisacodyL [Dulcolax] 10 mg RECTAL DAILY PRN supp PRN Reason: Constipation Magnesium Hydroxide [Milk of Magnesia Concentrate] 7,200 mg PO DAILY PRN ml PRN Reason: Constipation polyethylene glycoL 3350 [Miralax] 17 gm PO DAILY PRN powd.pack PRN Reason: Constipation Acetaminophen Tab [Tylenol] 650 mg PO Q6HR PRN tab PRN Reason: Mild Pain Or Fever > 100.5 Tamsulosin HCl [Flomax] 0.4 mg PO HS@2100 Ondansetron [Zofran] 4 mg PO Q8H PRN PRN Reason: Nausea And Vomiting SILVER sulfADIAZINE CREAM [Silvadene Cream] 1 applic TOPICAL BID Metoprolol Tartrate [Lopressor] 12.5 mg PO BID@0900,2099 Psyllium Husk 100% [Metamucil Packet] 6 gm PO DAILY@0900 predniSONE 10 mg PO DAILY@0900 Atorvastatin [Lipitor] 20 mg PO HS@2099 Melatonin 5 mg PO HS@2099 Morphine Sulfate ER [Ms Contin] 15 mg PO HS@2100 Discontinued Alendronate Sodium [Fosamax] 70 mg PO WE@0600 HYDROcodone/APAP 10-325MG [[place] 10-325] 1 tab PO Q6H PRN PRN Reason: Pain Discharge Medication List NIFEdipine [Nifedical Xl] 30 mg PO BID@0900,209906/28/15 [History] Cholecalciferol [Vitamin D3 (25 Mcg = 1000 Iu)] 1,000 unit PO DAILY@0900 08/27/20 [History] Mycophenolate Mofetil [Cellcept] 500 mg PO TID@0500,1400,0 08/27/20 [History] Celecoxib [CeleBREX] 200 mg PO BID@0900,209908/29/20 [History] Ascorbic Acid [Vitamin C] 1,000 mg PO HS@209909/11/20 [History] Gabapentin [Neurontin] 200 mg PO TID@0600,1400,0 09/11/20 [History] Aspirin 81 mg PO DAILY@0900 10/06/20 [History] Famotidine [Pepcid] 20 mg PO BID@0900,209910/06/20 [History] Meclizine [Antivert] 12.5 mg PO TID@0900,1400,0 10/06/20 [History] Sennosides-Docusate Sodium [Senokot-S] 1 tab PO DAILY PRN 10/06/20 [History] Acetaminophen Tab [Tylenol] 650 mg PO Q6HR PRN tab 10/22/20 [Rx] Magnesium Hydroxide [Milk of Magnesia Concentrate] 7,200 mg PO DAILY PRN ml 10/22/20 [Rx] bisacodyL [Dulcolax] 10 mg RECTAL DAILY PRN supp 10/22/20 [Rx] polyethylene glycoL 3350 [Miralax] 17 gm PO DAILY PRN powd.pack 10/22/20 [Rx] Atorvastatin [Lipitor] 20 mg PO HS@209911/20/20 [History] Melatonin 5 mg PO HS@209911/20/20 [History] Metoprolol Tartrate [Lopressor] 12.5 mg PO BID@0900,209911/20/20 [History] Morphine Sulfate ER [Ms Contin] 15 mg PO HS@209911/20/20 [History] Ondansetron [Zofran] 4 mg PO Q8H PRN 11/20/20 [History] Psyllium Husk 100% [Metamucil Packet] 6 gm PO DAILY@0900 11/20/20 [History] SILVER sulfADIAZINE CREAM [Silvadene Cream] 1 applic TOPICAL BID 11/20/20 [History] Tamsulosin HCl [Flomax] 0.4 mg PO HS@209911/20/20 [History] predniSONE 10 mg PO DAILY@0900 11/20/20 [History] Linezolid [Zyvox] 600 mg PO Q12H #16 tab 12/05/20 [Rx] Benzonatate [Tessalon Perles] 100 mg PO TID cap 12/07/20 [Rx] Dicyclomine [Bentyl] 10 mg PO TID PRN cap 12/07/20 [Rx] Fluticasone Nasal [place] [Flonase Nasal [place]] 2 spray EA NOSTRIL DAILY PRN spr 12/07/20 [Rx] Ipratropium-Albuterol Nebulize [Duoneb 0.5 mg-3 mg/3 ml Soln] 3 ml INHALATION RT-Q2H PRN ml 12/07/20 [Rx] Ipratropium-Albuterol Nebulize [Duoneb 0.5 mg-3 mg/3 ml Soln] 3 ml INHALATION RT-QID ml 12/07/20 [Rx] Lidocaine 4% Cream [Lmx 4] 1 applic TOPICAL Q3HR PRN applic 12/07/20 [Rx] calcium polycarbophiL [Fibercon] 625 mg PO BID tab 12/07/20 [Rx] guaiFENesin [Mucinex] 600 mg PO Q12HR tablet.er 12/07/20 [Rx] Follow up Appointment(s)/Referral(s): Darcy Araujo MD [Primary Care Provider] - 1-2 days Kenneth Camejo MD [STAFF PHYSICIAN] - [facility] [NON-STAFF] - As Needed Patient Instructions/Handouts: Computed Tomography Scan (GEN)
--- NOTE | 2020-12-08 13:37 | P.PN ---
Subjective Progress Note Date: 12/08/20 Principal diagnosis: Acute hypoxemic respiratory failure secondary to bilateral pneumonia This is a 75-year-old female that is transferred down from [facility]. She lives up in the [facility] area. The patient was recently diagnosed with a urinary tract infection and pneumonia. She was also diagnosed with sepsis and placed on oxygen at 3 L. Typically she is not on oxygen therapy. The patient was transferred down to for further management and evaluation. Her complaints include primarily shortness of breath, and cough. She's not producing much or any phlegm. She denies any chest pain. She also denies any nausea, vomiting, or diarrhea. She denied any fever or chills. She did recently fall, and injured her back. Apparently there were no fractures noted. Currently, her chest x-ray showing diffuse bilateral infiltrates. Her primary care provider is Dr. Darcy Araujo. Chest x-ray showed bilateral infiltrates, right greater than left. Her COVID 19 testing was negative. Her white count was 8.1 down from 13.3, white count 10.3, hematocrit 34.1, and platelet count 314,000. Sodium was 139, potassium 5.1, chloride 107, CO2 24, anion gap 8, BUN 16, c reatinine 0.37. Her urine was yellow and cloudy with a specific gravity 1.037. Her leukocyte esterase test was moderately positive with 20 WBCs, and rare bacteria. Currently, she is on vancomycin and also Zosyn. Culture data including blood sampling, sputum, and urine are either pending or negative. Clinically, she was requiring 10 L high flow nasal cannula for saturations between 93-97%. She did not appear to have any significant distress. Progress note dated 11/22/2020. 75-year-old female that we saw yesterday in consultation. She was transferred down from [facility], with urinary tract infection and pneumonia. Currently, she is on 10 L high flow nasal O2. Today, she complains mostly of nasal congestion and stuffiness. We recommended some Flonase nasal spray for that. In addition, because of her diffuse bilateral infiltrates, we went ahead and ordered a CT angiogram. Her white count is 12.3, hemoglobin 9.5, hematocrit 34.4, and platelet count 313,000. Sodium is 144, potassium 4.3, chlorides 110, CO2 26, anion gap 8, BUN and creatinine of 20 and 0.5. Her urinalysis from yesterday shows a urine to be yellow and cloudy, with moderate positive leukocyte esterase, 20 WBCs, and rare bacteria. Coronavirus testing was negative although she did have COVID 19 in the past. Current temperature is 98.1, heart rate 80, respiratory rate 16, blood pressure 107/66, with a mean of 79, and saturations are 93% 10 L high flow nasal O2. Patient is seen today 11/23/2020 in follow-up on the regular medical floor. She is currently sitting up in a chair at the bedside. Awake and alert in no acute distress. Maintaining O2 saturations up to 100% on 15 L nonrebreather mask. She's afebrile. Tachycardic. White count 14.6. Hemoglobin 10.0. Sodium 141. Potassium 4.1. Creatinine 0.5. She remains on bronchodilators, insulin. Antibiotics in the form of Zosyn. The patient is seen today 11/24/2020 in follow-up on the regular medical floor. She is currently sitting up in bed. Breathing a bit easier today compared to yesterday. Still requiring 10 L high flow nasal cannula. Urine culture revealed no growth. White count 11.0. Hemoglobin 9.7. Sodium 139. Potassium 3.8. Creatinine 0.4. Remains on bronchodilators, prednisone. Antibiotics in the form of Zosyn. The patient is seen today 11/25/2020 in follow-up on the regular medical floor. She is currently resting comfortably in bed. Breathing easier today compared to yesterday. Currently on 8 L high flow nasal cannula. She's afebrile. Hemodynamically stable. White count 9.6. Hemoglobin 10.1. Sodium 138. Potassium 4.1. Creatinine 0.39. She remains on DuoNeb inhalations, prednisone. Lovenox for DVT prophylaxis. Antibiotics in the form of Zosyn. Urine culture revealed no growth. On today's evaluation of 11/28/2020 the patient remains on 6 L of oxygen by nasal cannula. Chest x-ray was done yesterday and showed persistent bilateral areas of acute infiltration/chronic infiltration and she does have baseline cardiomegaly and baseline ILD related to her systemic sclerosis. Noted the patient's older CAT scan of the chest also showed chronic ILD consistent with interstitial lung disease from connective tissue disease disorder. For now, the sputum is also positive for MRSA and the patient is currently on vancomycin. She is weak. She is quite debilitated. Her most recent CAT scan of the chest that was done on 11/22/2020. Indicated the possibility of progression of the diffuse bilateral groundglass pulmonary opacities. There was no evidence of any pulmonary embolism. There was small to moderate-sized Lymph Nodes along with Some Mild Cardiomegaly and T12 Compression Fracture of the Spine with a 30% Height Loss. In Terms of Her Scleroderma and ILD, the Patient Remains on CellCept and She Has Also Completed a Prednisone Burst Taper. CellCept Is Being Given a Dose of 500 Mg by Mouth 3 Times A Day. On 11/29/2020 the patient is on oxygen and she is currently at 6 L per minute nasal cannula. No major change compared to yesterday. Overnight, she was stable and she did not have any new complaints. She is spending most of the time in bed. She remains on vancomycin regarding the MRSA that was cultured in the sputum. As mentioned earlier, she has ILD related to scleroderma and in addition she got infected with COVID 19 which ended up Attributing her res piratory failure and she developed ongoing persistent infiltrates and fibrotic changes in lung bases bilaterally following the Viral infection. No major swelling lower extremities. She is still on CellCept for now. She is also treated a prednisone burst taper. No altered mentation. The patient is seen today 11/30/2020 and follow-up on the regular medical floor. She is currently sitting up in a chair at the bedside. Awake and alert in no acute distress. Earlier this morning she had issues with desaturation on 6 L and required Ventimask placement. She is up to 95-99%. She'll be transitioned back to 6 L high flow nasal cannula. No worsening shortness of breath, cough or congestion. Chest x-ray continues to show persistent bilateral area areas of acute infiltration on background ILD and COPD. Possible ARDS. No significant improvement. Sputum culture from back on the was positive for MRSA and Lorrie. She remains on vancomycin. Continued on bronchodilators, prednisone t aper. Lovenox for DVT prophylaxis. Remains on CellCept for her scleroderma and ILD The patient is seen today 12/01/2020 in follow-up on the regular medical floor. She is currently sitting up at the bedside with physical therapy on standby. She is awake and alert in no acute distress. Currently on 6 L high flow nasal cannula. No worsening shortness of breath, cough or congestion. Still dyspneic with minimal conversation. Sputum culture was positive for MRSA and Lorrie. Sodium 139. Potassium 3.6. Creatinine 0.45. Currently on Zyvox. Remains on bronchodilators him a prednisone taper. Needs increased encouragement regarding nutrition and activity. Lovenox for DVT prophylaxis. The patient is seen today 12/02/2020 in follow-up on the regular medical floor. She is currently sitting up in chair at the bedside, working with physical therapy. She is breathing easier today compared to yesterday. Currently on 8 L high flow nasal cannula. She remains on bronchodilators. Prednisone. Zyvox. The patient is seen today 12/08/2020 at follow-up on the regular medical floor. She is currently sitting up in bed. Awake and alert in no acute distress. Currently maintaining O2 saturations in the 90s on 4 L/m per nasal cannula. White count 6.4. Hemoglobin 8.9. Continued on bronchodilators, Tessalon Perles, prednisone. Remains on Zyvox for MRSA positive sputum. Has been having regular bowel movements. Objective - Vital Signs Vital signs: Vital Signs Temp 98.8 F 12/08/20 08:00 Pulse 60 12/08/20 12:14 Resp 16 12/08/20 08:00 BP 143/74 12/08/20 08:00 Pulse Ox 95 12/08/20 08:00 Intake & Output 12/07/20 12/08/20 12/08/20 18:59 06:59 18:59 Intake Total 960 Output Total 575 950 Balance 385 -950 Intake: Oral 960 Output: Urine 575 950 Other: Voiding Method Indwelling Catheter Indwelling Catheter Indwelling Catheter # Voids 3 - Exam GENERAL EXAM: Alert, 75-year-old male, cachectic female patient, on 4 L high flow nasal cannula. Comfortable in no apparent distress. HEAD: Normocephalic. EYES: Normal reaction of pupils, equal size. NOSE: Clear with pink turbinates. THROAT: No erythema or exudates. NECK: No masses, no JVD. CHEST: No chest wall deformity. LUNGS: Equal air entry with bilateral scattered rhonchi, diminished. CVS: S1 and S2 normal with no audible murmur, regular rhythm. ABDOMEN: No hepatosplenomegaly, normal bowel sounds, no guarding or rigidity. SPINE: No scoliosis or deformity SKIN: No rashes CENTRAL NERVOUS SYSTEM: No focal deficits, tone is normal in all 4 extremities. EXTREMITIES: There is no peripheral edema. No clubbing, no cyanosis. Peripheral pulses are intact. - Labs CBC & Chem 7: 12/08/20 07:35 12/07/20 06:55 Labs: Abnormal Lab Results - Last 24 Hours (Table) 12/08/20 Range/Units 07:35 RBC 3.09 L (4.10-5.20) X 10*6/uL Hgb 8.9 L (12.0-15.0) g/dL Hct 31.4 L (37.2-46.3) % MCV 101.6 H (80.0-97.0) fL MCHC 28.3 L (32.0-37.0) g/dL RDW 15.5 H (11.5-14.5) % MPV 9.0 L (9.5-12.2) fL Immature Gran # 0.05 H (0.00-0.04) X 10*3/uL Eosinophils # 0.49 H (0.04-0.35) X 10*3/uL Assessment and Plan Assessment: 1 Acute hypoxemic respiratory failure secondary to bilateral pneumonia, currently on 8 L high flow nasal cannula. Patient has chronic ILD evident on previous CAT scan of the chest in 2014 2015. Subsequently, she got Covid 19 in July 2020 diffuse bilateral groundglass pulmonary infiltrates somewhat patchy and peripheral more so in the lower lobes. Follow-up CAT scan of the chest showed chronic fibrotic changes in both fibrotic and interstitial changes bilaterally from September 2020 and October 2020. 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 A superinfection with bacterial pneumonia is likely as the patient positive for MRSA and the patient is now on Zyvox. 2 Urinary tract infection, rule out urosepsis. Chronic Panchal. 3 Prior history of COVID 19 pneumonitis. 4 Severe hypoxemic respiratory failure, rule out early acute respiratory distress syndrome (ARDS). 5 History of osteoarthritis. 6 History of pneumonia. 7 History of Raynaud's syndrome. 8 History of progressive systemic sclerosis (PSS). 9 History of varicose veins. 10 History of degenerative disc disease. 11 Lifelong nonsmoker. 12 Constipation, resolved Plan: The patient was seen and evaluated by Dr. Ortez Continue bronchodilators, prednisone Antibiotics per ID services, currently on Zyvox Cleared for transfer to [facility] today I, the cosigning physician, performed a history & physical examination of the patient. Lungs sounds scattered rhonchi, diminished. Maintaining good O2 saturations in the 90s on 4 L high flow nasal cannula. I discussed the assessment and plan of care with my nurse practitioner, Marti Espinoaz. I attest to the above note as dictated by her.
--- NOTE | 2020-12-08 14:06 | P.PN ---
Subjective Progress Note Date: 12/08/20 CHIEF COMPLAINT: Rectal pain HISTORY OF PRESENT ILLNESS: Patient seen and examined with Dr. Alatorre. Panchito pandey is followed in regards to rectal pain and constipation. Patient does report having bowel movements after the citrate of magnesia. She does report some improvement in her rectal pain. Denies abdominal pain. Denies any nausea or vomiting. Afebrile. PHYSICAL EXAM: VITAL SIGNS: Reviewed. GENERAL: Well-developed in no acute distress. HEENT: No sclera icterus. Extraocular movements grossly intact. Moist buccal mucosa. Head is atraumatic, normocephalic. ABDOMEN: Soft. Nondistended. NEUROLOGIC: Alert and oriented. Cranial nerves II through XII grossly intact. ASSESSMENT: 1. Rectal fecal impaction 2. Constipation PLAN: -Continue supportive care -Patient can be discharge from surgical standpoint and follow up as needed in the office Physician Webbing Inspector note has been reviewed by physician. Signing provider agrees with the documented findings, assessment, and plan of care. Objective - Vital Signs Vital signs: Vital Signs Temp 98.8 F 12/08/20 08:00 Pulse 60 12/08/20 12:14 Resp 16 12/08/20 08:00 BP 143/74 12/08/20 08:00 Pulse Ox 95 12/08/20 08:00 Intake & Output 12/07/20 12/08/20 12/08/20 18:59 06:59 18:59 Intake Total 960 Output Total 575 950 Balance 385 -950 Intake: Oral 960 Output: Urine 575 950 Other: Voiding Method Indwelling Catheter Indwelling Catheter Indwelling Catheter # Voids 3 - Labs CBC & Chem 7: 12/08/20 07:35 12/07/20 06:55 Labs: Abnormal Lab Results - Last 24 Hours (Table) 12/08/20 Range/Units 07:35 RBC 3.09 L (4.10-5.20) X 10*6/uL Hgb 8.9 L (12.0-15.0) g/dL Hct 31.4 L (37.2-46.3) % MCV 101.6 H (80.0-97.0) fL MCHC 28.3 L (32.0-37.0) g/dL RDW 15.5 H (11.5-14.5) % MPV 9.0 L (9.5-12.2) fL Immature Gran # 0.05 H (0.00-0.04) X 10*3/uL Eosinophils # 0.49 H (0.04-0.35) X 10*3/uL
[2020-12-08 14:49] VITALS: BP 120/69; PULSE 67; TEMP 97.7
--- NOTE | 2020-12-08 15:19 | CDI ---
Documentation Clarification Form Date: 12/08/2020 03:07:05 PM From: Wendi Villanueva CCS, CCDS Admit Date: 11/20/2020 01:32:00 PM Patient Name: Claribel Ruiz Visit Number: [id number] Discharge Date: ATTENTION: The Clinical Documentation Specialists (CDI) and [facility] Coding Staff appreciate your assistance in clarifying documentation. Please respond to the clarification below the line at the bottom and electronically sign. The CDI & [facility] Coding staff will review the response and follow-up if needed. Please note: Queries are made part of the Legal Health Record. If you have any questions, please contact the author of this message via ITS. Dr. Akbar Swenson: Per the 11/20 History & Physical: Patient has had several recent admissions to [facility]. History of urinary retention requiring a Panchal catheter, evaluated by Urology on previous admission. Urinary retention, still has a Panchal catheter. Per the 11/21 Infectious Disease Consult: Patient has urinary symptoms. Apparently did have a positive UA at the other facility with UTI. Per the 11/21 Urology Consult: During the last hospitalization, a Panchal catheter was placed at that time for urinary retention. Patient indicated she failed a trial void as outpatient and Panchal catheter was reinserted, unsure how long the catheter has been in place. Per the Nursing Assessment: 11/21: Panchal catheter in place, discontinued on 11/29, Re-inserted on 11/29 for Retention. Per the 12/05 Infectious Disease Progress Note: Possible Catheter associated Urinary tract infection secondary to chronic Panchal, ruled out. Per the 12/08 Discharge Summary: Patient still has a Panchal Catheter. History/Risk Factors: Recent Pneumonia & UTI, OA, Raynaud's Syndrome, Systemic Scleroderma, Varicose Veins, DDD. Clinical Indicators: Presented to the ED on 11/20 with SOB via EMS. Diagnosed with Sepsis with UTI & Pneumonia at [facility]. Transferred to [facility]. ED Clinical Impression: Sepsis, UTI, Pneumonia. 11/21 UA: Cloudy, Sp Gr 1.037, 1+ Protein, Moderate Esterase, WBC 20 11/21 Urine Culture (final): Negative Treatment: IV Rocephin, IV fluid bolus 2,000 mls @ 999 mls/hr q2H, IV Vancomycin, IV Zosyn In your professional opinion, can you please clarify the etiology of the UTI, if known? [ ] UTI related to Panchal catheter, Present on Admission: Yes or No [ ] UTI not related to Panchal catheter [ ] Other condition, please specify [ ] Unable to determine (Last Revision: December 2017) MTDD
[2020-12-08 20:36] LABS: Albumin 3.4 g/dL (3.80-4.90); Albumin/Globulin Ratio 2.43 (1.60-3.17); Anion Gap 5.9 mmol/L (4.00-12.00); Calcium 9.3 mg/dL (8.7-10.3); Carbon Dioxide 30.1 mmol/L (21.6-31.8); Globulin 1.4 g/dL (1.6-3.3); Potassium 4.3 mmol/L (3.5-5.5); Total Bilirubin 0.2 mg/dL (0.2-1.2); Total Protein 4.8 g/dL (6.2-8.2)
--- NOTE | 2020-12-09 14:52 | P.PN ---
Progress Note - Text Progress Note Date: 12/08/20 REASON FOR FOLLOWUP: MRSA pneumonia. INTERVAL HISTORY: The patient remains to be afebrile afebrile. The patient is breathing comfortably. The patient denies chest pain the patient did have Occasional cough. No nausea, no vomiting. No abdominal pain. No diarrhea. PHYSICAL EXAMINATION: Blood pressure 120/60, pulse of 72, temperature is 98. She is 93% on 4 L nasal cannula. General description is an elderly female lying in bed in no distress. Respiratory system: Unlabored breathing with decreased intensity in breath sounds. No wheeze. Heart S1, S2. Regular rate and rhythm. Abdomen soft, no tenderness. LABS: Reviewed DIAGNOSTIC IMPRESSION AND PLAN: Patient with MRSA pneumonia for which has clinically responded to Zyvox which will be continued On discharge to finish a 2 week course of therapy. Continue supportive care.
== END 2020-12-08 15:24 | DRG 871 ==
LOC: EC 12:14 → 4SSUR 13:32
PROVIDERS: ADMIT Internal Medicine; ATTEND Internal Medicine
DX: A41.9 Sepsis, unspecified organism (principal); J15.212 Pneumonia due to Methicillin resistant Staphylococcus aureus; J96.21 Acute and chronic respiratory failure with hypoxia; J84.9 Interstitial pulmonary disease, unspecified; J90 Pleural effusion, not elsewhere classified; J44.0 Chronic obstructive pulmonary disease with (acute) lower respiratory infection; M48.54XA Collapsed vertebra, not elsewhere classified, thoracic region, initial encounter for fracture; M48.56XA Collapsed vertebra, not elsewhere classified, lumbar region, initial encounter for fracture; N39.0 Urinary tract infection, site not specified; Z86.16 Personal history of COVID-19; M34.9 Systemic sclerosis, unspecified; I73.00 Raynaud's syndrome without gangrene; I10 Essential (primary) hypertension; E78.5 Hyperlipidemia, unspecified; F41.9 Anxiety disorder, unspecified; G89.4 Chronic pain syndrome; I83.90 Asymptomatic varicose veins of unspecified lower extremity; K56.41 Fecal impaction; K64.9 Unspecified hemorrhoids; K44.9 Diaphragmatic hernia without obstruction or gangrene; M81.0 Age-related osteoporosis without current pathological fracture; Z66 Do not resuscitate; M19.90 Unspecified osteoarthritis, unspecified site; Z79.1 Long term (current) use of non-steroidal anti-inflammatories (NSAID); Z79.82 Long term (current) use of aspirin; Z79.83 Long term (current) use of bisphosphonates; Z79.891 Long term (current) use of opiate analgesic; Z79.899 Other long term (current) drug therapy
CPT/HCPCS: 36415; 71045; 71046; 71275; 74019; 74177; 80053; 80202; 81001; 82565; 83605; 84145; 85025; 87070; 87077; 87086; 87186; 87205; 87324; 87635; 93005; 94640; 94760

== ENCOUNTER → 2023-05-06 | Outpatient (CLI) | payer MEDICARE ==
[2023-05-06 14:22] VITALS: BP 133/56; PULSE 74; RESP 15; TEMP 98.2
--- NOTE | 2023-05-06 14:44 | P.PAINPG ---
Objective - Vital Signs Vital signs: Intake & Output 05/05/23 05/06/23 05/06/23 18:59 06:59 18:59 Weight 56.699 kg PQRS Measure Charge Sheet Comment: HISTORY OF PRESENT ILLNESS: 77 yr old wheelchair bound female w at side as a referral from [facility] presents today w severe and chronic LBP x 2 yrs secondary to DDD, spondylosis and facet arthropathy without myelopathy for evaluation. Pt states pain level is provoked at 10 /10 in intensity, constant, localized in the lumbar spine, in character w shooting pain towards the BL legs. Pain is provoked by standing, walking or over activity. Pain is alleviated by PT x 2 wks which she is currently in, medications (Lyrica, Celebrex, Tyl Arthritis), topical, chiropractic treatments q3 wks which she is currently in, use of a wheelchair for ambulatory assistance, repositioning and rest. Oswestry axial pain score at 31. PMH: OA, OP, Iron Deficiency Anemia, Raynaud's Phenomenon, Systemic Scleroderma, HTN PSH: DENIES SH: . Negative x3 FH: Mo- HTN/ Dementia/ at 102. Fa- Emphysema/ in late 60s All: See list Meds: See list REVIEW OF ORGAN SYSTEMS: CONSTITUTIONAL: No fevers or chills. No recent weight loss. NEUROLOGICAL: + numbness and tingling along the distal extremities. No seizure disorders or headaches. MUSCULOSKELETAL: + pain PSYCHIATRIC: Denies current depression or suicidal thoughts. Physical Examinations : Constitutional : Cooperative , not in acute distress . Neurologic : Cranial nerve II to XII intact. No focal neurological deficits. Psychiatric : alert & oriented x 3. Matching mood & appropriate affect. Judgment & insight intact. Musculoskeletal : Cervical Spine Motor strength in the deltoid and biceps: Normal right side. Normal Left side Motor strength biceps and the wrist extensors: Normal right side . Normal left side Motor strength in the triceps muscle: Normal right side. Normal left side Deep tendon reflexes: Normal at the biceps. Normal at Brachioradialis. Normal at triceps Vertebral body tenderness to deep palpation over Cervical facet loading test: positive bilaterally Spurling test: positive bilaterally Neck distraction test: positive bilaterally Perez sign: positive bilaterally Lumbar spine Motor strength lower extremities ,thigh and legs 5/5 Right side , 5/5 Left side Deep tendon reflexes : Normal Knee Jerk. Normal Ankle Jerk Vertebral body tenderness over L5 Kam Test positive Lumbar facet Loading Test: positive Right / positive Left Range of motion of the lumbar spine Flexion 30 degrees, extension 10 degrees Straight Leg Raise test: Left/ Right positive at 35 degrees Claudia test: positive right / positive left. Severe tenderness over the Sacroiliac joint on the Right / Left sides Gaenslen test: positive bilaterally Seated flexion test: positive bilaterally. Sacral spine : Severe tenderness over the Sacroiliac joint: right side / left side Range of motion: Flexion of the lumbar spine <60 degrees Range of motion: Extension of the lumbar spine <20 degrees Gaenslen's Test positive Vivek's Test positive Claudia test: positive right side / left side Thigh Thrust Test Sacral Thrust Test Imaging: CT noncontrast of the lumbar spine from 11/20/20 reviewed Assessment/ Plan : Chronic T12 compression fracture, Lumbar DDD Recommendation of AWA L5-S1. May need a series of injections for optimal pain relief. Risks, benefits of procedure discussed and patient verbalized understanding. Admits to aspirin or anti- coagulant use or medical history of diabetes. Protocol for discontinuation/ continuation of medications anum procedure discussed. Minimal anesthesia provided, if clinically indicated, consisting of Versed and Fentanyl. All questions answered. I have spent greater than 30 minutes on patient care today. Dr Gonzalez was available by phone for the evaluation of this patient. The time was used to review the medical records including relevant urine studies and Prescription history (MAPs), review of the available imaging, evaluation and examination of the patient, coordination of care with the medical staff and if applicable referring physicians, as well as creation of the medical record PQRS Narrative: Smoking Status Never smoker Home Medications: Ambulatory Orders NIFEdipine [Nifedical Xl] 30 mg PO BID@0900,209906/28/15 Cholecalciferol [Vitamin D3 (25 Mcg = 1000 Iu)] 1,000 unit PO DAILY@0900 08/27/20 mycophenolate mofetiL [Cellcept] 500 mg PO TID@0500,1400,219908/27/20 Celecoxib [CeleBREX] 200 mg PO BID@0900,209908/29/20 Ascorbic Acid [Vitamin C] 1,000 mg PO HS@209909/11/20 Gabapentin [Neurontin] 200 mg PO TID@0600,1400,219909/11/20 Aspirin 81 mg PO DAILY@89910/06/20 Famotidine [Pepcid] 20 mg PO BID@899,209910/06/20 Meclizine [Antivert] 12.5 mg PO TID@0900,1400,219910/06/20 Sennosides-Docusate Sodium [Senokot-S] 1 tab PO DAILY PRN 10/06/20 Acetaminophen Tab [Tylenol] 650 mg PO Q6HR PRN tab 10/22/20 Magnesium Hydroxide [Milk of Magnesia Concentrate] 7,200 mg PO DAILY PRN ml 10/22/20 bisacodyL [Dulcolax] 10 mg RECTAL DAILY PRN supp 10/22/20 polyethylene glycoL 3350 [Miralax] 17 gm PO DAILY PRN powd.pack 10/22/20 Atorvastatin [Lipitor] 20 mg PO HS@209911/20/20 Melatonin 5 mg PO HS@209911/20/20 Metoprolol Tartrate [Lopressor] 12.5 mg PO BID@899,209911/20/20 Morphine Sulfate ER [Ms Contin] 15 mg PO HS@209911/20/20 Ondansetron [Zofran] 4 mg PO Q8H PRN 11/20/20 Psyllium Husk 100% [Metamucil Packet] 6 gm PO DAILY@89911/20/20 SILVER sulfADIAZINE CREAM [Silvadene Cream] 1 applic TOPICAL BID 11/20/20 Tamsulosin HCl [Flomax] 0.4 mg PO HS@209911/20/20 predniSONE 10 mg PO DAILY@89911/20/20 Linezolid [Zyvox] 600 mg PO Q12H #16 tab 12/05/20 Benzonatate [Tessalon Perles] 100 mg PO TID cap 12/07/20 Dicyclomine [Bentyl] 10 mg PO TID PRN cap 12/07/20 Fluticasone Nasal Clanton [Flonase Nasal Cl[place]] 2 spray EA NOSTRIL DAILY PRN spr 12/07/20 Ipratropium-Albuterol Nebulize [Duoneb 0.5 mg-3 mg/3 ml Soln] 3 ml INHALATION RT-Q2H PRN ml 12/07/20 Ipratropium-Albuterol Nebulize [Duoneb 0.5 mg-3 mg/3 ml Soln] 3 ml INHALATION RT-QID ml 12/07/20 Lidocaine 4% Cream [Lmx 4] 1 applic TOPICAL Q3HR PRN applic 12/07/20 calcium polycarbophiL [Fibercon] 625 mg PO BID tab 12/07/20 guaiFENesin [Mucinex] 600 mg PO Q12HR tablet.er 12/07/20 Controlled Substance Measures - Controlled Substance Measures Is patient prescribed a controlled substance at discharge?: No
== END ==
LOC: PNWHC3 13:28
PROVIDERS: ATTEND Specialist
DX: S22.000A Wedge compression fracture of unspecified thoracic vertebra, initial encounter for closed fracture (principal); M19.90 Unspecified osteoarthritis, unspecified site; D50.9 Iron deficiency anemia, unspecified; I10 Essential (primary) hypertension; M51.36 Other intervertebral disc degeneration, lumbar region; Z79.82 Long term (current) use of aspirin; Z79.899 Other long term (current) drug therapy; Z88.1 Allergy status to other antibiotic agents; Z91.040 Latex allergy status
CPT/HCPCS: 99211

== ENCOUNTER 2023-07-04 13:06 | Day surgery (SDC) | payer MEDICARE ==
[2023-06-28 14:37] VITALS: BMI 18.0
[~2023-07-04 13:06] MED LIST: LACTATED RINGERS 1,000 ML IV SCH
[2023-07-04 14:00] VITALS: RESP 16; TEMP 98.5
[2023-07-04] MEDS ORDERED: ROPIVACAINE 5MG/ML 20ML VIAL ONE (14:47)
[2023-07-04] MEDS ORDERED: TRIAMCINOLONE ACETONIDE 40 MG/ML 1 ML VIAL ONE (14:47)
[2023-07-04] MEDS ORDERED: IOPAMIDOL M200 10 ML VIAL ONE (14:47)
--- NOTE | 2023-07-04 15:07 | P.PCN ---
Date of Procedure: 07/04/23 Surgeon: Ugo Mullen Pathology: none sent Condition: stable Disposition: PACU Description of Procedure: PREOPERATIVE DIAGNOSIS: 1-Lumbar radiculopathy 2- Lumber Degenerative Disc Diseases. 3-scleroderma POSTOPERATIVE DIAGNOSIS: 1-Lumbar radiculopathy. 2-Lumbar Degenerative Disc Diseases 3-scleroderma PROCEDURE 1. Lumbar epidural steroid injection under fluoroscopic guidance at the L3-4 level. 2. Lumbar epidurogram. ANESTHESIA: Local only with 1% lidocaine EBL: Minimal PROCEDURE INDICATION: The patient with low back pain and radiculitis symptoms unresponsive to conservative treatment. Fluoroscopy was used to optimize visualization of the needle placement and to maximize safety. PROCEDURE DESCRIPTION / TECHNIQUE: The patient was seen and identified in the preoperative area. Risks, benefits, complications including but not limited to infections ,bleeding ,allergic reaction to the medications ,nerve damage and not complete pain relief , and alternatives were discussed with the patient. The patient agreed to proceed with the procedure and signed the consent. IV was started, and vital signs were stable. Patient was taken to the OR and time out was completed. The patient was placed in the Lateral position on procedure table due to her inability to assume the prone position. The lumbosacral area was prepped and draped in the usual sterile fashion with ChloraPrep.Patient was closely monitored during the procedure. Conscious sedation was used during the procedure to decrease patients anxiety. Vital signs were monitered during the entire procedure. Using anterior-posterior fluoroscopy, the L3-4 interlaminar space was identified and the skin over this site was marked and then infiltrated with 1% lidocaine subcutaneously. Subsequently, a 20-gauge Tuohy epidural needle was inserted and advanced toward the epidural space using the Loss of resistance to air technique and guided by AP and lateral fluoroscopy. The correct needle position in the epidural space was verified with the injection of 1 mL of the water soluble contrast dye Omnipaque 180 contrast and observing an excellent epidurogram with the epidural spread of the dye, after negative aspiration for blood and CSF and in the absence of paresthesias. Again after negative aspiration, a 6 ml mixture containing 40 mg of Kenalog and 4 ml of preservative free Normal Saline, and 2 ml of preservative free Ropivacaine 0.5% solution was injected and a washout of epidurogram was seen. Needle was withdrawn intact, skin was cleansed, and bandages were applied. patient tolerated procedure well and was transferred to PACU in stable condition.A copy of the needle placement picture was saved to the fluoroscopy machine. COMPLICATIONS: None DISPOSITION / PLANS: The patient was placed in a supine position and transferred to the recovery area in a stable condition for observation. There was no evidence of lower extremity motor or sensory deficit after the procedure. Patient was discharged from the recovery room after meeting discharge criteria. Home discharge instructions were given to the patient by the staff. The patient was reexamined prior to discharge. The patient will schedule a follow up in the clinic in 2-4 weeks.
[2023-07-04 15:37] VITALS: BP 120/65; PULSE 63
--- NOTE | 2023-07-04 19:36 | FL ---
EXAMINATION TYPE: FL guided pain mgmt statistic DATE OF EXAM: 07/04/2023 FLUOROSCOPY LESI, 33 SEC FL TIME, DAP=[id number], 4 images.
== END 2023-07-04 15:58 | disposition home or self-care (01) ==
LOC: ORPAIN 13:06
PROVIDERS: ATTEND Anesthesiology
DX: M51.16 Intervertebral disc disorders with radiculopathy, lumbar region (principal); M34.9 Systemic sclerosis, unspecified; Z79.899 Other long term (current) drug therapy
CPT/HCPCS: 62323; J3301; Q9966; J2795

== ENCOUNTER → 2023-07-31 | Outpatient (CLI) | payer MEDICARE ==
[2023-07-31 14:55] VITALS: BP 129/80; PULSE 66; RESP 16; TEMP 98.8
--- NOTE | 2023-07-31 15:00 | P.PAINPG ---
PQRS Measure Charge Sheet Comment: HISTORY OF PRESENT ILLNESS: 77 yr old wheelchair bound female w at side presents today w severe and chronic LBP x 2 yrs secondary to DDD, spondylosis and facet arthropathy without myelopathy for evaluation s/p R paramedian AWA L4-L5 #1. Pt states she experienced 80% pain relief x 4 wks s/p procedure. Pt states pain level is provoked at 9 /10 in intensity, constant, localized in the lumbar spine, burning/ achy in character w shooting pain towards the BL ankles. Pain is provoked by standing, walking or over activity. Pain is alleviated by PT x 6 wks which she is currently in, medications, topical, chiropractic treatments q3 wks which she is currently in, use of a wheelchair for ambulatory assistance, repositioning and rest. Oswestry axial pain score at 29. Interventional procedures include R paramedian AWA L4-L5 x1 Medicatinos include Lyrica, Celebrex, Tyl Arthritis REVIEW OF ORGAN SYSTEMS: CONSTITUTIONAL: No fevers or chills. No recent weight loss. NEUROLOGICAL: + numbness and tingling along the distal extremities. No seizure disorders or headaches. MUSCULOSKELETAL: + pain PSYCHIATRIC: Denies current depression or suicidal thoughts. Physical Examinations : Constitutional : Cooperative , not in acute distress . Neurologic : Cranial nerve II to XII intact. No focal neurological deficits. Psychiatric : alert & oriented x 3. Matching mood & appropriate affect. Judgment & insight intact. Musculoskeletal : Cervical Spine Motor strength in the deltoid and biceps: Normal right side. Normal Left side Motor strength biceps and the wrist extensors: Normal right side . Normal left side Motor strength in the triceps muscle: Normal right side. Normal left side Deep tendon reflexes: Normal at the biceps. Normal at Brachioradialis. Normal at triceps Vertebral body tenderness to deep palpation over Cervical facet loading test: positive bilaterally Spurling test: positive bilaterally Neck distraction test: positive bilaterally Perez sign: positive bilaterally Lumbar spine Motor strength lower extremities ,thigh and legs 5/5 Right side , 5/5 Left side Deep tendon reflexes : Normal Knee Jerk. Normal Ankle Jerk Vertebral body tenderness over L5 Kam Test positive Lumbar facet Loading Test: positive Right / positive Left Range of motion of the lumbar spine Flexion 30 degrees, extension 10 degrees Straight Leg Raise test: Left< Right positive at 35 degrees Claudia test: positive right / positive left. Severe tenderness over the Sacroiliac joint on the Right / Left sides Gaenslen test: positive bilaterally Seated flexion test: positive bilaterally. Sacral spine : Severe tenderness over the Sacroiliac joint: right side / left side Range of motion: Flexion of the lumbar spine <60 degrees Range of motion: Extension of the lumbar spine <20 degrees Gaenslen's Test positive Vivek's Test positive Claudia test: positive right side / left side Thigh Thrust Test Sacral Thrust Test Imaging: CT noncontrast of the lumbar spine from 11/20/20 reviewed Assessment/ Plan : Chronic T12 compression fracture, Lumbar DDD Recommendation of BL TFESI L5-S1 #2. May need a series of injections for optimal pain relief. Risks, benefits of procedure discussed and patient verbalized understanding. Admits to aspirin or anti- coagulant use or medical history of diabetes. Protocol for discontinuation/ continuation of medications anum procedure discussed. Minimal anesthesia provided, if clinically indicated, consisting of Versed and Fentanyl. All questions answered. I have spent greater than 30 minutes on patient care today. Dr Gonzalez was available by phone for the evaluation of this patient. The time was used to review the medical records including relevant urine studies and Prescription history (MAPs), review of the available imaging, evaluation and examination of the patient, coordination of care with the medical staff and if applicable referring physicians, as well as creation of the medical record PQRS Narrative: Smoking Status Never smoker Hx Alcohol Use (MH) No Home Medications: Ambulatory Orders NIFEdipine [Nifedical Xl] 30 mg PO BID@0900,209906/28/15 mycophenolate mofetiL [Cellcept] 500 mg PO TID@0500,1400,2200 08/27/20 Celecoxib [CeleBREX] 200 mg PO BID@0900,209908/29/20 Gabapentin [Neurontin] 300 mg PO TID@0600,1400,2200 09/11/20 Famotidine [Pepcid] 20 mg PO BID@0900,209910/06/20 predniSONE 10 mg PO DAILY@0900 11/20/20 Alendronate Sodium [Fosamax] 70 mg PO WEEKLY 07/04/23 Controlled Substance Measures - Controlled Substance Measures Is patient prescribed a controlled substance at discharge?: No
== END ==
LOC: PNWHC3 13:25
PROVIDERS: ATTEND Specialist
DX: M51.36 Other intervertebral disc degeneration, lumbar region (principal); S22.080A Wedge compression fracture of T11-T12 vertebra, initial encounter for closed fracture; X58.XXXA Exposure to other specified factors, initial encounter; Z91.040 Latex allergy status; Z88.1 Allergy status to other antibiotic agents
CPT/HCPCS: 99211

== ENCOUNTER 2023-08-20 13:22 | Day surgery (SDC) | payer MEDICARE ==
[2023-08-20 14:16] VITALS: TEMP 98.6
[2023-08-20] MEDS ORDERED: IOPAMIDOL M200 10 ML VIAL ONE (14:24)
[2023-08-20] MEDS ORDERED: methylPREDNISolone ACETATE 40 MG/ML 1 ML VIAL ONE (14:24)
--- NOTE | 2023-08-20 14:49 | P.PCN ---
Date of Procedure: 08/20/23 Procedure(s) Performed: PREOPERATIVE DIAGNOSIS: 1-Lumbar radiculopathy . 2-lumbar degenerative disc disease. 3-lumbar spondylosis with lumbar facet arthropathy without myelopathy POSTOPERATIVE DIAGNOSIS: 1-lumbar radiculopathy. 2-lumbar degenerative disc disease. 3-lumbar spondylosis with facet arthropathy without myelopathy PROCEDURE 1. Transforaminal epidural steroid injection under fluoroscopic guidance at bilateral L5-S1 level. (Fluoroscopy images stored on file in the radiology Department ) 2. Lumbar epidurogram . ANESTHESIA: Local with 1% lidocaine 3 ml. EBL: Minimal PROCEDURE INDICATION: The patient with low back pain and radiculopathy symptoms unresponsive to conservative treatment. PROCEDURE DESCRIPTION / TECHNIQUE: The patient was seen and identified in the preoperative area. Risks, benefits, complications, and alternatives were discussed with the patient. The patient agreed to proceed with the procedure and signed the consent. IV was started, and vital signs were stable. Patient was taken to the OR and time out was completed. The patient was placed in the Lateral position (patient not able to stay in prone position ) . The lumbosacral area was prepped and draped in the usual sterile fashion. Critical pause was taken. Vital signs were closely monitored during the procedure. Using oblique fluoroscopy, the chin of the `Landony dog at Right L5-S1 level was identified, and the skin and deeper tissues just below was localized with 1% lidocaine. Subsequently, a 22-gauge 3.5-inch spinal needle was advanced under a tunneled view fluoroscopic guidance just underneath the chin of the `Ladnony dog at the right L5-S1 Under lateral fluoroscopy, the needle was then advanced to the posterior border of the interforaminal space. After negative aspiration of CSF and blood and with no paresthesias, 1 mL Isovue 200 contrast dye was injected excellent epidurogram and outlining of the nerve root Subsequently, 3 mL of block solution containing 20 mg Depo-Medrol and 2 mL of 0.9% normal saline PF was injected. Needle was removed and the same procedure was repeated at the left L5-S1 level . At the end of the procedure, skin was cleansed, and bandages were applied. COMPLICATIONS:none DISPOSITION / PLANS: The patient was placed in a supine position and transferred to the recovery area in a stable condition for observation. There was no evidence of lower extremity motor or sensory deficit after the procedure. Patient was discharged from the recovery room after meeting discharge criteria. Home discharge instructions were given to the patient by the staff. The patient was reexamined prior to discharge.
--- NOTE | 2023-08-20 14:59 | FL ---
Intraoperative/procedural fluoroscopic services were provided. Total fluoroscopy time is 33.6 seconds with a total of 3 submitted images to PACS. Please see the operative/procedural note for further det ails. DAP: [id number] mGycm2
[2023-08-20 15:41] VITALS: BP 138/66; PULSE 65; RESP 20
== END 2023-08-20 15:10 | disposition home or self-care (01) ==
LOC: ORPAIN 13:22
PROVIDERS: ATTEND Specialist
DX: M51.16 Intervertebral disc disorders with radiculopathy, lumbar region (principal); M47.26 Other spondylosis with radiculopathy, lumbar region
CPT/HCPCS: 64483

== ENCOUNTER → 2023-09-19 | Outpatient (CLI) | payer MEDICARE ==
[2023-09-19 14:17] VITALS: BP 134/66; PULSE 75; RESP 15; TEMP 98.6
--- NOTE | 2023-09-19 15:58 | P.PAINPG ---
PQRS Measure Charge Sheet Comment: HISTORY OF PRESENT ILLNESS: A 77 yr old wheelchair bound female w at side presents today w severe and chronic LBP x 2 yrs secondary to DDD, spondylosis and facet arthropathy without myelopathy for evaluation s/p BL TFESI L5-S1 #1. Pt states she experienced 50% pain relief x 1 wks s/p procedure. Pt states pain level is provoked at 8 /10 in intensity, constant, localized in the lumbar spine, predominantly axial, burning/ achy in character w occasional shooting pain towards the BL knees. Pain is provoked by standing, walking or over activity. Pain is alleviated by PT x 12 wks which she is currently in, medications, topical, chiropractic treatments q3 wks which she is currently in, use of a whee lchair for ambulatory assistance, repositioning and rest. Oswestry axial pain score at 29. Interventional procedures include R paramedian AWA L4-L5 x1, BL TFESI L5-S1 x1 Medications include Lyrica, Celebrex, Tyl Arthritis REVIEW OF ORGAN SYSTEMS: CONSTITUTIONAL: No fevers or chills. No recent weight loss. NEUROLOGICAL: + numbness and tingling along the distal extremities. No seizure disorders or headaches. MUSCULOSKELETAL: + pain PSYCHIATRIC: Denies current depression or suicidal thoughts. Physical Examinations : Constitutional : Cooperative , not in acute distress . Neurologic : Cranial nerve II to XII intact. No focal neurological deficits. Psychiatric : alert & oriented x 3. Matching mood & appropriate affect. Judgment & insight intact. Musculoskeletal : Cervical Spine Motor strength in the deltoid and biceps: Normal right side. Normal Left side Motor strength biceps and the wrist extensors: Normal right side . Normal left side Motor strength in the triceps muscle: Normal right side. Normal left side Deep tendon reflexes: Normal at the biceps. Normal at Brachioradialis. Normal at triceps Vertebral body tenderness to deep palpation over Cervical facet loading test: positive bilaterally Spurling test: positive bilaterally Neck distraction test: positive bilaterally Perez sign: positive bilaterally Lumbar spine Motor strength lower extremities ,thigh and legs 5/5 Right side , 5/5 Left side Deep tendon reflexes : Normal Knee Jerk. Normal Ankle Jerk Vertebral body tenderness over L5 Kam Test positive Lumbar facet Loading Test: positive Right / positive Left Range of motion of the lumbar spine Flexion 30 degrees, extension 10 degrees Straight Leg Raise test: Left< Right positive at 35 degrees Claudia test: positive right / positive left. Severe tenderness over the Sacroiliac joint on the Right / Left sides Gaenslen test: positive bilaterally Seated flexion test: positive bila terally. Sacral spine : Severe tenderness over the Sacroiliac joint: right side / left side Range of motion: Flexion of the lumbar spine <60 degrees Range of motion: Extension of the lumbar spine <20 degrees Gaenslen's Test positive Vivek's Test positive Claudia test: positive right side / left side Thigh Thrust Test Sacral Thrust Test Imaging: CT noncontrast of the lumbar spine from 11/20/20 reviewed Assessment/ Plan : Chronic T12 compression fracture, Lumbar DDD Recommendation of SCS Trial G89.4, M54.16. Referral to Dr Block at [facility]. Script for behavioral health clearance provided. All questions answered. I have spent greater than 30 minutes on patient care today. Dr Gonzalez was available by phone for the evaluation of this patient. The time was used to review the medical records including relevant urine studies and Prescription history (MAPs), review of the available imaging, evaluation and examination of the patient, coordination of care with the medical staff and if applicable referring physicians, as well as creation of the medical record PQRS Narrative: Smoking Status Never smoker Hx Alcohol Use (MH) No Home Medications: Ambulatory Orders NIFEdipine [Nifedical Xl] 30 mg PO BID@0900,209906/28/15 mycophenolate mofetiL [Cellcept] 500 mg PO TID@0500,1400,2200 08/27/20 Celecoxib [CeleBREX] 200 mg PO BID@0900,209908/29/20 Gabapentin [Neurontin] 300 mg PO TID@0600,1400,2200 09/11/20 Famotidine [Pepcid] 20 mg PO BID@0900,2100 10/06/20 predniSONE 5 mg PO Q48H 11/20/20 Alendronate Sodium [Fosamax] 70 mg PO WEEKLY 07/04/23 Controlled Substance Measures - Controlled Substance Measures Is patient prescribed a controlled substance at discharge?: No
== END ==
LOC: PNWHC3 13:25
PROVIDERS: ATTEND Specialist
DX: M51.36 Other intervertebral disc degeneration, lumbar region (principal); S22.089A Unspecified fracture of T11-T12 vertebra, initial encounter for closed fracture; Z91.040 Latex allergy status; Z88.1 Allergy status to other antibiotic agents
CPT/HCPCS: 99211

== ENCOUNTER → 2025-01-13 | Outpatient (CLI) | payer MEDICARE ==
--- NOTE | 2025-01-13 15:55 | XR ---
EXAMINATION TYPE: XR cervical spine comp DATE OF EXAM: 01/13/2025 3:49 PM INDICATION: Patient age:Female; 79 years old; Reason for study: M54.59 low back pain M54.2 Cervicalgia; [facility], pain COMPARISON: None TECHNIQUE: The cervical spine was imaged in frontal, bilateral oblique, lateral, and odontoid project ions. FINDINGS: No acute fracture. Grade 1 anterolisthesis of C4 on C5. Multilevel disc space narrowing with endplate sclerosis and anterior osteophytosis. Most pronounced involving the lower cervical spine. L2 level f acet arthropathy. Pedicles are intact. Soft tissues are within normal limits. The odontoid appears i ntact. IMPRESSION: 1. No fracture or dislocation. 2. Moderate degenerative disc disease changes of the cervical spine. 3. Grade 1 anterolisthesis of C4 on C5. [facility], , 01/13/2025 3:52 PM
--- NOTE | 2025-01-13 15:57 | XR ---
EXAMINATION TYPE: XR thoracic spine 2V DATE OF EXAM: 01/13/2025 3:49 PM INDICATION: Patient age:Female; 79 years old; Reason for study: M54.59 low back pain M54.2 Cervicalgia; PHH. pain COMPARISON: CTA chest 11/22/2020 TECHNIQUE: Frontal, lateral, swimmer's views of the thoracic spine obtained. FINDINGS: Diffuse bone demineralization which limits evaluation. No acute fracture. Vertebral body he ights are maintained. Increased thoracic kyphosis. Mild S-shaped scoliotic curvature of the visualize d thoracolumbar spine. Multilevel disc space height with endplate sclerosis and anterior osteophytosi s. Cardiomegaly. Prominent pulmonary vascular prominence. IMPRESSION: 1. No acute process. 2. Moderate multilevel degenerative disc disease. [facility], , 01/13/2025 3:55 PM
--- NOTE | 2025-01-13 16:01 | XR ---
EXAMINATION TYPE: XR lumbosacral spine min 4V DATE OF EXAM: 01/13/2025 3:49 PM INDICATION: Patient age:Female; 79 years old; Reason for study: M54.59 low back pain M54.2 Cervicalgia; [facility]. pain COMPARISON: CT abdomen and pelvis 12/02/2020, CT lumbar spine 07/23/2018 TECHNIQUE: Frontal, lateral , bilateral oblique and coned in L5-S1 lateral views of the spine. FINDINGS: There are 5 lumbar type vertebral bodies identified. No evidence of any acute osseous patho logy. Chronic anterior wedge compression deformity of the T12 vertebral body. No retropulsion identif ied. Approximately 25% height loss. Grade 1 anterolisthesis of L4-L5 redemonstrated. Multilevel disc space narrowing with endplate sclerosis of the lower lumbar spine. Mild S-shaped scoliotic curvature of the thoracolumbar spine. Atherosclerotic calcification of the aorta. IMPRESSION: 1. No acute process. 2. Chronic anterior wedge compression deformity of the T12 vertebral body. 3. Mild to moderate multilevel degenerative disc disease of the lumbar spine. [facility], , 01/13/2025 3:59 PM
== END | disposition home or self-care (01) ==
LOC: RADXRMAIN 14:49
PROVIDERS: ATTEND Family Medicine
DX: M50.30 Other cervical disc degeneration, unspecified cervical region (principal); M43.12 Spondylolisthesis, cervical region; M51.34 Other intervertebral disc degeneration, thoracic region; M48.54XA Collapsed vertebra, not elsewhere classified, thoracic region, initial encounter for fracture; M51.360 Other intervertebral disc degeneration, lumbar region with discogenic back pain only
CPT/HCPCS: 72050; 72070; 72110